=== PATIENT | male | born 1965 | race Hispanic/Latino ===

== ENCOUNTER 2021-01-30 13:21 | Emergency (ER) | payer SELFPAY ==
--- OUTSIDE RECORDS SUMMARY | 2021-01-30 13:23 | XMS REPORT | Continuity of Care Document ---
:1965 Author Organization [facility] t Address [address] [place] [address] Care Team Providers Name Role Phone Doctor Unassigned, Name Attending Clinician Unavailable Jayna Navarrete Attending Clinician Vicky ARIAS Attending Clinician Vicky ARIAS Admitting Clinician Problems This patient has no known problems. Allergies, Adverse Reactions, Alerts This patient has no known allergies or adverse reactions. Medications This patient has no known medications. Procedures This patient has no known procedures. Encounters Start End Encounter Admission Attending Care Care Encounter Source Date/Time Date/Time Type Type Clinicians Facility Department ID 2020-10-25 2020-10-25 Yolanda ROBLES [id number] 00:00:00 00:00:00 Only UnassMARY castillo [id number] [place] [facility] [id number] 2020-10-12 2020-10-14 [facility] Rose De La Paz [facility] [id number] 14:28:00 18:26:00 Encounter Keith Perry [id number] [place] [id number] [place] [id number] 2020-10-12 2020-10-12 Orders Doctor ROBLES [id number] 00:00:00 00:00:00 Only Unassigned, MARY [id number] [place] [id number] 2020-06-25 2020-06-25 Emergency Rose De La Paz [facility] [id number] 14:16:00 15:40:00 Jayna Cristina [id number] [place] [id number] [place] [id number] 2020-06-25 2020-06-25 Orders Doctor MARGARET [id number] 00:00:00 00:00:00 Only Unassigned, MARY [id number] [place] [id number] Results This patient has no known results.
[2021-01-30] MEDS ORDERED: TETRACAINE HCL 0.5% 4ML OPTH ONE (15:05)
--- NOTE | 2021-01-30 15:09 | ER ---
Nurse's Notes [facility] Name: Lino Ward Age: 55 yrs Sex: Male : 1965 Arrival Date: 01/30/2021 Time: 13:24 Bed 24 Private MD: Diagnosis: Pterygium of eye-left;Unspecified visual disturbance-blurry vision Presentation: 01/30 13:36 Chief complaint:. Chief complaint: Patient states: I have not been able to see with my ca1 L eye x 2 weeks. It started happening 2 weeks ago. Denies injury to the L eye. Went to see a regular clinic and was given eye drops but did not help at all. Has not visited an eye doctor. Coronavirus screen: Client denies travel out of the [place] in the last 14 days. At this time, the client does not indicate any symptoms associated with coronavirus-19. Ebola Screen: Patient negative for fever greater than or equal to 101.5 degrees Fahrenheit, and additional compatible Ebola Virus Disease symptoms Patient denies exposure to infectious person. Patient denies travel to an Ebola-affected area in the 21 days before illness onset. No symptoms or risks identified at this time. Initial Sepsis Screen: Does the patient meet any 2 criteria? No. Patient's initial sepsis screen is negative. Does the patient have a suspected source of infection? No. Patient's initial sepsis screen is negative. Risk Assessment: Do you want to hurt yourself or someone else? Patient reports no desire to harm self or others. Onset of symptoms was January 30, 2021. 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 ca1 Historical: - Allergies: 13:44 NKDA; ca1 - PMHx: 13:44 Diabetes - NIDDM; Hypertension; ca1 - PSHx: 13:44 right foot; Appendectomy; ca1 - Immunization history:: Flu vaccine is not up to date. - Social history:: Smoking status: . Screenin:35 Abuse screen: Denies threats or abuse. Denies injuries from another. Nutritional iw screening: No deficits noted. Tuberculosis screening: No symptoms or risk factors identified. Fall Risk None identified. Assessment: 15:13 General: Appears in no apparent distress. Behavior is calm, cooperative. Pain: Denies iw pain. Neuro: Level of Consciousness is awake, alert, obeys commands, Oriented to person, place, time, situation, Moves all extremities. Cardiovascular: Patient's skin is warm and dry. Respiratory: Respiratory effort is even, unlabored, Respiratory pattern is regular, symmetrical. Derm: Skin is intact, is healthy with good turgor. Musculoskeletal: Range of motion:. Vital Signs: 13:36 BP 132 / 78; Pulse 88; Resp 16 S; Temp 97.8(TE); Pulse Ox 98% on R/A; Weight 74.84 kg ca1 (R); Height 5 ft. 5 in. (165.10 cm) (R); Pain 0/10; 13:36 Body Mass Index 27.46 (74.84 kg, 165.10 cm) ca1 ED Course: 13:24 Patient arrived in ED. am2 13:42 Triage completed. ca1 13:44 Arm band placed on right wrist. ca1 14:34 Lion Alaniz NP is PHCP. pm1 14:34 Benny Newman MD is Attending Physician. pm1 14:54 Tavia Cool, NIKA is Primary Nurse. iw 15:20 EYE EXAM AND INTERRUPTING MALAWIAN SPEAKING ONLY. mh5 15:34 Patient has correct armband on for positive identification. iw 15:34 Patient did not have IV access during this emergency room visit. iw Administered Medications: No medications were administered Outcome: 15:08 Discharge ordered by MD. pm1 15:35 Discharged to home ambulatory. iw 15:35 Condition: good 15:35 Discharge instructions given to patient, Instructed on discharge instructions, follow up and referral plans. Demonstrated understanding of instructions, follow-up care. 15:36 Patient left the ED. iw Signatures: Tavia Cool RN RN iw Lion Alaniz NP MATERIAL SPREADER pm1 Luiza Ward 5 Alissa Keene am2 Pauline Mcallister RN RN ca1 Corrections: (The following items were deleted from the chart) 13:43 13:36 Chief complaint: Patient states: I have not been able to see with my L eye x 2 ca1 weeks. It started happening 2 weeks ago. ca1
--- NOTE | 2021-01-30 15:09 | EDPHYS ---
Physician Documentation [facility] Name: Lino Ward Age: 55 yrs Sex: Male : 1965 Arrival Date: 01/30/2021 Time: 13:24 Bed 24 Private MD: ED Physician Benny Newman HPI: 01/30 14:52 This 55 yrs old Male presents to ER via Ambulatory with complaints of Eye pm1 Problem. 14:52 The patient is experiencing blurred vision, to both eyes but worse on the left. Onset: pm1 The symptoms/episode began/occurred 2 week(s) ago. Duration: the symptoms are continuous. Aggravated by nothing. Alleviated by nothing. Associated signs and symptoms: Pertinent positives: mild pain to left eye. Patient wears glasses. Severity of symptoms: in the emergency department the symptoms are worse. The patient has not experienced similar symptoms in the past. Saw a clinic for the same complaint and was told that he has cataracts on both eyes. Given saline eye drops by the clniic. Historical: - Allergies: 13:44 NKDA; ca1 - PMHx: 13:44 Diabetes - NIDDM; Hypertension; ca1 - PSHx: 13:44 right foot; Appendectomy; ca1 - Immunization history:: Flu vaccine is not up to date. - Social history:: Smoking status: . ROS: 14:52 Constitutional: Negative for fever, chills, and weight loss. pm1 14:52 ENT: Negative for injury, pain, and discharge, Neck: Negative for injury, pain, and swelling, Cardiovascular: Negative for chest pain, palpitations, and edema, Respiratory: Negative for shortness of breath, cough, wheezing, and pleuritic chest pain, MS/Extremity: Negative for injury and deformity, Skin: Negative for injury, rash, and discoloration, Neuro: Negative for headache, weakness, numbness, tingling, and seizure. 14:52 Eyes: Positive for blurry vision, pain to left eye. Exam: 15:14 Eyes: Intraocular pressure: right eye = 15mmHg, left eye = 17mmHg. pm1 15:14 Constitutional: This is a well developed, well nourished patient who is awake, alert, pm1 and in no acute distress. Head/Face: Normocephalic, atraumatic. 15:14 Back: No spinal tenderness. No costovertebral tenderness. Full range of motion. Skin: Warm, dry with normal turgor. Normal color with no rashes, no lesions, and no evidence of cellulitis. MS/ Extremity: Pulses equal, no cyanosis. Neurovascular intact. Full, normal range of motion. 15:14 Eyes: Periorbital structures: appear normal, Pupils: no acute changes, normal size, normal accomodation, Extraocular movements: intact throughout, Conjunctiva: ptergium left eye at 9 o'clock. Corneas: foreign body, is not appreciated, a fluorescein strip employed to appreciate the findings, Lids and lashes: appear normal, bilaterally. 15:14 Cardiovascular: Exam negative for acute changes, Rate: normal, Rhythm: regular, Pulses: no pulse deficits are appreciated. 15:14 Respiratory: Exam negative for acute changes, respiratory distress, shortness of breath. 15:14 Neuro: Exam negative for acute changes, Orientation: is normal, Mentation: is normal, Motor: is normal, moves all fours, Sensation: is normal, no obvious gross deficits. Vital Signs: 13:36 BP 132 / 78; Pulse 88; Resp 16 S; Temp 97.8(TE); Pulse Ox 98% on R/A; Weight 74.84 kg ca1 (R); Height 5 ft. 5 in. (165.10 cm) (R); Pain 0/10; 13:36 Body Mass Index 27.46 (74.84 kg, 165.10 cm) ca1 MDM: 14:39 Patient medically screened. pm1 14:59 Data reviewed: vital signs. Data interpreted: Pulse oximetry: on room air is 98 %. pm1 Interpretation: normal. 14:59 ED course: Discussed case and examination with Dr. Jason. No emergent condition pm1 present. Patient needs to follow up with ophthalmology for definitive care.. 15:06 Counseling: I had a detailed discussion with the patient and/or guardian regarding: the pm1 historical points, exam findings, and any diagnostic results supporting the discharge/admit diagnosis, the need for outpatient follow up, for definitive care, an opthalmologist, to return to the emergency department if symptoms worsen or persist or if there are any questions or concerns that arise at home. 21:24 Differential diagnosis: Corneal abrasion of both eyes. Foreign body in both eyes. Acute pm1 glaucoma in both eyes. Cataracts, CVA. 01/30 14:52 Order name: Visual Acuity; Complete Time: 15:07 pm1 01/30 14:52 Order name: Eye Tray; Complete Time: 15:07 pm1 01/30 14:52 Order name: Fluoresene Opth strip; Complete Time: 14:55 pm1 Administered Medications: No medications were administered Disposition: 01/30/21 15:08 Discharged to Home. Impression: Unspecified visual disturbance - blurry vision, Pterygium of eye - left. - Condition is Stable. - Discharge Instructions: Visual Disturbances. - Medication Reconciliation Form, Thank You Letter, Antibiotic Education, Prescription Opioid Use form. - Follow up: Emergency Department; When: As needed; Reason: Worsening of condition. Follow up: Private Physician; When: 1 - 2 days; Reason: Recheck today's complaints, Continuance of care, Re-evaluation by your physician. - Problem is new. - Symptoms are unchanged. Addendum: 01/31/2021 18:36 Co-signature as Attending Physician, Benny Newman MD. m a2 Signatures: Tavia Cool RN RN iw Lion Alaniz NP DIRECTOR OF ACADEMIC SUPPORT pm1 Benny Newman MD MD ma2 Pauline Mcallister RN RN ca1 Corrections: (The following items were deleted from the chart) 01/30 15:09 15:08 01/30/2021 15:08 Discharged to Home. Impression: Pterygium of eye - left; pm1 Unspecified visual disturbance - blurry vision. Condition is Stable. Forms are Medication Reconciliation Form, Thank You Letter, Antibiotic Education, Prescription Opioid Use. Follow up: Emergency Department; When: As needed; Reason: Worsening of condition. Follow up: Private Physician; When: 1 - 2 days; Reason: Recheck today's complaints, Continuance of care, Re-evaluation by your physician. Problem is new. Symptoms are unchanged. pm1 15:36 15:09 01/30/2021 15:08 Discharged to Home. Impression: Unspecified visual disturbance - iw blurry visionPterygium of eye - left. Condition is Stable. Forms are Medication Reconciliation Form, Thank You Letter, Antibiotic Education, Prescription Opioid Use. Follow up: Emergency Department; When: As needed; Reason: Worsening of condition. Follow up: Private Physician; When: 1 - 2 days; Reason: Recheck today's complaints, Continuance of care, Re-evaluation by your physician. Problem is new. Symptoms are unchanged. pm1
[2021-01-30] MEDS ORDERED: FLUORESCEIN SODIUM 1 MG/WRAP ONE (15:10)
[2021-01-30 15:40] VITALS: BP 132/78; TEMP 97.8; O2SAT 98
== END 2021-01-30 15:36 | disposition home or self-care (01) ==
LOC: ER 13:21
DX: H11.002 Unspecified pterygium of left eye (principal); I10 Essential (primary) hypertension
CPT/HCPCS: 99281

== ENCOUNTER 2024-06-21 09:12 | Emergency (ER) | payer OTHER, SELFPAY ==
[2024-06-21 10:17] LABS: Absolute Basophils 0.1 K/uL (0-0.5); Absolute Eosinophils 0.4 K/uL (0-0.5); Absolute Lymphocytes (CBC) 2.8 K/uL (0.7-4.9); Absolute Monocytes 0.6 K/uL (0.1-1.3); Basophils % 1.7 % (0-1.3); Hematocrit 38.6 % (39.6-49.0); Hemoglobin 12.8 g/dL (13.6-17.9); Lymphocytes % 34.9 % (15.3-44.8); MCH 29.2 pg (27.0-35.0); MCHC 33.1 g/dL (32.0-36.0); MCV 88.1 fL (80-100); MPV 9.8 fL (7.6-11.3); Monocytes % 7.3 % (3.3-12.3); Neutrophils % 51.1 % (41.7-73.7); Platelets 300 thou/uL (152-406); RBC Red Blood Cell Count 4.38 M/uL (4.33-5.43); Red Cell Distribution Width 13.9 % (12.1-15.2)
[2024-06-21 10:27] LABS: Anion Gap 10.1 mEq/L (5.0-15.0); Potassium 4.1 mEq/L (3.5-5.1); Troponin High Sensitivity 4.1 pg/mL (<58.9)
--- NOTE | 2024-06-21 10:35 | RAD REPORT ---
EXAM DESCRIPTION: RAD - Wrist Left 3 View - 06/21/2024 10:28 am CLINICAL HISTORY: PAIN COMPARISON: Chest Single View dated 06/21/2024 FINDINGS/IMPRESSION: No acute fracture. No malalignment. No significant focal degenerative changes. Peripheral vascular calcifications.
--- NOTE | 2024-06-21 10:36 | RAD REPORT ---
EXAM DESCRIPTION: RAD - Chest Single View - 06/21/2024 10:28 am CLINICAL HISTORY: PAIN COMPARISON: No comparisons FINDINGS: Lines: None. Lungs: No evidence of edema or pneumonia. Minimal linear scarring or subsegmental atelectasis at the left lung base. Pleural: No significant pleural effusions or pneumothorax. Cardiac: The heart size is within normal limits. Mediastinum: Within normal limits. Bones: No acute fractures. Other: None IMPRESSION: No acute cardiopulmonary disease.
--- NOTE | 2024-06-21 11:09 | EDPHYS ---
Physician Documentation [facility] Name: Lino Ward Age: 58 yrs Sex: Male : 1965 Arrival Date: 06/21/2024 Time: 09:12 Bed 8 Private MD: ED Physician Dex Flores HPI: 06/21 09:40 This 58 yrs old Male presents to ER via Unassigned with complaints of Arm Pain jr8 - left, Lumps on head, Palpitations. 09:40 Treatment prior to arrival includes: no previous treatment. Modifying factors: The jr8 symptoms are alleviated by nothing. the symptoms are aggravated by nothing. Severity of symptoms: At their worst the symptoms were mild, in the emergency department the symptoms are unchanged. The patient has not experienced similar symptoms in the past. The patient has not recently seen a physician. Patient presented to the ED with complaints of bumps on head for two months along with left wrist pain and chest pain with palpitations. . Historical: - Allergies: 09:54 Morphine; mb9 - Home Meds: 09:54 Metformin Oral [Active]; mb9 - PMHx: 09:54 Diabetes - NIDDM; Hypertension; mb9 - PSHx: 09:54 Appendectomy; mb9 - Immunization history:: Adult Immunizations up to date. - Infectious Disease History:: Denies. - Social history:: Smoking status: Patient denies any tobacco usage or history of. ROS: 09:40 Constitutional: Negative for fever, chills, and weight loss, Eyes: Negative for injury, jr8 pain, redness, and discharge, ENT: Negative for injury, pain, and discharge, Neck: Negative for injury, pain, and swelling, Respiratory: Negative for shortness of breath, cough, wheezing, and pleuritic chest pain, Abdomen/GI: Negative for abdominal pain, nausea, vomiting, diarrhea, and constipation, Back: Negative for injury and pain, Neuro: Negative for headache, weakness, numbness, tingling, and seizure, 09:40 Cardiovascular: Positive for chest pain, palpitations, 09:40 MS/extremity: Positive for pain, of the left wrist, 09:40 Skin: Positive for lesions, of the scalp, Exam: 09:40 Constitutional: This is a well developed, well nourished patient who is awake, alert, jr8 and in no acute distress. Eyes: Pupils equal round and reactive to light, extra-ocular motions intact. Lids and lashes normal. Conjunctiva and sclera are non-icteric and not injected. Cornea within normal limits. Periorbital areas with no swelling, redness, or edema. ENT: Nares patent. No nasal discharge, no septal abnormalities noted. Tympanic membranes are normal and external auditory canals are clear. Oropharynx with no redness, swelling, or masses, exudates, or evidence of obstruction, uvula midline. Mucous membranes moist. Neck: Trachea midline, no thyromegaly or masses palpated, and no cervical lymphadenopathy. Supple, full range of motion without nuchal rigidity, or vertebral point tenderness. No Meningismus. 09:40 Cardiovascular: Regular rate and rhythm with a normal S1 and S2. No gallops, murmurs, or rubs. Normal PMI, no JVD. No pulse deficits. Respiratory: Lungs have equal breath sounds bilaterally, clear to auscultation and percussion. No rales, rhonchi or wheezes noted. No increased work of breathing, no retractions or nasal flaring. Abdomen/GI: Soft, non-tender, with normal bowel sounds. No distension or tympany. No guarding or rebound. No evidence of tenderness throughout. Back: No spinal tenderness. No costovertebral tenderness. Full range of motion. Skin: Warm, dry with normal turgor. Normal color. Neuro: Awake and alert, GCS 15, oriented to person, place, time, and situation. Motor strength 5/5 in all extremities. Sensory grossly intact. Normal gait. 09:40 Head/face: Noted is Patient has two scabbed lesions with mild erythema and serous drainage noted to left and right side of parietal regions of scalp. 09:40 Chest/axilla: Inspection: normal, Palpation: tenderness, that is mild, of the anterior aspect of left upper chest, that partially reproduces the patient's complaints, 09:40 Musculoskeletal/extremity: Extremities: grossly normal except: noted in the left wrist : pain, tenderness, Positive Tinel , ROM: intact in all extremities, full active range of motion, full passive range of motion, Circulation is intact in all extremities. Pulses: noted to be 2+ in the right radial artery and left radial artery, Sensation intact. 09:53 ECG was reviewed by the Attending Physician. jr8 Vital Signs: 09:52 BP 141 / 82; Pulse 79; Resp 18; Temp 98; Pulse Ox 100% ; Weight 74.39 kg; Height 5 ft. mb9 5 in. ; Pain 0/10; 11:10 BP 110 / 75; Pulse 74; Resp 18; Pulse Ox 100% on R/A; mb9 09:52 Body Mass Index 27.29 (74.39 kg, 165.1 cm) mb9 09:52 Pain Scale: Adult mb9 MDM: 09:27 Patient medically screened. [facility] 11:03 Data reviewed: vital signs, nurses notes, lab test result(s), EKG, radiologic studies, jr8 plain films. I considered the following discharge prescriptions or medication management in the emergency department I discussed and recommended Over The Counter medications. Counseling: I had a detailed discussion with the patient and/or guardian regarding the historical points, exam findings, and any diagnostic results supporting the discharge/admit diagnosis, lab results, radiology results, the need for outpatient follow up, a dye house vat worker, a family practitioner, to return to the emergency department if symptoms worsen or persist or if there are any questions or concerns that arise at home. Special discussion: Based on the patient's history, exam, and Dx evaluation, there is no indication for emergent intervention or inpatient Tx. It is understood by the patient/guardian that if the Sx's persist or worsen they need to return immediately for re-evaluation. I have referred the patient to see his PCP for further evaluation of high blood pressure. 11:04 Care significantly affected by the following chronic conditions: Diabetes, jr8 Hypertension, Chronic Kidney Disease. 06/21 09:37 Order name: Basic Metabolic Panel; Complete Time: 11:02 06/21 09:37 Order name: CBC with Diff; Complete Time: 11:02 06/21 09:37 Order name: Troponin HS; Complete Time: 11:02 06/21 09:37 Order name: XRAY Chest (1 view); Complete Time: 11:02 06/21 09:37 Order name: Wrist Left (3 View) XRAY; Complete Time: 11:02 06/21 09:37 Order name: EKG; Complete Time: 09:38 06/21 09:37 Order name: Cardiac monitoring; Complete Time: 09:53 06/21 09:37 Order name: EKG - Nurse/Tech; Complete Time: 53 8 06/21 09:37 Order name: IV Saline Lock; Complete Time: 06/21 09:37 Order name: Labs collected and sent; Complete Time: 06/21 09:37 Order name: O2 Per Protocol; Complete Time: 06/21 09:37 Order name: O2 Sat Monitoring; Complete Time: EC:53 Rate is 83 beats/min. Rhythm is regular, Normal Sinus Rhythm. QRS [place] is Normal. IN jr8 interval is normal at 192 msec. QRS interval is normal at 84 msec. QT interval is normal at 423 msec. No Q waves. T waves are Inverted in lead aVL. T waves are Flattened in lead V1. No ST changes noted. Clinical impression: NSR w/ Non-specific ST/T Changes. Interpreted by me. Reviewed by me. 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 jr8 - Chest pain, unspecified jr8 - Chronic kidney disease, unspecified jr8 - Local infection of the skin and subcutaneous tissue, unspecified jr8 Followup: jr8 - With: Ervin Gabriel MD - When: 1 week - Reason: Recheck today's complaints, Continuance of care, Re-evaluation by your physician Discharge Instructions: - Discharge Summary Sheet jr8 - Carpal Tunnel Syndrome jr8 - Nonspecific Chest Pain, Adult jr8 - Diabetic Neuropathy jr8 - Chronic Kidney Disease, Adult jr8 Forms: - Medication Reconciliation Form jr8 - Antibiotic Education jr8 - Prescription Opioid Use jr8 - Patient Portal Instructions jr8 - Leadership Thank You Letter jr8 Prescriptions: - mupirocin 2 % Topical ointment - apply 1 application TOPICAL route 2 times per day; 30 gram tube; Refills: 0, jr8 Product Selection Permitted - Augmentin 875-125 mg Oral Tablet - take 1 tablet ORAL route every 12 hours for 10 days; 20 tablet; Refills: 0, jr8 Product Selection Permitted Signatures: Dispatcher [employer] Dex Whiteside MD MD cha Roszak, Josh, PA PA jr8 Simona Dockery RN RN mb9 Corrections: (The following items were deleted from the chart) 11:06 11:03 I considered the following discharge prescriptions or medication management in jr8 the emergency department I discussed and recommended Over The Counter medications, 8
--- NOTE | 2024-06-21 11:09 | ER ---
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 Coronavirus screen: Vaccine status: Patient reports receiving the 2nd dose of the covid vaccine. Ebola Screen: No symptoms or risks identified at this time. Initial Sepsis Screen: Does the patient meet any 2 criteria? No. Patient's initial sepsis screen is negative. Does the patient have a suspected source of infection? No. Patient's initial sepsis screen is negative. Risk Assessment: Do you want to hurt yourself or someone else? Patient reports no desire to harm self or others. Onset of symptoms was June 17, 2024. 09:52 Acuity: MARITZA 3 mb9 09:52 Method Of Arrival: Ambulatory mb9 Triage Assessment: 09:55 General: Appears in no apparent distress. Behavior is calm, cooperative. Pain: Denies mb9 pain. EENT: No signs and/or symptoms were reported regarding the EENT system. Neuro: [place]gu[place] Agitation-Sedation Scale (RASS): 0 - Alert and Calm Level of Consciousness is awake, alert, obeys commands, Oriented to person, place, time, situation, Appropriate for age. Cardiovascular: Heart tones S1 S2 present Patient's skin is warm and dry. Cardiovascular: Reports palpitations. Respiratory: Airway is patent Respiratory effort is even, unlabored, Respiratory pattern is regular, symmetrical. GI: Abdomen is flat, non-distended, Bowel sounds present X 4 quads. Abd is soft and non tender X 4 quads. : No signs and/or symptoms were reported regarding the genitourinary system. Derm: Skin is pink, warm \\T\\ dry. Musculoskeletal: Range of motion: intact in all extremities. Historical: - Allergies: 09:54 Morphine; mb9 - Home Meds: 09:54 Metformin Oral [Active]; mb9 - PMHx: 09:54 Diabetes - NIDDM; Hypertension; mb9 - PSHx: 09:54 Appendectomy; mb9 - Immunization history:: Adult Immunizations up to date. - Infectious Disease History:: Denies. - Social history:: Smoking status: Patient denies any tobacco usage or history of. Screenin:56 [facility] ED Fall Risk Assessment (Adult) History of falling in the last 3 months, mb9 including since admission No falls in past 3 months (0 pts) Confusion or Disorientation No (0 pts) Intoxicated or Sedated No (0 pts) Impaired Gait No (0 pts) Mobility Assist Device Used No (0 pt) Altered Elimination No (0 pt) Score/Fall Risk Level 0 - 2 = Low Risk Oriented to surroundings, Maintained a safe environment, Educated pt \\T\\ family on fall prevention, incl call for assistance when getting out of bed. Abuse screen: Denies threats or abuse. Nutritional screening: No deficits noted. Tuberculosis screening: No symptoms or risk factors identified. Assessment: :55 Reassessment: see triage assessment. mb9 11:09 Reassessment: No changes from previously documented assessment. Patient and/or family mb9 updated on plan of care and expected duration. Pain level reassessed. Patient is alert, oriented x 3, equal unlabored respirations, skin warm/dry/pink. Vital Signs: 09:52 BP 141 / 82; Pulse 79; Resp 18; Temp 98; Pulse Ox 100% ; Weight 74.39 kg; Height 5 ft. mb9 5 in. ; Pain 0/10; 11:10 BP 110 / 75; Pulse 74; Resp 18; Pulse Ox 100% on R/A; mb9 09:52 Body Mass Index 27.29 (74.39 kg, 165.1 cm) mb9 09:52 Pain Scale: Adult mb9 ED Course: 09:19 Patient arrived in ED. im 09:24 Rey Chatman PA is PHCP. jr8 09:24 Dex Flores MD is Attending Physician. jr8 09:41 Simona Dockery RN is Primary Nurse. mb9 09:41 Arm band placed on. mb9 09:52 Initial lab(s) drawn, by me, sent to lab. EKG done, by ED staff, reviewed by Rey BANDA. Inserted saline lock: 22 gauge in right forearm, using aseptic technique. Blood collected. Flushed with 10 mL NS. 09:54 Triage completed. mb9 09:56 Placed in gown. Bed in low position. Call light in reach. Side rails up X 1. Provided mb9 Education on: press call light if needing anything. Client placed on continuous cardiac and pulse oximetry monitoring. NIBP monitoring applied. manager monitoring on. Door closed. Noise minimized. Warm blanket given. Pillow given. 09:56 No provider procedures requiring assistance completed. mb9 10:30 XRAY Chest (1 view) In Process Unspecified. EDMS 10:30 Wrist Left (3 View) XRAY In Process Unspecified. EDMS 11:07 Ervin Gabriel MD is Referral Physician. jr8 11:16 IV discontinued, intact, bleeding controlled, No redness/swelling at site. Pressure mb9 dressing applied. Administered Medications: No medications were administered Medication: :56 VIS not applicable for this client. mb9 Outcome: 11:08 Discharge ordered by . jr8 11:16 Discharged to home ambulatory, mb9 11:16 Condition: stable 11:16 Discharge instructions given to patient, Instructed on discharge instructions, follow up and referral plans. Demonstrated understanding of instructions, follow-up care, medications, Prescriptions given X 2, 11:16 Patient left the ED. mb9 Signatures: Dispatcher [employer] PATYMI Rey Chatman PA PA jr8 Wilkerson, Mary Beth, RN RN mb9 Cynthia Ferreira
[2024-06-21 11:38] VITALS: TEMP 98; O2SAT 100
[2024-06-21 11:41] VITALS: BP 110/75
--- OUTSIDE RECORDS SUMMARY | 2024-06-23 12:27 | XMS REPORT | Continuity of Care Document ---
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 capsule by mouth 2 (two) times daily. [facility] lisinopriL 10 mg tablet 01-09 00:00: 00 04-24 00:00 :00 No [id number] 10mg Take 1 tablet by mouth daily. [facility] linaGLIPtin (TRADJENTA) 5 mg tablet 01-09 00:00: 00 01-25 00:00 :00 No [id number] 5mg Take 1 tablet by mouth daily. [facility] povidone-io dine (BETADINE) 10 % solution 2023-0 2-16 15:00: 00 Yes Topical, DAILY, First dose on Sat12/20/22 at 0900, Until Discontinu ed, Routine [facility] lisinopriL 10 mg tablet 12-20 11:47: 48 Yes 10mg Take 10 mg by mouth daily. [facility] metFORMIN 1,000 mg tablet 12-20 11:47: 48 Yes 1000mg Take 1,000 mg by mouth 2 (two) times daily with meals. [facility] glipiZIDE 10 mg tablet 12-20 11:47: 48 Yes 10mg Take 10 mg by mouth daily. [facility] atorvastati n (LIPITOR) tablet 40 mg 12-20 03:00: 00 Yes 40mg 40 mg, Oral, QHS, First dose on Sat12/19/22 at 2100, Until Discontinu ed, Routine [facility] enoxaparin (LOVENOX) injection 30 mg 12-19 23:00: 00 Yes 30mg 30 mg, Subcutaneo us, DAILY, First dose on Sat12/19/22 at 1700, Until Discontinu ed, [facility]OTROL[facility] 10 mg 12-19 15:00: 00 Yes 10mg 10 mg, Oral, DAILY, First dose on Sat12/19/22 at 0900, Until Discontinu ed, [facility] sennos[facility]- docusate sodium (SENOKOT-S) 8.6-50 mg per tablet 1 tablet 12-19 15:00: 00 Yes 1{tbl} 1 tablet, Oral, DAILY, First dose on Sat12/19/22 at 0900, Until Discontinu ed, Routine [facility] clindamycin (CLEOCIN HCL) capsule 300 mg 12-19 14:00: 00 Yes 300mg 300 mg, Oral, TID, First dose on Sat12/19/22 at 0800, Until Discontinu ed, JENNIFER
Re ason for Anti-Infec tive: Documented Infection< br>Documen vern Infection Site: Skin / Soft Tissue
Duration of Therapy: 7 days
Re stricted use approved by: ED PROVIDER [facility] gabapentin (NEURONTIN) capsule 300 mg 12-19 14:00: 00 Yes 300mg 300 mg, Oral, BID, First dose on Sat12/19/22 at 0800, Until Discontinu ed, Routine [facility] aspirin chewable tablet 81 mg 12-19 14:00: 00 Yes 81mg 81 mg, Oral, QAM WITH BREAKFAST, First dose on Sat12/19/22 at 0800, Until Discontinu ed, Routine [facility] insulin NPH and regular human 70-30 (70-30 U-100 INSULIN) 100 unit/mL (70-30) injection 10 Units 12-19 13:30: 00 Yes 10U 10 Units, Subcutaneo us, BIDAC, First dose on Sat12/19/22 at 0730, Until Discontinu ed, Routine [facility] ciprofloxac in HCl (CIPRO) tablet 500 mg 12-19 12:00: 00 Yes 500mg 500 mg, Oral, Q24H ABX, First dose on Sat12/19/22 at 0600, Until Discontinu ed, JENNIFER
Re ason for Anti-Infec tive: Documented Infection< br>Documen vern Infection Site: Skin / Soft Tissue
Duration of Therapy: 7 days [facility] NaCl 0.9% (NS) IV infusion 1,000 mL 12-19 08:30: 00 12-20 08:29 :00 No 1000mL at 100 mL/hr, IV Infusion, CONTINUOUS , Starting on Sat12/19/22 at 0230, Until Sat12/20/22 at 0229, Routine [facility] ondansetron (ZOFRAN (PF)) injection 4 mg 12-19 07:15: 38 Yes 4mg 4 mg, Slow IV Push, Q6HPRN, Starting on Sat12/19/22 at 0115, Until Discontinu ed, Routine, Nausea and Vomiting (N/V) [facility] HYDROcodone -acetaminop hen (NORCO 5) 5-325 mg tablet 1 tablet 12-19 07:15: 34 12-21 07:14 :34 No 1{tbl} 1 tablet, Oral, Q6HPRN, Starting on Sat12/19/22 at 0115, Until Sat12/21/22 at 0114, Routine, Pain (scale 4-6) [facility] acetaminoph en (TYLENOL) tablet 650 mg 12-19 07:15: 32 Yes 650mg 650 mg, Oral, Q6HPRN, Starting on Sat12/19/22 at 0115, Until Discontinu ed, Routine, Pain (scale 1-3) [facility] HYDROcodone -acetaminop hen (NORCO) 10-325 mg tablet 1 tablet 12-19 04:04: 53 12-19 07:16 :02 No 1{tbl} 1 tablet, Oral, Q6HPRN, Starting on Sat12/18/22 at 2204, Until Sat12/19/22 at 0116, Routine, Pain (scale 4-6) [facility] piperacilli n-tazobacta m (ZOSYN) 3.375 g in NaCl 0.9% (NS) 50 mL MINI-BAG 12-18 22:45: 00 12-19 01:34 :00 No 3.375g 3.375 g, IV Piggyback, ONCE, 1 dose, On Sat12/18/22 at 1645, Administer over 30 Minutes, 50 mL
Reas on for Anti-Infec tive: Empiric Therapy for Suspected Infection< br>Empiric Therapy Site: Skin / Soft tissue
Duration of therapy: 72 hours [facility] lisinopriL 10 mg tablet 12-13 17:53: 09 Yes 10mg Take 10 mg by mouth daily. [facility] metFORMIN 1,000 mg tablet 12-13 17:53: 09 Yes 1000mg Take 1,000 mg by mouth 2 (two) times daily with meals. [facility] glipiZIDE 10 mg tablet 12-13 17:53: 09 Yes 10mg Take 10 mg by mouth daily. [facility] lisinopriL 10 mg tablet 12-13 11:38: 47 Yes 10mg Take 10 mg by mouth daily. [facility] metFORMIN 1,000 mg tablet 12-13 11:38: 47 Yes 1000mg Take 1,000 mg by mouth 2 (two) times daily with meals. [facility] glipiZIDE 10 mg tablet 12-13 11:38: 47 Yes 10mg Take 10 mg by mouth daily. [facility] piperacilli n-tazobacta m (ZOSYN) 3.375 g in NaCl 0.9% (NS) 50 mL MINI-BAG 12-13 06:00: 00 01-21 04:59 :00 No 3.375g 3.375 g, IV Piggyback, Q8H ABX, 117 doses, First dose on Asuncion 12/13/22 at 0000, Last dose on Sat01/20/23 at 1600, Administer over 4 Hours, 50 mL
Reas on for Anti-Infec tive: Documented Infection& lt;br>Docu mented Infection Site: Bone
Du ration of Therapy: Other (see Comments) [facility] lactated ringers IV infusion 1,000 mL 12-13 00:45: 00 Yes 1000mL at 75 mL/hr, 1,000 mL, IV Infusion, CONTINUOUS , Starting on Sat12/12/22 at 1845, Until Discontinu ed, Routine, PACU [facility] HYDROcodone -acetaminop hen (NORCO 5) 5-325 mg tablet 1 tablet 12-13 00:45: 00 12-13 00:57 :00 No 1{tbl} 1 tablet, Oral, ONCE, 1 dose, On Sat12/12/22 at 1845, Routine, PACU [facility] bupivacaine (preserv free) (SENSORCAIN E MPF) 0.25 % (2.5 mg/mL) injection 12-13 00:39: 00 12-13 01:00 :26 No PRN, Starting on Sat12/12/22 at 1839, Until Sat12/12/22 at 1900, Routine, Intra-op [facility] ciprofloxac in HCl 500 mg tablet 12-13 00:00: 00 12-28 05:59 :00 No [id number] 500mg Take 1 tablet by mouth every 12 (twelve) hours for 14 days. [facility] clindamycin 300 mg capsule 12-13 00:00: 12-28 05:59 :00 No [id number] 300mg Take 1 capsule by mouth 3 (three) times daily for 14 days. [facility] piperacilli n-tazobacta m (ZOSYN) 3.375 g in NaCl 0.9% (NS) 50 mL MINI-BAG 12-12 23:00: 00 12-12 22:50 :00 No 3.375g 3.375 g, IV Piggyback, ONCE, 1 dose, On Sat12/12/22 at 1700, Administer over 30 Minutes, 50 mL
Reas on for Anti-Infec tive: Documented Infection< br>Documen vern Infection Site: Bone
Du ration of Therapy: 14 days [facility] ampicillin- sulbactam (UNASYN) 3 g in NaCl 0.9% (NS) 100 mL MINI-BAG 12-12 16:45: 00 12-12 21:23 :53 No 3g 3 g, IV Piggyback, Q6H ABX, 56 doses, First dose on Sat12/12/22 at 1045, Last dose on Sat12/26/22 at 0445, Administer over 30 Minutes, 100 mL
Reas on for Anti-Infec tive: Documented Infection& lt;br>Docu mented Infection Site: Bone
Du ration of Therapy: 14 days [facility] enoxaparin 30 mg/0.3 mL injection 12-12 00:00: 00 01-10 05:59 :00 No [id number] 30mg inject 0.3 mL under the skin every 12 (twelve) hours for 28 days. [facility] KCL (KLOR-CON M20) tablet 40 mEq 12-11 21:45: 00 12-11 21:42 :00 No 40meq 40 mEq, Oral, ONCE, 1 dose, On Sat12/11/22 at 1545, Routine [facility] loperamide (IMODIUM A-D) capsule 2 mg 12-11 21:00: 13 Yes 2mg 2 mg, Oral, Q4HPRN, Starting on Sat12/11/22 at 1500, Until Discontinu ed, Routine, Diarrhea [facility] gadoteridol (PROHANCE-1 5 mL) injection 14.52 mL 12-11 03:00: 00 12-11 03:00 :00 No [id number] .2mL/kg 14.52 mL (0.2 mL/kg ?72.6 kg), Intravenou s, ONCE, 1 dose, On Sat12/10/22 at 2100, Routine [facility] piperacilli n-tazobacta m (ZOSYN) 3.375 g in NaCl 0.9% (NS) 50 mL MINI-BAG 12-11 00:00: 00 12-12 15:44 :29 No 3.375g 3.375 g, IV Piggyback, Q8H ABX, 84 doses, First dose on Sat12/10/22 at 1800, Last dose on Sat01/07/23 at 1000, Administer over 4 Hours, 50 mL
Reas on for Anti-Infec tive: Documented Infection< br>Documen vern Infection Site: Bone
Du ration of Therapy: Other (see Comments) [facility] doxycycline hyclate (Vibramycin ) capsule 100 mg 12-11 00:00: 00 12-12 15:44 :29 No 100mg 100 mg, Oral, Q12HA2, 56 doses, First dose on Sat12/10/22 at 1800, Last dose on Sat01/07/23 at 0600, JENNIFER
Re ason for Anti-Infec tive: Documented Infection< br>Documen vern Infection Site: Bone
Du ration of Therapy: Other (see Comments) [facility] piperacilli n-tazobacta m (ZOSYN) 3.375 g in NaCl 0.9% (NS) 50 mL MINI-BAG 12-10 16:15: 00 12-10 16:52 :00 No 3.375g 3.375 g, IV Piggyback, ONCE, 1 dose, On 12/10/22 at 1015, Administer over 30 Minutes, 50 mL
Reas on for Anti-Infec tive: Documented Infection< br>Documen vern Infection Site: Bone
Du ration of Therapy: Other (see Comments) [facility] atorvastati n (LIPITOR) tablet 40 mg 12-10 03:00: 00 Yes 40mg 40 mg, Oral, QHS, First dose on 12/09/22 at 2100, Until Discontinu ed, Routine [facility] ampicillin- sulbactam (UNASYN) 3 g in NaCl 0.9% (NS) 100 mL MINI-BAG 12-09 18:45: 00 12-10 15:16 :08 No 3g 3 g, IV Piggyback, Q6H ABX, 56 doses, First dose on 12/09/22 at 1245, Last dose on 12/23/22 at 0645, Administer over 30 Minutes, 100 mL
Reas on for Anti-Infec tive: Documented Infection& lt;br>Docu mented Infection Site: Bone
Du ration of Therapy: 14 days [facility] enoxaparin (LOVENOX) injection 40 mg 12-09 15:00: 00 Yes 40mg 40 mg, Subcutaneo us, DAILY, First dose on 12/09/22 at 0900, Until Discontinu ed, Routine [facility] Sliding Scale Insulin - Lispro (HumaLOG) + Fsbg Testing 12-09 14:00: 00 Yes Subcutaneo us, TID MEALS+HS, First dose on 12/09/22 at 0800, Until Discontinu ed, Routine [facility] gabapentin (NEURONTIN) capsule 300 mg 12-09 14:00: 00 Yes 300mg 300 mg, Oral, BID, First dose on 12/09/22 at 0800, Until Discontinu ed, Routine [facility] insulin NPH and regular human 70-30 (70-30 U-100 INSULIN) 100 unit/mL (70-30) injection 10 Units 12-09 13:30: 00 Yes 10U 10 Units, Subcutaneo us, BIDAC, First dose on 12/09/22 at 0730, Until Discontinu ed, Routine [facility] hydrALAZINE (APRESOLINE ) tablet 10 mg 12-09 11:37: 48 Yes 10mg 10 mg, Oral, Q8HPRN, Starting on 12/09/22 at 0537, Until Discontinu ed, Routine, SBP >160 [facility] lactated ringers IV infusion 1,000 mL 12-09 03:15: 00 12-12 22:23 :08 No 1000mL at 125 mL/hr, 1,000 mL, IV Infusion, CONTINUOUS , Starting on 12/08/22 at 2115, Until 12/12/22 at 1623, Routine [facility] ondansetron (ZOFRAN (PF)) injection 4 mg 12-09 03:09: 47 Yes 4mg 4 mg, Slow IV Push, Q6HPRN, Starting on 12/08/22 at 210, Until Discontinu ed, Routine, Nausea and Vomiting (N/V) [facility] HYDROcodone -acetaminop hen (NORCO 5) 5-325 mg tablet 1 tablet 12-09 03:09: 41 12-11 03:08 :41 No 1{tbl} 1 tablet, Oral, Q6HPRN, Starting on 12/08/22 at 210, Until 12/10/22 at 210, Routine, Pain (scale 4-6) [facility] acetaminoph en (TYLENOL) tablet 650 mg 12-09 03:09: 37 Yes 650mg 650 mg, Oral, Q6HPRN, Starting on 12/08/22 at 210, Until Discontinu ed, Routine, Pain (scale 1-3) [facility] dextrose 10% (D10W) bolus infusion 250 mL 12-09 03:08: 03 Yes 250mL 250 mL, IV Infusion, PRN - SEE INSTRUCTIO NS, Administer over 60 Minutes, Other, If blood glucose is < or = 70 mg/dL and patient is unable to swallow or has mental status changes, Starting on 12/08/22 at 2108
If blood glucose is < or = 70 mg/dL and patient is unable to swallow or has mental status changes (Give glucagon order if patient needs fluid restrictio n): IF IV access available: Dextrose 10%. 1. 125 mL (? bag) of D10W IV infusion - equivalent to 12.5 g dextrose 2. Blood glucose - draw blood glucose 15 minutes after D10W Administra tion. 3. If blood glucose is < 80 mg/dL, repeat.
[facility] glucagon (GLUCAGEN DIAGNOSTIC KIT) injection 1 mg 12-09 03:07: 59 Yes 1mg 1 mg, Intramuscu lar, PRN, Starting on 12/08/22 at 2107, Until Discontinu ed, JENNIFER, Blood Glucose < or = 70 mg/dL and patient is NPO, unable to swallow or has mental changes. [facility] morpHINE (4 mg/mL) injection 4 mg 12-09 01:00: 00 12-09 00:25 :00 No 4mg 4 mg, Slow IV Push, ONCE, 1 dose, On 12/08/22 at 1900, JENNIFER [facility] ondansetron (ZOFRAN (PF)) injection 4 mg 12-09 00:15: 00 12-09 00:25 :00 No 4mg 4 mg, Slow IV Push, ONCE, 1 dose, On 12/08/22 at 1815, JENNIFER [facility] NaCl 0.9% (NS) bolus infusion 1,000 mL 12-08 23:30: 00 12-09 01:15 :00 No 1000mL at 999 mL/hr, 1,000 mL, IV Infusion, ONCE, 1 dose, On 12/08/22 at 1730, JENNIFER [facility] vancomycin (VANCOCIN) 1,000 mg in NaCl 0.9% (NS) 250 mL VIAL-MATE IV piggyback 12-08 23:30: 00 12-09 00:11 :00 No 1000mg 1,000 mg, IV Piggyback, ONCE, 1 dose, On 12/08/22 at 1730, Administer over 60 Minutes, 250 mL
Reas on for Anti-Infec tive: Documented Infection< br>Documen vern Infection Site: Skin / Soft Tissue
Duration of Therapy: 7 days [facility] ketorolac (TORADOL) injection 30 mg 12-08 23:30: 00 12-08 23:02 :00 No 30mg 30 mg, Slow IV Push, ONCE, 1 dose, On 12/08/22 at 1730, JENNIFER [facility] insulin regular human (HUMULIN R) injection 6 Units 12-08 23:30: 00 12-08 23:11 :00 No 6U 6 Units, Subcutaneo us, ONCE, 1 dose, On 12/08/22 at 1730, JENNIFER
In dication for insulin: Hyperglyce [facility] lisinopriL 10 mg tablet 12-08 21:12: 01 Yes 10mg Take 10 mg by mouth daily. [facility] metFORMIN 1,000 mg tablet 12-08 21:12: 01 Yes 1000mg Take 1,000 mg by mouth 2 (two) times daily with meals. [facility] glipiZIDE 10 mg tablet 12-08 21:12: 01 Yes 10mg Take 10 mg by mouth daily. [facility] cefTRIAXone (ROCEPHIN) 1,000 mg in NaCl 0.9% (NS) 50 mL MINI-BAG 12-08 19:30: 00 12-08 20:57 :00 No 1000mg 1,000 mg, IV Piggyback, ONCE, 1 dose, On 12/08/22 at 1330, Administer over 30 Minutes, 50 mL
Reas on for Anti-Infec tive: Empiric Therapy for Suspected Infection< br>Empiric Therapy Site: Skin / Soft tissue
Duration of therapy: 72 hours [facility] iopamidol (ISOVUE 370-500 mL) injection 88 mL 12-01 23:45: 00 12-02 00:00 :00 No [id number] 88mL 88 mL, Intravenou s, ONCE, 1 dose, On 12/01/22 at 1800, Routine [facility] ondansetron (ZOFRAN (PF)) injection 4 mg 12-01 22:30: 00 12-01 21:46 :00 No 4mg 4 mg, Slow IV Push, ONCE, 1 dose, [facility]01[facility]22 [facility] 1630[facility] 975 mg 12-01 22:30: 00 12-01 21:46 :00 No 975mg 975 mg, Oral, ONCE, 1 dose, On 12/01/22 at 1630, [facility] 15 mg 12-01 22:15: 00 12-01 21:45 :00 No 15mg 15 mg, Slow IV Push, ONCE, 1 dose, On 12/01/22 at 1615, [facility] mg [facility] 12-01 00:00: 00 12-08 00:00 :00 No [id number] 500mg Take 1 tablet by mouth 2 (two) times daily with meals for 10 days. [facility] ondansetron 4 mg disintegrat ing tablet 12-01 00:00: 00 12-08 00:00 :00 No [id number] 4mg Take 1 tablet by mouth every 4 (four) hours as needed for Nausea and Vomiting (N/V). [facility] aspirin 81 mg chewable tablet 2021-11 00:00: 00 Yes [id number] 81mg Take 1 tablet by mouth daily with breakfast. [facility] gabapentin 300 mg capsule 2021-11 00:00: 00 Yes [id number] 300mg Take 1 capsule by mouth 2 (two) times daily. [facility] atorvastati n 40 mg tablet 2021-11 00:00: 00 Yes [id number] 40mg Take 1 tablet by mouth at bedtime. [facility] collagenase 250 unit/gram ointment 2021-11 00:00: 00 12-08 00:00 :00 No [id number] Apply to affected area(s) daily. [facility] acetaminoph en-codeine 300-30 mg tablet 2021-11 00:00: 00 12-08 00:00 :00 No [id number] 1{tbl} Take 1 tablet by mouth every 4 (four) hours as needed for Pain (scale 7-10). Indication s: acute pain [facility] collagenase 250 unit/gram ointment 2021-11 00:00: 00 Yes [id number] Apply to affected area(s) daily. [facility] atorvastati n 40 mg tablet 2021-11 00:00: 00 Yes [id number] 40mg Take 1 tablet by mouth at bedtime. [facility] gabapentin 300 mg capsule 2021-11 00:00: 00 Yes [id number] 300mg Take 1 capsule by mouth 2 (two) times daily. [facility] insulin NPH and regular human 70-30 100 unit/mL (70-30) injection 2021-11 00:00: 00 01-25 00:00 :00 No [id number] 10U inject 10 Units under the skin 2 (two) times daily before breakfast and dinner. [facility] acetaminoph en-codeine 300-30 mg tablet 2021-11 00:00: 00 10-25 05:59 :00 No [id number] 1{tbl} Take 1 tablet by mouth every 4 (four) hours as needed for Pain (scale 7-10) for up to 7 days. Indication s: acute pain [facility] collagenase 250 unit/gram ointment 2021-11 00:00: 00 Yes [id number] Apply to affected area(s) daily. [facility] acetaminoph en (TYLENOL) tablet 650 mg 2021-11 02:29: 25 Yes 650mg 650 mg, Oral, Q4HPRN, Starting on Sat09/05/22 at 2129, Until Discontinu ed, Routine, Pain (scale 1-3) [facility] amoxicillin -clavulanat e (AUGMENTIN) 875-125 mg per tablet 1 tablet 2021-11 01:00: 00 10-18 01:59 :00 No 1{tbl} 1 tablet, Oral, Q12H, 84 doses, First dose on Sat09/05/22 at 2000, Last dose on Sat10/17/22 at 0800, Routine
Reason for Anti-Infec tive: Documented Infection< br>Documen vern Infection Site: Skin / Soft Tissue
Duration of Therapy: Other (see Comments) [facility] aspirin 81 mg chewable tablet 2021-11 00:00: 00 Yes [id number] 81mg Take 1 tablet by mouth daily with breakfast. [facility] amoxicillin -clavulanat e 875-125 mg per tablet 2021-11 00:00: 00 10-22 05:59 :00 No [id number] 1{tbl} Take 1 tablet by mouth every 12 (twelve) hours for 45 days. [facility] metoclopram victorino HCl (REGLAN) injection 10 mg 2021-11 23:00: 00 Yes 10mg 10 mg, Slow IV Push, Q6H, First dose on Sat09/05/22 at 1800, Until Discontinu ed, Routine [facility] collagenase (SANTYL) ointment 2021-11 14:00: 00 Yes Topical (Apply To Affected Areas), DAILY, First dose on Sat09/05/22 at 0900, Until Discontinu ed, Routine [facility] metoclopram victorino HCl 10 mg tablet 2021-11 00:00: 00 12-08 00:00 :00 No [id number] 10mg Take 1 tablet by mouth every 6 (six) hours as needed for Nausea and Vomiting (N/V). [facility] atorvastati n 20 mg tablet 2021-11 00:00: 00 10-06 05:59 :00 No [id number] 20mg Take 1 tablet by mouth at bedtime for 30 days. [facility] lisinopriL 10 mg tablet 2021-11 00:00: 00 10-06 05:59 :00 No [id number] 10mg Take 1 tablet by mouth daily for 30 days. [facility] traMADoL 50 mg tablet 2021-11 00:00: 00 09-11 05:59 :00 No [id number] 50mg Take 1 tablet by mouth every 8 (eight) hours as needed for Pain (scale 7-10) for up to 5 days. Indication s: acute pain [facility] amoxicillin -clavulanat e 875-125 mg per tablet 2021-11 00:00: 00 09-06 00:00 :00 No [id number] 1{tbl} Take 1 tablet by mouth every 12 (twelve) hours for 30 days. [facility] gadobenate dimeglumine (MULTIHANCE -15 mL) injection 15.1 mL 2021-11 16:45: 00 09-04 16:45 :00 No [id number] .2mL/kg 15.1 mL (0.2 mL/kg ?75.5 kg), Intravenou s, ONCE, 1 dose, On Sat09/04/22 at 1145, Routine [facility] insulin NPH and regular human 70-30 (70-30 U-100 INSULIN) 100 unit/mL (70-30) injection 10 Units 2021-11 12:30: 00 Yes 10U 10 Units, Subcutaneo us, BIDAC, First dose (after last modificati on) on Sat09/04/22 at 0730, Until Discontinu ed, Routine [facility] pantoprazol e (PROTONIX) injection 40 mg 2021-11 22:30: 00 Yes 40mg 40 mg, Slow IV Push, DAILY, First dose on Sat09/03/22 at 1730, Until Discontinu ed [facility] proMETHazin e (PHENERGAN) 25 mg in NaCl 0.9% (NS) 50 mL IV piggyback 2021-11 22:29: 09 09-05 22:46 :45 No 25mg 25 mg, IV Piggyback, Q6HPRN, Starting on Sat09/03/22 at 1729, Until Sat09/05/22 at 1746, Routine, N/V unresponsi ve to Ondansetro n [facility] atorvastati n (LIPITOR) tablet 20 mg 2021-11 02:00: 00 Yes 20mg 20 mg, Oral, QHS, First dose on Sat09/02/22 at 2100, Until Discontinu ed, Routine [facility] Vancomycin 750 mg in NaCl 0.9% (NS) 250 mL VIAL-MATE 2021-11 23:00: 00 09-05 19:37 :41 No 750mg 750 mg, IV Piggyback, Q12H ABX, First dose (after last reorder) on Sat09/02/22 at 1800, Until Discontinu ed, Administer over 60 Minutes, 250 mL
Reas on for Anti-Infec tive: Documented Infection< br>Documen vern Infection Site: Skin / Soft Tissue
Duration of Therapy: Other (see Comments) [facility] enoxaparin (LOVENOX) injection 40 mg 2021-11 22:00: 00 Yes 40mg 40 mg, Subcutaneo us, DAILY, First dose on Sat09/02/22 at 1700, Until Discontinu ed, Routine [facility] piperacilli n-tazobacta m (ZOSYN) 3.375 g in NaCl 0.9% (NS) 50 mL MINI-BAG 2021-11 17:30: 00 09-05 19:37 :41 No 3.375g 3.375 g, IV Piggyback, Q8H ABX, 42 doses, First dose (after last reorder) on Sat09/02/22 at 1230, Last dose on Sat09/16/22 at 0430, Administer over 4 Hours, 50 mL
Reas on for Anti-Infec tive: Documented Infection< br>Documen vern Infection Site: Skin / Soft Tissue
Duration of Therapy: Other (see Comments) [facility] lactobacill us acidophilus tablet 0.5 mg 2021-11 14:00: 00 Yes .5mg 0.5 mg, Oral, DAILY, First dose on Sat09/02/22 at 0900, Until Discontinu ed, Routine [facility] magnesium sulfate in water 2 gram/50 mL (4 %) infusion 2 g 2021-11 13:45: 00 09-02 14:32 :00 No 2g 2 g, IV Piggyback, Administer over 60 Minutes, ONCE, 1 dose, On Sat09/02/22 at 0845, Routine [facility] NaCl 0.9% (NS) IV infusion 1,000 mL 2021-11 13:15: 00 09-04 15:54 :01 No 1000mL at 50 mL/hr, IV Infusion, CONTINUOUS , Starting on Sat09/02/22 at 0815, Until Sat09/04/22 at 1054, Routine [facility] iopamidol (ISOVUE 370-500 mL) injection 64 mL 2021-11 13:15: 00 09-02 12:10 :00 No [id number] 64mL 64 mL, Intravenou s, ONCE, 1 dose, On Sat09/02/22 at 0815, Routine [facility] magnesium oxide (MAG-OX 400) tablet 400 mg 2021-11 13:00: 00 Yes 400mg 400 mg, Oral, BID, First dose on Sat09/02/22 at 0800, Until Discontinu ed, Routine [facility] docusate (COLACE) capsule 100 mg 2021-11 13:00: 00 Yes 100mg 100 mg, Oral, BID, First dose on Sat09/02/22 at 0800, Until Discontinu ed, Routine [facility] [place] [facility] Sliding Scale Insulin - Lispro (HumaLOG) + Fsbg Testing 2021-11 13:00: 00 Yes Subcutaneo us, TID MEALS+HS, First dose on 09/02/22 at 0800, Until Discontinu ed, Routine [facility] insulin NPH and regular human 70-30 (70-30 U-100 INSULIN) 100 unit/mL (70-30) injection 15 Units 2021-11 12:30: 00 09-03 22:29 :21 No 15U 15 Units, Subcutaneo us, BIDAC, First dose on 09/02/22 at 0730, Until Discontinu ed, Routine [facility] aspirin chewable tablet 81 mg 2021-11 12:00: 00 Yes 81mg 81 mg, Oral, QAM WITH BREAKFAST, First dose on 09/02/22 at 0700, Until Discontinu ed, Routine [facility] morpHINE (2 mg/mL) injection 2 mg 2021-11 11:16: 28 Yes 2mg 2 mg, Slow IV Push, Q4HPRN, Starting on 09/02/22 at 0616, Until Discontinu ed, Routine, Pain (scale 7-10) [facility] traMADoL (ULTRAM) tablet 50 mg 2021-11 11:16: 20 Yes 50mg 50 mg, Oral, Q8HPRN, Starting on 09/02/22 at 0616, Until Discontinu ed, Routine, Pain (scale 4-6) [facility] ondansetron (ZOFRAN (PF)) injection 4 mg 2021-11 11:16: 14 Yes 4mg 4 mg, Slow IV Push, Q6HPRN, Starting on 09/02/22 at 0616, Until Discontinu ed, Routine, Nausea and Vomiting (N/V) [facility] glucagon (GLUCAGEN DIAGNOSTIC KIT) injection 1 mg 2021-11 11:13: 29 Yes 1mg 1 mg, Intramuscu lar, PRN, Starting on Sat09/02/22 at 0613, Until Discontinu ed, JENNIFER, Blood Glucose < or = 70 mg/dL and patient is unable to swallow or has mental changes. [facility] dextrose 50 % in water (D50W) injection 25 mL 2021-11 11:13: 29 Yes 25mL 25 mL, Slow IV Push, PRN, Starting on [place] 09/02/22 at 0613, Until Discontinu ed, JENNIFER, Blood Glucose < or = 70 mg/dL and patient is unable to swallow or has mental status changes. [facility] morpHINE (2 mg/mL) injection 2 mg 2021-11 10:46: 00 09-02 10:54 :00 No 2mg 2 mg, Slow IV Push, ONCE, 1 dose, On [place] 09/02/22 at 0600, Routine [facility] vancomycin (VANCOCIN) 1,000 mg in NaCl 0.9% (NS) 250 mL VIAL-MATE IV piggyback 2021-11 10:30: 00 09-02 10:52 :00 No 1000mg 1,000 mg, IV Piggyback, ONCE, 1 dose, On [place] 09/02/22 at 0530, Administer over 60 Minutes, 250 mL
Reas on for Anti-Infec tive: Documented Infection< br>Documen vern Infection Site: Skin / Soft Tissue
Duration of Therapy: Other (see Comments) [facility] piperacilli n-tazobacta m (ZOSYN) 3.375 g in NaCl 0.9% (NS) 50 mL MINI-BAG 2021-11 09:15: 00 09-02 09:52 :00 No 3.375g 3.375 g, IV Piggyback, ONCE, 1 dose, On [place] 09/02/22 at 0415, Administer over 30 Minutes, 50 mL
Reas on for Anti-Infec tive: Documented Infection< br>Documen vern Infection Site: Skin / Soft Tissue
Duration of Therapy: Other (see Comments) [facility] acetaminoph en (TYLENOL) tablet 1,000 mg 2021-11 05:00: 00 08-30 04:18 :00 No 1000mg 1,000 mg, Oral, ONCE, 1 dose, On [place] 10/27/22 at 0000, JENNIFER [facility] ketorolac (TORADOL) injection 30 mg 2021-11 05:00: 00 08-30 04:20 :00 No 30mg 30 mg, Intramuscu lar, ONCE, 1 dose, On [place] 08/30/22 at 0000, Routine [facility] ondansetron 4 mg disintegrat ing tablet 2021-11 00:00: 00 Yes [id number] 4mg Take 1 tablet by mouth every 8 (eight) hours as needed for Nausea and Vomiting (N/V). [facility] TAKE 1 TABLET BY MOUTH TWICE A DAY 07-30 00:00: 00 No Dose Unknown 07-30 00:00: 00 No TAKE 1 TABLET BY MOUTH TWICE A DAY 06-22 00:00: 00 No 1000 NaCl 0.9% (NS) bolus infusion 1,000 mL 06-21 03:15: 00 06-21 03:31 :00 No 1000mL at 999 mL/hr, 1,000 mL, IV Infusion, ONCE, 1 dose, On Sat06/20/22 at 2215, JENNIFER [facility] clindamycin (CLEOCIN) injection 600 mg 06-21 02:15: 00 06-21 02:43 :00 No 600mg 600 mg, IV Piggyback, ONCE, 1 dose, On Sat06/20/22 at 2115, JENNIFER
Re ason for Anti-Infec tive: Documented Infection< br>Documen vern Infection Site: Skin / Soft Tissue
Duration of Therapy: 7 days
Re stricted use approved by: ED PROVIDER [facility] mupirocin 2 % ointment 06-20 00:00: 00 09-05 00:00 :00 No [id number] Apply to area(s) 3 (three) times daily. [facility] clindamycin 300 mg capsule 06-20 00:00: 00 06-28 04:59 :00 No [id number] 300mg Take 1 capsule by mouth 4 (four) times daily for 7 days. [facility] Novolin N NPH U-100 Insulin isophane 100 unit/mL subcutaneou s susp 03-18 00:00: 00 No unit/mL glipizide 10 mg tablet 03-18 00:00: 00 No 1mg metformin 1,000 mg tablet 03-18 00:00: 00 No 1mg atorvastati n 20 mg tablet 03-18 00:00: 00 No 1mg Dose Unknown 03-18 00:00: 00 No Dose Unknown 03-18 00:00: 00 No Dose Unknown 03-18 00:00: 00 No Dose Unknown 03-15 00:00: 00 No Dose Unknown 03-15 00:00: 00 No Dose Unknown 03-15 00:00: 00 No neomycin-po lymyxin-hyd rocort 3.5 mg-10,000 unit/mL-1 % ear drops,susp 03-14 00:00: 00 No 3mg/mL- unit/mL -% prednisone 20 mg tablet 03-14 00:00: 00 No mg amoxicillin 875 mg tablet 03-14 00:00: 00 No 1mg Dose Unknown 03-14 00:00: 00 No Dose Unknown 03-14 00:00: 00 No Dose Unknown 03-13 00:00: 00 No Dose Unknown 03-13 00:00: 00 No magnesium oxide 420 mg tablet 03-12 00:00: 00 No 1mg metoclopram victorino 5 mg tablet 03-12 00:00: 00 No 1mg Lactobacill us acidophilus 0.5 mg (100 million cell) tablet 03-12 00:00: 00 No 1millio n cell) Dose Unknown 03-12 00:00: 00 No Dose Unknown 03-12 00:00: 00 No Dose Unknown 03-12 00:00: 00 No Dose Unknown 03-12 00:00: 00 No Dose Unknown 03-07 00:00: 00 No Dose Unknown 03-07 00:00: 00 No Dose Unknown 03-07 00:00: 00 No Dose Unknown 03-07 00:00: 00 No Dose Unknown 03-05 00:00: 00 No Dose Unknown 03-05 00:00: 00 No Dose Unknown 03-05 00:00: 00 No Dose Unknown 03-05 00:00: 00 No Dose Unknown 03-03 00:00: 00 No Dose Unknown 03-03 00:00: 00 No Dose Unknown 03-03 00:00: 00 No Dose Unknown 03-03 00:00: 00 No aspirin 81 mg EC tablet 02-23 00:00: 00 03-26 04:59 :00 No [id number] 81mg Take 1 tablet by mouth daily for 30 days. [facility] lactobacill us acidophilus 02-23 00:00: 00 03-26 04:59 :00 No [id number] .5mg Take 1 tablet by mouth daily for 30 days. [facility] KCL 20 mEq tablet 02-23 00:00: 00 03-01 04:59 :00 No [id number] 20meq Take 1 tablet by mouth daily for 5 days. [facility] atorvastati n (LIPITOR) tablet 20 mg 02-22 02:00: 00 Yes 20mg 20 mg, Oral, QHS, First dose on Sat02/21/22 at 2100, Until Discontinu ed, Routine [facility] insulin NPH and regular human 70-30 100 unit/mL (70-30) injection 02-22 00:00: 00 Yes [id number] 10U inject 10 Units under the skin 2 (two) times daily before breakfast and dinner. [facility] magnesium oxide 420 mg Tab 02-22 00:00: 00 12-08 00:00 :00 No [id number] 400mg Take 400 mg by mouth daily. [facility] mupirocin 2 % ointment 02-22 00:00: 00 09-05 00:00 :00 No [id number] Apply to area(s) 2 (two) times daily. [facility] atorvastati n 20 mg tablet 02-22 00:00: 00 03-25 04:59 :00 No [id number] 20mg Take 1 tablet by mouth at bedtime for 30 days. [facility] glipiZIDE 10 mg tablet 02-22 00:00: 00 03-25 04:59 :00 No [id number] 10mg Take 1 tablet by mouth 2 (two) times daily before breakfast and dinner for 30 days. [facility] KCL (KLOR-CON M20) tablet 20 mEq 02-21 14:00: 00 Yes 20meq 20 mEq, Oral, DAILY, First dose on Sat02/21/22 at 0900, Until Discontinu ed, Routine [facility] aspirin EC tablet 81 mg 02-21 14:00: 00 Yes 81mg 81 mg, Oral, DAILY, First dose on Sat02/21/22 at 0900, Until Discontinu ed, Routine [facility] magnesium oxide (MAG-OX 400) tablet 400 mg 02-21 13:00: 00 Yes 400mg 400 mg, Oral, BID, First dose on Sat02/21/22 at 0800, Until Discontinu ed, Routine [facility] insulin NPH and regular human 70-30 (HUMULIN 70-30 U-100 INSULIN) 100 unit/mL (70-30) injection 10 Units 02-21 12:30: 00 Yes 10U 10 Units, Subcutaneo us, BIDAC, First dose on Sat02/21/22 at 0730, Until Discontinu ed, Routine [facility] magnesium sulfate in water 2 gram/50 mL (4 %) infusion 2 g 02-21 12:15: 00 02-21 15:07 :00 No 2g 2 g, IV Piggyback, Administer over 60 Minutes, ONCE, 1 dose, On Sat02/21/22 at 0715, [facility] glip[facility] (GLUCOTROL) tablet 10 mg 02-21 03:45: 00 Yes 10mg 10 mg, Oral, BIDAC, First dose on Sat02/20/22 at 2245, Until Discontinu ed, Routine [facility] Sliding Scale Insulin - Lispro (HumaLOG) + Fsbg Testing 02-21 03:45: 00 Yes Subcutaneo us, TID MEALS+HS, First dose on Sat02/20/22 at 2245, Until Discontinu ed, Routine [facility] mupirocin (BACTROBAN OINT) 2 % skin ointment 02-20 22:00: 00 Yes [facility] enoxaparin (LOVENOX) injection 40 mg 02-20 22:00: 00 Yes 40mg 40 mg, Subcutaneo us, DAILY, First dose on Sat02/20/22 at 1700, Until Discontinu ed, Routine [facility] lactobacill us acidophilus tablet 0.5 mg 02-20 21:45: 00 Yes .5mg 0.5 mg, Oral, DAILY, First dose on Sat02/20/22 at 1645, Until Discontinu ed, Routine [facility] ondansetron (ZOFRAN (PF)) injection 4 mg 02-20 20:22: 47 Yes 4mg 4 mg, Slow IV Push, Q6HPRN, Starting on Sat02/20/22 at 1522, Until Discontinu ed, Routine, Nausea and Vomiting (N/V) [facility] HYDROcodone -acetaminop hen (NORCO 5) 5-325 mg tablet 1 tablet 02-20 20:22: 42 02-22 20:21 :42 No 1{tbl} 1 tablet, Oral, Q6HPRN, Starting on Sat02/20/22 at 1522, Until Sat02/22/22 at 1521, Routine, Pain (scale 4-6) [facility] acetaminoph en (TYLENOL) tablet 650 mg 02-20 20:22: 34 Yes 650mg 650 mg, Oral, Q6HPRN, Starting on Sat02/20/22 at 1522, Until Discontinu ed, Routine, Pain (scale 1-3), Temp > 38.5 C [facility] piperacilli n-tazobacta m (ZOSYN) 3.375 g in NaCl 0.9% (NS) 50 mL MINI-BAG 02-20 20:15: 00 02-20 20:26 :00 No 3.375g 3.375 g, IV Piggyback, ONCE, 1 dose, On Sat02/20/22 at 1515, Administer over 30 Minutes, 50 mL
Reas on for Anti-Infec tive: Empiric Therapy for Suspected Infection< br>Empiric Therapy Site: Skin / Soft tissue
Duration of therapy: 72 hours [facility] NaCl 0.9% (NS) bolus infusion 1,000 mL 02-20 18:30: 00 02-20 17:46 :00 No 1000mL at 999 mL/hr, 1,000 mL, IV Infusion, ONCE, 1 dose, On Sat02/20/22 at 1330, JENNIFER [facility] insulin regular human (HUMULIN R) injection 10 Units 02-20 18:30: 00 02-20 17:39 :00 No 10U 10 Units, Slow IV Push, ONCE, 1 dose, On Sat02/20/22 at 1330, STAT [facility] vancomycin (VANCOCIN) 1,000 mg in NaCl 0.9% (NS) 250 mL VIAL-MATE IV piggyback 02-20 17:45: 00 02-20 18:32 :00 No 15mg/kg 1,000 mg (rounded from 1,054.5 mg = 15 mg/kg ?70.3 kg), IV Piggyback, ONCE, 1 dose, On Sat02/20/22 at 1245, Administer over 60 Minutes, 250 mL
Reas on for Anti-Infec tive: Empiric Therapy for Suspected Infection< br>Empiric Therapy Site: Skin / Soft tissue
Duration of therapy: 72 hours [facility] NaCl 0.9% (NS) bolus infusion 1,250 mL 02-20 17:45: 00 02-20 18:57 :00 No 1250mL at 999 mL/hr, 1,250 mL, IV Infusion, ONCE, 1 dose, [facility]20[facility] 1245[facility] 0.[facility]% (NS) bolus [facility] 1,000 mL 02-20 17:15: 00 02-20 17:05 :00 No 1000mL at 999 mL/hr, 1,000 mL, IV Infusion, ONCE, 1 dose, On Sat02/20/22 at 1215, [facility] mupirocin 2 % topical ointment 06-27 00:00: 00 No 1% clindamycin HCl 300 mg capsule 8 00:00: 00 No 1mg Ciprodex 0.3 %-0.1 % ear drops,suspe nsion 816 00:00: 00 No 4% Bactrim DS 800 mg-160 mg tablet 816 00:00: 00 No 1mg Clindacin ETZ 1 % topical kit 816 00:00: 00 No 1% Dose Unknown 7-03 00:00: 00 No Dose Unknown 7- 00:00: 00 No Dose Unknown 7- 00:00: 00 No mupirocin 2 % topical ointment 6- 00:00: 00 No 1% Bactrim DS 800 mg-160 mg tablet 6- 00:00: 00 No 1mg mupirocin 2 % topical ointment 4- 00:00: 00 No 1% ibuprofen 800 mg tablet 4- 00:00: 00 No 1mg Novolin N NPH U-100 Insulin isophane 100 unit/mL subcutaneou s susp 3-10 00:00: 00 No 10unit/ mL amlodipine 5 mg tablet 3-10 00:00: 00 No 1mg glipizide 10 mg tablet 3-10 00:00: 00 No 1mg metformin 1,000 mg tablet 3 00:00: 00 No 1mg Dose Unknown 3-10 00:00: 00 No gabapentin 300 mg capsule 3-10 00:00: 00 No 1mg triamcinolo ne acetonide 0.1 % topical cream 2-08 00:00: 00 No 1% Caladryl 1 %-8 % lotion 2- 00:00: 00 No 1% hydroxyzine HCl 25 mg tablet 2 00:00: 00 No 1mg Novolin N NPH U-100 Insulin isophane 100 unit/mL subcutaneou s susp - 00:00: 00 No 10unit/ mL amlodipine 5 mg tablet - 00:00: 00 No 1mg glipizide 10 mg tablet - 00:00: 00 No 1mg metformin 1,000 mg tablet 11-14 00:00: 00 No 1mg atorvastati n 20 mg tablet 11-14 00:00: 00 No 1mg gabapentin 300 mg capsule 11-14 00:00: 00 No 1mg amlodipine 5 mg tablet 2019-11 00:00: 00 No 1mg gabapentin 100 mg capsule 2019-11 00:00: 00 No 1mg lisinopriL (PRINIVIL,Z ESTRIL) tablet 5 mg 2019-11 15:00: 00 Yes 5mg 5 mg, Oral, DAILY, First dose (after last modificati on) on 10/15/20 at 0900, Until Discontinu ed, Routine [facility] levofloxaci n 750 mg tablet 2019-11 00:00: 00 No 1mg tramadol 50 mg tablet 2019-11 00:00: 00 No 1mg glipizide 10 mg tablet 2019-11 00:00: 00 No 1mg atorvastati n 20 mg tablet 2019-11 00:00: 00 No 1mg doxycycline hyclate 100 mg capsule 2019-11 00:00: 00 No 1mg collagenase 250 unit/gram ointment 2019-11 00:00: 00 02-22 00:00 :00 No [id number] Apply to affected area(s) daily. [facility] lisinopriL 5 mg tablet 2019-11 00:00: 00 01-14 05:59 :00 No [id number] 5mg Take 1 tablet by mouth daily for 90 days. [facility] aspirin 81 mg chewable tablet 2019-11 00:00: 00 01-14 05:59 :00 No [id number] 81mg Take 1 tablet by mouth daily with breakfast for 90 days. [facility] KCL (KLOR-CON M20) tablet 40 mEq 2019-11 22:30: 00 10-14 22:47 :00 No 40meq 40 mEq, Oral, ONCE, 1 dose, 10/14/20 at 1630, JENNIFER [facility] metFORMIN 1,000 mg tablet 2019-11 21:35: 46 10-14 00:00 :00 No 1000mg Take 1,000 mg by mouth 2 (two) times daily with meals. [facility] glipiZIDE 10 mg tablet 2019-11 21:35: 46 10-14 00:00 :00 No 10mg Take 10 mg by mouth 2 (two) times daily before breakfast and dinner. [facility] atorvastati n (LIPITOR) tablet 20 mg 2019-11 03:00: 00 Yes 20mg 20 mg, Oral, QHS, First dose on [place] 10/13/20 at 2100, Until Discontinu ed, Routine [facility] traMADoL 50 mg tablet 2019-11 00:00: 00 09-05 00:00 :00 No [id number] 50mg Take 1 tablet by mouth 2 (two) times daily as needed for Pain (scale 4-6) or Pain (scale 7-10). Indication s: acute pain [facility] insulin NPH and regular human 70-30 100 unit/mL (70-30) injection 2019-11 00:00: 00 02-22 00:00 :00 No [id number] 15U inject 15 Units under the skin 2 (two) times daily before breakfast and dinner. [employer] brand, relion or whatever brand is cheapest [facility] metFORMIN 1,000 mg tablet 2019-11 00:00: 01-13 05:59 :00 No [id number] 1000mg Take 1 tablet by mouth 2 (two) times daily with meals for 90 days. [facility] glipiZIDE 10 mg tablet 2019-11 00:00: 00 01-13 05:59 :00 No [id number] 10mg Take 1 tablet by mouth 2 (two) times daily before breakfast and dinner for 90 days. [facility] atorvastati n 20 mg tablet 2019-11 00:00: 00 01-13 05:59 :00 No [id number] 20mg Take 1 tablet by mouth at bedtime for 90 days. [facility] lactobacill us acidophilus 25 million cell -100 mg captab 2019-11 00:00: 00 10-29 05:59 :00 No [id number] 1{tbl} Take 1 tablet by mouth 2 (two) times daily for 14 days. [facility] doxycycline hyclate 100 mg capsule 2019-11 00:00: 00 10-25 05:59 :00 No [id number] 100mg Take 1 capsule by mouth every 12 (twelve) hours for 10 days. [facility] levoFLOXaci n 750 mg tablet 2019-11 00:00: 00 10-22 05:59 :00 No [id number] 750mg Take 1 tablet by mouth every 24 (twenty-fo ur) hours for 7 days. [facility] vancomycin (VANCOCIN) 1,000 mg in NaCl 0.9% (NS) 250 mL VIAL-MATE IV piggyback 2019-11 18:00: 00 Yes 1000mg 1,000 mg, IV Piggyback, Q12H ABX, First dose (after last reorder) on Sat10/13/20 at 1200, Until Discontinu ed, 250 mL
Reas on for Anti-Infec tive: Documented Infection< br>Documen vern Infection Site: Skin / Soft Tissue
Duration of Therapy: Other (see Comments) [facility] aspirin chewable tablet 81 mg 2019-11 17:00: 00 Yes 81mg 81 mg, Oral, QAM WITH BREAKFAST, First dose on Sat10/13/20 at 1100, Until Discontinu ed, Routine [facility] lactobacill us acidophilus (ACIDOPHILL US) 25 million cell -100 mg captab 1 tablet 2019-11 17:00: 00 Yes 1{tbl} 1 tablet, Oral, BID, First dose on Sat10/13/20 at 1100, Until Discontinu ed, Routine [facility] enoxaparin (LOVENOX) injection 30 mg 2019-11 15:00: 00 Yes 30mg 30 mg, Subcutaneo us, DAILY, First dose on Sat10/13/20 at 0900, Until Discontinu ed, Routine [facility] zinc sulfate (ORAZINC) capsule 220 mg 2019-11 15:00: 00 Yes 220mg 220 mg, Oral, DAILY, First dose on Sat10/13/20 at 0900, Until Discontinu ed, Routine [facility] ergocalcife rol (vitamin d2) (CALCIFEROL ) capsule 50,000 Units 2019-11 15:00: 00 Yes [id number] 50,000 Units, Oral, QWEEKLY, First dose on Sat10/13/20 at 0900, Until Discontinu ed, Routine [facility] lisinopriL (PRINIVIL,Z ESTRIL) tablet 10 mg 2019-11 15:00: 00 10-14 21:31 :01 No 10mg 10 mg, Oral, DAILY, First dose on Sat10/13/20 at 0900, Until Discontinu ed, Routine [facility] ascorbic acid (vitamin C) (VITAMIN C) tablet 500 mg 2019-11 14:00: 00 Yes 500mg 500 mg, Oral, TID, First dose on Sat10/13/20 at 0800, Until Discontinu ed, Routine [facility] glipiZIDE (GLUCOTROL) tablet 10 mg 2019-11 13:30: 00 Yes 10mg 10 mg, Oral, BIDAC, First dose on Sat10/13/20 at 0730, Until Discontinu ed, Routine [facility] insulin NPH and regular human 70-30 (HUMULIN 70-30 U-100 INSULIN) 100 unit/mL (70-30) injection 15 Units 2019-11 13:30: 00 Yes 15U 15 Units, Subcutaneo us, BIDAC, First dose on Sat10/13/20 at 0730, Until Discontinu ed, [facility] piperacilli n-tazobacta m (ZOSYN) 3.375 g in NaCl 0.9% (NS) 100 mL MINI-BAG 2019-11 05:45: 00 Yes 3.375g 3.375 g, IV Piggyback, Q6H ABX, First dose on Sat10/12/20 at 2345, Until Discontinu ed, 100 mL
Reas on for Anti-Infec tive: Documented Infection< br>Documen vern Infection Site: Skin / Soft Tissue
Duration of Therapy: 14 days [facility] insulin glargine (LANTUS U-100) injection 5 Units 2019-11 04:45: 00 10-14 21:30 :42 No 5U 5 Units, Subcutaneo us, QHS, First dose on Sat10/12/20 at 2245, Until Discontinu ed, Routine [facility] metoprolol (LOPRESSOR) injection 2.5 mg 2019-11 04:37: 33 Yes 2.5mg 2.5 mg, IV Push, Q5MIN PRN, Starting Sat10/12/20 at 2237, Until Discontinu ed, Routine, Hypertensi on >160/100 [facility] Sliding Scale Insulin - Lispro (HumaLOG) + Fsbg Testing 2019-11 03:00: 00 Yes Subcutaneo us, TID MEALS+HS, First dose on Sat10/12/20 at 2100, Until Discontinu ed, Routine [facility] collagenase (SANTYL) ointment 2019-11 01:00: 00 Yes Topical (Apply To Affected Areas), DAILY, First dose on Sat10/12/20 at 1900, Until Discontinu ed, Routine [facility] glucagon (GLUCAGEN DIAGNOSTIC KIT) injection 1 mg 2019-11 00:30: 53 Yes 1mg 1 mg, Intramuscu lar, PRN, Starting Sat10/12/20 at 1830, Until Discontinu ed, JENNIFER, Blood Glucose < or = 70 mg/dL and patient is unable to swallow or has mental changes. [facility] dextrose 50 % in water (D50W) injection 25 mL 2019-11 00:30: 53 Yes 25mL 25 mL, Slow IV Push, PRN, Starting Sat10/12/20 at 1830, Until Discontinu ed, JENNIFER, Blood Glucose < or = 70 mg/dL and patient is unable to swallow or has mental status changes. [facility] iohexol (OMNIPAQUE 350 BULK-100 mL) injection 100 mL 2019-11 00:30: 00 10-13 00:30 :00 No 100mL 100 mL, Intravenou s, ONCE, 1 dose, Sat10/12/20 at 1830, Routine [facility] traMADoL (ULTRAM) tablet 50 mg 2019-11 23:44: 57 10-14 23:43 :57 No 50mg 50 mg, Oral, Q8HPRN, Starting Sat10/12/20 at 1744, Until Sat10/14/20 at 1743, Routine, Pain (scale 4-6) [facility] acetaminoph en (TYLENOL) tablet 650 mg 2019-11 23:44: 54 Yes 650mg 650 mg, Oral, Q6HPRN, Starting Sat10/12/20 at 1744, Until Discontinu ed, Routine, Pain (scale 1-3) [facility] vancomycin (VANCOCIN) 1,000 mg in NaCl 0.9% (NS) 250 mL VIAL-MATE IV piggyback 2019-11 22:45: 00 10-13 00:45 :00 No 1000mg 1,000 mg, IV Piggyback, ONCE, 1 dose, 10/12/20 at 1645, 250 mL
Reas on for Anti-Infec tive: Documented Infection< br>Documen vern Infection Site: Skin / Soft Tissue
Duration of Therapy: Other (see Comments) [facility] naproxen (NAPROSYN) tablet 500 mg 06-25 21:15: 00 06-25 20:27 :00 No 500mg 500 mg, Oral, ONCE, 1 dose, 06/25/20 at 1615, Routine [facility] cephALEXin (KEFLEX) capsule 500 mg 06-25 21:15: 06-25 20:27 :00 No 500mg 500 mg, Oral, ONCE, 1 dose, 06/25/20 at 1615, JENNIFER
Re ason for Anti-Infec tive: Documented Infection< br>Documen vern Infection Site: Skin / Soft Tissue
Duration of Therapy: 10 days [facility] mupirocin 2 % ointment 06-25 00:00: 00 02-22 00:00 :00 No [id number] Apply to area(s) 3 (three) times daily. [facility] naproxen (NAPROSYN) 500 mg tablet 06-25 00:00: 00 10-14 00:00 :00 No [id number] 500mg Take 1 tablet by mouth 2 (two) times daily with meals. [facility] cephALEXin (KEFLEX) 500 mg capsule 06-25 00:00: 00 07-06 04:59 :00 No [id number] 500mg Take 1 capsule by mouth 3 (three) times daily for 10 days. [facility] Novolin N NPH U-100 Insulin isophane 100 unit/mL subcutaneou s susp 03-16 00:00: 00 No 10unit/ mL lisinopril 5 mg tablet 03-16 00:00: 00 No 1mg glipizide 5 mg tablet 03-16 00:00: 00 No 1mg metformin 1,000 mg tablet 03-16 00:00: 00 No 1mg lovastatin 20 mg tablet 03-16 00:00: 00 No 1mg traMADOL 50 mg tablet 03-15 00:00: 00 10-14 00:00 :00 No [id number] 50mg Take 1 tablet by mouth every 6 (six) hours as needed for Pain (scale 4-6). [facility] ibuprofen 600 mg tablet 03-15 00:00: 00 10-14 00:00 :00 No [id number] 600mg Take 1 tablet by mouth every 8 (eight) hours as needed for Pain (scale 4-6). [facility] metFORMIN 1,000 mg tablet 11-28 22:58: 51 Yes 1000mg Take 1,000 mg by mouth 2 (two) times daily with meals. [facility] glipiZIDE 10 mg tablet 11-28 22:58: 51 Yes 10mg Take 10 mg by mouth 2 (two) times daily before breakfast and dinner. [facility] glipizide 10 mg tablet 02-13 00:00: 00 No 1mg Cipro 500 mg tablet 02-10 00:00: 00 No 1mg mupirocin 2 % topical ointment 02-06 00:00: 00 No 1% Cleocin HCl 300 mg capsule 02-06 00:00: 00 No 1mg Bactrim DS 800 mg-160 mg tablet 02-04 00:00: 00 No 1mg Novolin R Regular U-100 Insulin 100 unit/mL injection solution 12-16 00:00: 00 No unit/mL lisinopril 5 mg tablet 12-16 00:00: 00 No 1mg glipizide 5 mg tablet 12-16 00:00: 00 No 1mg metformin 1,000 mg tablet 12-16 00:00: 00 No 1mg lovastatin 20 mg tablet 12-16 00:00: 00 No 1mg lovastatin 20 mg tablet 2016-11 00:00: 00 No 1mg Novolin R 100 unit/mL injection solution 07-31 00:00: 00 No unit/mL glipizide 5 mg tablet 07-27 00:00: 00 No 1mg lisinopril 5 mg tablet 07-27 00:00: 00 No 1mg metformin 1,000 mg tablet 07-27 00:00: 00 No 1mg lovastatin 20 mg tablet 07-27 00:00: 00 No 1mg Novolin 70/30 100 unit/mL subcutaneou s suspension 07-23 00:00: 00 No 1unit/m L (70-30) lisinopril 10 mg tablet 07-23 00:00: 00 No 1mg tramadol 50 mg tablet 07-23 00:00: 00 No 1mg lisinopril 10 mg tablet 06-20 00:00: 00 10-14 00:00 :00 No 10mg Take 1 tablet by mouth daily. [facility] Novolin R 100 unit/mL injection solution 04-23 00:00: 00 No unit/mL Bactrim DS 800 mg-160 mg tablet 04-18 00:00: 00 No 1mg glimepiride 4 mg tablet 2014-11 00:00: 00 No 1mg metformin 1,000 mg tablet 2014-11 00:00: 00 No 1mg Bactrim DS 800 mg-160 mg tablet 2014-11 00:00: 00 No 1mg bupropion HCl 75 mg tablet 2014-11 00:00: 00 No 1mg gabapentin 300 mg capsule 2014-11 00:00: 00 No 1mg gabapentin 300 mg capsule 06-28 00:00: 00 No 1mg glimepiride 4 mg tablet 06-28 00:00: 00 No 1mg metformin 1,000 mg tablet 06-28 00:00: 00 No 1mg bupropion HCl 75 mg tablet 06-16 00:00: 00 No 1mg Wellbutrin 100 mg tablet 06-15 00:00: 00 No 1mg glimepiride 4 mg tablet 06-07 00:00: 00 No 1mg metformin 1,000 mg tablet 05-30 00:00: 00 No 1mg Bentyl 20 mg tablet 05-30 00:00: 00 No 1mg Immunizations Ordered Immunization Name Filled Immunization Name Date Status Comments Source Pneumococcal Polysaccharide, PPSV23 (PNEUMOVAX) 2017-06-20 00:00:00 Completed [facility] Pneumococcal Polysaccharide, PPSV23 (PNEUMOVAX) 2017-06-20 00:00:00 Completed [facility] Pneumococcal Polysaccharide, PPSV23 (PNEUMOVAX) 2017-06-20 00:00:00 Completed [facility] Pneumococcal Polysaccharide, PPSV23 (PNEUMOVAX) 2017-06-20 00:00:00 Completed [facility] Pneumococcal Polysaccharide, PPSV23 (PNEUMOVAX) 2017-06-20 00:00:00 Completed [facility] Pneumococcal Polysaccharide, PPSV23 (PNEUMOVAX) 2017-06-20 00:00:00 Completed [facility] Pneumococcal Polysaccharide, PPSV23 (PNEUMOVAX) 2017-06-20 00:00:00 Completed [facility] Pneumococcal Polysaccharide, PPSV23 (PNEUMOVAX) 2017-06-20 00:00:00 Completed [facility] Pneumococcal Polysaccharide, PPSV23 (PNEUMOVAX) 2017-06-20 00:00:00 Completed [facility] Pneumococcal Polysaccharide, PPSV23 (PNEUMOVAX) 2017-06-20 00:00:00 Completed [facility] Pneumococcal Polysaccharide, PPSV23 (PNEUMOVAX) 2017-06-20 00:00:00 Completed [facility] Pneumococcal Polysaccharide, PPSV23 (PNEUMOVAX) 2017-06-20 00:00:00 Completed [facility] Pneumococcal Polysaccharide, PPSV23 (PNEUMOVAX) 2017-06-20 00:00:00 Completed [facility] Pneumococcal Polysaccharide, PPSV23 (PNEUMOVAX) 2017-06-20 00:00:00 Completed [facility] Pneumococcal Polysaccharide, PPSV23 (PNEUMOVAX) 2017-06-20 00:00:00 Completed [facility] Pneumococcal Polysaccharide, PPSV23 (PNEUMOVAX) 2017-06-20 00:00:00 Completed [facility] Pneumococcal Polysaccharide, PPSV23 (PNEUMOVAX) 2017-06-20 00:00:00 Completed [facility] Pneumococcal Polysaccharide, PPSV23 (PNEUMOVAX) 2017-06-20 00:00:00 Completed [facility] Pneumococcal Polysaccharide, PPSV23 (PNEUMOVAX) 2017-06-20 00:00:00 Completed [facility] Pneumococcal Polysaccharide, PPSV23 (PNEUMOVAX) 2017-06-20 00:00:00 Completed [facility] Pneumococcal Polysaccharide, PPSV23 (PNEUMOVAX) 2017-06-20 00:00:00 Completed [facility] Pneumococcal Polysaccharide, PPSV23 (PNEUMOVAX) 2017-06-20 00:00:00 Completed [facility] Pneumococcal Polysaccharide, PPSV23 (PNEUMOVAX) 2017-06-20 00:00:00 Completed [facility] Pneumococcal Polysaccharide, PPSV23 (PNEUMOVAX) 2017-06-20 00:00:00 Completed [facility] Pneumococcal Polysaccharide, PPSV23 (PNEUMOVAX) 2017-06-20 00:00:00 Completed [facility] Pneumococcal Polysaccharide, PPSV23 (PNEUMOVAX) 2017-06-20 00:00:00 Completed [facility] Pneumococcal Polysaccharide, PPSV23 (PNEUMOVAX) 2017-06-20 00:00:00 Completed [facility] Pneumococcal Polysaccharide, PPSV23 (PNEUMOVAX) 2017-06-20 00:00:00 Completed [facility] Pneumococcal Polysaccharide, PPSV23 (PNEUMOVAX) 2017-06-20 00:00:00 Completed [facility] Pneumococcal Polysaccharide, PPSV23 (PNEUMOVAX) 2017-06-20 00:00:00 Completed [facility] Pneumococcal Polysaccharide, PPSV23 (PNEUMOVAX) 2017-06-20 00:00:00 Completed [facility] Pneumococcal Polysaccharide, PPSV23 (PNEUMOVAX) 2017-06-20 00:00:00 Completed [facility] Pneumococcal Polysaccharide, PPSV23 (PNEUMOVAX) 2017-06-20 00:00:00 Completed [facility] Pneumococcal Polysaccharide, PPSV23 (PNEUMOVAX) 2017-06-20 00:00:00 Completed [facility] Pneumococcal Polysaccharide, PPSV23 (PNEUMOVAX) 2017-06-20 00:00:00 Completed [facility] Pneumococcal Polysaccharide, PPSV23 (PNEUMOVAX) 2017-06-20 00:00:00 Completed [facility] Pneumococcal Polysaccharide, PPSV23 (PNEUMOVAX) 2017-06-20 00:00:00 Completed [facility] Pneumococcal Polysaccharide, PPSV23 (PNEUMOVAX) 2017-06-20 00:00:00 Completed [facility] Pneumococcal Polysaccharide, PPSV23 (PNEUMOVAX) 2017-06-20 00:00:00 Completed [facility] Pneumococcal Polysaccharide, PPSV23 (PNEUMOVAX) 2017-06-20 00:00:00 Completed [facility] Pneumococcal Polysaccharide, PPSV23 (PNEUMOVAX) 2017-06-20 00:00:00 Completed [facility] Pneumococcal Polysaccharide, PPSV23 (PNEUMOVAX) 2017-06-20 00:00:00 Completed [facility] Pneumococcal Polysaccharide, PPSV23 (PNEUMOVAX) 2017-06-20 00:00:00 Completed [facility] Pneumococcal Polysaccharide, PPSV23 (PNEUMOVAX) 2017-06-20 00:00:00 Completed [facility] Pneumococcal Polysaccharide, PPSV23 (PNEUMOVAX) 2017-06-20 00:00:00 Completed [facility] Pneumococcal Polysaccharide, PPSV23 (PNEUMOVAX) 2017-06-20 00:00:00 Completed [facility] Pneumococcal Polysaccharide, PPSV23 (PNEUMOVAX) 2017-06-20 00:00:00 Completed [facility] Pneumococcal Polysaccharide, PPSV23 (PNEUMOVAX) 2017-06-20 00:00:00 Completed [facility] Pneumococcal Polysaccharide, PPSV23 (PNEUMOVAX) 2017-06-20 00:00:00 Completed [facility] Pneumococcal Polysaccharide, PPSV23 (PNEUMOVAX) 2017-06-20 00:00:00 Completed [facility] Pneumococcal Polysaccharide, PPSV23 (PNEUMOVAX) 2017-06-20 00:00:00 Completed [facility] Pneumococcal Polysaccharide, PPSV23 (PNEUMOVAX) 2017-06-20 00:00:00 Completed [facility] Pneumococcal Polysaccharide, PPSV23 (PNEUMOVAX) 2017-06-20 00:00:00 Completed [facility] Pneumococcal Polysaccharide, PPSV23 (PNEUMOVAX) 2017-06-20 00:00:00 Completed [facility] Pneumococcal Polysaccharide, PPSV23 (PNEUMOVAX) 2017-06-20 00:00:00 Completed [facility] Pneumococcal Polysaccharide, PPSV23 (PNEUMOVAX) 2017-06-20 00:00:00 Completed [facility] Pneumococcal Polysaccharide, PPSV23 (PNEUMOVAX) 2017-06-20 00:00:00 Completed [facility] Pneumococcal Polysaccharide, PPSV23 (PNEUMOVAX) 2017-06-20 00:00:00 Completed [facility] Pneumococcal Polysaccharide, PPSV23 (PNEUMOVAX) 2017-06-20 00:00:00 Completed [facility] Pneumococcal Polysaccharide, PPSV23 (PNEUMOVAX) 2017-06-20 00:00:00 Completed [facility] Pneumococcal Polysaccharide, PPSV23 (PNEUMOVAX) 2017-06-20 00:00:00 Completed [facility] Pneumococcal Polysaccharide, PPSV23 (PNEUMOVAX) 2017-06-20 00:00:00 Completed [facility] Pneumococcal Polysaccharide, PPSV23 (PNEUMOVAX) 2017-06-20 00:00:00 Completed [facility] Pneumococcal Polysaccharide, PPSV23 (PNEUMOVAX) 2017-06-20 00:00:00 Completed [facility] Pneumococcal Polysaccharide, PPSV23 (PNEUMOVAX) 2017-06-20 00:00:00 Completed [facility] Pneumococcal Polysaccharide, PPSV23 (PNEUMOVAX) 2017-06-20 00:00:00 Completed [facility] Pneumococcal Polysaccharide, PPSV23 (PNEUMOVAX) 2017-06-20 00:00:00 Completed [facility] Pneumococcal Polysaccharide, PPSV23 (PNEUMOVAX) 2017-06-20 00:00:00 Completed [facility] Pneumococcal Polysaccharide, PPSV23 (PNEUMOVAX) 2017-06-20 00:00:00 Completed [facility] Pneumococcal Polysaccharide, PPSV23 (PNEUMOVAX) 2017-06-20 00:00:00 Completed [facility] Pneumococcal Polysaccharide, PPSV23 (PNEUMOVAX) 2017-06-20 00:00:00 Completed [facility] Pneumococcal Polysaccharide, PPSV23 (PNEUMOVAX) 2017-06-20 00:00:00 Completed [facility] Pneumococcal Polysaccharide, PPSV23 (PNEUMOVAX) 2017-06-20 00:00:00 Completed [facility] Pneumococcal Polysaccharide, PPSV23 (PNEUMOVAX) 2017-06-20 00:00:00 Completed [facility] Pneumococcal Polysaccharide, PPSV23 (PNEUMOVAX) 2017-06-20 00:00:00 Completed [facility] Pneumococcal Polysaccharide, PPSV23 (PNEUMOVAX) 2017-06-20 00:00:00 Completed [facility] Pneumococcal Polysaccharide, PPSV23 (PNEUMOVAX) 2017-06-20 00:00:00 Completed [facility] Pneumococcal Polysaccharide, PPSV23 (PNEUMOVAX) 2017-06-20 00:00:00 Completed [facility] Pneumococcal Polysaccharide, PPSV23 (PNEUMOVAX) 2017-06-20 00:00:00 Completed [facility] Pneumococcal Polysaccharide, PPSV23 (PNEUMOVAX) 2017-06-20 00:00:00 Completed [facility] Pneumococcal Polysaccharide, PPSV23 (PNEUMOVAX) 2017-06-20 00:00:00 Completed [facility] Pneumococcal Polysaccharide, PPSV23 (PNEUMOVAX) 2017-06-20 00:00:00 Completed [facility] Pneumococcal Polysaccharide, PPSV23 (PNEUMOVAX) 2017-06-20 00:00:00 Completed [facility] Pneumococcal Polysaccharide, PPSV23 (PNEUMOVAX) 2017-06-20 00:00:00 Completed [facility] Pneumococcal Polysaccharide, PPSV23 (PNEUMOVAX) 2017-06-20 00:00:00 Completed [facility] Pneumococcal Polysaccharide, PPSV23 (PNEUMOVAX) 2017-06-20 00:00:00 Completed [facility] Pneumococcal Polysaccharide, PPSV23 (PNEUMOVAX) 2017-06-20 00:00:00 Completed [facility] Pneumococcal Polysaccharide, PPSV23 (PNEUMOVAX) 2017-06-20 00:00:00 Completed [facility] Pneumococcal Polysaccharide, PPSV23 (PNEUMOVAX) 2017-06-20 00:00:00 Completed [facility] Pneumococcal Polysaccharide, PPSV23 (PNEUMOVAX) 2017-06-20 00:00:00 Completed [facility] Pneumococcal Polysaccharide, PPSV23 (PNEUMOVAX) 2017-06-20 00:00:00 Completed [facility] Pneumococcal Polysaccharide, PPSV23 (PNEUMOVAX) 2017-06-20 00:00:00 Completed [facility] Pneumococcal Polysaccharide, PPSV23 (PNEUMOVAX) 2017-06-20 00:00:00 Completed [facility] Pneumococcal Polysaccharide, PPSV23 (PNEUMOVAX) 2017-06-20 00:00:00 Completed [facility] Pneumococcal Polysaccharide, PPSV23 (PNEUMOVAX) 2017-06-20 00:00:00 Completed [facility] Pneumococcal Polysaccharide, PPSV23 (PNEUMOVAX) 2017-06-20 00:00:00 Completed [facility] Pneumococcal Polysaccharide, PPSV23 (PNEUMOVAX) 2017-06-20 00:00:00 Completed [facility] Pneumococcal Polysaccharide, PPSV23 (PNEUMOVAX) 2017-06-20 00:00:00 Completed [facility] Pneumococcal Polysaccharide, PPSV23 (PNEUMOVAX) 2017-06-20 00:00:00 Completed [facility] Pneumococcal Polysaccharide, PPSV23 (PNEUMOVAX) 2017-06-20 00:00:00 Completed [facility] Pneumococcal Polysaccharide, PPSV23 (PNEUMOVAX) 2017-06-20 00:00:00 Completed [facility] Pneumococcal Polysaccharide, PPSV23 (PNEUMOVAX) 2017-06-20 00:00:00 Completed [facility] Pneumococcal Polysaccharide, PPSV23 (PNEUMOVAX) 2017-06-20 00:00:00 Completed [facility] Pneumococcal Polysaccharide, PPSV23 (PNEUMOVAX) 2017-06-20 00:00:00 Completed [facility] Pneumococcal Polysaccharide, PPSV23 (PNEUMOVAX) 2017-06-20 00:00:00 Completed [facility] Pneumococcal Polysaccharide, PPSV23 (PNEUMOVAX) 2017-06-20 00:00:00 Completed [facility] Pneumococcal Polysaccharide, PPSV23 (PNEUMOVAX) 2017-06-20 00:00:00 Completed [facility] Pneumococcal Polysaccharide, PPSV23 (PNEUMOVAX) 2017-06-20 00:00:00 Completed [facility] Pneumococcal Polysaccharide, PPSV23 (PNEUMOVAX) 2017-06-20 00:00:00 Completed [facility] Pneumococcal Polysaccharide, PPSV23 (PNEUMOVAX) 2017-06-20 00:00:00 Completed [facility] Pneumococcal Polysaccharide, PPSV23 (PNEUMOVAX) 2017-06-20 00:00:00 Completed [facility] Pneumococcal Polysaccharide, PPSV23 (PNEUMOVAX) 2017-06-20 00:00:00 Completed [facility] Pneumococcal Polysaccharide, PPSV23 (PNEUMOVAX) 2017-06-20 00:00:00 Completed [facility] Pneumococcal Polysaccharide, PPSV23 (PNEUMOVAX) 2017-06-20 00:00:00 Completed [facility] Pneumococcal Polysaccharide, PPSV23 (PNEUMOVAX) 2017-06-20 00:00:00 Completed [facility] Pneumococcal Polysaccharide, PPSV23 (PNEUMOVAX) 2017-06-20 00:00:00 Completed [facility] Pneumococcal Polysaccharide, PPSV23 (PNEUMOVAX) 2017-06-20 00:00:00 Completed [facility] Pneumococcal Polysaccharide, PPSV23 (PNEUMOVAX) 2017-06-20 00:00:00 Completed [facility] Pneumococcal Polysaccharide, PPSV23 (PNEUMOVAX) 2017-06-20 00:00:00 Completed [facility] Pneumococcal Polysaccharide, PPSV23 (PNEUMOVAX) 2017-06-20 00:00:00 Completed [facility] Pneumococcal Polysaccharide, PPSV23 (PNEUMOVAX) 2017-06-20 00:00:00 Completed [facility] Pneumococcal Polysaccharide, PPSV23 (PNEUMOVAX) 2017-06-20 00:00:00 Completed [facility] Pneumococcal Polysaccharide, PPSV23 (PNEUMOVAX) 2017-06-20 00:00:00 Completed [facility] Pneumococcal Polysaccharide, PPSV23 (PNEUMOVAX) 2017-06-20 00:00:00 Completed [facility] Pneumococcal Polysaccharide, PPSV23 (PNEUMOVAX) 2017-06-20 00:00:00 Completed [facility] Pneumococcal Polysaccharide, PPSV23 (PNEUMOVAX) 2017-06-20 00:00:00 Completed [facility] Pneumococcal Polysaccharide, PPSV23 (PNEUMOVAX) 2017-06-20 00:00:00 Completed [facility] Pneumococcal Polysaccharide, PPSV23 (PNEUMOVAX) 2017-06-20 00:00:00 Completed [facility] Pneumococcal Polysaccharide, PPSV23 (PNEUMOVAX) 2017-06-20 00:00:00 Completed [facility] Pneumococcal Polysaccharide, PPSV23 (PNEUMOVAX) 2017-06-20 00:00:00 Completed [facility] Pneumococcal Polysaccharide, PPSV23 (PNEUMOVAX) 2017-06-20 00:00:00 Completed [facility] Pneumococcal Polysaccharide, PPSV23 (PNEUMOVAX) 2017-06-20 00:00:00 Completed [facility] Pneumococcal Polysaccharide, PPSV23 (PNEUMOVAX) 2017-06-20 00:00:00 Completed [facility] Pneumococcal Polysaccharide, PPSV23 (PNEUMOVAX) 2017-06-20 00:00:00 Completed [facility] Pneumococcal Polysaccharide, PPSV23 (PNEUMOVAX) 2017-06-20 00:00:00 Completed [facility] Pneumococcal Polysaccharide, PPSV23 (PNEUMOVAX) 2017-06-20 00:00:00 Completed [facility] Pneumococcal Polysaccharide, PPSV23 (PNEUMOVAX) 2017-06-20 00:00:00 Completed [facility] Pneumococcal Polysaccharide, PPSV23 (PNEUMOVAX) 2017-06-20 00:00:00 Completed [facility] TD, NOS 2017-06-09 00:00:00 Completed [facility] TD, NOS 2017-06-09 00:00:00 Completed [facility] Td 2017-06-09 00:00:00 Completed [facility] TD, NOS 2017-06-09 00:00:00 Completed [facility] TD, NOS 2017-06-09 00:00:00 Completed [facility] TD, NOS 2017-06-09 00:00:00 Completed [facility] TD, NOS 2017-06-09 00:00:00 Completed [facility] TD, NOS 2017-06-09 00:00:00 Completed [facility] TD, NOS 2017-06-09 00:00:00 Completed [facility] TD, NOS 2017-06-09 00:00:00 Completed [facility] TD, NOS 2017-06-09 00:00:00 Completed [facility] Td 2017-06-09 00:00:00 Completed [facility] TD, NOS 2017-06-09 00:00:00 Completed [facility] TD, NOS 2017-06-09 00:00:00 Completed [facility] TD, NOS 2017-06-09 00:00:00 Completed [facility] TD, NOS 2017-06-09 00:00:00 Completed [facility] TD, NOS 2017-06-09 00:00:00 Completed [facility] TD, NOS 2017-06-09 00:00:00 Completed [facility] TD, NOS 2017-06-09 00:00:00 Completed [facility] TD, NOS 2017-06-09 00:00:00 Completed [facility] TD, NOS 2017-06-09 00:00:00 Completed [facility] TD, NOS 2017-06-09 00:00:00 Completed [facility] TD, NOS 2017-06-09 00:00:00 Completed [facility] TD, NOS 2017-06-09 00:00:00 Completed [facility] Td 2017-06-09 00:00:00 Completed [facility] TD, NOS 2017-06-09 00:00:00 Completed [facility] TD, NOS 2017-06-09 00:00:00 Completed [facility] TD, NOS 2017-06-09 00:00:00 Completed [facility] TD, NOS 2017-06-09 00:00:00 Completed [facility] TD, NOS 2017-06-09 00:00:00 Completed [facility] TD, NOS 2017-06-09 00:00:00 Completed [facility] TD, NOS 2017-06-09 00:00:00 Completed [facility] TD, NOS 2017-06-09 00:00:00 Completed [facility] TD, NOS 2017-06-09 00:00:00 Completed [facility] TD, NOS 2017-06-09 00:00:00 Completed [facility] TD, NOS 2017-06-09 00:00:00 Completed [facility] TD, NOS 2017-06-09 00:00:00 Completed [facility] TD, NOS 2017-06-09 00:00:00 Completed [facility] Td 2017-06-09 00:00:00 Completed [facility] TD, NOS 2017-06-09 00:00:00 Completed [facility] TD, NOS 2017-06-09 00:00:00 Completed [facility] TD, NOS 2017-06-09 00:00:00 Completed [facility] TD, NOS 2017-06-09 00:00:00 Completed [facility] TD, NOS 2017-06-09 00:00:00 Completed [facility] TD, NOS 2017-06-09 00:00:00 Completed [facility] TD, NOS 2017-06-09 00:00:00 Completed [facility] TD, NOS 2017-06-09 00:00:00 Completed [facility] TD, NOS 2017-06-09 00:00:00 Completed [facility] TD, NOS 2017-06-09 00:00:00 Completed [facility] TD, NOS 2017-06-09 00:00:00 Completed [facility] TD, NOS 2017-06-09 00:00:00 Completed [facility] TD, NOS 2017-06-09 00:00:00 Completed [facility] TD, NOS 2017-06-09 00:00:00 Completed [facility] TD, NOS 2017-06-09 00:00:00 Completed [facility] TD, NOS 2017-06-09 00:00:00 Completed [facility] TD, NOS 2017-06-09 00:00:00 Completed [facility] TD, NOS 2017-06-09 00:00:00 Completed [facility] TD, NOS 2017-06-09 00:00:00 Completed [facility] TD, NOS 2017-06-09 00:00:00 Completed [facility] TD, NOS 2017-06-09 00:00:00 Completed [facility] TD, NOS 2017-06-09 00:00:00 Completed [facility] TD, NOS 2017-06-09 00:00:00 Completed [facility] TD, NOS 2017-06-09 00:00:00 Completed [facility] TD, NOS 2017-06-09 00:00:00 Completed [facility] TD, NOS 2017-06-09 00:00:00 Completed [facility] TD, NOS 2017-06-09 00:00:00 Completed [facility] TD, NOS 2017-06-09 00:00:00 Completed [facility] TD, NOS 2017-06-09 00:00:00 Completed [facility] TD, NOS 2017-06-09 00:00:00 Completed [facility] TD, NOS 2017-06-09 00:00:00 Completed [facility] TD, NOS 2017-06-09 00:00:00 Completed [facility] TD, NOS 2017-06-09 00:00:00 Completed [facility] TD, NOS 2017-06-09 00:00:00 Completed [facility] TD, NOS 2017-06-09 00:00:00 Completed [facility] TD, NOS 2017-06-09 00:00:00 Completed [facility] TD, NOS 2017-06-09 00:00:00 Completed [facility] Td 2017-06-09 00:00:00 Completed [facility] TD, NOS 2017-06-09 00:00:00 Completed [facility] TD, NOS 2017-06-09 00:00:00 Completed [facility] TD, NOS 2017-06-09 00:00:00 Completed [facility] TD, NOS 2017-06-09 00:00:00 Completed [facility] TD, NOS 2017-06-09 00:00:00 Completed [facility] TD, NOS 2017-06-09 00:00:00 Completed [facility] TD, NOS 2017-06-09 00:00:00 Completed [facility] TD, NOS 2017-06-09 00:00:00 Completed [facility] TD, NOS 2017-06-09 00:00:00 Completed [facility] TD, NOS 2017-06-09 00:00:00 Completed [facility] TD, NOS 2017-06-09 00:00:00 Completed [facility] TD, NOS 2017-06-09 00:00:00 Completed [facility] TD, NOS 2017-06-09 00:00:00 Completed [facility] TD, NOS 2017-06-09 00:00:00 Completed [facility] TD, NOS 2017-06-09 00:00:00 Completed [facility] TD, NOS 2017-06-09 00:00:00 Completed [facility] TD, NOS 2017-06-09 00:00:00 Completed [facility] TD, NOS 2017-06-09 00:00:00 Completed [facility] TD, NOS 2017-06-09 00:00:00 Completed [facility] TD, NOS 2017-06-09 00:00:00 Completed [facility] TD, NOS 2017-06-09 00:00:00 Completed [facility] TD, NOS 2017-06-09 00:00:00 Completed [facility] TD, NOS 2017-06-09 00:00:00 Completed [facility] TD, NOS 2017-06-09 00:00:00 Completed [facility] TD, NOS 2017-06-09 00:00:00 Completed [facility] TD, NOS 2017-06-09 00:00:00 Completed [facility] TD, NOS 2017-06-09 00:00:00 Completed [facility] Td 2017-06-09 00:00:00 Completed [facility] Td 2017-06-09 00:00:00 Completed [facility] Td 2017-06-09 00:00:00 Completed [facility] Td 2017-06-09 00:00:00 Completed [facility] Td 2017-06-09 00:00:00 Completed [facility] Td 2017-06-09 00:00:00 Completed [facility] Td 2017-06-09 00:00:00 Completed [facility] Td 2017-06-09 00:00:00 Completed [facility] Td 2017-06-09 00:00:00 Completed [facility] Td 2017-06-09 00:00:00 Completed [facility] Td 2017-06-09 00:00:00 Completed [facility] Td 2017-06-09 00:00:00 Completed [facility] Td 2017-06-09 00:00:00 Completed [facility] Td 2017-06-09 00:00:00 Completed [facility] Td 2017-06-09 00:00:00 Completed [facility] Td 2017-06-09 00:00:00 Completed [facility] Td 2017-06-09 00:00:00 Completed [facility] Td 2017-06-09 00:00:00 Completed [facility] Td 2017-06-09 00:00:00 Completed [facility] Td 2017-06-09 00:00:00 Completed [facility] Td 2017-06-09 00:00:00 Completed [facility] Td 2017-06-09 00:00:00 Completed [facility] Td 2017-06-09 00:00:00 Completed [facility] Td 2017-06-09 00:00:00 Completed [facility] TD, NOS 2017-06-09 00:00:00 Completed [facility] TD, NOS 2017-06-09 00:00:00 Completed [facility] TD, NOS 2017-06-09 00:00:00 Completed [facility] TD, NOS 2017-06-09 00:00:00 Completed [facility] TD, NOS 2017-06-09 00:00:00 Completed [facility] TD, NOS 2017-06-09 00:00:00 Completed [facility] TD, NOS 2017-06-09 00:00:00 Completed [facility] TD, NOS 2017-06-09 00:00:00 Completed [facility] TD, NOS 2017-06-09 00:00:00 Completed [facility] TD, NOS 2017-06-09 00:00:00 Completed [facility] TD, NOS Unknown Completed [facility] Pneumococcal Polysaccharide, PPSV23 (PNEUMOVAX) Unknown Completed [facility] TD, NOS Unknown Completed [facility] Pneumococcal Polysaccharide, PPSV23 (PNEUMOVAX) Unknown Completed [facility] TD, NOS Unknown Completed [facility] Pneumococcal Polysaccharide, PPSV23 (PNEUMOVAX) Unknown Completed [facility] TD, NOS Unknown Completed [facility] Pneumococcal Polysaccharide, PPSV23 (PNEUMOVAX) Unknown Completed [facility] TD, NOS Unknown Completed [facility] Pneumococcal Polysaccharide, PPSV23 (PNEUMOVAX) Unknown Completed [facility] TD, NOS Unknown Completed [facility] Pneumococcal Polysaccharide, PPSV23 (PNEUMOVAX) Unknown Completed [facility] TD, NOS Unknown Completed [facility] Pneumococcal Polysaccharide, PPSV23 (PNEUMOVAX) Unknown Completed [facility] TD, NOS Unknown Completed [facility] Pneumococcal Polysaccharide, PPSV23 (PNEUMOVAX) Unknown Completed [facility] TD, NOS Unknown Completed [facility] Pneumococcal Polysaccharide, PPSV23 (PNEUMOVAX) Unknown Completed [facility] TD, NOS Unknown Completed [facility] Pneumococcal Polysaccharide, PPSV23 (PNEUMOVAX) Unknown Completed [facility] TD, NOS Unknown Completed [facility] Pneumococcal Polysaccharide, PPSV23 (PNEUMOVAX) Unknown Completed [facility] TD, NOS Unknown Completed [facility] Pneumococcal Polysaccharide, PPSV23 (PNEUMOVAX) Unknown Completed [facility] TD, NOS Unknown Completed [facility] Pneumococcal Polysaccharide, PPSV23 (PNEUMOVAX) Unknown Completed [facility] TD, NOS Unknown Completed [facility] Pneumococcal Polysaccharide, PPSV23 (PNEUMOVAX) Unknown Completed [facility] TD, NOS Unknown Completed [facility] Pneumococcal Polysaccharide, PPSV23 (PNEUMOVAX) Unknown Completed [facility] TD, NOS Unknown Completed [facility] Pneumococcal Polysaccharide, PPSV23 (PNEUMOVAX) Unknown Completed [facility] TD, NOS Unknown Completed [facility] Pneumococcal Polysaccharide, PPSV23 (PNEUMOVAX) Unknown Completed [facility] TD, NOS Unknown Completed [facility] Pneumococcal Polysaccharide, PPSV23 (PNEUMOVAX) Unknown Completed [facility] TD, NOS Unknown Completed [facility] Pneumococcal Polysaccharide, PPSV23 (PNEUMOVAX) Unknown Completed [facility] TD, NOS Unknown Completed [facility] Pneumococcal Polysaccharide, PPSV23 (PNEUMOVAX) Unknown Completed [facility] TD, NOS Unknown Completed [facility] Pneumococcal Polysaccharide, PPSV23 (PNEUMOVAX) Unknown Completed [facility] TD, NOS Unknown Completed [facility] Pneumococcal Polysaccharide, PPSV23 (PNEUMOVAX) Unknown Completed [facility] TD, NOS Unknown Completed [facility] Pneumococcal Polysaccharide, PPSV23 (PNEUMOVAX) Unknown Completed [facility] TD, NOS Unknown Completed [facility] Pneumococcal Polysaccharide, PPSV23 (PNEUMOVAX) Unknown Completed [facility] TD, NOS Unknown Completed [facility] Pneumococcal Polysaccharide, PPSV23 (PNEUMOVAX) Unknown Completed [facility] TD, NOS Unknown Completed [facility] Pneumococcal Polysaccharide, PPSV23 (PNEUMOVAX) Unknown Completed [facility] TD, NOS Unknown Completed [facility] Pneumococcal Polysaccharide, PPSV23 (PNEUMOVAX) Unknown Completed [facility] TD, NOS Unknown Completed [facility] Pneumococcal Polysaccharide, PPSV23 (PNEUMOVAX) Unknown Completed [facility] TD, NOS Unknown Completed [facility] Pneumococcal Polysaccharide, PPSV23 (PNEUMOVAX) Unknown Completed [facility] TD, NOS Unknown Completed [facility] Pneumococcal Polysaccharide, PPSV23 (PNEUMOVAX) Unknown Completed [facility] TD, NOS Unknown Completed [facility] Pneumococcal Polysaccharide, PPSV23 (PNEUMOVAX) Unknown Completed [facility] TD, NOS Unknown Completed [facility] Pneumococcal Polysaccharide, PPSV23 (PNEUMOVAX) Unknown Completed [facility] TD, NOS Unknown Completed [facility] Pneumococcal Polysaccharide, PPSV23 (PNEUMOVAX) Unknown Completed [facility] TD, NOS Unknown Completed [facility] Pneumococcal Polysaccharide, PPSV23 (PNEUMOVAX) Unknown Completed [facility] TD, NOS Unknown Completed [facility] Pneumococcal Polysaccharide, PPSV23 (PNEUMOVAX) Unknown Completed [facility] TD, NOS Unknown Completed [facility] Pneumococcal Polysaccharide, PPSV23 (PNEUMOVAX) Unknown Completed [facility] TD, NOS Unknown Completed [facility] Pneumococcal Polysaccharide, PPSV23 (PNEUMOVAX) Unknown Completed [facility] TD, NOS Unknown Completed [facility] Pneumococcal Polysaccharide, PPSV23 (PNEUMOVAX) Unknown Completed [facility] TD, NOS Unknown Completed [facility] Pneumococcal Polysaccharide, PPSV23 (PNEUMOVAX) Unknown Completed [facility] TD, NOS Unknown Completed [facility] Pneumococcal Polysaccharide, PPSV23 (PNEUMOVAX) Unknown Completed [facility] TD, NOS Unknown Completed [facility] Pneumococcal Polysaccharide, PPSV23 (PNEUMOVAX) Unknown Completed [facility] TD, NOS Unknown Completed [facility] Pneumococcal Polysaccharide, PPSV23 (PNEUMOVAX) Unknown Completed [facility] TD, NOS Unknown Completed [facility] Pneumococcal Polysaccharide, PPSV23 (PNEUMOVAX) Unknown Completed [facility] TD, NOS Unknown Completed [facility] Pneumococcal Polysaccharide, PPSV23 (PNEUMOVAX) Unknown Completed [facility] TD, NOS Unknown Completed [facility] Pneumococcal Polysaccharide, PPSV23 (PNEUMOVAX) Unknown Completed [facility] TD, NOS Unknown Completed [facility] Pneumococcal Polysaccharide, PPSV23 (PNEUMOVAX) Unknown Completed [facility] TD, NOS Unknown Completed [facility] Pneumococcal Polysaccharide, PPSV23 (PNEUMOVAX) Unknown Completed [facility] TD, NOS Unknown Completed [facility] Pneumococcal Polysaccharide, PPSV23 (PNEUMOVAX) Unknown Completed [facility] TD, NOS Unknown Completed [facility] Pneumococcal Polysaccharide, PPSV23 (PNEUMOVAX) Unknown Completed [facility] Vital Signs Vital Name Observation Time Observation Value Comments S ource Systolic blood pressure 2023-09-17 17:57:24 153 mm[Hg] [facility] Diastolic blood pressure 2023-09-17 17:57:24 88 mm[Hg] [facility] Heart rate 2023-09-17 17:57:24 80 /min [facility] Body temperature 2023-09-17 17:57:24 36.5 Angle [facility] Respiratory rate 2023-09-17 17:57:24 18 /min [facility] Oxygen saturation in Arterial blood by Pulse oximetry 2023-09-17 17:57:24 100 /min [facility] Body height 2023-09-17 15:52:00 165.1 cm [facility] Body weight 2023-09-17 15:52:00 72.576 kg [facility] BMI 2023-09-17 15:52:00 26.63 kg/m2 [facility] Systolic blood pressure 2023-06-28 15:46:00 93 mm[Hg] [facility] Diastolic blood pressure 2023-06-28 15:46:00 65 mm[Hg] [facility] Heart rate 2023-06-28 15:46:00 85 /min [facility] Body temperature 2023-06-28 15:46:00 36.5 Angle [facility] Respiratory rate 2023-06-28 15:46:00 18 /min [facility] Body weight 2023-06-28 15:46:00 72.576 kg [facility] BMI 2023-06-28 15:46:00 23.63 kg/m2 [facility] Oxygen saturation in Arterial blood by Pulse oximetry 2023-06-28 15:46:00 99 /min [facility] Systolic blood pressure 2023-05-19 17:41:00 102 mm[Hg] [facility] Diastolic blood pressure 2023-05-19 17:41:00 69 mm[Hg] [facility] Heart rate 2023-05-19 17:41:00 96 /min [facility] Body temperature 2023-05-19 17:41:00 36.72 Angle [facility] Respiratory rate 2023-05-19 17:41:00 18 /min [facility] Body height 2023-05-19 17:41:00 175.3 cm [facility] Body weight 2023-05-19 17:41:00 71.668 kg [facility] BMI 2023-05-19 17:41:00 23.33 kg/m2 [facility] Oxygen saturation in Arterial blood by Pulse oximetry 2023-05-19 17:41:00 100 /min [facility] Body temperature 2023-02-14 14:55:00 36.28 Angle [facility] Body height 2023-02-14 14:55:00 165.1 cm [facility] Body weight 2023-02-14 14:55:00 71.668 [facility] 2023-02-14 14:55:00 26.29 kg/m2 [facility] Systolic blood pressure 2023-01-25 16:39:00 96 mm[Hg] [facility] Diastolic blood pressure 2023-01-25 16:39:00 56 mm[Hg] [facility] Heart rate 2023-01-25 16:39:00 63 /min [facility] Body temperature 2023-01-25 16:37:00 35.89 Angle [facility] Respiratory rate 2023-01-25 16:37:00 18 /min [facility] Oxygen saturation in Arterial blood by Pulse oximetry 2023-01-25 16:37:00 95 /min [facility] Body height 2023-01-25 02:08:00 165.1 cm [facility] Body weight 2023-01-25 02:08:00 71.668 kg [facility] BMI 2023-01-25 02:08:00 26.29 kg/m2 [facility] Systolic blood pressure 2023-01-21 12:50:00 196 mm[Hg] [facility] Diastolic blood pressure 2023-01-21 12:50:00 103 mm[Hg] [facility] Heart rate 2023-01-21 12:50:00 89 /min [facility] Body temperature 2023-01-21 12:50:00 36.28 Angle [facility] Respiratory rate 2023-01-21 12:50:00 18 /min [facility] Body height 2023-01-21 12:50:00 165.1 cm [facility] Body weight 2023-01-21 12:50:00 72.576 kg [facility] BMI 2023-01-21 12:50:00 26.63 kg/m2 [facility] Oxygen saturation in Arterial blood by Pulse oximetry 2023-01-21 12:50:00 99 /min [facility] Systolic blood pressure 2022-12-20 13:23:00 136 mm[Hg] [facility] Diastolic blood pressure 2022-12-20 13:23:00 70 mm[Hg] [facility] Heart rate 2022-12-20 13:23:00 68 /min [facility] Body temperature 2022-12-20 13:23:00 36.61 Angle [facility] Respiratory rate 2022-12-20 13:23:00 20 /min [facility] Oxygen saturation in Arterial blood by Pulse oximetry 2022-12-20 13:23:00 95 /min [facility] Body height 2022-12-18 21:13:00 165.1 cm [facility] Body weight 2022-12-18 21:13:00 72.576 kg [facility] BMI 2022-12-18 21:13:00 26.63 kg/m2 [facility] Systolic blood pressure 2022-12-13 17:42:00 148 mm[Hg] [facility] Diastolic blood pressure 2022-12-13 17:42:00 83 mm[Hg] [facility] Heart rate 2022-12-13 17:42:00 69 /min [facility] Body temperature 2022-12-13 17:42:00 36.67 Angle [facility] Respiratory rate 2022-12-13 17:42:00 18 /min [facility] Oxygen saturation in Arterial blood by Pulse oximetry 2022-12-13 17:42:00 98 /min [facility] Body height 2022-12-08 18:07:00 165.1 cm [facility] Body weight 2022-12-08 18:07:00 72.576 kg [facility] BMI 2022-12-08 18:07:00 26.63 kg/m2 [facility] Heart rate 2022-12-13 00:52:00 74 /min [facility] Respiratory rate 2022-12-13 00:52:00 15 /min [facility] Oxygen saturation in Arterial blood by Pulse oximetry 2022-12-13 00:52:00 96 /min [facility] Systolic blood pressure 2022-12-13 00:49:00 121 mm[Hg] [facility] Diastolic blood pressure 2022-12-13 00:49:00 70 mm[Hg] [facility] Body temperature 2022-12-12 21:17:00 36.61 Angle [facility] Body height 2022-12-08 18:07:00 165.1 cm [facility] Body weight 2022-12-08 18:07:00 72.576 kg [facility] BMI 2022-12-08 18:07:00 26.63 kg/m2 [facility] Systolic blood pressure 2022-12-02 00:00:00 145 mm[Hg] [facility] Diastolic blood pressure 2022-12-02 00:00:00 82 mm[Hg] [facility] Heart rate 2022-12-02 00:00:00 74 /min [facility] Respiratory rate 2022-12-02 00:00:00 16 /min [facility] Oxygen saturation in Arterial blood by Pulse oximetry 2022-12-02 00:00:00 97 /min [facility] Body temperature 2022-12-01 21:08:00 37.72 Angle [facility] Body height 2022-12-01 21:08:00 165.1 cm [facility] Body weight 2022-12-01 21:08:00 72.576 kg [facility] BMI 2022-12-01 21:08:00 26.63 kg/m2 [facility] Systolic blood pressure 2022-09-06 16:30:00 114 mm[Hg] [facility] Diastolic blood pressure 2022-09-06 16:30:00 69 mm[Hg] [facility] Heart rate 2022-09-06 16:30:00 75 /min [facility] Body temperature 2022-09-06 16:30:00 36.39 Angle [facility] Oxygen saturation in Arterial blood by Pulse oximetry 2022-09-06 16:30:00 95 /min [facility] Respiratory rate 2022-09-06 10:00:00 23 /min [facility] Body weight 2022-09-06 10:00:00 71.986 kg [facility] BMI 2022-09-06 10:00:00 26.41 kg/m2 [facility] Body height 2022-09-02 10:25:00 165.1 cm [facility] Systolic blood pressure 2022-08-30 03:47:00 101 mm[Hg] [facility] Diastolic blood pressure 2022-08-30 03:47:00 70 mm[Hg] [facility] Heart rate 2022-08-30 03:47:00 93 /min [facility] Body temperature 2022-08-30 03:47:00 37.39 Angle [facility] Respiratory rate 2022-08-30 03:47:00 18 /min [facility] Body height 2022-08-30 03:47:00 165.1 cm [facility] Body weight 2022-08-30 03:47:00 72.576 kg [facility] BMI 2022-08-30 03:47:00 26.63 kg/m2 [facility] Oxygen saturation in Arterial blood by Pulse oximetry 2022-08-30 03:47:00 99 /min [facility] Systolic blood pressure 2022-06-21 03:00:00 150 mm[Hg] [facility] Diastolic blood pressure 2022-06-21 03:00:00 77 mm[Hg] [facility] Heart rate 2022-06-21 03:00:00 72 /min [facility] Respiratory rate 2022-06-21 03:00:00 19 /min [facility] Oxygen saturation in Arterial blood by Pulse oximetry 2022-06-21 03:00:00 95 /min [facility] Body temperature 2022-06-20 23:51:00 36.67 Angle [facility] Body weight 2022-06-20 23:51:00 72.576 kg [facility] BMI 2022-06-20 23:51:00 26.63 kg/m2 [facility] Systolic blood pressure 2022-02-22 16:07:00 127 mm[Hg] [facility] Diastolic blood pressure 2022-02-22 16:07:00 82 mm[Hg] [facility] Heart rate 2022-02-22 16:07:00 79 /min [facility] Body temperature 2022-02-22 16:07:00 36.11 Angle [facility] Respiratory rate 2022-02-22 16:07:00 18 /min [facility] Oxygen saturation in Arterial blood by Pulse oximetry 2022-02-22 16:07:00 98 /min [facility] Body weight 2022-02-22 08:44:00 72.984 kg [facility] BMI 2022-02-22 08:44:00 26.78 kg/m2 [facility] Body height 2022-02-20 20:15:00 165.1 cm [facility] Systolic blood pressure 2020-10-14 22:00:00 125 mm[Hg] [facility] Diastolic blood pressure 2020-10-14 22:00:00 71 mm[Hg] [facility] Heart rate 2020-10-14 22:00:00 77 /min [facility] Body temperature 2020-10-14 22:00:00 36.28 Angle [facility] Respiratory rate 2020-10-14 22:00:00 20 /min [facility] Oxygen saturation in Arterial blood by Pulse oximetry 2020-10-14 22:00:00 99 /min [facility] Body weight 2020-10-13 09:11:00 70.489 kg [facility] BMI 2020-10-13 09:11:00 25.86 kg/m2 [facility] Body height 2020-10-12 20:25:00 165.1 cm [facility] Systolic blood pressure 2020-10-14 22:00:00 125 mm[Hg] [facility] Diastolic blood pressure 2020-10-14 22:00:00 71 mm[Hg] [facility] Heart rate 2020-10-14 22:00:00 77 /min [facility] Body temperature 2020-10-14 22:00:00 36.28 Angle [facility] Respiratory rate 2020-10-14 22:00:00 20 /min [facility] Oxygen saturation in Arterial blood by Pulse oximetry 2020-10-14 22:00:00 99 /min [facility] Body weight 2020-10-13 09:11:00 70.489 kg [facility] BMI 2020-10-13 09:11:00 25.86 kg/m2 [facility] Body height 2020-10-12 20:25:00 165.1 cm [facility] Systolic blood pressure 2020-06-25 19:12:00 104 mm[Hg] [facility] Diastolic blood pressure 2020-06-25 19:12:00 91 mm[Hg] [facility] Heart rate 2020-06-25 19:12:00 85 /min [facility] Body temperature 2020-06-25 19:12:00 36.06 Angle [facility] Respiratory rate 2020-06-25 19:12:00 20 /min [facility] Body weight 2020-06-25 19:12:00 74.844 kg [facility] BMI 2020-06-25 19:12:00 27.46 kg/m2 [facility] Oxygen saturation in Arterial blood by Pulse oximetry 2020-06-25 19:12:00 99 /min [facility] Systolic blood pressure 2020-06-25 19:12:00 104 mm[Hg] [facility] Diastolic blood pressure 2020-06-25 19:12:00 91 mm[Hg] [facility] Heart rate 2020-06-25 19:12:00 85 /min [facility] Body temperature 2020-06-25 19:12:00 36.06 Angle [facility] Respiratory rate 2020-06-25 19:12:00 20 /min [facility] Body weight 2020-06-25 19:12:00 74.844 kg [facility] BMI 2020-06-25 19:12:00 27.46 kg/m2 [facility] Oxygen saturation in Arterial blood by Pulse oximetry 2020-06-25 19:12:00 99 /min [facility] BP Systolic 2022-07-30 16:39:00 107 mm[Hg] BP Diastolic 2022-07-30 16:39:00 72 mm[Hg] Weight Measured 2022-07-30 16:39:00 163.00 pounds Height Measured 2022-07-30 16:39:00 66.50 inches Body Temperature 2022-07-30 16:39:00 97.80 degrees Heart Rate 2022-07-30 16:39:00 95.00 /min Respiratory Rate 2022-07-30 16:39:00 25.00 /min BP Systolic 2022-06-22 17:27:00 106 mm[Hg] BP Diastolic 2022-06-22 17:27:00 74 mm[Hg] Weight Measured 2022-06-22 17:27:00 165.00 pounds Height Measured 2022-06-22 17:27:00 66.50 inches Body Temperature 2022-06-22 17:27:00 98.10 degrees Heart Rate 2022-06-22 17:27:00 84.00 /min Respiratory Rate 2022-06-22 17:27:00 16.00 /min BP Systolic 2022-03-27 15:27:00 115 mm[Hg] BP Diastolic 2022-03-27 15:27:00 66 mm[Hg] Weight Measured 2022-03-27 15:27:00 170.00 pounds Height Measured 2022-03-27 15:27:00 66.50 inches Body Temperature 2022-03-27 15:27:00 98.10 degrees Heart Rate 2022-03-27 15:27:00 96.00 /min Respiratory Rate 2022-03-27 15:27:00 18.00 /min BP Systolic 2022-03-14 16:04:00 126 mm[Hg] BP Diastolic 2022-03-14 16:04:00 81 mm[Hg] Weight Measured 2022-03-14 16:04:00 172.80 pounds Height Measured 2022-03-14 16:04:00 66.50 inches Body Temperature 2022-03-14 16:04:00 98.20 degrees Heart Rate 2022-03-14 16:04:00 81.00 /min Respiratory Rate 2022-03-14 16:04:00 18.00 /min BP Systolic 2022-03-12 17:26:00 118 mm[Hg] BP Diastolic 2022-03-12 17:26:00 74 mm[Hg] Weight Measured 2022-03-12 17:26:00 169.80 pounds Height Measured 2022-03-12 17:26:00 66.50 inches Body Temperature 2022-03-12 17:26:00 98.20 degrees Heart Rate 2022-03-12 17:26:00 82.00 /min Respiratory Rate 2022-03-12 17:26:00 19.00 /min BP Systolic 2021-06-27 17:04:00 102 mm[Hg] BP Diastolic 2021-06-27 17:04:00 68 mm[Hg] Weight Measured 2021-06-27 17:04:00 162.00 pounds Height Measured 2021-06-27 17:04:00 66.50 inches Body Temperature 2021-06-27 17:04:00 98.40 degrees Heart Rate 2021-06-27 17:04:00 98.00 /min Respiratory Rate 2021-06-27 17:04:00 BP Systolic 2021-06-19 10:18:00 69 mm[Hg] BP Diastolic 2021-06-19 10:18:00 47 mm[Hg] Weight Measured 2021-06-19 10:18:00 163.20 pounds Height Measured 2021-06-19 10:18:00 66.50 inches Body Temperature 2021-06-19 10:18:00 98.20 degrees Heart Rate 2021-06-19 10:18:00 94.00 /min Respiratory Rate 2021-06-19 10:18:00 BP Systolic 2021-05-04 16:40:00 62 mm[Hg] BP Diastolic 2021-05-04 16:40:00 37 mm[Hg] Weight Measured 2021-05-04 16:40:00 167.40 pounds Height Measured 2021-05-04 16:40:00 66.50 inches Body Temperature 2021-05-04 16:40:00 98.00 degrees Heart Rate 2021-05-04 16:40:00 106.00 /min Respiratory Rate 2021-05-04 16:40:00 18.00 /min BP Systolic 2021-05-04 16:31:00 62 mm[Hg] BP Diastolic 2021-05-04 16:31:00 37 mm[Hg] Weight Measured 2021-05-04 16:31:00 167.40 pounds Height Measured 2021-05-04 16:31:00 66.50 inches Body Temperature 2021-05-04 16:31:00 98.00 degrees Heart Rate 2021-05-04 16:31:00 106.00 /min Respiratory Rate 2021-05-04 16:31:00 18.00 /min BP Systolic 2021-04-04 16:05:00 85 mm[Hg] BP Diastolic 2021-04-04 16:05:00 56 mm[Hg] Weight Measured 2021-04-04 16:05:00 168.60 pounds Height Measured 2021-04-04 16:05:00 66.50 inches Body Temperature 2021-04-04 16:05:00 98.10 degrees Heart Rate 2021-04-04 16:05:00 97.00 /min Respiratory Rate 2021-04-04 16:05:00 16.00 /min Procedures Procedure Date / Time Performed Performing Clinician Source POCT GLUCOSE (AUTOMATED) 2023-09-17 17:33:00 Zahraa Springer [facility] ASSIGNMENT OF BENEFITS 2023-09-17 16:40:07 Docto r Unassigned, [employer] [facility] CONSENT/REFUSAL FOR DIAGNOSIS AND TREATMENT 2023-09-17 15:24:49 Doctor Unassigned, [employer] [facility] ASSIGNMENT OF BENEFITS 2023-06-28 17:27:44 Docto r Unassigned, [employer] [facility] CONSENT/REFUSAL FOR DIAGNOSIS AND TREATMENT 2023-06-28 15:26:13 Doctor Unassigned, [employer] [facility] ASSIGNMENT OF BENEFITS 2023-05-19 18:58:31 Docto r Unassigned, [employer] [facility] CONSENT/REFUSAL FOR DIAGNOSIS AND TREATMENT 2023-05-19 17:32:17 Doctor Unassigned, [employer] [facility] ASSIGNMENT OF BENEFITS 2023-02-14 14:43:47 Docto r Unassigned, [employer] [facility] POCT GLUCOSE (AUTOMATED) 2023-01-25 16:40:00 Elieser Winslow [facility] POCT GLUCOSE (AUTOMATED) 2023-01-25 12:45:00 Elieser Winslow [facility] MAGNESIUM 2023-01-25 10:12:00 [facility] BASIC METABOLIC PANEL (NA, K, CL, CO2, GLUCOSE, BUN, CREATININE, CA) 2023-01-25 10:12:00 Kristian Castillo [facility] CBC WITH DIFF 2023-01-25 10:12:00 Kristian Castillo [facility] POCT GLUCOSE (AUTOMATED) 2023-01-25 02:09:00 Elieser Winslow [facility] POCT GLUCOSE (AUTOMATED) 2023-01-24 22:19:00 Irwin Dunlap [facility] SEDIMENTATION RATE 2023-01-24 17:49:00 Tamera Alcala [facility] POCT GLUCOSE (AUTOMATED) 2023-01-24 16:44:00 Irwin Dunlap [facility] POCT GLUCOSE (AUTOMATED) 2023-01-24 12:33:00 Irwin Dunlap [facility] POCT GLUCOSE (AUTOMATED) 2023-01-24 01:57:00 Irwin Dunlap [facility] POCT GLUCOSE (AUTOMATED) 2023-01-23 21:34:00 Irwin Dunlap [facility] POCT GLUCOSE (AUTOMATED) 2023-01-23 16:49:00 Irwin Dunlap [facility] MR BRAIN WO CONTRAST 2023-01-23 15:00:00 Olga Fuentes [facility] MR ORBIT W WO CONTRAST 2023-01-23 15:00:00 GadJordan martinez [facility] POCT GLUCOSE (AUTOMATED) 2023-01-23 12:03:00 Irwin Dunlap [facility] BASIC METABOLIC PANEL (NA, K, CL, CO2, GLUCOSE, BUN, CREATININE, CA) 2023-01-23 09:05:00 Cari [facility] LIPID PANEL (95012)(TOTAL CHOLESTEROL, TRIGLYCERIDES, HDL) 2023-01-23 09:05:00 Cari [facility] CBC WITH DIFF 2023-01-23 09:05:00 Tamera [facility] GLYCOSYLATED HEMOGLOBIN (A1C) 2023-01-23 09:05:00 Cari [facility] POCT GLUCOSE (AUTOMATED) 2023-01-23 01:59:00 Irwin Dunlap [facility] CT ANGIOGRAM HEAD 2023-01-22 22:45:49 [facility] ANGIOGRAM NECK 2023-01-22 22:45:49 Olena Fuentes [facility] POCT GLUCOSE (AUTOMATED) 2023-01-22 22:14:00 [facility] (TTE) LIMITED W/ CONTRAST 2023-01-22 20:18:00 Cari [facility] POCT GLUCOSE (AUTOMATED) 2023-01-22 16:12:00 [facility]) 2023-01-22 16:12:00 [facility] (AUTOMATED) 2023-01-22 12:13:00 Fabi [facility] POCT GLUCOSE (AUTOMATED) 2023-01-22 12:13:00 [facility] ([facility]OMATED) 2023-01-22 01:30:00 [facility] ([facility]OMATED) 2023-01-22 01:30:00 Irwin Dunlap [facility] POCT GLUCOSE (AUTOMATED) 2023-01-21 22:07:00 [facility] ([facility]OMATED) 2023-01-21 22:07:00 [facility] RAVI MULTI LEVEL - BY VASCULAR LAB 2023-01-21 19:26:00 Martha Sharp [facility] RAVI MULTI LEVEL - BY VASCULAR LAB 2023-01-21 19:26:00 Payton Martha [facility] POCT GLUCOSE (AUTOMATED) 2023-01-21 17:11:00 Irwin Dunlap [facility] POCT GLUCOSE (AUTOMATED) 2023-01-21 17:11:00 Irwin Dunlap [facility] XR FOOT <3 VW RIGHT 2023-01-21 14:38:14 Letitia Sharp [facility] XR FOOT <3 VW RIGHT 2023-01-21 14:38:14 Letitia Sharp [facility] TISSUE CULTURE(AEROBIC/ANAEROB IC) 2023-01-21 13:50:00 Payton [facility] TISSUE CULTURE(AEROBIC/ANAEROB IC) 2023-01-21 13:50:00 Payton [facility] SURGICAL PATHOLOGY EXAM 2023-01-21 13:50:00 Jeanette Sharp [facility] TISSUE CULTURE(AEROBIC/ANAEROB IC) 2023-01-21 13:49:00 Payton [facility] TISSUE CULTURE(AEROBIC/ANAEROB IC) 2023-01-21 13:49:00 Payton [facility] INCISION AND DRAINAGE OF ABSCESS 2023-01-21 13:02:00 Payton [facility] FOOT DEBRIDEMENT 2023-01-21 13:02:00 Payton [facility] INCISION AND DRAINAGE OF ABSCESS 2023-01-21 13:02:00 Payton [facility] FOOT DEBRIDEMENT 2023-01-21 13:02:00 Payton [facility] POCT GLUCOSE (AUTOMATED) 2023-01-21 12:14:00 Mary [facility] POCT GLUCOSE (AUTOMATED) 2023-01-21 12:14:00 [facility] PHOSPHORUS 2023-01-21 09:33:00 Fermin [facility] MAGNESIUM 2023-01-21 09:33:00 Mary [place] BASIC METABOLIC PANEL (NA, K, CL, CO2, GLUCOSE, BUN, CREATININE, CA) 2023-01-21 09:33:00 [facility] CBC WITH DIFF 2023-01-21 09:33:00 Mary [facility] PHOSPHORUS 2023-01-21 09:33:00 Mary [place] MAGNESIUM 2023-01-21 09:33:00 Mary [place] BASIC METABOLIC PANEL (NA, K, CL, CO2, GLUCOSE, BUN, CREATININE, CA) 2023-01-21 09:33:00 [facility] CBC WITH DIFF 2023-01-21 09:33:00 Mary [facility] POCT GLUCOSE (AUTOMATED) 2023-01-21 01:36:00 [facility] POCT GLUCOSE (AUTOMATED) 2023-01-21 01:36:00 [facility] POCT GLUCOSE (AUTOMATED) 2023-01-20 21:40:00 [facility] POCT GLUCOSE (AUTOMATED) 2023-01-20 21:40:00 [facility] CLOSTRIDIUM DIFFICILE TOXIN 2023-01-20 19:19:00 Anyi [facility] CLOSTRIDIUM DIFFICILE TOXIN 2023-01-20 19:19:00 Anyi [facility] POCT GLUCOSE (AUTOMATED) 2023-01-20 16:54:00 [facility] POCT GLUCOSE (AUTOMATED) 2023-01-20 16:54:00 [facility] POCT GLUCOSE (AUTOMATED) 2023-01-20 12:45:00 [facility] POCT GLUCOSE (AUTOMATED) 2023-01-20 12:45:00 [facility] PHOSPHORUS 2023-01-20 08:58:00 Mary [place] MAGNESIUM 2023-01-20 08:58:00 Mary [place] BASIC METABOLIC PANEL (NA, K, CL, CO2, GLUCOSE, BUN, CREATININE, CA) 2023-01-20 08:58:00 [facility] CBC WITH DIFF 2023-01-20 08:58:00 Mary [facility] PHOSPHORUS 2023-01-20 08:58:00 Mary [place] MAGNESIUM 2023-01-20 08:58:00 Mary [place] BASIC METABOLIC PANEL (NA, K, CL, CO2, GLUCOSE, BUN, CREATININE, CA) 2023-01-20 08:58:00 [facility] CBC WITH DIFF 2023-01-20 08:58:00 Mary [facility] POCT GLUCOSE (AUTOMATED) 2023-01-20 01:49:00 Minugnela [facility] POCT GLUCOSE (AUTOMATED) 2023-01-20 01:49:00 [facility] POCT GLUCOSE (AUTOMATED) 2023-01-19 22:55:00 Mougnela [facility] POCT GLUCOSE (AUTOMATED) 2023-01-19 22:55:00 [facility] MR FOOT RIGHT W WO CONTRAST 2023-01-19 22:43:37 Mougournorma [facility] MR FOOT RIGHT W WO CONTRAST 2023-01-19 22:43:37 Mougnela [facility] POCT GLUCOSE (AUTOMATED) 2023-01-19 16:44:00 Janelle Hill [facility] POCT GLUCOSE (AUTOMATED) 2023-01-19 16:44:00 Janelle Hill [facility] POCT GLUCOSE (AUTOMATED) 2023-01-19 12:39:00 Janelle Hill [facility] POCT GLUCOSE (AUTOMATED) 2023-01-19 12:39:00 Janelle Hill [facility] CBC WITH DIFF 2023-01-19 09:07:00 Fermin Hernandez [facility] CBC WITH DIFF 2023-01-19 09:07:00 Mary [facility] PHOSPHORUS 2023-01-19 09:06:00 MoFermin schroeder [facility] MAGNESIUM 2023-01-19 09:06:00 Moalexournorma [place] BASIC METABOLIC PANEL (NA, K, CL, CO2, GLUCOSE, BUN, CREATININE, CA) 2023-01-19 09:06:00 [facility] PHOSPHORUS 2023-01-19 09:06:00 Fermin [facility] MAGNESIUM 2023-01-19 09:06:00 Mary [place] BASIC METABOLIC PANEL (NA, K, CL, CO2, GLUCOSE, BUN, CREATININE, CA) 2023-01-19 09:06:00 [facility] POCT GLUCOSE (AUTOMATED) 2023-01-19 01:21:00 Janelle Hill [facility] POCT GLUCOSE (AUTOMATED) 2023-01-19 01:21:00 Janelle Hill [facility] POCT GLUCOSE (AUTOMATED) 2023-01-18 21:49:00 Janelle Hill [facility] POCT GLUCOSE (AUTOMATED) 2023-01-18 21:49:00 Janelle Hill [facility] POCT GLUCOSE (AUTOMATED) 2023-01-18 17:37:00 Janelle Hill [facility] POCT GLUCOSE (AUTOMATED) 2023-01-18 17:37:00 Janelle Hill [facility] POCT GLUCOSE (AUTOMATED) 2023-01-18 13:11:00 Janelle Hill [facility] POCT GLUCOSE (AUTOMATED) 2023-01-18 13:11:00 Janelle Hill [facility] C-REACTIVE PROTEIN 2023-01-18 10:22:00 Haseeb Hinton [facility] SEDIMENTATION RATE 2023-01-18 10:22:00 Haseeb Hinton [facility] C-REACTIVE PROTEIN 2023-01-18 10:22:00 Haseeb Hinton [facility] SEDIMENTATION RATE 2023-01-18 10:22:00 Haseeb Hinton [facility] POCT GLUCOSE (AUTOMATED) 2023-01-18 02:13:00 Janelle Hill [facility] POCT GLUCOSE (AUTOMATED) 2023-01-18 02:13:00 Janelle Hill [facility] POCT GLUCOSE (AUTOMATED) 2023-01-17 22:22:00 Janelle Hill [facility] POCT GLUCOSE (AUTOMATED) 2023-01-17 22:22:00 Janelle Hill [facility] MRSA / MSSA SCREEN BY PCRAGA 2023-01-17 20:10:00 Tobias Ward [facility] MRSA / MSSA SCREEN BY PCR, AGA 2023-01-17 20:10:00 Luiza Esquivel [facility] POCT GLUCOSE (AUTOMATED) 2023-01-17 16:45:00 Janelle Hill [facility] POCT GLUCOSE (AUTOMATED) 2023-01-17 16:45:00 Janelle Hill [facility] POCT GLUCOSE (AUTOMATED) 2023-01-17 13:30:00 Janelle Hill [facility] POCT GLUCOSE (AUTOMATED) 2023-01-17 13:30:00 Janelle Hill [facility] BASIC METABOLIC PANEL (NA, K, CL, CO2, GLUCOSE, BUN, CREATININE, CA) 2023-01-17 10:15:00 Mirlande Hinton [facility] CBC WITH DIFF 2023-01-17 10:15:00 Narcisa Hinton [facility] BASIC METABOLIC PANEL (NA, K, CL, CO2, GLUCOSE, BUN, CREATININE, CA) 2023-01-17 10:15:00 Mirlande Hinton [facility] CBC WITH DIFF 2023-01-17 10:15:00 Narcisa Hinton [facility] POCT GLUCOSE (AUTOMATED) 2023-01-17 05:08:00 Levi Brown [facility] POCT GLUCOSE (AUTOMATED) 2023-01-17 05:08:00 Levi Brown [facility] XR FOOT <3 VW RIGHT 2023-01-17 02:11:00 Levi Brown [facility] XR FOOT <3 VW RIGHT 2023-01-17 02:11:00 Levi Brown [facility] BLOOD CULTURE SCREEN 2023-01-17 01:51:00 Thomas Brown i [facility] BASIC METABOLIC PANEL (NA, K, CL, CO2, GLUCOSE, BUN, CREATININE, CA) 2023-01-17 01:51:00 Levi Brown [facility] CBC WITH DIFF 2023-01-17 01:51:00 [facility] BLOOD CULTURE SCREEN 2023-01-17 01:51:00 Thomas Brown i [facility] BASIC METABOLIC PANEL (NA, K, CL, CO2, GLUCOSE, BUN, CREATININE, CA) 2023-01-17 01:51:00 Levi Brown [facility] CBC WITH DIFF 2023-01-17 01:51:00 Levi [facility] NOTICE OF PRIVACY PRACTICES 2023-01-17 00:20:01 Doctor Unassigned, [facility] NOTICE OF PRIVACY PRACTICES 2023-01-17 00:20:01 Doctor Unassigned, [facility] CONSENT/REFUSAL FOR DIAGNOSIS AND TREATMENT 2023-01-17 00:19:22 Doctor Unassigned, [facility] HOSPITAL ADMISSION 2023-01-16 05:01:00 Doctor Un assigned, [facility] HOSPITAL ADMISSION 2023-01-16 05:01:00 Doctor Un assigned, [facility] POCT GLUCOSE (AUTOMATED) 2022-12-20 13:25:00 Christopher [facility] COMP. METABOLIC PANEL ([id number]) 2022-12-20 10:19:00 Christopher [facility] POCT GLUCOSE (AUTOMATED) 2022-12-20 02:58:00 Christopher [facility] POCT GLUCOSE (AUTOMATED) 2022-12-19 21:14:00 Christopher [facility] POCT GLUCOSE (AUTOMATED) 2022-12-19 17:21:00 Christopher [facility] POCT GLUCOSE (AUTOMATED) 2022-12-19 15:24:00 Christopher [facility] POCT GLUCOSE (AUTOMATED) 2022-12-19 13:48:00 Christopher [facility] POCT GLUCOSE (AUTOMATED) 2022-12-19 06:41:00 Christopher [facility] XR FOOT <3 VW RIGHT 2022-12-18 23:34:55 Jhonny Murray [facility] COMP. METABOLIC PANEL ([id number]) 2022-12-18 22:59:00 Barak Murray [facility] SEDIMENTATION RATE 2022-12-18 22:59:00 Singer Barak [facility] CBC WITH DIFF 2022-12-18 22:59:00 Barak Murray [facility] CONSENT/REFUSAL FOR DIAGNOSIS AND TREATMENT 2022-12-18 21:00:21 Doctor Unassigned, [facility] HOSPITAL ADMISSION 2022-12-18 06:01:00 Doctor Un assigned, [facility] POCT GLUCOSE (AUTOMATED) 2022-12-13 17:42:00 Trisha Foster [facility] POCT GLUCOSE (AUTOMATED) 2022-12-13 17:42:00 Cristian [facility] POCT GLUCOSE (AUTOMATED) 2022-12-13 13:46:00 Cristian [facility] POCT GLUCOSE (AUTOMATED) 2022-12-13 13:46:00 Cristian [facility] POCT GLUCOSE (AUTOMATED) 2022-12-13 03:19:00 Cristian [facility] POCT GLUCOSE (AUTOMATED) 2022-12-13 03:19:00 Cristian [facility] ASPIRATE OR ABSCESS CULTURE(AEROBIC/ANAEROB IC) 2022-12-13 00:26:00 Mendoza Lovett [facility] ASPIRATE OR ABSCESS CULTURE(AEROBIC/ANAEROB IC) 2022-12-13 00:26:00 Mendoza Lovett [facility] INCISION AND DRAINAGE LOWER EXTREMITY 2022-12-12 23:58:00 Mendoza Lovett [facility] INCISION AND DRAINAGE LOWER EXTREMITY 2022-12-12 23:58:00 Mendoza Lovett [facility] POCT GLUCOSE (AUTOMATED) 2022-12-12 18:12:00 Chapito [facility] POCT GLUCOSE (AUTOMATED) 2022-12-12 18:12:00 Chapito [facility] POCT GLUCOSE (AUTOMATED) 2022-12-12 13:41:00 Chapito [facility] POCT GLUCOSE (AUTOMATED) 2022-12-12 13:41:00 Chapito [facility] POCT GLUCOSE (AUTOMATED) 2022-12-12 02:36:00 Chapito [facility] POCT GLUCOSE (AUTOMATED) 2022-12-12 02:36:00 Chapito [facility] POCT GLUCOSE (AUTOMATED) 2022-12-11 22:46:00 Chapito [facility] POCT GLUCOSE (AUTOMATED) 2022-12-11 22:46:00 Chapito [facility] POCT GLUCOSE (AUTOMATED) 2022-12-11 17:56:00 Chapito [facility] POCT GLUCOSE (AUTOMATED) 2022-12-11 17:56:00 Kevin Uriarte [facility] POCT GLUCOSE (AUTOMATED) 2022-12-11 13:48:00 Chapito [facility] POCT GLUCOSE (AUTOMATED) 2022-12-11 13:48:00 Chapito [facility] BASIC METABOLIC PANEL (NA, K, CL, CO2, GLUCOSE, BUN, CREATININE, CA) 2022-12-11 09:27:00 Trisha Foster [facility] BASIC METABOLIC PANEL (NA, K, CL, CO2, GLUCOSE, BUN, CREATININE, CA) 2022-12-11 09:27:00 Trisha Foster [facility] POCT GLUCOSE (AUTOMATED) 2022-12-11 03:02:00 Chapito [facility] POCT GLUCOSE (AUTOMATED) 2022-12-11 03:02:00 Chapito [facility] MR FOOT RIGHT W WO CONTRAST 2022-12-11 02:57:00 Munir [facility] MR FOOT RIGHT W WO CONTRAST 2022-12-11 02:57:00 Munir [facility] POCT GLUCOSE (AUTOMATED) 2022-12-10 23:20:00 Chapito [facility] POCT GLUCOSE (AUTOMATED) 2022-12-10 23:20:00 Chapito [facility] POCT GLUCOSE (AUTOMATED) 2022-12-10 21:34:00 Chapito [facility] POCT GLUCOSE (AUTOMATED) 2022-12-10 21:34:00 Chapito [facility] TRANSTHORACIC ECHO (TTE) COMPLETE 2022-12-10 19:49:[address] [facility] TRANSTHORACIC ECHO (TTE) COMPLETE 2022-12-10 19:49:00 Hao Craft I [facility] POCT GLUCOSE (AUTOMATED) 2022-12-10 18:42:00 Chapito [facility] POCT GLUCOSE (AUTOMATED) 2022-12-10 18:42:00 Chapito [facility] MRSA / MSSA SCREEN BY GAA LYLES 2022-12-10 16:18:00 Munir [facility] WOUND CULTURE 2022-12-10 16:18:00 Munir [facility] MRSA / MSSA SCREEN BY PCRAGA 2022-12-10 16:18:00 Munir [facility] WOUND CULTURE 2022-12-10 16:18:00 Munir [facility] BLOOD CULTURE SCREEN 2022-12-10 10:41:00 Hao Craft I [facility] VANCOMYCIN TROUGH 2022-12-10 10:41:00 Jeramy Jacobs [facility] SEDIMENTATION RATE 2022-12-10 10:41:00 Hao Craft I [facility] GLYCOSYLATED HEMOGLOBIN (A1C) 2022-12-10 10:41:00 Rachell Jacobsshua [facility] BLOOD CULTURE SCREEN 2022-12-10 10:41:00 Hao Craft I [facility] VANCOMYCIN TROUGH 2022-12-10 10:41:00 Jeramy Jacobs [facility] SEDIMENTATION RATE 2022-12-10 10:41:00 Hao Craft I [facility] GLYCOSYLATED HEMOGLOBIN (A1C) 2022-12-10 10:41:00 Jeramy Jacobs [facility] POCT GLUCOSE (AUTOMATED) 2022-12-10 02:32:00 Chapito [facility] POCT GLUCOSE (AUTOMATED) 2022-12-10 02:32:00 Chapito [facility] POCT GLUCOSE (AUTOMATED) 2022-12-10 00:00:00 Chapito [facility] POCT GLUCOSE (AUTOMATED) 2022-12-10 00:00:00 Chapito [facility] POCT GLUCOSE (AUTOMATED) 2022-12-09 22:57:00 Chapito [facility] POCT GLUCOSE (AUTOMATED) 2022-12-09 22:57:00 Chapito [facility] POCT GLUCOSE (AUTOMATED) 2022-12-09 17:42:00 Chapito [facility] POCT GLUCOSE (AUTOMATED) 2022-12-09 17:42:00 Chapito [facility] POCT GLUCOSE (AUTOMATED) 2022-12-09 14:03:00 Chapito [facility] POCT GLUCOSE (AUTOMATED) 2022-12-09 14:03:00 Chapito [facility] C-REACTIVE PROTEIN 2022-12-09 10:40:00 VenancioJonathanam I U [facility] BASIC METABOLIC PANEL (NA, K, CL, CO2, GLUCOSE, BUN, CREATININE, CA) 2022-12-09 10:40:00 [facility] 2022-12-09 10:40:00 Rachell Jacobsshua [facility] C-REACTIVE PROTEIN 2022-12-09 10:40:00 Hao Craft I U [facility] BASIC METABOLIC PANEL (NA, K, CL, CO2, GLUCOSE, BUN, CREATININE, CA) 2022-12-09 10:40:00 [facility] 2022-12-09 10:40:00 Rachell Jacobsshua [facility] POCT GLUCOSE (AUTOMATED) 2022-12-09 02:31:00 Chapito [facility] POCT GLUCOSE (AUTOMATED) 2022-12-09 02:31:00 Chapito [facility] POCT GLUCOSE (AUTOMATED) 2022-12-08 23:09:00 Chapito [facility] POCT GLUCOSE (AUTOMATED) 2022-12-08 23:09:00 Chapito [facility] BASIC METABOLIC PANEL (NA, K, CL, CO2, GLUCOSE, BUN, CREATININE, CA) 2022-12-08 21:20:00 Chapito [facility] BASIC METABOLIC PANEL (NA, K, CL, CO2, GLUCOSE, BUN, CREATININE, CA) 2022-12-08 21:20:00 Chapito [facility] XR FOOT 3+ VW RIGHT 2022-12-08 19:56:10 Chapito [facility] XR FOOT 3+ VW RIGHT 2022-12-08 19:56:10 Kevin Uriarte [facility] BLOOD CULTURE SCREEN 2022-12-08 19:47:00 Kevin Uriarte [facility] CBC WITH DIFF 2022-12-08 19:47:00 [facility]22-12-08 19:47:00 Kevin Uriarte [facility] BLOOD CULTURE WORKUP 2022-12-08 19:47:00 Kevin Uriarte [facility] GRAM POSITIVE BLOOD PATHOGENS DNA PROBE-ANAEROBIC 2022-12-08 19:47:00 Kevin Uriarte [facility] BLOOD CULTURE SCREEN 2022-12-08 19:47:00 Kevin Uriarte [facility] CBC WITH DIFF 2022-12-08 19:47:00 [facility] 2022-12-08 19:47:00 Kevin Uriarte [facility] BLOOD CULTURE WORKUP 2022-12-08 19:47:00 Kevin Uriarte [facility] GRAM POSITIVE BLOOD PATHOGENS DNA PROBE-ANAEROBIC 2022-12-08 19:47:00 Kevin Uriarte [facility] POCT GLUCOSE (AUTOMATED) 2022-12-08 19:39:00 Kevin Uriarte [facility] POCT GLUCOSE (AUTOMATED) 2022-12-08 19:39:00 Kevin Uriarte [facility] HOSPITAL ADMISSION 2022-12-08 06:01:00 Doctor Un assigned, [facility] HOSPITAL ADMISSION 2022-12-08 06:01:00 Doctor Un assigned, [facility] CT ABDOMEN PELVIS W CONTRAST 2022-12-01 23:53:53 Gil Mason [facility] LACTIC ACID WHOLE BLOOD 2022-12-01 23:00:00 Do elton Mason [facility] XR CHEST 1 VW 2022-12-01 22:43:57 Gil Mason [facility] URINALYSIS 2022-12-01 21:41:00 Gil Mason [facility] COVID-19 (ID NOW RAPID TESTING) 2022-12-01 21:40:00 Gil Mason [facility] URINE DRUG (IMMUNOASSAY) - COMPREHENSIVE DRUG SCREEN W/O REFLEX 2022-12-01 21:40:00 Gil Mason [facility] COMP. METABOLIC PANEL ([id number]) 2022-12-01 21:40:00 Gil Mason [facility] ETHANOL 2022-12-01 21:40:00 iGl Mason [facility] CBC WITH DIFF 2022-12-01 21:40:00 Gil Mason [facility] RAPID INFLUENZA A/B 2022-12-01 21:40:00 Pk Mason [facility] CONSENT/REFUSAL FOR DIAGNOSIS AND TREATMENT 2022-12-01 21:00:14 Doctor Unassigned, [facility] FOR FREE TREATMENT FORM 2022-10-17 14:25:07 Doctor Unassigned, [facility] POCT GLUCOSE (AUTOMATED) 2022-09-06 16:27:00 Levi Brown [facility] POCT GLUCOSE (AUTOMATED) 2022-09-06 12:23:00 Levi Brown [facility] POCT GLUCOSE (AUTOMATED) 2022-09-05 21:23:00 Levi Brown [facility] POCT GLUCOSE (AUTOMATED) 2022-09-05 16:17:00 Levi Brown [facility] POCT GLUCOSE (AUTOMATED) 2022-09-05 12:37:00 Levi Brown [facility] CBC WITHOUT DIFF 2022-09-05 11:29:00 Kori Ruff [facility] BASIC METABOLIC PANEL (NA, K, CL, CO2, GLUCOSE, BUN, CREATININE, CA) 2022-09-05 09:05:00 Kori Ruff [facility] POCT GLUCOSE (AUTOMATED) 2022-09-05 01:07:00 Levi Brown [facility] POCT GLUCOSE (AUTOMATED) 2022-09-04 21:23:00 Levi Brown [facility] POCT GLUCOSE (AUTOMATED) 2022-09-04 17:03:00 Levi Brown [facility] MR FOOT RIGHT W WO CONTRAST 2022-09-04 16:51:00 Jai Lindsey [facility] POCT GLUCOSE (AUTOMATED) 2022-09-04 12:47:00 Levi Brown [facility] BASIC METABOLIC PANEL (NA, K, CL, CO2, GLUCOSE, BUN, CREATININE, CA) 2022-09-04 10:05:00 Darryl Peoples [facility] CBC WITH DIFF 2022-09-04 10:05:00 Darryl Peoples [facility] POCT GLUCOSE (AUTOMATED) 2022-09-04 07:21[facility] 2022-09-04 01:25:00 Levi Brown [facility] VANCOMYCIN TROUGH 2022-09-03 22:32:00 [facility] 2022-09-03 21:52:00 [facility] PROTHROMBIN TIME / INR 2022-09-03 18:05:00 Andres Rowe [facility] POCT GLUCOSE (AUTOMATED) 2022-09-03 16:42:00 [facility] ART[facility] LEG RIGHT - BY VASCULAR LAB 2022-09-03 14:17:00 Jai [facility] PO[facility] GLUCOSE (AUTOMATED) 2022-09-03 13:15:00 Levi Brown [facility] MAGNESIUM 2022-09-03 11:41:00 [facility] COMP. METABOLIC PANEL (84627) 2022-09-03 11:41:00 Akhil Rowe [facility] CBC WITH DIFF 2022-09-03 11:41:00 [facility] POCT GLUCOSE (AUTOMATED) 2022-09-03 07:37:00 Levi Brown [facility] POCT GLUCOSE (AUTOMATED) 2022-09-03 01:34:00 Levi Brown [facility] POCT GLUCOSE (AUTOMATED) 2022-09-02 21:15:00 Levi Borwn [facility] POCT GLUCOSE (AUTOMATED) 2022-09-02 17:39:00 Levi Brown [facility] POCT GLUCOSE (AUTOMATED) 2022-09-02 16:50:00 Levi Brown [facility] POCT GLUCOSE (AUTOMATED) 2022-09-02 16:48:00 Levi Brown [facility] POCT GLUCOSE (AUTOMATED) 2022-09-02 16:25:00 Levi Brown [facility] ASPIRATE OR ABSCESS CULTURE(AEROBIC/ANAEROB IC) 2022-09-02 15:21:00 Jai Lindsey [facility] WOUND/ASPIRATE OR ABSCESS CULTURE 2022-09-02 15:21:00 Jai Lindsey [facility] POCT GLUCOSE (AUTOMATED) 2022-09-02 12:42:00 Levi Brown [facility] CT FOOT RIGHT W CONTRAST 2022-09-02 12:16:50 Akhil Rowe [facility] XR FOOT 3+ VW RIGHT 2022-09-02 08:15:00 Levi Brown [facility] BLOOD CULTURE SCREEN 2022-09-02 07:59:00 Thomas Brown i [facility] BLOOD CULTURE SCREEN 2022-09-02 07:58:00 Thomas Brown i [facility] PHOSPHORUS 2022-09-02 07:58:00 Akhil Rowe [facility] URIC ACID 2022-09-02 07:58:00 Akhil Rowe [facility] MAGNESIUM 2022-09-02 07:58:00 Akhil Rowe [facility] FERRITIN SERUM 2022-09-02 07:58:00 Akhil Rowe [facility] C-REACTIVE PROTEIN 2022-09-02 07:58:00 Akhil Rowe [facility] COMP. METABOLIC PANEL (94917) 2022-09-02 07:58:00 Levi Brown [facility] LIPID PANEL (61331)(TOTAL CHOLESTEROL, TRIGLYCERIDES, HDL) 2022-09-02 07:58:00 Akhil Rowe [facility] IRON PANEL 2022-09-02 07:58:00 Akhil Rowe [facility] SEDIMENTATION RATE 2022-09-02 07:58:00 Akhil Rowe [facility] CBC WITH DIFF 2022-09-02 07:58:00 Levi [facility] GLYCOSYLATED HEMOGLOBIN (A1C) 2022-09-02 07:58:00 Jory blake [facility] N-TERMINAL PRO-BNP 2022-09-02 07:58:00 [facility] PROCALCITONIN 2022-09-02 07:58:00 Akhil Rowe [facility] CONSENT/REFUSAL FOR DIAGNOSIS AND TREATMENT 2022-09-02 06:56:02 Doctor Unassigned, [employer] [facility] POCT GLUCOSE (AUTOMATED) 2022-08-30 04:25:00 Ligia Lee [facility] NOTICE OF PRIVACY PRACTICES 2022-08-30 03:41:26 Doctor Unassigned, [employer] [facility] CONSENT/REFUSAL FOR DIAGNOSIS AND TREATMENT 2022-08-30 03:41:03 Doctor Unassigned, [employer] [facility] XR FOOT 3+ VW RIGHT 2022-06-21 01:25:37 Jose Polanco [facility] LIPASE 2022-06-21 00:36:00 Aravind Polanco U [facility] COMP. METABOLIC PANEL (93763) 2022-06-21 00:36:00 Aravind Polanco [facility] CBC WITH DIFF 2022-06-21 00:36:00 Aravind Polanco [facility] GLYCOSYLATED HEMOGLOBIN (A1C) 2022-06-21 00:36:00 Aravind Polanco [facility] COVID-19 (ID NOW RAPID TESTING) 2022-06-21 00:36:00 Aravind Polanco [facility] NOTICE OF PRIVACY PRACTICES 2022-06-20 23:42:28 Doctor Unassigned, [employer] [facility] CONSENT/REFUSAL FOR DIAGNOSIS AND TREATMENT 2022-06-20 23:41:57 Doctor Unassigned, [employer] [facility] POCT GLUCOSE (AUTOMATED) 2022-02-22 16:46:00 Akhil Rowe [facility] POCT GLUCOSE (AUTOMATED) 2022-02-22 12:41:00 Akhil Rowe [facility] BASIC METABOLIC PANEL (NA, K, CL, CO2, GLUCOSE, BUN, CREATININE, CA) 2022-02-22 09:17:00 Temo Kim [facility] CBC WITH DIFF 2022-02-22 09:17:00 [facility] 2022-02-22 02:28:00 Akhil Rowe [facility] POCT GLUCOSE (AUTOMATED) 2022-02-21 21:55:00 Akhil Rowe [facility] POCT GLUCOSE (AUTOMATED) 2022-02-21 16:50:00 Darryl Peoples [facility] POCT GLUCOSE (AUTOMATED) 2022-02-21 13:09:00 Darryl Peoples [facility] PROTHROMBIN TIME / INR 2022-02-21 08:26:00 Andres Rowe [facility] VITAMIN D, 25-OH 2022-02-21 08:26:00 [facility] 2022-02-21 08:26:00 [facility] 2022-02-21 08:25:00 Akhil Rowe [facility] URIC ACID 2022-02-21 08:25:00 [facility] MAGNESIUM 2022-02-21 08:25:00 Akhil Rowekenzie [facility] COMP. METABOLIC PANEL (85943) 2022-02-21 08:25:00 Jory blake [facility] LIPID PANEL (57320)(TOTAL CHOLESTEROL, TRIGLYCERIDES, HDL) 2022-02-21 08:25:00 Akhil Rowe [facility] CBC WITH DIFF 2022-02-21 08:25:00 Akhil Rowe [facility] N-TERMINAL PRO-BNP 2022-02-21 08:25:00 Akhil Rowe [facility] POCT GLUCOSE (AUTOMATED) 2022-02-21 07:56:00 [facility]) 2022-02-21 04:08:00 Richelle [facility] POCT GLUCOSE (AUTOMATED) 2022-02-20 22:05:00 [facility] 2022-02-20 19:10:00 Vazquez Roach [facility] POCT GLUCOSE (AUTOMATED) 2022-02-20 18:57:00 Vazquez Roach [facility] POCT GLUCOSE (AUTOMATED) 2022-02-20 17:32:00 Vazquez Roach [facility] POCT GLUCOSE (AUTOMATED) 2022-02-20 17:23:00 Vazquez Roach [facility] URINE CULTURE 2022-02-20 16:32:00 Vazquez [facility] LACTIC ACID WHOLE BLOOD 2022-02-20 16:23:00 Vazquez Roach [facility] BLOOD CULTURE SCREEN 2022-02-20 16:21:00 Romaine Roach [facility] VITAMIN B12, LEVEL 2022-02-20 16:21:00 Akhil Rowe [facility] C-REACTIVE PROTEIN 2022-02-20 16:21:00 Vazquez Roach [facility] COMP. METABOLIC PANEL (37618) 2022-02-20 16:21:00 Vazquez Roach [facility] SEDIMENTATION RATE 2022-02-20 16:21:00 Vazquez Roach [facility] CBC WITH DIFF 2022-02-20 16:21:00 Vazquez [facility] GLYCOSYLATED HEMOGLOBIN (A1C) 2022-02-20 16:21:00 Akhil Rowe [facility] URINALYSIS 2022-02-20 16:21:00 Vazquez Roach [facility] WOUND/ASPIRATE OR ABSCESS CULTURE 2022-02-20 16:21:00 Vazquez Roach [facility] WOUND CULTURE 2022-02-20 16:21:00 Vazquez [facility] XR FOOT 3+ VW RIGHT 2022-02-20 16:14:57 Vazquez Roach [facility] BLOOD CULTURE SCREEN 2022-02-20 16:07:00 Romaine Roach [facility] POCT GLUCOSE (AUTOMATED) 2022-02-20 15:58:00 Vazquez Roach [facility] NOTICE OF PRIVACY PRACTICES 2022-02-20 15:47:03 Doctor Unassigned, [employer] [facility] CONSENT/REFUSAL FOR DIAGNOSIS AND TREATMENT 2022-02-20 15:39:26 Doctor Unassigned, [employer] [facility] REFERRAL- REQUEST/RESPONSE 2020-10-25 06:01:00 Doctor Unassigned, [employer] [facility] POCT GLUCOSE (AUTOMATED) 2020-10-14 22:37:00 Dallas Perry [facility] POCT GLUCOSE (AUTOMATED) 2020-10-14 17:49:00 Dallas Perry [facility] VANCOMYCIN TROUGH 2020-10-14 17:22:00 Akhil Rowe [facility] POCT GLUCOSE (AUTOMATED) 2020-10-14 13:45:00 Dallas Perry [facility] MAGNESIUM 2020-10-14 12:18:00 Akhil Rowe [facility] COMP. METABOLIC PANEL (25624) 2020-10-14 12:18:00 Akhil Rowe [facility] CBC WITH DIFF 2020-10-14 12:18:00 Akhil Rowe [facility] N-TERMINAL PRO-BNP 2020-10-14 12:18:00 Akhil Rowe [facility] POCT GLUCOSE (AUTOMATED) 2020-10-14 02:39:00 Dallas Perry [facility] POCT GLUCOSE (AUTOMATED) 2020-10-13 23:05:00 Dallas Perry [facility] POCT GLUCOSE (AUTOMATED) 2020-10-13 22:39:00 Dallas Perry [facility] POCT GLUCOSE (AUTOMATED) 2020-10-13 17:46:00 aDllas Perry [facility] RAVI MULTI LEVEL BY VASCULAR LAB 2020-10-13 16:18:41 Vicky [facility] BILATERAL DUPLEX SCAN OF ARTERY BY VASCULAR LAB 2020-10-13 14:57:14 Dallas Perry [facility] POCT GLUCOSE (AUTOMATED) 2020-10-13 13:49:00 Dallas Perry [facility] THYROID STIMULATING HORMONE 2020-10-13 12:32:00 Jory blake [facility] BASIC METABOLIC PANEL (NA, K, CL, CO2, GLUCOSE, BUN, CREATININE, CA) 2020-10-13 12:32:00 Dallas Perry [facility] LIPID PANEL (98977)(TOTAL CHOLESTEROL, TRIGLYCERIDES, HDL) 2020-10-13 12:32:00 Jory blake [facility] CBC WITH DIFF 2020-10-13 12:32:00 Dallas Perry [facility] N-TERMINAL PRO-BNP 2020-10-13 12:32:00 Jory blake [facility] VITAMIN D, 25-OH 2020-10-13 12:32:00 Madeline Hernandez ra [facility] POCT GLUCOSE (AUTOMATED) 2020-10-13 01:30:00 Dallas Perry [facility] CT FOOT RIGHT W CONTRAST 2020-10-13 00:17:12 Dallas Perry [facility] BLOOD CULTURE SCREEN 2020-10-12 22:07:00 Rose De La Paz [facility] COMP. METABOLIC PANEL (74687) 2020-10-12 22:07:00 Rose De La Paz [facility] CBC WITH DIFF 2020-10-12 22:07:00 Rose De La Paz [facility] GLYCOSYLATED HEMOGLOBIN (A1C) 2020-10-12 22:07:00 Dallas Perry [facility] URINALYSIS 2020-10-12 22:07:00 Rose De La Paz [facility] COVID-19 (ID NOW RAPID TESTING) 2020-10-12 22:07:00 Rose De La Paz [facility] UNILATERAL VENOUS DUPLEX LOWER EXTREMITY BY VASCULAR LAB 2020-10-12 21:58:42 Rose De La Paz [facility] XR ANKLE 3+ VW RIGHT 2020-10-12 21:54:56 Rose De La Paz [facility] XR TOES 2 VW RIGHT 2020-10-12 21:54:56 Rose De La Paz [facility] BLOOD CULTURE SCREEN 2020-10-12 21:51:00 Rose De La Paz [facility] CONSENT/REFUSAL FOR DIAGNOSIS AND TREATMENT 2020-10-12 20:03:31 Doctor Unassigned, [employer] [facility] CONSENT/REFUSAL FOR DIAGNOSIS AND TREATMENT 2020-06-25 19:02:46 Doctor Unassigned, [employer] [facility] Plan of Care Planned Activity Planned Date Details Comments Source Goal Plan of Care Note [code = 62098-6] Goal Plan of Care Note [code = 39549-7] Goal Plan of Care Note [code = 17879-0] Goal Plan of Care Note [code = 08620-7] Goal Plan of Care Note [code = 34376-0] Goal Plan of Care Note [code = 30660-9] Goal Plan of Care Note [code = 28729-3] Goal Plan of Care Note [code = 75674-6] Goal Plan of Care Note [code = 31604-5] Goal Plan of Care Note [code = 10605-6] Goal Plan of Care Note [code = 02084-7] Goal Plan of Care Note [code = 93408-1] Goal Plan of Care Note [code = 12145-2] Goal Plan of Care Note [code = 59197-2] Goal Plan of Care Note [code = 36866-8] Goal Plan of Care Note [code = 87788-8] Goal Plan of Care Note [code = 37896-6] Goal Plan of Care Note [code = 51388-3] Goal Plan of Care Note [code = 96056-1] Goal Plan of Care Note [code = 58423-3] Goal Plan of Care Note [code = 54501-7] Goal Plan of Care Note [code = 40186-8] Goal Plan of Care Note [code = 10448-5] Goal Plan of Care Note [code = 48077-6] Goal Plan of Care Note [code = 58209-7] Goal Plan of Care Note [code = 81620-2] Goal Plan of Care Note [code = 35733-9] Goal Plan of Care Note [code = 31212-5] Goal Plan of Care Note [code = 56207-2] Goal Plan of Care Note [code = 67346-7] Goal Plan of Care Note [code = 58522-5] Goal Plan of Care Note [code = 12411-1] Goal Plan of Care Note [code = 66572-0] Goal Plan of Care Note [code = 62853-4] Goal Plan of Care Note [code = 27103-9] Goal Plan of Care Note [code = 48670-4] Goal Plan of Care Note [code = 40016-8] Goal Plan of Care Note [code = 67653-1] Goal Plan of Care Note [code = 93356-8] Goal Plan of Care Note [code = 84110-6] Goal Plan of Care Note [code = 74854-7] Goal Plan of Care Note [code = 84259-4] Goal Plan of Care Note [code = 05997-3] Goal Plan of Care Note [code = 49180-5] Goal Plan of Care Note [code = 83668-0] Goal Plan of Care Note [code = 87186-4] Goal Plan of Care Note [code = 91934-5] Goal Plan of Care Note [code = 40384-3] Goal Plan of Care Note [code = 50360-4] Goal Plan of Care Note [code = 60343-9] Goal Plan of Care Note [code = 95036-8] Goal Plan of Care Note [code = 96094-9] Goal Plan of Care Note [code = 28915-2] Goal Plan of Care Note [code = 53884-6] Goal Plan of Care Note [code = 72511-4] Goal Plan of Care Note [code = 71330-3] Goal Plan of Care Note [code = 84885-4] Goal Plan of Care Note [code = 06345-6] Goal Plan of Care Note [code = 76356-0] Goal Plan of Care Note [code = 38793-9] Goal Plan of Care Note [code = 60951-7] Goal Plan of Care Note [code = 22358-0] Goal Plan of Care Note [code = 07118-9] Goal Plan of Care Note [code = 17119-0] Goal Plan of Care Note [code = 60126-4] Goal Plan of Care Note [code = 48492-0] Goal Plan of Care Note [code = 07577-5] Goal Plan of Care Note [code = 05660-2] Goal Plan of Care Note [code = 26940-9] Goal Plan of Care Note [code = 35965-5] Goal Plan of Care Note [code = 43799-8] Goal Plan of Care Note [code = 69254-2] Goal Plan of Care Note [code = 11532-5] Goal Plan of Care Note [code = 19352-2] Encounters Start Date/Time End Date/Time Encounter Type Admission Type Attending [facility] Care Department Encounter ID Source 2024-05-22 00:00:00 2024-05-22 15:21:01 Patient Outreach Carlton JiaAleksander NAM ..840.114 350.1.13.10 4.2.7.2.686 [id number] 403 [id number] [facility] 2024-04-30 00:00:00 2024-04-30 14:21:25 Patient Outreach Simona Vincent 1..840.114 350.1.13.10 4.2.7.2.686 [id number] [facility] 2024-04-23 00:00:00 2024-04-23 16:43:22 Patient Outreach Simona Vincent .2.840.114 350.1.13.10 4.2.7.2.686 [id number] 403 [id number] [facility] 2024-04-09 00:00:00 2024-04-20 09:53:41 Patient Outreach Simona Vincent 1.2.840.114 350.1.13.10 4.2.7.2.686 [id number] [facility] 2024-04-09 00:00:00 2024-04-09 10:14:57 Patient Outreach Simona Vincent 1.2.840.114 350.1.13.10 4.2.7.2.686 [id number] 403 [id number] [facility] 2024-03-31 00:00:00 2024-03-31 17:33:35 Patient Outreach Simona Vincent 1.2.840.114 350.1.13.10 4.2.7.2.686 [id number] [facility] 2024-03-12 00:00:00 2024-03-12 09:37:26 [facility] 1.2.840.114 350.1.13.10 4.2.7.2.686 [id number] [facility] 2024-03-05 00:00:00 2024-03-05 00:00:00 Patient Outreach Simona Vincent 1.2.840.114 350.1.13.10 4.2.7.2.686 [id number] [facility] 2024-02-26 00:00:00 2024-02-26 00:00:00 Patient Outreach Simona Vincent 1.2.840.114 350.1.13.10 4.2.7.2.686 [id number] 403 [id number] [facility] 2024-02-20 00:00:00 2024-02-20 00:00:00 Patient Outreach Cathie Alcantara 1.2.840.114 350.1.13.10 4.2.7.2.686 [id number] 403 [id number] [facility] 2024-02-10 00:00:00 2024-02-10 00:00:00 Patient Outreach Simona Vincent 1.2.840.114 350.1.13.10 4.2.7.2.686 [id number] 403 [id number] [facility] 2024-02-07 00:00:00 2024-02-07 00:00:00 Patient Outreach Simona Vincent 1.2.840.114 350.1.13.10 4.2.7.2.686 [id number] [facility] 2024-01-29 11:00:00 2024-01-29 11:15:00 Patient Outreach Simona Vincent 1.2.840.114 350.1.13.10 4.2.7.2.686 [id number] 403 [id number] [facility] 2024-01-28 00:00:00 2024-01-28 00:00:00 Patient Outreach Simona Vincent 1.2.840.114 350.1.13.10 4.2.7.2.686 [id number] 403 [id number] [facility] 2023-12-24 00:00:00 2023-12-24 00:00:00 Patient Outreach Simona Vincent 1.2.840.114 350.1.13.10 4.2.7.2.686 [id number] [facility] 2023-12-16 00:00:00 2023-12-16 00:00:00 Outpatient [facility] [id number] [facility] 2023-12-16 00:00:00 2023-12-16 00:00:00 Patient Outreach Simona Vincent 1.2.840.114 350.1.13.10 4.2.7.2.686 [id number] [facility] 2023-12-16 00:00:00 2023-12-16 00:00:00 Patient Outreach Cathie Alcantara 1.2.840.114 350.1.13.10 4.2.7.2.686 [id number] 403 [id number] [facility] 2023-12-05 00:00:00 2023-12-05 00:00:00 Patient Outreach Simona Vincent 1.2.840.114 350.1.13.10 4.2.7.2.686 [id number] [facility] 2023-11-29 00:00:00 2023-11-29 00:00:00 Outpatient [facility] [id number] [facility] 2023-11-25 00:00:00 2023-11-25 00:00:00 Patient Outreach Simona Vincent 1.2.840.114 350.1.13.10 4.2.7.2.686 [id number] 403 [id number] [facility] 2023-11-19 00:00:00 2023-11-19 00:00:00 Patient Outreach Simona Vincent 1.2.840.114 350.1.13.10 4.2.7.2.686 [id number] 403 [id number] [facility] 2023-11-08 00:00:00 2023-11-08 00:00:00 Patient Outreach Simona Vincent 1.2.840.114 350.1.13.10 4.2.7.2.686 [id number] 403 [id number] [facility] 2023-11-05 00:00:00 2023-11-05 00:00:00 Patient Outreach Simona Vincent 1.2.840.114 350.1.13.10 4.2.7.2.686 [id number] 403 [id number] [facility] 2023-11-01 00:00:00 2023-11-01 00:00:00 Patient Outreach Lesly Hammond 1.2.840.114 350.1.13.10 4.2.7.2.686 [id number] 403 [id number] [facility] 2023-10-23 00:00:00 2023-10-23 00:00:00 Patient Outreach Elsa Torres Chaparrita NAM 1.2.840.114 350.1.13.10 4.2.7.2.686 [id number] 403 [id number] [facility] 2023-10-10 00:00:00 2023-10-10 00:00:00 Patient Outreach Cathie Alcantara 1.2.840.114 350.1.13.10 4.2.7.2.686 [id number] 403 [id number] [facility] 2023-10-08 00:00:00 2023-10-08 00:00:00 Patient Outreach Cathie Alcantara 1.2.840.114 350.1.13.10 4.2.7.2.686 [id number] 403 [id number] [facility] 2023-10-08 00:00:00 2023-10-08 00:00:00 Patient Outreach Cathie Alcantara 1.2.840.114 350.1.13.10 4.2.7.2.686 [id number] [facility] 2023-09-28 00:00:00 2023-09-28 00:00:00 Telephone Torito Kirkland [facility] 1.2.840.114 350.1.13.10 4.2.7.2.686 [id number] [facility] 2023-09-24 00:00:00 2023-09-24 00:00:00 Patient Outreach HaysJana GUILLAUMEEstefany NAM 1.2.840.114 350.1.13.10 4.2.7.2.686 [id number] 403 [id number] [facility] 2023-09-23 00:00:00 2023-09-23 00:00:00 Outpatient [facility] [id number] [facility] 2023-09-23 00:00:00 2023-09-23 00:00:00 Patient Outreach Cathie Alcantara 1.2.840.114 350.1.13.10 4.2.7.2.686 [id number] 403 [id number] [facility] 2023-09-20 00:00:00 2023-09-20 00:00:00 Patient Outreach Cathie Alcantara GUILLAUMEEstefany NAM 1.2.840.114 350.1.13.10 4.2.7.2.686 [id number] 403 [id number] [facility] 2023-09-19 00:00:00 2023-09-19 00:00:00 Patient Outreach Lesly Hammond 1.2.840.114 350.1.13.10 4.2.7.2.686 [id number] [facility] 2023-09-19 00:00:00 2023-09-19 00:00:00 Patient Outreach Cathie Alcantara 1.2.840.114 350.1.13.10 4.2.7.2.686 [id number] 403 [id number] [facility] 2023-09-19 00:00:00 2023-09-19 00:00:00 Patient Outreach Jana Hays 1.2.840.114 350.1.13.10 4.2.7.2.686 [id number] 403 [id number] [facility] 2023-09-17 09:53:00 2023-09-17 12:03:00 Emergency X JAMES Gaytan [facility] ERT [id number] [facility] 2023-09-17 09:53:00 2023-09-17 12:03:00 Emergency James gaytan [facility] 1.2.840.114 350.1.13.10 4.2.7.2.686 [id number] [facility] 2023-09-02 00:00:00 2023-09-02 00:00:00 Patient Outreach Simona Vincent CHAS NAM 1.2.840.114 350.1.13.10 4.2.7.2.686 [id number] 403 [id number] [facility] 2023-08-15 12:30:00 2023-08-15 13:00:00 Patient Outreach Simona Vincent CHAS NAM 1.2.840.114 350.1.13.10 4.2.7.2.686 [id number] [facility] 2023-08-12 00:00:00 2023-08-12 00:00:00 Patient Outreach Simona Vincent CHAS NAM 1.2.840.114 350.1.13.10 4.2.7.2.686 [id number] 403 [id number] [facility] 2023-08-09 00:00:00 2023-08-09 00:00:00 Patient Outreach Cathie Alcantara 1.2.840.114 350.1.13.10 4.2.7.2.686 [id number] 403 [id number] [facility] 2023-07-30 00:00:00 2023-07-30 00:00:[address] [facility] 1.2.840.114 350.1.13.10 4.2.7.2.686 [id number] 403 [id number] [facility] 2023-07-29 00:00:00 2023-07-29 00:00:00 Patient Outreach Simona VincentEstefany NAM 1.2.840.114 350.1.13.10 4.2.7.2.686 [id number] 403 [id number] [facility] 2023-07-26 00:00:00 2023-07-26 00:00:[address] [facility] 1.2.840.114 350.1.13.10 4.2.7.2.686 [id number] 403 [id number] [facility] 2023-07-25 00:00:00 2023-07-25 00:00:[address] [facility] 1.2.840.114 350.1.13.10 4.2.7.2.686 [id number] 403 [id number] [facility] 2023-07-23 00:00:00 2023-07-23 00:00:[address] [facility] 1.2.840.114 350.1.13.10 4.2.7.2.686 [id number] 403 [id number] [facility] 2023-07-22 00:00:00 2023-07-22 00:00:[address] [facility] 1.2.840.114 350.1.13.10 4.2.7.2.686 [id number] 403 [id number] [facility] 2023-07-22 00:00:00 2023-07-22 00:00:00 Patient Outreach Simona Vincent PATRICKCHANEL 1.2.840.114 350.1.13.10 4.2.7.2.686 [id number] 403 [id number] [facility] 2023-07-19 00:00:00 2023-07-19 00:00:00 Patient Outreach Simona Vincent 1.2.840.114 350.1.13.10 4.2.7.2.686 [id number] 403 [id number] [facility] 2023-07-19 00:00:00 2023-07-19 00:00:00 Patient Outreach Simona Vincent 1.2.840.114 350.1.13.10 4.2.7.2.686 [id number] 403 [id number] [facility] 2023-07-17 00:00:00 2023-07-17 00:00:00 Patient Outreach Simona Vincent PATRICKCHANEL 1.2.840.114 350.1.13.10 4.2.7.2.686 [id number] 403 [id number] [facility] 2023-07-16 00:00:00 2023-07-16 00:00:00 Patient Outreach Jana Hays [facility] 1.2.840.114 350.1.13.10 4.2.7.2.686 [id number] 403 [id number] [facility] 2023-07-15 00:00:00 2023-07-15 00:00:00 Patient Outreach Simona VincentEstefany NGUYENCHANEL 1.2.840.114 350.1.13.10 4.2.7.2.686 [id number] 403 [id number] [facility] 2023-07-10 00:00:00 2023-07-10 00:00:00 Patient Outreach Simona VincentWon GUILLAUME PLACHANEL 1.2.840.114 350.1.13.10 4.2.7.2.686 [id number] 403 [id number] [facility] 2023-07-04 00:00:00 2023-07-04 00:00:00 Patient Outreach Simona VincentWon GUILLAUMEEstefany NAM 1.2.840.114 350.1.13.10 4.2.7.2.686 [id number] 403 [id number] [facility] 2023-06-28 10:53:00 2023-06-28 13:05:00 Emergency X AYAH HARMON [facility] ERT [id number] [facility] 2023-06-28 10:53:00 2023-06-28 13:05:00 Emergency Ayah Harmon [facility] 1.2.840.114 350.1.13.10 4.2.7.2.686 [id number] 084 [id number] [facility] 2023-06-27 00:00:00 2023-06-27 00:00:00 Patient Outreach Jana Hays [facility] 1.2.840.114 350.1.13.10 4.2.7.2.686 [id number] 403 [id number] [facility] 2023-06-27 00:00:00 2023-06-27 00:00:00 Patient Outreach Jana Hays [facility] 1.2.840.114 350.1.13.10 4.2.7.2.686 [id number] 403 [id number] [facility] 2023-06-24 00:00:00 2023-06-24 00:00:00 Patient Outreach Simona Vincent 1.2.840.114 350.1.13.10 4.2.7.2.686 [id number] 403 [id number] [facility] 2023-06-21 00:00:00 2023-06-21 00:00:00 Patient Outreach Jana Hays [facility] 1.2.840.114 350.1.13.10 4.2.7.2.686 [id number] 403 [id number] [facility] 2023-06-14 00:00:00 2023-06-14 00:00:00 Patient Outreach Simona Vincent 1.2.840.114 350.1.13.10 4.2.7.2.686 [id number] 403 [id number] [facility] 2023-06-12 00:00:00 2023-06-12 00:00:00 [facility] 1.2.840.114 350.1.13.10 4.2.7.2.686 [id number] 403 [id number] [facility] 2023-06-12 00:00:00 2023-06-12 00:00:[address] [facility] 1.2.840.114 350.1.13.10 4.2.7.2.686 [id number] 403 [id number] [facility] 2023-06-10 00:00:00 2023-06-10 00:00:[address] [facility] 1.2.840.114 350.1.13.10 4.2.7.2.686 [id number] 403 [id number] [facility] 2023-06-07 00:00:00 2023-06-07 00:00:00 [facility] 1.2.840.114 350.1.13.10 4.2.7.2.686 [id number] 403 [id number] [facility] 2023-06-05 00:00:00 2023-06-05 00:00:00 Patient Outreach Simona Vincent 1.2.840.114 350.1.13.10 4.2.7.2.686 [id number] 403 [id number] [facility] 2023-06-04 00:00:00 2023-06-04 00:00:00 Patient Outreach Simona Vincent 1.2.840.114 350.1.13.10 4.2.7.2.686 [id number] 403 [id number] [facility] 2023-06-03 00:00:00 2023-06-03 00:00:00 Patient Outreach Jana Hays [facility] 1.2.840.114 350.1.13.10 4.2.7.2.686 [id number] 403 [id number] [facility] 2023-05-30 00:00:00 2023-05-30 00:00:00 Patient Outreach Simona VincentEstefany NAM 1.2.840.114 350.1.13.10 4.2.7.2.686 [id number] 403 [id number] [facility] 2023-05-30 00:00:00 2023-05-30 00:00:00 Patient Outreach Jana Hays [facility] 1.2.840.114 350.1.13.10 4.2.7.2.686 [id number] 403 [id number] [facility] 2023-05-19 12:45:00 2023-05-19 14:10:00 Emergency X GIL MASON [facility] ERT [id number] [facility] 2023-05-19 12:45:00 2023-05-19 14:10:00 Emergency Gil Mason [facility] 1.2.840.114 350.1.13.10 4.2.7.2.686 [id number] 084 [id number] [facility] 2023-05-17 00:00:00 2023-05-17 00:00:00 Patient Outreach Jana Hays [facility] 1.2.840.114 350.1.13.10 4.2.7.2.686 [id number] 403 [id number] [facility] 2023-05-16 00:00:00 2023-05-16 00:00:00 Patient Outreach Simona Vincent [facility] 1.2.840.114 350.1.13.10 4.2.7.2.686 [id number] 403 [id number] [facility] 2023-05-15 00:00:00 2023-05-15 00:00:00 Patient Outreach Jana Hays [facility] 1.2.840.114 350.1.13.10 4.2.7.2.686 [id number] 403 [id number] [facility] 2023-05-10 00:00:00 2023-05-10 00:00:00 Patient Outreach Simona Vincent [facility] 1.2.840.114 350.1.13.10 4.2.7.2.686 [id number] 403 [id number] [facility] 2023-05-10 00:00:00 2023-05-10 00:00:00 Patient Outreach Jana Hays [facility] 1.2.840.114 350.1.13.10 4.2.7.2.686 [id number] 403 [id number] [facility] 2023-05-08 00:00:00 2023-05-08 00:00:00 Patient Outreach Simona Vincent [facility] 1.2.840.114 350.1.13.10 4.2.7.2.686 [id number] 403 [id number] [facility] 2023-05-03 00:00:00 2023-05-03 00:00:00 Patient Outreach Jana Hays [facility] 1.2.840.114 350.1.13.10 4.2.7.2.686 [id number] 403 [id number] [facility] 2023-04-29 00:00:00 2023-04-29 00:00:00 Patient Outreach Simona Vincent [facility] 1.2.840.114 350.1.13.10 4.2.7.2.686 [id number] 403 [id number] [facility] 2023-04-24 00:00:00 2023-04-24 00:00:00 Outpatient [facility] [id number] [facility] 2023-04-23 00:00:00 2023-04-23 00:00:00 Patient Outreach Jana Hays [facility] 1.2.840.114 350.1.13.10 4.2.7.2.686 [id number] 403 [id number] [facility] 2023-04-18 00:00:00 2023-04-18 00:00:00 Patient Outreach Simona VincentEstefany NAM 1.2.840.114 350.1.13.10 4.2.7.2.686 [id number] 403 [id number] [facility] 2023-04-16 00:00:00 2023-04-16 00:00:00 Patient Outreach Salú Jana [facility] 1.2.840.114 350.1.13.10 4.2.7.2.686 [id number] 403 [id number] [facility] 2023-04-12 12:30:00 2023-04-12 13:15:00 Patient Outreach Simona VincentWon NAM 1.2.840.114 350.1.13.10 4.2.7.2.686 [id number] 403 [id number] [facility] 2023-04-11 00:00:00 2023-04-11 00:00:00 Patient Outreach Simona VincentWon NAM 1.2.840.114 350.1.13.10 4.2.7.2.686 [id number] 403 [id number] [facility] 2023-04-04 00:00:00 2023-04-04 00:00:00 Patient Outreach Simona VincentWon NAM 1.2.840.114 350.1.13.10 4.2.7.2.686 [id number] 403 [id number] [facility] 2023-03-29 00:00:00 2023-03-29 00:00:00 Patient Outreach CarltonSimona 1.2.840.114 350.1.13.10 4.2.7.2.686 [id number] 403 [id number] [facility] 2023-03-28 00:00:00 2023-03-28 00:00:00 Patient Outreach Cathie Alcantara 1.2.840.114 350.1.13.10 4.2.7.2.686 [id number] 403 [id number] [facility] 2023-03-28 00:00:00 2023-03-28 00:00:00 Patient Outreach Cathie Alcantara 1.2.840.114 350.1.13.10 4.2.7.2.686 [id number] 403 [id number] [facility] 2023-03-27 00:00:00 2023-03-27 00:00:00 Patient Outreach Simona Vincent 1.2.840.114 350.1.13.10 4.2.7.2.686 [id number] 403 [id number] [facility] 2023-03-27 00:00:00 2023-03-27 00:00:00 Patient Outreach Cathie Alcantara 1.2.840.114 350.1.13.10 4.2.7.2.686 [id number] 403 [id number] [facility] 2023-03-22 00:00:00 2023-03-22 00:00:00 Patient Outreach Cathie Alcantara 1.2.840.114 350.1.13.10 4.2.7.2.686 [id number] 403 [id number] [facility] 2023-03-19 00:00:00 2023-03-19 00:00:00 Patient Outreach Simona Vincent 1.2.840.114 350.1.13.10 4.2.7.2.686 [id number] 403 [id number] [facility] 2023-03-13 00:00:00 2023-03-13 00:00:00 Patient Outreach Cathie Alcantara 1.2.840.114 350.1.13.10 4.2.7.2.686 [id number] 403 [id number] [facility] 2023-03-08 00:00:00 2023-03-08 00:00:00 Patient Outreach Simona Vincent 1.2.840.114 350.1.13.10 4.2.7.2.686 [id number] 403 [id number] [facility] 2023-03-04 00:00:00 2023-03-04 00:00:00 Patient Outreach Simona Vincent 1.2.840.114 350.1.13.10 4.2.7.2.686 [id number] 403 [id number] [facility] 2023-03-04 00:00:00 2023-03-04 00:00:00 Patient Outreach Kevin Mcguire 1.2.840.114 350.1.13.10 4.2.7.2.686 [id number] 403 [id number] [facility] 2023-02-28 10:15:00 2023-02-28 10:15:00 Outpatient MARTHA QUINONES CHRISTINE [facility] [id number] [facility] 2023-02-27 00:00:00 2023-02-27 00:00:00 Patient Outreach Simona Vincent 1.2.840.114 350.1.13.10 4.2.7.2.686 [id number] 403 [id number] [facility] 2023-02-25 00:00:00 2023-02-25 00:00:00 Patient Outreach Simona Vincent 1.2.840.114 350.1.13.10 4.2.7.2.686 [id number] 403 [id number] [facility] 2023-02-21 00:00:00 2023-02-21 00:00:00 Patient Outreach Cathie Alcantara 1.2.840.114 350.1.13.10 4.2.7.2.686 [id number] 403 [id number] [facility] 2023-02-21 00:00:00 2023-02-21 00:00:00 Patient Outreach Simona Vincent 1.2.840.114 350.1.13.10 4.2.7.2.686 [id number] 403 [id number] [facility] 2023-02-20 09:00:00 2023-02-20 10:30:00 Patient Outreach Cathie Alcantara 1.2.840.114 350.1.13.10 4.2.7.2.686 [id number] 403 [id number] [facility] 2023-02-20 00:00:00 2023-02-20 00:00:00 Patient Outreach Shayla Kevin Antoine TOMASWon GUILLAUME PATRICKCHAN[facility] 1.2.840.114 350.1.13.10 4.2.7.2.686 [id number] 403 [id number] [facility] 2023-02-19 00:00:00 2023-02-19 00:00:00 Patient Outreach Cathie Alcantara 1.2.840.114 350.1.13.10 4.2.7.2.686 [id number] 403 [id number] [facility] 2023-02-15 00:00:00 2023-02-15 00:00:00 Patient Outreach Simona Vincent 1.2.840.114 350.1.13.10 4.2.7.2.686 [id number] 403 [id number] [facility] 2023-02-14 10:45:00 2023-02-14 10:45:00 Office Visit Martha Sharp [facility] 1.2.840.114 350.1.13.10 4.2.7.2.686 [id number] 198 [id number] [facility] 2023-02-14 10:45:00 2023-02-14 10:29:07 Outpatient R MARTHA SHARP CHRISTINE [facility] [id number] [facility] 2023-02-14 00:00:00 2023-02-14 00:00:00 Orders Only Doctor Unassigned, [facility] 1.2.840.114 350.1.13.10 4.2.7.2.686 [id number] 009 [id number] [facility] 2023-02-14 00:00:00 2023-02-14 00:00:00 Patient Outreach Cathie Alcantara 1.2.840.114 350.1.13.10 4.2.7.2.686 [id number] 403 [id number] [facility] 2023-02-14 00:00:00 2023-02-14 00:00:00 Patient Outreach Simona Vincent 1.2.840.114 350.1.13.10 4.2.7.2.686 [id number] 403 [id number] [facility] 2023-02-11 00:00:00 2023-02-11 00:00:00 Patient Outreach Simona Vincent 1.2.840.114 350.1.13.10 4.2.7.2.686 [id number] 403 [id number] [facility] 2023-02-04 00:00:00 2023-02-04 00:00:00 Patient Outreach Cathie Alcantara 1.2.840.114 350.1.13.10 4.2.7.2.686 [id number] 403 [id number] [facility] 2023-02-04 00:00:00 2023-02-04 00:00:00 Patient Outreach Kevin Mcguire 1.2.840.114 350.1.13.10 4.2.7.2.686 [id number] 403 [id number] [facility] 2023-02-04 00:00:00 2023-02-04 00:00:00 Patient Outreach Simona Vincent 1.2.840.114 350.1.13.10 4.2.7.2.686 [id number] 403 [id number] [facility] 2023-01-30 00:00:00 2023-01-30 00:00:00 Patient Outreach Simona Vincent 1.2.840.114 350.1.13.10 4.2.7.2.686 [id number] 403 [id number] [facility] 2023-01-29 00:00:00 2023-01-29 00:00:00 Patient Outreach Simona Vincent 1.2.840.114 350.1.13.10 4.2.7.2.686 [id number] 403 [id number] [facility] 2023-01-29 00:00:00 2023-01-29 00:00:00 Transition of Care Airam Thornton 1.2.840.114 350.1.13.10 4.2.7.2.686 [id number] 403 [id number] [facility] 2023-01-16 19:34:00 2023-01-25 18:15:00 Inpatient U ELIESER WINSLOW [facility] [id number] [facility] 2023-01-16 19:34:00 2023-01-25 18:15:00 Hospital Encounter Levi Brown, Mirlande Hernandez, Fermin Dunlap, Elieser Castorena, Torito Carrillo [facility] 1.2.840.114 350.1.13.10 4.2.7.2.686 [id number] 093 [id number] [facility] 2023-01-25 00:00:00 2023-01-25 00:00:00 Transition of Care Airam Thornton 1.2.840.114 350.1.13.10 4.2.7.2.686 [id number] 403 [id number] [facility] 2023-01-21 07:00:00 2023-01-21 08:14:00 Surgery Martha Sharp [facility] 1.2.840.114 350.1.13.10 4.2.7.2.686 [id number] 020 [id number] [facility] 2023-01-16 00:00:00 2023-01-16 00:00:00 Orders Only Doctor Unassigned, [facility] 1.2.840.114 350.1.13.10 4.2.7.2.686 [id number] [id number] [facility] 2023-01-14 00:00:00 2023-01-14 00:00:00 Patient Outreach Cathie Alcantara 1.2.840.114 350.1.13.10 4.2.7.2.686 [id number] 403 [id number] [facility] 2023-01-11 00:00:00 2023-01-11 00:00:00 Patient Outreach Cathie Alcantara [facility] 1.2.840.114 350.1.13.10 4.2.7.2.686 [id number] 403 [id number] [facility] 2023-01-09 00:00:00 2023-01-09 00:00:00 Patient Outreach Lesly Hammond TOMASWon GUILLAUME PLACHANEL 1.2.840.114 350.1.13.10 4.2.7.2.686 [id number] 403 [id number] [facility] 2023-01-02 00:00:00 2023-01-02 00:00:00 Patient Outreach Simona Vincent 1.2.840.114 350.1.13.10 4.2.7.2.686 [id number] 403 [id number] [facility] 2022-12-31 00:00:00 2022-12-31 00:00:00 Patient Outreach Cathie Alcantara 1.2.840.114 350.1.13.10 4.2.7.2.686 [id number] 403 [id number] [facility] 2022-12-28 00:00:00 2022-12-28 00:00:00 Patient Outreach Cathie Alcantara 1.2.840.114 350.1.13.10 4.2.7.2.686 [id number] 403 [id number] [facility] 2022-12-27 00:00:00 2022-12-27 00:00:00 Patient Outreach Simona Vincent 1.2.840.114 350.1.13.10 4.2.7.2.686 [id number] 403 [id number] [facility] 2022-12-18 15:14:00 2022-12-20 11:47:00 Outpatient X YVON [facility]AIN [facility] [id number] [facility] 2022-12-18 15:14:00 2022-12-20 11:47:00 Emergency Barak Murray [facility] 1.2.840.114 350.1.13.10 4.2.7.2.686 [id number] 113 [id number] [facility] 2022-12-17 14:51:50 2022-12-17 14:51:50 Outpatient [facility] [id number] Jose Salazar 2022-12-17 00:00:00 2022-12-17 00:00:00 Patient Outreach Simona Vincent [facility] 1.2.840.114 350.1.13.10 4.2.7.2.686 [id number] 403 [id number] [facility] 2022-12-17 00:00:00 2022-12-17 00:00:00 Patient Outreach Simona Vincent [facility] 1.2.840.114 350.1.13.10 4.2.7.2.686 [id number] 403 [id number] [facility] 2022-12-14 00:00:00 2022-12-14 00:00:00 Transition of Care ThorntonAiram becerra CHAS NAM 1.2.840.114 350.1.13.10 4.2.7.2.686 [id number] 403 [id number] [facility] 2022-12-08 12:11:00 2022-12-13 17:30:00 Inpatient TRISHA MOODY [facility] [id number] [facility] 2022-12-08 12:11:00 2022-12-13 17:30:00 Hospital Encounter Kevin Uriarte, Jeramy Foster [facility] ([facility] 1.2.840.114 350.1.13.10 4.2.7.2.686 [id number] 109 [id number] [facility] 2022-12-12 17:56:00 2022-12-12 18:52:00 Surgery Mendoza Lovett [facility] ([facility] 1.2.840.114 350.1.13.10 4.2.7.2.686 [id number] 020 [id number] [facility] 2022-12-12 00:00:00 2022-12-12 00:00:00 Patient Outreach Quniton Cathieopal MARINWon GUILLAUMEEstefany NAM 1.2.840.114 350.1.13.10 4.2.7.2.686 [id number] 403 [id number] [facility] 2022-12-12 00:00:00 2022-12-12 00:00:00 Patient Outreach Simona Vincent 1.2.840.114 350.1.13.10 4.2.7.2.686 [id number] 403 [id number] [facility] 2022-12-05 00:00:00 2022-12-05 00:00:00 Patient Outreach Cathie Alcantara 1.2.840.114 350.1.13.10 4.2.7.2.686 [id number] 403 [id number] [facility] 2022-12-04 00:00:00 2022-12-04 00:00:00 Patient Outreach Cathie Alcantara 1.2.840.114 350.1.13.10 4.2.7.2.686 [id number] 403 [id number] [facility] 2022-12-01 15:15:00 2022-12-01 19:15:00 Emergency X GIL MASON [facility] E[facility] [id number] [facility] 2022-12-01 15:15:00 2022-12-01 19:15:00 Emergency Gil Mason [facility] 1.2.840.114 350.1.13.10 4.2.7.2.686 [id number] 084 [id number] [facility] 2022-11-30 00:00:00 2022-11-30 00:00:00 Patient Outreach Cathie Alcantara 1.2.840.114 350.1.13.10 4.2.7.2.686 [id number] 403 [id number] [facility] 2022-11-30 00:00:00 2022-11-30 00:00:00 Patient Outreach Simona Vincent PATRICKCHANEL 1.2.840.114 350.1.13.10 4.2.7.2.686 [id number] 403 [id number] [facility] 2022-11-30 00:00:00 2022-11-30 00:00:00 Patient Outreach Cathie Alcantara 1.2.840.114 350.1.13.10 4.2.7.2.686 [id number] 403 [id number] [facility] 2022-11-30 00:00:00 2022-11-30 00:00:00 Patient Outreach Simona Vincent 1.2.840.114 350.1.13.10 4.2.7.2.686 [id number] 403 [id number] [facility] 2022-11-21 00:00:00 2022-11-21 00:00:00 Patient Outreach Cathie Alcantara 1.2.840.114 350.1.13.10 4.2.7.2.686 [id number] 403 [id number] [facility] 2022-11-20 11:00:00 2022-11-20 11:45:00 Patient Outreach Simona Vincent 1.2.840.114 350.1.13.10 4.2.7.2.686 [id number] 403 [id number] [facility] 2022-11-20 00:00:00 2022-11-20 00:00:00 Patient Outreach Cathie Alcantara 1.2.840.114 350.1.13.10 4.2.7.2.686 [id number] 403 [id number] [facility] 2022-11-16 00:00:00 2022-11-16 00:00:00 Patient Outreach Simona Vincent 1.2.840.114 350.1.13.10 4.2.7.2.686 [id number] 403 [id number] [facility] 2022-10-25 00:00:00 2022-10-25 00:00:00 Patient Outreach Simona Vincent 1.2.840.114 350.1.13.10 4.2.7.2.686 [id number] 403 [id number] [facility] 2022-10-24 00:00:00 2022-10-24 00:00:00 Patient Outreach Simona Vincent 1.2.840.114 350.1.13.10 4.2.7.2.686 [id number] 403 [id number] [facility] 2022-10-23 14:45:00 2022-10-23 15:30:00 Patient Outreach Simona Vincent 1.2.840.114 350.1.13.10 4.2.7.2.686 [id number] 403 [id number] [facility] 2022-10-22 00:00:00 2022-10-22 00:00:00 Patient Outreach Cathie Alcantara 1.2.840.114 350.1.13.10 4.2.7.2.686 [id number] 403 [id number] [facility] 2022-10-22 00:00:00 2022-10-22 00:00:00 Patient Outreach Simona Vincent 1.2.840.114 350.1.13.10 4.2.7.2.686 [id number] 403 [id number] [facility] 2022-10-17 00:00:00 2022-10-17 00:00:00 Patient Outreach Cathie Alcantara 1.2.840.114 350.1.13.10 4.2.7.2.686 [id number] 403 [id number] [facility] 2022-10-17 00:00:00 2022-10-17 00:00:00 Orders Only Doctor Unassigned, [facility] 1.2.840.114 350.1.13.10 4.2.7.2.686 [id number] [facility] 2022-10-17 00:00:00 2022-10-17 00:00:00 Patient Outreach Simona Vincent 1.2.840.114 350.1.13.10 4.2.7.2.686 [id number] 403 [id number] [facility] 2022-10-16 00:00:00 2022-10-16 00:00:00 Patient Outreach Quinton Cathieopal GUILLAUME PATRICKCHANEL 1.2.840.114 350.1.13.10 4.2.7.2.686 [id number] 403 [id number] [facility] 2022-09-26 00:00:00 2022-09-26 00:00:00 Patient Outreach Chet Tavia Dana TOMASWon GUILLAUME PLACHANEL 1.2.840.114 350.1.13.10 4.2.7.2.686 [id number] 403 [id number] [facility] 2022-09-24 00:00:00 2022-09-24 00:00:00 Patient Outreach Simona Vincent 1.2.840.114 350.1.13.10 4.2.7.2.686 [id number] 403 [id number] [facility] 2022-09-21 00:00:00 2022-09-21 00:00:00 Patient Outreach Cathie AlcantaraWon GUILLAUMEEstefany NAM 1.2.840.114 350.1.13.10 4.2.7.2.686 [id number] 403 [id number] [facility] 2022-09-20 10:30:00 2022-09-20 11:30:00 Patient Outreach Simona VincentWon GUILLAUME CYRIL 1.2.840.114 350.1.13.10 4.2.7.2.686 [id number] 403 [id number] [facility] 2022-09-20 10:30:00 2022-09-20 11:30:00 Patient Outreach Cathie Alcantara 1.2.840.114 350.1.13.10 4.2.7.2.686 [id number] 403 [id number] [facility] 2022-09-20 00:00:00 2022-09-20 00:00:00 Patient Outreach Cathie Alcantara 1.2.840.114 350.1.13.10 4.2.7.2.686 [id number] 403 [id number] [facility] 2022-09-19 00:00:00 2022-09-19 00:00:00 Patient Outreach Cathie Alcantara 1.2.840.114 350.1.13.10 4.2.7.2.686 [id number] 403 [id number] [facility] 2022-09-17 00:00:00 2022-09-17 00:00:00 Patient Outreach Cathie Alcantara 1.2.840.114 350.1.13.10 4.2.7.2.686 [id number] 403 [id number] [facility] 2022-09-07 00:00:00 2022-09-07 00:00:00 Transition of Care Airam Thornton 1.2.840.114 350.1.13.10 4.2.7.2.686 [id number] 403 [id number] [facility] 2022-09-07 00:00:00 2022-09-07 00:00:00 Transition of Care Airam Thornton 1.2.840.114 350.1.13.10 4.2.7.2.686 [id number] 403 [id number] [facility] 2022-09-02 02:06:00 2022-09-06 14:00:00 Inpatient X AKHIL ROWE [facility] [id number] [facility] 2022-09-02 02:06:00 2022-09-06 14:00:00 Hospital Encounter Levi Brown Adnan [facility] 1.2.840.114 350.1.13.10 4.2.7.2.686 [id number] [facility] 2022-08-29 22:49:00 2022-08-30 00:16:00 [facility] [id number] [facility] 2022-08-29 22:49:00 2022-08-30 00:16:00 [facility] 1.2.840.114 350.1.13.10 4.2.7.2.686 [id number] [facility] 2022-07-30 00:00:00 2022-07-30 00:00:00 Outpatient Visit [id number] 2022-06-22 00:00:00 2022-06-22 00:00:00 Outpatient Visit [id number]-[id number] 2022-06-20 18:48:00 2022-06-20 23:01:00 Emergency X ARAVIND POLANCO [facility] ERT [id number] [facility] 2022-06-20 18:48:00 2022-06-20 23:01:00 Emergency Aravind Polanco F [facility] 1.2.840.114 350.1.13.10 4.2.7.2.686 [id number] [facility] 2022-02-20 11:02:00 2022-02-22 13:05:00 Outpatient X DARRYL PEOPLES [facility] [id number] [facility] 2022-02-20 11:02:00 2022-02-22 13:05:00 Emergency Vazquez Roach JoeypashaDarryl Adnan [facility] 1.2.840.114 350.1.13.10 4.2.7.2.686 [id number] [facility] 2022-02-20 00:00:00 2022-02-20 00:00:00 Orders Only Doctor Unassigned, [facility] 1.2.840.114 350.1.13.10 4.2.7.2.686 [id number] [facility] 2020-10-25 00:00:00 2020-10-25 00:00:00 Orders Only Doctor Unassigned, [employer] [facility] 1.2.840.114 350.1.13.10 4.2.7.2.686 [id number] 2020-10-25 00:00:00 2020-10-25 00:00:00 Orders Only Doctor Unassigned, [employer] [facility] 1.2.840.114 350.1.13.10 4.2.7.2.686 [id number] [facility] 2020-10-12 14:28:00 2020-10-14 18:26:00 Hospital Encounter Rose De La Paz Yaman [facility] 1.2.840.114 350.1.13.10 4.2.7.2.686 [id number] 2020-10-12 14:28:00 2020-10-14 18:26:00 Inpatient X DALLAS PERRY [facility] [id number] [facility] 2020-10-12 14:28:00 2020-10-14 18:26:00 Hospital Encounter Rose De La Paz Yaman [facility] 1.2.840.114 350.1.13.10 4.2.7.2.686 [id number] [facility] 2020-10-12 00:00:00 2020-10-12 00:00:00 Orders Only Doctor Unassigned, [employer] [facility] 1.2.840.114 350.1.13.10 4.2.7.2.686 [id number] 2020-10-12 00:00:00 2020-10-12 00:00:00 Orders Only Doctor Unassigned, [employer] [facility] 1.2.840.114 350.1.13.10 4.2.7.2.686 [id number] [facility] 2020-06-25 14:16:00 2020-06-25 15:40:00 Emergency Rose De La Paz [facility] 1.2.840.114 350.1.13.10 4.2.7.2.686 [id number] 2020-06-25 14:16:00 2020-06-25 15:40:00 Emergency Rose De La Paz [facility] 1.2.840.114 350.1.13.10 4.2.7.2.686 [id number] [facility] 2020-06-25 14:16:00 2020-06-25 14:16:00 Emergency X Rose DE LA PAZ [facility] ERT [id number] [facility] 2020-06-25 00:00:00 2020-06-25 00:00:00 Orders Only Doctor Unassigned, [employer] [facility] 1.2.840.114 350.1.13.10 4.2.7.2.686 [id number] 2020-06-25 00:00:00 2020-06-25 00:00:00 Orders Only Doctor Unassigned, [employer] [facility] 1.2.840.114 350.1.13.10 4.2.7.2.686 [id number] [facility] Results Test Description Test Time Test Comments Results Result Co mments Source [facility] GLUCOSE(AGE >30DAYS)2023-09-17 17:33:00* Test Item Value Reference Range Interpretation Comme nts POCT Glu (age>30days) (test code = 3342) 286 mg/dL 70-110 A Lab Interpretation (test cod e = 50450-4) Abnormal [facility] GLUCOSE (AUTOMATED)2023-01-25 16:41:32* Test Item Value Reference Range Interpretation Comme nts POCT GLU (test code = 3125219596) 100 mg/dL 70-110 Lab Interpretation (test cod e = 53006-5) Normal [facility] GLUCOSE (AUTOMATED)2023-01-25 12:46:45* Test Item Value Reference Range Interpretation Comme nts POCT GLU (test code = 6600634758) 95 mg/dL 70-110 Lab Interpretation (test cod e = 96911-6) Normal [facility] GLUCOSE (AUTOMATED)2023-01-25 02:11:01* Test Item Value Reference Range Interpretation Comme nts POCT GLU (test code = 2386788355) 183 mg/dL 70-110 H Notified Provide r Lab Interpretation (test code = 84157-9) Abnormal [facility] GLUCOSE (AUTOMATED)2023-01-24 22:20:55* Test Item Value Reference Range Interpretation Comme nts POCT GLU (test code = 4279108705) 175 mg/dL 70-110 H Lab Interpretation (test cod e = 47480-2) [facility] [id number] 19:45:01* Test Item Value Reference Range Interpretation Comme nts ESR (test code = 83351-9) 63 See_Comment H [Automated messa ge] The system which generated this result transmitted reference range: 0 - 10 mm/HR. The reference range was not used to interpret this result as normal/abnormal. Lab Interpretation (test code = 22953-9) Abnormal [facility] GLUCOSE (AUTOMATED)2023-01-24 16:55:03* Test Item Value Reference Range Interpretation Comme nts POCT GLU (test code = 2778197318) 192 mg/dL 70-110 H Lab Interpretation (test cod e = 98003-4) [facility] [id number] 15:28:57* Test Item Value Reference Range Interpretation Comme nts Case Report (test code = 0841177048) Surgical Pathology ?Case: [id number] ? Authorizing Provider: ?Martha Sharp DPM ? ? Collected: ? 01/21/2023 0850 ?Ordering Location: ? ? [facility] ? ? Received: ?01/21/2023 1120 ? Center ? Pathologist: ? Richard Fritz MD PhD ?Specimens: ? A) - BONE, bone right phalanx ? B) - BONE, bone right metatarsal ? Final Diagnosis (test code = 0733239810) t5ylcNNrTPGml1xdFLPyxGX uZzEwMzNcZnRuYmpcdWMxIH tccnRmMVxlcGljMTAyMDZcY B1ylCazvWp8wVnzOHFzsdM1 cEOqXJiqf7szZLD5g9vzfyx tBHMiDUgoYs5fsLGnnEvyMx FwKNPqPNb2eA66QQUkiQ5lc PIpNGs5IMIozQQfpzUaFsJh HDVctRYwsCO8TWAlJN3guuu nHOtxEQjsLRXvgmA4ZTUeiP TkV6HkLRKiKB4gkpfjTGE6L ZjjALJpSEM4TgMuZRTwk4Oj qqe5VrKsbZKhEKqagAJogzd wzlCmMBKuywNARxGNN49JSP BSSUdIVCBGSUZUSCBQSEFMQ I8MNOCYDC8RD4i0GTScwyKk LSNnZL1jQTEKHAXJXYXvW9R OE2CQEfHoW8tJWNQSEdOXBE WABNUENs7ZRJwUOeMuAFJdS FxwYXIgICAgICAtIEZSQUdN CJ5YQmLVIkVYFLHRDORmHk0 BJCAVDwZpGfuVCk7QDeJGI0 7JNGRIOVCKIFAPD8MUBQepS KOaZPLnUNKrCV8YIONAJKXR IX1IWGBCIZnMQSpUCCCwXYK FTlRJRklFRFxwYXJccGFyIE KmFIYLHpPuSQDOH9vYCAXVX dREXQ4QWEUBLRWYAXmuDNYG H3JWAZzjaFXxHHYqRDFcUCH JOjRJHJGCBXJmC6WcCyaLSu xFIEJPTkVccGFyICAgICAgL MBDKjOMZ9DRILEGJ4FNV21C XAyPPHdSJQdMRY5BCURPYPA tnMVsNDNelnlkMDQiWZM5Yd J1KDDXt2GyaERzBZ3tDLA7I INdg31zUX9YUFJaRgLmTwHj IDEwOjIyIEFNXHBhclxwYXJ vKIMgfx38SVH0EuTal8L1XF EgHoAxJXRsPD5nhMzsXDCuI P3cEQBmL6oxoH7mpyv4ZpKa TWCyLdG0TCFdwqY6Smp4QFG zAYlix0nch9MxK1LfzXYyeU b2r3ziMWXwWnN7jXKyCKnsU 6mcvnVmgYXkNMXpFLs3zLkc HaDrBFIlv7puxeMeMdIbETK kXKSoFCScbQklfgz1tH85JB KkqK5zbMYeMTwahlAdNjT9X LxsIANeVyA6PTFdrKFtROUx W5kpIHKoFAenYNWyUIwygFA cNWJ4zCxxk5N4hZXbsUHzwX mcXpEsJyKmTMGHf9RiCIn4b ZzhM7RoSLEcXoU3eBPhXZWt LCeaFZFxIAKezzE8gA58JJa twfW0rTHyu5Vhc55sz074vQ 1fbJThUOP8PUPtJMFqkDYzW FWhWVA3GKFxoSQjA3eqEOOa LO5llamzOXhyTSdrDVFntMJ 6JKHfxLLaE0VwIGYdRSbvEA Ttsix7VrNsAc9rvTBooTsmD Cxga2dhv6rftUYeDyy1XAQm QjFqRbpoPBpdn2Gvv6kkUYD vey8rIBW7uTLnlGans4C9iE PbJJCpdUDwsmNrHWPaErF6X GxyXX1zak61HAFnUXB5ul3f kMJsbWarjlGxvBUwUIajQ9X xPRTay502ONExI5OtFJTfo2 E6byTbVtFeUCRawPB4rcI3D KApPGc9gJKnyxE7alQzzIGg C4frjH0gTUEfSX4ufluhi6t zUAsxUVsyWXHjnDG7ceT4IV UfuWDcN2UymG0oMQHwXIuqW POunjv4ZmOcQl1rxULmjLpc MFxzYmtwYWdlXHBnbmNvbnR ccGduZGVjXHBsYWluXHBsYW luXGYwXGZzMjRccWxccGxha T8yBtCrTjSaKTijHW9oVQWj S6rftLRlEZFdNFHhN8zjKrU oxE5agUjpEYdyEfJwBfZcCT xwYXIgSSBoYXZlIHBlcnNvb kAumGzaaiO7jKD9JKEeCBhg GEPkCBMhqDUjez3jcCuoDVY vUJ9gQDFppwAzENjghTfjPX phJUN5ZHYjzEQtcQEsoPKhD SBieSByZXNpZGVudHMsIGZl pWxnm9Zls9FjtTO8fC8hs9d jr1CgAZGjdXZ7ZW57ieZ8qM 9fSOMeAP7pEPHuPI0ewSKph KLcGPKtw55epVhumeTmMHWz cnQuXHBsYWluXGYyXGZzMjh cbGFuZzEwMzNcaGljaFxmMl beQdVgQLCjUZtyU8adJjXiL bGkPRxjAGO5kA== Clinical Information (test code = 5048473796) Subacute osteomyelitis of right foot [M86.271] Gross Description (test code = 2737934752) c8oksJEmRPMnoZPQMGPxQIK cLO2oxQjsnWp7tTykDLEqql G2tAVpFIjbj2tuCOS3m4lno uWIRqjwUHUnUK4fKTrhOEWc HF6eYpAbASSuLwNqITGbeGX wdvKkScCpBOSnrSMleCA9NS RqMT6lijhbXWszVXokQZIqw fY4JOHniYIzD1YpPAGpON3d epkqBKR2PBWTOwxtSs1cuNJ ibHtcZjFcZmNoYXJzZXQwXG AqnKzaAXRxLQv0fN6GYfiiN FX8YZKPJylxZdikuJuam0Vz dCBcXHNnIFxcaWQgNTEwMDA rRWjlNfEBWyWyRvN0IzF5Vh ZsToH9JFw8DDZXDHQgTcP3J zD9JyD4YOd7DIPcLF3gINij yRVwZFbtArwxLHeeS836HXr sBQNyP5MkB1JrFIrlJrDrAD qwNCNlJKQoHPfxPXJpX2MOF YJzVdM4SMOcMZByJVp2BYyt W4FAQTYwMJMkGRL5BGi2YrP 2NCo1IWSDRq9vWUl3XvP6JS FbJSF4LPs0TUOhACDzSzCnR OIaHETfOJjzqMRwKK2fdEcd VGMmYK3FLBDjXFxqPIXeKoC xW9MZE3iFWN7xODoxHHRvCQ pccGFyZCANClxwbGFpblxmc xJaIGb8taBhLSJeMkIpNEYz P76jt8VMl6WhAZ6WLGk0wxS aoowmnZ4wJEWprcSuz3VvRE xlcGljWHNhMzAgDQpTcGVja Y4yxiJNLXurFRFpK5MqoaYe YHdpMWRslf3vdDrzGMjvMnX wGEOvo7p3jIN1uCIbhLO3cQ KrdLwlLZ7plZOxIBSNHC53a WJlciAiIGJvbmUgcmlnaHQg hTtxhJWdiCJgIKZtCUWiz59 pvCC0mkDzWkKtwmVxP5vnPH ishTYum9QpgMWyVXKbiqetx QIuv5AthCUwzKLse08oxXV5 lGIigGKoQD7gCWJtnrGnRsS yG70iivYjYKQqEmT3YMUhNM U3EWNjQuUmbBTlshTkG9ogA WdhdGUpLiAgVGhlIHNwZWNp bWVuIGlzIGZpbHRlcmVkIHR tna21T6wpPCBzbH1cc8gbDd ZrIUPhMWWatMDxwSA4ARSwv C4jaH64drPbqcMPYUtdAd8l uC04sG9wIOKnW2FgT2glmNV hbYxryg8YBmrnoNysGeSsnU BuBcU7KTGgiEShMOZ9RX7yn VerFCQhZOu1SVrlJYJaS2Uz F0KfEBpnYhAhADslLIVxHQP mYZeaEUDaG1LOMYFiNeL3TA OmVRKjLEb3RLbnE7WPNFSiR UGiWFU7TKkyKdC2UWw5ZRCP Ev8eYOi9GqF5UFQhDFL1VMy 3OCBcXHQgMiBcXHNzIDMgXF xnwUPcRQ5agPsgBAMeXSBrP NA9XNEwgKLFx6DpUMUmCZmt FtNyHXNVYKELEU8WPnIYLTK kluEOCtbbZPKeLM9LSYEoOI pxPZn4itQmMCWnLjUuGuNjR lxlcGljTmVzdERvYzEgDQpc bHRycGFyXGxpbjBccmluMFx aWiFpSEKcaIHHb0KhHMMUBg NwZWNpbWVuIEIgaXMgcmVjZ Vr2GOXfjU0kAa9cmEDhlX9c tKRcEWjcJYE4nOGrDBZuGIX aCMGsHA31R9AonfNeAWtwUL dxllDlYyNzPSPbIj7gYPWea JrmgXYxOPJdsDLfy1CnCddi PU7vJIDnhhVgf2SkZT9rPZO tnF3rwrdravVvDBX8IW2uaC OatD50EUgakX3yaoagV5haW IDqfsKzNqTlX86hngSnOMkl ApaagSMnBiKgmPNqIaRgB92 nWS2bSKKhQHI0VMNvZcD9GR AuNiBjbSkuICBUaGUgZmlyc 4TdcRFpt6RiHQCaKsTbN52q syWigQSqDWPoH5wxLX1qwAM 3atZwi7TpqSJaMRVti4HugX nexyFhTMEooS2sJE1rKUBmM 0ima9tcVWYnleUlfIujLAJo S66uBKAvLRTgpQQoJYRrmrC nbWVudCBoYXMgYSBjbGVhbm c7RAMvTC3tKIM9PWTil0VxK iWiCCZevvBmpbDjv0btCKCj oBPrp2b6ZLMtBAEkaHouXV3 fVPXby66oAJS0wuEdF0MrSR DXeGThx2Ipz48kOO6xBTX4b gPvUMGmMXmkWJ23DApdJUXp yzwliQg8XHVhY2Qaj80nMSV 0byByZXZlYWwgdGFuLXllbG utmrPntACjYBB3pVGnsWVgX WRfza5yALTmZFMakUEksN9x uhAxmkPjhOPitCF4CDBhZN1 9tKPscBqfhY7dCiFlJyOwNN BnqZuch7kfWfLfQRAodRIqY fujBNEhw86yURJdxoTIKdzh AbSoZHSkN2ymEpWyXVoibDT dAZ8WI4FqrHbrxvRuj4VeHg utAGAcTXxVDHeiMlwvx6Oek GNxu7CuTIOtSvKuB29wlsBq NZgdPSEsaK9obNFoMK3ZUbD iWtQ3DCZdE07wZFImTKLlwR PsJMOgquWtcLLngFznu8Ymj LEnkRvch7WaiAoeqdMzOUua pFFkokb2GMCcSV4bWTV2XWI qv5ClQvNpNXRrcsrcCAFiqG VtKYxaBZJrWQjbbOPuHC3JW MAcAiBeCLWnF4nwLHDuLW6L JMDsgPIWLXori1FkZQzqAAN qPDZEN7DgPLgqWDKmT18vb2 IKb7Pmc2zvcTing9AnaXGzI B84IZPruHGgFYK2QB7fhRyr YXIgDQpccGFyZCANCn0= Disclaimer (test code = 8793803588) k1bhpFFfGNXsy3icAWHllDQ uZzEwMzNcZnRuYmpcdWMxIH cisyQsMKkxf9VuA7DzNeDiG FxhbnNpXGRlZmxhbmcxMDMz OYC7ryIzNURuXUbxPOUmUCq eCf2raXHceYhhEyCdOCCaz8 uwtxEVXEyhAqViE768BGSlN Fkyt7ate6YpCDUnuCQyo5B9 NYFFyqglrDh2wDxcM14vg2B 5YavgL8jlQOZkOCWpP0YlFS 1oMHRfUqw9IPY0UGM0JPNuE XGiM0AfGK8lBTNqlFRjHWr3 k2kmmExlYMAoUQO9w1kqSLl fjqScKN8zuv5qmAs1z7olwp PrAWZsFZMymDWOGRMvM0Hqj PorVx2uqIm0wXdjTxhyOJT7 Efq6IX9oid64ild4nXshIFZ zozsbWcU8KMkpUXZhucmtUY s1YBmiDAJdwBT9ZPAqpADiU 4SmGDLlXX6yfmk0WLW4XUad ZSPqKpB1JNEycDQdUKUayNy jFKuvx801ZVD2BxHjOH7nM3 Ygb5T5wN7jaKEsZQLcnNJyC jLfHOFsbq2siDXjRYysa4Mq GAD2luF5wGVpuPMxAYRxMD4 2Eczgs5QzSkijm0ZwU51gfW U6VCxsd9rmJT3lCbI1mzVuB Nlpe2eqfS5rHlA9JNxcSR2c IG9uHCYyrX5vigyaIZLwEwX iwmlpERKutCuytvKuBl3psO ncLBU7RDzzY8azbQ1hUtQ2Y JqfP4kecK3uHKv7AMarrJV0 DAWxmM4kBJ4frwekt0nhNBh xAKiuNPYrbgG9wxY5FPXvoC EyW5ZisS8lYJVuTF3kmlrbq 6ksOHF2HJioPRYyWLP6YdSi MMTfb1Acppb9TcQpr4MfyOS eQBbcV87ls071SUNjjxGvD2 xwbGFpblxwbGFpblxmMFxmc eW9PXQiceNkz8BxGSSoLWA4 MIotUHtciBNbAZZhsAnxd0m sH1DsrJIjNUWrXNknLZBuOX ZzMjBcbGFuZzEwMzNcaGlja InuJRldFhYlDWIlODxgW0rb KnLaJ5WkZFJaDxWqgOYnG2g aKVcjuaZcJHVducDanLG5RL tjF9s5AGMvjhRjeDx9rzJkJ jWhBLSeKOF7MTglxTMaEYDz c9NbqrnbsZPrTn3saCRjXUB mtC9vSYBxGHKnGUwkAF0tpW b0GBWFcLPckULsBkZBJQMkE K57hfPlXGTQpixww6T5MBry QTRfw6GheYKtQ2mwz4KhHQP ts98iYT5dh8F8i9oiTFJ1GT 3pz9FbPUQujNQvyMKzOASib 4Sowumxn7OaJMSvciYxe6Cy ZCBhbmQgaXRzIHBlcmZvcm1 wsmTzTKSrCFPrL9QhhynonN oagaIcIUXzwc2gugGtYPK1C POIVKBpXDIvy7VhlY8nkWRG VIU3pANkcp2pzgDZjHCbNGA irs93DZUlZM2cC1zcIFDgYT OycyRrtETdk7WxUBWhwYD7v LQtOU6LPaHNz67zRLWmSSMK lbAgUJIxrRmrfSL7zoU1aX4 uIChGREEpLlx+IFRoZSBGRE OtXU2navXnd3ZletFczVvmS CSfuWLsa6JjfPWou4McmWrp l6BsmZDchWHhJI3kBBVyfgl fEQXfOGKNIoULUPVskpP5m7 IvEEStEAYcQBG8dNihjcs9P LNgsM8fGMYxE0uapqlzOBag YKAop8GetK4wzSTJzZWrl9I mgUDnrRPHaPQeCR2kszJiIP eDJZtCHNL6qaWfGOCzu5AxQ WoyS5gdX38duJrwiAr8nZI5 ASA0vK0dVbi+IFxwYXJccGF yIEFwcHJvcHJpYXRlbHkgcm KwO6OwqmGunN8xgFMihdIvO M5wPI5hS5A3iPJoHHGcymEh g8gmEFjlsiTrHyFebiStSJD fYOncAGSyr0QiRCogXDO9VG lucyBpbmNsdWRpbmcgSCZFL SHUtHSfaEQyHUM6FKwngxXn nvJtBZ9tjQ5efGwkdI0mwAD inHK2ylfvBIOxJBWckCveZW CjBX4joXDeDFMuqyKZjBrsz ZRrnC9dN3FjARUkVLZajo1d LDDgcX3yNXxma4CiejbeAQW hWBAyWKYxbpAnry3gDOZanY LYKP0FPFoeiUGmh4TzzvSuR 6tSUBR8IIBoBkDkWqxxGSFb dWFjtTMzLQAjwx20WVXktB5 ziYxxPHEquC8xhT0jmCinnE 7uSsMeFjUgJGvfZZ5eKUPtQ 6athKLjUECyQWQwQ3frCsEy xD1siBprRVfdKkYoBrYwHXd xYWJ6pF== Embedded Images (test code = 9997573138) [facility] GLUCOSE (AUTOMATED)2023-01-24 12:44:49* Test Item Value Reference Range Interpretation Comme nts POCT GLU (test code = 7571797392) 118 mg/dL 70-110 H Lab Interpretation (test cod e = 83863-3) [facility] 01:58:32* Test Item Value Reference Range Interpretation Comme nts POCT GLU (test code = 7926463858) 189 mg/dL 70-110 H Lab Interpretation (test cod e = 04697-8) [facility] 21:37:40* Test Item Value Reference Range Interpretation Comme nts POCT GLU (test code = 5391125285) 202 mg/dL 70-110 H Lab Interpretation (test cod e = 28003-7) [facility] 16:53:23* Test Item Value Reference Range Interpretation Comme nts POCT GLU (test code = 7975686370) 131 mg/dL 70-110 H Lab Interpretation (test cod e = 30317-0) Abnormal [facility] GLUCOSE (AUTOMATED)2023-01-23 12:08:05* Test Item Value Reference Range Interpretation Comme nts POCT GLU (test code = 9929921308) 122 mg/dL 70-110 H Lab Interpretation (test cod e = 93713-9) [facility] 02:01:07* Test Item Value Reference Range Interpretation Comme nts POCT GLU (test code = 3337268483) 174 mg/dL 70-110 H Lab Interpretation (test cod e = 22267-5) [facility] 22:16:14* Test Item Value Reference Range Interpretation Comme nts POCT GLU (test code = 9142061261) 157 mg/dL 70-110 H Lab Interpretation (test cod e = 07671-7) [facility] 16:15:57* Test Item Value Reference Range Interpretation Comme nts POCT GLU (test code = 6484478388) 113 mg/dL 70-110 H Lab Interpretation (test cod e = 79363-6) Abnormal [facility] GLUCOSE (AUTOMATED)2023-01-22 16:15:57* Test Item Value Reference Range Interpretation Comme nts POCT GLU (test code = 3788888801) 113 mg/dL 70-110 H Lab Interpretation (test cod e = 23417-2) Abnormal [facility] GLUCOSE (AUTOMATED)2023-01-22 12:24:40* Test Item Value Reference Range Interpretation Comme nts POCT GLU (test code = 3449893729) 95 mg/dL 70-110 Lab Interpretation (test cod e = 84641-9) Normal [facility] GLUCOSE (AUTOMATED)2023-01-22 12:24:40* Test Item Value Reference Range Interpretation Comme nts POCT GLU (test code = 2539335074) 95 mg/dL 70-110 Lab Interpretation (test cod e = 02800-3) Normal [facility] CULTURE [id number] 02:01:45* Test Item Value Reference Range Interpretation Comme nts Blood Culture-Aerobic (test code = 82312-5) No organisms isolated No growth Previous preliminary verified result was Culture In Progress on 01/17/2023 at 0001 CDTPrevious preliminary verified result was No growth at 24 hours on 01/17/2023 at 2101 CDTPrevious preliminary verified result was No growth at 48 hours on 01/18/2023 at 2101 CDTPrevious preliminary verified result was No growth at 72 hours on 01/19/2023 at 2101 CDT Blood Culture-Anaerobic (test code = 83692-4) No organisms isolated No growth Previous preliminary verified result was Culture In Progress on 01/17/2023 at 0001 CDTPrevious preliminary verified result was No growth at 24 hours on 01/17/2023 at 2101 CDTPrevious preliminary verified result was No growth at 48 hours on 01/18/2023 at 2101 CDTPrevious preliminary verified result was No growth at 72 hours on 01/19/2023 at 2101 CDT Lab Interpretation (test code = 58924-8) Normal [facility] CULTURE [id number] 02:01:45* Test Item Value Reference Range Interpretation Comme nts Blood Culture-Aerobic (test code = 32821-4) No organisms isolated No growth Previous preliminary verified result was Culture In Progress on 01/17/2023 at 0001 CDTPrevious preliminary verified result was No growth at 24 hours on 01/17/2023 at 2101 CDTPrevious preliminary verified result was No growth at 48 hours on 01/18/2023 at 2101 CDTPrevious preliminary verified result was No growth at 72 hours on 01/19/2023 at 210 CDT Blood Culture-Anaerobic (test code = 38733-7) No organisms isolated No growth Previous preliminary verified result was Culture In Progress on 01/17/2023 at 0001 CDTPrevious preliminary verified result was No growth at 24 hours on 01/17/2023 at 2101 CDTPrevious preliminary verified result was No growth at 48 hours on 01/18/2023 at 2101 CDTPrevious preliminary verified result was No growth at 72 hours on 01/19/2023 at 210 CDT Lab Interpretation (test code = 38073-3) [facility] CULTURE [id number] 02:01:45* Test Item Value Reference Range Interpretation Comme nts Blood Culture-Aerobic (test code = 12331-6) No organisms isolated No growth Previous preliminary verified result was Culture In Progress on 01/17/2023 at 2236 CDTPrevious preliminary verified result was No growth at 24 hours on 01/17/2023 at 2101 CDTPrevious preliminary verified result was No growth at 48 hours on 01/18/2023 at 210 CDTPrevious preliminary verified result was No growth at 72 hours on 01/19/2023 at 2100 CDT Blood Culture-Anaerobic (test code = 13353-6) No organisms isolated No growth Previous preliminary verified result was Culture In Progress on 01/17/2023 at 2236 CDTPrevious preliminary verified result was No growth at 24 hours on 01/17/2023 at 210 CDTPrevious preliminary verified result was No growth at 48 hours on 01/18/2023 at 2101 CDTPrevious preliminary verified result was No growth at 72 hours on 01/19/2023 at 2101 CDT Lab Interpretation (test code = 04888-0) [facility] CULTURE [id number] 02:01:45* Test Item Value Reference Range Interpretation Comme nts Blood Culture-Aerobic (test code = 38690-5) No organisms isolated No growth Previous preliminary verified result was Culture In Progress on 01/17/2023 at 0001 CDTPrevious preliminary verified result was No growth at 24 hours on 01/17/2023 at 2101 CDTPrevious preliminary verified result was No growth at 48 hours on 01/18/2023 at 2101 CDTPrevious preliminary verified result was No growth at 72 hours on 01/19/2023 at 2101 CDT Blood Culture-Anaerobic (test code = 25583-4) No organisms isolated No growth Previous preliminary verified result was Culture In Progress on 01/17/2023 at 0001 CDTPrevious preliminary verified result was No growth at 24 hours on 01/17/2023 at 2101 CDTPrevious preliminary verified result was No growth at 48 hours on 01/18/2023 at 2101 CDTPrevious preliminary verified result was No growth at 72 hours on 01/19/2023 at 2101 CDT Lab Interpretation (test code = 25078-3) Normal [facility] GLUCOSE (AUTOMATED)2023-01-22 01:31:41* Test Item Value Reference Range Interpretation Comme nts POCT GLU (test code = 6301517818) 149 mg/dL 70-110 H Lab Interpretation (test cod e = 46758-9) Abnormal [facility] GLUCOSE (AUTOMATED)2023-01-22 01:31:41* Test Item Value Reference Range Interpretation Comme nts POCT GLU (test code = 9811061397) 149 mg/dL 70-110 H Lab Interpretation (test cod e = 18816-2) Abnormal [facility] GLUCOSE (AUTOMATED)2023-01-21 22:11:04* Test Item Value Reference Range Interpretation Comme nts POCT GLU (test code = 2771248785) 135 mg/dL 70-110 H Lab Interpretation (test cod e = 33242-8) Abnormal [facility] GLUCOSE (AUTOMATED)2023-01-21 22:11:04* Test Item Value Reference Range Interpretation Comme nts POCT GLU (test code = 1152723669) 135 mg/dL 70-110 H Lab Interpretation (test cod e = 48172-8) Abnormal [facility] GLUCOSE (AUTOMATED)2023-01-21 17:12:33* Test Item Value Reference Range Interpretation Comme nts POCT GLU (test code = 6605747152) 198 mg/dL 70-110 H Lab Interpretation (test cod e = 36023-8) Abnormal [facility] GLUCOSE (AUTOMATED)2023-01-21 17:12:33* Test Item Value Reference Range Interpretation Comme nts POCT GLU (test code = 3752974380) 198 mg/dL 70-110 H Lab Interpretation (test cod e = 21590-9) [facility] 12:20:31* Test Item Value Reference Range Interpretation Comme nts POCT GLU (test code = 7008577946) 115 mg/dL 70-110 H Lab Interpretation (test cod e = 85872-0) Abnormal [facility] GLUCOSE (AUTOMATED)2023-01-21 12:20:31* Test Item Value Reference Range Interpretation Comme nts POCT GLU (test code = 8872098769) 115 mg/dL 70-110 H Lab Interpretation (test cod e = 82937-3) Abnormal [facility] GLUCOSE (AUTOMATED)2023-01-21 01:37:46* Test Item Value Reference Range Interpretation Comme nts POCT GLU (test code = 2326321432) 166 mg/dL 70-110 H Lab Interpretation (test cod e = 44911-5) Abnormal [facility] GLUCOSE (AUTOMATED)2023-01-21 01:37:46* Test Item Value Reference Range Interpretation Comme nts POCT GLU (test code = 9399856553) 166 mg/dL 70-110 H Lab Interpretation (test cod e = 54849-6) Abnormal [facility] GLUCOSE (AUTOMATED)2023-01-20 21:42:22* Test Item Value Reference Range Interpretation Comme nts POCT GLU (test code = 1067793568) 219 mg/dL 70-110 H Lab Interpretation (test cod e = 32834-7) Abnormal [facility] GLUCOSE (AUTOMATED)2023-01-20 21:42:22* Test Item Value Reference Range Interpretation Comme nts POCT GLU (test code = 8708322431) 219 mg/dL 70-110 H Lab Interpretation (test cod e = 45290-7) Abnormal [facility] GLUCOSE (AUTOMATED)2023-01-20 16:56:11* Test Item Value Reference Range Interpretation Comme nts POCT GLU (test code = 9636383946) 176 mg/dL 70-110 H Lab Interpretation (test cod e = 75875-9) Abnormal [facility] GLUCOSE (AUTOMATED)2023-01-20 16:56:11* Test Item Value Reference Range Interpretation Comme nts POCT GLU (test code = 8918689414) 176 mg/dL 70-110 H Lab Interpretation (test cod e = 52484-9) Abnormal [facility] GLUCOSE (AUTOMATED)2023-01-20 12:46:22* Test Item Value Reference Range Interpretation Comme nts POCT GLU (test code = 6123697578) 153 mg/dL 70-110 H Lab Interpretation (test cod e = 73833-8) Abnormal [facility] GLUCOSE (AUTOMATED)2023-01-20 12:46:22* Test Item Value Reference Range Interpretation Comme nts POCT GLU (test code = 9890540650) 153 mg/dL 70-110 H Lab Interpretation (test cod e = 79276-3) Abnormal [facility] GLUCOSE (AUTOMATED)2023-01-20 01:50:29* Test Item Value Reference Range Interpretation Comme nts POCT GLU (test code = 1218018939) 198 mg/dL 70-110 H Lab Interpretation (test cod e = 36061-7) Abnormal [facility] GLUCOSE (AUTOMATED)2023-01-20 01:50:29* Test Item Value Reference Range Interpretation Comme nts POCT GLU (test code = 9995207815) 198 mg/dL 70-110 H Lab Interpretation (test cod e = 18096-2) Abnormal [facility] GLUCOSE (AUTOMATED)2023-01-19 22:56:29* Test Item Value Reference Range Interpretation Comme nts POCT GLU (test code = 3626076170) 180 mg/dL 70-110 H Lab Interpretation (test cod e = 03649-3) Abnormal [facility] GLUCOSE (AUTOMATED)2023-01-19 22:56:29* Test Item Value Reference Range Interpretation Comme nts POCT GLU (test code = 2252819697) 180 mg/dL 70-110 H Lab Interpretation (test cod e = 94350-8) Abnormal [facility] GLUCOSE (AUTOMATED)2023-01-19 16:54:55* Test Item Value Reference Range Interpretation Comme nts POCT GLU (test code = 2812520637) 123 mg/dL 70-110 H Lab Interpretation (test cod e = 05942-0) Abnormal [facility] GLUCOSE (AUTOMATED)2023-01-19 16:54:55* Test Item Value Reference Range Interpretation Comme nts POCT GLU (test code = 0633449909) 123 mg/dL 70-110 H Lab Interpretation (test cod e = 69686-4) Abnormal [facility] GLUCOSE (AUTOMATED)2023-01-19 12:50:07* Test Item Value Reference Range Interpretation Comme nts POCT GLU (test code = 6770124199) 128 mg/dL 70-110 H Lab Interpretation (test cod e = 09314-8) Abnormal [facility] GLUCOSE (AUTOMATED)2023-01-19 12:50:07* Test Item Value Reference Range Interpretation Comme nts POCT GLU (test code = 6180400906) 128 mg/dL 70-110 H Lab Interpretation (test cod e = 90231-5) [facility] Test Item Value Reference Range Interpretation Comme nts PHOSPHORUS (test code = 3828877791) 4.9 mg/dL 2.5-5.0 Lab Interpretation (test cod e = 66700-5) [facility] 09:[facility]:42* Test Item Value Reference Range Interpretation Comme nts PHOSPHORUS (test code = 1196871694) 4.9 mg/dL 2.5-5.0 Lab Interpretation (test cod e = 34518-9) [facility]* Test Item Value Reference Range Interpretation Comme nts MAGNESIUM (test code = 0927173271) 1.9 mg/dL 1.7-2.4 Lab Interpretation (test cod e = 59407-5) Normal [facility] METABOLIC PANEL (NA, K, CL, CO2, GLUCOSE, BUN, CREATININE, CA)2023-01-19 09:48:41* Test Item Value Reference Range Interpretation Comme nts NA (test code = 5977637162) 137 mmol/L 135-145 K (test code = 7062150071) 3.9 mmol/L 3.5-5.0 CL (test code = 5077697005) 107 mmol/L 98-108 CO2 TOTAL (test code = 0746311407) 25 mmol/L 23-31 AGAP (test code = 6659292910) 5 2-16 BUN (test code = 7741842030) 30 mg/dL 7-23 H GLUCOSE (test code = 5880844404) 133 mg/dL 70-110 H CREATININE (test code = 1171950569) 1.52 mg/dL 0.60-1.25 H CALCIUM (test code = 4482491659) 8.9 mg/dL 8.6-10.6 eGFR (test code = 5061851140) 47.3 mL/min/1.73m2 SHIKHA (test code = SHIKHA) Association of Glomerular Filtration Rate (GFR) and Staging of Kidney Disease* + --+ --+ ------+| GFR (mL/min/1.73 m2) ?| With Kidney Damage ?| ?Without Kidney Damage+ --------+ --------+ +| ?>90 ?| ?Stage one ?| ? Normal ?+ ---+ ---+ -------+| ?60-89 ?| ?Stage two ?| ? Decreased GFR ? + --+ --+ ------+| ?30-59 ?| ?Stage three ?| ? Stage three ? + --+ --+ ------+| ?15-29 ?| ?Stage four ? | ? Stage four ?+ ---+ ---+ -------+| ?<15 (or dialysis) ? ?| ?Stage five ? | ? Stage five ?+ ---+ ---+ -------+ *Each stage assumes the associated GFR level has been in effect for at least three months. ?Stages 1 to 5, with or without kidney disease, indicate chronic kidney disease. Notes: Determination of stages one and two (with eGFR >59mL/min/1.73 m2) requires estimation of kidney damage for at least three months as defined by structural or functional abnormalities of the kidney, manifested by either:Pathological abnormalities or Markers of kidney damage (including abnormalities in the composition of the blood or urine or abnormalities in imaging tests). Lab Interpretation (test code = 16784-0) [facility] Test Item Value Reference Range Interpretation Comme nts MAGNESIUM (test code = 0474057613) 1.9 mg/dL 1.7-2.4 Lab Interpretation (test cod e = 90846-2) Normal [facility] METABOLIC PANEL (NA, K, CL, CO2, GLUCOSE, BUN, CREATININE, [place])2023-01-19 09:48:41* Test Item Value Reference Range Interpretation Comme nts NA (test code = 5360853120) 137 mmol/L 135-145 K (test code = 1424249984) 3.9 mmol/L 3.5-5.0 CL (test code = 5248436150) 107 mmol/L 98-108 CO2 TOTAL (test code = 7161685163) 25 mmol/L 23-31 AGAP (test code = 7317415126) 5 2-16 BUN (test code = 2141771481) 30 mg/dL 7-23 H GLUCOSE (test code = 7210529869) 133 mg/dL 70-110 H CREATININE (test code = 8793914512) 1.52 mg/dL 0.60-1.25 H CALCIUM (test code = 8972432724) 8.9 mg/dL 8.6-10.6 eGFR (test code = 5957659689) 47.3 mL/min/1.73m2 SHIKHA (test code = SHIKHA) Association of Glomerular Filtration Rate (GFR) and Staging of Kidney Disease* + --+ --+ ------+| GFR (mL/min/1.73 m2) ?| With Kidney Damage ?| ?Without Kidney Damage+ --------+ --------+ +| ?>90 ?| ?Stage one ?| ? Normal ?+ ---+ ---+ -------+| ?60-89 ?| ?Stage two ?| ? Decreased GFR ? + --+ --+ ------+| ?30-59 ?| ?Stage three ?| ? Stage three ? + --+ --+ ------+| ?15-29 ?| ?Stage four ? | ? Stage four ?+ ---+ ---+ -------+| ?<15 (or dialysis) ? ?| ?Stage five ? | ? Stage five ?+ ---+ ---+ -------+ *Each stage assumes the associated GFR level has been in effect for at least three months. ?Stages 1 to 5, with or without kidney disease, indicate chronic kidney disease. Notes: Determination of stages one and two (with eGFR >59mL/min/1.73 m2) requires estimation of kidney damage for at least three months as defined by structural or functional abnormalities of the kidney, manifested by either:Pathological abnormalities or Markers of kidney damage (including abnormalities in the composition of the blood or urine or abnormalities in imaging tests). Lab Interpretation (test code = 82422-7) Abnormal [facility] WITH [id number] 09:20:04* Test Item Value Reference Range Interpretation Comme nts WBC (test code = 6690-2) 6.34 See_Comment [Automated [employer]] The system which generated this result transmitted reference range: 4.20 - 10.70 10*3/?L. The reference range was not used to interpret this result as normal/abnormal. RBC (test code = 789-8) 3.52 See_Comment L [Automated [employer]] The system which generated this result transmitted reference range: 4.26 - 5.52 10*6/?L. The reference range was not used to interpret this result as normal/abnormal. HGB (test code = 718-7) 10.0 g/dL 12.2-16.4 L HCT (test code = 4544-3) 31.1 % 38.4-49.3 L MCV (test code = 787-2) 88.4 fL 81.7-95.6 MCH (test code = 785-6) 28.4 pg 26.1-32.7 MCHC (test code = 786-4) 32.2 g/dL 31.2-35.0 RDW-SD (test code = 74091-0) 44.5 fL 38.5-51.6 RDW-CV (test code = 788-0) 13.8 % 12.1-15.4 PLT (test code = 777-3) 265 See_Comment [Automated [employer]] The system which generated this result transmitted reference range: 150 - 328 10*3/?L. The reference range was not used to interpret this result as normal/abnormal. MPV (test code = 13034-9) 10.7 fL 9.8-13.0 NRBC/100 WBC (test code = 3975354545) 0.0 See_Comment [Automated me ssage] The system which generated this result transmitted reference range: 0.0 - 10.0 /100 WBCs. The reference range was not used to interpret this result as normal/abnormal. NRBC x10^3 (test code = 2539984436) See_Comment [Automated messa ge] The system which generated this result transmitted reference range: 10*3/?L. The reference range was not used to interpret this result as normal/abnormal. GRAN MAT (NEUT) % (test code = 770-8) 44.9 % IMM GRAN % (test code = 7885991593) 0.20 % LYMPH % (test code = 736-9) 37.4 % MONO % (test code = 5905-5) 9.3 % EOS % (test code = 713-8) 6.6 % BASO % (test code = 706-2) 1.6 % GRAN MAT x10^3(ANC) (test code = 9488369431) 2.85 10*3/uL 1.99-6.95 IMM GRAN x10^3 (test code = 3046153512) 0.00-0.06 LYMPH x10^3 (test code = 731-0) 2.37 10*3/uL 1.09-3.23 MONO x10^3 (test code = 742-7) 0.59 10*3/uL 0.36-1.02 EOS x10^3 (test code = 711-2) 0.42 10*3/uL 0.06-0.53 BASO x10^3 (test code = 704-7) 0.10 10*3/uL 0.01-0.09 H Lab Interpretation (test code = 21541-7) Abnormal [facility] WITH [id number] 09:20:04* Test Item Value Reference Range Interpretation Comme nts WBC (test code = 6690-2) 6.34 See_Comment [Automated messa ge] The system which generated this result transmitted reference range: 4.20 - 10.70 10*3/?L. The reference range was not used to interpret this result as normal/abnormal. RBC (test code = 789-8) 3.52 See_Comment L [Automated messa ge] The system which generated this result transmitted reference range: 4.26 - 5.52 10*6/?L. The reference range was not used to interpret this result as normal/abnormal. HGB (test code = 718-7) 10.0 g/dL 12.2-16.4 L HCT (test code = 4544-3) 31.1 % 38.4-49.3 L MCV (test code = 787-2) 88.4 fL 81.7-95.6 MCH (test code = 785-6) 28.4 pg 26.1-32.7 MCHC (test code = 786-4) 32.2 g/dL 31.2-35.0 RDW-SD (test code = 21501-7) 44.5 fL 38.5-51.6 RDW-CV (test code = 788-0) 13.8 % 12.1-15.4 PLT (test code = 777-3) 265 See_Comment [Automated [employer]] The system which generated this result transmitted reference range: 150 - 328 10*3/?L. The reference range was not used to interpret this result as normal/abnormal. MPV (test code = 59683-2) 10.7 fL 9.8-13.0 NRBC/100 WBC (test code = 1425579555) 0.0 See_Comment [Automated Fronto ssage] The system which generated this result transmitted reference range: 0.0 - 10.0 /100 WBCs. The reference range was not used to interpret this result as normal/abnormal. NRBC x10^3 (test code = 8376240988) See_Comment [Automated [employer]] The system which generated this result transmitted reference range: 10*3/?L. The reference range was not used to interpret this result as normal/abnormal. GRAN MAT (NEUT) % (test code = 770-8) 44.9 % IMM GRAN % (test code = 1762818884) 0.20 % LYMPH % (test code = 736-9) 37.4 % MONO % (test code = 5905-5) 9.3 % EOS % (test code = 713-8) 6.6 % BASO % (test code = 706-2) 1.6 % GRAN MAT x10^3(ANC) (test code = 0233046030) 2.85 10*3/uL 1.99-6.95 IMM GRAN x10^3 (test code = 5636150139) 0.00-0.06 LYMPH x10^3 (test code = 731-0) 2.37 10*3/uL 1.09-3.23 MONO x10^3 (test code = 742-7) 0.59 10*3/uL 0.36-1.02 EOS x10^3 (test code = 711-2) 0.42 10*3/uL 0.06-0.53 BASO x10^3 (test code = 704-7) 0.10 10*3/uL 0.01-0.09 H Lab Interpretation (test code = 44067-7) Abnormal [facility] GLUCOSE (AUTOMATED)2023-01-19 01:22:17* Test Item Value Reference Range Interpretation Comme nts POCT GLU (test code = 6244266992) 164 mg/dL 70-110 H Lab Interpretation (test cod e = 54062-2) Abnormal [facility] GLUCOSE (AUTOMATED)2023-01-19 01:22:17* Test Item Value Reference Range Interpretation Comme nts POCT GLU (test code = 6597419786) 164 mg/dL 70-110 H Lab Interpretation (test cod e = 01673-8) Abnormal [facility] GLUCOSE (AUTOMATED)2023-01-18 21:51:49* Test Item Value Reference Range Interpretation Comme nts POCT GLU (test code = 5959628788) 188 mg/dL 70-110 H Lab Interpretation (test cod e = 39141-5) Abnormal [facility] GLUCOSE (AUTOMATED)2023-01-18 21:51:49* Test Item Value Reference Range Interpretation Comme nts POCT GLU (test code = 5764640313) 188 mg/dL 70-110 H Lab Interpretation (test cod e = 81144-8) Abnormal [facility] GLUCOSE (AUTOMATED)2023-01-18 17:39:13* Test Item Value Reference Range Interpretation Comme nts POCT GLU (test code = 5566589903) 137 mg/dL 70-110 H Lab Interpretation (test cod e = 16092-6) Abnormal [facility] GLUCOSE (AUTOMATED)2023-01-18 17:39:13* Test Item Value Reference Range Interpretation Comme nts POCT GLU (test code = 3867254952) 137 mg/dL 70-110 H Lab Interpretation (test cod e = 75702-2) Abnormal [facility] GLUCOSE (AUTOMATED)2023-01-18 13:22:16* Test Item Value Reference Range Interpretation Comme nts POCT GLU (test code = 8491553870) 123 mg/dL 70-110 H Lab Interpretation (test cod e = 57108-1) Abnormal [facility] GLUCOSE (AUTOMATED)2023-01-18 13:22:16* Test Item Value Reference Range Interpretation Comme nts POCT GLU (test code = 2572227347) 123 mg/dL 70-110 H Lab Interpretation (test cod e = 57694-4) Abnormal [facility] GLUCOSE (AUTOMATED)2023-01-18 02:14:12* Test Item Value Reference Range Interpretation Comme nts POCT GLU (test code = 1517776657) 190 mg/dL 70-110 H Lab Interpretation (test cod e = 07728-1) Abnormal [facility] GLUCOSE (AUTOMATED)2023-01-18 02:14:12* Test Item Value Reference Range Interpretation Comme nts POCT GLU (test code = 4666475680) 190 mg/dL 70-110 H Lab Interpretation (test cod e = 67886-7) Abnormal [facility] GLUCOSE (AUTOMATED)2023-01-17 22:23:15* Test Item Value Reference Range Interpretation Comme nts POCT GLU (test code = 5051967107) 178 mg/dL 70-110 H Lab Interpretation (test cod e = 13561-9) Abnormal [facility] GLUCOSE (AUTOMATED)2023-01-17 22:23:15* Test Item Value Reference Range Interpretation Comme nts POCT GLU (test code = 4312911082) 178 mg/dL 70-110 H Lab Interpretation (test cod e = 43952-4) Abnormal [facility] GLUCOSE (AUTOMATED)2023-01-17 17:05:22* Test Item Value Reference Range Interpretation Comme nts POCT GLU (test code = 4485080610) 179 mg/dL 70-110 H Lab Interpretation (test cod e = 77400-3) Abnormal [facility] GLUCOSE (AUTOMATED)2023-01-17 17:05:22* Test Item Value Reference Range Interpretation Comme nts POCT GLU (test code = 0187706734) 179 mg/dL 70-110 H Lab Interpretation (test cod e = 85788-6) Abnormal [facility] GLUCOSE (AUTOMATED)2023-01-17 13:31:16* Test Item Value Reference Range Interpretation Comme nts POCT GLU (test code = 6404307779) 195 mg/dL 70-110 H Lab Interpretation (test cod e = 95636-7) Abnormal [facility] GLUCOSE (AUTOMATED)2023-01-17 13:31:16* Test Item Value Reference Range Interpretation Comme nts POCT GLU (test code = 0678518397) 195 mg/dL 70-110 H Lab Interpretation (test cod e = 64525-5) Abnormal [facility] METABOLIC PANEL (NA, K, CL, CO2, GLUCOSE, BUN, CREATININE, [place])2023-01-17 10:58:32* Test Item Value Reference Range Interpretation Comme [facility] NA (test code = 4154853699) 136 mmol/L 135-145 K (test code = 0550926295) 4.0 mmol/L 3.5-5.0 CL (test code = 5076343644) 106 mmol/L 98-108 CO2 TOTAL (test code = 5958616968) 24 mmol/L 23-31 AGAP (test code = 8363776905) 6 2-16 BUN (test code = 1724420293) 22 mg/dL 7-23 GLUCOSE (test code = 7466358214) 175 mg/dL 70-110 H CREATININE (test code = 9875254841) 1.06 mg/dL 0.60-1.25 CALCIUM (test code = 9187660604) 8.7 mg/dL 8.6-10.6 eGFR (test code = 2039269745) 71.8 mL/min/1.73m2 SHIKHA (test code = SHIKHA) Association of Glomerular Filtration Rate (GFR) and Staging of Kidney Disease* + --+ --+ ------+| GFR (mL/min/1.73 m2) ?| With Kidney Damage ?| ?Without Kidney Damage+ --------+ --------+ +| ?>90 ?| ?Stage one ?| ? Normal ?+ ---+ ---+ -------+| ?60-89 ?| ?Stage two ?| ? Decreased GFR ? + --+ --+ ------+| ?30-59 ?| ?Stage three ?| ? Stage three ? + --+ --+ ------+| ?15-29 ?| ?Stage four ? | ? Stage four ?+ ---+ ---+ -------+| ?<15 (or dialysis) ? ?| ?Stage five ? | ? Stage five ?+ ---+ ---+ -------+ *Each stage assumes the associated GFR level has been in effect for at least three months. ?Stages 1 to 5, with or without kidney disease, indicate chronic kidney disease. Notes: Determination of stages one and two (with eGFR >59mL/min/1.73 m2) requires estimation of kidney damage for at least three months as defined by structural or functional abnormalities of the kidney, manifested by either:Pathological abnormalities or Markers of kidney damage (including abnormalities in the composition of the blood or urine or abnormalities in imaging tests). Lab Interpretation (test code = 26379-6) Abnormal [facility] METABOLIC PANEL (NA, K, CL, CO2, GLUCOSE, BUN, CREATININE, [place])2023-01-17 10:58:32* Test Item Value Reference Range Interpretation Comme nts NA (test code = 6677319843) 136 mmol/L 135-145 K (test code = 4012260182) 4.0 mmol/L 3.5-5.0 CL (test code = 8337485740) 106 mmol/L 98-108 CO2 TOTAL (test code = 8907764644) 24 mmol/L 23-31 AGAP (test code = 8978235956) 6 2-16 BUN (test code = 4613066134) 22 mg/dL 7-23 GLUCOSE (test code = 2899945321) 175 mg/dL 70-110 H CREATININE (test code = 8765090852) 1.06 mg/dL 0.60-1.25 CALCIUM (test code = 2580231606) 8.7 mg/dL 8.6-10.6 eGFR (test code = 6607022596) 71.8 mL/min/1.73m2 SHIKHA (test code = SHIKHA) Association of Glomerular Filtration Rate (GFR) and Staging of Kidney Disease* + --+ --+ ------+| GFR (mL/min/1.73 m2) ?| With Kidney Damage ?| ?Without Kidney Damage+ --------+ --------+ +| ?>90 ?| ?Stage one ?| ? Normal ?+ ---+ ---+ -------+| ?60-89 ?| ?Stage two ?| ? Decreased GFR ? + --+ --+ ------+| ?30-59 ?| ?Stage three ?| ? Stage three ? + --+ --+ ------+| ?15-29 ?| ?Stage four ? | ? Stage four ?+ ---+ ---+ -------+| ?<15 (or dialysis) ? ?| ?Stage five ? | ? Stage five ?+ ---+ ---+ -------+ *Each stage assumes the associated GFR level has been in effect for at least three months. ?Stages 1 to 5, with or without kidney disease, indicate chronic kidney disease. Notes: Determination of stages one and two (with eGFR >59mL/min/1.73 m2) requires estimation of kidney damage for at least three months as defined by structural or functional abnormalities of the kidney, manifested by either:Pathological abnormalities or Markers of kidney damage (including abnormalities in the composition of the blood or urine or abnormalities in imaging tests). Lab Interpretation (test code = 46243-0) Abnormal [facility] WITH [id number] 10:41:07* Test Item Value Reference Range Interpretation Comme nts WBC (test code = 6690-2) 8.21 See_Comment [Automated [employer]] The system which generated this result transmitted reference range: 4.20 - 10.70 10*3/?L. The reference range was not used to interpret this result as normal/abnormal. RBC (test code = 789-8) 3.41 See_Comment L [Automated [employer]] The system which generated this result transmitted reference range: 4.26 - 5.52 10*6/?L. The reference range was not used to interpret this result as normal/abnormal. HGB (test code = 718-7) 9.9 g/dL 12.2-16.4 L HCT (test code = 4544-3) 29.7 % 38.4-49.3 L MCV (test code = 787-2) 87.1 fL 81.7-95.6 MCH (test code = 785-6) 29.0 pg 26.1-32.7 MCHC (test code = 786-4) 33.3 g/dL 31.2-35.0 RDW-SD (test code = 64213-2) 45.0 fL 38.5-51.6 RDW-CV (test code = 788-0) 14.0 % 12.1-15.4 PLT (test code = 777-3) 279 See_Comment [Automated messa ge] The system which generated this result transmitted reference range: 150 - 328 10*3/?L. The reference range was not used to interpret this result as normal/abnormal. MPV (test code = 60933-8) 11.2 fL 9.8-13.0 NRBC/100 WBC (test code = 9456099545) 0.0 See_Comment [Automated Fronto ssage] The system which generated this result transmitted reference range: 0.0 - 10.0 /100 WBCs. The reference range was not used to interpret this result as normal/abnormal. NRBC x10^3 (test code = 8640070316) See_Comment [Automated [employer]] The system which generated this result transmitted reference range: 10*3/?L. The reference range was not used to interpret this result as normal/abnormal. GRAN MAT (NEUT) % (test code = 770-8) 60.5 % IMM GRAN % (test code = 9930450985) 0.20 % LYMPH % (test code = 736-9) 25.7 % MONO % (test code = 5905-5) 8.5 % EOS % (test code = 713-8) 4.0 % BASO % (test code = 706-2) 1.1 % GRAN MAT x10^3(ANC) (test code = 6120899167) 4.96 10*3/uL 1.99-6.95 IMM GRAN x10^3 (test code = 5279338000) 0.00-0.06 LYMPH x10^3 (test code = 731-0) 2.11 10*3/uL 1.09-3.23 MONO x10^3 (test code = 742-7) 0.70 10*3/uL 0.36-1.02 EOS x10^3 (test code = 711-2) 0.33 10*3/uL 0.06-0.53 BASO x10^3 (test code = 704-7) 0.09 10*3/uL 0.01-0.09 Lab Interpretation (test code = 28809-1) Abnormal [facility] WITH [id number] 10:41:07* Test Item Value Reference Range Interpretation Comme nts WBC (test code = 6690-2) 8.21 See_Comment [Automated [employer]] The system which generated this result transmitted reference range: 4.20 - 10.70 10*3/?L. The reference range was not used to interpret this result as normal/abnormal. RBC (test code = 789-8) 3.41 See_Comment L [Automated [employer]] The system which generated this result transmitted reference range: 4.26 - 5.52 10*6/?L. The reference range was not used to interpret this result as normal/abnormal. HGB (test code = 718-7) 9.9 g/dL 12.2-16.4 L HCT (test code = 4544-3) 29.7 % 38.4-49.3 L MCV (test code = 787-2) 87.1 fL 81.7-95.6 MCH (test code = 785-6) 29.0 pg 26.1-32.7 MCHC (test code = 786-4) 33.3 g/dL 31.2-35.0 RDW-SD (test code = 69439-4) 45.0 fL 38.5-51.6 RDW-CV (test code = 788-0) 14.0 % 12.1-15.4 PLT (test code = 777-3) 279 See_Comment [Automated [employer]] The system which generated this result transmitted reference range: 150 - 328 10*3/?L. The reference range was not used to interpret this result as normal/abnormal. MPV (test code = 62769-2) 11.2 fL 9.8-13.0 NRBC/100 WBC (test code = 6542769204) 0.0 See_Comment [Automated me ssage] The system which generated this result transmitted reference range: 0.0 - 10.0 /100 WBCs. The reference range was not used to interpret this result as normal/abnormal. NRBC x10^3 (test code = 5498518524) See_Comment [Automated messa ge] The system which generated this result transmitted reference range: 10*3/?L. The reference range was not used to interpret this result as normal/abnormal. GRAN MAT (NEUT) % (test code = 770-8) 60.5 % IMM GRAN % (test code = 2444034571) 0.20 % LYMPH % (test code = 736-9) 25.7 % MONO % (test code = 5905-5) 8.5 % EOS % (test code = 713-8) 4.0 % BASO % (test code = 706-2) 1.1 % GRAN MAT x10^3(ANC) (test code = 8077569044) 4.96 10*3/uL 1.99-6.95 IMM GRAN x10^3 (test code = 2251676565) 0.00-0.06 LYMPH x10^3 (test code = 731-0) 2.11 10*3/uL 1.09-3.23 MONO x10^3 (test code = 742-7) 0.70 10*3/uL 0.36-1.02 EOS x10^3 (test code = 711-2) 0.33 10*3/uL 0.06-0.53 BASO x10^3 (test code = 704-7) 0.09 10*3/uL 0.01-0.09 Lab Interpretation (test code = 16904-7) Abnormal [facility] GLUCOSE (AUTOMATED)2023-01-17 05:09:45* Test Item Value Reference Range Interpretation Comme nts POCT GLU (test code = 7466654097) 179 mg/dL 70-110 H Lab Interpretation (test cod e = 79349-9) Abnormal [facility] GLUCOSE (AUTOMATED)2023-01-17 05:09:45* Test Item Value Reference Range Interpretation Comme nts POCT GLU (test code = 1671454943) 179 mg/dL 70-110 H Lab Interpretation (test cod e = 71051-9) [facility] (NA, K, CL, CO2, GLUCOSE, BUN, CREATININE, [place])2023-01-17 02:12:56* Test Item Value Reference Range Interpretation Comme nts NA (test code = 0561360250) 133 mmol/L 135-145 L K (test code = 4432902114) 5.6 mmol/L 3.5-5.0 H CL (test code = 9064972620) 97 mmol/L 98-108 L CO2 TOTAL (test code = 9300308484) 25 mmol/L 23-31 AGAP (test code = 1241001189) 11 2-16 BUN (test code = 0122786068) 22 mg/dL 7-23 GLUCOSE (test code = 0000700342) 322 mg/dL 70-110 H CREATININE (test code = 0288094958) 1.45 mg/dL 0.60-1.25 H CALCIUM (test code = 9590865469) 9.4 mg/dL 8.6-10.6 eGFR (test code = 6319162260) 50.0 mL/min/1.73m2 SHIKHA (test code = SHIKHA) Association of Glomerular Filtration Rate (GFR) and Staging of Kidney Disease* + --+ --+ ------+| GFR (mL/min/1.73 m2) ?| With Kidney Damage ?| ?Without Kidney Damage+ --------+ --------+ +| ?>90 ?| ?Stage one ?| ? Normal ?+ ---+ ---+ -------+| ?60-89 ?| ?Stage two ?| ? Decreased GFR ? + --+ --+ ------+| ?30-59 ?| ?Stage three ?| ? Stage three ? + --+ --+ ------+| ?15-29 ?| ?Stage four ? | ? Stage four ?+ ---+ ---+ -------+| ?<15 (or dialysis) ? ?| ?Stage five ? | ? Stage five ?+ ---+ ---+ -------+ *Each stage assumes the associated GFR level has been in effect for at least three months. ?Stages 1 to 5, with or without kidney disease, indicate chronic kidney disease. Notes: Determination of stages one and two (with eGFR >59mL/min/1.73 m2) requires estimation of kidney damage for at least three months as defined by structural or functional abnormalities of the kidney, manifested by either:Pathological abnormalities or Markers of kidney damage (including abnormalities in the composition of the blood or urine or abnormalities in imaging tests). Lab Interpretation (test code = 48822-6) Abnormal [facility] METABOLIC PANEL (NA, K, CL, CO2, GLUCOSE, BUN, CREATININE, CA)2023-01-17 02:12:56* Test Item Value Reference Range Interpretation Comme nts NA (test code = 3105001234) 133 mmol/L 135-145 L K (test code = 7816883761) 5.6 mmol/L 3.5-5.0 H CL (test code = 2357436614) 97 mmol/L 98-108 L CO2 TOTAL (test code = 1983108968) 25 mmol/L 23-31 AGAP (test code = 0110887337) 11 2-16 BUN (test code = 2156455681) 22 mg/dL 7-23 GLUCOSE (test code = 0614201803) 322 mg/dL 70-110 H CREATININE (test code = 0466325328) 1.45 mg/dL 0.60-1.25 H CALCIUM (test code = 1472262264) 9.4 mg/dL 8.6-10.6 eGFR (test code = 2285709298) 50.0 mL/min/1.73m2 SHIKHA (test code = SHIKHA) Association of Glomerular Filtration Rate (GFR) and Staging of Kidney Disease* + --+ --+ ------+| GFR (mL/min/1.73 m2) ?| With Kidney Damage ?| ?Without Kidney Damage+ --------+ --------+ +| ?>90 ?| ?Stage one ?| ? Normal ?+ ---+ ---+ -------+| ?60-89 ?| ?Stage two ?| ? Decreased GFR ? + --+ --+ ------+| ?30-59 ?| ?Stage three ?| ? Stage three ? + --+ --+ ------+| ?15-29 ?| ?Stage four ? | ? Stage four ?+ ---+ ---+ -------+| ?<15 (or dialysis) ? ?| ?Stage five ? | ? Stage five ?+ ---+ ---+ -------+ *Each stage assumes the associated GFR level has been in effect for at least three months. ?Stages 1 to 5, with or without kidney disease, indicate chronic kidney disease. Notes: Determination of stages one and two (with eGFR >59mL/min/1.73 m2) requires estimation of kidney damage for at least three months as defined by structural or functional abnormalities of the kidney, manifested by either:Pathological abnormalities or Markers of kidney damage (including abnormalities in the composition of the blood or urine or abnormalities in imaging tests). Lab Interpretation (test code = 35466-6) Abnormal [facility] WITH [id number] 02:01:11* Test Item Value Reference Range Interpretation Comme nts WBC (test code = 6690-2) 6.32 See_Comment [Automated ROAM Data] The system which generated this result transmitted reference range: 4.20 - 10.70 10*3/?L. The reference range was not used to interpret this result as normal/abnormal. RBC (test code = 789-8) 3.69 See_Comment L [Automated ROAM Data] The system which generated this result transmitted reference range: 4.26 - 5.52 10*6/?L. The reference range was not used to interpret this result as normal/abnormal. HGB (test code = 718-7) 10.9 g/dL 12.2-16.4 L HCT (test code = 4544-3) 31.5 % 38.4-49.3 L MCV (test code = 787-2) 85.4 fL 81.7-95.6 MCH (test code = 785-6) 29.5 pg 26.1-32.7 MCHC (test code = 786-4) 34.6 g/dL 31.2-35.0 RDW-SD (test code = 18339-1) 42.6 fL 38.5-51.6 RDW-CV (test code = 788-0) 13.6 % 12.1-15.4 PLT (test code = 777-3) 291 See_Comment [[employer]] The system which generated this result transmitted reference range: 150 - 328 10*3/?L. The reference range was not used to interpret this result as normal/abnormal. MPV (test code = 88299-2) 10.9 fL 9.8-13.0 NRBC/100 WBC (test code = 8171662050) 0.0 See_Comment [Automated Fronto ssage] The system which generated this result transmitted reference range: 0.0 - 10.0 /100 WBCs. The reference range was not used to interpret this result as normal/abnormal. NRBC x10^3 (test code = 7752965375) See_Comment [Automated messa ge] The system which generated this result transmitted reference range: 10*3/?L. The reference range was not used to interpret this result as normal/abnormal. GRAN MAT (NEUT) % (test code = 770-8) 48.1 % IMM GRAN % (test code = 4335717612) 0.20 % LYMPH % (test code = 736-9) 36.9 % MONO % (test code = 5905-5) 9.7 % EOS % (test code = 713-8) 3.8 % BASO % (test code = 706-2) 1.3 % GRAN MAT x10^3(ANC) (test code = 2017059366) 3.05 10*3/uL 1.99-6.95 IMM GRAN x10^3 (test code = 7477298382) 0.00-0.06 LYMPH x10^3 (test code = 731-0) 2.33 10*3/uL 1.09-3.23 MONO x10^3 (test code = 742-7) 0.61 10*3/uL 0.36-1.02 EOS x10^3 (test code = 711-2) 0.24 10*3/uL 0.06-0.53 BASO x10^3 (test code = 704-7) 0.08 10*3/uL 0.01-0.09 Lab Interpretation (test code = 65553-3) Abnormal [facility] WITH [id number] 02:01:11* Test Item Value Reference Range Interpretation Comme nts WBC (test code = 6690-2) 6.32 See_Comment [Automated messa ge] The system which generated this result transmitted reference range: 4.20 - 10.70 10*3/?L. The reference range was not used to interpret this result as normal/abnormal. RBC (test code = 789-8) 3.69 See_Comment L [Automated messa ge] The system which generated this result transmitted reference range: 4.26 - 5.52 10*6/?L. The reference range was not used to interpret this result as normal/abnormal. HGB (test code = 718-7) 10.9 g/dL 12.2-16.4 L HCT (test code = 4544-3) 31.5 % 38.4-49.3 L MCV (test code = 787-2) 85.4 fL 81.7-95.6 MCH (test code = 785-6) 29.5 pg 26.1-32.7 MCHC (test code = 786-4) 34.6 g/dL 31.2-35.0 RDW-SD (test code = 68853-0) 42.6 fL 38.5-51.6 RDW-CV (test code = 788-0) 13.6 % 12.1-15.4 PLT (test code = 777-3) 291 See_Comment [Automated messa ge] The system which generated this result transmitted reference range: 150 - 328 10*3/?L. The reference range was not used to interpret this result as normal/abnormal. MPV (test code = 04582-8) 10.9 fL 9.8-13.0 NRBC/100 WBC (test code = 5258724136) 0.0 See_Comment [Automated Fronto ssage] The system which generated this result transmitted reference range: 0.0 - 10.0 /100 WBCs. The reference range was not used to interpret this result as normal/abnormal. NRBC x10^3 (test code = 3200636407) See_Comment [Automated messa ge] The system which generated this result transmitted reference range: 10*3/?L. The reference range was not used to interpret this result as normal/abnormal. GRAN MAT (NEUT) % (test code = 770-8) 48.1 % IMM GRAN % (test code = 0335279199) 0.20 % LYMPH % (test code = 736-9) 36.9 % MONO % (test code = 5905-5) 9.7 % EOS % (test code = 713-8) 3.8 % BASO % (test code = 706-2) 1.3 % GRAN MAT x10^3(ANC) (test code = 5855280209) 3.05 10*3/uL 1.99-6.95 IMM GRAN x10^3 (test code = 9029799471) 0.00-0.06 LYMPH x10^3 (test code = 731-0) 2.33 10*3/uL 1.09-3.23 MONO x10^3 (test code = 742-7) 0.61 10*3/uL 0.36-1.02 EOS x10^3 (test code = 711-2) 0.24 10*3/uL 0.06-0.53 BASO x10^3 (test code = 704-7) 0.08 10*3/uL 0.01-0.09 Lab Interpretation (test code = 43480-4) [facility] 13:26:29* Test Item Value Reference Range Interpretation Comme nts POCT GLU (test code = 1155340177) 131 mg/dL 70-110 H Lab Interpretation (test cod e = 35221-6) Abnormal [facility]. METABOLIC PANEL (72464)2022-12-20 10:43:37* Test Item Value Reference Range Interpretation Comme nts NA (test code = 1095982489) 135 mmol/L 135-145 K (test code = 1486168795) 4.0 mmol/L 3.5-5.0 CL (test code = 9887888096) 105 mmol/L 98-108 CO2 TOTAL (test code = 6236019251) 26 mmol/L 23-31 AGAP (test code = 7747926406) 4 2-16 BUN (test code = 6610116753) 29 mg/dL 7-23 H GLUCOSE (test code = 3547888319) 106 mg/dL 70-110 CREATININE (test code = 1799139847) 2.37 mg/dL 0.60-1.25 H TOTAL BILI (test code = 6433859004) 0.6 mg/dL 0.1-1.1 CALCIUM (test code = 3093974812) 8.6 mg/dL 8.6-10.6 T PROTEIN (test code = 4991842546) 7.1 g/dL 6.3-8.2 ALBUMIN (test code = 3035295397) 3.2 g/dL 3.5-5.0 L ALK PHOS (test code = 9131250743) 70 U/L 34-122 ALTv (test code = 1742-6) 16 U/L 5-50 AST(SGOT) (test code = 0939534486) 25 U/L 13-40 eGFR (test code = 9398552456) 28.4 mL/min/1.73m2 SHIKHA (test code = SHIKHA) Association of Glomerular Filtration Rate (GFR) and Staging of Kidney Disease* + --+ --+ ------+| GFR (mL/min/1.73 m2) ?| With Kidney Damage ?| ?Without Kidney Damage+ --------+ --------+ +| ?>90 ?| ?Stage one ?| ? Normal ?+ ---+ ---+ -------+| ?60-89 ?| ?Stage two ?| ? Decreased GFR ? + --+ --+ ------+| ?30-59 ?| ?Stage three ?| ? Stage three ? + --+ --+ ------+| ?15-29 ?| ?Stage four ? | ? Stage four ?+ ---+ ---+ -------+| ?<15 (or dialysis) ? ?| ?Stage five ? | ? Stage five ?+ ---+ ---+ -------+ *Each stage assumes the associated GFR level has been in effect for at least three months. ?Stages 1 to 5, with or without kidney disease, indicate chronic kidney disease. Notes: Determination of stages one and two (with eGFR >59mL/min/1.73 m2) requires estimation of kidney damage for at least three months as defined by structural or functional abnormalities of the kidney, manifested by either:Pathological abnormalities or Markers of kidney damage (including abnormalities in the composition of the blood or urine or abnormalities in imaging tests). Lab Interpretation (test code = 82624-8) Abnormal [facility] GLUCOSE (AUTOMATED)2022-12-20 03:00:19* Test Item Value Reference Range Interpretation Comme nts POCT GLU (test code = 0011326933) 124 mg/dL 70-110 H Lab Interpretation (test cod e = 76444-8) Abnormal [facility] GLUCOSE (AUTOMATED)2022-12-19 21:15:28* Test Item Value Reference Range Interpretation Comme nts POCT GLU (test code = 6025459486) 216 mg/dL 70-110 H Lab Interpretation (test cod e = 98981-2) Abnormal [facility] GLUCOSE (AUTOMATED)2022-12-19 17:23:09* Test Item Value Reference Range Interpretation Comme nts POCT GLU (test code = 5579259963) 247 mg/dL 70-110 H Lab Interpretation (test cod e = 98942-3) Abnormal [facility] GLUCOSE (AUTOMATED)2022-12-19 15:24:47* Test Item Value Reference Range Interpretation Comme nts POCT GLU (test code = 0360569787) 288 mg/dL 70-110 H Lab Interpretation (test cod e = 64544-8) Abnormal [facility] GLUCOSE (AUTOMATED)2022-12-19 13:48:48* Test Item Value Reference Range Interpretation Comme nts POCT GLU (test code = 2850329242) 290 mg/dL 70-110 H Lab Interpretation (test cod e = 78231-7) Abnormal [facility] GLUCOSE (AUTOMATED)2022-12-19 06:42:01* Test Item Value Reference Range Interpretation Comme nts POCT GLU (test code = 2887874421) 317 mg/dL 70-110 H Lab Interpretation (test cod e = 22477-8) [facility]normal [facility] [id number] 04:52:28* Test Item Value Reference Range Interpretation Comme nts CHOLESTEROL (test code = 2210) 147 MG/DL <200 TRIGLYCERIDES (test code = 2232) 155 MG/DL <150 H HDL CHOLESTEROL (test code = 2220) 46 MG/DL >39 CALC LDL CHOL (test code = 2237) 76 MG/DL <100 NOTE: CALCULATED LDL IS BASED ON NEIL-HYLTON METHOD WHICHINCLUDES ADJUSTABLE TRIGLYCERIDE:VLDL CHOLESTEROL RATIO.THIS FACTOR VARIES BY MEASURED TRIGLYCERIDE AND NON-HDLCHOLESTEROL CONCENTRATIONS WITH INCREASED CALCULATED LDL SEENIN HIGHER TRIGLYCERIDE OR LOWER NON-HDL SPECIMENS. FOR MOREINFORMATION, SEE CLIENT ANNOUNCEMENT AT [email or web address] RISK RATIO LDL/HDL (test code = 2238) 1.65 RATIO <3.55 COMPREHENSIVE METABOLIC [id number] 04:52:28* Test Item Value Reference Range Interpretation Comme nts GLUCOSE (test code = 2217) 393 MG/DL 70-99 H BUN (test code = 220) 15 MG/DL 6-20 CREATININE (test code = 2214) 1.26 MG/DL 0.80-1.40 eGFR (2020 CKD-EPI) (test code = 83129) 66 ML/MIN/1.73 >60 CALC BUN/CREAT (test code = 2235) 12 RATIO 6-28 SODIUM (test code = 223) 136 MEQ/L 133-146 POTASSIUM (test code = 2228) 5.0 MEQ/L 3.5-5.4 CHLORIDE (test code = 2215) 99 MEQ/L 95-107 CARBON DIOXIDE (test code = 2206) 25 MEQ/L 19-31 CALCIUM (test code = 2209) 9.7 MG/DL 8.5-10.5 PROTEIN, TOTAL (test code = 222) 7.9 G/DL 6.1-8.3 ALBUMIN (test code = 2201) 3.7 G/DL 3.5-5.2 CALC GLOBULIN (test code = 2240) 4.2 G/DL 1.9-3.7 H CALC A/G RATIO (test code = 2234) 0.9 RATIO 1.0-2.6 L BILIRUBIN, TOTAL (test code = 2207) 0.4 MG/DL See_Comment [Automated me ssage] The system which generated this result transmitted reference range: <=1.2. The reference range was not used to interpret this result as normal/abnormal. ALKALINE PHOSPHATASE (test code = 2204) 98 U/L 40-123 AST (test code = 2218) 17 U/L 9-50 ALT (test code = 2219) 13 U/L 5-50 [facility] has important pathology staff changes effective 01/02/2023. New pathology staff will provide uninterrupted, excellent patient care and clinical consultation. See URL: [email or web address]. UNLESS OTHERWISE INDICATED, ALL TESTING PERFORMED AT [facility] [address] [place] [address] CLIA: [id number], CAP: [id number] HEMOGLOBIN [id number] 03:05:28* Test Item Value Reference Range Interpretation Comme [facility] HEMOGLOBIN A1c (test code = 72113) 12.2 % 4.2-5.6 H [employer] GUIDELINES FOR HGB A1C: PREDIABETES/INCREASED RISK . . . . . . . 5.7-6.4% DIAGNOSIS OF DIABETES . . . . . . . . . >=6.5% WITH CONFIRMATION OR APPROPRIATE SYMPTOMS NOTE: ASSAY MAY BE AFFECTED BY HEMOGLOBINOPATHIES (SICKLE CELL ANEMIA, S-C DISEASE, OTHERS) OR ARTIFICIALLY LOWERED BY DECREASED RED CELL SURVIVAL (HEMOLYTIC ANEMIAS, BLOOD LOSS, ETC.). CONSIDER ALTERNATE TESTING OR LABORATORY CONSULTATION. POCT GLUCOSE (AUTOMATED)2022-12-13 18:00:10* Test Item Value Reference Range Interpretation Comme [facility] POCT GLU (test code = 2791823335) 120 mg/dL 70-110 H Lab Interpretation (test cod e = 18125-6) Abnormal [facility] GLUCOSE (AUTOMATED)2022-12-13 18:00:10* Test Item Value Reference Range Interpretation Comme [facility] POCT GLU (test code = 2417411925) 120 mg/dL 70-110 H Lab Interpretation (test cod e = 86168-3) Abnormal [facility] GLUCOSE (AUTOMATED)2022-12-13 14:04:41* Test Item Value Reference Range Interpretation Comme [facility] POCT GLU (test code = 7996740803) 261 mg/dL 70-110 H Lab Interpretation (test cod e = 26918-5) Abnormal [facility] GLUCOSE (AUTOMATED)2022-12-13 14:04:41* Test Item Value Reference Range Interpretation Comme nts POCT GLU (test code = 2118786488) 261 mg/dL 70-110 H Lab Interpretation (test cod e = 62228-0) Abnormal [facility] GLUCOSE (AUTOMATED)2022-12-13 03:21:11* Test Item Value Reference Range Interpretation Comme nts POCT GLU (test code = 8003210525) 240 mg/dL 70-110 H Lab Interpretation (test cod e = 36524-1) Abnormal [facility] GLUCOSE (AUTOMATED)2022-12-13 03:21:11* Test Item Value Reference Range Interpretation Comme nts POCT GLU (test code = 4776404634) 240 mg/dL 70-110 H Lab Interpretation (test cod e = 34062-1) Abnormal [facility] GLUCOSE (AUTOMATED)2022-12-12 18:16:27* Test Item Value Reference Range Interpretation Comme nts POCT GLU (test code = 8365715439) 131 mg/dL 70-110 H Lab Interpretation (test cod e = 18431-2) Abnormal [facility] GLUCOSE (AUTOMATED)2022-12-12 18:16:27* Test Item Value Reference Range Interpretation Comme nts POCT GLU (test code = 0564380689) 131 mg/dL 70-110 H Lab Interpretation (test cod e = 12361-2) Abnormal [facility] Culture - Peripheral # 13:50:47* Test Item Value Reference Range Interpretation Comme nts Blood Culture-Aerobic (test code = 79463-7) Culture positive. See Blood Culture Workup for additional information. No growth AA Previous preliminary verified result was Culture In Progress on 12/09/2022 at 0217 SOFTWARE PRODUCT MANAGER Blood Culture-Anaerobic (test code = 89712-4) Culture positive. See Blood Culture Workup for additional information. No growth AA Previous preliminary verified result was Culture In Progress on 12/08/2022 at 1701 SOFTWARE PRODUCT MANAGER Lab Interpretation (test code = 00104-4) Abnormal [facility] Culture - Peripheral # 13:50:47* Test Item Value Reference Range Interpretation Comme nts Blood Culture-Aerobic (test code = 71538-3) Culture positive. See Blood Culture Workup for additional information. No growth AA Previous preliminary verified result was Culture In Progress on 12/09/2022 at 0217 SOFTWARE PRODUCT MANAGER Blood Culture-Anaerobic (test code = 17389-0) Culture positive. See Blood Culture Workup for additional information. No growth AA Previous preliminary verified result was Culture In Progress on 12/08/2022 at 1701 SOFTWARE PRODUCT MANAGER Lab Interpretation (test code = 69607-7) Abnormal [facility] CULTURE [id number] 13:50:42* Test Item Value Reference Range Interpretation Comme nts Blood Culture Workup (test code = 600-7) Streptococcus agalactiae (Group B) Gram stain (test code = 664-3) Isolated from aerobic bottle Gram positive cocci This is an appended report. These results have been appended to a previously preliminary verified report. SHIHKA (test code = SHIKHA) Penicillin and ampicillin are drugs of choice for treatment of beta-hemolytic streptococcal infections. In accordance with CLSI M100 guidelines, susceptibility testing of penicillin and other beta-lactams need not be performed due to the extremely rare nature of non-susceptible isolates. [facility] [id number] 13:50:42* Test Item Value Reference Range Interpretation Comme nts Blood Culture Workup (test code = 600-7) Streptococcus agalactiae (Group B) Gram stain (test code = 664-3) Isolated from aerobic bottle Gram positive cocci This is an appended report. These results have been appended to a previously preliminary verified report. SHIKHA (test code = SHIKHA) Penicillin and ampicillin are drugs of choice for treatment of beta-hemolytic streptococcal infections. In accordance with CLSI M100 guidelines, susceptibility testing of penicillin and other beta-lactams need not be performed due to the extremely rare nature of non-susceptible isolates. [facility] GLUCOSE (AUTOMATED)2022-12-12 13:43:09* Test Item Value Reference Range Interpretation Comme nts POCT GLU (test code = 7085061935) 140 mg/dL 70-110 H Lab Interpretation (test cod e = 57377-6) Abnormal [facility] GLUCOSE (AUTOMATED)2022-12-12 13:43:09* Test Item Value Reference Range Interpretation Comme nts POCT GLU (test code = 9267129143) 140 mg/dL 70-110 H Lab Interpretation (test cod e = 66275-9) Abnormal [facility] GLUCOSE (AUTOMATED)2022-12-12 02:45:08* Test Item Value Reference Range Interpretation Comme nts POCT GLU (test code = 0748999918) 111 mg/dL 70-110 H Lab Interpretation (test cod e = 54644-9) Abnormal [facility] GLUCOSE (AUTOMATED)2022-12-12 02:45:08* Test Item Value Reference Range Interpretation Comme nts POCT GLU (test code = 9665481495) 111 mg/dL 70-110 H Lab Interpretation (test cod e = 26629-0) Abnormal [facility] GLUCOSE (AUTOMATED)2022-12-11 22:48:34* Test Item Value Reference Range Interpretation Comme nts POCT GLU (test code = 2993726559) 96 mg/dL 70-110 Lab Interpretation (test cod e = 28897-0) Normal [facility] GLUCOSE (AUTOMATED)2022-12-11 22:48:34* Test Item Value Reference Range Interpretation Comme nts POCT GLU (test code = 0607587080) 96 mg/dL 70-110 Lab Interpretation (test cod e = 02241-2) Normal [facility] GLUCOSE (AUTOMATED)2022-12-11 17:59:33* Test Item Value Reference Range Interpretation Comme nts POCT GLU (test code = 1719642707) 112 mg/dL 70-110 H Lab Interpretation (test cod e = 99540-9) Abnormal [facility] GLUCOSE (AUTOMATED)2022-12-11 17:59:33* Test Item Value Reference Range Interpretation Comme nts POCT GLU (test code = 3764834641) 112 mg/dL 70-110 H Lab Interpretation (test cod e = 69336-3) Abnormal [facility] Culture - Peripheral # [id number] 14:08:35* Test Item Value Reference Range Interpretation Comme nts Blood Culture-Aerobic (test code = 98843-3) No organisms isolated No growth Previous preliminary verified result was Culture In Progress on 12/09/2022 at 0215 SOFTWARE PRODUCT MANAGER Blood Culture-Anaerobic (test code = 69393-1) Culture positive. See Blood Culture Workup for additional information. No growth AA Previous preliminary verified result was Culture In Progress on 12/08/2022 at 1701 SOFTWARE PRODUCT MANAGER Lab Interpretation (test code = 80199-3) Abnormal [facility] Culture - Peripheral # [id number] 14:08:35* Test Item Value Reference Range Interpretation Comme nts Blood Culture-Aerobic (test code = 34513-5) No organisms isolated No growth Previous preliminary verified result was Culture In Progress on 12/09/2022 at 0215 SOFTWARE PRODUCT MANAGER Blood Culture-Anaerobic (test code = 31579-6) Culture positive. See Blood Culture Workup for additional information. No growth AA Previous preliminary verified result was Culture In Progress on 12/08/2022 at 1701 SOFTWARE PRODUCT MANAGER Lab Interpretation (test code = 52190-4) Abnormal [facility] CULTURE [id number] 14:08:25* Test Item Value Reference Range Interpretation Comme nts Blood Culture Workup (test code = 600-7) Streptococcus agalactiae (Group B) Gram stain (test code = 664-3) Isolated from anaerobic bottle Gram positive cocci SHIKHA (test code = SHIKHA) Penicillin and ampicillin are drugs of choice for treatment of beta-hemolytic streptococcal infections. In accordance with CLSI M100 guidelines, susceptibility testing of penicillin and other beta-lactams need not be performed due to the extremely rare nature of non-susceptible isolates. [facility] CULTURE [id number] 14:08:25* Test Item Value Reference Range Interpretation Comme nts Blood Culture Workup (test code = 600-7) Streptococcus agalactiae (Group B) Gram stain (test code = 664-3) Isolated from anaerobic bottle Gram positive cocci SHIKHA (test code = SHIKHA) Penicillin and ampicillin are drugs of choice for treatment of beta-hemolytic streptococcal infections. In accordance with CLSI M100 guidelines, susceptibility testing of penicillin and other beta-lactams need not be performed due to the extremely rare nature of non-susceptible isolates. [facility] GLUCOSE (AUTOMATED)2022-12-11 13:49:53* Test Item Value Reference Range Interpretation Comme nts POCT GLU (test code = 8577674205) 149 mg/dL 70-110 H Lab Interpretation (test cod e = 65389-3) Abnormal [facility] GLUCOSE (AUTOMATED)2022-12-11 13:49:53* Test Item Value Reference Range Interpretation Comme nts POCT GLU (test code = 6324967255) 149 mg/dL 70-110 H Lab Interpretation (test cod e = 72911-5) Abnormal [facility] GLUCOSE (AUTOMATED)2022-12-11 03:04:50* Test Item Value Reference Range Interpretation Comme nts POCT GLU (test code = 3074781641) 120 mg/dL 70-110 H Lab Interpretation (test cod e = 11048-7) Abnormal [facility] GLUCOSE (AUTOMATED)2022-12-11 03:04:50* Test Item Value Reference Range Interpretation Comme nts POCT GLU (test code = 2074863091) 120 mg/dL 70-110 H Lab Interpretation (test cod e = 50080-9) Abnormal [facility] GLUCOSE (AUTOMATED)2022-12-10 23:26:44* Test Item Value Reference Range Interpretation Comme nts POCT GLU (test code = 6841638683) 202 mg/dL 70-110 H Lab Interpretation (test cod e = 55626-5) Abnormal [facility] GLUCOSE (AUTOMATED)2022-12-10 23:26:44* Test Item Value Reference Range Interpretation Comme nts POCT GLU (test code = 3782687836) 202 mg/dL 70-110 H Lab Interpretation (test cod e = 07449-1) Abnormal [facility] GLUCOSE (AUTOMATED)2022-12-10 21:54:23* Test Item Value Reference Range Interpretation Comme nts POCT GLU (test code = 3242509506) 194 mg/dL 70-110 H Lab Interpretation (test cod e = 94659-1) Abnormal [facility] GLUCOSE (AUTOMATED)2022-12-10 21:54:23* Test Item Value Reference Range Interpretation Comme nts POCT GLU (test code = 1367160776) 194 mg/dL 70-110 H Lab Interpretation (test cod e = 89237-2) Abnormal [facility] GLUCOSE (AUTOMATED)2022-12-10 19:05:27* Test Item Value Reference Range Interpretation Comme nts POCT GLU (test code = 3427967188) 187 mg/dL 70-110 H Lab Interpretation (test cod e = 67202-0) Abnormal [facility] GLUCOSE (AUTOMATED)2022-12-10 19:05:27* Test Item Value Reference Range Interpretation Comme nts POCT GLU (test code = 0160997643) 187 mg/dL 70-110 H Lab Interpretation (test cod e = 22082-3) [facility] - Draw within 30 minutes prior to dose on 12/10 @ [id number] 12:08:12* Test Item Value Reference Range Interpretation Comme nts VANCO TROUGH (test code = 1823922993) 18.5 ug/mL 10.0-20.0 SHIKHA (test code = SHIKHA) Toxic Range: ?>20 ug/mL 15-20 ug/mL is recommended for severe infection or when Vancomycin TERRANCE is greater than or equal to 2. Lab Interpretation (test code = 07457-2) Normal [facility] Level - Draw within 30 minutes prior to dose on 12/10 @ [id number] 12:08:12* Test Item Value Reference Range Interpretation Commale[place]ander nts VANCO TROUGH (test code = 9740809456) 18.5 ug/mL 10.0-20.0 HSIKHA (test code = SHIKHA) Toxic Range: ?>20 ug/mL 15-20 ug/mL is recommended for severe infection or when Vancomycin TERRANCE is greater than or equal to 2. Lab Interpretation (test code = 41576-1) Normal [facility] [id number] 11:12:07* Test Item Value Reference Range Interpretation Comme nts ESR (test code = 12491-0) See_Comment H [Automated GlassesGroupGlobala ge] The system which generated this result transmitted reference range: 0 - 15 mm/HR. The reference range was not used to interpret this result as normal/abnormal. Lab Interpretation (test code = 58993-7) Abnormal [facility] [id number] 11:12:07* Test Item Value Reference Range Interpretation Comme nts ESR (test code = 32663-0) See_Comment H [Automated GlassesGroupGlobala ge] The system which generated this result transmitted reference range: 0 - 15 mm/HR. The reference range was not used to interpret this result as normal/abnormal. Lab Interpretation (test code = 49038-1) [facility]normal [facility]2022-12-10 11:01:45* Test Item Value Reference Range Interpretation Comme nts HGB A1C (test code = 4548-4) 12.1 % 4.0-5.7 H SHIKHA (test code = SHIKHA) Reference RangesNormal: <5.7%Prediabetes: 5.7 - 6.4%Diabetes: > 6.5% Lab Interpretation (test code = 61305-5) [facility]normal [facility]2022-12-10 11:01:45* Test Item Value Reference Range Interpretation Comme nts HGB A1C (test code = 4548-4) 12.1 % 4.0-5.7 H SHIKHA (test code = SHIKHA) Reference RangesNormal: <5.7%Prediabetes: 5.7 - 6.4%Diabetes: > 6.5% Lab Interpretation (test code = 97146-0) Abnormal [facility] GLUCOSE (AUTOMATED)2022-12-10 02:34:56* Test Item Value Reference Range Interpretation Comme nts POCT GLU (test code = 1068782858) 120 mg/dL 70-110 H Lab Interpretation (test cod e = 14693-3) Abnormal [facility] GLUCOSE (AUTOMATED)2022-12-10 02:34:56* Test Item Value Reference Range Interpretation Comme nts POCT GLU (test code = 2880898847) 120 mg/dL 70-110 H Lab Interpretation (test cod e = 91378-7) Abnormal [facility] GLUCOSE (AUTOMATED)2022-12-10 00:03:38* Test Item Value Reference Range Interpretation Comme nts POCT GLU (test code = 8489444767) 110 mg/dL 70-110 Lab Interpretation (test cod e = 71539-4) Normal [facility] GLUCOSE (AUTOMATED)2022-12-10 00:03:38* Test Item Value Reference Range Interpretation Comme nts POCT GLU (test code = 8893124091) 110 mg/dL 70-110 Lab Interpretation (test cod e = 26454-6) Normal [facility] GLUCOSE (AUTOMATED)2022-12-09 22:59:26* Test Item Value Reference Range Interpretation Comme nts POCT GLU (test code = 6717295595) 67 mg/dL 70-110 L Lab Interpretation (test cod e = 26353-5) Abnormal [facility] GLUCOSE (AUTOMATED)2022-12-09 22:59:26* Test Item Value Reference Range Interpretation Comme nts POCT GLU (test code = 3300687515) 67 mg/dL 70-110 L Lab Interpretation (test cod e = 55818-5) [facility] [id number] 22:24:58* Test Item Value Reference Range Interpretation Comme nts Streptococcus agalactiae (test code = 13208-5) Positive Negative, See Comment/Narrative A SHIKHA (test code = SHIKHA) Streptococcus agalactiae detected by DNA probe. Preferred therapy for Streptococcus agalactiae bacteremia is penicillin G or ampicillin. In accordance with CLSI M100 guidelines, susceptibility testing ofpenicillin and other beta-lactams need not be performed due tothe extremely rare nature of non-susceptible isolates. Please contact the Antimicrobial Stewardship Program with questions.ASP Pager: ?[phone] See blood culture results for additional information. Testing included eleven identification and three resistance marker targets. Lab Interpretation (test code = 78923-0) [facility]normal [facility] DNA [id number] 22:24:58* Test Item Value Reference Range Interpretation Comme nts Streptococcus agalactiae (test code = 65359-3) Positive Negative, See Comment/Narrative A SHIKHA (test code = SHIKHA) Streptococcus agalactiae detected by DNA probe. Preferred therapy for Streptococcus agalactiae bacteremia is penicillin G or ampicillin. In accordance with CLSI M100 guidelines, susceptibility testing ofpenicillin and other beta-lactams need not be performed due tothe extremely rare nature of non-susceptible isolates. Please contact the Antimicrobial Stewardship Program with questions.ASP Pager: ?[phone] See blood culture results for additional information. Testing included eleven identification and three resistance marker targets. Lab Interpretation (test code = 12618-9) [facility]normal [facility] [id number] 18:24:15* Test Item Value Reference Range Interpretation Comme nts CRP (test code = 9600918126) 13.1 mg/dL <=1.0 H Lab Interpretation (test cod e = 57186-0) [facility]normal [facility] [id number] 18:24:15* Test Item Value Reference Range Interpretation Comme nts CRP (test code = 1321312744) 13.1 mg/dL <=1.0 H Lab Interpretation (test cod e = 69402-0) Abnormal [facility] GLUCOSE (AUTOMATED)2022-12-09 17:53:21* Test Item Value Reference Range Interpretation Comme nts POCT GLU (test code = 2078282564) 191 mg/dL 70-110 H Lab Interpretation (test cod e = 56696-5) Abnormal [facility] GLUCOSE (AUTOMATED)2022-12-09 17:53:21* Test Item Value Reference Range Interpretation Comme nts POCT GLU (test code = 6815780345) 191 mg/dL 70-110 H Lab Interpretation (test cod e = 73494-9) Abnormal [facility] GLUCOSE (AUTOMATED)2022-12-09 14:15:06* Test Item Value Reference Range Interpretation Comme nts POCT GLU (test code = 3875090674) 251 mg/dL 70-110 H Lab Interpretation (test cod e = 36889-7) Abnormal [facility] GLUCOSE (AUTOMATED)2022-12-09 14:15:06* Test Item Value Reference Range Interpretation Comme nts POCT GLU (test code = 3471439327) 251 mg/dL 70-110 H Lab Interpretation (test cod e = 16625-1) Abnormal [facility] Metabolic Panel (NA, K, CL, CO2, GLUCOSE, BUN, CREATININE, CA)2022-12-09 11:03:07* Test Item Value Reference Range Interpretation Comme nts NA (test code = 5600182884) 137 mmol/L 135-145 K (test code = 5844223731) 4.0 mmol/L 3.5-5.0 CL (test code = 0904996995) 104 mmol/L 98-108 CO2 TOTAL (test code = 3651663754) 27 mmol/L 23-31 AGAP (test code = 7876739684) 6 2-16 BUN (test code = 7855201947) 22 mg/dL 7-23 GLUCOSE (test code = 4986040265) 277 mg/dL 70-110 H CREATININE (test code = 7349462392) 1.48 mg/dL 0.60-1.25 H CALCIUM (test code = 8670271513) 8.3 mg/dL 8.6-10.6 L eGFR (test code = 9554543955) 48.8 mL/min/1.73m2 SHIKHA (test code = SHIKHA) Association of Glomerular Filtration Rate (GFR) and Staging of Kidney Disease* + --+ --+ ------+| GFR (mL/min/1.73 m2) ?| With Kidney Damage ?| ?Without Kidney Damage+ --------+ --------+ +| ?>90 ?| ?Stage one ?| ? Normal ?+ ---+ ---+ -------+| ?60-89 ?| ?Stage two ?| ? Decreased GFR ? + --+ --+ ------+| ?30-59 ?| ?Stage three ?| ? Stage three ? + --+ --+ ------+| ?15-29 ?| ?Stage four ? | ? Stage four ?+ ---+ ---+ -------+| ?<15 (or dialysis) ? ?| ?Stage five ? | ? Stage five ?+ ---+ ---+ -------+ *Each stage assumes the associated GFR level has been in effect for at least three months. ?Stages 1 to 5, with or without kidney disease, indicate chronic kidney disease. Notes: Determination of stages one and two (with eGFR >59mL/min/1.73 m2) requires estimation of kidney damage for at least three months as defined by structural or functional abnormalities of the kidney, manifested by either:Pathological abnormalities or Markers of kidney damage (including abnormalities in the composition of the blood or urine or abnormalities in imaging tests). Lab Interpretation (test code = 46177-4) Abnormal [facility] Metabolic Panel (NA, K, CL, CO2, GLUCOSE, BUN, CREATININE, CA)2022-12-09 11:03:07* Test Item Value Reference Range Interpretation Comme nts NA (test code = 8509677623) 137 mmol/L 135-145 K (test code = 5481041630) 4.0 mmol/L 3.5-5.0 CL (test code = 6279375358) 104 mmol/L 98-108 CO2 TOTAL (test code = 4573494655) 27 mmol/L 23-31 AGAP (test code = 8749965277) 6 2-16 BUN (test code = 4686019089) 22 mg/dL 7-23 GLUCOSE (test code = 2454887246) 277 mg/dL 70-110 H CREATININE (test code = 6532484459) 1.48 mg/dL 0.60-1.25 H CALCIUM (test code = 0163967199) 8.3 mg/dL 8.6-10.6 L eGFR (test code = 7752078913) 48.8 mL/min/1.73m2 SHIKHA (test code = SHIKHA) Association of Glomerular Filtration Rate (GFR) and Staging of Kidney Disease* + --+ --+ ------+| GFR (mL/min/1.73 m2) ?| With Kidney Damage ?| ?Without Kidney Damage+ --------+ --------+ +| ?>90 ?| ?Stage one ?| ? Normal ?+ ---+ ---+ -------+| ?60-89 ?| ?Stage two ?| ? Decreased GFR ? + --+ --+ ------+| ?30-59 ?| ?Stage three ?| ? Stage three ? + --+ --+ ------+| ?15-29 ?| ?Stage four ? | ? Stage four ?+ ---+ ---+ -------+| ?<15 (or dialysis) ? ?| ?Stage five ? | ? Stage five ?+ ---+ ---+ -------+ *Each stage assumes the associated GFR level has been in effect for at least three months. ?Stages 1 to 5, with or without kidney disease, indicate chronic kidney disease. Notes: Determination of stages one and two (with eGFR >59mL/min/1.73 m2) requires estimation of kidney damage for at least three months as defined by structural or functional abnormalities of the kidney, manifested by either:Pathological abnormalities or Markers of kidney damage (including abnormalities in the composition of the blood or urine or abnormalities in imaging tests). Lab Interpretation (test code = 56407-5) Abnormal [facility] with [id number] 10:47:49* Test Item Value Reference Range Interpretation Comme nts WBC (test code = 6690-2) 10.15 See_Comment [Automated messa ge] The system which generated this result transmitted reference range: 4.20 - 10.70 10*3/?L. The reference range was not used to interpret this result as normal/abnormal. RBC (test code = 789-8) 3.63 See_Comment L [Automated messa ge] The system which generated this result transmitted reference range: 4.26 - 5.52 10*6/?L. The reference range was not used to interpret this result as normal/abnormal. HGB (test code = 718-7) 10.3 g/dL 12.2-16.4 L HCT (test code = 4544-3) 30.8 % 38.4-49.3 L MCV (test code = 787-2) 84.8 fL 81.7-95.6 MCH (test code = 785-6) 28.4 pg 26.1-32.7 MCHC (test code = 786-4) 33.4 g/dL 31.2-35.0 RDW-SD (test code = 18763-8) 40.1 fL 38.5-51.6 RDW-CV (test code = 788-0) 12.8 % 12.1-15.4 PLT (test code = 777-3) 350 See_Comment H [Automated messa ge] The system which generated this result transmitted reference range: 150 - 328 10*3/?L. The reference range was not used to interpret this result as normal/abnormal. MPV (test code = 25336-8) 10.7 fL 9.8-13.0 NRBC/100 WBC (test code = 0329943670) 0.0 See_Comment [Automated Fronto ssage] The system which generated this result transmitted reference range: 0.0 - 10.0 /100 WBCs. The reference range was not used to interpret this result as normal/abnormal. NRBC x10^3 (test code = 3639582077) See_Comment [Automated messa ge] The system which generated this result transmitted reference range: 10*3/?L. The reference range was not used to interpret this result as normal/abnormal. GRAN MAT (NEUT) % (test code = 770-8) 67.0 % IMM GRAN % (test code = 7472230307) 0.60 % LYMPH % (test code = 736-9) 17.5 % MONO % (test code = 5905-5) 9.4 % EOS % (test code = 713-8) 4.7 % BASO % (test code = 706-2) 0.8 % GRAN MAT x10^3(ANC) (test code = 7212761924) 6.80 10*3/uL 1.99-6.95 IMM GRAN x10^3 (test code = 5743346870) 0.06 10*3/uL 0.00-0.06 LYMPH x10^3 (test code = 731-0) 1.78 10*3/uL 1.09-3.23 MONO x10^3 (test code = 742-7) 0.95 10*3/uL 0.36-1.02 EOS x10^3 (test code = 711-2) 0.48 10*3/uL 0.06-0.53 BASO x10^3 (test code = 704-7) 0.08 10*3/uL 0.01-0.09 Lab Interpretation (test code = 60233-7) Abnormal [facility] with [id number] 10:47:49* Test Item Value Reference Range Interpretation Comme nts WBC (test code = 6690-2) 10.15 See_Comment [Automated messa ge] The system which generated this result transmitted reference range: 4.20 - 10.70 10*3/?L. The reference range was not used to interpret this result as normal/abnormal. RBC (test code = 789-8) 3.63 See_Comment L [Automated messa ge] The system which generated this result transmitted reference range: 4.26 - 5.52 10*6/?L. The reference range was not used to interpret this result as normal/abnormal. HGB (test code = 718-7) 10.3 g/dL 12.2-16.4 L HCT (test code = 4544-3) 30.8 % 38.4-49.3 L MCV (test code = 787-2) 84.8 fL 81.7-95.6 MCH (test code = 785-6) 28.4 pg 26.1-32.7 MCHC (test code = 786-4) 33.4 g/dL 31.2-35.0 RDW-SD (test code = 94730-8) 40.1 fL 38.5-51.6 RDW-CV (test code = 788-0) 12.8 % 12.1-15.4 PLT (test code = 777-3) 350 See_Comment H [Automated messa ge] The system which generated this result transmitted reference range: 150 - 328 10*3/?L. The reference range was not used to interpret this result as normal/abnormal. MPV (test code = 44451-1) 10.7 fL 9.8-13.0 NRBC/100 WBC (test code = 1165794658) 0.0 See_Comment [Automated Fronto ssage] The system which generated this result transmitted reference range: 0.0 - 10.0 /100 WBCs. The reference range was not used to interpret this result as normal/abnormal. NRBC x10^3 (test code = 8708766984) See_Comment [Automated messa ge] The system which generated this result transmitted reference range: 10*3/?L. The reference range was not used to interpret this result as normal/abnormal. GRAN MAT (NEUT) % (test code = 770-8) 67.0 % IMM GRAN % (test code = 0749816918) 0.60 % LYMPH % (test code = 736-9) 17.5 % MONO % (test code = 5905-5) 9.4 % EOS % (test code = 713-8) 4.7 % BASO % (test code = 706-2) 0.8 % GRAN MAT x10^3(ANC) (test code = 9021782873) 6.80 10*3/uL 1.99-6.95 IMM GRAN x10^3 (test code = 5515775872) 0.06 10*3/uL 0.00-0.06 LYMPH x10^3 (test code = 731-0) 1.78 10*3/uL 1.09-3.23 MONO x10^3 (test code = 742-7) 0.95 10*3/uL 0.36-1.02 EOS x10^3 (test code = 711-2) 0.48 10*3/uL 0.06-0.53 BASO x10^3 (test code = 704-7) 0.08 10*3/uL 0.01-0.09 Lab Interpretation (test code = 83805-3) Abnormal [facility] GLUCOSE (AUTOMATED)2022-12-09 02:33:01* Test Item Value Reference Range Interpretation Comme nts POCT GLU (test code = 5071575560) 138 mg/dL 70-110 H Lab Interpretation (test cod e = 40825-8) Abnormal [facility] GLUCOSE (AUTOMATED)2022-12-09 02:33:01* Test Item Value Reference Range Interpretation Comme nts POCT GLU (test code = 3882323968) 138 mg/dL 70-110 H Lab Interpretation (test cod e = 95927-9) Abnormal [facility] GLUCOSE (AUTOMATED)2022-12-08 23:15:41* Test Item Value Reference Range Interpretation Comme nts POCT GLU (test code = 5709436616) 372 mg/dL 70-110 H Lab Interpretation (test cod e = 24093-7) Abnormal [facility] GLUCOSE (AUTOMATED)2022-12-08 23:15:41* Test Item Value Reference Range Interpretation Comme nts POCT GLU (test code = 4615872601) 372 mg/dL 70-110 H Lab Interpretation (test cod e = 75700-0) Abnormal [facility] METABOLIC PANEL (NA, K, CL, CO2, GLUCOSE, BUN, CREATININE, CA)2022-12-08 21:46:12* Test Item Value Reference Range Interpretation Comme nts NA (test code = 6959568980) 132 mmol/L 135-145 L K (test code = 0102956617) 4.8 mmol/L 3.5-5.0 CL (test code = 6374785543) 94 mmol/L 98-108 L CO2 TOTAL (test code = 3452255521) 28 mmol/L 23-31 AGAP (test code = 3016444601) 10 2-16 BUN (test code = 5952575606) 20 mg/dL 7-23 GLUCOSE (test code = 3499357583) 331 mg/dL 70-110 H CREATININE (test code = 3208258130) 1.21 mg/dL 0.60-1.25 CALCIUM (test code = 8443391915) 9.0 mg/dL 8.6-10.6 eGFR (test code = 1939672648) 61.6 mL/min/1.73m2 SHIKHA (test code = SHIKHA) Association of Glomerular Filtration Rate (GFR) and Staging of Kidney Disease* + --+ --+ ------+| GFR (mL/min/1.73 m2) ?| With Kidney Damage ?| ?Without Kidney Damage+ --------+ --------+ +| ?>90 ?| ?Stage one ?| ? Normal ?+ ---+ ---+ -------+| ?60-89 ?| ?Stage two ?| ? Decreased GFR ? + --+ --+ ------+| ?30-59 ?| ?Stage three ?| ? Stage three ? + --+ --+ ------+| ?15-29 ?| ?Stage four ? | ? Stage four ?+ ---+ ---+ -------+| ?<15 (or dialysis) ? ?| ?Stage five ? | ? Stage five ?+ ---+ ---+ -------+ *Each stage assumes the associated GFR level has been in effect for at least three months. ?Stages 1 to 5, with or without kidney disease, indicate chronic kidney disease. Notes: Determination of stages one and two (with eGFR >59mL/min/1.73 m2) requires estimation of kidney damage for at least three months as defined by structural or functional abnormalities of the kidney, manifested by either:Pathological abnormalities or Markers of kidney damage (including abnormalities in the composition of the blood or urine or abnormalities in imaging tests). Lab Interpretation (test code = 31836-4) [facility] (NA, K, CL, CO2, GLUCOSE, BUN, CREATININE, CA)2022-12-08 21:46:12* Test Item Value Reference Range Interpretation Comme nts NA (test code = 0074865707) 132 mmol/L 135-145 L K (test code = 2637332138) 4.8 mmol/L 3.5-5.0 CL (test code = 6410643062) 94 mmol/L 98-108 L CO2 TOTAL (test code = 3651015836) 28 mmol/L 23-31 AGAP (test code = 8876062552) 10 2-16 BUN (test code = 2700476596) 20 mg/dL 7-23 GLUCOSE (test code = 6507686743) 331 mg/dL 70-110 H CREATININE (test code = 7000066862) 1.21 mg/dL 0.60-1.25 CALCIUM (test code = 6417470908) 9.0 mg/dL 8.6-10.6 eGFR (test code = 1200947607) 61.6 mL/min/1.73m2 SHIKHA (test code = SHIKHA) Association of Glomerular Filtration Rate (GFR) and Staging of Kidney Disease* + --+ --+ ------+| GFR (mL/min/1.73 m2) ?| With Kidney Damage ?| ?Without Kidney Damage+ --------+ --------+ +| ?>90 ?| ?Stage one ?| ? Normal ?+ ---+ ---+ -------+| ?60-89 ?| ?Stage two ?| ? Decreased GFR ? + --+ --+ ------+| ?30-59 ?| ?Stage three ?| ? Stage three ? + --+ --+ ------+| ?15-29 ?| ?Stage four ? | ? Stage four ?+ ---+ ---+ -------+| ?<15 (or dialysis) ? ?| ?Stage five ? | ? Stage five ?+ ---+ ---+ -------+ *Each stage assumes the associated GFR level has been in effect for at least three months. ?Stages 1 to 5, with or without kidney disease, indicate chronic kidney disease. Notes: Determination of stages one and two (with eGFR >59mL/min/1.73 m2) requires estimation of kidney damage for at least three months as defined by structural or functional abnormalities of the kidney, manifested by either:Pathological abnormalities or Markers of kidney damage (including abnormalities in the composition of the blood or urine or abnormalities in imaging tests). Lab Interpretation (test code = 67365-1) Abnormal [facility] WITH [id number] 20:02:08* Test Item Value Reference Range Interpretation Comme nts WBC (test code = 6690-2) 12.86 See_Comment H [Automated ROAM Data] The system which generated this result transmitted reference range: 4.20 - 10.70 10*3/?L. The reference range was not used to interpret this result as normal/abnormal. RBC (test code = 789-8) 4.08 See_Comment L [Automated messa ge] The system which generated this result transmitted reference range: 4.26 - 5.52 10*6/?L. The reference range was not used to interpret this result as normal/abnormal. HGB (test code = 718-7) 11.8 g/dL 12.2-16.4 L HCT (test code = 4544-3) 34.7 % 38.4-49.3 L MCV (test code = 787-2) 85.0 fL 81.7-95.6 MCH (test code = 785-6) 28.9 pg 26.1-32.7 MCHC (test code = 786-4) 34.0 g/dL 31.2-35.0 RDW-SD (test code = 43548-3) 38.9 fL 38.5-51.6 RDW-CV (test code = 788-0) 12.8 % 12.1-15.4 PLT (test code = 777-3) 414 See_Comment H [Automated messa ge] The system which generated this result transmitted reference range: 150 - 328 10*3/?L. The reference range was not used to interpret this result as normal/abnormal. MPV (test code = 87712-2) 11.1 fL 9.8-13.0 NRBC/100 WBC (test code = 4610922390) 0.0 See_Comment [Automated Fronto ssage] The system which generated this result transmitted reference range: 0.0 - 10.0 /100 WBCs. The reference range was not used to interpret this result as normal/abnormal. NRBC x10^3 (test code = 0853623244) See_Comment [Automated messa ge] The system which generated this result transmitted reference range: 10*3/?L. The reference range was not used to interpret this result as normal/abnormal. GRAN MAT (NEUT) % (test code = 770-8) 75.7 % IMM GRAN % (test code = 4356885320) 1.10 % LYMPH % (test code = 736-9) 13.7 % MONO % (test code = 5905-5) 6.9 % EOS % (test code = 713-8) 2.1 % BASO % (test code = 706-2) 0.5 % GRAN MAT x10^3(ANC) (test code = 2040240051) 9.73 10*3/uL 1.99-6.95 H IMM GRAN x10^3 (test code = 2756801899) 0.14 10*3/uL 0.00-0.06 H LYMPH x10^3 (test code = 731-0) 1.76 10*3/uL 1.09-3.23 MONO x10^3 (test code = 742-7) 0.89 10*3/uL 0.36-1.02 EOS x10^3 (test code = 711-2) 0.27 10*3/uL 0.06-0.53 BASO x10^3 (test code = 704-7) 0.07 10*3/uL 0.01-0.09 Lab Interpretation (test code = 05364-4) Abnormal [facility] WITH [id number] 20:02:08* Test Item Value Reference Range Interpretation Comme nts WBC (test code = 6690-2) 12.86 See_Comment H [Automated messa ge] The system which generated this result transmitted reference range: 4.20 - 10.70 10*3/?L. The reference range was not used to interpret this result as normal/abnormal. RBC (test code = 789-8) 4.08 See_Comment L [Automated messa ge] The system which generated this result transmitted reference range: 4.26 - 5.52 10*6/?L. The reference range was not used to interpret this result as normal/abnormal. HGB (test code = 718-7) 11.8 g/dL 12.2-16.4 L HCT (test code = 4544-3) 34.7 % 38.4-49.3 L MCV (test code = 787-2) 85.0 fL 81.7-95.6 MCH (test code = 785-6) 28.9 pg 26.1-32.7 MCHC (test code = 786-4) 34.0 g/dL 31.2-35.0 RDW-SD (test code = 54581-6) 38.9 fL 38.5-51.6 RDW-CV (test code = 788-0) 12.8 % 12.1-15.4 PLT (test code = 777-3) 414 See_Comment H [Automated messa ge] The system which generated this result transmitted reference range: 150 - 328 10*3/?L. The reference range was not used to interpret this result as normal/abnormal. MPV (test code = 93613-8) 11.1 fL 9.8-13.0 NRBC/100 WBC (test code = 5085121672) 0.0 See_Comment [Automated me ssage] The system which generated this result transmitted reference range: 0.0 - 10.0 /100 WBCs. The reference range was not used to interpret this result as normal/abnormal. NRBC x10^3 (test code = 1966696703) See_Comment [Automated messa ge] The system which generated this result transmitted reference range: 10*3/?L. The reference range was not used to interpret this result as normal/abnormal. GRAN MAT (NEUT) % (test code = 770-8) 75.7 % IMM GRAN % (test code = 3698161541) 1.10 % LYMPH % (test code = 736-9) 13.7 % MONO % (test code = 5905-5) 6.9 % EOS % (test code = 713-8) 2.1 % BASO % (test code = 706-2) 0.5 % GRAN MAT x10^3(ANC) (test code = 2797651233) 9.73 10*3/uL 1.99-6.95 H IMM GRAN x10^3 (test code = 4085840305) 0.14 10*3/uL 0.00-0.06 H LYMPH x10^3 (test code = 731-0) 1.76 10*3/uL 1.09-3.23 MONO x10^3 (test code = 742-7) 0.89 10*3/uL 0.36-1.02 EOS x10^3 (test code = 711-2) 0.27 10*3/uL 0.06-0.53 BASO x10^3 (test code = 704-7) 0.07 10*3/uL 0.01-0.09 Lab Interpretation (test code = 15485-5) Abnormal [facility] GLUCOSE (AUTOMATED)2022-12-08 19:53:43* Test Item Value Reference Range Interpretation Comme [facility] POCT GLU (test code = 7859406580) 353 mg/dL 70-110 H Lab Interpretation (test cod e = 00732-9) Abnormal [facility] GLUCOSE (AUTOMATED)2022-12-08 19:53:43* Test Item Value Reference Range Interpretation Comme [facility] POCT GLU (test code = 1849149887) 353 mg/dL 70-110 H Lab Interpretation (test cod e = 26669-7) [facility] ALCOHOL<10mg/dL12/01/2022 4:31 PM [facility]10 Cnahewsr09-507 Toxic>100 Depression of TRADE RECRUITER>400 [facility] ([id number])2022-12-01 22:27:29* Test Item Value Reference Range Interpretation Comme nts NA (test code = 6747957248) 129 mmol/L 135-145 L K (test code = 5483212342) 4.4 mmol/L 3.5-5.0 CL (test code = 6904185725) 94 mmol/L 98-108 L CO2 TOTAL (test code = 4741537788) 22 mmol/L 23-31 L AGAP (test code = 0775408818) 2-16 BUN (test code = 5801633259) 22 mg/dL 7-23 GLUCOSE (test code = 1678611128) 445 mg/dL 70-110 H CREATININE (test code = 3827247418) 1.08 mg/dL 0.60-1.25 TOTAL BILI (test code = 6294491402) 2.5 mg/dL 0.1-1.1 H CALCIUM (test code = 8049235162) 8.6 mg/dL 8.6-10.6 T PROTEIN (test code = 3432419755) 7.7 g/dL 6.3-8.2 ALBUMIN (test code = 4422364165) 4.1 g/dL 3.5-5.0 ALK PHOS (test code = 8254526387) 89 U/L 34-122 ALTv (test code = 1742-6) 19 U/L 5-50 AST(SGOT) (test code = 1034925957) 25 U/L 13-40 eGFR (test code = 6687999708) mL/min/1.73m2 SHIKHA (test code = SHIKHA) Association of Glomerular Filtration Rate (GFR) and Staging of Kidney Disease* + --+ --+ ------+| GFR (mL/min/1.73 m2) ?| With Kidney Damage ?| ?Without Kidney Damage+ --------+ --------+ +| ?>90 ?| ?Stage one ?| ? Normal ?+ ---+ ---+ -------+| ?60-89 ?| ?Stage two ?| ? Decreased GFR ? + --+ --+ ------+| ?30-59 ?| ?Stage three ?| ? Stage three ? + --+ --+ ------+| ?15-29 ?| ?Stage four ? | ? Stage four ?+ ---+ ---+ -------+| ?<15 (or dialysis) ? ?| ?Stage five ? | ? Stage five ?+ ---+ ---+ -------+ *Each stage assumes the associated GFR level has been in effect for at least three months. ?Stages 1 to 5, with or without kidney disease, indicate chronic kidney disease. Notes: Determination of stages one and two (with eGFR >59mL/min/1.73 m2) requires estimation of kidney damage for at least three months as defined by structural or functional abnormalities of the kidney, manifested by either:Pathological abnormalities or Markers of kidney damage (including abnormalities in the composition of the blood or urine or abnormalities in imaging tests). Lab Interpretation (test code = 73207-1) Abnormal [facility] WITH [id number] 22:13:08* Test Item Value Reference Range Interpretation Comme nts WBC (test code = 6690-2) See_Comment H [Automated message] The system which generated this result transmitted reference range: 4.20 - 10.70 10*3/?L. The reference range was not used to interpret this result as normal/abnormal. RBC (test code = 789-8) See_Comment L [Automated message] The system which generated this result transmitted reference range: 4.26 - 5.52 10*6/?L. The reference range was not used to interpret this result as normal/abnormal. HGB (test code = 718-7) 11.4 g/dL 12.2-16.4 L HCT (test code = 4544-3) 33.1 % 38.4-49.3 L MCV (test code = 787-2) 86.9 fL 81.7-95.6 MCH (test code = 785-6) 29.9 pg 26.1-32.7 MCHC (test code = 786-4) 34.4 g/dL 31.2-35.0 RDW-SD (test code = 57998-1) 40.9 fL 38.5-51.6 RDW-CV (test code = 788-0) 12.8 % 12.1-15.4 PLT (test code = 777-3) See_Comment [Automated message] The system which generated this result transmitted reference range: 150 - 328 10*3/?L. The reference range was not used to interpret this result as normal/abnormal. MPV (test code = 66778-6) 11.4 fL 9.8-13.0 NRBC/100 WBC (test code = 7672970655) See_Comment [Automated message] The system which generated this result transmitted reference range: 0.0 - 10.0 /100 WBCs. The reference range was not used to interpret this result as normal/abnormal. NRBC x10^3 (test code = 3725164834) See_Comment [Automated message] The system which generated this result transmitted reference range: 10*3/?L. The reference range was not used to interpret this result as normal/abnormal. GRAN MAT (NEUT) % (test code = 770-8) 85.2 % IMM GRAN % (test code = 1149699546) 0.50 % LYMPH % (test code = 736-9) 6.6 % MONO % (test code = 5905-5) 7.2 % EOS % (test code = 713-8) 0.2 % BASO % (test code = 706-2) 0.3 % GRAN MAT x10^3(ANC) (test code = 9470816438) 14.65 10*3/uL 1.99-6.95 H IMM GRAN x10^3 (test code = 8024005221) 0.09 10*3/uL 0.00-0.06 H LYMPH x10^3 (test code = 731-0) 1.13 10*3/uL 1.09-3.23 MONO x10^3 (test code = 742-7) 1.24 10*3/uL 0.36-1.02 H EOS x10^3 (test code = 711-2) 0.03 10*3/uL 0.06-0.53 L BASO x10^3 (test code = 704-7) 0.05 10*3/uL 0.01-0.09 Lab Interpretation (test code = 39706-3) Abnormal [facility] GLUCOSE (AUTOMATED)2022-09-06 16:35:22* Test Item Value Reference Range Interpretation Comme nts POCT GLU (test code = 5991855157) 114 mg/dL 70-110 H Lab Interpretation (test cod e = 86434-8) Abnormal [facility] GLUCOSE (AUTOMATED)2022-09-06 12:42:35* Test Item Value Reference Range Interpretation Comme nts POCT GLU (test code = 5945850068) 113 mg/dL 70-110 H Lab Interpretation (test cod e = 29380-7) Abnormal [facility] GLUCOSE (AUTOMATED)2022-09-05 22:00:25* Test Item Value Reference Range Interpretation Comme nts POCT GLU (test code = 6984077443) 88 mg/dL 70-110 Lab Interpretation (test cod e = 11090-2) Normal [facility] GLUCOSE (AUTOMATED)2022-09-05 16:31:40* Test Item Value Reference Range Interpretation Comme nts POCT GLU (test code = 5300057619) 107 mg/dL 70-110 Lab Interpretation (test cod e = 12908-1) Normal [facility] GLUCOSE (AUTOMATED)2022-09-05 12:59:17* Test Item Value Reference Range Interpretation Comme nts POCT GLU (test code = 0969385257) 129 mg/dL 70-110 H Lab Interpretation (test cod e = 84658-1) Abnormal [facility] GLUCOSE (AUTOMATED)2022-09-05 01:23:51* Test Item Value Reference Range Interpretation Comme nts POCT GLU (test code = 6880246441) 114 mg/dL 70-110 H Lab Interpretation (test cod e = 50986-9) Abnormal [facility] GLUCOSE (AUTOMATED)2022-09-04 21:29:42* Test Item Value Reference Range Interpretation Comme nts POCT GLU (test code = 9048531367) 114 mg/dL 70-110 H Lab Interpretation (test cod e = 09942-2) Abnormal [facility] GLUCOSE (AUTOMATED)2022-09-04 17:05:19* Test Item Value Reference Range Interpretation Comme nts POCT GLU (test code = 5321209847) 120 mg/dL 70-110 H Lab Interpretation (test cod e = 55551-4) Abnormal [facility] GLUCOSE (AUTOMATED)2022-09-04 12:50:59* Test Item Value Reference Range Interpretation Comme nts POCT GLU (test code = 7711494875) 123 mg/dL 70-110 H Lab Interpretation (test cod e = 89345-7) Abnormal [facility] GLUCOSE (AUTOMATED)2022-09-04 07:26:56* Test Item Value Reference Range Interpretation Comme nts POCT GLU (test code = 2592304883) 117 mg/dL 70-110 H Lab Interpretation (test cod e = 31995-5) Abnormal [facility] GLUCOSE (AUTOMATED)2022-09-04 01:30:15* Test Item Value Reference Range Interpretation Comme nts POCT GLU (test code = 3908288621) 113 mg/dL 70-110 H Lab Interpretation (test cod e = 08005-9) Abnormal [facility] GLUCOSE (AUTOMATED)2022-09-03 22:02:15* Test Item Value Reference Range Interpretation Comme nts POCT GLU (test code = 7983099105) 166 mg/dL 70-110 H Lab Interpretation (test cod e = 88199-1) Abnormal [facility] GLUCOSE (AUTOMATED)2022-09-03 17:25:06* Test Item Value Reference Range Interpretation Comme nts POCT GLU (test code = 2001361840) 220 mg/dL 70-110 H Lab Interpretation (test cod e = 28824-4) Abnormal [facility] GLUCOSE (AUTOMATED)2022-09-03 13:31:21* Test Item Value Reference Range Interpretation Comme nts POCT GLU (test code = 7056597116) 149 mg/dL 70-110 H Notified Provide r Lab Interpretation (test code = 70853-4) Abnormal [facility] GLUCOSE (AUTOMATED)2022-09-03 13:31:16* Test Item Value Reference Range Interpretation Comme nts POCT GLU (test code = 6003890800) 147 mg/dL 70-110 H Lab Interpretation (test cod e = 04606-2) Abnormal [facility] GLUCOSE (AUTOMATED)2022-09-03 13:26:23* Test Item Value Reference Range Interpretation Comme nts POCT GLU (test code = 8425222991) 253 mg/dL 70-110 H Lab Interpretation (test cod e = 21265-0) [id number] 08:52:29* Test Item Value Reference Range Interpretation Comme nts NT-proBNP (test code = 2786706447) 450 pg/mL See_Comment H [Automated message] The system which generated this result transmitted reference range: <=125. The reference range was not used to interpret this result as normal/abnormal. SHIKHA (test code = SHIKHA) Biotin has been reported to cause a negative bias, interpret results relative to patient's use of biotin. Lab Interpretation (test code = 29003-9) [facility] 08:40:49* Test Item Value Reference Range Interpretation Comme nts PHOSPHORUS (test code = 3055209302) 3.8 mg/dL 2.5-5.0 Lab Interpretation (test cod e = 91399-3) Normal [facility] GLUCOSE (AUTOMATED)2022-09-03 01:41:52* Test Item Value Reference Range Interpretation Comme nts POCT GLU (test code = 4811532120) 204 mg/dL 70-110 H Lab Interpretation (test cod e = 29848-3) Abnormal [facility] GLUCOSE (AUTOMATED)2022-09-02 23:09:24* Test Item Value Reference Range Interpretation Comme nts POCT GLU (test code = 1879427019) 207 mg/dL 70-110 H Lab Interpretation (test cod e = 41067-3) [facility]normal [facility]2022-[facility] 20:46:20* Test Item Value Reference Range Interpretation Comments Procalcitonin (test code = 7675354094) 0.12 ng/mL See_Comment H [Automated message] The system which generated this result transmitted reference range: <=0.07. The reference range was not used to interpret this result as normal/abnormal . SHIKHA (test code = SHIKHA) INTERPRETATION OF PROCALCITONIN RESULTS IN ADULTS >= 18 YEARS OF AGE Initiation and discontinuation of antibiotics on patients with suspected or confirmed Lower Respiratory Tract Infection in Adults >= 18 years of age. + +------ + ----+ +|Procalcit onin |Interpretation ?|Antibiotic ? ? |Considerations ? |ng/mL ? | ?|recommendation | ? + +------ + ----+ +| <0.1 ? | Bacterial ? ? ?| Strongly ? ? ?| ? | ?| infection very | discouraged ? | Overruling: ? | ?| unlikely ? ? ? | ? | ? Clinically unstable ? ? ? + +------ + ----+ ? High risk for adverse ? ? | <0.25 ?| Bacterial ? ? ?| Discouraged ? | ? outcome ? | ?| infection ? ? ?| ? | ? SEE IMPORTANT NOTE ?| ?| unlikely ? ? ? | ? | ? + +------ + ----+ +| >=0.25 ? ? ? | Bacterial ? ? ?| Encouraged ? ?| ? | ?| infection ? ? ?| ? | ? | ?| likely ? | ? | Consider treatment failure ?+ +----- + -----+ if levels does not decrease | >0.5 ? | Bacterial ? ? ?| Strongly ? ? ?| appropriately ? | ?| infection very | encouraged ? ?| ? | ?| likely ? | ? | ? + +------ + ----+ + Discontinuation of antibiotics in high-acuity patients with suspected or confirmed sepsis in Adults >= 18 years of age. + +------ + ----+ +|Procalcit onin |Interpretation ?|Antibiotic ? ? |Considerations ? |ng/mL ? | ?|recommendation | ? + +------ + ----+ +| <0.25 ?| Bacterial ? ? ?| Strongly ? ? ?| ? | ?| infection very | discouraged ? | Overruling: ? | ?| unlikely ? ? ? | ? | ? Clinically unstable ? ? ? + +------ + ----+ ? High risk for adverse ? ? | <0.5 or drop | Bacterial ? ? ?| Discouraged ? | ? outcome ? | >80% from ? ?| infection ? ? ?| ? | ? SEE IMPORTANT NOTE ?| highest PCT ?| unlikely ? ? ? | ? | ? | level ?| ?| ? | ? + +------ + ----+ +| >=0.5 ?| Bacterial ? ? ?| Encouraged ? ?| ? | ?| infection ? ? ?| ? | ? | ?| likely ? | ? | Consider treatment failure ?+ +----- + -----+ if levels does not decrease | >1.0 ? | Bacterial ? ? ?| Strongly ? ? ?| appropriately ? | ?| infection very | encouraged ? ?| ? | ?| likely ? | ? | ? + +------ + ----+ + Percentage of drop of Procalcitonin calculation for Discontinuation of antibiotics in high-acuity patients with suspected or confirmed sepsis in Adults >= 18 years of age. ? Procalcitonin highest{}-Procalcitoni n current{}Delta Procalcitonin = ___ x100% ? Procalcitonin current {} IMPORTANT NOTE: Procalcitonin may be elevated without bacterial infection by physiologic stress related to trauma, medley, chronic dialysis, metastatic cancer, surgery in the past seven days, malaria, some fungal infections, and some forms of vasculitis. The interpretation algorithm may not apply to patients with immunosuppression (equivalent of >10 mg of prednisone daily), HIV with CD4 cell count < 350 cells/mm3, active malignancy on systemic chemotherapy, solid organ transplant or hematopoietic stem cell transplantation, or hospital acquired pneumonia. Additionally, some clinical trials of procalcitonin have excluded patients with shock requiring vasopressor use, acute respiratory failure requiring mechanical ventilation, or those with known lung abscess/empyema. For further information please refer to:[email or web address] Lab Interpretation (test code = 35033-0) Abnormal [facility]-REACTIVE [id number] 20:34:16* Test Item Value Reference Range Interpretation Comme nts CRP (test code = 4628541794) 12.7 mg/dL See_Comment H [Automated [employer] ge] The system which generated this result transmitted reference range: <=0.8. The reference range was not used to interpret this result as normal/abnormal. Lab Interpretation (test code = 80075-1) Abnormal [facility] GLUCOSE (AUTOMATED)2022-09-02 17:41:56* Test Item Value Reference Range Interpretation Comme nts POCT GLU (test code = 4677982129) 148 mg/dL 70-110 H Lab Interpretation (test cod e = 53146-6) Abnormal [facility] GLUCOSE (AUTOMATED)2022-09-02 16:53:05* Test Item Value Reference Range Interpretation Comme nts POCT GLU (test code = 7915662386) 49 mg/dL 70-110 LL Lab Interpretation (test cod e = 86947-7) Abnormal [facility] GLUCOSE (AUTOMATED)2022-09-02 16:53:05* Test Item Value Reference Range Interpretation Comme nts POCT GLU (test code = 2684050918) 54 mg/dL 70-110 L Lab Interpretation (test cod e = 91590-2) [facility]2022-[facility]-02 16:46:52* Test Item Value Reference Range Interpretation Comme nts POCT GLU (test code = 1157363013) 56 mg/dL 70-110 L Lab Interpretation (test cod e = 25998-4) Abnormal [facility] WestSEDIMENTATION [id number] 13:27:19* Test Item Value Reference Range Interpretation Comme nts ESR (test code = 82960-7) See_Comment H [Automated messa ge] The system which generated this result transmitted reference range: 0 - 10 mm/HR. The reference range was not used to interpret this result as normal/abnormal. Lab Interpretation (test code = 12631-3) Abnormal [facility] WestGLYCOSYLATED HEMOGLOBIN (A1C)2022-09-02 12:46:05* Test Item Value Reference Range Interpretation Comme nts HGB A1C (test code = 4548-4) 10.6 % 4.0-5.7 H SHIKHA (test code = SHIKHA) Reference RangesNormal: <5.7%Prediabetes: 5.7 - 6.4%Diabetes: > 6.5% Lab Interpretation (test code = 80919-9) Abnormal [facility] WestFERRITIN [id number] 12:45:00* Test Item Value Reference Range Interpretation Comme nts FERRITIN (test code = 6930030262) 143.0 ng/mL 18.0-464.0 SHIKHA (test code = SHIKHA) Biotin has been reported to cause a negative bias, interpret results relative to patient's use of biotin. Lab Interpretation (test code = 95437-9) Normal [facility] WestIRON [id number] 12:18:58* Test Item Value Reference Range Interpretation Comme nts IRON (test code = 1015140742) 23 ug/dL 50-160 L TIBC (test code = 0647789563) 250 ug/dL 250-410 % FE SAT (test code = 2155300056) 9 % 20-50 L Lab Interpretation (test cod e = 38973-7) Abnormal [facility] WestMAGNESIUM2022-10-30 12:09:57* Test Item Value Reference Range Interpretation Comme nts MAGNESIUM (test code = 8011345912) 1.6 mg/dL 1.7-2.4 L Lab Interpretation (test cod e = 99101-8) Abnormal [facility] WestLipid Panel (Total Cholesterol, Triglycerides, HDL) - [id number] 12:09:57* Test Item Value Reference Range Interpretation Comme nts CHOL (test code = 8520786916) 205 mg/dL 120-200 H HDL (test code = 6750060826) 42 mg/dL See_Comment [Automated [employer] Data] The system which generated this result transmitted reference range: >=40. The reference range was not used to interpret this result as normal/abnormal. HDLC RATIO (test code = 9976150773) See_Comment [Automated ROAM Data] The system which generated this result transmitted reference range: <=5.0. The reference range was not used to interpret this result as normal/abnormal. TRIG (test code = 2166626285) 127 mg/dL 30-170 LDL CHOL (test code = 51614-4) 138 mg/dL See_Comment [Automated ROAM Data] The system which generated this result transmitted reference range: <=160. The reference range was not used to interpret this result as normal/abnormal. VLDL (test code = 2328143376) 25 mg/dL 5-60 Lab Interpretation (test code = 30085-8) Abnormal [facility] WestURIC [id number] 12:09:42* Test Item Value Reference Range Interpretation Comme nts URIC ACID (test code = 1050051007) 8.4 mg/dL 3.6-8.0 H Lab Interpretation (test cod e = 21671-9) Abnormal [facility] WestCOMP. METABOLIC PANEL (25886)2022-09-02 08:21:42* Test Item Value Reference Range Interpretation Comme nts NA (test code = 1148057144) 133 mmol/L 135-145 L K (test code = 6062340420) 4.3 mmol/L 3.5-5.0 CL (test code = 2725029800) 98 mmol/L 98-108 CO2 TOTAL (test code = 4519786745) 25 mmol/L 23-31 AGAP (test code = 8880967643) 2-16 BUN (test code = 9574186672) 15 mg/dL 7-23 GLUCOSE (test code = 9904611525) 318 mg/dL 70-110 H CREATININE (test code = 8137703443) 1.20 mg/dL 0.60-1.25 TOTAL BILI (test code = 2565032135) 0.9 mg/dL 0.1-1.1 CALCIUM (test code = 9071413044) 9.2 mg/dL 8.6-10.6 T PROTEIN (test code = 6667169585) 7.4 g/dL 6.3-8.2 ALBUMIN (test code = 0532232645) 4.1 g/dL 3.5-5.0 ALK PHOS (test code = 0292035168) 96 U/L 34-122 ALTv (test code = 1742-6) 13 U/L 5-50 AST(SGOT) (test code = 6167455044) 17 U/L 13-40 eGFR (test code = 8441142714) mL/min/1.73m2 SHIKHA (test code = SHIKHA) Association of Glomerular Filtration Rate (GFR) and Staging of Kidney Disease* + --+ --+ ------+| GFR (mL/min/1.73 m2) ?| With Kidney Damage ?| ?Without Kidney Damage+ --------+ --------+ +| ?>90 ?| ?Stage one ?| ? Normal ?+ ---+ ---+ -------+| ?60-89 ?| ?Stage two ?| ? Decreased GFR ? + --+ --+ ------+| ?30-59 ?| ?Stage three ?| ? Stage three ? + --+ --+ ------+| ?15-29 ?| ?Stage four ? | ? Stage four ?+ ---+ ---+ -------+| ?<15 (or dialysis) ? ?| ?Stage five ? | ? Stage five ?+ ---+ ---+ -------+ *Each stage assumes the associated GFR level has been in effect for at least three months. ?Stages 1 to 5, with or without kidney disease, indicate chronic kidney disease. Notes: Determination of stages one and two (with eGFR >59mL/min/1.73 m2) requires estimation of kidney damage for at least three months as defined by structural or functional abnormalities of the kidney, manifested by either:Pathological abnormalities or Markers of kidney damage (including abnormalities in the composition of the blood or urine or abnormalities in imaging tests). Lab Interpretation (test code = 37675-9) Abnormal [facility] WITH [id number] 08:09:40* Test Item Value Reference Range Interpretation Comme nts WBC (test code = 6690-2) See_Comment H [Automated [employer] ge] The system which generated this result transmitted reference range: 4.20 - 10.70 10*3/?L. The reference range was not used to interpret this result as normal/abnormal. RBC (test code = 789-8) See_Comment L [Automated [employer] ge] The system which generated this result transmitted reference range: 4.26 - 5.52 10*6/?L. The reference range was not used to interpret this result as normal/abnormal. HGB (test code = 718-7) 11.6 g/dL 12.2-16.4 L HCT (test code = 4544-3) 32.8 % 38.4-49.3 L MCV (test code = 787-2) 84.5 fL 81.7-95.6 MCH (test code = 785-6) 29.9 pg 26.1-32.7 MCHC (test code = 786-4) 35.4 g/dL 31.2-35.0 H RDW-SD (test code = 62870-4) 37.6 fL 38.5-51.6 L RDW-CV (test code = 788-0) 12.4 % 12.1-15.4 PLT (test code = 777-3) See_Comment H [Automated [employer] ge] The system which generated this result transmitted reference range: 150 - 328 10*3/?L. The reference range was not used to interpret this result as normal/abnormal. MPV (test code = 70850-1) 10.8 fL 9.8-13.0 NRBC/100 WBC (test code = 6135819409) See_Comment [Automated [employer]] The system which generated this result transmitted reference range: 0.0 - 10.0 /100 WBCs. The reference range was not used to interpret this result as normal/abnormal. NRBC x10^3 (test code = 8247214619) See_Comment [Automated messa ge] The system which generated this result transmitted reference range: 10*3/?L. The reference range was not used to interpret this result as normal/abnormal. GRAN MAT (NEUT) % (test code = 770-8) 65.6 % IMM GRAN % (test code = 9507647769) 0.50 % LYMPH % (test code = 736-9) 21.4 % MONO % (test code = 5905-5) 9.5 % EOS % (test code = 713-8) 2.4 % BASO % (test code = 706-2) 0.6 % GRAN MAT x10^3(ANC) (test code = 2759806249) 7.56 10*3/uL 1.99-6.95 H IMM GRAN x10^3 (test code = 0089637500) 0.06 10*3/uL 0.00-0.06 LYMPH x10^3 (test code = 731-0) 2.46 10*3/uL 1.09-3.23 MONO x10^3 (test code = 742-7) 1.09 10*3/uL 0.36-1.02 H EOS x10^3 (test code = 711-2) 0.28 10*3/uL 0.06-0.53 BASO x10^3 (test code = 704-7) 0.07 10*3/uL 0.01-0.09 Lab Interpretation (test code = 34796-2) [facility]-30 04:29:06* Test Item Value Reference Range Interpretation Comme [facility] POCT GLU (test code = 9182004420) 73 mg/dL 70-110 Lab Interpretation (test cod e = 29423-7) Normal [facility] WestGLYCOSYLATED HEMOGLOBIN (A1C)2022-06-21 01:38:48* Test Item Value Reference Range Interpretation Comme [facility] HGB A1C (test code = 4548-4) 11.9 % 4-5.7 H SHIKHA (test code = SHIKHA) Reference RangesNormal: <5.7%Prediabetes: 5.7 - 6.4%Diabetes: > 6.5% Lab Interpretation (test code = 46761-2) [facility]19[facility] 01:08:38* Test Item Value Reference Range Interpretation Comme nts NA (test code = 4363247527) 124 mmol/L 135-145 L K (test code = 1031289662) 4.0 mmol/L 3.5-5 CL (test code = 6398421823) 90 mmol/L 98-108 L CO2 TOTAL (test code = 0815071954) 25 mmol/L 23-31 AGAP (test code = 3846990679) 2-16 BUN (test code = 8744536782) 22 mg/dL 7-23 GLUCOSE (test code = 0936850921) 327 mg/dL 70-110 H CREATININE (test code = 5001435355) 1.52 mg/dL 0.6-1.25 H TOTAL BILI (test code = 5234561561) 0.9 mg/dL 0.1-1.1 CALCIUM (test code = 3076176188) 8.2 mg/dL 8.6-10.6 L T PROTEIN (test code = 5425396719) 6.9 g/dL 6.3-8.2 ALBUMIN (test code = 2741423759) 3.9 g/dL 3.5-5 ALK PHOS (test code = 8628772602) 84 U/L 34-122 ALTv (test code = 1742-6) 17 U/L 5-50 AST(SGOT) (test code = 9088542120) 22 U/L 13-40 eGFR (test code = 9205618789) mL/min/1.73m2 SHIKHA (test code = SHIKHA) Association of Glomerular Filtration Rate (GFR) and Staging of Kidney Disease* + --+ --+ ------+| GFR (mL/min/1.73 m2) ?| With Kidney Damage ?| ?Without Kidney Damage+ --------+ --------+ +| ?>90 ?| ?Stage one ?| ? Normal ?+ ---+ ---+ -------+| ?60-89 ?| ?Stage two ?| ? Decreased GFR ? + --+ --+ ------+| ?30-59 ?| ?Stage three ?| ? Stage three ? + --+ --+ ------+| ?15-29 ?| ?Stage four ? | ? Stage four ?+ ---+ ---+ -------+| ?<15 (or dialysis) ? ?| ?Stage five ? | ? Stage five ?+ ---+ ---+ -------+ *Each stage assumes the associated GFR level has been in effect for at least three months. ?Stages 1 to 5, with or without kidney disease, indicate chronic kidney disease. Notes: Determination of stages one and two (with eGFR >59mL/min/1.73 m2) requires estimation of kidney damage for at least three months as defined by structural or functional abnormalities of the kidney, manifested by either:Pathological abnormalities or Markers of kidney damage (including abnormalities in the composition of the blood or urine or abnormalities in imaging tests). Lab Interpretation (test code = 02253-0) [facility]normal [facility] 01:08:18* Test Item Value Reference Range Interpretation Comme nts LIPASE (test code = 1714753606) 40 U/L 0-220 Lab Interpretation (test cod e = 26650-1) Normal [facility] WITH [id number] 00:59:54* Test Item Value Reference Range Interpretation Comme nts WBC (test code = 6690-2) See_Comment [Automated [employer] Data] The system which generated this result transmitted reference range: 4.20 - 10.70 10*3/?L. The reference range was not used to interpret this result as normal/abnormal. RBC (test code = 789-8) See_Comment L [Automated [employer] Data] The system which generated this result transmitted reference range: 4.26 - 5.52 10*6/?L. The reference range was not used to interpret this result as normal/abnormal. HGB (test code = 718-7) 11.4 g/dL 12.2-16.4 L HCT (test code = 4544-3) 32.4 % 38.4-49.3 L MCV (test code = 787-2) 82.0 fL 81.7-95.6 MCH (test code = 785-6) 28.9 pg 26.1-32.7 MCHC (test code = 786-4) 35.2 g/dL 31.2-35 H RDW-SD (test code = 34806-7) 36.7 fL 38.5-51.6 L RDW-CV (test code = 788-0) 12.1 % 12.1-15.4 PLT (test code = 777-3) See_Comment [Automated messa ge] The system which generated this result transmitted reference range: 150 - 328 10*3/?L. The reference range was not used to interpret this result as normal/abnormal. MPV (test code = 95006-5) 10.8 fL 9.8-13 NRBC/100 WBC (test code = 7402632600) See_Comment [Automated [employer]] The system which generated this result transmitted reference range: 0.0 - 10.0 /100 WBCs. The reference range was not used to interpret this result as normal/abnormal. NRBC x10^3 (test code = 3498570232) See_Comment [Automated messa ge] The system which generated this result transmitted reference range: 10*3/?L. The reference range was not used to interpret this result as normal/abnormal. GRAN MAT (NEUT) % (test code = 770-8) 66.0 % IMM GRAN % (test code = 4412673368) 0.30 % LYMPH % (test code = 736-9) 23.6 % MONO % (test code = 5905-5) 8.5 % EOS % (test code = 713-8) 0.9 % BASO % (test code = 706-2) 0.7 % GRAN MAT x10^3(ANC) (test code = 7080806588) 6.42 10*3/uL 1.99-6.95 IMM GRAN x10^3 (test code = 8738836825) 0.03 10*3/uL 0-0.06 LYMPH x10^3 (test code = 731-0) 2.30 10*3/uL 1.09-3.23 MONO x10^3 (test code = 742-7) 0.83 10*3/uL 0.36-1.02 EOS x10^3 (test code = 711-2) 0.09 10*3/uL 0.06-0.53 BASO x10^3 (test code = 704-7) 0.07 10*3/uL 0.01-0.09 Lab Interpretation (test code = 53196-9) [facility]normal [facility] WestCOMPREHENSIVE METABOLIC [id number] 05:04:53* Test Item Value Reference Range Interpretation Comme nts GLUCOSE (test code = 7) 343 MG/DL 70-99 H BUN (test code = 2207) 28 MG/DL 6-20 H CREATININE (test code = 2213) 1.22 MG/DL 0.80-1.40 eGFR (2020 CKD-EPI) (test code = 96236) 69 ML/MIN/1.73 >60 CALC BUN/CREAT (test code = 5) 23 RATIO 6-28 SODIUM (test code = 223) 132 MEQ/L 133-146 L POTASSIUM (test code = 2228) 4.6 MEQ/L 3.5-5.4 CHLORIDE (test code = 5) 97 MEQ/L 95-107 CARBON DIOXIDE (test code = 6) 21 MEQ/L 19-31 CALCIUM (test code = 2208) 9.5 MG/DL 8.5-10.5 PROTEIN, TOTAL (test code = 2228) 7.6 G/DL 6.1-8.3 ALBUMIN (test code = 2200) 4.1 G/DL 3.5-5.2 CALC GLOBULIN (test code = 2240) 3.5 G/DL 1.9-3.7 CALC A/G RATIO (test code = 2234) 1.2 RATIO 1.0-2.6 BILIRUBIN, TOTAL (test code = 2206) 0.8 MG/DL See_Comment [Automated me ssage] The system which generated this result transmitted reference range: <=1.2. The reference range was not used to interpret this result as normal/abnormal. ALKALINE PHOSPHATASE (test code = 4) 101 U/L 40-123 AST (test code = 2218) 14 U/L 9-50 ALT (test code = 2219) 12 U/L 5-50 LIPID [id number] 05:04:53* Test Item Value Reference Range Interpretation Comme nts CHOLESTEROL (test code = 0) 205 MG/DL <200 H TRIGLYCERIDES (test code = 2232) 260 MG/DL <150 H HDL CHOLESTEROL (test code = 2219) 50 MG/DL >39 CALC LDL CHOL (test code = 2236) 118 MG/DL <100 H NOTE: CALCULATED LDL IS BASED ON NEIL-HYLTON METHOD WHICHINCLUDES ADJUSTABLE TRIGLYCERIDE:VLDL CHOLESTEROL RATIO.THIS FACTOR VARIES BY MEASURED TRIGLYCERIDE AND NON-HDLCHOLESTEROL CONCENTRATIONS WITH INCREASED CALCULATED LDL SEENIN HIGHER TRIGLYCERIDE OR LOWER NON-HDL SPECIMENS. FOR MOREINFORMATION, SEE CLIENT ANNOUNCEMENT AT [email or web address] [email or web address] RATIO LDL/HDL (test code = 2238) 2.36 RATIO <3.55 PSA, [id number] 03:59:12* Test Item Value Reference Range Interpretation Comme nts PSA, TOTAL (test code = 2606) 0.61 NG/ML See_Comment NOTE: Methodolog y is Jes Sunny Electrochemiluminescence Immunoassay traceable to WHO reference standard 96/760. UNLESS OTHERWISE INDICATED, ALL TESTING PERFORMED [facility] [employer] [address] [place] [address] MANAGER ICU: LUIS TEMPLETON M.D. CLIA NUMBER [id number] [facility] [place]. [id number] [Automated message] The system which generated this result transmitted reference range: <=4.00. The reference range was not used to interpret this result as normal/abnormal. HEMOGLOBIN [id number] 03:27:40* Test Item Value Reference Range Interpretation Comme nts HEMOGLOBIN A1c (test code = 41004) 11.6 % 4.2-5.6 H [employer] GUIDELINES FOR HGB A1C: PREDIABETES/INCREASED RISK . . . . . . . 5.7-6.4% DIAGNOSIS OF DIABETES . . . . . . . . . >=6.5% WITH CONFIRMATION OR APPROPRIATE SYMPTOMS NOTE: ASSAY MAY BE AFFECTED BY HEMOGLOBINOPATHIES (SICKLE CELL ANEMIA, S-C DISEASE, OTHERS) OR ARTIFICIALLY LOWERED BY DECREASED RED CELL SURVIVAL (HEMOLYTIC ANEMIAS, BLOOD LOSS, ETC.). CONSIDER ALTERNATE TESTING OR LABORATORY CONSULTATION. CBC W/AUTO DIFF WITH [id number] 03:22:30* Test Item Value Reference Range Interpretation Comme nts WBC (test code = 1001) 7.3 K/UL 3.5-11.0 RBC (test code = 1002) 3.95 M/UL 4.50-6.10 L HEMOGLOBIN (test code = 1003) 11.7 G/DL 13.5-17.0 L HEMATOCRIT (test code = 1004) 34.1 % 40.0-51.0 L MCV (test code = 1005) 86.3 fL 80.0-99.0 MCH (test code = 1006) 29.6 PG 25.0-33.0 MCHC (test code = 1007) 34.3 G/DL 31.0-36.0 RDW (test code = 1038) 13.0 % 11.5-15.0 NEUTROPHILS (test code = 1008) 52.3 % LYMPHOCYTES (test code = 1010) 35.1 % MONOCYTES (test code = 1011) 7.4 % EOSINOPHILS (test code = 1012) 4.0 % BASOPHILS (test code = 1013) 1.1 % IMMATURE GRANULOCYTES (test code = 1036) 0.1 % NUCLEATED RBCS (test code = 1065) 0.0 /100 WBC'S See_Comment [Automated [employer]a ge] The system which generated this result transmitted reference range: 0.0. The reference range was not used to interpret this result as normal/abnormal. PLATELET COUNT (test code = 1015) 303 K/UL 130-400 ABSOLUTE NEUTROPHILS (test code = 1066) 3.81 K/UL 1.50-7.50 ABSOLUTE LYMPHOCYTES (test code = 1067) 2.56 K/UL 1.00-4.00 ABSOLUTE MONOCYTES (test code = 1068) 0.54 K/UL 0.20-1.00 ABSOLUTE EOSINOPHILS (test code = 1040) 0.29 K/UL 0.00-0.50 ABSOLUTE BASOPHILS (test code = 1069) 0.08 K/UL 0.00-0.20 ABS IMMATURE GRANULOCYTES (test code = 1020) 0.01 K/UL 0.00-0.10 ABS NUCLEATED RBCS (test code = 36643) 0.00 K/UL 0.00-0.11 HEMOGLOBIN [id number] 00:00:00* Test Item Value Reference Range Interpretation Comme nts HEMOGLOBIN A1c (test code = 50384) 11.6 % HEMOGLOBIN [id number] 00:00:00* Test Item Value Reference Range Interpretation Comme nts HEMOGLOBIN A1c (test code = 93669) 11.6 % HEMOGLOBIN [id number] 00:00:00* Test Item Value Reference Range Interpretation Comme nts HEMOGLOBIN A1c (test code = 34523) 11.6 % CBC W/AUTO [id number] 00:00:00* Test Item Value Reference Range Interpretation Comme nts WBC (test code = 1001) 7.3 K/UL RBC (test code = 1002) 3.95 M/UL HEMOGLOBIN (test code = 1003) 11.7 G/DL HEMATOCRIT (test code = 1004) 34.1 % MCV (test code = 1005) 86.3 fL MCH (test code = 1006) 29.6 PG MCHC (test code = 1007) 34.3 G/DL RDW (test code = 1038) 13.0 % NEUTROPHILS (test code = 1008) 52.3 % LYMPHOCYTES (test code = 1010) 35.1 % MONOCYTES (test code = 1011) 7.4 % EOSINOPHILS (test code = 1012) 4.0 % BASOPHILS (test code = 1013) 1.1 % IMMATURE GRANULOCYTES (test code = 1036) 0.1 % NUCLEATED RBCS (test code = 1065) 0.0 /100WBC'S PLATELET COUNT (test code = 1015) 303 K/UL ABSOLUTE NEUTROPHILS (test c ode = 1066) 3.81 K/UL ABSOLUTE LYMPHOCYTES (test c ode = 1067) 2.56 K/UL ABSOLUTE MONOCYTES (test cod e = 1068) 0.54 K/UL ABSOLUTE EOSINOPHILS (test c ode = 1040) 0.29 K/UL ABSOLUTE BASOPHILS (test cod e = 1069) 0.08 K/UL ABS IMMATURE GRANULOCYTES (t est code = 1020) 0.01 K/UL ABS NUCLEATED RBCS (test cod e = 34947) 0.00 K/UL CBC W/AUTO [id number] 00:00:00* Test Item Value Reference Range Interpretation Comme nts WBC (test code = 1001) 7.3 K/UL RBC (test code = 1002) 3.95 M/UL HEMOGLOBIN (test code = 1003) 11.7 G/DL HEMATOCRIT (test code = 1004) 34.1 % MCV (test code = 1005) 86.3 fL MCH (test code = 1006) 29.6 PG MCHC (test code = 1007) 34.3 G/DL RDW (test code = 1038) 13.0 % NEUTROPHILS (test code = 1008) 52.3 % LYMPHOCYTES (test code = 1010) 35.1 % MONOCYTES (test code = 1011) 7.4 % EOSINOPHILS (test code = 1012) 4.0 % BASOPHILS (test code = 1013) 1.1 % IMMATURE GRANULOCYTES (test code = 1036) 0.1 % NUCLEATED RBCS (test code = 1065) 0.0 /100WBC'S PLATELET COUNT (test code = 1015) 303 K/UL ABSOLUTE NEUTROPHILS (test c ode = 1066) 3.81 K/UL ABSOLUTE LYMPHOCYTES (test c ode = 1067) 2.56 K/UL ABSOLUTE MONOCYTES (test cod e = 1068) 0.54 K/UL ABSOLUTE EOSINOPHILS (test c ode = 1040) 0.29 K/UL ABSOLUTE BASOPHILS (test cod e = 1069) 0.08 K/UL ABS IMMATURE GRANULOCYTES (t est code = 1020) 0.01 K/UL ABS NUCLEATED RBCS (test cod e = 74030) 0.00 K/UL CBC W/AUTO [id number] 00:00:00* Test Item Value Reference Range Interpretation Comme nts WBC (test code = 1001) 7.3 K/UL RBC (test code = 1002) 3.95 M/UL HEMOGLOBIN (test code = 1003) 11.7 G/DL HEMATOCRIT (test code = 1004) 34.1 % MCV (test code = 1005) 86.3 fL MCH (test code = 1006) 29.6 PG MCHC (test code = 1007) 34.3 G/DL RDW (test code = 1038) 13.0 % NEUTROPHILS (test code = 1008) 52.3 % LYMPHOCYTES (test code = 1010) 35.1 % MONOCYTES (test code = 1011) 7.4 % EOSINOPHILS (test code = 1012) 4.0 % BASOPHILS (test code = 1013) 1.1 % IMMATURE GRANULOCYTES (test code = 1036) 0.1 % NUCLEATED RBCS (test code = 1065) 0.0 /100WBC'S PLATELET COUNT (test code = 1015) 303 K/UL ABSOLUTE NEUTROPHILS (test c ode = 1066) 3.81 K/UL ABSOLUTE LYMPHOCYTES (test c ode = 1067) 2.56 K/UL ABSOLUTE MONOCYTES (test cod e = 1068) 0.54 K/UL ABSOLUTE EOSINOPHILS (test c ode = 1040) 0.29 K/UL ABSOLUTE BASOPHILS (test cod e = 1069) 0.08 K/UL ABS IMMATURE GRANULOCYTES (t est code = 1020) 0.01 K/UL ABS NUCLEATED RBCS (test cod e = 05564) 0.00 K/UL COMPREHENSIVE METABOLIC [id number] 00:00:00* Test Item Value Reference Range Interpretation Comme nts GLUCOSE (test code = 2217) 343 MG/DL BUN (test code = 2208) 28 MG/DL CREATININE (test code = 2214) 1.22 MG/DL eGFR (2020 CKD-EPI) (test co de = 30522) 69 ML/MIN/1.73 CALC BUN/CREAT (test code = 2235) 23 RATIO SODIUM (test code = 2231) 132 MEQ/L POTASSIUM (test code = 2228) 4.6 MEQ/L CHLORIDE (test code = 2215) 97 MEQ/L CARBON DIOXIDE (test code = 2206) 21 MEQ/L CALCIUM (test code = 2209) 9.5 MG/DL PROTEIN, TOTAL (test code = 2229) 7.6 G/DL ALBUMIN (test code = 2201) 4.1 G/DL CALC GLOBULIN (test code = 2240) 3.5 G/DL CALC A/G RATIO (test code = 2234) 1.2 RATIO BILIRUBIN, TOTAL (test code = 2207) 0.8 MG/DL ALKALINE PHOSPHATASE (test code = 2204) 101 U/L AST (test code = 2218) 14 U/L ALT (test code = 2219) 12 U/L COMPREHENSIVE METABOLIC [id number] 00:00:00* Test Item Value Reference Range Interpretation Comme nts GLUCOSE (test code = 2217) 343 MG/DL BUN (test code = 2208) 28 MG/DL CREATININE (test code = 2214) 1.22 MG/DL eGFR (2020 CKD-EPI) (test co de = 04118) 69 ML/MIN/1.73 CALC BUN/CREAT (test code = 2235) 23 RATIO SODIUM (test code = 2231) 132 MEQ/L POTASSIUM (test code = 2228) 4.6 MEQ/L CHLORIDE (test code = 2215) 97 MEQ/L CARBON DIOXIDE (test code = 2206) 21 MEQ/L CALCIUM (test code = 2209) 9.5 MG/DL PROTEIN, TOTAL (test code = 2229) 7.6 G/DL ALBUMIN (test code = 2201) 4.1 G/DL CALC GLOBULIN (test code = 2240) 3.5 G/DL CALC A/G RATIO (test code = 2234) 1.2 RATIO BILIRUBIN, TOTAL (test code = 2207) 0.8 MG/DL ALKALINE PHOSPHATASE (test code = 2204) 101 U/L AST (test code = 2218) 14 U/L ALT (test code = 2219) 12 U/L LIPID [id number] 00:00:00* Test Item Value Reference Range Interpretation Comme nts CHOLESTEROL (test code = 2210) 205 MG/DL TRIGLYCERIDES (test code = 2232) 260 MG/DL HDL CHOLESTEROL (test code = 2220) 50 MG/DL CALC LDL CHOL (test code = 2237) 118 MG/DL RISK RATIO LDL/HDL (test cod e = 2238) 2.36 RATIO LIPID [id number] 00:00:00* Test Item Value Reference Range Interpretation Comme nts CHOLESTEROL (test code = 2210) 205 MG/DL TRIGLYCERIDES (test code = 2232) 260 MG/DL HDL CHOLESTEROL (test code = 2220) 50 MG/DL CALC LDL CHOL (test code = 2237) 118 MG/DL RISK RATIO LDL/HDL (test cod e = 2238) 2.36 RATIO PSA, [id number] 00:00:00* Test Item Value Reference Range Interpretation Comme nts PSA, TOTAL (test code = 2606) 0.61 NG/ML PSA, [id number] 00:00:00* Test Item Value Reference Range Interpretation Comme nts PSA, TOTAL (test code = 2606) 0.61 NG/ML PSA, [id number] 00:00:00* Test Item Value Reference Range Interpretation Comme nts PSA, TOTAL (test code = 2606) 0.61 NG/ML HEMOGLOBIN [id number] 00:00:00* Test Item Value Reference Range Interpretation Comme nts HEMOGLOBIN A1c (test code = 71219) 11.6 % HEMOGLOBIN [id number] 00:00:00* Test Item Value Reference Range Interpretation Comme nts HEMOGLOBIN A1c (test code = 64804) 11.6 % HEMOGLOBIN [id number] 00:00:00* Test Item Value Reference Range Interpretation Comme nts HEMOGLOBIN A1c (test code = 68414) 11.6 % CBC W/AUTO [id number] 00:00:00* Test Item Value Reference Range Interpretation Comme nts WBC (test code = 1001) 7.3 K/UL RBC (test code = 1002) 3.95 M/UL HEMOGLOBIN (test code = 1003) 11.7 G/DL HEMATOCRIT (test code = 1004) 34.1 % MCV (test code = 1005) 86.3 fL MCH (test code = 1006) 29.6 PG MCHC (test code = 1007) 34.3 G/DL RDW (test code = 1038) 13.0 % NEUTROPHILS (test code = 1008) 52.3 % LYMPHOCYTES (test code = 1010) 35.1 % MONOCYTES (test code = 1011) 7.4 % EOSINOPHILS (test code = 1012) 4.0 % BASOPHILS (test code = 1013) 1.1 % IMMATURE GRANULOCYTES (test code = 1036) 0.1 % NUCLEATED RBCS (test code = 1065) 0.0 /100WBC'S PLATELET COUNT (test code = 1015) 303 K/UL ABSOLUTE NEUTROPHILS (test c ode = 1066) 3.81 K/UL ABSOLUTE LYMPHOCYTES (test c ode = 1067) 2.56 K/UL ABSOLUTE MONOCYTES (test cod e = 1068) 0.54 K/UL ABSOLUTE EOSINOPHILS (test c ode = 1040) 0.29 K/UL ABSOLUTE BASOPHILS (test cod e = 1069) 0.08 K/UL ABS IMMATURE GRANULOCYTES (t est code = 1020) 0.01 K/UL ABS NUCLEATED RBCS (test cod e = 18538) 0.00 K/UL CBC W/AUTO [id number] 00:00:00* Test Item Value Reference Range Interpretation Comme nts WBC (test code = 1001) 7.3 K/UL RBC (test code = 1002) 3.95 M/UL HEMOGLOBIN (test code = 1003) 11.7 G/DL HEMATOCRIT (test code = 1004) 34.1 % MCV (test code = 1005) 86.3 fL MCH (test code = 1006) 29.6 PG MCHC (test code = 1007) 34.3 G/DL RDW (test code = 1038) 13.0 % NEUTROPHILS (test code = 1008) 52.3 % LYMPHOCYTES (test code = 1010) 35.1 % MONOCYTES (test code = 1011) 7.4 % EOSINOPHILS (test code = 1012) 4.0 % BASOPHILS (test code = 1013) 1.1 % IMMATURE GRANULOCYTES (test code = 1036) 0.1 % NUCLEATED RBCS (test code = 1065) 0.0 /100WBC'S PLATELET COUNT (test code = 1015) 303 K/UL ABSOLUTE NEUTROPHILS (test c ode = 1066) 3.81 K/UL ABSOLUTE LYMPHOCYTES (test c ode = 1067) 2.56 K/UL ABSOLUTE MONOCYTES (test cod e = 1068) 0.54 K/UL ABSOLUTE EOSINOPHILS (test c ode = 1040) 0.29 K/UL ABSOLUTE BASOPHILS (test cod e = 1069) 0.08 K/UL ABS IMMATURE GRANULOCYTES (t est code = 1020) 0.01 K/UL ABS NUCLEATED RBCS (test cod e = 65649) 0.00 K/UL CBC W/AUTO [id number] 00:00:00* Test Item Value Reference Range Interpretation Comme nts WBC (test code = 1001) 7.3 K/UL RBC (test code = 1002) 3.95 M/UL HEMOGLOBIN (test code = 1003) 11.7 G/DL HEMATOCRIT (test code = 1004) 34.1 % MCV (test code = 1005) 86.3 fL MCH (test code = 1006) 29.6 PG MCHC (test code = 1007) 34.3 G/DL RDW (test code = 1038) 13.0 % NEUTROPHILS (test code = 1008) 52.3 % LYMPHOCYTES (test code = 1010) 35.1 % MONOCYTES (test code = 1011) 7.4 % EOSINOPHILS (test code = 1012) 4.0 % BASOPHILS (test code = 1013) 1.1 % IMMATURE GRANULOCYTES (test code = 1036) 0.1 % NUCLEATED RBCS (test code = 1065) 0.0 /100WBC'S PLATELET COUNT (test code = 1015) 303 K/UL ABSOLUTE NEUTROPHILS (test c ode = 1066) 3.81 K/UL ABSOLUTE LYMPHOCYTES (test c ode = 1067) 2.56 K/UL ABSOLUTE MONOCYTES (test cod e = 1068) 0.54 K/UL ABSOLUTE EOSINOPHILS (test c ode = 1040) 0.29 K/UL ABSOLUTE BASOPHILS (test cod e = 1069) 0.08 K/UL ABS IMMATURE GRANULOCYTES (t est code = 1020) 0.01 K/UL ABS NUCLEATED RBCS (test cod e = 99970) 0.00 K/UL COMPREHENSIVE METABOLIC [id number] 00:00:00* Test Item Value Reference Range Interpretation Comme nts GLUCOSE (test code = 2217) 343 MG/DL BUN (test code = 2208) 28 MG/DL CREATININE (test code = 2214) 1.22 MG/DL eGFR (2020 CKD-EPI) (test co de = 83706) 69 ML/MIN/1.73 CALC BUN/CREAT (test code = 2235) 23 RATIO SODIUM (test code = 2231) 132 MEQ/L POTASSIUM (test code = 2228) 4.6 MEQ/L CHLORIDE (test code = 2215) 97 MEQ/L CARBON DIOXIDE (test code = 2206) 21 MEQ/L CALCIUM (test code = 2209) 9.5 MG/DL PROTEIN, TOTAL (test code = 2229) 7.6 G/DL ALBUMIN (test code = 2201) 4.1 G/DL CALC GLOBULIN (test code = 2240) 3.5 G/DL CALC A/G RATIO (test code = 2234) 1.2 RATIO BILIRUBIN, TOTAL (test code = 2207) 0.8 MG/DL ALKALINE PHOSPHATASE (test code = 2204) 101 U/L AST (test code = 2218) 14 U/L ALT (test code = 2219) 12 U/L COMPREHENSIVE METABOLIC [id number] 00:00:00* Test Item Value Reference Range Interpretation Comme nts GLUCOSE (test code = 2217) 343 MG/DL BUN (test code = 2208) 28 MG/DL CREATININE (test code = 2214) 1.22 MG/DL eGFR (2020 CKD-EPI) (test co de = 32691) 69 ML/MIN/1.73 CALC BUN/CREAT (test code = 2235) 23 RATIO SODIUM (test code = 2231) 132 MEQ/L POTASSIUM (test code = 2228) 4.6 MEQ/L CHLORIDE (test code = 2215) 97 MEQ/L CARBON DIOXIDE (test code = 2206) 21 MEQ/L CALCIUM (test code = 2209) 9.5 MG/DL PROTEIN, TOTAL (test code = 2229) 7.6 G/DL ALBUMIN (test code = 2201) 4.1 G/DL CALC GLOBULIN (test code = 2240) 3.5 G/DL CALC A/G RATIO (test code = 2234) 1.2 RATIO BILIRUBIN, TOTAL (test code = 2207) 0.8 MG/DL ALKALINE PHOSPHATASE (test code = 2204) 101 U/L AST (test code = 2218) 14 U/L ALT (test code = 2219) 12 U/L LIPID [id number] 00:00:00* Test Item Value Reference Range Interpretation Comme nts CHOLESTEROL (test code = 2210) 205 MG/DL TRIGLYCERIDES (test code = 2232) 260 MG/DL HDL CHOLESTEROL (test code = 2220) 50 MG/DL CALC LDL CHOL (test code = 2237) 118 MG/DL RISK RATIO LDL/HDL (test cod e = 2238) 2.36 RATIO LIPID [id number] 00:00:00* Test Item Value Reference Range Interpretation Comme nts CHOLESTEROL (test code = 2210) 205 MG/DL TRIGLYCERIDES (test code = 2232) 260 MG/DL HDL CHOLESTEROL (test code = 2220) 50 MG/DL CALC LDL CHOL (test code = 2237) 118 MG/DL RISK RATIO LDL/HDL (test cod e = 2238) 2.36 RATIO PSA, [id number] 00:00:00* Test Item Value Reference Range Interpretation Comme nts PSA, TOTAL (test code = 2606) 0.61 NG/ML PSA, [id number] 00:00:00* Test Item Value Reference Range Interpretation Comme nts PSA, TOTAL (test code = 2606) 0.61 NG/ML PSA, [id number] 00:00:00* Test Item Value Reference Range Interpretation Comme nts PSA, TOTAL (test code = 2606) 0.61 NG/ML POCT GLUCOSE (AUTOMATED)2022-02-22 17:01:00* Test Item Value Reference Range Interpretation Comme nts POCT GLU (test code = 9107879576) 115 mg/dL 70-110 H Lab Interpretation (test cod e = 53059-4) Abnormal [facility] GLUCOSE (AUTOMATED)2022-02-22 12:49:14* Test Item Value Reference Range Interpretation Comme nts POCT GLU (test code = 8345220639) 82 mg/dL 70-110 Lab Interpretation (test cod e = 07931-8) Normal [facility] WITH [id number] 11:36:10* Test Item Value Reference Range Interpretation Comme nts WBC (test code = 6690-2) See_Comment [Automated messa ge] The system which generated this result transmitted reference range: 4.20 - 10.70 10*3/?L. The reference range was not used to interpret this result as normal/abnormal. RBC (test code = 789-8) See_Comment L [Automated messa ge] The system which generated this result transmitted reference range: 4.26 - 5.52 10*6/?L. The reference range was not used to interpret this result as normal/abnormal. HGB (test code = 718-7) 11.7 g/dL 12.2-16.4 L HCT (test code = 4544-3) 34.5 % 38.4-49.3 L MCV (test code = 787-2) 85.8 fL 81.7-95.6 MCH (test code = 785-6) 29.1 pg 26.1-32.7 MCHC (test code = 786-4) 33.9 g/dL 31.2-35.0 RDW-SD (test code = 57774-5) 38.8 fL 38.5-51.6 RDW-CV (test code = 788-0) 12.3 % 12.1-15.4 PLT (test code = 777-3) See_Comment [Automated messa ge] The system which generated this result transmitted reference range: 150 - 328 10*3/?L. The reference range was not used to interpret this result as normal/abnormal. MPV (test code = 05903-5) 11.7 fL 9.8-13.0 NRBC/100 WBC (test code = 1490750847) See_Comment [Automated me ssage] The system which generated this result transmitted reference range: 0.0 - 10.0 /100 WBCs. The reference range was not used to interpret this result as normal/abnormal. NRBC x10^3 (test code = 6964212853) <0.01 See_Comment [Automated messa ge] The system which generated this result transmitted reference range: 10*3/?L. The reference range was not used to interpret this result as normal/abnormal. GRAN MAT (NEUT) % (test code = 770-8) 46.3 % IMM GRAN % (test code = 4821258225) 0.20 % LYMPH % (test code = 736-9) 37.7 % MONO % (test code = 5905-5) 9.4 % EOS % (test code = 713-8) 4.9 % BASO % (test code = 706-2) 1.5 % GRAN MAT x10^3(ANC) (test code = 9458740352) 2.71 10*3/uL 1.99-6.95 IMM GRAN x10^3 (test code = 7815147544) <0.03 0.00-0.06 LYMPH x10^3 (test code = 731-0) 2.21 10*3/uL 1.09-3.23 MONO x10^3 (test code = 742-7) 0.55 10*3/uL 0.36-1.02 EOS x10^3 (test code = 711-2) 0.29 10*3/uL 0.06-0.53 BASO x10^3 (test code = 704-7) 0.09 10*3/uL 0.01-0.09 Lab Interpretation (test code = 64319-1) Abnormal [facility] METABOLIC PANEL (NA, K, CL, CO2, GLUCOSE, BUN, CREATININE, CA)2022-02-22 11:11:25* Test Item Value Reference Range Interpretation Comme nts NA (test code = 4220989061) 138 mmol/L 135-145 K (test code = 3158602077) 3.3 mmol/L 3.5-5.0 L CL (test code = 5131870048) 103 mmol/L 98-108 CO2 TOTAL (test code = 7612326556) 28 mmol/L 23-31 AGAP (test code = 7241546967) 2-16 BUN (test code = 0688336078) 12 mg/dL 7-23 GLUCOSE (test code = 8771715579) 93 mg/dL 70-110 CREATININE (test code = 0148376490) 0.79 mg/dL 0.60-1.25 CALCIUM (test code = 7786515316) 7.9 mg/dL 8.6-10.6 L eGFR (test code = 9371482999) mL/min/1.73m2 SHIKHA (test code = SHIKHA) Association of Glomerular Filtration Rate (GFR) and Staging of Kidney Disease* + --+ --+ ------+| GFR (mL/min/1.73 m2) ?| With Kidney Damage ?| ?Without Kidney Damage+ --------+ --------+ +| ?>90 ?| ?Stage one ?| ? Normal ?+ ---+ ---+ -------+| ?60-89 ?| ?Stage two ?| ? Decreased GFR ? + --+ --+ ------+| ?30-59 ?| ?Stage three ?| ? Stage three ? + --+ --+ ------+| ?15-29 ?| ?Stage four ? | ? Stage four ?+ ---+ ---+ -------+| ?<15 (or dialysis) ? ?| ?Stage five ? | ? Stage five ?+ ---+ ---+ -------+ *Each stage assumes the associated GFR level has been in effect for at least three months. ?Stages 1 to 5, with or without kidney disease, indicate chronic kidney disease. Notes: Determination of stages one and two (with eGFR >59mL/min/1.73 m2) requires estimation of kidney damage for at least three months as defined by structural or functional abnormalities of the kidney, manifested by either:Pathological abnormalities or Markers of kidney damage (including abnormalities in the composition of the blood or urine or abnormalities in imaging tests). Lab Interpretation (test code = 21863-2) Abnormal [facility] GLUCOSE (AUTOMATED)2022-02-22 02:35:32* Test Item Value Reference Range Interpretation Comme [facility] POCT GLU (test code = 6993922480) 146 mg/dL 70-110 H Lab Interpretation (test cod e = 70480-2) Abnormal [facility] GLUCOSE (AUTOMATED)2022-02-22 01:37:51* Test Item Value Reference Range Interpretation Comme [facility] POCT GLU (test code = 1480325467) 167 mg/dL 70-110 H Lab Interpretation (test cod e = 87091-3) [facility] Test Item Value Reference Range Interpretation Comme nts Procalcitonin (test code = 9850746813) 0.04 ng/mL <0.07 SHIKHA (test code = SHIKHA) INTERPRETATION OF PROCALCITONIN RESULTS IN ADULTS >= 18 YEARS OF AGE Initiation and discontinuation of antibiotics on patients with suspected or confirmed Lower Respiratory Tract Infection in Adults >= 18 years of age. + +-------- --------+ + -----+|Procalcitonin |Interpretation ?|Antibiotic ? ? |Considerations ? |ng/mL ? | ?|recommendation | ? + +-------- --------+ + -----+| <0.1 ? | Bacterial ? ? ?| Strongly ? ? ?| ? | ?| infection very | discouraged ? | Overruling: ? | ?| unlikely ? ? ? | ? | ? Clinically unstable ? ? ? + +-------- --------+ + ? High risk for adverse ? ? | <0.25 ?| Bacterial ? ? ?| Discouraged ? | ? outcome ? | ?| infection ? ? ?| ? | ? SEE IMPORTANT NOTE ?| ?| unlikely ? ? ? | ? | ? + +-------- --------+ + -----+| >=0.25 ? ? ? | Bacterial ? ? ?| Encouraged ? ?| ? | ?| infection ? ? ?| ? | ? | ?| likely ? | ? | Consider treatment failure ?+ +------- ---------+ -+ if levels does not decrease | >0.5 ? | Bacterial ? ? ?| Strongly ? ? ?| appropriately ? | ?| infection very | encouraged ? ?| ? | ?| likely ? | ? | ? + +-------- --------+ + -----+ Discontinuation of antibiotics in high-acuity patients with suspected or confirmed sepsis in Adults >= 18 years of age. + +-------- --------+ + -----+|Procalcitonin |Interpretation ?|Antibiotic ? ? |Considerations ? |ng/mL ? | ?|recommendation | ? + +-------- --------+ + -----+| <0.25 ?| Bacterial ? ? ?| Strongly ? ? ?| ? | ?| infection very | discouraged ? | Overruling: ? | ?| unlikely ? ? ? | ? | ? Clinically unstable ? ? ? + +-------- --------+ + ? High risk for adverse ? ? | <0.5 or drop | Bacterial ? ? ?| Discouraged ? | ? outcome ? | >80% from ? ?| infection ? ? ?| ? | ? SEE IMPORTANT NOTE ?| highest PCT ?| unlikely ? ? ? | ? | ? | level ?| ?| ? | ? + +-------- --------+ + -----+| >=0.5 ?| Bacterial ? ? ?| Encouraged ? ?| ? | ?| infection ? ? ?| ? | ? | ?| likely ? | ? | Consider treatment failure ?+ +------- ---------+ -+ if levels does not decrease | >1.0 ? | Bacterial ? ? ?| Strongly ? ? ?| appropriately ? | ?| infection very | encouraged ? ?| ? | ?| likely ? | ? | ? + +-------- --------+ + -----+ Percentage of drop of Procalcitonin calculation for Discontinuation of antibiotics in high-acuity patients with suspected or confirmed sepsis in Adults >= 18 years of age. ? Procalcitonin highest{}-Procalcitonin current{}Delta Procalcitonin = x100% ? Procalcitonin current {} IMPORTANT NOTE: Procalcitonin may be elevated without bacterial infection by physiologic stress related to trauma, medley, chronic dialysis, metastatic cancer, surgery in the past seven days, malaria, some fungal infections, and some forms of vasculitis. The interpretation algorithm may not apply to patients with immunosuppression (equivalent of >10 mg of prednisone daily), HIV with CD4 cell count < 350 cells/mm3, active malignancy on systemic chemotherapy, solid organ transplant or hematopoietic stem cell transplantation, or hospital acquired pneumonia. Additionally, some clinical trials of procalcitonin have excluded patients with shock requiring vasopressor use, acute respiratory failure requiring mechanical ventilation, or those with known lung abscess/empyema. For further information please refer to:[email or web address] Lab Interpretation (test code = 77418-9) [facility] 17:08:12* Test Item Value Reference Range Interpretation Comme [facility] POCT GLU (test code = 6981783848) 135 mg/dL 70-110 H Lab Interpretation (test cod e = 70963-0) [facility]normal [facility] [id number] 16:59:06* Test Item Value Reference Range Interpretation Comme nts URIC ACID (test code = 4200720650) 5.1 mg/dL 3.6-8.0 Lab Interpretation (test cod e = 50822-0) Normal [facility]2022-[facility] 16:59:06* Test Item Value Reference Range Interpretation Comme nts PHOSPHORUS (test code = 9516841626) 3.0 mg/dL 2.5-5.0 Lab Interpretation (test cod e = 18942-7) Normal [facility] WestLIPID PANEL (26947)(TOTAL CHOLESTEROL, TRIGLYCERIDES, HDL)2022-02-21 16:33:11* Test Item Value Reference Range Interpretation Comme nts CHOL (test code = 1129662562) 188 mg/dL 120-200 HDL (test code = 7552009613) 41 mg/dL >40 HDLC RATIO (test code = 7172196123) See_Comment [Automated [employer]] The system which generated this result transmitted reference range: <=5.0. The reference range was not used to interpret this result as normal/abnormal. TRIG (test code = 0254496037) 135 mg/dL 30-170 LDL CHOL (test code = 10027-2) 120 mg/dL See_Comment [Automated messa ge] The system which generated this result transmitted reference range: <=160. The reference range was not used to interpret this result as normal/abnormal. VLDL (test code = 4061859547) 27 mg/dL 5-60 Lab Interpretation (test code = 21892-1) Normal [facility] D, [id number] 15:40:21* Test Item Value Reference Range Interpretation Comme [facility] VIT D 25OH (test code = 06398-7) 13 ng/mL 25-80 L SHIKHA (test code = SHIKHA) Deficiency: <20 ng/mLInsufficiency: 20-24 ng/mLOptimal: 25-80 ng/mL Lab Interpretation (test code = 31424-0) Abnormal [facility]C-REACTIVE [id number] 14:05:28* Test Item Value Reference Range Interpretation Comme [facility] CRP (test code = 7424644037) 1.7 mg/dL <0.8 H Lab Interpretation (test cod e = 55009-2) [facility]normal [facility]2022-[facility]-21 13:24:57* Test Item Value Reference Range Interpretation Comme [facility] POCT GLU (test code = 7832439074) 61 mg/dL 70-110 L Lab Interpretation (test cod e = 96293-7) Abnormal [facility] WestN-TERMINAL [id number] 10:27:39* Test Item Value Reference Range Interpretation Comme [facility] NT-proBNP (test code = 3256973849) 215 pg/mL See_Comment H [Automated message] The system which generated this result transmitted reference range: <=125. The reference range was not used to interpret this result as normal/abnormal. SHIKHA (test code = SHIKHA) Biotin has been reported to cause a negative bias, interpret results relative to patient's use of biotin. Lab Interpretation (test code = 74776-8) Abnormal [facility]MAGNESIUM2022-04-20 10:20:41* Test Item Value Reference Range Interpretation Comme nts MAGNESIUM (test code = 0095596756) 1.6 mg/dL 1.7-2.4 L Lab Interpretation (test cod e = 14643-6) Abnormal [facility]. METABOLIC PANEL (45442)2022-02-21 10:20:41* Test Item Value Reference Range Interpretation Comme nts NA (test code = 2006642728) 138 mmol/L 135-145 K (test code = 2143719694) 3.5 mmol/L 3.5-5.0 CL (test code = 3032208672) 103 mmol/L 98-108 CO2 TOTAL (test code = 7393290107) 28 mmol/L 23-31 AGAP (test code = 4859712239) 2-16 BUN (test code = 7860045123) 13 mg/dL 7-23 GLUCOSE (test code = 9139706912) 190 mg/dL 70-110 H CREATININE (test code = 9377340065) 0.84 mg/dL 0.60-1.25 TOTAL BILI (test code = 1784566622) 0.9 mg/dL 0.1-1.1 CALCIUM (test code = 5741030619) 8.2 mg/dL 8.6-10.6 L T PROTEIN (test code = 5651552420) 6.3 g/dL 6.3-8.2 ALBUMIN (test code = 4417394197) 3.2 g/dL 3.5-5.0 L ALK PHOS (test code = 7929230996) 78 U/L 34-122 ALTv (test code = 1742-6) 11 U/L 5-50 AST(SGOT) (test code = 0880761125) 19 U/L 13-40 eGFR (test code = 6573926465) mL/min/1.73m2 SHIKHA (test code = SHIKHA) Association of Glomerular Filtration Rate (GFR) and Staging of Kidney Disease* + --+ --+ ------+| GFR (mL/min/1.73 m2) ?| With Kidney Damage ?| ?Without Kidney Damage+ --------+ --------+ +| ?>90 ?| ?Stage one ?| ? Normal ?+ ---+ ---+ -------+| ?60-89 ?| ?Stage two ?| ? Decreased GFR ? + --+ --+ ------+| ?30-59 ?| ?Stage three ?| ? Stage three ? + --+ --+ ------+| ?15-29 ?| ?Stage four ? | ? Stage four ?+ ---+ ---+ -------+| ?<15 (or dialysis) ? ?| ?Stage five ? | ? Stage five ?+ ---+ ---+ -------+ *Each stage assumes the associated GFR level has been in effect for at least three months. ?Stages 1 to 5, with or without kidney disease, indicate chronic kidney disease. Notes: Determination of stages one and two (with eGFR >59mL/min/1.73 m2) requires estimation of kidney damage for at least three months as defined by structural or functional abnormalities of the kidney, manifested by either:Pathological abnormalities or Markers of kidney damage (including abnormalities in the composition of the blood or urine or abnormalities in imaging tests). Lab Interpretation (test code = 17111-0) Abnormal [facility] WestPROTHROMBIN TIME / [id number] 10:09:15* Test Item Value Reference Range Interpretation Comme nts PROTIME PATIENT (test code = 5964-2) See_Comment [Automated ROAM Data] The system which generated this result transmitted reference range: 12.0 - 14.7 Seconds. The reference range was not used to interpret this result as normal/abnormal. INR (test code = 6301-6) Normal INR <1.1; Warfarin Therapeutic range 2.0 to 3.0 or 2.5 to 3.5, depending upon the indications. Lab Interpretation (test code = 81477-9) Normal [facility] WestCBC WITH [id number] 09:56:36* Test Item Value Reference Range Interpretation Comme nts WBC (test code = 6690-2) See_Comment [Automated ROAM Data] The system which generated this result transmitted reference range: 4.20 - 10.70 10*3/?L. The reference range was not used to interpret this result as normal/abnormal. RBC (test code = 789-8) See_Comment L [Automated [employer]] The system which generated this result transmitted reference range: 4.26 - 5.52 10*6/?L. The reference range was not used to interpret this result as normal/abnormal. HGB (test code = 718-7) 11.0 g/dL 12.2-16.4 L HCT (test code = 4544-3) 32.1 % 38.4-49.3 L MCV (test code = 787-2) 85.4 fL 81.7-95.6 MCH (test code = 785-6) 29.3 pg 26.1-32.7 MCHC (test code = 786-4) 34.3 g/dL 31.2-35.0 RDW-SD (test code = 63231-6) 38.2 fL 38.5-51.6 L RDW-CV (test code = 788-0) 12.5 % 12.1-15.4 PLT (test code = 777-3) See_Comment [Automated messa ge] The system which generated this result transmitted reference range: 150 - 328 10*3/?L. The reference range was not used to interpret this result as normal/abnormal. MPV (test code = 58532-8) 12.0 fL 9.8-13.0 NRBC/100 WBC (test code = 4176144048) See_Comment [Automated Fronto ssage] The system which generated this result transmitted reference range: 0.0 - 10.0 /100 WBCs. The reference range was not used to interpret this result as normal/abnormal. NRBC x10^3 (test code = 6757751573) <0.01 See_Comment [Automated messa ge] The system which generated this result transmitted reference range: 10*3/?L. The reference range was not used to interpret this result as normal/abnormal. GRAN MAT (NEUT) % (test code = 770-8) 45.2 % IMM GRAN % (test code = 0980985942) 0.30 % LYMPH % (test code = 736-9) 37.5 % MONO % (test code = 5905-5) 10.2 % EOS % (test code = 713-8) 5.1 % BASO % (test code = 706-2) 1.7 % GRAN MAT x10^3(ANC) (test code = 7385521588) 2.64 10*3/uL 1.99-6.95 IMM GRAN x10^3 (test code = 3921028200) <0.03 0.00-0.06 LYMPH x10^3 (test code = 731-0) 2.20 10*3/uL 1.09-3.23 MONO x10^3 (test code = 742-7) 0.60 10*3/uL 0.36-1.02 EOS x10^3 (test code = 711-2) 0.30 10*3/uL 0.06-0.53 BASO x10^3 (test code = 704-7) 0.10 10*3/uL 0.01-0.09 H Lab Interpretation (test code = 53210-4) Abnormal [facility] GLUCOSE (AUTOMATED)2022-02-21 08:00:25* Test Item Value Reference Range Interpretation Comme nts POCT GLU (test code = 1060505827) 199 mg/dL 70-110 H Lab Interpretation (test cod e = 52544-1) [facility]normal [facility]IT[facility] B12, [id number] 07:16:33* Test Item Value Reference Range Interpretation Comme nts VIT B12 (test code = 2052771630) 363 pg/mL 240-930 SHIKHA (test code = SHIKHA) Biotin has been reported to cause a positive bias, interpret results relative to patient's use of biotin. Lab Interpretation (test code = 74286-5) Normal [facility] WestGLYCOSYLATED HEMOGLOBIN (A1C)2022-02-21 04:13:30* Test Item Value Reference Range Interpretation Comme nts HGB A1C (test code = 4548-4) 13.4 % 4.0-5.7 H SHIKHA (test code = SHIKHA) Reference RangesNormal: <5.7%Prediabetes: 5.7 - 6.4%Diabetes: > 6.5% Lab Interpretation (test code = 93329-9) Abnormal [facility] GLUCOSE (AUTOMATED)2022-02-21 04:10:59* Test Item Value Reference Range Interpretation Comme nts POCT GLU (test code = 2537465430) 329 mg/dL 70-110 H Lab Interpretation (test cod e = 44793-1) Abnormal [facility] GLUCOSE (AUTOMATED)2022-02-20 22:07:15* Test Item Value Reference Range Interpretation Comme nts POCT GLU (test code = 8840484316) 159 mg/dL 70-110 H Lab Interpretation (test cod e = 19362-9) Abnormal [facility] GLUCOSE (AUTOMATED)2022-02-20 18:59:37* Test Item Value Reference Range Interpretation Comme nts POCT GLU (test code = 7014303423) 173 mg/dL 70-110 H Lab Interpretation (test cod e = 03969-9) Abnormal [facility] GLUCOSE (AUTOMATED)2022-02-20 17:35:10* Test Item Value Reference Range Interpretation Comme nts POCT GLU (test code = 0260665420) 436 mg/dL 70-110 H Lab Interpretation (test cod e = 32503-7) Abnormal [facility] GLUCOSE (AUTOMATED)2022-02-20 17:35:10* Test Item Value Reference Range Interpretation Comme nts POCT GLU (test code = 9986865952) 526 mg/dL 70-110 HH Lab Interpretation (test cod e = 44233-2) Abnormal [facility] WestSEDIMENTATION [id number] 17:32:23* Test Item Value Reference Range Interpretation Comme nts ESR (test code = 8961338430) See_Comment H [Automated messa ge] The system which generated this result transmitted reference range: 0 - 10 mm/HR. The reference range was not used to interpret this result as normal/abnormal. Lab Interpretation (test code = 46777-6) Abnormal [facility]. Metabolic Panel (46349)2022-02-20 17:11:04* Test Item Value Reference Range Interpretation Comme nts NA (test code = 3786562762) 132 mmol/L 135-145 L K (test code = 9449376019) 4.4 mmol/L 3.5-5.0 CL (test code = 4444591222) 95 mmol/L 98-108 L CO2 TOTAL (test code = 2982219209) 21 mmol/L 23-31 L AGAP (test code = 4059095541) 2-16 BUN (test code = 2403937235) 15 mg/dL 7-23 GLUCOSE (test code = 0263583466) 601 mg/dL 70-110 HH CREATININE (test code = 4093946599) 0.86 mg/dL 0.60-1.25 TOTAL BILI (test code = 6320778070) 1.0 mg/dL 0.1-1.1 CALCIUM (test code = 8406518031) 8.8 mg/dL 8.6-10.6 T PROTEIN (test code = 1243013850) 7.4 g/dL 6.3-8.2 ALBUMIN (test code = 4081767396) 4.1 g/dL 3.5-5.0 ALK PHOS (test code = 1298739850) 129 U/L 34-122 H ALTv (test code = 1742-6) 13 U/L 5-50 AST(SGOT) (test code = 0565069647) 22 U/L 13-40 eGFR (test code = 7353152185) mL/min/1.73m2 SHIKHA (test code = SHIKHA) Association of Glomerular Filtration Rate (GFR) and Staging of Kidney Disease* + --+ --+ ------+| GFR (mL/min/1.73 m2) ?| With Kidney Damage ?| ?Without Kidney Damage+ --------+ --------+ +| ?>90 ?| ?Stage one ?| ? Normal ?+ ---+ ---+ -------+| ?60-89 ?| ?Stage two ?| ? Decreased GFR ? + --+ --+ ------+| ?30-59 ?| ?Stage three ?| ? Stage three ? + --+ --+ ------+| ?15-29 ?| ?Stage four ? | ? Stage four ?+ ---+ ---+ -------+| ?<15 (or dialysis) ? ?| ?Stage five ? | ? Stage five ?+ ---+ ---+ -------+ *Each stage assumes the associated GFR level has been in effect for at least three months. ?Stages 1 to 5, with or without kidney disease, indicate chronic kidney disease. Notes: Determination of stages one and two (with eGFR >59mL/min/1.73 m2) requires estimation of kidney damage for at least three months as defined by structural or functional abnormalities of the kidney, manifested by either:Pathological abnormalities or Markers of kidney damage (including abnormalities in the composition of the blood or urine or abnormalities in imaging tests). Lab Interpretation (test code = 09303-5) Abnormal [facility] with [id number] 16:55:35* Test Item Value Reference Range Interpretation Comme nts WBC (test code = 6690-2) See_Comment [Automated messa ge] The system which generated this result transmitted reference range: 4.20 - 10.70 10*3/?L. The reference range was not used to interpret this result as normal/abnormal. RBC (test code = 789-8) See_Comment [Automated messa ge] The system which generated this result transmitted reference range: 4.26 - 5.52 10*6/?L. The reference range was not used to interpret this result as normal/abnormal. HGB (test code = 718-7) 12.7 g/dL 12.2-16.4 HCT (test code = 4544-3) 37.6 % 38.4-49.3 L MCV (test code = 787-2) 86.0 fL 81.7-95.6 MCH (test code = 785-6) 29.1 pg 26.1-32.7 MCHC (test code = 786-4) 33.8 g/dL 31.2-35.0 RDW-SD (test code = 83641-7) 38.5 fL 38.5-51.6 RDW-CV (test code = 788-0) 12.2 % 12.1-15.4 PLT (test code = 777-3) See_Comment [Automated messa ge] The system which generated this result transmitted reference range: 150 - 328 10*3/?L. The reference range was not used to interpret this result as normal/abnormal. MPV (test code = 80287-6) 11.6 fL 9.8-13.0 NRBC/100 WBC (test code = 0336544853) See_Comment [Automated Fronto ssage] The system which generated this result transmitted reference range: 0.0 - 10.0 /100 WBCs. The reference range was not used to interpret this result as normal/abnormal. NRBC x10^3 (test code = 8442994739) <0.01 See_Comment [Automated messa ge] The system which generated this result transmitted reference range: 10*3/?L. The reference range was not used to interpret this result as normal/abnormal. GRAN MAT (NEUT) % (test code = 770-8) 57.9 % IMM GRAN % (test code = 9565561063) 0.10 % LYMPH % (test code = 736-9) 30.5 % MONO % (test code = 5905-5) 7.5 % EOS % (test code = 713-8) 3.0 % BASO % (test code = 706-2) 1.0 % GRAN MAT x10^3(ANC) (test code = 4478954822) 4.08 10*3/uL 1.99-6.95 IMM GRAN x10^3 (test code = 4306171133) <0.03 0.00-0.06 LYMPH x10^3 (test code = 731-0) 2.15 10*3/uL 1.09-3.23 MONO x10^3 (test code = 742-7) 0.53 10*3/uL 0.36-1.02 EOS x10^3 (test code = 711-2) 0.21 10*3/uL 0.06-0.53 BASO x10^3 (test code = 704-7) 0.07 10*3/uL 0.01-0.09 Lab Interpretation (test code = 37424-2) [facility] 16:01:05* Test Item Value Reference Range Interpretation Comme [facility] POCT GLU (test code = 1986526314) 492 mg/dL 70-110 HH Lab Interpretation (test cod e = 80838-6) [facility]normal [facility]MO[facility] [id number] 00:00:00* Test Item Value Reference Range Interpretation Comme [facility] HEMOGLOBIN A1c (test code = 70537) 12.1 % HEMOGLOBIN [id number] 00:00:00* Test Item Value Reference Range Interpretation Comme nts HEMOGLOBIN A1c (test code = 85494) 12.1 % HEMOGLOBIN [id number] 00:00:00* Test Item Value Reference Range Interpretation Comme nts HEMOGLOBIN A1c (test code = 18339) 12.1 % COMPREHENSIVE METABOLIC [id number] 00:00:00* Test Item Value Reference Range Interpretation Comme nts GLUCOSE (test code = 2217) 499 MG/DL BUN (test code = 2208) 16 MG/DL CREATININE (test code = 2214) 1.11 MG/DL eGFR AMER. (test cod e = 44073) 86 ML/MIN/1.73 eGFR NON- AMER. (test code = 92092) 74 ML/MIN/1.73 CALC BUN/CREAT (test code = 2235) 14 RATIO SODIUM (test code = 2231) 134 MEQ/L POTASSIUM (test code = 2228) 4.9 MEQ/L CHLORIDE (test code = 2215) 96 MEQ/L CARBON DIOXIDE (test code = 2206) 25 MEQ/L CALCIUM (test code = 2209) 9.6 MG/DL PROTEIN, TOTAL (test code = 2229) 7.6 G/DL ALBUMIN (test code = 2201) 4.4 G/DL CALC GLOBULIN (test code = 2240) 3.2 G/DL CALC A/G RATIO (test code = 2234) 1.4 RATIO BILIRUBIN, TOTAL (test code = 2207) 0.8 MG/DL ALKALINE PHOSPHATASE (test code = 2204) 101 U/L AST (test code = 2218) 13 U/L ALT (test code = 2219) 12 U/L COMPREHENSIVE METABOLIC [id number] 00:00:00* Test Item Value Reference Range Interpretation Comme nts GLUCOSE (test code = 2217) 499 MG/DL BUN (test code = 2208) 16 MG/DL CREATININE (test code = 2214) 1.11 MG/DL eGFR AMER. (test cod e = 48046) 86 ML/MIN/1.73 eGFR NON- AMER. (test code = 41005) 74 ML/MIN/1.73 CALC BUN/CREAT (test code = 2235) 14 RATIO SODIUM (test code = 2231) 134 MEQ/L POTASSIUM (test code = 2228) 4.9 MEQ/L CHLORIDE (test code = 2215) 96 MEQ/L CARBON DIOXIDE (test code = 2206) 25 MEQ/L CALCIUM (test code = 2209) 9.6 MG/DL PROTEIN, TOTAL (test code = 2229) 7.6 G/DL ALBUMIN (test code = 2201) 4.4 G/DL CALC GLOBULIN (test code = 2240) 3.2 G/DL CALC A/G RATIO (test code = 2234) 1.4 RATIO BILIRUBIN, TOTAL (test code = 2207) 0.8 MG/DL ALKALINE PHOSPHATASE (test code = 2204) 101 U/L AST (test code = 2218) 13 U/L ALT (test code = 2219) 12 U/L HEMOGLOBIN [id number] 00:00:00* Test Item Value Reference Range Interpretation Comme nts HEMOGLOBIN A1c (test code = 56529) 12.1 % HEMOGLOBIN [id number] 00:00:00* Test Item Value Reference Range Interpretation Comme nts HEMOGLOBIN A1c (test code = 71234) 12.1 % HEMOGLOBIN [id number] 00:00:00* Test Item Value Reference Range Interpretation Comme nts HEMOGLOBIN A1c (test code = 52239) 12.1 % COMPREHENSIVE METABOLIC [id number] 00:00:00* Test Item Value Reference Range Interpretation Comme nts GLUCOSE (test code = 2217) 499 MG/DL BUN (test code = 2208) 16 MG/DL CREATININE (test code = 2214) 1.11 MG/DL eGFR AMER. (test cod e = 67882) 86 ML/MIN/1.73 eGFR NON- AMER. (test code = 86508) 74 ML/MIN/1.73 CALC BUN/CREAT (test code = 2235) 14 RATIO SODIUM (test code = 2231) 134 MEQ/L POTASSIUM (test code = 2228) 4.9 MEQ/L CHLORIDE (test code = 2215) 96 MEQ/L CARBON DIOXIDE (test code = 2206) 25 MEQ/L CALCIUM (test code = 2209) 9.6 MG/DL PROTEIN, TOTAL (test code = 2229) 7.6 G/DL ALBUMIN (test code = 2201) 4.4 G/DL CALC GLOBULIN (test code = 2240) 3.2 G/DL CALC A/G RATIO (test code = 2234) 1.4 RATIO BILIRUBIN, TOTAL (test code = 2207) 0.8 MG/DL ALKALINE PHOSPHATASE (test code = 2204) 101 U/L AST (test code = 2218) 13 U/L ALT (test code = 2219) 12 U/L COMPREHENSIVE METABOLIC [id number] 00:00:00* Test Item Value Reference Range Interpretation Comme nts GLUCOSE (test code = 2217) 499 MG/DL BUN (test code = 2208) 16 MG/DL CREATININE (test code = 2214) 1.11 MG/DL eGFR AMER. (test cod e = 62260) 86 ML/MIN/1.73 eGFR NON- AMER. (test code = 68367) 74 ML/MIN/1.73 CALC BUN/CREAT (test code = 2235) 14 RATIO SODIUM (test code = 2231) 134 MEQ/L POTASSIUM (test code = 2228) 4.9 MEQ/L CHLORIDE (test code = 2215) 96 MEQ/L CARBON DIOXIDE (test code = 2206) 25 MEQ/L CALCIUM (test code = 2209) 9.6 MG/DL PROTEIN, TOTAL (test code = 2229) 7.6 G/DL ALBUMIN (test code = 2201) 4.4 G/DL CALC GLOBULIN (test code = 2240) 3.2 G/DL CALC A/G RATIO (test code = 2234) 1.4 RATIO BILIRUBIN, TOTAL (test code = 2207) 0.8 MG/DL ALKALINE PHOSPHATASE (test code = 2204) 101 U/L AST (test code = 2218) 13 U/L ALT (test code = 2219) 12 U/L HEMOGLOBIN [id number] 00:00:00* Test Item Value Reference Range Interpretation Comme nts HEMOGLOBIN A1c (test code = 12029) 11.0 % HEMOGLOBIN [id number] 00:00:00* Test Item Value Reference Range Interpretation Comme nts HEMOGLOBIN A1c (test code = 36312) 11.0 % HEMOGLOBIN [id number] 00:00:00* Test Item Value Reference Range Interpretation Comme nts HEMOGLOBIN A1c (test code = 99157) 11.0 % COMPREHENSIVE METABOLIC [id number] 00:00:00* Test Item Value Reference Range Interpretation Comme nts GLUCOSE (test code = 2217) 214 MG/DL BUN (test code = 2208) 21 MG/DL CREATININE (test code = 2214) 0.90 MG/DL eGFR AMER. (test cod e = 30218) 110 ML/MIN/1.73 eGFR NON- AMER. (test code = 82741) 95 ML/MIN/1.73 CALC BUN/CREAT (test code = 2235) 23 RATIO SODIUM (test code = 2231) 139 MEQ/L POTASSIUM (test code = 2228) 4.9 MEQ/L CHLORIDE (test code = 2215) 103 MEQ/L CARBON DIOXIDE (test code = 2206) 27 MEQ/L CALCIUM (test code = 2209) 9.6 MG/DL PROTEIN, TOTAL (test code = 2229) 7.7 G/DL ALBUMIN (test code = 2201) 4.2 G/DL CALC GLOBULIN (test code = 2240) 3.5 G/DL CALC A/G RATIO (test code = 2234) 1.2 RATIO BILIRUBIN, TOTAL (test code = 2207) 0.8 MG/DL ALKALINE PHOSPHATASE (test code = 2204) 81 U/L AST (test code = 2218) 18 U/L ALT (test code = 2219) 20 U/L COMPREHENSIVE METABOLIC [id number] 00:00:00* Test Item Value Reference Range Interpretation Comme nts GLUCOSE (test code = 2217) 214 MG/DL BUN (test code = 2208) 21 MG/DL CREATININE (test code = 2214) 0.90 MG/DL eGFR AMER. (test cod e = 17161) 110 ML/MIN/1.73 eGFR NON- AMER. (test code = 65979) 95 ML/MIN/1.73 CALC BUN/CREAT (test code = 2235) 23 RATIO SODIUM (test code = 2231) 139 MEQ/L POTASSIUM (test code = 2228) 4.9 MEQ/L CHLORIDE (test code = 2215) 103 MEQ/L CARBON DIOXIDE (test code = 2206) 27 MEQ/L CALCIUM (test code = 2209) 9.6 MG/DL PROTEIN, TOTAL (test code = 2229) 7.7 G/DL ALBUMIN (test code = 2201) 4.2 G/DL CALC GLOBULIN (test code = 2240) 3.5 G/DL CALC A/G RATIO (test code = 2234) 1.2 RATIO BILIRUBIN, TOTAL (test code = 2207) 0.8 MG/DL ALKALINE PHOSPHATASE (test code = 2204) 81 U/L AST (test code = 2218) 18 U/L ALT (test code = 2219) 20 U/L LIPID [id number] 00:00:00* Test Item Value Reference Range Interpretation Comme nts CHOLESTEROL (test code = 2210) 173 MG/DL TRIGLYCERIDES (test code = 2232) 128 MG/DL HDL CHOLESTEROL (test code = 2220) 69 MG/DL CALC LDL CHOL (test code = 2237) 82 MG/DL RISK RATIO LDL/HDL (test cod e = 2238) 1.19 RATIO LIPID [id number] 00:00:00* Test Item Value Reference Range Interpretation Comme nts CHOLESTEROL (test code = 2210) 173 MG/DL TRIGLYCERIDES (test code = 2232) 128 MG/DL HDL CHOLESTEROL (test code = 2220) 69 MG/DL CALC LDL CHOL (test code = 2237) 82 MG/DL RISK RATIO LDL/HDL (test cod e = 2238) 1.19 RATIO HEMOGLOBIN [id number] 00:00:00* Test Item Value Reference Range Interpretation Comme nts HEMOGLOBIN A1c (test code = 29521) 11.0 % HEMOGLOBIN [id number] 00:00:00* Test Item Value Reference Range Interpretation Comme nts HEMOGLOBIN A1c (test code = 84545) 11.0 % HEMOGLOBIN [id number] 00:00:00* Test Item Value Reference Range Interpretation Comme nts HEMOGLOBIN A1c (test code = 43695) 11.0 % COMPREHENSIVE METABOLIC [id number] 00:00:00* Test Item Value Reference Range Interpretation Comme nts GLUCOSE (test code = 2217) 214 MG/DL BUN (test code = 2208) 21 MG/DL CREATININE (test code = 2214) 0.90 MG/DL eGFR AMER. (test cod e = 53691) 110 ML/MIN/1.73 eGFR NON- AMER. (test code = 53435) 95 ML/MIN/1.73 CALC BUN/CREAT (test code = 2235) 23 RATIO SODIUM (test code = 2231) 139 MEQ/L POTASSIUM (test code = 2228) 4.9 MEQ/L CHLORIDE (test code = 2215) 103 MEQ/L CARBON DIOXIDE (test code = 2206) 27 MEQ/L CALCIUM (test code = 2209) 9.6 MG/DL PROTEIN, TOTAL (test code = 2229) 7.7 G/DL ALBUMIN (test code = 2201) 4.2 G/DL CALC GLOBULIN (test code = 2240) 3.5 G/DL CALC A/G RATIO (test code = 2234) 1.2 RATIO BILIRUBIN, TOTAL (test code = 2207) 0.8 MG/DL ALKALINE PHOSPHATASE (test code = 2204) 81 U/L AST (test code = 2218) 18 U/L ALT (test code = 2219) 20 U/L COMPREHENSIVE METABOLIC [id number] 00:00:00* Test Item Value Reference Range Interpretation Comme nts GLUCOSE (test code = 2217) 214 MG/DL BUN (test code = 2208) 21 MG/DL CREATININE (test code = 2214) 0.90 MG/DL eGFR AMER. (test cod e = 36262) 110 ML/MIN/1.73 eGFR NON- AMER. (test code = 45050) 95 ML/MIN/1.73 CALC BUN/CREAT (test code = 2235) 23 RATIO SODIUM (test code = 2231) 139 MEQ/L POTASSIUM (test code = 2228) 4.9 MEQ/L CHLORIDE (test code = 2215) 103 MEQ/L CARBON DIOXIDE (test code = 2206) 27 MEQ/L CALCIUM (test code = 2209) 9.6 MG/DL PROTEIN, TOTAL (test code = 2229) 7.7 G/DL ALBUMIN (test code = 2201) 4.2 G/DL CALC GLOBULIN (test code = 2240) 3.5 G/DL CALC A/G RATIO (test code = 2234) 1.2 RATIO BILIRUBIN, TOTAL (test code = 2207) 0.8 MG/DL ALKALINE PHOSPHATASE (test code = 2204) 81 U/L AST (test code = 2218) 18 U/L ALT (test code = 2219) 20 U/L LIPID [id number] 00:00:00* Test Item Value Reference Range Interpretation Comme nts CHOLESTEROL (test code = 2210) 173 MG/DL TRIGLYCERIDES (test code = 2232) 128 MG/DL HDL CHOLESTEROL (test code = 2220) 69 MG/DL CALC LDL CHOL (test code = 2237) 82 MG/DL RISK RATIO LDL/HDL (test cod e = 2238) 1.19 RATIO LIPID [id number] 00:00:00* Test Item Value Reference Range Interpretation Comme nts CHOLESTEROL (test code = 2210) 173 MG/DL TRIGLYCERIDES (test code = 2232) 128 MG/DL HDL CHOLESTEROL (test code = 2220) 69 MG/DL CALC LDL CHOL (test code = 2237) 82 MG/DL RISK RATIO LDL/HDL (test cod e = 2238) 1.19 RATIO POCT GLUCOSE (AUTOMATED)2020-10-14 22:47:00* Test Item Value Reference Range Interpretation Comme nts POCT GLU (test code = 9968743415) 67 mg/dL 70-110 L Lab Interpretation (test cod e = 79982-1) [facility] - Draw no more than 60 minutes before the 1200 dose.2020-10-14 21:36:00* Test Item Value Reference Range Interpretation Comme nts VANCO TROUGH (test code = 2567926058) 13.4 ug/mL 10-20 SHIKHA (test code = SHIKHA) Toxic Range: ?>20 ug/mL 15-20 ug/mL is recommended for severe infection or when Vancomycin TERRANCE is greater than or equal to 2. Lab Interpretation (test code = 42552-5) Normal [facility] GLUCOSE (AUTOMATED)2020-10-14 17:59:00* Test Item Value Reference Range Interpretation Comme nts POCT GLU (test code = 7368571419) 97 mg/dL 70-110 Lab Interpretation (test cod e = 99146-0) Normal [facility] GLUCOSE (AUTOMATED)2020-10-14 14:14:00* Test Item Value Reference Range Interpretation Comme nts POCT GLU (test code = 3407020269) 160 mg/dL 70-110 H Lab Interpretation (test cod e = 35430-6) Abnormal [facility] [id number] 13:30:00* Test Item Value Reference Range Interpretation Comme nts NT-proBNP (test code = 0713484416) 147 pg/mL See_Comment H [Automated message] The system which generated this result transmitted reference range: <=125. The reference range was not used to interpret this result as normal/abnormal. SHIKHA (test code = SHIKHA) Biotin has been reported to cause a negative bias, interpret results relative to patient's use of biotin. Lab Interpretation (test code = 39271-0) Abnormal [facility]. METABOLIC PANEL (18228)2020-10-14 13:28:00* Test Item Value Reference Range Interpretation Comme nts NA (test code = 8553097113) 138 mmol/L 135-145 K (test code = 0863569520) 3.2 mmol/L 3.5-5 L CL (test code = 0611352995) 102 mmol/L 98-108 CO2 TOTAL (test code = 2199461154) 30 mmol/L 23-31 AGAP (test code = 6284265029) 2-16 BUN (test code = 6116490084) 17 mg/dL 7-23 GLUCOSE (test code = 2738197025) 171 mg/dL 70-110 H CREATININE (test code = 2674047708) 0.92 mg/dL 0.6-1.25 TOTAL BILI (test code = 0235487666) 0.7 mg/dL 0.1-1.1 CALCIUM (test code = 0777708508) 9.3 mg/dL 8.6-10.6 T PROTEIN (test code = 5132489342) 6.9 g/dL 6.3-8.2 ALBUMIN (test code = 6529732095) 3.3 g/dL 3.5-5 L ALK PHOS (test code = 7757441166) 78 U/L 34-122 ALTv (test code = 1742-6) 8 U/L 5-50 AST(SGOT) (test code = 9586357727) 21 U/L 13-40 eGFR Calculation (Non-) (test code = 4387359843) mL/min/1.73m2 eGFR Calculation () (test code = 0065399050) mL/min/1.73m2 SHIKHA (test code = SHIKHA) Association of Glomerular Filtration Rate (GFR) and Staging of Kidney Disease* + --+ --+ ------+| GFR (mL/min/1.73 m2) ?| With Kidney Damage ?| ?Without Kidney Damage+ --------+ --------+ +| ?>90 ?| ?Stage one ?| ? Normal ?+ ---+ ---+ -------+| ?60-89 ?| ?Stage two ?| ? Decreased GFR ? + --+ --+ ------+| ?30-59 ?| ?Stage three ?| ? Stage three ? + --+ --+ ------+| ?15-29 ?| ?Stage four ? | ? Stage four ?+ ---+ ---+ -------+| ?<15 (or dialysis) ? ?| ?Stage five ? | ? Stage five ?+ ---+ ---+ -------+ *Each stage assumes the associated GFR level has been in effect for at least three months. ?Stages 1 to 5, with or without kidney disease, indicate chronic kidney disease. Notes: Determination of stages one and two (with eGFR >59mL/min/1.73 m2) requires estimation of kidney damage for at least three months as defined by structural or functional abnormalities of the kidney, manifested by either:Pathological abnormalities or Markers of kidney damage (including abnormalities in the composition of the blood or urine or abnormalities in imaging tests). Lab Interpretation (test code = 32807-2) [facility]normal [facility] 13:28:00* Test Item Value Reference Range Interpretation Comme nts MAGNESIUM (test code = 7135127668) 2.0 mg/dL 1.7-2.4 Lab Interpretation (test cod e = 43994-4) Normal [facility] WITH [id number] 13:03:00* Test Item Value Reference Range Interpretation Comme nts WBC (test code = 6690-2) See_Comment [Automated [employer]] The system which generated this result transmitted reference range: 4.20 - 10.70 10*3/?L. The reference range was not used to interpret this result as normal/abnormal. RBC (test code = 789-8) See_Comment L [Automated [employer]] The system which generated this result transmitted reference range: 4.26 - 5.52 10*6/?L. The reference range was not used to interpret this result as normal/abnormal. HGB (test code = 718-7) 11.1 g/dL 12.2-16.4 L HCT (test code = 4544-3) 32.5 % 38.4-49.3 L MCV (test code = 787-2) 86.7 fL 81.7-95.6 MCH (test code = 785-6) 29.6 pg 26.1-32.7 MCHC (test code = 786-4) 34.2 g/dL 31.2-35 RDW-SD (test code = 14237-9) 38.8 fL 38.5-51.6 RDW-CV (test code = 788-0) 12.2 % 12.1-15.4 PLT (test code = 777-3) See_Comment [Automated [employer] ge] The system which generated this result transmitted reference range: 150 - 328 10*3/?L. The reference range was not used to interpret this result as normal/abnormal. MPV (test code = 87619-0) 11.2 fL 9.8-13 NRBC/100 WBC (test code = 9433627877) See_Comment [Automated Fronto ssage] The system which generated this result transmitted reference range: 0.0 - 10.0 /100 WBCs. The reference range was not used to interpret this result as normal/abnormal. NRBC x10^3 (test code = 4782068189) <0.01 See_Comment [Automated [employer] ge] The system which generated this result transmitted reference range: 10*3/?L. The reference range was not used to interpret this result as normal/abnormal. GRAN MAT (NEUT) % (test code = 770-8) 62.4 % IMM GRAN % (test code = 0570261499) 0.30 % LYMPH % (test code = 736-9) 22.6 % MONO % (test code = 5905-5) 9.5 % EOS % (test code = 713-8) 4.0 % BASO % (test code = 706-2) 1.2 % GRAN MAT x10^3(ANC) (test code = 6689665991) 5.62 10*3/uL 1.99-6.95 IMM GRAN x10^3 (test code = 9520759554) 0.03 10*3/uL 0-0.06 LYMPH x10^3 (test code = 731-0) 2.04 10*3/uL 1.09-3.23 MONO x10^3 (test code = 742-7) 0.86 10*3/uL 0.36-1.02 EOS x10^3 (test code = 711-2) 0.36 10*3/uL 0.06-0.53 BASO x10^3 (test code = 704-7) 0.11 10*3/uL 0.01-0.09 H Lab Interpretation (test code = 28784-2) Abnormal [facility] GLUCOSE (AUTOMATED)2020-10-14 05:05:00* Test Item Value Reference Range Interpretation Comme nts POCT GLU (test code = 8503220817) 161 mg/dL 70-110 H Lab Interpretation (test cod e = 94826-7) Abnormal [facility] GLUCOSE (AUTOMATED)2020-10-13 23:12:00* Test Item Value Reference Range Interpretation Comme nts POCT GLU (test code = 1770958219) 76 mg/dL 70-110 Lab Interpretation (test cod e = 93415-0) Normal [facility] GLUCOSE (AUTOMATED)2020-10-13 22:47:00* Test Item Value Reference Range Interpretation Comme nts POCT GLU (test code = 3775431835) 53 mg/dL 70-110 L Notified Provide r Lab Interpretation (test code = 12570-8) Abnormal [facility] GLUCOSE (AUTOMATED)2020-10-13 18:07:00* Test Item Value Reference Range Interpretation Comme nts POCT GLU (test code = 8207532420) 76 mg/dL 70-110 Notified Provide r Lab Interpretation (test code = 44404-9) Normal [facility] [id number] 17:44:00 * Test Item Value Reference Range Interpretation Comme nts TSH (test code = 4600042270) See_Comment [Automated messa ge] The system which generated this result transmitted reference range: 0.45 - 4.70 mIU/L. The reference range was not used to interpret this result as normal/abnormal. Lab Interpretation (test code = 35721-7) Normal [facility] West[facility]IT[facility]IN D, [id number] 17:24:00* Test Item Value Reference Range Interpretation Comme nts VIT D 25OH (test code = 38850-4) <13 25-80 L SHIKHA (test code = SHIKHA) Deficiency: <20 ng/mLInsufficiency: 20-24 ng/mLOptimal: 25-80 ng/mL Lab Interpretation (test code = 43894-8) Abnormal [facility]-TERMINAL [id number] 17:23:00* Test Item Value Reference Range Interpretation Comme nts NT-proBNP (test code = 8075882970) 172 pg/mL See_Comment H [Automated message] The system which generated this result transmitted reference range: <=125. The reference range was not used to interpret this result as normal/abnormal. SHIKHA (test code = SHIKHA) Biotin has been reported to cause a negative bias, interpret results relative to patient's use of biotin. Lab Interpretation (test code = 80889-1) Abnormal [facility] WestLIPID PANEL (90199)(TOTAL CHOLESTEROL, TRIGLYCERIDES, HDL)2020-10-13 17:13:00* Test Item Value Reference Range Interpretation Comme nts CHOL (test code = 5004117249) 187 mg/dL 120-200 HDL (test code = 7908085681) 36 mg/dL >40 L HDLC RATIO (test code = 5623772249) See_Comment H [Automated [employer]] The system which generated this result transmitted reference range: <=5.0. The reference range was not used to interpret this result as normal/abnormal. TRIG (test code = 4618598003) 127 mg/dL 30-170 LDL CHOL (test code = 59974-2) 126 mg/dL See_Comment [Automated [employer]] The system which generated this result transmitted reference range: <=160. The reference range was not used to interpret this result as normal/abnormal. VLDL (test code = 7565706782) 25 mg/dL 5-60 Lab Interpretation (test code = 62185-6) Abnormal [facility]2020-10-13 14:13:00* Test Item Value Reference Range Interpretation Comme nts POCT GLU (test code = 5203591146) 207 mg/dL 70-110 H Lab Interpretation (test cod e = 28171-8) Abnormal [facility] West[facility] Metabolic Panel (NA, K, CL, CO2, GLUCOSE, BUN, CREATININE, CA)2020-10-13 13:34:00* Test Item Value Reference Range Interpretation Comme nts NA (test code = 2786593597) 136 mmol/L 135-145 K (test code = 6687602966) 3.6 mmol/L 3.5-5 CL (test code = 3805274170) 99 mmol/L 98-108 CO2 TOTAL (test code = 3166394491) 26 mmol/L 23-31 AGAP (test code = 9466527471) 2-16 BUN (test code = 5730584736) 12 mg/dL 7-23 GLUCOSE (test code = 6986393913) 213 mg/dL 70-110 H CREATININE (test code = 2341867876) 0.86 mg/dL 0.6-1.25 CALCIUM (test code = 5194603475) 9.4 mg/dL 8.6-10.6 eGFR Calculation (Non-) (test code = 8214178020) mL/min/1.73m2 eGFR Calculation () (test code = 5505724237) mL/min/1.73m2 SHIKHA (test code = SHIKHA) Association of Glomerular Filtration Rate (GFR) and Staging of Kidney Disease* + --+ --+ ------+| GFR (mL/min/1.73 m2) ?| With Kidney Damage ?| ?Without Kidney Damage+ --------+ --------+ +| ?>90 ?| ?Stage one ?| ? Normal ?+ ---+ ---+ -------+| ?60-89 ?| ?Stage two ?| ? Decreased GFR ? + --+ --+ ------+| ?30-59 ?| ?Stage three ?| ? Stage three ? + --+ --+ ------+| ?15-29 ?| ?Stage four ? | ? Stage four ?+ ---+ ---+ -------+| ?<15 (or dialysis) ? ?| ?Stage five ? | ? Stage five ?+ ---+ ---+ -------+ *Each stage assumes the associated GFR level has been in effect for at least three months. ?Stages 1 to 5, with or without kidney disease, indicate chronic kidney disease. Notes: Determination of stages one and two (with eGFR >59mL/min/1.73 m2) requires estimation of kidney damage for at least three months as defined by structural or functional abnormalities of the kidney, manifested by either:Pathological abnormalities or Markers of kidney damage (including abnormalities in the composition of the blood or urine or abnormalities in imaging tests). Lab Interpretation (test code = 90221-5) Abnormal [facility] with [id number] 13:00:00* Test Item Value Reference Range Interpretation Comme nts WBC (test code = 6690-2) See_Comment [Automated messa ge] The system which generated this result transmitted reference range: 4.20 - 10.70 10*3/?L. The reference range was not used to interpret this result as normal/abnormal. RBC (test code = 789-8) See_Comment L [Automated messa ge] The system which generated this result transmitted reference range: 4.26 - 5.52 10*6/?L. The reference range was not used to interpret this result as normal/abnormal. HGB (test code = 718-7) 11.3 g/dL 12.2-16.4 L HCT (test code = 4544-3) 32.5 % 38.4-49.3 L MCV (test code = 787-2) 85.5 fL 81.7-95.6 MCH (test code = 785-6) 29.7 pg 26.1-32.7 MCHC (test code = 786-4) 34.8 g/dL 31.2-35 RDW-SD (test code = 37909-8) 37.1 fL 38.5-51.6 L RDW-CV (test code = 788-0) 12.0 % 12.1-15.4 L PLT (test code = 777-3) See_Comment [Automated messa ge] The system which generated this result transmitted reference range: 150 - 328 10*3/?L. The reference range was not used to interpret this result as normal/abnormal. MPV (test code = 08107-8) 11.1 fL 9.8-13 NRBC/100 WBC (test code = 9672863824) See_Comment [Automated Fronto ssage] The system which generated this result transmitted reference range: 0.0 - 10.0 /100 WBCs. The reference range was not used to interpret this result as normal/abnormal. NRBC x10^3 (test code = 6266674399) <0.01 See_Comment [Automated messa ge] The system which generated this result transmitted reference range: 10*3/?L. The reference range was not used to interpret this result as normal/abnormal. GRAN MAT (NEUT) % (test code = 770-8) 61.1 % IMM GRAN % (test code = 4154182892) 0.20 % LYMPH % (test code = 736-9) 24.6 % MONO % (test code = 5905-5) 9.5 % EOS % (test code = 713-8) 3.6 % BASO % (test code = 706-2) 1.0 % GRAN MAT x10^3(ANC) (test code = 6648298421) 5.27 10*3/uL 1.99-6.95 IMM GRAN x10^3 (test code = 9697048980) <0.03 0-0.06 LYMPH x10^3 (test code = 731-0) 2.12 10*3/uL 1.09-3.23 MONO x10^3 (test code = 742-7) 0.82 10*3/uL 0.36-1.02 EOS x10^3 (test code = 711-2) 0.31 10*3/uL 0.06-0.53 BASO x10^3 (test code = 704-7) 0.09 10*3/uL 0.01-0.09 Lab Interpretation (test code = 96286-7) Abnormal [facility] WestCT [facility] RIGHT W [id number] 10:58:29 Diffuse soft tissue swelling, most prominent about the third toe. No CT evidence of osteomyelitis. No abscess formation. Midfoot osteoarthrosis. Uncomplicated lateral and medial malleolar hardware fixation. Preliminary Report Dictated by Resident: Pretty Mckeon Comment: CT scan is not sensitive for the early detection of osteomyelitisand MRI is the recommended study of choice. 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 Sagittal and coronal reconstructions are generated andreviewed. BONE: Screw fixation of the medial malleolus is seen without hardware fracture orparalleling lucency. Plate and screw fixation of the distal fibula is notedwithout complication. Posttraumatic remodeling is noted in the distal tibiaand fourth through fifth metatarsal bases. Moderate joint space is notedacross the midfoot and forefoot articulations with marginal osteophytosis,subchondral sclerosis, and degenerative cyst formation. The alignment isanatomic. No aggressive osteolysis or periosteal reactions is identified.No acute fracture or dislocation is detected. Chronic bony remodelingextends through the proximal second through fourth metatarsals. Markedhypertrophy of the peroneal tubercle is present. Fragmented osteophyteswith subcortical cystic change and joint space loss are seen at the secondMTP joint. SOFT TISSUES: Diffuse subcutaneous soft tissue swelling of the foot is seen most notablyabout the third toe. No discrete abscess is identified. ?Diabetic typevascular calcifications are present. 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 [place] coronal reconstructions are generated andreviewed.BONE:Screw fixation of the medial malleolus is seen without hardware fracture orparalleling lucency. Plate and screw fixation of the distal fibula is notedwithout complication. Posttraumatic remodeling is noted in the distal tibiaand fourth through fifth metatarsal bases. Moderate joint space is notedacross the midfoot and forefoot articulation s with marginal osteophytosis,subchondral sclerosis, and degenerative cyst formation. The alignmentisanatomic. No aggressive osteolysis or periosteal reactions is identified.No acute fracture or dislocation is detected. Chronic bony remodelingextends through the proximal second through fourth metatarsals. Markedhypertrophy of the peroneal tubercle is present. Fragmented osteophyteswith subcortical cystic change and joint space loss are seen at the secondMTP joint.SOFT TISSUES:Diffuse subcutaneous soft tissue swelling of the foot is seen most notablyabout the third toe. No discrete abscess isidentified. Diabetic typevascular calcifications are present.IMPRESSIONDiffuse soft tissue swelling, most prominent about the third toe.No CT evidence of osteomyelitis.No abscess formation.Midfoot osteoarthrosis.Uncomplicated lateral and medial malleolar hardware fixation.Preliminary Report Dictated by Resident: Pretty MckeonComment: CT scan is not sensitive for the early detection of osteomyelit isand MRI is the recommended study of choice. I, Laureano Crump MD., have reviewed this study and agree with the abovereport.[facility] GLUCOSE (AUTOMATED)2020-10-13 02:35:00* Test Item Value Reference Range Interpretation Comme nts POCT GLU (test code = 7048783546) 341 mg/dL 70-110 H Lab Interpretation (test cod e = 08644-3) Abnormal [facility] West[facility]cosylated Hemoglobin (A1C)2020-10-13 01:00:00* Test Item Value Reference Range Interpretation Comme nts HGB A1C (test code = 4548-4) 13.0 % 4-6 H SHIKHA (test code = SHIKHA) %A1C (NGSP) Interpretation (ADA)4.8-5.6 ? ? Normal or (Non-Diabetic Range)5.7-6.4 ? ? Increased Risk (Pre-Diabetic)>6.5 ?Diabetes Indicated Lab Interpretation (test code = 74183-2) Abnormal [facility]INALYSIS2020-12-09 22:53:00* Test Item Value Reference Range Interpretation Comme nts APPEARANCE (test code = 3396819873) Clear Clear COLOR (test code = 8603245690) Yellow Yellow PH (test code = 5860573756) 4.8-8.0 SP GRAVITY (test code = 7673658916) 1.003-1.030 H GLU U QUAL (test code = 5322231790) 500 mg/dL Normal A BLOOD (test code = 5759465131) 1+ Negative A KETONES (test code = 9894290828) Negative Negative PROTEIN (test code = 2887-8) Negative Negative UROBILIN (test code = 2835127521) Normal Normal BILIRUBIN (test code = 9248900648) Negative Negative NITRITE (test code = 1438417540) Negative Negative LEUK KEEGAN (test code = 9124223880) Negative Negative RBC/HPF (test code = 1380376137) See_Comment [Automated [employer] ge] The system which generated this result transmitted reference range: 0 - 3 HPF. The reference range was not used to interpret this result as normal/abnormal. WBC/HPF (test code = 2421874168) See_Comment [Automated [employer] ge] The system which generated this result transmitted reference range: 0 - 5 HPF. The reference range was not used to interpret this result as normal/abnormal. BACTERIA (test code = 1982855076) Few Negative A MUCOUS (test code = 2340668007) Slight Negative LPF A SQ EPITH (test code = 5001968295) <1 HPF Lab Interpretation (test code = 84030-6) Abnormal [facility] WestCOVID-[facility] (ID NOW RAPID TESTING)2020-10-12 22:48:00* Test Item Value Reference Range Interpretation Comme nts SARS-CoV-2 Rapid ID NOW (test code = 21764-0) Not Detected Not Detected SHIKHA (test code = SHIKHA) ID NOW COVID-19 As say is an isothermal nucleic acid amplification test intended for the qualitative detection of nucleic acid from SARS-CoV-2 viral RNA in nasopharyngeal (PLASTIC CARD GRADER CARDROOM) specimens. It is used under Emergency Use Authorization (EUA) by FDA. The limit of detection (LOD) of the assay is 125 Genome Equivalents/mL. A positive result is indicative of the presence of SARS-CoV-2 RNA. ?Clinical correlation with patient history and other diagnostic information is necessary to determine patient infection status. A negative (Not Detected) result does not preclude SARS-CoV-2 infection. In patients with clinical symptoms and other tests that are consistent with SARS-CoV-2 infection, negative results should be treated as presumptive negative and a new specimen should be tested with alternative PCR molecular test. Invalid: Please collect a new specimen for repeat patient testing if clinically indicated. Lab Interpretation (test code = 05349-4) Normal [facility] WestCOM. METABOLIC PANEL (87884)2020-10-12 22:38:00* Test Item Value Reference Range Interpretation Comme nts NA (test code = 1985647287) 134 mmol/L 135-145 L K (test code = 6102294574) 4.1 mmol/L 3.5-5 CL (test code = 3951640676) 95 mmol/L 98-108 L CO2 TOTAL (test code = 8842623924) 28 mmol/L 23-31 AGAP (test code = 2220436752) 2-16 BUN (test code = 2443137287) 11 mg/dL 7-23 GLUCOSE (test code = 9519508012) 416 mg/dL 70-110 H CREATININE (test code = 0265131162) 0.85 mg/dL 0.6-1.25 TOTAL BILI (test code = 0751869820) 1.3 mg/dL 0.1-1.1 H CALCIUM (test code = 5774162828) 9.9 mg/dL 8.6-10.6 T PROTEIN (test code = 0473708076) 8.2 g/dL 6.3-8.2 ALBUMIN (test code = 6630113671) 4.2 g/dL 3.5-5 ALK PHOS (test code = 0026389938) 105 U/L 34-122 ALTv (test code = 1742-6) 12 U/L 5-50 AST(SGOT) (test code = 1473580632) 16 U/L 13-40 eGFR Calculation (Non-) (test code = 2789473850) mL/min/1.73m2 eGFR Calculation () (test code = 7034049134) mL/min/1.73m2 SHIKHA (test code = SHIKHA) Association of Glomerular Filtration Rate (GFR) and Staging of Kidney Disease* + --+ --+ ------+| GFR (mL/min/1.73 m2) ?| With Kidney Damage ?| ?Without Kidney Damage+ --------+ --------+ +| ?>90 ?| ?Stage one ?| ? Normal ?+ ---+ ---+ -------+| ?60-89 ?| ?Stage two ?| ? Decreased GFR ? + --+ --+ ------+| ?30-59 ?| ?Stage three ?| ? Stage three ? + --+ --+ ------+| ?15-29 ?| ?Stage four ? | ? Stage four ?+ ---+ ---+ -------+| ?<15 (or dialysis) ? ?| ?Stage five ? | ? Stage five ?+ ---+ ---+ -------+ *Each stage assumes the associated GFR level has been in effect for at least three months. ?Stages 1 to 5, with or without kidney disease, indicate chronic kidney disease. Notes: Determination of stages one and two (with eGFR >59mL/min/1.73 m2) requires estimation of kidney damage for at least three months as defined by structural or functional abnormalities of the kidney, manifested by either:Pathological abnormalities or Markers of kidney damage (including abnormalities in the composition of the blood or urine or abnormalities in imaging tests). Lab Interpretation (test code = 61595-7) Abnormal [facility] WITH [id number] 22:26:00* Test Item Value Reference Range Interpretation Comme nts WBC (test code = 6690-2) See_Comment [Automated messa ge] The system which generated this result transmitted reference range: 4.20 - 10.70 10*3/?L. The reference range was not used to interpret this result as normal/abnormal. RBC (test code = 789-8) See_Comment L [Automated messa ge] The system which generated this result transmitted reference range: 4.26 - 5.52 10*6/?L. The reference range was not used to interpret this result as normal/abnormal. HGB (test code = 718-7) 12.2 g/dL 12.2-16.4 HCT (test code = 4544-3) 35.6 % 38.4-49.3 L MCV (test code = 787-2) 85.2 fL 81.7-95.6 MCH (test code = 785-6) 29.2 pg 26.1-32.7 MCHC (test code = 786-4) 34.3 g/dL 31.2-35 RDW-SD (test code = 82024-5) 37.1 fL 38.5-51.6 L RDW-CV (test code = 788-0) 12.0 % 12.1-15.4 L PLT (test code = 777-3) See_Comment H [Automated messa ge] The system which generated this result transmitted reference range: 150 - 328 10*3/?L. The reference range was not used to interpret this result as normal/abnormal. MPV (test code = 23740-0) 11.4 fL 9.8-13 NRBC/100 WBC (test code = 1900330011) See_Comment [Automated Fronto ssage] The system which generated this result transmitted reference range: 0.0 - 10.0 /100 WBCs. The reference range was not used to interpret this result as normal/abnormal. NRBC x10^3 (test code = 0303884677) <0.01 See_Comment [Automated messa ge] The system which generated this result transmitted reference range: 10*3/?L. The reference range was not used to interpret this result as normal/abnormal. GRAN MAT (NEUT) % (test code = 770-8) 65.8 % IMM GRAN % (test code = 4469026402) 0.30 % LYMPH % (test code = 736-9) 23.2 % MONO % (test code = 5905-5) 8.1 % EOS % (test code = 713-8) 1.8 % BASO % (test code = 706-2) 0.8 % GRAN MAT x10^3(ANC) (test code = 5887833819) 5.98 10*3/uL 1.99-6.95 IMM GRAN x10^3 (test code = 8332556262) 0.03 10*3/uL 0-0.06 LYMPH x10^3 (test code = 731-0) 2.11 10*3/uL 1.09-3.23 MONO x10^3 (test code = 742-7) 0.74 10*3/uL 0.36-1.02 EOS x10^3 (test code = 711-2) 0.16 10*3/uL 0.06-0.53 BASO x10^3 (test code = 704-7) 0.07 10*3/uL 0.01-0.09 Lab Interpretation (test code = 66772-5) [facility] [id number] 22:09:30HISTORY: Cellulitis. FINDINGS: AP and lateral views of the right great toe showed no acutefracture or dislocation. Soft tissue swelling of the toes noted. See any definite sign of osteomyelitis in this study. Degenerative changesare seen in the second MTP joint. Diffuse sclerosis of proximal phalanx ofsecond toe could be secondary to remote trauma. CONCLUSIONS: No acute fracture or dislocation in right great toe. [facility], Radiant Results Inft User - 10/12/2020 4:10 PM CSTHISTORY: Cellulitis.FINDINGS: AP and lateral views of the right great toe showed no acutefracture or dislocation. Soft tissue swelling of the toes noted.See any definite sign of osteomyelitis in this study. Degenerative changes are seen in the second MTP joint. Diffuse sclerosis of proximal phalanx ofsecond toe could be secondary to remote trauma.CONCLUSIONS: No acute fracture or dislocation in right great toe[facility]W [id number] 22:08:12HISTORY: Cellulitis. FINDINGS: AP, lateral, oblique views of right ankle showed no acutefracture ordislocation. Metallic plate and screws fastened to the fibulaand 2 metallic lagging screws insertedinto the medial malleolus are ingood position with no hardware-related complications appreciated. Soft tissue swelling is seen predominantly along the lateral aspect of theankle. Posttraumatic degenerative osteoarthritis of ankle joint noted. Nosignificant ankle joint effusion. Incidental note madeof a prominent 9 mm heel spur and diabetic typevascular calcifications. CONCLUSIONS: No acute fracture or dislocation in right ankle. [facility], Radiant Results Inft User - 10/12/2020 4:09 PM CSTHISTORY: Cellulitis.FINDINGS: AP, lateral, oblique views of right ankle showed no acutefracture or dislocation. Metallic plate and screws fastened to the fibulaand 2 metallic lagging screws inserted into the medial malleolus are ingood position with no hardware-related complications appreciated. Soft tissue swelling is seen predominantly along the lateral aspect of theankle. Posttraumatic degenerative osteoarthritis of ankle joint noted. Nosignificant ankle joint effusion.Incidental note made of a prominent 9 mm heel spur and diabetic typevascular calcifications.CONCLUSIONS: No acute fracture or disloca tion in right ankle.[facility], [id number] 00:00:00* Test Item Value Reference Range Interpretation [facility] CULTURE, ROUTINE (test code = 01186) SPECIMEN NUMBER: [id number] COMPREHENSIVE METABOLIC [id number] 00:00:00* Test Item Value Reference Range Interpretation Comme [facility] GLUCOSE (test code = 2217) 316 MG/DL BUN (test code = 2208) 23 MG/DL CREATININE (test code = 2214) 1.06 MG/DL eGFR AMER. (test cod e = 70280) 92 ML/MIN/1.73 eGFR NON- AMER. (test code = 43423) 80 ML/MIN/1.73 CALC BUN/CREAT (test code = 2235) 22 RATIO SODIUM (test code = 2231) 136 MEQ/L POTASSIUM (test code = 2228) 4.7 MEQ/L CHLORIDE (test code = 2215) 95 MEQ/L CARBON DIOXIDE (test code = 2206) 29 MEQ/L CALCIUM (test code = 2209) 9.4 MG/DL PROTEIN, TOTAL (test code = 2229) 7.3 G/DL ALBUMIN (test code = 2201) 4.0 G/DL CALC GLOBULIN (test code = 2240) 3.3 G/DL CALC A/G RATIO (test code = 2234) 1.2 RATIO BILIRUBIN, TOTAL (test code = 2207) 0.7 MG/DL ALKALINE PHOSPHATASE (test code = 2204) 103 U/L AST (test code = 2218) 12 U/L ALT (test code = 2219) 8 U/L COMPREHENSIVE METABOLIC [id number] 00:00:00* Test Item Value Reference Range Interpretation Comme nts GLUCOSE (test code = 2217) 316 MG/DL BUN (test code = 2208) 23 MG/DL CREATININE (test code = 2214) 1.06 MG/DL eGFR AMER. (test cod e = 03691) 92 ML/MIN/1.73 eGFR NON- AMER. (test code = 34379) 80 ML/MIN/1.73 CALC BUN/CREAT (test code = 2235) 22 RATIO SODIUM (test code = 2231) 136 MEQ/L POTASSIUM (test code = 2228) 4.7 MEQ/L CHLORIDE (test code = 2215) 95 MEQ/L CARBON DIOXIDE (test code = 2206) 29 MEQ/L CALCIUM (test code = 2209) 9.4 MG/DL PROTEIN, TOTAL (test code = 2229) 7.3 G/DL ALBUMIN (test code = 2201) 4.0 G/DL CALC GLOBULIN (test code = 2240) 3.3 G/DL CALC A/G RATIO (test code = 2234) 1.2 RATIO BILIRUBIN, TOTAL (test code = 2207) 0.7 MG/DL ALKALINE PHOSPHATASE (test code = 2204) 103 U/L AST (test code = 2218) 12 U/L ALT (test code = 2219) 8 U/L CULTURE, [id number] 00:00:00* Test Item Value Reference Range Interpretation Comme nts CULTURE, ROUTINE (test code = 64352) SPECIMEN NUMBER: [id number] CULTURE, [id number] 00:00:00* Test Item Value Reference Range Interpretation Comme nts CULTURE, ROUTINE (test code = 51229) SPECIMEN NUMBER: [id number] CBC W/AUTO [id number] 00:00:00* Test Item Value Reference Range Interpretation Comme nts WBC (test code = 1001) 7.5 K/UL RBC (test code = 1002) 4.47 M/UL HEMOGLOBIN (test code = 1003) 13.2 G/DL HEMATOCRIT (test code = 1004) 37.5 % MCV (test code = 1005) 83.9 fL MCH (test code = 1006) 29.5 PG MCHC (test code = 1007) 35.2 G/DL RDW (test code = 1038) 12.4 % NEUTROPHILS (test code = 1008) 54.6 % LYMPHOCYTES (test code = 1010) 33.7 % MONOCYTES (test code = 1011) 7.2 % EOSINOPHILS (test code = 1012) 3.3 % BASOPHILS (test code = 1013) 1.2 % PLATELET COUNT (test code = 1015) 319 K/UL CBC W/AUTO [id number] 00:00:00* Test Item Value Reference Range Interpretation Comme nts WBC (test code = 1001) 7.5 K/UL RBC (test code = 1002) 4.47 M/UL HEMOGLOBIN (test code = 1003) 13.2 G/DL HEMATOCRIT (test code = 1004) 37.5 % MCV (test code = 1005) 83.9 fL MCH (test code = 1006) 29.5 PG MCHC (test code = 1007) 35.2 G/DL RDW (test code = 1038) 12.4 % NEUTROPHILS (test code = 1008) 54.6 % LYMPHOCYTES (test code = 1010) 33.7 % MONOCYTES (test code = 1011) 7.2 % EOSINOPHILS (test code = 1012) 3.3 % BASOPHILS (test code = 1013) 1.2 % PLATELET COUNT (test code = 1015) 319 K/UL CBC W/AUTO [id number] 00:00:00* Test Item Value Reference Range Interpretation Comme nts WBC (test code = 1001) 7.5 K/UL RBC (test code = 1002) 4.47 M/UL HEMOGLOBIN (test code = 1003) 13.2 G/DL HEMATOCRIT (test code = 1004) 37.5 % MCV (test code = 1005) 83.9 fL MCH (test code = 1006) 29.5 PG MCHC (test code = 1007) 35.2 G/DL RDW (test code = 1038) 12.4 % NEUTROPHILS (test code = 1008) 54.6 % LYMPHOCYTES (test code = 1010) 33.7 % MONOCYTES (test code = 1011) 7.2 % EOSINOPHILS (test code = 1012) 3.3 % BASOPHILS (test code = 1013) 1.2 % PLATELET COUNT (test code = 1015) 319 K/UL HEMOGLOBIN [id number] 00:00:00* Test Item Value Reference Range Interpretation Comme nts HEMOGLOBIN A1c (test code = 98916) 11.1 % HEMOGLOBIN [id number] 00:00:00* Test Item Value Reference Range Interpretation Comme nts HEMOGLOBIN A1c (test code = 84116) 11.1 % HEMOGLOBIN [id number] 00:00:00* Test Item Value Reference Range Interpretation Comme nts HEMOGLOBIN A1c (test code = 42913) 11.1 % COMPREHENSIVE METABOLIC [id number] 00:00:00* Test Item Value Reference Range Interpretation Comme nts GLUCOSE (test code = 2217) 316 MG/DL BUN (test code = 2208) 23 MG/DL CREATININE (test code = 2214) 1.06 MG/DL eGFR AMER. (test cod e = 44776) 92 ML/MIN/1.73 eGFR NON- AMER. (test code = 35860) 80 ML/MIN/1.73 CALC BUN/CREAT (test code = 2235) 22 RATIO SODIUM (test code = 2231) 136 MEQ/L POTASSIUM (test code = 2228) 4.7 MEQ/L CHLORIDE (test code = 2215) 95 MEQ/L CARBON DIOXIDE (test code = 2206) 29 MEQ/L CALCIUM (test code = 2209) 9.4 MG/DL PROTEIN, TOTAL (test code = 2229) 7.3 G/DL ALBUMIN (test code = 2201) 4.0 G/DL CALC GLOBULIN (test code = 2240) 3.3 G/DL CALC A/G RATIO (test code = 2234) 1.2 RATIO BILIRUBIN, TOTAL (test code = 2207) 0.7 MG/DL ALKALINE PHOSPHATASE (test code = 2204) 103 U/L AST (test code = 2218) 12 U/L ALT (test code = 2219) 8 U/L CULTURE, [id number] 00:00:00* Test Item Value Reference Range Interpretation Comme nts CULTURE, ROUTINE (test code = 47570) SPECIMEN NUMBER: [id number] CULTURE, [id number] 00:00:00* Test Item Value Reference Range Interpretation Comme nts CULTURE, ROUTINE (test code = 97947) SPECIMEN NUMBER: [id number] CULTURE, [id number] 00:00:00* Test Item Value Reference Range Interpretation Comme nts CULTURE, ROUTINE (test code = 08960) SPECIMEN NUMBER: [id number] COMPREHENSIVE METABOLIC [id number] 00:00:00* Test Item Value Reference Range Interpretation Comme nts GLUCOSE (test code = 2217) 316 MG/DL BUN (test code = 2208) 23 MG/DL CREATININE (test code = 2214) 1.06 MG/DL eGFR AMER. (test cod e = 38315) 92 ML/MIN/1.73 eGFR NON- AMER. (test code = 98202) 80 ML/MIN/1.73 CALC BUN/CREAT (test code = 2235) 22 RATIO SODIUM (test code = 2231) 136 MEQ/L POTASSIUM (test code = 2228) 4.7 MEQ/L CHLORIDE (test code = 2215) 95 MEQ/L CARBON DIOXIDE (test code = 2206) 29 MEQ/L CALCIUM (test code = 2209) 9.4 MG/DL PROTEIN, TOTAL (test code = 2229) 7.3 G/DL ALBUMIN (test code = 2201) 4.0 G/DL CALC GLOBULIN (test code = 2240) 3.3 G/DL CALC A/G RATIO (test code = 2234) 1.2 RATIO BILIRUBIN, TOTAL (test code = 2207) 0.7 MG/DL ALKALINE PHOSPHATASE (test code = 2204) 103 U/L AST (test code = 2218) 12 U/L ALT (test code = 2219) 8 U/L CBC W/AUTO [id number] 00:00:00* Test Item Value Reference Range Interpretation Comme nts WBC (test code = 1001) 7.5 K/UL RBC (test code = 1002) 4.47 M/UL HEMOGLOBIN (test code = 1003) 13.2 G/DL HEMATOCRIT (test code = 1004) 37.5 % MCV (test code = 1005) 83.9 fL MCH (test code = 1006) 29.5 PG MCHC (test code = 1007) 35.2 G/DL RDW (test code = 1038) 12.4 % NEUTROPHILS (test code = 1008) 54.6 % LYMPHOCYTES (test code = 1010) 33.7 % MONOCYTES (test code = 1011) 7.2 % EOSINOPHILS (test code = 1012) 3.3 % BASOPHILS (test code = 1013) 1.2 % PLATELET COUNT (test code = 1015) 319 K/UL CBC W/AUTO [id number] 00:00:00* Test Item Value Reference Range Interpretation Comme nts WBC (test code = 1001) 7.5 K/UL RBC (test code = 1002) 4.47 M/UL HEMOGLOBIN (test code = 1003) 13.2 G/DL HEMATOCRIT (test code = 1004) 37.5 % MCV (test code = 1005) 83.9 fL MCH (test code = 1006) 29.5 PG MCHC (test code = 1007) 35.2 G/DL RDW (test code = 1038) 12.4 % NEUTROPHILS (test code = 1008) 54.6 % LYMPHOCYTES (test code = 1010) 33.7 % MONOCYTES (test code = 1011) 7.2 % EOSINOPHILS (test code = 1012) 3.3 % BASOPHILS (test code = 1013) 1.2 % PLATELET COUNT (test code = 1015) 319 K/UL CBC W/AUTO [id number] 00:00:00* Test Item Value Reference Range Interpretation Comme nts WBC (test code = 1001) 7.5 K/UL RBC (test code = 1002) 4.47 M/UL HEMOGLOBIN (test code = 1003) 13.2 G/DL HEMATOCRIT (test code = 1004) 37.5 % MCV (test code = 1005) 83.9 fL MCH (test code = 1006) 29.5 PG MCHC (test code = 1007) 35.2 G/DL RDW (test code = 1038) 12.4 % NEUTROPHILS (test code = 1008) 54.6 % LYMPHOCYTES (test code = 1010) 33.7 % MONOCYTES (test code = 1011) 7.2 % EOSINOPHILS (test code = 1012) 3.3 % BASOPHILS (test code = 1013) 1.2 % PLATELET COUNT (test code = 1015) 319 K/UL HEMOGLOBIN [id number] 00:00:00* Test Item Value Reference Range Interpretation Comme nts HEMOGLOBIN A1c (test code = 71359) 11.1 % HEMOGLOBIN [id number] 00:00:00* Test Item Value Reference Range Interpretation Comme nts HEMOGLOBIN A1c (test code = 19393) 11.1 % HEMOGLOBIN [id number] 00:00:00* Test Item Value Reference Range Interpretation Comme nts HEMOGLOBIN A1c (test code = 81979) 11.1 % COMPREHENSIVE METABOLIC [id number] 00:00:00* Test Item Value Reference Range Interpretation Comme nts GLUCOSE (test code = 2217) 258 MG/DL BUN (test code = 2208) 24 MG/DL CREATININE (test code = 2214) 1.01 MG/DL eGFR AMER. (test cod e = 80567) 98 ML/MIN/1.73 eGFR NON- AMER. (test code = 17698) 85 ML/MIN/1.73 CALC BUN/CREAT (test code = 2235) 24 RATIO SODIUM (test code = 2231) 139 MEQ/L POTASSIUM (test code = 2228) 4.4 MEQ/L CHLORIDE (test code = 2215) 99 MEQ/L CARBON DIOXIDE (test code = 2206) 24 MEQ/L CALCIUM (test code = 2209) 10.5 MG/DL PROTEIN, TOTAL (test code = 2229) 8.1 G/DL ALBUMIN (test code = 2201) 4.4 G/DL CALC GLOBULIN (test code = 2240) 3.7 G/DL CALC A/G RATIO (test code = 2234) 1.2 RATIO BILIRUBIN, TOTAL (test code = 2207) 1.3 MG/DL ALKALINE PHOSPHATASE (test code = 2204) 105 U/L AST (test code = 2218) 13 U/L ALT (test code = 2219) 15 U/L COMPREHENSIVE METABOLIC [id number] 00:00:00* Test Item Value Reference Range Interpretation Comme nts GLUCOSE (test code = 2217) 258 MG/DL BUN (test code = 2208) 24 MG/DL CREATININE (test code = 2214) 1.01 MG/DL eGFR AMER. (test cod e = 96672) 98 ML/MIN/1.73 eGFR NON- AMER. (test code = 04957) 85 ML/MIN/1.73 CALC BUN/CREAT (test code = 2235) 24 RATIO SODIUM (test code = 2231) 139 MEQ/L POTASSIUM (test code = 2228) 4.4 MEQ/L CHLORIDE (test code = 2215) 99 MEQ/L CARBON DIOXIDE (test code = 2206) 24 MEQ/L CALCIUM (test code = 2209) 10.5 MG/DL PROTEIN, TOTAL (test code = 2229) 8.1 G/DL ALBUMIN (test code = 2201) 4.4 G/DL CALC GLOBULIN (test code = 2240) 3.7 G/DL CALC A/G RATIO (test code = 2234) 1.2 RATIO BILIRUBIN, TOTAL (test code = 2207) 1.3 MG/DL ALKALINE PHOSPHATASE (test code = 2204) 105 U/L AST (test code = 2218) 13 U/L ALT (test code = 2219) 15 U/L LIPID [id number] 00:00:00* Test Item Value Reference Range Interpretation Comme nts CHOLESTEROL (test code = 2210) 201 MG/DL TRIGLYCERIDES (test code = 2232) 103 MG/DL HDL CHOLESTEROL (test code = 2220) 58 MG/DL CALC LDL CHOL (test code = 2237) 122 MG/DL RISK RATIO LDL/HDL (test cod e = 2238) 2.11 RATIO LIPID [id number] 00:00:00* Test Item Value Reference Range Interpretation Comme nts CHOLESTEROL (test code = 2210) 201 MG/DL TRIGLYCERIDES (test code = 2232) 103 MG/DL HDL CHOLESTEROL (test code = 2220) 58 MG/DL CALC LDL CHOL (test code = 2237) 122 MG/DL RISK RATIO LDL/HDL (test cod e = 2238) 2.11 RATIO HEMOGLOBIN [id number] 00:00:00* Test Item Value Reference Range Interpretation Comme nts HEMOGLOBIN A1c (test code = 70706) 10.6 % HEMOGLOBIN [id number] 00:00:00* Test Item Value Reference Range Interpretation Comme nts HEMOGLOBIN A1c (test code = 18067) 10.6 % HEMOGLOBIN [id number] 00:00:00* Test Item Value Reference Range Interpretation Comme nts HEMOGLOBIN A1c (test code = 99638) 10.6 % MICROALBUMIN/CREATININE, RANDOM AND [id number] 00:00:00* Test Item Value Reference Range Interpretation Comme nts CREATININE, URINE, CONC. (te st code = 2071) 378.5 MG/DL MICROALBUMIN, RANDOM (test c ode = 61494) 6.8 MG/DL CALC MICROALB/CREAT RND (gifty t code = 63337) 18 MG/G MICROALBUMIN/CREATININE, RANDOM AND [id number] 00:00:00* Test Item Value Reference Range Interpretation Comme nts CREATININE, URINE, CONC. (te st code = 2071) 378.5 MG/DL MICROALBUMIN, RANDOM (test c ode = 42934) 6.8 MG/DL CALC MICROALB/CREAT RND (gifty t code = 56205) 18 MG/G COMPREHENSIVE METABOLIC [id number] 00:00:00* Test Item Value Reference Range Interpretation Comme nts GLUCOSE (test code = 2217) 258 MG/DL BUN (test code = 2208) 24 MG/DL CREATININE (test code = 2214) 1.01 MG/DL eGFR AMER. (test cod e = 35671) 98 ML/MIN/1.73 eGFR NON- AMER. (test code = 86468) 85 ML/MIN/1.73 CALC BUN/CREAT (test code = 2235) 24 RATIO SODIUM (test code = 2231) 139 MEQ/L POTASSIUM (test code = 2228) 4.4 MEQ/L CHLORIDE (test code = 2215) 99 MEQ/L CARBON DIOXIDE (test code = 2206) 24 MEQ/L CALCIUM (test code = 2209) 10.5 MG/DL PROTEIN, TOTAL (test code = 2229) 8.1 G/DL ALBUMIN (test code = 2201) 4.4 G/DL CALC GLOBULIN (test code = 2240) 3.7 G/DL CALC A/G RATIO (test code = 2234) 1.2 RATIO BILIRUBIN, TOTAL (test code = 2207) 1.3 MG/DL ALKALINE PHOSPHATASE (test code = 2204) 105 U/L AST (test code = 2218) 13 U/L ALT (test code = 2219) 15 U/L COMPREHENSIVE METABOLIC [id number] 00:00:00* Test Item Value Reference Range Interpretation Comme nts GLUCOSE (test code = 2217) 258 MG/DL BUN (test code = 2208) 24 MG/DL CREATININE (test code = 2214) 1.01 MG/DL eGFR AMER. (test cod e = 88970) 98 ML/MIN/1.73 eGFR NON- AMER. (test code = 89828) 85 ML/MIN/1.73 CALC BUN/CREAT (test code = 2235) 24 RATIO SODIUM (test code = 2231) 139 MEQ/L POTASSIUM (test code = 2228) 4.4 MEQ/L CHLORIDE (test code = 2215) 99 MEQ/L CARBON DIOXIDE (test code = 2206) 24 MEQ/L CALCIUM (test code = 2209) 10.5 MG/DL PROTEIN, TOTAL (test code = 2229) 8.1 G/DL ALBUMIN (test code = 2201) 4.4 G/DL CALC GLOBULIN (test code = 2240) 3.7 G/DL CALC A/G RATIO (test code = 2234) 1.2 RATIO BILIRUBIN, TOTAL (test code = 2207) 1.3 MG/DL ALKALINE PHOSPHATASE (test code = 2204) 105 U/L AST (test code = 2218) 13 U/L ALT (test code = 2219) 15 U/L LIPID [id number] 00:00:00* Test Item Value Reference Range Interpretation Comme nts CHOLESTEROL (test code = 2210) 201 MG/DL TRIGLYCERIDES (test code = 2232) 103 MG/DL HDL CHOLESTEROL (test code = 2220) 58 MG/DL CALC LDL CHOL (test code = 2237) 122 MG/DL RISK RATIO LDL/HDL (test cod e = 2238) 2.11 RATIO LIPID [id number] 00:00:00* Test Item Value Reference Range Interpretation Comme nts CHOLESTEROL (test code = 2210) 201 MG/DL TRIGLYCERIDES (test code = 2232) 103 MG/DL HDL CHOLESTEROL (test code = 2220) 58 MG/DL CALC LDL CHOL (test code = 2237) 122 MG/DL RISK RATIO LDL/HDL (test cod e = 2238) 2.11 RATIO HEMOGLOBIN [id number] 00:00:00* Test Item Value Reference Range Interpretation Comme nts HEMOGLOBIN A1c (test code = 79446) 10.6 % HEMOGLOBIN [id number] 00:00:00* Test Item Value Reference Range Interpretation Comme nts HEMOGLOBIN A1c (test code = 58523) 10.6 % HEMOGLOBIN [id number] 00:00:00* Test Item Value Reference Range Interpretation Comme nts HEMOGLOBIN A1c (test code = 97617) 10.6 % MICROALBUMIN/CREATININE, RANDOM AND [id number] 00:00:00* Test Item Value Reference Range Interpretation Comme nts CREATININE, URINE, CONC. (te st code = 207) 378.5 MG/DL MICROALBUMIN, RANDOM (test c ode = 53626) 6.8 MG/DL CALC MICROALB/CREAT RND (gifty t code = 75376) 18 MG/G MICROALBUMIN/CREATININE, RANDOM AND [id number] 00:00:00* Test Item Value Reference Range Interpretation Comme nts CREATININE, URINE, CONC. (te st code = 207) 378.5 MG/DL MICROALBUMIN, RANDOM (test c ode = 67914) 6.8 MG/DL CALC MICROALB/CREAT RND (gifty t code = 87185) 18 MG/G CULTURE, [id number] 00:00:00* Test Item Value Reference Range Interpretation Comme nts CULTURE, ROUTINE (test code = 63534) SPECIMEN NUMBER: [id number] CULTURE, [id number] 00:00:00* Test Item Value Reference Range Interpretation Comme nts CULTURE, ROUTINE (test code = 01938) SPECIMEN NUMBER: [id number] CULTURE, [id number] 00:00:00* Test Item Value Reference Range Interpretation Comme nts CULTURE, ROUTINE (test code = 43942) SPECIMEN NUMBER: [id number] CULTURE, [id number] 00:00:00* Test Item Value Reference Range Interpretation Comme nts CULTURE, ROUTINE (test code = 68846) SPECIMEN NUMBER: [id number] CULTURE, [id number] 00:00:00* Test Item Value Reference Range Interpretation Comme nts CULTURE, ROUTINE (test code = 73541) SPECIMEN NUMBER: [id number] CULTURE, [id number] 00:00:00* Test Item Value Reference Range Interpretation Comme nts CULTURE, ROUTINE (test code = 39411) SPECIMEN NUMBER: [id number] HEMOGLOBIN [id number] 00:00:00* Test Item Value Reference Range Interpretation Comme nts HEMOGLOBIN A1c (test code = 20041) 9.2 % HEMOGLOBIN [id number] 00:00:00* Test Item Value Reference Range Interpretation Comme nts HEMOGLOBIN A1c (test code = 94072) 9.2 % HEMOGLOBIN [id number] 00:00:00* Test Item Value Reference Range Interpretation Comme nts HEMOGLOBIN A1c (test code = 62708) 9.2 % COMPREHENSIVE METABOLIC [id number] 00:00:00* Test Item Value Reference Range Interpretation Comme nts GLUCOSE (test code = 2217) 299 MG/DL BUN (test code = 2208) 21 MG/DL CREATININE (test code = 2214) 1.21 MG/DL eGFR AMER. (test cod e = 48952) 79 ML/MIN/1.73 eGFR NON- AMER. (test code = 21792) 68 ML/MIN/1.73 CALC BUN/CREAT (test code = 2235) 17 RATIO SODIUM (test code = 2231) 135 MEQ/L POTASSIUM (test code = 2228) 5.1 MEQ/L CHLORIDE (test code = 2215) 93 MEQ/L CARBON DIOXIDE (test code = 2206) 25 MEQ/L CALCIUM (test code = 2209) 10.5 MG/DL PROTEIN, TOTAL (test code = 2229) 8.0 G/DL ALBUMIN (test code = 2201) 4.5 G/DL CALC GLOBULIN (test code = 2240) 3.5 G/DL CALC A/G RATIO (test code = 2234) 1.3 RATIO BILIRUBIN, TOTAL (test code = 2207) 0.9 MG/DL ALKALINE PHOSPHATASE (test code = 2204) 85 U/L AST (test code = 2218) 14 U/L ALT (test code = 2219) 21 U/L COMPREHENSIVE METABOLIC [id number] 00:00:00* Test Item Value Reference Range Interpretation Comme nts GLUCOSE (test code = 2217) 299 MG/DL BUN (test code = 2208) 21 MG/DL CREATININE (test code = 2214) 1.21 MG/DL eGFR AMER. (test cod e = 52711) 79 ML/MIN/1.73 eGFR NON- AMER. (test code = 90295) 68 ML/MIN/1.73 CALC BUN/CREAT (test code = 2235) 17 RATIO SODIUM (test code = 2231) 135 MEQ/L POTASSIUM (test code = 2228) 5.1 MEQ/L CHLORIDE (test code = 2215) 93 MEQ/L CARBON DIOXIDE (test code = 2206) 25 MEQ/L CALCIUM (test code = 2209) 10.5 MG/DL PROTEIN, TOTAL (test code = 2229) 8.0 G/DL ALBUMIN (test code = 2201) 4.5 G/DL CALC GLOBULIN (test code = 2240) 3.5 G/DL CALC A/G RATIO (test code = 2234) 1.3 RATIO BILIRUBIN, TOTAL (test code = 2207) 0.9 MG/DL ALKALINE PHOSPHATASE (test code = 2204) 85 U/L AST (test code = 2218) 14 U/L ALT (test code = 2219) 21 U/L LIPID [id number] 00:00:00* Test Item Value Reference Range Interpretation Comme nts CHOLESTEROL (test code = 2210) 227 MG/DL TRIGLYCERIDES (test code = 2232) 205 MG/DL HDL CHOLESTEROL (test code = 2220) 53 MG/DL CALC LDL CHOL (test code = 2237) 133 MG/DL RISK RATIO LDL/HDL (test cod e = 2238) 2.51 RATIO LIPID [id number] 00:00:00* Test Item Value Reference Range Interpretation Comme nts CHOLESTEROL (test code = 2210) 227 MG/DL TRIGLYCERIDES (test code = 2232) 205 MG/DL HDL CHOLESTEROL (test code = 2220) 53 MG/DL CALC LDL CHOL (test code = 2237) 133 MG/DL RISK RATIO LDL/HDL (test cod e = 2238) 2.51 RATIO MICROALBUMIN/CREATININE, RANDOM AND [id number] 00:00:00* Test Item Value Reference Range Interpretation Comme nts CREATININE, URINE, CONC. (te st code = 2072) 230.9 MG/DL MICROALBUMIN, RANDOM (test c ode = 78034) 10.2 MG/DL CALC MICROALB/CREAT RND (gifty t code = 07592) 44 MG/G MICROALBUMIN/CREATININE, RANDOM AND [id number] 00:00:00* Test Item Value Reference Range Interpretation Comme nts CREATININE, URINE, CONC. (te st code = 2072) 230.9 MG/DL MICROALBUMIN, RANDOM (test c ode = 75879) 10.2 MG/DL CALC MICROALB/CREAT RND (gifty t code = 53374) 44 MG/G HEMOGLOBIN [id number] 00:00:00* Test Item Value Reference Range Interpretation Comme nts HEMOGLOBIN A1c (test code = 17118) 9.2 % HEMOGLOBIN [id number] 00:00:00* Test Item Value Reference Range Interpretation Comme nts HEMOGLOBIN A1c (test code = 40336) 9.2 % HEMOGLOBIN [id number] 00:00:00* Test Item Value Reference Range Interpretation Comme nts HEMOGLOBIN A1c (test code = 62009) 9.2 % COMPREHENSIVE METABOLIC [id number] 00:00:00* Test Item Value Reference Range Interpretation Comme nts GLUCOSE (test code = 2217) 299 MG/DL BUN (test code = 2208) 21 MG/DL CREATININE (test code = 2214) 1.21 MG/DL eGFR AMER. (test cod e = 87547) 79 ML/MIN/1.73 eGFR NON- AMER. (test code = 52583) 68 ML/MIN/1.73 CALC BUN/CREAT (test code = 2235) 17 RATIO SODIUM (test code = 2231) 135 MEQ/L POTASSIUM (test code = 2228) 5.1 MEQ/L CHLORIDE (test code = 2215) 93 MEQ/L CARBON DIOXIDE (test code = 2206) 25 MEQ/L CALCIUM (test code = 2209) 10.5 MG/DL PROTEIN, TOTAL (test code = 2229) 8.0 G/DL ALBUMIN (test code = 2201) 4.5 G/DL CALC GLOBULIN (test code = 2240) 3.5 G/DL CALC A/G RATIO (test code = 2234) 1.3 RATIO BILIRUBIN, TOTAL (test code = 2207) 0.9 MG/DL ALKALINE PHOSPHATASE (test code = 2204) 85 U/L AST (test code = 2218) 14 U/L ALT (test code = 2219) 21 U/L COMPREHENSIVE METABOLIC [id number] 00:00:00* Test Item Value Reference Range Interpretation Comme nts GLUCOSE (test code = 2217) 299 MG/DL BUN (test code = 2208) 21 MG/DL CREATININE (test code = 2214) 1.21 MG/DL eGFR AMER. (test cod e = 15732) 79 ML/MIN/1.73 eGFR NON- AMER. (test code = 85581) 68 ML/MIN/1.73 CALC BUN/CREAT (test code = 2235) 17 RATIO SODIUM (test code = 2231) 135 MEQ/L POTASSIUM (test code = 2228) 5.1 MEQ/L CHLORIDE (test code = 2215) 93 MEQ/L CARBON DIOXIDE (test code = 2206) 25 MEQ/L CALCIUM (test code = 2209) 10.5 MG/DL PROTEIN, TOTAL (test code = 2229) 8.0 G/DL ALBUMIN (test code = 2201) 4.5 G/DL CALC GLOBULIN (test code = 2240) 3.5 G/DL CALC A/G RATIO (test code = 2234) 1.3 RATIO BILIRUBIN, TOTAL (test code = 2207) 0.9 MG/DL ALKALINE PHOSPHATASE (test code = 2204) 85 U/L AST (test code = 2218) 14 U/L ALT (test code = 2219) 21 U/L LIPID [id number] 00:00:00* Test Item Value Reference Range Interpretation Comme nts CHOLESTEROL (test code = 2210) 227 MG/DL TRIGLYCERIDES (test code = 2232) 205 MG/DL HDL CHOLESTEROL (test code = 2220) 53 MG/DL CALC LDL CHOL (test code = 2237) 133 MG/DL RISK RATIO LDL/HDL (test cod e = 2238) 2.51 RATIO LIPID [id number] 00:00:00* Test Item Value Reference Range Interpretation Comme nts CHOLESTEROL (test code = 2210) 227 MG/DL TRIGLYCERIDES (test code = 2232) 205 MG/DL HDL CHOLESTEROL (test code = 2220) 53 MG/DL CALC LDL CHOL (test code = 2237) 133 MG/DL RISK RATIO LDL/HDL (test cod e = 2238) 2.51 RATIO MICROALBUMIN/CREATININE, RANDOM AND [id number] 00:00:00* Test Item Value Reference Range Interpretation Comme nts CREATININE, URINE, CONC. (te st code = 2071) 230.9 MG/DL MICROALBUMIN, RANDOM (test c ode = 77294) 10.2 MG/DL CALC MICROALB/CREAT RND (gifty t code = 70772) 44 MG/G MICROALBUMIN/CREATININE, RANDOM AND [id number] 00:00:00* Test Item Value Reference Range Interpretation Comme nts CREATININE, URINE, CONC. (te st code = 2071) 230.9 MG/DL MICROALBUMIN, RANDOM (test c ode = 10951) 10.2 MG/DL CALC MICROALB/CREAT RND (gifty t code = 61778) 44 MG/G COMPREHENSIVE METABOLIC [id number] 00:00:00* Test Item Value Reference Range Interpretation Comme nts GLUCOSE (test code = 2217) 314 MG/DL BUN (test code = 2208) 14 MG/DL CREATININE (test code = 2214) 0.86 MG/DL eGFR AMER. (test cod e = 93840) 116 ML/MIN/1.73 eGFR NON- AMER. (test code = 42858) 100 ML/MIN/1.73 CALC BUN/CREAT (test code = 2235) 16 RATIO SODIUM (test code = 2231) 139 MEQ/L POTASSIUM (test code = 2228) 4.6 MEQ/L CHLORIDE (test code = 2215) 96 MEQ/L CARBON DIOXIDE (test code = 2206) 19 MEQ/L CALCIUM (test code = 2209) 10.2 MG/DL PROTEIN, TOTAL (test code = 2229) 7.8 G/DL ALBUMIN (test code = 2201) 4.7 G/DL CALC GLOBULIN (test code = 2240) 3.1 G/DL CALC A/G RATIO (test code = 2234) 1.5 RATIO BILIRUBIN, TOTAL (test code = 2207) 0.9 MG/DL ALKALINE PHOSPHATASE (test code = 2204) 87 U/L AST (test code = 2218) 16 U/L ALT (test code = 2219) 20 U/L COMPREHENSIVE METABOLIC [id number] 00:00:00* Test Item Value Reference Range Interpretation Comme nts GLUCOSE (test code = 2217) 314 MG/DL BUN (test code = 2208) 14 MG/DL CREATININE (test code = 2214) 0.86 MG/DL eGFR AMER. (test cod e = 15291) 116 ML/MIN/1.73 eGFR NON- AMER. (test code = 15880) 100 ML/MIN/1.73 CALC BUN/CREAT (test code = 2235) 16 RATIO SODIUM (test code = 2231) 139 MEQ/L POTASSIUM (test code = 2228) 4.6 MEQ/L CHLORIDE (test code = 2215) 96 MEQ/L CARBON DIOXIDE (test code = 2206) 19 MEQ/L CALCIUM (test code = 2209) 10.2 MG/DL PROTEIN, TOTAL (test code = 2229) 7.8 G/DL ALBUMIN (test code = 2201) 4.7 G/DL CALC GLOBULIN (test code = 2240) 3.1 G/DL CALC A/G RATIO (test code = 2234) 1.5 RATIO BILIRUBIN, TOTAL (test code = 2207) 0.9 MG/DL ALKALINE PHOSPHATASE (test code = 2204) 87 U/L AST (test code = 2218) 16 U/L ALT (test code = 2219) 20 U/L LIPID [id number] 00:00:00* Test Item Value Reference Range Interpretation Comme nts CHOLESTEROL (test code = 2210) 238 MG/DL TRIGLYCERIDES (test code = 2232) 141 MG/DL HDL CHOLESTEROL (test code = 2220) 55 MG/DL CALC LDL CHOL (test code = 2237) 155 MG/DL RISK RATIO LDL/HDL (test cod e = 2238) 2.81 RATIO LIPID [id number] 00:00:00* Test Item Value Reference Range Interpretation Comme nts CHOLESTEROL (test code = 2210) 238 MG/DL TRIGLYCERIDES (test code = 2232) 141 MG/DL HDL CHOLESTEROL (test code = 2220) 55 MG/DL CALC LDL CHOL (test code = 2237) 155 MG/DL RISK RATIO LDL/HDL (test cod e = 2238) 2.81 RATIO THYROID II PROFILE (T3U, T4, T7, TSH)[id number] 00:00:00* Test Item Value Reference Range Interpretation Comme nts T3 UPTAKE (test code = 2817) 30.0 % T4 (THYROXINE) (test code = 2819) 9.1 UG/DL CALCULATED T7 (FTI) (test co de = 2820) 2.73 TSH (test code = 2821) 1.1 UIU/ML THYROID II PROFILE (T3U, T4, T7, TSH)2016-04-19 00:00:00* Test Item Value Reference Range Interpretation Comme nts T3 UPTAKE (test code = 2817) 30.0 % T4 (THYROXINE) (test code = 2819) 9.1 UG/DL CALCULATED T7 (FTI) (test co de = 2820) 2.73 TSH (test code = 2821) 1.1 UIU/ML CBC W/AUTO [id number] 00:00:00* Test Item Value Reference Range Interpretation Comme nts WBC (test code = 1001) 7.5 K/UL RBC (test code = 1002) 4.96 M/UL HEMOGLOBIN (test code = 1003) 14.8 G/DL HEMATOCRIT (test code = 1004) 42.9 % MCV (test code = 1005) 86.5 fL MCH (test code = 1006) 29.8 PG MCHC (test code = 1007) 34.5 G/DL RDW (test code = 1038) 13.3 % NEUTROPHILS (test code = 1008) 57 % LYMPHOCYTES (test code = 1010) 32 % MONOCYTES (test code = 1011) 6 % EOSINOPHILS (test code = 1012) 4 % BASOPHILS (test code = 1013) 1 % PLATELET COUNT (test code = 1015) 288 K/UL CBC W/AUTO [id number] 00:00:00* Test Item Value Reference Range Interpretation Comme nts WBC (test code = 1001) 7.5 K/UL RBC (test code = 1002) 4.96 M/UL HEMOGLOBIN (test code = 1003) 14.8 G/DL HEMATOCRIT (test code = 1004) 42.9 % MCV (test code = 1005) 86.5 fL MCH (test code = 1006) 29.8 PG MCHC (test code = 1007) 34.5 G/DL RDW (test code = 1038) 13.3 % NEUTROPHILS (test code = 1008) 57 % LYMPHOCYTES (test code = 1010) 32 % MONOCYTES (test code = 1011) 6 % EOSINOPHILS (test code = 1012) 4 % BASOPHILS (test code = 1013) 1 % PLATELET COUNT (test code = 1015) 288 K/UL CBC W/AUTO [id number] 00:00:00* Test Item Value Reference Range Interpretation Comme nts WBC (test code = 1001) 7.5 K/UL RBC (test code = 1002) 4.96 M/UL HEMOGLOBIN (test code = 1003) 14.8 G/DL HEMATOCRIT (test code = 1004) 42.9 % MCV (test code = 1005) 86.5 fL MCH (test code = 1006) 29.8 PG MCHC (test code = 1007) 34.5 G/DL RDW (test code = 1038) 13.3 % NEUTROPHILS (test code = 1008) 57 % LYMPHOCYTES (test code = 1010) 32 % MONOCYTES (test code = 1011) 6 % EOSINOPHILS (test code = 1012) 4 % BASOPHILS (test code = 1013) 1 % PLATELET COUNT (test code = 1015) 288 K/UL HEMOGLOBIN [id number] 00:00:00* Test Item Value Reference Range Interpretation Comme nts HEMOGLOBIN A1c (test code = 82100) 12.1 % HEMOGLOBIN [id number] 00:00:00* Test Item Value Reference Range Interpretation Comme nts HEMOGLOBIN A1c (test code = 99387) 12.1 % HEMOGLOBIN [id number] 00:00:00* Test Item Value Reference Range Interpretation Comme nts HEMOGLOBIN A1c (test code = 61331) 12.1 % PSA, [id number] 00:00:00* Test Item Value Reference Range Interpretation Comme nts PSA, TOTAL (test code = 2606) 0.6 NG/ML PSA, [id number] 00:00:00* Test Item Value Reference Range Interpretation Comme nts PSA, TOTAL (test code = 2606) 0.6 NG/ML PSA, [id number] 00:00:00* Test Item Value Reference Range Interpretation Comme nts PSA, TOTAL (test code = 2606) 0.6 NG/ML COMPREHENSIVE METABOLIC [id number] 00:00:00* Test Item Value Reference Range Interpretation Comme nts GLUCOSE (test code = 2217) 314 MG/DL BUN (test code = 2208) 14 MG/DL CREATININE (test code = 2214) 0.86 MG/DL eGFR AMER. (test cod e = 30789) 116 ML/MIN/1.73 eGFR NON- AMER. (test code = 04964) 100 ML/MIN/1.73 CALC BUN/CREAT (test code = 2235) 16 RATIO SODIUM (test code = 2231) 139 MEQ/L POTASSIUM (test code = 2228) 4.6 MEQ/L CHLORIDE (test code = 2215) 96 MEQ/L CARBON DIOXIDE (test code = 2206) 19 MEQ/L CALCIUM (test code = 2209) 10.2 MG/DL PROTEIN, TOTAL (test code = 2229) 7.8 G/DL ALBUMIN (test code = 2201) 4.7 G/DL CALC GLOBULIN (test code = 2240) 3.1 G/DL CALC A/G RATIO (test code = 2234) 1.5 RATIO BILIRUBIN, TOTAL (test code = 2207) 0.9 MG/DL ALKALINE PHOSPHATASE (test code = 2204) 87 U/L AST (test code = 2218) 16 U/L ALT (test code = 2219) 20 U/L COMPREHENSIVE METABOLIC [id number] 00:00:00* Test Item Value Reference Range Interpretation Comme nts GLUCOSE (test code = 2217) 314 MG/DL BUN (test code = 2208) 14 MG/DL CREATININE (test code = 2214) 0.86 MG/DL eGFR AMER. (test cod e = 01219) 116 ML/MIN/1.73 eGFR NON- AMER. (test code = 55361) 100 ML/MIN/1.73 CALC BUN/CREAT (test code = 2235) 16 RATIO SODIUM (test code = 2231) 139 MEQ/L POTASSIUM (test code = 2228) 4.6 MEQ/L CHLORIDE (test code = 2215) 96 MEQ/L CARBON DIOXIDE (test code = 2206) 19 MEQ/L CALCIUM (test code = 2209) 10.2 MG/DL PROTEIN, TOTAL (test code = 2229) 7.8 G/DL ALBUMIN (test code = 2201) 4.7 G/DL CALC GLOBULIN (test code = 2240) 3.1 G/DL CALC A/G RATIO (test code = 2234) 1.5 RATIO BILIRUBIN, TOTAL (test code = 2207) 0.9 MG/DL ALKALINE PHOSPHATASE (test code = 2204) 87 U/L AST (test code = 2218) 16 U/L ALT (test code = 2219) 20 U/L LIPID [id number] 00:00:00* Test Item Value Reference Range Interpretation Comme nts CHOLESTEROL (test code = 2210) 238 MG/DL TRIGLYCERIDES (test code = 2232) 141 MG/DL HDL CHOLESTEROL (test code = 2220) 55 MG/DL CALC LDL CHOL (test code = 2237) 155 MG/DL RISK RATIO LDL/HDL (test cod e = 2238) 2.81 RATIO LIPID [id number] 00:00:00* Test Item Value Reference Range Interpretation Comme nts CHOLESTEROL (test code = 2210) 238 MG/DL TRIGLYCERIDES (test code = 2232) 141 MG/DL HDL CHOLESTEROL (test code = 2220) 55 MG/DL CALC LDL CHOL (test code = 2237) 155 MG/DL RISK RATIO LDL/HDL (test cod e = 2238) 2.81 RATIO THYROID II PROFILE (T3U, T4, T7, TSH)2016-04-19 00:00:00* Test Item Value Reference Range Interpretation Comme nts T3 UPTAKE (test code = 2817) 30.0 % T4 (THYROXINE) (test code = 2819) 9.1 UG/DL CALCULATED T7 (FTI) (test co de = 2820) 2.73 TSH (test code = 2821) 1.1 UIU/ML THYROID II PROFILE (T3U, T4, T7, TSH)2016-04-19 00:00:00* Test Item Value Reference Range Interpretation Comme nts T3 UPTAKE (test code = 2817) 30.0 % T4 (THYROXINE) (test code = 2819) 9.1 UG/DL CALCULATED T7 (FTI) (test co de = 2820) 2.73 TSH (test code = 2821) 1.1 UIU/ML CBC W/AUTO [id number] 00:00:00* Test Item Value Reference Range Interpretation Comme nts WBC (test code = 1001) 7.5 K/UL RBC (test code = 1002) 4.96 M/UL HEMOGLOBIN (test code = 1003) 14.8 G/DL HEMATOCRIT (test code = 1004) 42.9 % MCV (test code = 1005) 86.5 fL MCH (test code = 1006) 29.8 PG MCHC (test code = 1007) 34.5 G/DL RDW (test code = 1038) 13.3 % NEUTROPHILS (test code = 1008) 57 % LYMPHOCYTES (test code = 1010) 32 % MONOCYTES (test code = 1011) 6 % EOSINOPHILS (test code = 1012) 4 % BASOPHILS (test code = 1013) 1 % PLATELET COUNT (test code = 1015) 288 K/UL CBC W/AUTO [id number] 00:00:00* Test Item Value Reference Range Interpretation Comme nts WBC (test code = 1001) 7.5 K/UL RBC (test code = 1002) 4.96 M/UL HEMOGLOBIN (test code = 1003) 14.8 G/DL HEMATOCRIT (test code = 1004) 42.9 % MCV (test code = 1005) 86.5 fL MCH (test code = 1006) 29.8 PG MCHC (test code = 1007) 34.5 G/DL RDW (test code = 1038) 13.3 % NEUTROPHILS (test code = 1008) 57 % LYMPHOCYTES (test code = 1010) 32 % MONOCYTES (test code = 1011) 6 % EOSINOPHILS (test code = 1012) 4 % BASOPHILS (test code = 1013) 1 % PLATELET COUNT (test code = 1015) 288 K/UL CBC W/AUTO [id number] 00:00:00* Test Item Value Reference Range Interpretation Comme nts WBC (test code = 1001) 7.5 K/UL RBC (test code = 1002) 4.96 M/UL HEMOGLOBIN (test code = 1003) 14.8 G/DL HEMATOCRIT (test code = 1004) 42.9 % MCV (test code = 1005) 86.5 fL MCH (test code = 1006) 29.8 PG MCHC (test code = 1007) 34.5 G/DL RDW (test code = 1038) 13.3 % NEUTROPHILS (test code = 1008) 57 % LYMPHOCYTES (test code = 1010) 32 % MONOCYTES (test code = 1011) 6 % EOSINOPHILS (test code = 1012) 4 % BASOPHILS (test code = 1013) 1 % PLATELET COUNT (test code = 1015) 288 K/UL HEMOGLOBIN [id number] 00:00:00* Test Item Value Reference Range Interpretation Comme nts HEMOGLOBIN A1c (test code = 49450) 12.1 % HEMOGLOBIN [id number] 00:00:00* Test Item Value Reference Range Interpretation Comme nts HEMOGLOBIN A1c (test code = 99502) 12.1 % HEMOGLOBIN [id number] 00:00:00* Test Item Value Reference Range Interpretation Comme nts HEMOGLOBIN A1c (test code = 37042) 12.1 % PSA, [id number] 00:00:00* Test Item Value Reference Range Interpretation Comme nts PSA, TOTAL (test code = 2606) 0.6 NG/ML PSA, [id number] 00:00:00* Test Item Value Reference Range Interpretation Comme nts PSA, TOTAL (test code = 2606) 0.6 NG/ML PSA, [id number] 00:00:00* Test Item Value Reference Range Interpretation Comme nts PSA, TOTAL (test code = 2606) 0.6 NG/ML Notes Date/Time Note Provider Source 2024-03-12 09:27:17 I discussed the lab findings the patient. Advised that we need to continue to work on his DM. Notes he is unable to use the insulin because he is not able to see, but notes he was seen by ophthalmology and will have a surgery (per their last note possible PRP) . Pt continues to use metformin and glipizide. When asked if he has family or friends that can help he said no, then asked if he had any neighbors that can help him he said no and became a bit upset that I kept asking. Noted "Te dije que no" with a raised voice. I thanked the patient for his time and ended the call. -Troito Kirkland [facility] 2023-06-28 13:04:39 Formatting of this n ote might be different from the original. Pt given printed and verbal discharge instructions regarding staph, encouraged hydration, Prescriptions provided Discussed antibiotic therapy and to take until all completed unless adverse reaction occurs - if occurs, discontinue medication and follow up with pcp/seek medical attention Pt verbalized understanding of instructions, pt awake alert oriented, resp reg unlabored, skin w/d, color appropriate for race, moves all ext well,pt encouraged to follow up with pcp Advised to seek medical attention for new/prolonged/worsening of symptoms, Symptoms remains the same. Awake, alert oriented, resp reg unlabored, skin w/d, pt leaving amb with steady gait, in no apparent distress, [facility] 2023-06-28 10:46:05 Formatting of this n ote might be different from the original. Patient to ED for sores all over body for 1 month. He was seen here last month and didn't get a prescription per patient. Richie Link RN [facility]
--- NOTE | 2024-06-23 17:52 | EKG ---
Test Date: 2024-06-21 Test Time: 09:46:03 Student Life Advisor: CHIQUI MEASUREMENT RESULTS: Intervals: Rate: 83 DE: 192 QRSD: 84 QT: 360 QTc: 423 [place]: P: 48 DE: 192 QRS: 42 T: 76 INTERPRETIVE STATEMENTS: Normal sinus rhythm Normal ECG No previous ECG available for comparison Electronically Signed On 06-23-24 17:47:52 CDT by Misha Sims
== END 2024-06-21 11:16 | disposition home or self-care (01) ==
LOC: ER 09:12
DX: G56.02 Carpal tunnel syndrome, left upper limb (principal); E08.40 Diabetes mellitus due to underlying condition with diabetic neuropathy, unspecified; E08.6 Diabetes mellitus due to underlying condition with other specified complications; R07.9 Chest pain, unspecified; I12.9 Hypertensive chronic kidney disease with stage 1 through stage 4 chronic kidney disease, or unspecified chronic kidney disease; N18.9 Chronic kidney disease, unspecified; L08.9 Local infection of the skin and subcutaneous tissue, unspecified
CPT/HCPCS: 36415; 71045; 80048; 84484; 85025; 93005; 99284

== ENCOUNTER 2024-08-13 08:07 | Emergency (ER) | payer SELFPAY ==
--- OUTSIDE RECORDS SUMMARY | 2024-08-13 08:27 | XMS REPORT | Continuity of Care Document ---
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 daily. [facility] lisinopriL 10 mg tablet 01-09 00:00: 00 04-24 00:00 :00 No [id number] 10mg Take 1 tablet by mouth daily. [facility] linaGLIPtin (TRADJENTA) 5 mg tablet 01-09 00:00: 00 01-25 00:00 :00 No [id number] 5mg Take 1 tablet by mouth daily. [facility] povidone-io dine (BETADINE) 10 % solution 12-20 15:00: 00 Yes Topical, DAILY, First dose on [place] 12/20/22 at 0900, Until Discontinu ed, Routine [facility] lisinopriL 10 mg tablet 12-20 11:47: 48 Yes 10mg Take 10 mg by mouth daily. [facility] metFORMIN 1,000 mg tablet 12-20 11:47: 48 Yes 1000mg Take 1,000 mg by mouth 2 (two) times daily with meals. [facility] glipiZIDE 10 mg tablet 12-20 11:47: 48 Yes 10mg Take 10 mg by mouth daily. [facility] atorvastati n (LIPITOR) tablet 40 mg 12-20 03:00: 00 Yes 40mg 40 mg, Oral, QHS, First dose on Sat12/19/22 at 2100, Until Discontinu ed, Routine [facility] enoxaparin (LOVENOX) injection 30 mg 12-19 23:00: 00 Yes 30mg 30 mg, Subcutaneo us, DAILY, First dose on Sat12/19/22 at 1700, Until Discontinu ed, Routine [facility] glipiZIDE (GLUCOTROL) tablet 10 mg 12-19 15:00: 00 Yes 10mg 10 mg, Oral, DAILY, First dose on Sat12/19/22 at 0900, Until Discontinu ed, Routine [facility] sennosides- docusate sodium (SENOKOT-S) 8.6-50 mg per tablet 1 tablet 12-19 15:00: 00 Yes 1{tbl} 1 tablet, Oral, DAILY, First dose on Sat12/19/22 at 0900, Until Discontinu ed, Routine [facility] clindamycin (CLEOCIN HCL) capsule 300 mg 12-19 14:00: 00 Yes 300mg 300 mg, Oral, TID, First dose on Sat12/19/22 at 0800, Until Discontinu ed, JENNIFER
Re ason for Anti-Infec tive: Documented Infection< br>Documen vern Infection Site: Skin / Soft Tissue
Duration of Therapy: 7 days
Re stricted use approved by: ED PROVIDER [facility] gabapentin (NEURONTIN) capsule 300 mg 12-19 14:00: 00 Yes 300mg 300 mg, Oral, BID, First dose on Sat12/19/22 at 0800, Until Discontinu ed, Routine [facility] aspirin chewable tablet 81 mg 12-19 14:00: 00 Yes 81mg 81 mg, Oral, QAM WITH BREAKFAST, First dose on Sat12/19/22 at 0800, Until Discontinu ed, Routine [facility] insulin NPH and regular human 70-30 (70-30 U-100 INSULIN) 100 unit/mL (70-30) injection 10 Units 12-19 13:30: 00 Yes 10U 10 Units, Subcutaneo us, BIDAC, First dose on Sat12/19/22 at 0730, Until Discontinu ed, Routine [facility] ciprofloxac in HCl (CIPRO) tablet 500 mg 12-19 12:00: 00 Yes 500mg 500 mg, Oral, Q24H ABX, First dose on Sat12/19/22 at 0600, Until Discontinu ed, JENNIFER
Re ason for Anti-Infec tive: Documented Infection< br>Documen vern Infection Site: Skin / Soft Tissue
Duration of Therapy: 7 days [facility] NaCl 0.9% (NS) IV infusion 1,000 mL 12-19 08:30: 00 12-20 08:29 :00 No 1000mL at 100 mL/hr, IV Infusion, CONTINUOUS , Starting on Sat12/19/22 at 0230, Until Sat12/20/22 at 0229, Routine [facility] ondansetron (ZOFRAN (PF)) injection 4 mg 12-19 07:15: 38 Yes 4mg 4 mg, Slow IV Push, Q6HPRN, Starting on Sat12/19/22 at 0115, Until Discontinu ed, Routine, Nausea and Vomiting (N/V) [facility] HYDROcodone -acetaminop hen (NORCO 5) 5-325 mg tablet 1 tablet 12-19 07:15: 34 12-21 07:14 :34 No 1{tbl} 1 tablet, Oral, Q6HPRN, Starting on Sat12/19/22 at 0115, Until Sat12/21/22 at 0114, Routine, Pain (scale 4-6) [facility] acetaminoph en (TYLENOL) tablet 650 mg 12-19 07:15: 32 Yes 650mg 650 mg, Oral, Q6HPRN, Starting on Sat12/19/22 at 0115, Until Discontinu ed, Routine, Pain (scale 1-3) [facility] HYDROcodone -acetaminop hen (NORCO) 10-325 mg tablet 1 tablet 12-19 04:04: 53 12-19 07:16 :02 No 1{tbl} 1 tablet, Oral, Q6HPRN, Starting on Sat12/18/22 at 2204, Until Sat12/19/22 at 0116, Routine, Pain (scale 4-6) [facility] piperacilli n-tazobacta m (ZOSYN) 3.375 g in NaCl 0.9% (NS) 50 mL MINI-BAG 12-18 22:45: 00 12-19 01:34 :00 No 3.375g 3.375 g, IV Piggyback, ONCE, 1 dose, On Sat12/18/22 at 1645, Administer over 30 Minutes, 50 mL
Reas on for Anti-Infec tive: Empiric Therapy for Suspected Infection< br>Empiric Therapy Site: Skin / Soft tissue
Duration of therapy: 72 hours [facility] lisinopriL 10 mg tablet 12-13 17:53: 09 Yes 10mg Take 10 mg by mouth daily. [facility] metFORMIN 1,000 mg tablet 12-13 17:53: 09 Yes 1000mg Take 1,000 mg by mouth 2 (two) times daily with meals. [facility] glipiZIDE 10 mg tablet 12-13 17:53: 09 Yes 10mg Take 10 mg by mouth daily. [facility] lisinopriL 10 mg tablet 12-13 11:38: 47 Yes 10mg Take 10 mg by mouth daily. [facility] metFORMIN 1,000 mg tablet 12-13 11:38: 47 Yes 1000mg Take 1,000 mg by mouth 2 (two) times daily with meals. [facility] glipiZIDE 10 mg tablet 12-13 11:38: 47 Yes 10mg Take 10 mg by mouth daily. [facility] piperacilli n-tazobacta m (ZOSYN) 3.375 g in NaCl 0.9% (NS) 50 mL MINI-BAG 12-13 06:00: 00 01-21 04:59 :00 No 3.375g 3.375 g, IV Piggyback, Q8H ABX, 117 doses, First dose on [place] 12/13/22 at 0000, Last dose on 01/20/23 at 1600, Administer over 4 Hours, 50 mL
Reas on for Anti-Infec tive: Documented Infection& lt;br>Docu mented Infection Site: Bone
Du ration of Therapy: Other (see Comments) [facility] lactated ringers IV infusion 1,000 mL 12-13 00:45: 00 Yes 1000mL at 75 mL/hr, 1,000 mL, IV Infusion, CONTINUOUS , Starting on Sat12/12/22 at 1845, Until Discontinu ed, Routine, PACU [facility] HYDROcodone -acetaminop hen (NORCO 5) 5-325 mg tablet 1 tablet 12-13 00:45: 00 12-13 00:57 :00 No 1{tbl} 1 tablet, Oral, ONCE, 1 dose, On Sat12/12/22 at 1845, Routine, PACU [facility] bupivacaine (preserv free) (SENSORCAIN E MPF) 0.25 % (2.5 mg/mL) injection 12-13 00:39: 00 12-13 01:00 :26 No PRN, Starting on Sat12/12/22 at 1839, Until Sat12/12/22 at 1900, Routine, Intra-op [facility] ciprofloxac in HCl 500 mg tablet 12-13 00:00: 00 12-28 05:59 :00 No [id number] 500mg Take 1 tablet by mouth every 12 (twelve) hours for 14 days. [facility] clindamycin 300 mg capsule 12-13 00:00: 00 12-28 05:59 :00 No [id number] 300mg Take 1 capsule by mouth 3 (three) times daily for 14 days. [facility] piperacilli n-tazobacta m (ZOSYN) 3.375 g in NaCl 0.9% (NS) 50 mL MINI-BAG 12-12 23:00: 00 12-12 22:50 :00 No 3.375g 3.375 g, IV Piggyback, ONCE, 1 dose, On Sat12/12/22 at 1700, Administer over 30 Minutes, 50 mL
Reas on for Anti-Infec tive: Documented Infection< br>Documen vern Infection Site: Bone
Du ration of Therapy: 14 days [facility] ampicillin- sulbactam (UNASYN) 3 g in NaCl [...] Bone
Du ration of Therapy: 14 days [facility] enoxaparin 30 mg/0.3 mL injection 12-12 00:00: 00 01-10 05:59 :00 No [id number] 30mg inject 0.3 mL under the skin every 12 (twelve) hours for 28 days. [facility] KCL (KLOR-CON M20) tablet 40 mEq 12-11 21:45: 00 12-11 21:42 :00 No 40meq 40 mEq, Oral, ONCE, 1 dose, On Sat12/11/22 at 1545, Routine [facility] loperamide (IMODIUM A-D) capsule 2 mg 12-11 21:00: 13 Yes 2mg 2 mg, Oral, Q4HPRN, Starting on Sat12/11/22 at 1500, Until Discontinu ed, Routine, Diarrhea [facility] gadoteridol (PROHANCE-1 5 mL) injection 14.52 mL 12-11 03:00: 00 12-11 03:00 :00 No [id number] .2mL/kg 14.52 mL (0.2 mL/kg ?72.6 kg), Intravenou s, ONCE, 1 dose, On Sat12/10/22 at 2100, Routine [facility] piperacilli n-tazobacta m (ZOSYN) 3.375 g in [...]
Du ration of Therapy: Other (see Comments) [facility] doxycycline hyclate (Vibramycin ) capsule 100 mg 12-11 00:00: 00 12-12 15:44 :29 No 100mg 100 mg, Oral, Q12HA2, 56 doses, First dose on Sat12/10/22 at 1800, Last dose on Sat01/07/23 at 0600, JENNIFER
Re ason for Anti-Infec tive: Documented Infection< br>Documen vern Infection Site: Bone
Du ration of Therapy: Other (see Comments) [facility] piperacilli n-tazobacta m (ZOSYN) 3.375 g in NaCl 0.9% (NS) 50 mL MINI-BAG 12-10 16:15: 00 12-10 16:52 :00 No 3.375g 3.375 g, IV Piggyback, ONCE, 1 dose, On Sat12/10/22 at 1015, Administer over 30 Minutes, 50 mL
Reas on for Anti-Infec tive: Documented Infection< br>Documen vern Infection Site: Bone
Du ration of Therapy: Other (see Comments) [facility] atorvastati n (LIPITOR) tablet 40 mg 12-10 03:00: 00 Yes 40mg 40 mg, Oral, QHS, First dose on 12/09/22 at 2100, Until Discontinu ed, Routine [facility] ampicillin- sulbactam (UNASYN) 3 g in NaCl [...] Bone
Du ration of Therapy: 14 days [facility] enoxaparin (LOVENOX) injection 40 mg 12-09 15:00: 00 Yes 40mg 40 mg, Subcutaneo us, DAILY, First dose on 12/09/22 at 0900, Until Discontinu ed, [facility] (HumaLOG) + Fsbg Testing 12-09 14:00: 00 Yes Subcutaneo us, TID MEALS+HS, First dose on 12/09/22 at 0800, Until Discontinu ed, Routine [facility] gabapentin (NEURONTIN) capsule 300 mg 12-09 14:00: 00 Yes 300mg 300 mg, Oral, BID, First dose on 12/09/22 at 0800, Until Discontinu ed, [facility] and regular human 70-30 (70-30 U-100 INSULIN) 100 unit/mL (70-30) injection 10 Units 12-09 13:30: 00 Yes 10U 10 Units, Subcutaneo us, BIDAC, First dose on 12/09/22 at 0730, Until Discontinu ed, Routine [facility] hydrALAZINE (APRESOLINE ) tablet 10 mg 12-09 11:37: 48 Yes 10mg 10 mg, Oral, Q8HPRN, Starting on 12/09/22 at 0537, Until Discontinu ed, Routine, SBP >160 [facility] lactated ringers IV infusion 1,000 mL 12-09 03:15: 00 12-12 22:23 :08 No 1000mL at 125 mL/hr, 1,000 mL, IV Infusion, CONTINUOUS , Starting on 12/08/22 at 2115, Until 12/12/22 at 1623, Routine [facility] ondansetron (ZOFRAN (PF)) injection 4 mg 12-09 03:09: 47 Yes 4mg 4 mg, Slow IV Push, Q6HPRN, Starting on 12/08/22 at 210, Until Discontinu ed, Routine, Nausea and Vomiting (N/V) [facility] HYDROcodone -acetaminop hen (NORCO 5) 5-325 mg tablet 1 tablet 12-09 03:09: 41 12-11 03:08 :41 No 1{tbl} 1 tablet, Oral, Q6HPRN, Starting on 12/08/22 at 210, Until 12/10/22 at 210, Routine, Pain (scale 4-6) [facility] acetaminoph en (TYLENOL) tablet 650 mg 12-09 03:09: 37 Yes 650mg 650 mg, Oral, Q6HPRN, Starting on 12/08/22 at 2108, Until Discontinu ed, Routine, Pain (scale 1-3) [facility] dextrose 10% (D10W) bolus infusion 250 mL 12-09 03:08: 03 Yes 250mL 250 mL, IV Infusion, PRN - SEE INSTRUCTIO NS, Administer over 60 Minutes, Other, If blood glucose is < or = 70 mg/dL and patient is unable to swallow or has mental status changes, Starting on 12/08/22 at 2107
If blood glucose is < or = [...] blood glucose is < 80 mg/dL, repeat.
[facility] glucagon (GLUCAGEN DIAGNOSTIC KIT) injection 1 mg 12-09 03:07: 59 Yes 1mg 1 mg, Intramuscu lar, PRN, Starting on 12/08/22 at 2107, Until Discontinu ed, JENNIFER, Blood Glucose < or = 70 mg/dL and patient is NPO, unable to swallow or has mental changes. [facility] morpHINE (4 mg/mL) injection 4 mg 12-09 01:00: 00 12-09 00:25 :00 No 4mg 4 mg, Slow IV Push, ONCE, 1 dose, On 12/08/22 at 1900, [facility] ondansetron (ZOFRAN (PF)) injection 4 mg 12-09 00:15: 00 12-09 00:25 :00 No 4mg 4 mg, Slow IV Push, ONCE, 1 dose, On 12/08/22 at 1815, [facility] NaCl 0.9% (NS) bolus infusion 1,000 mL 12-08 23:30: 00 12-09 01:15 :00 No 1000mL at 999 mL/hr, 1,000 mL, IV Infusion, ONCE, 1 dose, On 12/08/22 at 1730, [facility] vancomycin (VANCOCIN) 1,000 mg in NaCl 0.9% (NS) 250 mL VIAL-MATE IV piggyback 12-08 23:30: 00 12-09 00:11 :00 No 1000mg 1,000 mg, IV Piggyback, ONCE, 1 dose, On 12/08/22 at 1730, Administer over 60 Minutes, 250 mL
Reas on for Anti-Infec tive: Documented Infection< br>Documen vern Infection Site: Skin / Soft Tissue
Duration of Therapy: 7 days [facility] ketorolac (TORADOL) injection 30 mg 12-08 23:30: 00 12-08 23:02 :00 No 30mg 30 mg, Slow IV Push, ONCE, 1 dose, On 12/08/22 at 1730, JENNIFER [facility] insulin regular human (HUMULIN R) injection 6 Units 12-08 23:30: 00 12-08 23:11 :00 No 6U 6 Units, Subcutaneo us, ONCE, 1 dose, On 12/08/22 at 1730, JENNIFER
In dication for insulin: Hyperglyce caroline [facility] lisinopriL 10 mg tablet 12-08 21:12: 01 Yes 10mg Take 10 mg by mouth daily. [facility] metFORMIN 1,000 mg tablet 12-08 21:12: 01 Yes 1000mg Take 1,000 mg by mouth 2 (two) times daily with meals. [facility] glipiZIDE 10 mg tablet 12-08 21:12: 01 Yes 10mg Take 10 mg by mouth daily. [facility] cefTRIAXone (ROCEPHIN) 1,000 mg in NaCl 0.9% (NS) 50 mL MINI-BAG 12-08 19:30: 00 12-08 20:57 :00 No 1000mg 1,000 mg, IV Piggyback, ONCE, 1 dose, On 12/08/22 at 1330, Administer over 30 Minutes, 50 mL
Reas on for Anti-Infec tive: Empiric Therapy for Suspected Infection< br>Empiric Therapy Site: Skin / Soft tissue
Duration of therapy: 72 hours [facility] iopamidol (ISOVUE 370-500 mL) injection 88 mL 12-01 23:45: 00 12-02 00:00 :00 No [id number] 88mL 88 mL, Intravenou s, ONCE, 1 dose, On 12/01/22 at 1800, Routine [facility] ondansetron (ZOFRAN (PF)) injection 4 mg 12-01 22:30: 00 12-01 21:46 :00 No 4mg 4 mg, Slow IV Push, ONCE, 1 dose, On 12/01/22 at 1630, [facility] acetaminoph en (TYLENOL) tablet 975 mg 12-01 22:30: 00 12-01 21:46 :00 No 975mg 975 mg, Oral, ONCE, 1 dose, On 12/01/22 at 1630, [facility] ketorolac (TORADOL) injection 15 mg 12-01 22:15: 00 12-01 21:45 :00 No 15mg 15 mg, Slow IV Push, ONCE, 1 dose, On 12/01/22 at 1615, [facility] naproxen 500 mg tablet 12-01 00:00: 00 12-08 00:00 :00 No [id number] 500mg Take 1 tablet by mouth 2 (two) times daily with meals for 10 days. [facility] ondansetron 4 mg disintegrat ing tablet 12-01 00:00: 00 12-08 00:00 :00 No [id number] 4mg Take 1 tablet by mouth every 4 (four) hours as needed for Nausea and Vomiting (N/V). [facility] aspirin 81 mg chewable tablet 2021-11 00:00: 00 Yes [id number] 81mg Take 1 tablet by mouth daily with breakfast. [facility] gabapentin 300 mg capsule 2021-11 00:00: 00 Yes [id number] 300mg Take 1 capsule by mouth 2 (two) times daily. [facility] atorvastati n 40 mg tablet 2021-11 00:00: 00 Yes [id number] 40mg Take 1 tablet by mouth at bedtime. [facility] collagenase 250 unit/gram ointment 2021-11 00:00: 00 12-08 00:00 :00 No [id number] Apply to affected area(s) daily. [facility] acetaminoph en-codeine 300-30 mg tablet 2021-11 00:00: 00 12-08 00:00 :00 No [id number] 1{tbl} Take 1 tablet by mouth every 4 (four) hours as needed for Pain (scale 7-10). Indication s: acute pain [facility] collagenase 250 unit/gram ointment 2021-11 00:00: 00 Yes [id number] Apply to affected area(s) daily. [facility] atorvastati n 40 mg tablet 2021-11 00:00: 00 Yes [id number] 40mg Take 1 tablet by mouth at bedtime. [facility] gabapentin 300 mg capsule 2021-11 00:00: 00 Yes [id number] 300mg Take 1 capsule by mouth 2 (two) times daily. [facility] insulin NPH and regular human 70-30 100 unit/mL (70-30) injection 2021-11 00:00: 00 01-25 00:00 :00 No [id number] 10U inject 10 Units under the skin 2 (two) times daily before breakfast and dinner. [facility] acetaminoph en-codeine 300-30 mg tablet 2021-11 00:00: 00 10-25 05:59 :00 No [id number] 1{tbl} Take 1 tablet by mouth every 4 (four) hours as needed for Pain (scale 7-10) for up to 7 days. Indication s: acute pain [facility] collagenase 250 unit/gram ointment 2021-11 00:00: 00 Yes [id number] Apply to affected area(s) daily. [facility] acetaminoph en (TYLENOL) tablet 650 mg 2021-11 02:29: 25 Yes 650mg 650 mg, Oral, Q4HPRN, Starting on Sat09/05/22 at 2129, Until Discontinu ed, Routine, Pain (scale 1-3) [facility] amoxicillin -clavulanat e (AUGMENTIN) 875-125 mg per tablet 1 tablet 2021-11 01:00: 00 10-18 01:59 :00 No 1{tbl} 1 tablet, Oral, Q12H, 84 doses, First dose on Sat09/05/22 at 2000, Last dose on Sat10/17/22 at 0800, Routine
Reason for Anti-Infec tive: Documented Infection< br>Documen vern Infection Site: Skin / Soft Tissue
Duration of Therapy: Other (see Comments) [facility] aspirin 81 mg chewable tablet 2021-11 00:00: 00 Yes [id number] 81mg Take 1 tablet by mouth daily with breakfast. [facility] amoxicillin -clavulanat e 875-125 mg per tablet 2021-11 00:00: 00 10-22 05:59 :00 No [id number] 1{tbl} Take 1 tablet by mouth every 12 (twelve) hours for 45 days. [facility] metoclopram victorino HCl (REGLAN) injection 10 mg 2021-11 23:00: 00 Yes 10mg 10 mg, Slow IV Push, Q6H, First dose on Sat09/05/22 at 1800, Until Discontinu ed, Routine [facility] collagenase (SANTYL) ointment 2021-11 14:00: 00 Yes Topical (Apply To Affected Areas), DAILY, First dose on Sat09/05/22 at 0900, Until Discontinu ed, Routine [facility] metoclopram victorino HCl 10 mg tablet 2021-11 00:00: 00 12-08 00:00 :00 No [id number] 10mg Take 1 tablet by mouth every 6 (six) hours as needed for Nausea and Vomiting (N/V). [facility] atorvastati n 20 mg tablet 2021-11 00:00: 00 10-06 05:59 :00 No [id number] 20mg Take 1 tablet by mouth at bedtime for 30 days. [facility] lisinopriL 10 mg tablet 2021-11 00:00: 00 10-06 05:59 :00 No [id number] 10mg Take 1 tablet by mouth daily for 30 days. [facility] traMADoL 50 mg tablet 2021-11 00:00: 00 09-11 05:59 :00 No [id number] 50mg Take 1 tablet by mouth every 8 (eight) hours as needed for Pain (scale 7-10) for up to 5 days. Indication s: acute pain [facility] amoxicillin -clavulanat e 875-125 mg per tablet 2021-11 00:00: 00 09-06 00:00 :00 No [id number] 1{tbl} Take 1 tablet by mouth every 12 (twelve) hours for 30 days. [facility] gadobenate dimeglumine (MULTIHANCE -15 mL) injection 15.1 mL 2021-11 16:45: 00 09-04 16:45 :00 No [id number] .2mL/kg 15.1 mL (0.2 mL/kg ?75.5 kg), Intravenou s, ONCE, 1 dose, On Sat09/04/22 at 1145, Routine [facility] insulin NPH and regular human 70-30 (70-30 U-100 INSULIN) 100 unit/mL (70-30) injection 10 Units 2021-11 12:30: 00 Yes 10U 10 Units, Subcutaneo us, BIDAC, First dose (after last modificati on) on Sat09/04/22 at 0730, Until Discontinu ed, Routine [facility] pantoprazol e (PROTONIX) injection 40 mg 2021-11 22:30: 00 Yes 40mg 40 mg, Slow IV Push, DAILY, First dose on Sat09/03/22 at 1730, Until Discontinu ed [facility] proMETHazin e (PHENERGAN) 25 mg in NaCl 0.9% (NS) 50 mL IV piggyback 2021-11 22:29: 09 09-05 22:46 :45 No 25mg 25 mg, IV Piggyback, Q6HPRN, Starting on Sat09/03/22 at 1729, Until Sat09/05/22 at 1746, Routine, N/V unresponsi ve to Ondansetro n [facility] atorvastati n (LIPITOR) tablet 20 mg 2021-11 02:00: 00 Yes 20mg 20 mg, Oral, QHS, First dose on 09/02/22 at 2100, Until Discontinu ed, Routine [facility] Vancomycin 750 mg in NaCl 0.9% (NS) 250 mL VIAL-MATE 2021-11 23:00: 00 09-05 19:37 :41 No 750mg 750 mg, IV Piggyback, Q12H ABX, First dose (after last reorder) on 09/02/22 at 1800, Until Discontinu ed, Administer over 60 Minutes, 250 mL
Reas on for Anti-Infec tive: Documented Infection< br>Documen vern Infection Site: Skin / Soft Tissue
Duration of Therapy: Other (see Comments) [facility] enoxaparin (LOVENOX) injection 40 mg 2021-11 22:00: 00 Yes 40mg 40 mg, Subcutaneo us, DAILY, First dose on 09/02/22 at 1700, Until Discontinu ed, Routine [facility] piperacilli n-tazobacta m (ZOSYN) 3.375 g in NaCl 0.9% (NS) 50 mL MINI-BAG 2021-11 17:30: 00 09-05 19:37 :41 No 3.375g 3.375 g, IV Piggyback, Q8H ABX, 42 doses, First dose (after last reorder) on 09/02/22 at 1230, Last dose on 09/16/22 at 0430, Administer over 4 Hours, 50 mL
Reas on for Anti-Infec tive: Documented Infection< br>Documen vern Infection Site: Skin / Soft Tissue
Duration of Therapy: Other (see Comments) [facility] lactobacill us acidophilus tablet 0.5 mg 2021-11 14:00: 00 Yes .5mg 0.5 mg, Oral, DAILY, First dose on 09/02/22 at 0900, Until Discontinu ed, Routine [facility] [facility] magnesium sulfate in water 2 gram/50 mL (4 %) infusion 2 g 2021-11 13:45: 00 09-02 14:32 :00 No 2g 2 g, IV Piggyback, Administer over 60 Minutes, ONCE, 1 dose, On Sat09/02/22 at 0845, Routine [facility] NaCl 0.9% (NS) IV infusion 1,000 mL 2021-11 13:15: 00 09-04 15:54 :01 No 1000mL at 50 mL/hr, IV Infusion, CONTINUOUS , Starting on Sat09/02/22 at 0815, Until Sat09/04/22 at 1054, Routine [facility] iopamidol (ISOVUE 370-500 mL) injection 64 mL 2021-11 13:15: 00 09-02 12:10 :00 No [id number] 64mL 64 mL, Intravenou s, ONCE, 1 dose, On Sat09/02/22 at 0815, Routine [facility] magnesium oxide (MAG-OX 400) tablet 400 mg 2021-11 13:00: 00 Yes 400mg 400 mg, Oral, BID, First dose on Sat09/02/22 at 0800, Until Discontinu ed, Routine [facility] docusate (COLACE) capsule 100 mg 2021-11 13:00: 00 Yes 100mg 100 mg, Oral, BID, First dose on Sat09/02/22 at 0800, Until Discontinu ed, Routine [facility] Sliding Scale Insulin - Lispro (HumaLOG) + Fsbg Testing 2021-11 13:00: 00 Yes Subcutaneo us, TID MEALS+HS, First dose on Sat09/02/22 at 0800, Until Discontinu ed, Routine [facility] insulin NPH and regular human 70-30 (70-30 U-100 INSULIN) 100 unit/mL (70-30) injection 15 Units 2021-11 12:30: 00 09-03 22:29 :21 No 15U 15 Units, Subcutaneo us, BIDAC, First dose on Sat09/02/22 at 0730, Until Discontinu ed, Routine [facility] aspirin chewable tablet 81 mg 2021-11 12:00: 00 Yes 81mg 81 mg, Oral, QAM WITH BREAKFAST, First dose on Sat09/02/22 at 0700, Until Discontinu ed, Routine [facility] morpHINE (2 mg/mL) injection 2 mg 2021-11 11:16: 28 Yes 2mg 2 mg, Slow IV Push, Q4HPRN, Starting on 09/02/22 at 0616, Until Discontinu ed, Routine, Pain (scale 7-10) [facility] traMADoL (ULTRAM) tablet 50 mg 2021-11 11:16: 20 Yes 50mg 50 mg, Oral, Q8HPRN, Starting on 09/02/22 at 0616, Until Discontinu ed, Routine, Pain (scale 4-6) [facility] ondansetron (ZOFRAN (PF)) injection 4 mg 2021-11 11:16: 14 Yes 4mg 4 mg, Slow IV Push, Q6HPRN, Starting on Sat09/02/22 at 0616, Until Discontinu ed, Routine, Nausea and Vomiting (N/V) [facility] glucagon (GLUCAGEN DIAGNOSTIC KIT) injection 1 mg 2021-11 11:13: 29 Yes 1mg 1 mg, Intramuscu lar, PRN, Starting on Sat09/02/22 at 0613, Until Discontinu ed, JENNIFER, Blood Glucose < or = 70 mg/dL and patient is unable to swallow or has mental changes. [facility] dextrose 50 % in water (D50W) injection 25 mL 2021-11 11:13: 29 Yes 25mL 25 mL, Slow IV Push, PRN, Starting on Sat09/02/22 at 0613, Until Discontinu ed, JENNIFER, Blood Glucose < or = 70 mg/dL and patient is unable to swallow or has mental status changes. [facility] morpHINE (2 mg/mL) injection 2 mg 2021-11 10:46: 00 09-02 10:54 :00 No 2mg 2 mg, Slow IV Push, ONCE, 1 dose, On [place] 09/02/22 at 0600, Routine [facility] vancomycin (VANCOCIN) 1,000 mg in NaCl 0.9% (NS) 250 mL VIAL-MATE IV piggyback 2021-11 10:30: 00 09-02 10:52 :00 No 1000mg 1,000 mg, IV Piggyback, ONCE, 1 dose, On [place] 09/02/22 at 0530, Administer over 60 Minutes, 250 mL
Reas on for Anti-Infec tive: Documented Infection< br>Documen vern Infection Site: Skin / Soft Tissue
Duration of Therapy: Other (see Comments) [facility] piperacilli n-tazobacta m (ZOSYN) 3.375 g in NaCl 0.9% (NS) 50 mL MINI-BAG 2021-11 09:15: 00 09-02 09:52 :00 No 3.375g 3.375 g, IV Piggyback, ONCE, 1 dose, On [place] 09/02/22 at 0415, Administer over 30 Minutes, 50 mL
Reas on for Anti-Infec tive: Documented Infection< br>Documen vern Infection Site: Skin / Soft Tissue
Duration of Therapy: Other (see Comments) [facility] acetaminoph en (TYLENOL) tablet 1,000 mg 2021-11 05:00: 00 08-30 04:18 :00 No 1000mg 1,000 mg, Oral, ONCE, 1 dose, On [facility] 08/30/22 at 0000, JENNIFER [facility] ketorolac (TORADOL) injection 30 mg 2021-11 05:00: 00 08-30 04:20 :00 No 30mg 30 mg, Intramuscu lar, ONCE, 1 dose, On [facility] 08/30/22 at 0000, Routine [facility] ondansetron 4 mg disintegrat ing tablet 2021-11 00:00: 00 Yes [id number] 4mg Take 1 tablet by mouth every 8 (eight) hours as needed for Nausea and Vomiting (N/V). [facility] TAKE 1 TABLET BY MOUTH TWICE A DAY 07-30 00:00: 00 No Dose Unknown 07-30 00:00: 00 No TAKE 1 TABLET BY MOUTH TWICE A DAY 06-22 00:00: 00 No 1000 NaCl 0.9% (NS) bolus infusion 1,000 mL 06-21 03:15: 00 06-21 03:31 :00 No 1000mL at 999 mL/hr, 1,000 mL, IV Infusion, ONCE, 1 dose, On Sat06/20/22 at 2215, JENNIFER [facility] clindamycin (CLEOCIN) injection 600 mg 06-21 02:15: 06-21 02:43 :00 No 600mg 600 mg, IV Piggyback, ONCE, 1 dose, On Sat06/20/22 at 2115, JENNIFER
Re ason for Anti-Infec tive: Documented Infection< br>Documen vern Infection Site: Skin / Soft Tissue
Duration of Therapy: 7 days
Re stricted use approved by: ED PROVIDER [facility] mupirocin 2 % ointment 06-20 00:00: 00 09-05 00:00 :00 No [id number] Apply to area(s) 3 (three) times daily. [facility] clindamycin 300 mg capsule 06-20 00:00: 00 06-28 04:59 :00 No [id number] 300mg Take 1 capsule by mouth 4 (four) times daily for 7 days. [facility] Novolin N NPH U-100 Insulin isophane 100 unit/mL subcutaneou s susp 03-18 00:00: 00 No unit/mL glipizide 10 mg tablet 03-18 00:00: 00 No 1mg metformin 1,000 mg tablet 03-18 00:00: 00 No 1mg atorvastati n 20 mg tablet 03-18 00:00: 00 No 1mg Dose Unknown 2022-0 5-15 00:00: 00 No Dose Unknown 0 15 00:00: 00 No Dose Unknown 0 15 00:00: 00 No Dose Unknown 0 03-15 00:00: 00 No Dose Unknown 0 03-15 00:00: 00 No Dose Unknown 0 03-15 00:00: 00 No neomycin-po lymyxin-hyd rocort 3.5 mg-10,000 unit/mL-1 % ear drops,susp 0 03-14 00:00: 00 No 3mg/mL- unit/mL -% prednisone 20 mg tablet 0 03-14 00:00: 00 No mg amoxicillin 875 mg tablet 0 03-14 00:00: 00 No 1mg Dose Unknown 0 03-14 00:00: 00 No Dose Unknown 0 03-14 00:00: 00 No Dose Unknown 0 03-13 00:00: 00 No Dose Unknown 0 03-13 00:00: 00 No magnesium oxide 420 mg tablet 0 03-12 00:00: 00 No 1mg metoclopram victorino 5 mg tablet 0 03-12 00:00: 00 No 1mg Lactobacill us acidophilus 0.5 mg (100 million cell) tablet 0 03-12 00:00: 00 No 1millio n cell) Dose Unknown 0 03-12 00:00: 00 No Dose Unknown 0 03-12 00:00: 00 No Dose Unknown 0 03-12 00:00: 00 No Dose Unknown 2021-0 03-12 00:00: 00 No Dose Unknown 2021-0 03-07 00:00: 00 No Dose Unknown 2021-0 03-07 00:00: 00 No Dose Unknown 2021-0 03-07 00:00: 00 No Dose Unknown 2021-0 03-07 00:00: 00 No Dose Unknown 2-0 03-05 00:00: 00 No Dose Unknown 2021-0 5 00:00: 00 No Dose Unknown 2021-0 5 00:00: 00 No Dose Unknown 2021-0 5 00:00: 00 No Dose Unknown 2-0 30 00:00: 00 No Dose Unknown 03-03 00:00: 00 No Dose Unknown 03-03 00:00: 00 No Dose Unknown 03-03 00:00: 00 No aspirin 81 mg EC tablet 02-23 00:00: 00 03-26 04:59 :00 No [id number] 81mg Take 1 tablet by mouth daily for 30 days. [facility] lactobacill us acidophilus 02-23 00:00: 00 03-26 04:59 :00 No [id number] .5mg Take 1 tablet by mouth daily for 30 days. [facility] KCL 20 mEq tablet 02-23 00:00: 00 03-01 04:59 :00 No [id number] 20meq Take 1 tablet by mouth daily for 5 days. [facility] atorvastati n (LIPITOR) tablet 20 mg 02-22 02:00: 00 Yes 20mg 20 mg, Oral, QHS, First dose on Sat02/21/22 at 2100, Until Discontinu ed, Routine [facility] insulin NPH and regular human 70-30 100 unit/mL (70-30) injection 02-22 00:00: 00 Yes [id number] 10U inject 10 Units under the skin 2 (two) times daily before breakfast and dinner. [facility] magnesium oxide 420 mg Tab 02-22 00:00: 00 12-08 00:00 :00 No [id number] 400mg Take 400 mg by mouth daily. [facility] mupirocin 2 % ointment 02-22 00:00: 00 09-05 00:00 :00 No [id number] Apply to area(s) 2 (two) times daily. [facility] atorvastati n 20 mg tablet 02-22 00:00: 00 03-25 04:59 :00 No [id number] 20mg Take 1 tablet by mouth at bedtime for 30 days. [facility] glipiZIDE 10 mg tablet 02-22 00:00: 00 03-25 04:59 :00 No [id number] 10mg Take 1 tablet by mouth 2 (two) times daily before breakfast and dinner for 30 days. [facility] KCL (KLOR-CON M20) tablet 20 mEq 02-21 14:00: 00 Yes 20meq 20 mEq, Oral, DAILY, First dose on Sat02/21/22 at 0900, Until Discontinu ed, Routine [facility] aspirin EC tablet 81 mg 02-21 14:00: 00 Yes 81mg 81 mg, Oral, DAILY, First dose on Sat02/21/22 at 0900, Until Discontinu ed, Routine [facility] magnesium oxide (MAG-OX 400) tablet 400 mg 02-21 13:00: 00 Yes 400mg 400 mg, Oral, BID, First dose on Sat02/21/22 at 0800, Until Discontinu ed, Routine [facility] insulin NPH and regular human 70-30 (HUMULIN 70-30 U-100 INSULIN) 100 unit/mL (70-30) injection 10 Units 02-21 12:30: 00 Yes 10U 10 Units, Subcutaneo us, BIDAC, First dose on Sat02/21/22 at 0730, Until Discontinu ed, Routine [facility] magnesium sulfate in water 2 gram/50 mL (4 %) infusion 2 g 02-21 12:15: 00 02-21 15:07 :00 No 2g 2 g, IV Piggyback, Administer over 60 Minutes, ONCE, 1 dose, On Sat02/21/22 at 0715, Routine [facility] glipiZIDE (GLUCOTROL) tablet 10 mg 02-21 03:45: 00 Yes 10mg 10 mg, Oral, BIDAC, First dose on Sat02/20/22 at 2245, Until Discontinu ed, Routine [facility] Sliding Scale Insulin - Lispro (HumaLOG) + Fsbg Testing 02-21 03:45: 00 Yes Subcutaneo us, TID MEALS+HS, First dose on Sat02/20/22 at 2245, Until Discontinu ed, Routine [facility] mupirocin (BACTROBAN OINT) 2 % skin ointment 02-20 22:00: 00 Yes [facility] enoxaparin (LOVENOX) injection 40 mg 02-20 22:00: 00 Yes 40mg 40 mg, Subcutaneo us, DAILY, First dose on Sat02/20/22 at 1700, Until Discontinu ed, Routine [facility] lactobacill us acidophilus tablet 0.5 mg 02-20 21:45: 00 Yes .5mg 0.5 mg, Oral, DAILY, First dose on Sat02/20/22 at 1645, Until Discontinu ed, Routine [facility] ondansetron (ZOFRAN (PF)) injection 4 mg 02-20 20:22: 47 Yes 4mg 4 mg, Slow IV Push, Q6HPRN, Starting on Sat02/20/22 at 1522, Until Discontinu ed, Routine, Nausea and Vomiting (N/V) [facility] HYDROcodone -acetaminop hen (NORCO 5) 5-325 mg tablet 1 tablet 02-20 20:22: 42 02-22 20:21 :42 No 1{tbl} 1 tablet, Oral, Q6HPRN, Starting on Sat02/20/22 at 1522, Until Sat02/22/22 at 1521, Routine, Pain (scale 4-6) [facility] acetaminoph en (TYLENOL) tablet 650 mg 02-20 20:22: 34 Yes 650mg 650 mg, Oral, Q6HPRN, Starting on Sat02/20/22 at 1522, Until Discontinu ed, Routine, Pain (scale 1-3), Temp > 38.5 C [facility] piperacilli n-tazobacta m (ZOSYN) 3.375 g in NaCl 0.9% (NS) 50 mL MINI-BAG 02-20 20:15: 00 02-20 20:26 :00 No 3.375g 3.375 g, IV Piggyback, ONCE, 1 dose, On Sat02/20/22 at 1515, Administer over 30 Minutes, 50 mL
Reas on for Anti-Infec tive: Empiric Therapy for Suspected Infection< br>Empiric Therapy Site: Skin / Soft tissue
Duration of therapy: 72 hours [facility] NaCl 0.9% (NS) bolus infusion 1,000 mL 02-20 18:30: 00 02-20 17:46 :00 No 1000mL at 999 mL/hr, 1,000 mL, IV Infusion, ONCE, 1 dose, On Sat02/20/22 at 1330, [facility] insulin regular human (HUMULIN R) injection 10 Units 02-20 18:30: 00 02-20 17:39 :00 No 10U 10 Units, Slow IV Push, ONCE, 1 dose, On Sat02/20/22 at 1330, [facility] vancomycin (VANCOCIN) 1,000 mg in NaCl 0.9% [...] Soft tissue
Duration of therapy: 72 hours [facility] NaCl 0.9% (NS) bolus infusion 1,250 mL 02-20 17:45: 00 02-20 18:57 :00 No 1250mL at 999 mL/hr, 1,250 mL, IV Infusion, ONCE, 1 dose, On Sat02/20/22 at 1245, [facility] NaCl 0.9% (NS) bolus infusion 1,000 mL 02-20 17:15: 00 02-20 17:05 :00 No 1000mL at 999 mL/hr, 1,000 mL, IV Infusion, ONCE, 1 dose, On Sat02/20/22 at 1215, JENNIFER [facility] mupirocin 2 % topical ointment 8 00:00: 00 No 1% clindamycin HCl 300 mg capsule 824 00:00: 00 No 1mg Ciprodex 0.3 %-0.1 % ear drops,suspe nsion 8- 00:00: 00 No 4% Bactrim DS 800 mg-160 mg tablet 8 00:00: 00 No 1mg Clindacin ETZ 1 % topical kit 06-19 00:00: 00 No 1% Dose Unknown 7- 00:00: 00 No Dose Unknown 7 00:00: 00 No Dose Unknown 7- 00:00: [...] 00 No 1mg metformin 1,000 mg tablet 3-10 00:00: 00 No 1mg Dose Unknown 3-10 00:00: 00 No gabapentin 300 mg capsule 3-10 00:00: 00 No 1mg triamcinolo ne acetonide 0.1 % topical cream 2-08 00:00: 00 No 1% Caladryl 1 %-8 % lotion 2- 00:00: 00 No 1% hydroxyzine HCl 25 mg tablet 12-05 00:00: 00 No 1mg Novolin N NPH U-100 Insulin isophane 100 unit/mL subcutaneou s susp 11-14 00:00: 00 No 10unit/ mL amlodipine 5 mg tablet 11-14 00:00: 00 No 1mg glipizide 10 mg tablet 11-14 00:00: 00 No 1mg metformin 1,000 mg [...] 10/15/20 at 0900, Until Discontinu ed, Routine [facility] levofloxaci n 750 mg tablet 2019-11 00:00: 00 No 1mg tramadol 50 mg tablet 2019-11 00:00: 00 No 1mg glipizide 10 mg tablet 2019-11 00:00: 00 No 1mg atorvastati n 20 mg tablet 2019-11 00:00: 00 No 1mg doxycycline hyclate 100 mg capsule 2019-11 00:00: 00 No 1mg collagenase 250 unit/gram ointment 2019-11 00:00: 00 02-22 00:00 :00 No [id number] Apply to affected area(s) daily. [facility] lisinopriL 5 mg tablet 2019-11 00:00: 00 01-14 05:59 :00 No [id number] 5mg Take 1 tablet by mouth daily for 90 days. [facility] aspirin 81 mg chewable tablet 2019-11 00:00: 01-14 05:59 :00 No [id number] 81mg Take 1 tablet by mouth daily with breakfast for 90 days. [facility] KCL (KLOR-CON M20) tablet 40 mEq 2019-11 22:30: 00 10-14 22:47 :00 No 40meq 40 mEq, Oral, ONCE, 1 dose, 10/14/20 at 1630, JENNIFER [facility] metFORMIN 1,000 mg tablet 2019-11 21:35: 46 10-14 00:00 :00 No 1000mg Take 1,000 mg by mouth 2 (two) times daily with meals. [facility] glipiZIDE 10 mg tablet 2019-11:35: 46 10-14 00:00 :00 No 10mg Take 10 mg by mouth 2 (two) times daily before breakfast and dinner. [facility] atorvastati n (LIPITOR) tablet 20 mg 2019-11 03:00: 00 Yes 20mg 20 mg, Oral, QHS, First dose on [place] 10/13/20 at 2100, Until Discontinu ed, Routine [facility] traMADoL 50 mg tablet 2019-11 00:00: 00 09-05 00:00 :00 No [id number] 50mg Take 1 tablet by mouth 2 (two) times daily as needed for Pain (scale 4-6) or Pain (scale 7-10). Indication s: acute pain [facility] insulin NPH and regular human 70-30 100 unit/mL (70-30) injection 2019-11 00:00: 00 02-22 00:00 :00 No [id number] 15U inject 15 Units under the skin 2 (two) times daily before breakfast and dinner. [employer] brand, [employer]ion or whatever brand is cheapest [facility] metFORMIN 1,000 mg tablet 2019-11 00:00: 00 01-13 05:59 :00 No [id number] 1000mg Take 1 tablet by mouth 2 (two) times daily with meals for 90 days. [facility] glipiZIDE 10 mg tablet 2019-11 00:00: 00 01-13 05:59 :00 No [id number] 10mg Take 1 tablet by mouth 2 (two) times daily before breakfast and dinner for 90 days. [facility] atorvastati n 20 mg tablet 2019-11 00:00: 00 01-13 05:59 :00 No [id number] 20mg Take 1 tablet by mouth at bedtime for 90 days. [facility] lactobacill us acidophilus 25 million cell -100 mg captab 2019-11 00:00: 00 10-29 05:59 :00 No [id number] 1{tbl} Take 1 tablet by mouth 2 (two) times daily for 14 days. [facility] doxycycline hyclate 100 mg capsule 2019-11 00:00: 00 10-25 05:59 :00 No [id number] 100mg Take 1 capsule by mouth every 12 (twelve) hours for 10 days. [facility] levoFLOXaci n 750 mg tablet 2019-11 00:00: 00 10-22 05:59 :00 No [id number] 750mg Take 1 tablet by mouth every 24 (twenty-fo ur) hours for 7 days. [facility] vancomycin (VANCOCIN) 1,000 mg in NaCl 0.9% (NS) 250 mL VIAL-MATE IV piggyback 2019-11 18:00: 00 Yes 1000mg 1,000 mg, IV Piggyback, Q12H ABX, First dose (after last reorder) on Sat10/13/20 at 1200, Until Discontinu ed, 250 mL
Reas on for Anti-Infec tive: Documented Infection< br>Documen vern Infection Site: Skin / Soft Tissue
Duration of Therapy: Other (see Comments) [facility] aspirin chewable tablet 81 mg 2019-11 17:00: 00 Yes 81mg 81 mg, Oral, QAM WITH BREAKFAST, First dose on Sat10/13/20 at 1100, Until Discontinu ed, Routine [facility] lactobacill us acidophilus (ACIDOPHILL US) 25 million cell -100 mg captab 1 tablet 2019-11 17:00: 00 Yes 1{tbl} 1 tablet, Oral, BID, First dose on Sat10/13/20 at 1100, Until Discontinu ed, Routine [facility] enoxaparin (LOVENOX) injection 30 mg 2019-11 15:00: 00 Yes 30mg 30 mg, Subcutaneo us, DAILY, First dose on Sat10/13/20 at 0900, Until Discontinu ed, Routine [facility] zinc sulfate (ORAZINC) capsule 220 mg 2019-11 15:00: 00 Yes 220mg 220 mg, Oral, DAILY, First dose on Sat10/13/20 at 0900, Until Discontinu ed, Routine [facility] ergocalcife rol (vitamin d2) (CALCIFEROL ) capsule 50,000 Units 2019-11 15:00: 00 Yes [id number] 50,000 Units, Oral, QWEEKLY, First dose on Sat10/13/20 at 0900, Until Discontinu ed, Routine [facility] lisinopriL (PRINIVIL,Z ESTRIL) tablet 10 mg 2019-11 15:00: 00 10-14 21:31 :01 No 10mg 10 mg, Oral, DAILY, First dose on Sat10/13/20 at 0900, Until Discontinu ed, Routine [facility] ascorbic acid (vitamin C) (VITAMIN C) tablet 500 mg 2019-11 14:00: 00 Yes 500mg 500 mg, Oral, TID, First dose on Sat10/13/20 at 0800, Until Discontinu ed, Routine [facility] glipiZIDE (GLUCOTROL) tablet 10 mg 2019-11 13:30: 00 Yes 10mg 10 mg, Oral, BIDAC, First dose on Sat10/13/20 at 0730, Until Discontinu ed, Routine [facility] insulin NPH and regular human 70-30 (HUMULIN 70-30 U-100 INSULIN) 100 unit/mL (70-30) injection 15 Units 2019-11 13:30: 00 Yes 15U 15 Units, Subcutaneo us, BIDAC, First dose on [place] 10/13/20 at 0730, Until Discontinu ed, Routine [facility] piperacilli n-tazobacta m (ZOSYN) 3.375 g in NaCl 0.9% (NS) 100 mL MINI-BAG 2019-11 05:45: 00 Yes 3.375g 3.375 g, IV Piggyback, Q6H ABX, First dose on Sat10/12/20 at 2345, Until Discontinu ed, 100 mL
Reas on for Anti-Infec tive: Documented Infection< br>Documen vern Infection Site: Skin / Soft Tissue
Duration of Therapy: 14 days [facility] insulin glargine (LANTUS U-100) injection 5 Units 2019-11 04:45: 00 10-14 21:30 :42 No 5U 5 Units, Subcutaneo us, QHS, First dose on Sat10/12/20 at 2245, Until Discontinu ed, [facility] 2.5 mg 2019-11 04:37: 33 Yes 2.5mg 2.5 mg, IV Push, Q5MIN PRN, Starting Sat10/12/20 at 2237, Until Discontinu ed, Routine, Hypertensi on >160/100 [facility] Sl[facility] Ins[facility] - Lispro (HumaLOG) + Fsbg Testing 2019-11 03:00: 00 Yes Subcutaneo us, TID MEALS+HS, First dose on Sat10/12/20 at 2100, Until Discontinu ed, [facility] collagenase (SANTYL) ointment 2019-11 01:00: 00 Yes Topical (Apply To Affected Areas), DAILY, First dose on Sat10/12/20 at 1900, Until Discontinu ed, Routine [facility] glucagon (GLUCAGEN DIAGNOSTIC KIT) injection 1 mg 2019-11 00:30: 53 Yes 1mg 1 mg, Intramuscu lar, PRN, Starting Sat10/12/20 at 1830, Until Discontinu ed, JENNIFER, Blood Glucose < or = 70 mg/dL and patient is unable to swallow or has mental changes. [facility] dextrose 50 % in water (D50W) injection 25 mL 2019-11 00:30: 53 Yes 25mL 25 mL, Slow IV Push, PRN, Starting Sat10/12/20 at 1830, Until Discontinu ed, JENNIFER, Blood Glucose < or = 70 mg/dL and patient is unable to swallow or has mental status changes. [facility] iohexol (OMNIPAQUE 350 BULK-100 mL) injection 100 mL 2019-11 00:30: 00 10-13 00:30 :00 No 100mL 100 mL, Intravenou s, ONCE, 1 dose, Sat10/12/20 at 1830, Routine [facility] traMADoL (ULTRAM) tablet 50 mg 2019-11 23:44: 57 10-14 23:43 :57 No 50mg 50 mg, Oral, Q8HPRN, Starting Sat10/12/20 at 1744, Until Sat10/14/20 at 1743, Routine, Pain (scale 4-6) [facility] acetaminoph en (TYLENOL) tablet 650 mg 2019-11 23:44: 54 Yes 650mg 650 mg, Oral, Q6HPRN, Starting Sat10/12/20 at 1744, Until Discontinu ed, Routine, Pain (scale 1-3) [facility] vancomycin (VANCOCIN) 1,000 mg in NaCl 0.9% (NS) 250 mL VIAL-MATE IV piggyback 2019-11 22:45: 00 10-13 00:45 :00 No 1000mg 1,000 mg, IV Piggyback, ONCE, 1 dose, Sat10/12/20 at 1645, 250 mL
Reas on for Anti-Infec tive: Documented Infection< br>Documen vern Infection Site: Skin / Soft Tissue
Duration of Therapy: Other (see Comments) [facility] naproxen (NAPROSYN) tablet 500 mg 06-25 21:15: 00 06-25 20:27 :00 No 500mg 500 mg, Oral, ONCE, 1 dose, 8/22/20 at 1615, Routine [facility] cephALEXin (KEFLEX) capsule 500 mg 06-25 21:15: 00 06-25 20:27 :00 No 500mg 500 mg, Oral, ONCE, 1 dose, 06/25/20 at 1615, JENNIFER
Re ason for Anti-Infec tive: Documented Infection< br>Documen vern Infection Site: Skin / Soft Tissue
Duration of Therapy: 10 days [facility] mupirocin 2 % ointment 06-25 00:00: 00 02-22 00:00 :00 No [id number] Apply to area(s) 3 (three) times daily. [facility] naproxen (NAPROSYN) 500 mg tablet 06-25 00:00: 00 10-14 00:00 :00 No [id number] 500mg Take 1 tablet by mouth 2 (two) times daily with meals. [facility] cephALEXin (KEFLEX) 500 mg capsule 06-25 00:00: 00 07-06 04:59 :00 No [id number] 500mg Take 1 capsule by mouth 3 (three) times daily for 10 days. [facility] Novolin N NPH U-100 Insulin isophane 100 [...] 03-15 00:00: 00 10-14 00:00 :00 No [id number] 50mg Take 1 tablet by mouth every 6 (six) hours as needed for Pain (scale 4-6). [facility] ibuprofen 600 mg tablet 03-15 00:00: 00 10-14 00:00 :00 No [id number] 600mg Take 1 tablet by mouth every 8 (eight) hours as needed for Pain (scale 4-6). [facility] metFORMIN 1,000 mg tablet 11-28 22:58: 51 Yes 1000mg Take 1,000 mg by mouth 2 (two) times daily with meals. [facility] glipiZIDE 10 mg tablet 11-28 22:58: 51 Yes 10mg Take 10 mg by mouth 2 (two) times daily before breakfast and dinner. [facility] glipizide 10 mg tablet 02-13 00:00: 00 [...] 10mg Take 1 tablet by mouth daily. [facility] Novolin R 100 unit/mL injection solution 04-23 [...] Pneumococcal Polysaccharide, PPSV23 (PNEUMOVAX) 2017-06-20 00:00:00 Completed [facility] Pneumococcal Polysaccharide, PPSV23 (PNEUMOVAX) 2017-06-20 00:00:00 Completed [facility] Pneumococcal Polysaccharide, PPSV23 (PNEUMOVAX) 2017-06-20 00:00:00 Completed [facility] Pneumococcal Polysaccharide, PPSV23 (PNEUMOVAX) 2017-06-20 00:00:00 Completed [facility] Pneumococcal Polysaccharide, PPSV23 (PNEUMOVAX) 2017-06-20 00:00:00 Completed [facility] Pneumococcal Polysaccharide, PPSV23 (PNEUMOVAX) 2017-06-20 00:00:00 Completed [facility] Pneumococcal Polysaccharide, PPSV23 (PNEUMOVAX) 2017-06-20 00:00:00 Completed [facility] Pneumococcal Polysaccharide, PPSV23 (PNEUMOVAX) 2017-06-20 00:00:00 Completed [facility] Pneumococcal Polysaccharide, PPSV23 (PNEUMOVAX) 2017-06-20 00:00:00 Completed [facility] Pneumococcal Polysaccharide, PPSV23 (PNEUMOVAX) 2017-06-20 00:00:00 Completed [facility] Pneumococcal Polysaccharide, PPSV23 (PNEUMOVAX) 2017-06-20 00:00:00 Completed [facility] Pneumococcal Polysaccharide, PPSV23 (PNEUMOVAX) 2017-06-20 00:00:00 Completed [facility] Pneumococcal Polysaccharide, PPSV23 (PNEUMOVAX) 2017-06-20 00:00:00 Completed [facility] Pneumococcal Polysaccharide, PPSV23 (PNEUMOVAX) 2017-06-20 00:00:00 Completed [facility] Pneumococcal Polysaccharide, PPSV23 (PNEUMOVAX) 2017-06-20 00:00:00 Completed [facility] Pneumococcal Polysaccharide, PPSV23 (PNEUMOVAX) 2017-06-20 00:00:00 Completed [facility] Pneumococcal Polysaccharide, PPSV23 (PNEUMOVAX) 2017-06-20 00:00:00 Completed [facility] Pneumococcal Polysaccharide, PPSV23 (PNEUMOVAX) 2017-06-20 00:00:00 Completed [facility] Pneumococcal Polysaccharide, PPSV23 (PNEUMOVAX) 2017-06-20 00:00:00 Completed [facility] Pneumococcal Polysaccharide, PPSV23 (PNEUMOVAX) 2017-06-20 00:00:00 Completed [facility] Pneumococcal Polysaccharide, PPSV23 (PNEUMOVAX) 2017-06-20 00:00:00 Completed [facility] Pneumococcal Polysaccharide, PPSV23 (PNEUMOVAX) 2017-06-20 00:00:00 Completed [facility] Pneumococcal Polysaccharide, PPSV23 (PNEUMOVAX) 2017-06-20 00:00:00 Completed [facility] Pneumococcal Polysaccharide, PPSV23 (PNEUMOVAX) 2017-06-20 00:00:00 Completed [facility] Pneumococcal Polysaccharide, PPSV23 (PNEUMOVAX) 2017-06-20 00:00:00 Completed [facility] Pneumococcal Polysaccharide, PPSV23 (PNEUMOVAX) 2017-06-20 00:00:00 Completed [facility] Pneumococcal Polysaccharide, PPSV23 (PNEUMOVAX) 2017-06-20 00:00:00 Completed [facility] Pneumococcal Polysaccharide, PPSV23 (PNEUMOVAX) 2017-06-20 00:00:00 Completed [facility] Pneumococcal Polysaccharide, PPSV23 (PNEUMOVAX) 2017-06-20 00:00:00 Completed [facility] Pneumococcal Polysaccharide, PPSV23 (PNEUMOVAX) 2017-06-20 00:00:00 Completed [facility] Pneumococcal Polysaccharide, PPSV23 (PNEUMOVAX) 2017-06-20 00:00:00 Completed [facility] Pneumococcal Polysaccharide, PPSV23 (PNEUMOVAX) 2017-06-20 00:00:00 Completed [facility] Pneumococcal Polysaccharide, PPSV23 (PNEUMOVAX) 2017-06-20 00:00:00 Completed [facility] Pneumococcal Polysaccharide, PPSV23 (PNEUMOVAX) 2017-06-20 00:00:00 Completed [facility] Pneumococcal Polysaccharide, PPSV23 (PNEUMOVAX) 2017-06-20 00:00:00 Completed [facility] Pneumococcal Polysaccharide, PPSV23 (PNEUMOVAX) 2017-06-20 00:00:00 Completed [facility] Pneumococcal Polysaccharide, PPSV23 (PNEUMOVAX) 2017-06-20 00:00:00 Completed [facility] Pneumococcal Polysaccharide, PPSV23 (PNEUMOVAX) 2017-06-20 00:00:00 Completed [facility] Pneumococcal Polysaccharide, PPSV23 (PNEUMOVAX) 2017-06-20 00:00:00 Completed [facility] Pneumococcal Polysaccharide, PPSV23 (PNEUMOVAX) 2017-06-20 00:00:00 Completed [facility] Pneumococcal Polysaccharide, PPSV23 (PNEUMOVAX) 2017-06-20 00:00:00 Completed [facility] Pneumococcal Polysaccharide, PPSV23 (PNEUMOVAX) 2017-06-20 00:00:00 Completed [facility] Pneumococcal Polysaccharide, PPSV23 (PNEUMOVAX) 2017-06-20 00:00:00 Completed [facility] Pneumococcal Polysaccharide, PPSV23 (PNEUMOVAX) 2017-06-20 00:00:00 Completed [facility] Pneumococcal Polysaccharide, PPSV23 (PNEUMOVAX) 2017-06-20 00:00:00 Completed [facility] Pneumococcal Polysaccharide, PPSV23 (PNEUMOVAX) 2017-06-20 00:00:00 Completed [facility] Pneumococcal Polysaccharide, PPSV23 (PNEUMOVAX) 2017-06-20 00:00:00 Completed [facility] Pneumococcal Polysaccharide, PPSV23 (PNEUMOVAX) 2017-06-20 00:00:00 Completed [facility] Pneumococcal Polysaccharide, PPSV23 (PNEUMOVAX) 2017-06-20 00:00:00 Completed [facility] Pneumococcal Polysaccharide, PPSV23 (PNEUMOVAX) 2017-06-20 00:00:00 Completed [facility] Pneumococcal Polysaccharide, PPSV23 (PNEUMOVAX) 2017-06-20 00:00:00 Completed [facility] Pneumococcal Polysaccharide, PPSV23 (PNEUMOVAX) 2017-06-20 00:00:00 Completed [facility] Pneumococcal Polysaccharide, PPSV23 (PNEUMOVAX) 2017-06-20 00:00:00 Completed [facility] Pneumococcal Polysaccharide, PPSV23 (PNEUMOVAX) 2017-06-20 00:00:00 Completed [facility] Pneumococcal Polysaccharide, PPSV23 (PNEUMOVAX) 2017-06-20 00:00:00 Completed [facility] Pneumococcal Polysaccharide, PPSV23 (PNEUMOVAX) 2017-06-20 00:00:00 Completed [facility] Pneumococcal Polysaccharide, PPSV23 (PNEUMOVAX) 2017-06-20 00:00:00 Completed [facility] Pneumococcal Polysaccharide, PPSV23 (PNEUMOVAX) 2017-06-20 00:00:00 Completed [facility] Pneumococcal Polysaccharide, PPSV23 (PNEUMOVAX) 2017-06-20 00:00:00 Completed [facility] Pneumococcal Polysaccharide, PPSV23 (PNEUMOVAX) 2017-06-20 00:00:00 Completed [facility] Pneumococcal Polysaccharide, PPSV23 (PNEUMOVAX) 2017-06-20 00:00:00 Completed [facility] Pneumococcal Polysaccharide, PPSV23 (PNEUMOVAX) 2017-06-20 00:00:00 Completed [facility] Pneumococcal Polysaccharide, PPSV23 (PNEUMOVAX) 2017-06-20 00:00:00 Completed [facility] Pneumococcal Polysaccharide, PPSV23 (PNEUMOVAX) 2017-06-20 00:00:00 Completed [facility] Pneumococcal Polysaccharide, PPSV23 (PNEUMOVAX) 2017-06-20 00:00:00 Completed [facility] Pneumococcal Polysaccharide, PPSV23 (PNEUMOVAX) 2017-06-20 00:00:00 Completed [facility] Pneumococcal Polysaccharide, PPSV23 (PNEUMOVAX) 2017-06-20 00:00:00 Completed [facility] Pneumococcal Polysaccharide, PPSV23 (PNEUMOVAX) 2017-06-20 00:00:00 Completed [facility] Pneumococcal Polysaccharide, PPSV23 (PNEUMOVAX) 2017-06-20 00:00:00 Completed [facility] Pneumococcal Polysaccharide, PPSV23 (PNEUMOVAX) 2017-06-20 00:00:00 Completed [facility] Pneumococcal Polysaccharide, PPSV23 (PNEUMOVAX) 2017-06-20 00:00:00 Completed [facility] Pneumococcal Polysaccharide, PPSV23 (PNEUMOVAX) 2017-06-20 00:00:00 Completed [facility] Pneumococcal Polysaccharide, PPSV23 (PNEUMOVAX) 2017-06-20 00:00:00 Completed [facility] Pneumococcal Polysaccharide, PPSV23 (PNEUMOVAX) 2017-06-20 00:00:00 Completed [facility] Pneumococcal Polysaccharide, PPSV23 (PNEUMOVAX) 2017-06-20 00:00:00 Completed [facility] Pneumococcal Polysaccharide, PPSV23 (PNEUMOVAX) 2017-06-20 00:00:00 Completed [facility] Pneumococcal Polysaccharide, PPSV23 (PNEUMOVAX) 2017-06-20 00:00:00 Completed [facility] Pneumococcal Polysaccharide, PPSV23 (PNEUMOVAX) 2017-06-20 00:00:00 Completed [facility] Pneumococcal Polysaccharide, PPSV23 (PNEUMOVAX) 2017-06-20 00:00:00 Completed [facility] Pneumococcal Polysaccharide, PPSV23 (PNEUMOVAX) 2017-06-20 00:00:00 Completed [facility] Pneumococcal Polysaccharide, PPSV23 (PNEUMOVAX) 2017-06-20 00:00:00 Completed [facility] Pneumococcal Polysaccharide, PPSV23 (PNEUMOVAX) 2017-06-20 00:00:00 Completed [facility] Pneumococcal Polysaccharide, PPSV23 (PNEUMOVAX) 2017-06-20 00:00:00 Completed [facility] Pneumococcal Polysaccharide, PPSV23 (PNEUMOVAX) 2017-06-20 00:00:00 Completed [facility] Pneumococcal Polysaccharide, PPSV23 (PNEUMOVAX) 2017-06-20 00:00:00 Completed [facility] Pneumococcal Polysaccharide, PPSV23 (PNEUMOVAX) 2017-06-20 00:00:00 Completed [facility] Pneumococcal Polysaccharide, PPSV23 (PNEUMOVAX) 2017-06-20 00:00:00 Completed [facility] Pneumococcal Polysaccharide, PPSV23 (PNEUMOVAX) 2017-06-20 00:00:00 Completed [facility] Pneumococcal Polysaccharide, PPSV23 (PNEUMOVAX) 2017-06-20 00:00:00 Completed [facility] Pneumococcal Polysaccharide, PPSV23 (PNEUMOVAX) 2017-06-20 00:00:00 Completed [facility] Pneumococcal Polysaccharide, PPSV23 (PNEUMOVAX) 2017-06-20 00:00:00 Completed [facility] Pneumococcal Polysaccharide, PPSV23 (PNEUMOVAX) 2017-06-20 00:00:00 Completed [facility] Pneumococcal Polysaccharide, PPSV23 (PNEUMOVAX) 2017-06-20 00:00:00 Completed [facility] Pneumococcal Polysaccharide, PPSV23 (PNEUMOVAX) 2017-06-20 00:00:00 Completed [facility] Pneumococcal Polysaccharide, PPSV23 (PNEUMOVAX) 2017-06-20 00:00:00 Completed [facility] Pneumococcal Polysaccharide, PPSV23 (PNEUMOVAX) 2017-06-20 00:00:00 Completed [facility] Pneumococcal Polysaccharide, PPSV23 (PNEUMOVAX) 2017-06-20 00:00:00 Completed [facility] Pneumococcal Polysaccharide, PPSV23 (PNEUMOVAX) 2017-06-20 00:00:00 Completed [facility] Pneumococcal Polysaccharide, PPSV23 (PNEUMOVAX) 2017-06-20 00:00:00 Completed [facility] Pneumococcal Polysaccharide, PPSV23 (PNEUMOVAX) 2017-06-20 00:00:00 Completed [facility] Pneumococcal Polysaccharide, PPSV23 (PNEUMOVAX) 2017-06-20 00:00:00 Completed [facility] Pneumococcal Polysaccharide, PPSV23 (PNEUMOVAX) 2017-06-20 00:00:00 Completed [facility] Pneumococcal Polysaccharide, PPSV23 (PNEUMOVAX) 2017-06-20 00:00:00 Completed [facility] Pneumococcal Polysaccharide, PPSV23 (PNEUMOVAX) 2017-06-20 00:00:00 Completed [facility] Pneumococcal Polysaccharide, PPSV23 (PNEUMOVAX) 2017-06-20 00:00:00 Completed [facility] Pneumococcal Polysaccharide, PPSV23 (PNEUMOVAX) 2017-06-20 00:00:00 Completed [facility] Pneumococcal Polysaccharide, PPSV23 (PNEUMOVAX) 2017-06-20 00:00:00 Completed [facility] Pneumococcal Polysaccharide, PPSV23 (PNEUMOVAX) 2017-06-20 00:00:00 Completed [facility] Pneumococcal Polysaccharide, PPSV23 (PNEUMOVAX) 2017-06-20 00:00:00 Completed [facility] Pneumococcal Polysaccharide, PPSV23 (PNEUMOVAX) 2017-06-20 00:00:00 Completed [facility] Pneumococcal Polysaccharide, PPSV23 (PNEUMOVAX) 2017-06-20 00:00:00 Completed [facility] Pneumococcal Polysaccharide, PPSV23 (PNEUMOVAX) 2017-06-20 00:00:00 Completed [facility] Pneumococcal Polysaccharide, PPSV23 (PNEUMOVAX) 2017-06-20 00:00:00 Completed [facility] Pneumococcal Polysaccharide, PPSV23 (PNEUMOVAX) 2017-06-20 00:00:00 Completed [facility] Pneumococcal Polysaccharide, PPSV23 (PNEUMOVAX) 2017-06-20 00:00:00 Completed [facility] Pneumococcal Polysaccharide, PPSV23 (PNEUMOVAX) 2017-06-20 00:00:00 Completed [facility] Pneumococcal Polysaccharide, PPSV23 (PNEUMOVAX) 2017-06-20 00:00:00 Completed [facility] Pneumococcal Polysaccharide, PPSV23 (PNEUMOVAX) 2017-06-20 00:00:00 Completed [facility] Pneumococcal Polysaccharide, PPSV23 (PNEUMOVAX) 2017-06-20 00:00:00 Completed [facility] Pneumococcal Polysaccharide, PPSV23 (PNEUMOVAX) 2017-06-20 00:00:00 Completed [facility] Pneumococcal Polysaccharide, PPSV23 (PNEUMOVAX) 2017-06-20 00:00:00 Completed [facility] Pneumococcal Polysaccharide, PPSV23 (PNEUMOVAX) 2017-06-20 00:00:00 Completed [facility] Pneumococcal Polysaccharide, PPSV23 (PNEUMOVAX) 2017-06-20 00:00:00 Completed [facility] Pneumococcal Polysaccharide, PPSV23 (PNEUMOVAX) 2017-06-20 00:00:00 Completed [facility] Pneumococcal Polysaccharide, PPSV23 (PNEUMOVAX) 2017-06-20 00:00:00 Completed [facility] Pneumococcal Polysaccharide, PPSV23 (PNEUMOVAX) 2017-06-20 00:00:00 Completed [facility] Pneumococcal Polysaccharide, PPSV23 (PNEUMOVAX) 2017-06-20 00:00:00 Completed [facility] Pneumococcal Polysaccharide, PPSV23 (PNEUMOVAX) 2017-06-20 00:00:00 Completed [facility] Pneumococcal Polysaccharide, PPSV23 (PNEUMOVAX) 2017-06-20 00:00:00 Completed [facility] TD, NOS 2017-06-09 00:00:00 Completed [facility] TD, NOS 2017-06-09 00:00:00 Completed [facility] Td 2017-06-09 00:00:00 Completed [facility] TD, NOS 2017-06-09 00:00:00 Completed [facility] TD, NOS 2017-06-09 00:00:00 Completed [facility] TD, NOS 2017-06-09 00:00:00 Completed [facility] TD, NOS 2017-06-09 00:00:00 Completed [facility] TD, NOS 2017-06-09 00:00:00 Completed [facility] TD, NOS 2017-06-09 00:00:00 Completed [facility] TD, NOS 2017-06-09 00:00:00 Completed [facility] Td 2017-06-09 00:00:00 Completed [facility] TD, NOS 2017-06-09 00:00:00 Completed [facility] TD, NOS 2017-06-09 00:00:00 Completed [facility] TD, NOS 2017-06-09 00:00:00 Completed [facility] TD, NOS 2017-06-09 00:00:00 Completed [facility] TD, NOS 2017-06-09 00:00:00 Completed [facility] TD, NOS 2017-06-09 00:00:00 Completed [facility] TD, NOS 2017-06-09 00:00:00 Completed [facility] TD, NOS 2017-06-09 00:00:00 Completed [facility] TD, NOS 2017-06-09 00:00:00 Completed [facility] TD, NOS 2017-06-09 00:00:00 Completed [facility] TD, NOS 2017-06-09 00:00:00 Completed [facility] TD, NOS 2017-06-09 00:00:00 Completed [facility] Td 2017-06-09 00:00:00 Completed [facility] TD, NOS 2017-06-09 00:00:00 Completed [facility] TD, NOS 2017-06-09 00:00:00 Completed [facility] TD, NOS 2017-06-09 00:00:00 Completed [facility] TD, NOS 2017-06-09 00:00:00 Completed [facility] TD, NOS 2017-06-09 00:00:00 Completed [facility] TD, NOS 2017-06-09 00:00:00 Completed [facility] TD, NOS 2017-06-09 00:00:00 Completed [facility] TD, NOS 2017-06-09 00:00:00 Completed [facility] TD, NOS 2017-06-09 00:00:00 Completed [facility] TD, NOS 2017-06-09 00:00:00 Completed [facility] TD, NOS 2017-06-09 00:00:00 Completed [facility] Td 2017-06-09 00:00:00 Completed [facility] TD, NOS 2017-06-09 00:00:00 Completed [facility] TD, NOS 2017-06-09 00:00:00 Completed [facility] TD, NOS 2017-06-09 00:00:00 Completed [facility] TD, NOS 2017-06-09 00:00:00 Completed [facility] TD, NOS 2017-06-09 00:00:00 Completed [facility] TD, NOS 2017-06-09 00:00:00 Completed [facility] TD, NOS 2017-06-09 00:00:00 Completed [facility] TD, NOS 2017-06-09 00:00:00 Completed [facility] TD, NOS 2017-06-09 00:00:00 Completed [facility] TD, NOS 2017-06-09 00:00:00 Completed [facility] TD, NOS 2017-06-09 00:00:00 Completed [facility] TD, NOS 2017-06-09 00:00:00 Completed [facility] TD, NOS 2017-06-09 00:00:00 Completed [facility] TD, NOS 2017-06-09 00:00:00 Completed [facility] TD, NOS 2017-06-09 00:00:00 Completed [facility] TD, NOS 2017-06-09 00:00:00 Completed [facility] TD, NOS 2017-06-09 00:00:00 Completed [facility] TD, NOS 2017-06-09 00:00:00 Completed [facility] TD, NOS 2017-06-09 00:00:00 Completed [facility] TD, NOS 2017-06-09 00:00:00 Completed [facility] TD, NOS 2017-06-09 00:00:00 Completed [facility] TD, NOS 2017-06-09 00:00:00 Completed [facility] TD, NOS 2017-06-09 00:00:00 Completed [facility] TD, NOS 2017-06-09 00:00:00 Completed [facility] TD, NOS 2017-06-09 00:00:00 Completed [facility] TD, NOS 2017-06-09 00:00:00 Completed [facility] TD, NOS 2017-06-09 00:00:00 Completed [facility] TD, NOS 2017-06-09 00:00:00 Completed [facility] TD, NOS 2017-06-09 00:00:00 Completed [facility] TD, NOS 2017-06-09 00:00:00 Completed [facility] TD, NOS 2017-06-09 00:00:00 Completed [facility] TD, NOS 2017-06-09 00:00:00 Completed [facility] TD, NOS 2017-06-09 00:00:00 Completed [facility] Td 2017-06-09 00:00:00 Completed [facility] TD, NOS 2017-06-09 00:00:00 Completed [facility] TD, NOS 2017-06-09 00:00:00 Completed [facility] TD, NOS 2017-06-09 00:00:00 Completed [facility] TD, NOS 2017-06-09 00:00:00 Completed [facility] TD, NOS 2017-06-09 00:00:00 Completed [facility] TD, NOS 2017-06-09 00:00:00 Completed [facility] TD, NOS 2017-06-09 00:00:00 Completed [facility] TD, NOS 2017-06-09 00:00:00 Completed [facility] TD, NOS 2017-06-09 00:00:00 Completed [facility] TD, NOS 2017-06-09 00:00:00 Completed [facility] TD, NOS 2017-06-09 00:00:00 Completed [facility] TD, NOS 2017-06-09 00:00:00 Completed [facility] TD, NOS 2017-06-09 00:00:00 Completed [facility] TD, NOS 2017-06-09 00:00:00 Completed [facility] TD, NOS 2017-06-09 00:00:00 Completed [facility] TD, NOS 2017-06-09 00:00:00 Completed [facility] TD, NOS 2017-06-09 00:00:00 Completed [facility] TD, NOS 2017-06-09 00:00:00 Completed [facility] TD, NOS 2017-06-09 00:00:00 Completed [facility] TD, NOS 2017-06-09 00:00:00 Completed [facility] TD, NOS 2017-06-09 00:00:00 Completed [facility] TD, NOS 2017-06-09 00:00:00 Completed [facility] TD, NOS 2017-06-09 00:00:00 Completed [facility] TD, NOS 2017-06-09 00:00:00 Completed [facility] TD, NOS 2017-06-09 00:00:00 Completed [facility] Td 2017-06-09 00:00:00 Completed [facility] TD, NOS 2017-06-09 00:00:00 Completed [facility] Td 2017-06-09 00:00:00 Completed [facility] Td 2017-06-09 00:00:00 Completed [facility] Td 2017-06-09 00:00:00 Completed [facility] Td 2017-06-09 00:00:00 Completed [facility] Td 2017-06-09 00:00:00 Completed [facility] Td 2017-06-09 00:00:00 Completed [facility] Td 2017-06-09 00:00:00 Completed [facility] Td 2017-06-09 00:00:00 Completed [facility] Td 2017-06-09 00:00:00 Completed [facility] Td 2017-06-09 00:00:00 Completed [facility] Td 2017-06-09 00:00:00 Completed [facility] Td 2017-06-09 00:00:00 Completed [facility] Td 2017-06-09 00:00:00 Completed [facility] Td 2017-06-09 00:00:00 Completed [facility] Td 2017-06-09 00:00:00 Completed [facility] Td 2017-06-09 00:00:00 Completed [facility] Td 2017-06-09 00:00:00 Completed [facility] Td 2017-06-09 00:00:00 Completed [facility] Td 2017-06-09 00:00:00 Completed [facility] Td 2017-06-09 00:00:00 Completed [facility] Td 2017-06-09 00:00:00 Completed [facility] Td 2017-06-09 00:00:00 Completed [facility] TD, NOS 2017-06-09 00:00:00 Completed [facility] TD, NOS 2017-06-09 00:00:00 Completed [facility] TD, NOS 2017-06-09 00:00:00 Completed [facility] TD, NOS 2017-06-09 00:00:00 Completed [facility] TD, NOS 2017-06-09 00:00:00 Completed [facility] TD, NOS 2017-06-09 00:00:00 Completed [facility] TD, NOS 2017-06-09 00:00:00 Completed [facility] TD, NOS 2017-06-09 00:00:00 Completed [facility] TD, NOS 2017-06-09 00:00:00 Completed [facility] TD, NOS 2017-06-09 00:00:00 Completed [facility] TD, NOS Unknown Completed [facility] Pneumococcal Polysaccharide, PPSV23 (PNEUMOVAX) Unknown Completed [facility], NOS Unknown Completed [facility] Pneumococcal Polysaccharide, PPSV23 (PNEUMOVAX) Unknown Completed [facility] TD, NOS Unknown Completed [facility] Pneumococcal Polysaccharide, PPSV23 (PNEUMOVAX) Unknown Completed [facility] TD, NOS Unknown Completed [facility] Pneumococcal Polysaccharide, PPSV23 (PNEUMOVAX) Unknown Completed [facility] TD, NOS Unknown Completed [facility] Pneumococcal Polysaccharide, PPSV23 (PNEUMOVAX) Unknown Completed [facility] TD, NOS Unknown Completed [facility] Pneumococcal Polysaccharide, PPSV23 (PNEUMOVAX) Unknown [facility] TD, NOS Unknown Completed [facility] Pneumococcal Polysaccharide, PPSV23 (PNEUMOVAX) Unknown Completed [facility] TD, NOS Unknown Completed [facility] Pneumococcal Polysaccharide, PPSV23 (PNEUMOVAX) Unknown Completed [facility] TD, NOS Unknown Completed [facility] Pneumococcal Polysaccharide, PPSV23 (PNEUMOVAX) Unknown Completed [facility] TD, NOS Unknown Completed [facility] Pneumococcal Polysaccharide, PPSV23 (PNEUMOVAX) Unknown Completed [facility] TD, NOS Unknown Completed [facility] Pneumococcal Polysaccharide, PPSV23 (PNEUMOVAX) Unknown Completed [facility] TD, NOS Unknown Completed [facility] Pneumococcal Polysaccharide, PPSV23 (PNEUMOVAX) Unknown Completed [facility] TD, NOS Unknown Completed [facility] Pneumococcal Polysaccharide, PPSV23 (PNEUMOVAX) Unknown Completed [facility] TD, NOS Unknown Completed [facility] Pneumococcal Polysaccharide, PPSV23 (PNEUMOVAX) Unknown Completed [facility] TD, NOS Unknown Completed [facility] Pneumococcal Polysaccharide, PPSV23 (PNEUMOVAX) Unknown Completed [facility] TD, NOS Unknown Completed [facility] Pneumococcal Polysaccharide, PPSV23 (PNEUMOVAX) Unknown Completed [facility] TD, NOS Unknown Completed [facility] Pneumococcal Polysaccharide, PPSV23 (PNEUMOVAX) Unknown Completed [facility] TD, NOS Unknown Completed [facility] Pneumococcal Polysaccharide, PPSV23 (PNEUMOVAX) Unknown Completed [facility] TD, NOS Unknown Completed [facility] Pneumococcal Polysaccharide, PPSV23 (PNEUMOVAX) Unknown Completed [facility] TD, NOS Unknown Completed [facility] Pneumococcal Polysaccharide, PPSV23 (PNEUMOVAX) Unknown Completed [facility] TD, NOS Unknown Completed [facility] Pneumococcal Polysaccharide, PPSV23 (PNEUMOVAX) Unknown Completed [facility] TD, NOS Unknown Completed [facility] Pneumococcal Polysaccharide, PPSV23 (PNEUMOVAX) Unknown Completed [facility] TD, NOS Unknown Completed [facility] Pneumococcal Polysaccharide, PPSV23 (PNEUMOVAX) Unknown Completed [facility] TD, NOS Unknown Completed [facility] Pneumococcal Polysaccharide, PPSV23 (PNEUMOVAX) Unknown Completed [facility] TD, NOS Unknown Completed [facility] Pneumococcal Polysaccharide, PPSV23 (PNEUMOVAX) Unknown Completed [facility] TD, NOS Unknown Completed [facility] Pneumococcal Polysaccharide, PPSV23 (PNEUMOVAX) Unknown Completed [facility] TD, NOS Unknown Completed [facility] Pneumococcal Polysaccharide, PPSV23 (PNEUMOVAX) Unknown Completed [facility] TD, NOS Unknown Completed [facility] Pneumococcal Polysaccharide, PPSV23 (PNEUMOVAX) Unknown Completed [facility] TD, NOS Unknown Completed [facility] Pneumococcal Polysaccharide, PPSV23 (PNEUMOVAX) Unknown Completed [facility] TD, NOS Unknown Completed [facility] Pneumococcal Polysaccharide, PPSV23 (PNEUMOVAX) Unknown Completed [facility] TD, NOS Unknown Completed [facility] Pneumococcal Polysaccharide, PPSV23 (PNEUMOVAX) Unknown Completed [facility] TD, NOS Unknown Completed [facility] Pneumococcal Polysaccharide, PPSV23 (PNEUMOVAX) Unknown Completed [facility] TD, NOS Unknown Completed [facility] Pneumococcal Polysaccharide, PPSV23 (PNEUMOVAX) Unknown Completed [facility] TD, NOS Unknown Completed [facility] Pneumococcal Polysaccharide, PPSV23 (PNEUMOVAX) Unknown Completed [facility] TD, NOS Unknown Completed [facility] Pneumococcal Polysaccharide, PPSV23 (PNEUMOVAX) Unknown Completed [facility] TD, NOS Unknown Completed [facility] Pneumococcal Polysaccharide, PPSV23 (PNEUMOVAX) Unknown Completed [facility] TD, NOS Unknown Completed [facility] Pneumococcal Polysaccharide, PPSV23 (PNEUMOVAX) Unknown Completed [facility] TD, NOS Unknown Completed [facility] Pneumococcal Polysaccharide, PPSV23 (PNEUMOVAX) Unknown Completed [facility] TD, NOS Unknown Completed [facility] Pneumococcal Polysaccharide, PPSV23 (PNEUMOVAX) Unknown Completed [facility] TD, NOS Unknown Completed [facility] Pneumococcal Polysaccharide, PPSV23 (PNEUMOVAX) Unknown Completed [facility] TD, NOS Unknown Completed [facility] Pneumococcal Polysaccharide, PPSV23 (PNEUMOVAX) Unknown Completed [facility] TD, NOS Unknown Completed [facility] Pneumococcal Polysaccharide, PPSV23 (PNEUMOVAX) Unknown Completed [facility] TD, NOS Unknown Completed [facility] Pneumococcal Polysaccharide, PPSV23 (PNEUMOVAX) Unknown Completed [facility] TD, NOS Unknown Completed [facility] Pneumococcal Polysaccharide, PPSV23 (PNEUMOVAX) Unknown Completed [facility] TD, NOS Unknown Completed [facility] Pneumococcal Polysaccharide, PPSV23 (PNEUMOVAX) Unknown Completed [facility] Vital Signs Vital Name Observation Time Observation Value Comments S ource Systolic blood pressure 2024-08-03 00:23:00 144 mm[Hg] [facility] Diastolic blood pressure 2024-08-03 00:23:00 94 mm[Hg] [facility] Heart rate 2024-08-03 00:23:00 87 /min [facility] Body temperature 2024-08-03 00:23:00 36.67 Angle [facility] Respiratory rate 2024-08-03 00:23:00 16 /min [facility] Oxygen saturation in Arterial blood by Pulse oximetry 2024-08-03 00:23:00 100 /min [facility] Body height 2024-08-02 21:50:00 165.1 cm [facility] Body weight 2024-08-02 21:50:00 72.576 kg [facility] BMI 2024-08-02 21:50:00 26.63 kg/m2 [facility] Systolic blood pressure 2023-09-17 17:57:24 153 mm[Hg] [facility] Diastolic blood pressure 2023-09-17 17:57:24 88 mm[Hg] [facility] Heart rate 2023-09-17 17:57:24 80 /min [facility] Body temperature 2023-09-17 17:57:24 36.5 Angle [facility] Respiratory rate 2023-09-17 17:57:24 18 /min [facility] Oxygen saturation in Arterial blood by Pulse oximetry 2023-09-17 17:57:24 100 /min [facility] Body height 2023-09-17 15:52:00 165.1 cm [facility] Body weight 2023-09-17 15:52:00 72.576 kg [facility] BMI 2023-09-17 15:52:00 26.63 kg/m2 [facility] Systolic blood pressure 2023-06-28 15:46:00 93 mm[Hg] [facility] Diastolic blood pressure 2023-06-28 15:46:00 65 mm[Hg] [facility] Heart rate 2023-06-28 15:46:00 85 /min [facility] Body temperature 2023-06-28 15:46:00 36.5 Angle [facility] Respiratory rate 2023-06-28 15:46:00 18 /min [facility] Body weight 2023-06-28 15:46:00 72.576 kg [facility] BMI 2023-06-28 15:46:00 23.63 kg/m2 [facility] Oxygen saturation in Arterial blood by Pulse oximetry 2023-06-28 15:46:00 99 /min [facility] Systolic blood pressure 2023-05-19 17:41:00 102 mm[Hg] [facility] Diastolic blood pressure 2023-05-19 17:41:00 69 mm[Hg] [facility] Heart rate 2023-05-19 17:41:00 96 /min [facility] Body temperature 2023-05-19 17:41:00 36.72 Angle [facility] Respiratory rate 2023-05-19 17:41:00 18 /min [facility] Body height 2023-05-19 17:41:00 175.3 cm [facility] Body weight 2023-05-19 17:41:00 71.668 kg [facility] BMI 2023-05-19 17:41:00 23.33 kg/m2 [facility] Oxygen saturation in Arterial blood by Pulse oximetry 2023-05-19 17:41:00 100 /min [facility] Body temperature 2023-02-14 14:55:00 36.28 Angle [facility] Body height 2023-02-14 14:55:00 [facility] 2023-02-14 14:55:00 71.668 kg [facility] 2023-02-14 14:55:00 26.29 kg/m2 [facility] Systolic blood pressure 2023-01-25 16:39:00 96 mm[Hg] [facility] Diastolic blood pressure 2023-01-25 16:39:00 56 mm[Hg] [facility] Heart rate 2023-01-25 16:39:00 63 /min [facility] Body temperature 2023-01-25 16:37:00 35.89 Angle [facility] Respiratory rate 2023-01-25 16:37:00 18 /min [facility] Oxygen saturation in Arterial blood by Pulse oximetry 2023-01-25 16:37:00 95 /min [facility] Body height 2023-01-25 02:08:00 165.1 cm [facility] Body weight 2023-01-25 02:08:00 71.668 kg [facility] BMI 2023-01-25 02:08:00 26.29 kg/m2 [facility] Systolic blood pressure 2023-01-21 12:50:00 196 mm[Hg] [facility] Diastolic blood pressure 2023-01-21 12:50:00 103 mm[Hg] [facility] Heart rate 2023-01-21 12:50:00 89 /min [facility] Body temperature 2023-01-21 12:50:00 36.28 Angle [facility] Respiratory rate 2023-01-21 12:50:00 18 /min [facility] Body height 2023-01-21 12:50:00 165.1 cm [facility] Body weight 2023-01-21 12:50:00 72.576 kg [facility] BMI 2023-01-21 12:50:00 26.63 kg/m2 [facility] Oxygen saturation in Arterial blood by Pulse oximetry 2023-01-21 12:50:00 99 /min [facility] Systolic blood pressure 2022-12-20 13:23:00 136 mm[Hg] [facility] Diastolic blood pressure 2022-12-20 13:23:00 70 mm[Hg] [facility] Heart rate 2022-12-20 13:23:00 68 /min [facility] Body temperature 2022-12-20 13:23:00 36.61 Angle [facility] Respiratory rate 2022-12-20 13:23:00 20 /min [facility] Oxygen saturation in Arterial blood by Pulse oximetry 2022-12-20 13:23:00 95 /min [facility] Body height 2022-12-18 21:13:00 165.1 cm [facility] Body weight 2022-12-18 21:13:00 72.576 kg [facility] BMI 2022-12-18 21:13:00 26.63 kg/m2 [facility] Systolic blood pressure 2022-12-13 17:42:00 148 mm[Hg] [facility] Diastolic blood pressure 2022-12-13 17:42:00 83 mm[Hg] [facility] Heart rate 2022-12-13 17:42:00 69 /min [facility] Body temperature 2022-12-13 17:42:00 36.67 Angle [facility] Respiratory rate 2022-12-13 17:42:00 18 /min [facility] Oxygen saturation in Arterial blood by Pulse oximetry 2022-12-13 17:42:00 98 /min [facility] Body height 2022-12-08 18:07:00 165.1 cm [facility] Body weight 2022-12-08 18:07:00 72.576 kg [facility] BMI 2022-12-08 18:07:00 26.63 kg/m2 [facility] Heart rate 2022-12-13 00:52:00 74 /min [facility] Respiratory rate 2022-12-13 00:52:00 15 /min [facility] Oxygen saturation in Arterial blood by Pulse oximetry 2022-12-13 00:52:00 96 /min [facility] Systolic blood pressure 2022-12-13 00:49:00 121 mm[Hg] [facility] Diastolic blood pressure 2022-12-13 00:49:00 70 mm[Hg] [facility] Body temperature 2022-12-12 21:17:00 36.61 Angle [facility] Body height 2022-12-08 18:07:00 165.1 cm [facility] Body weight 2022-12-08 18:07:00 72.576 kg [facility] BMI 2022-12-08 18:07:00 26.63 kg/m2 [facility] Systolic blood pressure 2022-12-02 00:00:00 145 mm[Hg] [facility] Diastolic blood pressure 2022-12-02 00:00:00 82 mm[Hg] [facility] Heart rate 2022-12-02 00:00:00 74 /min [facility] Respiratory rate 2022-12-02 00:00:00 16 /min [facility] Oxygen saturation in Arterial blood by Pulse oximetry 2022-12-02 00:00:00 97 /min [facility] Body temperature 2022-12-01 21:08:00 37.72 Angle [facility] Body height 2022-12-01 21:08:00 165.1 cm [facility] Body weight 2022-12-01 21:08:00 72.576 kg [facility] BMI 2022-12-01 21:08:00 26.63 kg/m2 [facility] Systolic blood pressure 2022-09-06 16:30:00 114 mm[Hg] [facility] Diastolic blood pressure 2022-09-06 16:30:00 69 mm[Hg] [facility] Heart rate 2022-09-06 16:30:00 75 /min [facility] Body temperature 2022-09-06 16:30:00 36.39 Angle [facility] Oxygen saturation in Arterial blood by Pulse oximetry 2022-09-06 16:30:00 95 /min [facility] Respiratory rate 2022-09-06 10:00:00 23 /min [facility] Body weight 2022-09-06 10:00:00 71.986 kg [facility] BMI 2022-09-06 10:00:00 26.41 kg/m2 [facility] Body height 2022-09-02 10:25:00 165.1 cm [facility] Systolic blood pressure 2022-08-30 03:47:00 101 mm[Hg] [facility] Diastolic blood pressure 2022-08-30 03:47:00 70 mm[Hg] [facility] Heart rate 2022-08-30 03:47:00 93 /min [facility] Body temperature 2022-08-30 03:47:00 37.39 Angle [facility] Respiratory rate 2022-08-30 03:47:00 18 /min [facility] Body height 2022-08-30 03:47:00 165.1 cm [facility] Body weight 2022-08-30 03:47:00 72.576 kg [facility] BMI 2022-08-30 03:47:00 26.63 kg/m2 [facility] Oxygen saturation in Arterial blood by Pulse oximetry 2022-08-30 03:47:00 99 /min [facility] Systolic blood pressure 2022-06-21 03:00:00 150 mm[Hg] [facility] Diastolic blood pressure 2022-06-21 03:00:00 77 mm[Hg] [facility] Heart rate 2022-06-21 03:00:00 72 /min [facility] Respiratory rate 2022-06-21 03:00:00 19 /min [facility] Oxygen saturation in Arterial blood by Pulse oximetry 2022-06-21 03:00:00 95 /min [facility] Body temperature 2022-06-20 23:51:00 36.67 Angle [facility] Body weight 2022-06-20 23:51:00 72.576 kg [facility] BMI 2022-06-20 23:51:00 26.63 kg/m2 [facility] Systolic blood pressure 2022-02-22 16:07:00 127 mm[Hg] [facility] Diastolic blood pressure 2022-02-22 16:07:00 82 mm[Hg] [facility] Heart rate 2022-02-22 16:07:00 79 /min [facility] Body temperature 2022-02-22 16:07:00 36.11 [place] [facility] Respiratory rate 2022-02-22 16:07:00 18 /min [facility] Oxygen saturation in Arterial blood by Pulse oximetry 2022-02-22 16:07:00 98 /min [facility] Body weight 2022-02-22 08:44:00 72.984 kg [facility] BMI 2022-02-22 08:44:00 26.78 kg/m2 [facility] Body height 2022-02-20 20:15:00 165.1 cm [facility] Systolic blood pressure 2020-10-14 22:00:00 125 mm[Hg] [facility] Diastolic blood pressure 2020-10-14 22:00:00 71 mm[Hg] [facility] Heart rate 2020-10-14 22:00:00 77 /min [facility] Body temperature 2020-10-14 22:00:00 36.28 Angle [facility] Respiratory rate 2020-10-14 22:00:00 20 /min [facility] Oxygen saturation in Arterial blood by Pulse oximetry 2020-10-14 22:00:00 99 /min [facility] Body weight 2020-10-13 09:11:00 70.489 kg [facility] BMI 2020-10-13 09:11:00 25.86 kg/m2 [facility] Body height 2020-10-12 20:25:00 165.1 cm [facility] Systolic blood pressure 2020-10-14 22:00:00 125 mm[Hg] [facility] Diastolic blood pressure 2020-10-14 22:00:00 71 mm[Hg] [facility] Heart rate 2020-10-14 22:00:00 77 /min [facility] Body temperature 2020-10-14 22:00:00 36.28 Angle [facility] Respiratory rate 2020-10-14 22:00:00 20 /min [facility] Oxygen saturation in Arterial blood by Pulse oximetry 2020-10-14 22:00:00 99 /min [facility] Body weight 2020-10-13 09:11:00 70.489 kg [facility] BMI 2020-10-13 09:11:00 25.86 kg/m2 [facility] Body height 2020-10-12 20:25:00 165.1 cm [facility] Systolic blood pressure 2020-06-25 19:12:00 104 mm[Hg] [facility] Diastolic blood pressure 2020-06-25 19:12:00 91 mm[Hg] [facility] Heart rate 2020-06-25 19:12:00 85 /min [facility] Body temperature 2020-06-25 19:12:00 36.06 Angle [facility] Respiratory rate 2020-06-25 19:12:00 20 /min [facility] Body weight 2020-06-25 19:12:00 74.844 kg [facility] BMI 2020-06-25 19:12:00 27.46 kg/m2 [facility] Oxygen saturation in Arterial blood by Pulse oximetry 2020-06-25 19:12:00 99 /min [facility] Systolic blood pressure 2020-06-25 19:12:00 104 mm[Hg] [facility] Diastolic blood pressure 2020-06-25 19:12:00 91 mm[Hg] [facility] Heart rate 2020-06-25 19:12:00 85 /min [facility] Body temperature 2020-06-25 19:12:00 36.06 Angle [facility] Respiratory rate 2020-06-25 19:12:00 20 /min [facility] Body weight 2020-06-25 19:12:00 74.844 kg [facility] BMI 2020-06-25 19:12:00 27.46 kg/m2 [facility] Oxygen saturation in Arterial blood by Pulse oximetry 2020-06-25 19:12:00 99 /min [facility] BP Systolic 2022-07-30 16:39:00 107 mm[Hg] BP [...] POCT GLUCOSE (AUTOMATED) 2023-09-17 17:33:00 Zahraa Springer [facility] ASSIGNMENT OF BENEFITS 2023-09-17 16:40:07 Docto r Unassigned, [place] [facility] CONSENT/REFUSAL FOR DIAGNOSIS AND TREATMENT 2023-09-17 15:24:49 Doctor Unassigned, [place] [facility] ASSIGNMENT OF BENEFITS 2023-06-28 17:27:44 Docto r Unassigned, [place] [facility] CONSENT/REFUSAL FOR DIAGNOSIS AND TREATMENT 2023-06-28 15:26:13 Doctor Unassigned, [place] [facility] ASSIGNMENT OF BENEFITS 2023-05-19 18:58:31 Docto r Unassigned, [place] [facility] CONSENT/REFUSAL FOR DIAGNOSIS AND TREATMENT 2023-05-19 17:32:17 Doctor Unassigned, [place] [facility] ASSIGNMENT OF BENEFITS 2023-02-14 14:43:47 Docto r Unassigned, [place] [facility] POCT GLUCOSE (AUTOMATED) 2023-01-25 16:40:00 Elieser Winslow [facility] POCT GLUCOSE (AUTOMATED) 2023-01-25 12:45:00 Elieser Winslow [facility] MAGNESIUM 2023-01-25 10:12:00 Kristian Castillo [facility] BASIC METABOLIC PANEL (NA, K, CL, CO2, GLUCOSE, BUN, CREATININE, CA) 2023-01-25 10:12:00 Kristian Castillo [facility] CBC WITH DIFF 2023-01-25 10:12:00 Kristian Castillo [facility] POCT GLUCOSE (AUTOMATED) 2023-01-25 02:09:00 Elieser Winslow [facility] POCT GLUCOSE (AUTOMATED) 2023-01-24 22:19:00 Irwin Dunlap [facility] SEDIMENTATION RATE 2023-01-24 17:49:00 Tamera Alcala [facility] POCT GLUCOSE (AUTOMATED) 2023-01-24 16:44:00 Irwin Dunlap [facility] [facility] POCT GLUCOSE (AUTOMATED) 2023-01-24 12:33:00 Irwin Dunlap [facility] POCT GLUCOSE (AUTOMATED) 2023-01-24 01:57:00 Irwin Dunlap [facility] POCT GLUCOSE (AUTOMATED) 2023-01-23 21:34:00 Irwin Dunlap [facility] POCT GLUCOSE (AUTOMATED) 2023-01-23 16:49:00 Irwin Dunlap [facility] MR BRAIN WO CONTRAST 2023-01-23 15:00:00 Olga Fuentes [facility] MR ORBIT W WO CONTRAST 2023-01-23 15:00:00 GadelmoJordan harris [facility] POCT GLUCOSE (AUTOMATED) 2023-01-23 12:03:00 Irwin Dunlap [facility] BASIC METABOLIC PANEL (NA, K, CL, CO2, GLUCOSE, BUN, CREATININE, CA) 2023-01-23 09:05:00 [facility] LIPID PANEL (67754)(TOTAL CHOLESTEROL, TRIGLYCERIDES, HDL) 2023-01-23 09:05:00 [facility] CBC WITH DIFF 2023-01-23 09:05:00 Tamera Alcala [facility] GLYCOSYLATED HEMOGLOBIN (A1C) 2023-01-23 09:05:00 [facility] POCT GLUCOSE (AUTOMATED) 2023-01-23 01:59:00 Fabi [facility] CT ANGIOGRAM HEAD 2023-01-22 22:45:49 Olena Fuentes [facility] CT ANGIOGRAM NECK 2023-01-22 22:45:49 Olena Fuentes [facility] POCT GLUCOSE (AUTOMATED) 2023-01-22 22:14:00 Fabi [facility] TRANSTHORACIC ECHO (TTE) LIMITED W/ CONTRAST 2023-01-22 20:18:00 [facility] 2023-01-22 16:12[facility]23-01-22 16:12[facility] 2023-01-22 12:13:00 [facility] 2023-01-22 12:13:00 [facility] 2023-01-22 01:30:00 [facility] 2023-01-22 01:30:00 [facility] 2023-01-21 22:07:00 [facility] 2023-01-21 22:07:00 Irwin Dunlap [facility] RAVI MULTI LEVEL - BY VASCULAR LAB 2023-01-21 19:26:00 Martha Sharp [facility] RAVI MULTI LEVEL - BY VASCULAR LAB 2023-01-21 19:26:00 Payton [facility] POCT GLUCOSE (AUTOMATED) 2023-01-21 17:11:00 Irwin Dunlap [facility] POCT GLUCOSE (AUTOMATED) 2023-01-21 17:11:00 Irwin Dunlap [facility] XR FOOT <3 VW RIGHT 2023-01-21 14:38:14 Payton [facility] vijaya [facility] XR FOOT <3 VW RIGHT 2023-01-21 14:38:14 Payton [facility] TISSUE CULTURE(AEROBIC/ANAEROB IC) 2023-01-21 13:50:00 Payton [facility] TISSUE CULTURE(AEROBIC/ANAEROB IC) 2023-01-21 13:50:00 Payton [facility] SURGICAL PATHOLOGY EXAM 2023-01-21 13:50:00 [facility] TISSUE CULTURE(AEROBIC/ANAEROB IC) 2023-01-21 13:49:00 Payton [facility] TISSUE CULTURE(AEROBIC/ANAEROB IC) 2023-01-21 13:49:00 Payton [facility] INCISION AND DRAINAGE OF ABSCESS 2023-01-21 13:02:00 Payton [facility] FOOT DEBRIDEMENT 2023-01-21 13:02:00 Payton [facility] INCISION AND DRAINAGE OF ABSCESS 2023-01-21 13:02:00 Payton [facility] FOOT DEBRIDEMENT 2023-01-21 13:02:00 Payton [facility] POCT GLUCOSE (AUTOMATED) 2023-01-21 12:14:00 [facility] POCT GLUCOSE (AUTOMATED) 2023-01-21 12:14:00 [facility] PHOSPHORUS 2023-01-21 09:33:00 Fermin Hernandez [facility] MAGNESIUM 2023-01-21 09:33:00 Mary [facility] BASIC METABOLIC PANEL (NA, K, CL, CO2, GLUCOSE, BUN, CREATININE, CA) 2023-01-21 09:33:00 [facility] CBC WITH DIFF 2023-01-21 09:33:00 [facility] PHOSPHORUS 2023-01-21 09:33:00 Mougnela [facility] MAGNESIUM 2023-01-21 09:33:00 Moalexandre [facility] BASIC METABOLIC PANEL (NA, K, CL, CO2, GLUCOSE, BUN, CREATININE, CA) 2023-01-21 09:33:00 [facility] CBC WITH DIFF 2023-01-21 09:33:00 [facility] POCT GLUCOSE (AUTOMATED) 2023-01-21 01:36:00 [facility] POCT GLUCOSE (AUTOMATED) 2023-01-21 01:36:00 [facility] POCT GLUCOSE (AUTOMATED) 2023-01-20 21:40:00 [facility] POCT GLUCOSE (AUTOMATED) 2023-01-20 21:40:00 [facility] CLOSTRIDIUM DIFFICILE TOXIN 2023-01-20 19:19:00 Anyi [facility] CLOSTRIDIUM DIFFICILE TOXIN 2023-01-20 19:19:00 Anyi [facility] POCT GLUCOSE (AUTOMATED) 2023-01-20 16:54:00 [facility] POCT GLUCOSE (AUTOMATED) 2023-01-20 16:54:00 [facility] POCT GLUCOSE (AUTOMATED) 2023-01-20 12:45:00 [facility] POCT GLUCOSE (AUTOMATED) 2023-01-20 12:45:00 [facility] PHOSPHORUS 2023-01-20 08:58:00 [facility] MAGNESIUM 2023-01-20 08:58:00 Moalexandre [facility] BASIC METABOLIC PANEL (NA, K, CL, CO2, GLUCOSE, BUN, CREATININE, CA) 2023-01-20 08:58:00 [facility] CBC WITH DIFF 2023-01-20 08:58:00 [facility] PHOSPHORUS 2023-01-20 08:58:00 [facility] MAGNESIUM 2023-01-20 08:58:00 Moalexandre [facility] BASIC METABOLIC PANEL (NA, K, CL, CO2, GLUCOSE, BUN, CREATININE, CA) 2023-01-20 08:58:00 [facility] CBC WITH DIFF 2023-01-20 08:58:00 [facility] POCT GLUCOSE (AUTOMATED) 2023-01-20 01:49:00 [facility] POCT GLUCOSE (AUTOMATED) 2023-01-20 01:49:00 [facility] POCT GLUCOSE (AUTOMATED) 2023-01-19 22:55:00 Minugnela [facility] POCT GLUCOSE (AUTOMATED) 2023-01-19 22:55:00 [facility] MR FOOT RIGHT W WO CONTRAST 2023-01-19 22:43:37 Mougouris, [facility] MR FOOT RIGHT W WO CONTRAST 2023-01-19 22:43:37 Mougnela [facility] POCT GLUCOSE (AUTOMATED) 2023-01-19 16:44:00 [facility] ([facility]OMATED) 2023-01-19 16:44:00 Hammo Barazi, [facility] POCT GLUCOSE (AUTOMATED) 2023-01-19 12:39:00 Janelle Hill [facility] POCT GLUCOSE (AUTOMATED) 2023-01-19 12:39:00 Janelle Hill [facility] CBC WITH DIFF 2023-01-19 09:07:00 Fermin Hernandez [facility] CBC WITH DIFF 2023-01-19 09:07:00 Moalexandre [facility] PHOSPHORUS 2023-01-19 09:06:00 [facility] MAGNESIUM 2023-01-19 09:06:00 [facility] BASIC METABOLIC PANEL (NA, K, CL, CO2, GLUCOSE, BUN, CREATININE, CA) 2023-01-19 09:06:00 [facility] PHOSPHORUS 2023-01-19 09:06:00 [facility] MAG[facility]IUM 2023-01-19 09:06:00 Moalexandre [facility] BASIC METABOLIC PANEL (NA, K, CL, CO2, GLUCOSE, BUN, CREATININE, CA) 2023-01-19 09:06:00 [facility] POCT GLUCOSE (AUTOMATED) 2023-01-19 01:21:00 Janelle Hill [facility] POCT GLUCOSE (AUTOMATED) 2023-01-19 01:21:00 Janelle Hill [facility] POCT GLUCOSE (AUTOMATED) 2023-01-18 21:49:00 Janelle Hill [facility] POCT GLUCOSE (AUTOMATED) 2023-01-18 21:49:00 Janelle Hill [facility] POCT GLUCOSE (AUTOMATED) 2023-01-18 17:37:00 Janelle Hill [facility] POCT GLUCOSE (AUTOMATED) 2023-01-18 17:37:00 Janelle Hill [facility] POCT GLUCOSE (AUTOMATED) 2023-01-18 13:11:00 Janelle Hill [facility] POCT GLUCOSE (AUTOMATED) 2023-01-18 13:11:00 Janelle Hill [facility] C-REACTIVE PROTEIN 2023-01-18 10:22:00 Haseeb Hinton [facility] SEDIMENTATION RATE 2023-01-18 10:22:00 Haseeb Hinton [facility] C-REACTIVE PROTEIN 2023-01-18 10:22:00 Haseeb Hinton [facility] SEDIMENTATION RATE 2023-01-18 10:22:00 Haseeb Hinton [facility] POCT GLUCOSE (AUTOMATED) 2023-01-18 02:13:00 Janelle Hill [facility] POCT GLUCOSE (AUTOMATED) 2023-01-18 02:13:00 Janelle Hill [facility] POCT GLUCOSE (AUTOMATED) 2023-01-17 22:22:00 Janelle Hill [facility] POCT GLUCOSE (AUTOMATED) 2023-01-17 22:22:00 Janelle Hill [facility] MRSA / MSSA SCREEN BY PCRAGA 2023-01-17 20:10:00 Luiza Esquivel [facility] MRSA / MSSA SCREEN BY PCR, AGA 2023-01-17 20:10:00 Luiza Esquivel [facility] POCT GLUCOSE (AUTOMATED) 2023-01-17 16:45:00 Janelle Hill [facility] POCT GLUCOSE (AUTOMATED) 2023-01-17 16:45:00 Janelle Hill [facility] POCT GLUCOSE (AUTOMATED) 2023-01-17 13:30:00 Janelle Hill [facility] POCT GLUCOSE (AUTOMATED) 2023-01-17 13:30:00 Janelle Hill [facility] BASIC METABOLIC PANEL (NA, K, CL, CO2, GLUCOSE, BUN, CREATININE, CA) 2023-01-17 10:15:00 Janelle Hill [facility] CBC WITH DIFF 2023-01-17 10:15:00 Narcisa Hinton [facility] BASIC METABOLIC PANEL (NA, K, CL, CO2, GLUCOSE, BUN, CREATININE, CA) 2023-01-17 10:15:00 Janelle Hill [facility] CBC WITH DIFF 2023-01-17 10:15:00 Narcisa Hinton [facility] POCT GLUCOSE (AUTOMATED) 2023-01-17 05:08:00 Levi Brown [facility] POCT GLUCOSE (AUTOMATED) 2023-01-17 05:08:00 Levi Brown [facility] XR FOOT <3 VW RIGHT 2023-01-17 02:11:00 Levi Brown [facility] XR FOOT <3 VW RIGHT 2023-01-17 02:11:00 Levi Brown [facility] BLOOD CULTURE SCREEN 2023-01-17 01:51:00 Thomas Brown i [facility] BASIC METABOLIC PANEL (NA, K, CL, CO2, GLUCOSE, BUN, CREATININE, CA) 2023-01-17 01:51:00 Levi Brown [facility] CBC WITH DIFF 2023-01-17 01:51:00 Levi Brown [facility] BLOOD CULTURE SCREEN 2023-01-17 01:51:00 Thomas Brown i [facility] BASIC METABOLIC PANEL (NA, K, CL, CO2, GLUCOSE, BUN, CREATININE, CA) 2023-01-17 01:51:00 Levi Brown [facility] CBC WITH DIFF 2023-01-17 01:51:00 Levi Brown [facility] NOTICE OF PRIVACY PRACTICES 2023-01-17 00:20:01 Doctor Unassigned, [place] [facility] NOTICE OF PRIVACY PRACTICES 2023-01-17 00:20:01 Doctor Unassigned, [place] [facility] CONSENT/REFUSAL FOR DIAGNOSIS AND TREATMENT 2023-01-17 00:19:22 Doctor Unassigned, [place] [facility] HOSPITAL ADMISSION 2023-01-16 05:01:00 Doctor Un assigned, [place] [facility] HOSPITAL ADMISSION 2023-01-16 05:01:00 Doctor Un assigned, [place] [facility] POCT GLUCOSE (AUTOMATED) 2022-12-20 13:25:00 [facility] COMP. METABOLIC PANEL ([id number]) 2022-12-20 10:19:00 [facility] POCT GLUCOSE (AUTOMATED) 2022-12-20 02:58:00 [facility] POCT GLUCOSE (AUTOMATED) 2022-12-19 21:14:00 Christopher [facility] POCT GLUCOSE (AUTOMATED) 2022-12-19 17:21:00 Christopher [facility] POCT GLUCOSE (AUTOMATED) 2022-12-19 15:24:00 Christopher [facility] POCT GLUCOSE (AUTOMATED) 2022-12-19 13:48:00 Christopher [facility] POCT GLUCOSE (AUTOMATED) 2022-12-19 06:41:00 [facility] XR FOOT <3 VW RIGHT 2022-12-18 23:34:55 Jhonny Murray [facility] COMP. METABOLIC PANEL ([id number]) 2022-12-18 22:59:00 Barak Murray [facility] SEDIMENTATION RATE 2022-12-18 22:59:00 Singer Barak [facility] CBC WITH DIFF 2022-12-18 22:59:00 Barak Murray [facility] CONSENT/REFUSAL FOR DIAGNOSIS AND TREATMENT 2022-12-18 21:00:21 Doctor Unassigned, [place] [facility] HOSPITAL ADMISSION 2022-12-18 06:01:00 Doctor Un assigned, [place] [facility] POCT GLUCOSE (AUTOMATED) 2022-12-13 17:42:00 Trisha Foster [facility] POCT GLUCOSE (AUTOMATED) 2022-12-13 17:42:00 Cristian [facility] POCT GLUCOSE (AUTOMATED) 2022-12-13 13:46:00 Cristian [facility] POCT GLUCOSE (AUTOMATED) 2022-12-13 13:46:00 Cristian [facility] POCT GLUCOSE (AUTOMATED) 2022-12-13 03:19:00 Cristian [facility] POCT GLUCOSE (AUTOMATED) 2022-12-13 03:19:00 Cristian [facility] ASPIRATE OR ABSCESS CULTURE(AEROBIC/ANAEROB IC) 2022-12-13 00:26:00 Mendoza Lovett [facility] ASPIRATE OR ABSCESS CULTURE(AEROBIC/ANAEROB IC) 2022-12-13 00:26:00 Mendoza Lov[place] [facility] INCISION AND DRAINAGE LOWER EXTREMITY 2022-12-12 23:58:00 Mendoza Lovett [facility] INCISION AND DRAINAGE LOWER EXTREMITY 2022-12-12 23:58:00 Mendoza Lovett [facility] POCT GLUCOSE (AUTOMATED) 2022-12-12 18:12:00 Kevin Uriarte [facility] POCT GLUCOSE (AUTOMATED) 2022-12-12 18:12:00 Kevin Uriarte [facility] POCT GLUCOSE (AUTOMATED) 2022-12-12 13:41:00 Kevin Uriarte [facility] POCT GLUCOSE (AUTOMATED) 2022-12-12 13:41:00 Kevin Uriarte [facility] POCT GLUCOSE (AUTOMATED) 2022-12-12 02:36:00 Kevin Uriarte [facility] POCT GLUCOSE (AUTOMATED) 2022-12-12 02:36:00 Kevin Uriarte [facility] POCT GLUCOSE (AUTOMATED) 2022-12-11 22:46:00 Kevin Uriarte [facility] POCT GLUCOSE (AUTOMATED) 2022-12-11 22:46:00 Kevin Uriarte [facility] POCT GLUCOSE (AUTOMATED) 2022-12-11 17:56:00 Chap[facility] POCT GLUCOSE (AUTOMATED) 2022-12-11 17:56:00 [facility] POCT GLUCOSE (AUTOMATED) 2022-12-11 13:48:00 [facility] POCT GLUCOSE (AUTOMATED) 2022-12-11 13:48:00 [facility] BASIC METABOLIC PANEL (NA, K, CL, CO2, GLUCOSE, BUN, CREATININE, CA) 2022-12-11 09:27:00 Trisha Foster [facility] BASIC METABOLIC PANEL (NA, K, CL, CO2, GLUCOSE, BUN, CREATININE, CA) 2022-12-11 09:27:00 Cristian [facility] POCT GLUCOSE (AUTOMATED) 2022-12-11 03:02:00 [facility] POCT GLUCOSE (AUTOMATED) 2022-12-11 03:02:00 [facility] MR FOOT RIGHT W WO CONTRAST 2022-12-11 02:57:00 Munir [facility] MR FOOT RIGHT W WO CONTRAST 2022-12-11 02:57:00 Munir [facility] POCT GLUCOSE (AUTOMATED) 2022-12-10 23:20:00 [facility] POCT GLUCOSE (AUTOMATED) 2022-12-10 23:20:00 [facility] POCT GLUCOSE (AUTOMATED) 2022-12-10 21:34:00 [facility] POCT GLUCOSE (AUTOMATED) 2022-12-10 21:34:00 [facility] TRANSTHORACIC ECHO (TTE) COMPLETE 2022-12-10 19:49:00 Venancio [facility] TRANSTHORACIC ECHO (TTE) COMPLETE 2022-12-10 19:49:00 Venancio [facility] POCT GLUCOSE (AUTOMATED) 2022-12-10 18:42:00 [facility] POCT GLUCOSE (AUTOMATED) 2022-12-10 18:42:00 Kevin Uriarte [facility] MRSA / MSSA SCREEN BY PCR, [facility] 2022-12-10 16:18:00 Munir [facility] WOUND CULTURE 2022-12-10 [facility] 2022-12-10 16:18:00 Munir [facility] WOUND CULTURE 2022-12-10 16:18:00 Munir [facility] BLOOD CULTURE SCREEN 2022-12-10 10:41:00 Hao Craft I [facility] VANCOMYCIN TROUGH 2022-12-10 10:41:00 Jeramy Jacobs [facility] SEDIMENTATION RATE 2022-12-10 10:41:00 Hao Craft I [facility] GLYCOSYLATED HEMOGLOBIN (A1C) 2022-12-10 10:41:00 Jeramy Jacobs [facility] BLOOD CULTURE SCREEN 2022-12-10 10:41:00 Hao Craft I [facility] VANCOMYCIN TROUGH 2022-12-10 10:41:00 Jeramy Jacobs [facility] SEDIMENTATION RATE 2022-12-10 10:41:00 Hao Craft I [facility] GLYCOSYLATED HEMOGLOBIN (A1C) 2022-12-10 10:41:00 Jeramy Jacobs [facility] POCT GLUCOSE (AUTOMATED) 2022-12-10 02:32:00 [facility] POCT GLUCOSE (AUTOMATED) 2022-12-10 02:32:00 Chap[facility] POCT GLUCOSE (AUTOMATED) 2022-12-10 00:00:00 Chap[facility] POCT GLUCOSE (AUTOMATED) 2022-12-10 00:00:00 Chap[facility] POCT GLUCOSE (AUTOMATED) 2022-12-09 22:57:00 Kevin Uriarte [facility] POCT GLUCOSE (AUTOMATED) 2022-12-09 22:57:00 Chap[facility] POCT GLUCOSE (AUTOMATED) 2022-12-09 17:42:00 Chap[facility] POCT GLUCOSE (AUTOMATED) 2022-12-09 17:42:00 [facility] POCT GLUCOSE (AUTOMATED) 2022-12-09 14:03:00 [facility] POCT GLUCOSE (AUTOMATED) 2022-12-09 14:03:00 [facility] C-REACTIVE PROTEIN 2022-12-09 10:40:00 Hao Craft I [facility] BASIC METABOLIC PANEL (NA, K, CL, CO2, GLUCOSE, BUN, CREATININE, CA) 2022-12-09 10:40:00 Arlene [facility] CBC WITH DIFF 2022-12-09 10:40:00 Arlene Jeramy [facility] C-REACTIVE PROTEIN 2022-12-09 10:40:00 Hao Craft I [facility] BASIC METABOLIC PANEL (NA, K, CL, CO2, GLUCOSE, BUN, CREATININE, CA) 2022-12-09 10:40:00 Arlene [facility] CBC WITH DIFF 2022-12-09 10:40:00 Arlene Jeramy [facility] POCT GLUCOSE (AUTOMATED) 2022-12-09 02:31:00 [facility] POCT GLUCOSE (AUTOMATED) 2022-12-09 02:31:00 [facility] POCT GLUCOSE (AUTOMATED) 2022-12-08 23:09:00 Chap[facility] POCT GLUCOSE (AUTOMATED) 2022-12-08 23:09:00 Chap[facility] BASIC METABOLIC PANEL (NA, K, CL, CO2, GLUCOSE, BUN, CREATININE, CA) 2022-12-08 21:20:00 Chap[facility] BASIC METABOLIC PANEL (NA, K, CL, CO2, GLUCOSE, BUN, CREATININE, CA) 2022-12-08 21:20:00 Chapito [place] [facility] XR FOOT 3+ VW RIGHT 2022-12-08 19:56:10 [place] [facility] XR FOOT 3+ VW RIGHT 2022-12-08 19:56:10 Kevin Uriarte [facility] BLOOD CULTURE SCREEN 2022-12-08 19:47:00 Kevin Uriarte [facility] CBC WITH DIFF 2022-12-08 19:47:00 [facility] 2022-12-08 19:47:00 Chapito [place] [facility] BLOOD CULTURE WORKUP 2022-12-08 19:47:00 Kevin Uriarte [facility] GRAM POSITIVE BLOOD PATHOGENS DNA PROBE-ANAEROBIC 2022-12-08 19:47:00 Kevin Uriarte [facility] BLOOD CULTURE SCREEN 2022-12-08 19:47:00 Kevin Uriarte [facility] CBC WITH DIFF 2022-12-08 19:47:00 Kevin Uriarte [facility] BLOOD CULTURE WORKUP 2022-12-08 19:47:00 Kevin Uriarte [facility] BLOOD CULTURE WORKUP 2022-12-08 19:47:00 Kevin Uriarte [facility] GRAM POSITIVE BLOOD PATHOGENS DNA PROBE-ANAEROBIC 2022-12-08 19:47:00 Kevin Uriarte [facility] POCT GLUCOSE (AUTOMATED) 2022-12-08 19:39:00 Kevin Uriarte [facility] POCT GLUCOSE (AUTOMATED) 2022-12-08 19:39:00 Kevin Uriarte [facility] HOSPITAL ADMISSION 2022-12-08 06:01:00 Doctor Un assigned, [place] [facility] HOSPITAL ADMISSION 2022-12-08 06:01:00 Doctor Un assigned, [place] [facility] CT ABDOMEN PELVIS W CONTRAST 2022-12-01 23:53:53 Gil Mason [facility] LACTIC ACID WHOLE BLOOD 2022-12-01 23:00:00 Do elton Mason [facility] XR CHEST 1 VW 2022-12-01 22:43:57 Gil Mason [facility] URINALYSIS 2022-12-01 21:41:00 Gil Mason [facility] COVID-19 (ID NOW RAPID TESTING) 2022-12-01 21:40:00 Gil Mason [facility] URINE DRUG (IMMUNOASSAY) - COMPREHENSIVE DRUG SCREEN W/O REFLEX 2022-12-01 21:40:00 Gil Mason [facility] COMP. METABOLIC PANEL ([id number]) 2022-12-01 21:40:00 Gil Mason [facility] ETHANOL 2022-12-01 21:40:00 Gil Mason [facility] CBC WITH DIFF 2022-12-01 21:40:00 Gil Mason [facility] RAPID INFLUENZA A/B 2022-12-01 21:40:00 Pk Mason [facility] CONSENT/REFUSAL FOR DIAGNOSIS AND TREATMENT 2022-12-01 21:00:14 Doctor Unassigned, [place] [facility] CONSENT FOR FREE TREATMENT FORM 2022-10-17 14:25:07 Doctor Unassigned, [place] [facility] POCT GLUCOSE (AUTOMATED) 2022-09-06 16:27:00 Levi Brown [facility] POCT GLUCOSE (AUTOMATED) 2022-09-06 12:23:00 Levi Brown [facility] POCT GLUCOSE (AUTOMATED) 2022-09-05 21:23:00 Levi Brown [facility] POCT GLUCOSE (AUTOMATED) 2022-09-05 16:17:00 Levi Brown [facility] POCT GLUCOSE (AUTOMATED) 2022-09-05 12:37:00 Levi Brown [facility] CBC WITHOUT DIFF 2022-09-05 11:29:00 [facility]IC PANEL (NA, K, CL, CO2, GLUCOSE, BUN, CREATININE, CA) 2022-09-05 09:05:00 Kori Ruff [facility] POCT GLUCOSE (AUTOMATED) 2022-09-05 01:07:00 Levi Brown [facility] POCT GLUCOSE (AUTOMATED) 2022-09-04 21:23[facility]00 [facility] 2022-09-04 17:03:00 [facility] FOOT RIGHT W WO CONTRAST 2022-09-04 16:51:00 Jai Lindsey [facility] POCT GLUCOSE (AUTOMATED) 2022-09-04 12:47:00 [facility] BASIC METABOLIC PANEL (NA, K, CL, CO2, GLUCOSE, BUN, CREATININE, CA) 2022-09-04 10:05:00 Darryl Peoples [facility] CBC WITH DIFF 2022-09-04 10:05:00 Darryl Peoples [facility] POCT GLUCOSE (AUTOMATED) 2022-09-04 07:21:00 Levi Brown [facility] POCT GLUCOSE (AUTOMATED) 2022-09-04 01:25:00 Levi Brown [facility] VANCOMYCIN TROUGH 2022-09-03 22:32:00 Akhil Rowe [facility] POCT GLUCOSE (AUTOMATED) 2022-09-03 21:52:00 Kevin [facility] PROTHROMBIN TIME / INR 2022-09-03 18:05:00 Andres Rowe [facility] POCT GLUCOSE (AUTOMATED) 2022-09-03 16:42:00 [facility] DUPLEX ARTERIAL LEG RIGHT - BY VASCULAR LAB 2022-09-03 14:17:00 Jai [facility] POCT GLUCOSE (AUTOMATED) 2022-09-03 13:15:00 Levi Brown [facility] MAGNESIUM 2022-09-03 11:41:00 Akhil Rowe [facility] COMP. METABOLIC PANEL (25385) 2022-09-03 11:41:00 Akhil Rowe [facility] CBC WITH DIFF 2022-09-03 11:41:00 Akhil Rowe [facility] POCT GLUCOSE (AUTOMATED) 2022-09-03 07:37:00 Levi Brown [facility] POCT GLUCOSE (AUTOMATED) 2022-09-03 01:34:00 Levi Brown [facility] POCT GLUCOSE (AUTOMATED) 2022-09-02 21:15:00 Levi Brown [facility] POCT GLUCOSE (AUTOMATED) 2022-09-02 17:39:00 Levi Brown [facility] POCT GLUCOSE (AUTOMATED) 2022-09-02 16:50:00 Levi Brown [facility] POCT GLUCOSE (AUTOMATED) 2022-09-02 16:48:00 Levi Brown [facility] POCT GLUCOSE (AUTOMATED) 2022-09-02 16:25:00 Levi Brown [facility] ASPIRATE OR ABSCESS CULTURE(AEROBIC/ANAEROB IC) 2022-09-02 15:21:00 Jai Lindsey [facility] WOUND/ASPIRATE OR ABSCESS CULTURE 2022-09-02 15:21:00 Jai Lindsey [facility] POCT GLUCOSE (AUTOMATED) 2022-09-02 12:42:00 Levi Brown [facility] CT FOOT RIGHT W CONTRAST 2022-09-02 12:16:50 Akhil Rowe [facility] XR FOOT 3+ VW RIGHT 2022-09-02 08:15:00 Levi Brown [facility] BLOOD CULTURE SCREEN 2022-09-02 07:59:00 Thomas Brown i [facility] BLOOD CULTURE SCREEN 2022-09-02 07:58:00 Thomas Brown i [facility] PHOSPHORUS 2022-09-02 07:58:00 Akhil Rowe [facility] URIC ACID 2022-09-02 07:58:00 Akhil Rowe [facility] MAGNESIUM 2022-09-02 07:58:00 Akhil Rowe [facility] FERRITIN SERUM 2022-09-02 07:58:00 Jory blake [facility] C-REACTIVE PROTEIN 2022-09-02 07:58:00 [facility] COMP. METABOLIC PANEL (30952) 2022-09-02 07:58:00 Levi Brown [facility] LIPID PANEL (60364)(TOTAL CHOLESTEROL, TRIGLYCERIDES, HDL) 2022-09-02 07:58:00 Jory blake [facility] IRON PANEL 2022-09-02 07:58:00 Akhil Rowe [facility] SEDIMENTATION RATE 2022-09-02 07:58:00 [facility] CBC WITH DIFF 2022-09-02 07:58:00 Levi Brown [facility] GLYCOSYLATED HEMOGLOBIN (A1C) 2022-09-02 07:58:00 [facility] N-TERMINAL PRO-BNP 2022-09-02 07:58:00 [facility] PROCALCITONIN 2022-09-02 07:58:00 Akhil Rowe [facility] CONSENT/REFUSAL FOR DIAGNOSIS AND TREATMENT 2022-09-02 06:56:02 Doctor Unassigned, [place] [facility] POCT GLUCOSE (AUTOMATED) 2022-08-30 04:25:00 Ligia Lee [facility] NOTICE OF PRIVACY PRACTICES 2022-08-30 03:41:26 Doctor Unassigned, [place] [facility] CONSENT/REFUSAL FOR DIAGNOSIS AND TREATMENT 2022-08-30 03:41:03 Doctor Unassigned, [place] [facility] XR FOOT 3+ VW RIGHT 2022-06-21 01:25:37 Jose Polanco [facility] LIPASE 2022-06-21 00:36:00 Aravind Polanco [facility] COMP. METABOLIC PANEL (02801) 2022-06-21 00:36:00 Aravind Polanco [facility] CBC WITH DIFF 2022-06-21 00:36:00 Aravind Polanco [facility] GLYCOSYLATED HEMOGLOBIN (A1C) 2022-06-21 00:36:00 Aravind Polanco [facility] COVID-19 (ID NOW RAPID TESTING) 2022-06-21 00:36:00 Aravind Polanco [facility] NOTICE OF PRIVACY PRACTICES 2022-06-20 23:42:28 Doctor Unassigned, [place] [facility] CONSENT/REFUSAL FOR DIAGNOSIS AND TREATMENT 2022-06-20 23:41:57 Doctor Unassigned, [place] [facility] POCT GLUCOSE (AUTOMATED) 2022-02-22 16:46:00 Akhil Rowe [facility] POCT GLUCOSE (AUTOMATED) 2022-02-22 12:41:00 Akhil Rowe [facility] BASIC METABOLIC PANEL (NA, K, CL, CO2, GLUCOSE, BUN, CREATININE, CA) 2022-02-22 09:17:00 Temo Kim [facility] CBC WITH DIFF 2022-02-22 09:17:00 Temo Kim [facility] POCT GLUCOSE (AUTOMATED) 2022-02-22 02:28:00 Akhil Rowe [facility] POCT GLUCOSE (AUTOMATED) 2022-02-21 21:55:00 Akhil Rowe [facility] POCT GLUCOSE (AUTOMATED) 2022-02-21 16:50:00 Darryl Peoples [facility] POCT GLUCOSE (AUTOMATED) 2022-02-21 13:09:00 Darryl Peoples [facility] PROTHROMBIN TIME / INR 2022-02-21 08:26:00 Andres Rowe [facility] VITAMIN D, 25-[place] 2022-02-21 08:26:00 [facility] 2022-02-21 08:26:00 Akhil Rowee [facility] PHOSPHORUS 2022-02-21 08:25:00 Jory, Adnan [facility] URIC ACID 2022-02-21 08:25:00 Jory blake [facility] MAGNESIUM 2022-02-21 08:25:00 Jory blake [facility] COMP. METABOLIC PANEL (18030) 2022-02-21 08:25:00 [facility] LIPID PANEL (27328)(TOTAL CHOLESTEROL, TRIGLYCERIDES, HDL) 2022-02-21 08:25:00 Jory blake [facility] CBC WITH DIFF 2022-02-21 08:25:00 Jory blake [facility] N-TERMINAL PRO-BNP 2022-02-21 08:25:00 [facility] POCT GLUCOSE (AUTOMATED) 2022-02-21 07:56:00 Richelle [facility] POCT GLUCOSE (AUTOMATED) 2022-02-21 04:08:00 Richelle [facility] POCT GLUCOSE (AUTOMATED) 2022-02-20 22:05:00 Richelle [facility] LACTIC ACID WHOLE BLOOD 2022-02-20 19:10:00 Vazquez Roach [facility] POCT GLUCOSE (AUTOMATED) 2022-02-20 18:57:00 Vazquez Roach [facility] POCT GLUCOSE (AUTOMATED) 2022-02-20 17:32:00 Vazquez Roach [facility] POCT GLUCOSE (AUTOMATED) 2022-02-20 17:23:00 Vazquez Roach [facility] URINE CULTURE 2022-02-20 16:32:00 Vazquez Roach [facility] LACTIC ACID WHOLE BLOOD 2022-02-20 16:23:00 Vazquez Roach [facility] BLOOD CULTURE SCREEN 2022-02-20 16:21:00 Romaine Roach [facility] VITAMIN B12, LEVEL 2022-02-20 16:21:00 Jory blake [facility] C-REACTIVE PROTEIN 2022-02-20 16:21:00 Vazquez Roach [facility] COMP. METABOLIC PANEL (97143) 2022-02-20 16:21:00 Vazquez Roach [facility] SEDIMENTATION RATE 2022-02-20 16:21:00 Vazquez Roach [facility] CBC WITH DIFF 2022-02-20 16:21:00 Vazquez Roach [facility] GLYCOSYLATED HEMOGLOBIN (A1C) 2022-02-20 16:21:00 Akhil Rowe [facility] URINALYSIS 2022-02-20 16:21:00 Vazquez Roach [facility] WOUND/ASPIRATE OR ABSCESS CULTURE 2022-02-20 16:21:00 Vazquez Roach [facility] WOUND CULTURE 2022-02-20 16:21:00 Vazquez Roach [facility] XR FOOT 3+ VW RIGHT 2022-02-20 16:14:57 Vazquez Roach [facility] BLOOD CULTURE SCREEN 2022-02-20 16:07:00 Romaine Roach [facility] POCT GLUCOSE (AUTOMATED) 2022-02-20 15:58:00 Vazquez Roach [facility] NOTICE OF PRIVACY PRACTICES 2022-02-20 15:47:03 Doctor Unassigned, [place] [facility] CONSENT/REFUSAL FOR DIAGNOSIS AND TREATMENT 2022-02-20 15:39:26 Doctor Unassigned, [place] [facility] REFERRAL- REQUEST/RESPONSE 2020-10-25 06:01:00 Doctor Unassigned, [place] [facility] POCT GLUCOSE (AUTOMATED) 2020-10-14 22:37:00 Dallas Perry [facility] POCT GLUCOSE (AUTOMATED) 2020-10-14 17:49:00 Dallas Perry [facility] VANCOMYCIN TROUGH 2020-10-14 17:22:00 Akhil Rowe [facility] POCT GLUCOSE (AUTOMATED) 2020-10-14 13:45:00 Dallas Perry [facility] MAGNESIUM 2020-10-14 12:18:00 Akhil Rowe [facility] COMP. METABOLIC PANEL (10681) 2020-10-14 12:18:00 Akhil Rowe [facility] CBC WITH DIFF 2020-10-14 12:18:00 Akhil Rowe [facility] N-TERMINAL PRO-BNP 2020-10-14 12:18:00 Jory blake [facility] POCT GLUCOSE (AUTOMATED) 2020-10-14 02:39:00 Dallas Perry [facility] POCT GLUCOSE (AUTOMATED) 2020-10-13 23:05:00 Dallas Perry [facility] POCT GLUCOSE (AUTOMATED) 2020-10-13 22:39:00 Dallas Perry [facility] POCT GLUCOSE (AUTOMATED) 2020-10-13 17:46[facility] LAB 2020-10-13 16:18:41 Vicky [facility] BILATERAL DUPLEX SCAN OF ARTERY BY VASCULAR LAB 2020-10-13 14:57:14 Vicky [facility] POCT GLUCOSE (AUTOMATED) 2020-10-13 13:49:00 Dallas Perry [facility] THYROID STIMULATING HORMONE 2020-10-13 12:32:00 [facility] BASIC METABOLIC PANEL (NA, K, CL, CO2, GLUCOSE, BUN, CREATININE, CA) 2020-10-13 12:32:00 Dallas Perry [facility] LIPID PANEL (17269)(TOTAL CHOLESTEROL, TRIGLYCERIDES, HDL) 2020-10-13 12:32:00 [facility] CBC WITH DIFF 2020-10-13 12:32:00 Dallas Perry [facility] N-TERMINAL PRO-BNP 2020-10-13 12:32:00 [facility] VITAMIN D, 25-OH 2020-10-13 12:32:00 Madeline Hernandez ra [facility] POCT GLUCOSE (AUTOMATED) 2020-10-13 01:30:00 Dallas Perry [facility] CT FOOT RIGHT W CONTRAST 2020-10-13 00:17:12 Dallas Perry [facility] BLOOD CULTURE SCREEN 2020-10-12 22:07:00 Rose De La Paz [facility] COMP. METABOLIC PANEL (89833) 2020-10-12 22:07:00 Rose De La Paz [facility] CBC WITH DIFF 2020-10-12 22:07:00 Rose De La Paz [facility] GLYCOSYLATED HEMOGLOBIN (A1C) 2020-10-12 22:07:00 Dallas Perry [facility] URINALYSIS 2020-10-12 22:07:00 Rose De La Paz [facility] COVID-19 (ID NOW RAPID TESTING) 2020-10-12 22:07:00 Rose De La Paz [facility] UNILATERAL VENOUS DUPLEX LOWER EXTREMITY BY VASCULAR LAB 2020-10-12 21:58:42 Rose De La Paz [facility] XR ANKLE 3+ VW RIGHT 2020-10-12 21:54:56 Rose De La Paz [facility] XR TOES 2 VW RIGHT 2020-10-12 21:54:56 Rose De La Paz [facility] BLOOD CULTURE SCREEN 2020-10-12 21:51:00 Rose De La Paz [facility] CONSENT/REFUSAL FOR DIAGNOSIS AND TREATMENT 2020-10-12 20:03:31 Doctor Unassigned, [place] [facility] CONSENT/REFUSAL FOR DIAGNOSIS AND TREATMENT 2020-06-25 19:02:46 Doctor Unassigned, [place] [facility] Plan of Care Planned Activity Planned Date Details Comments Source Goal Plan of Care Note [code = 09739-1] Goal Plan of Care Note [code = 90653-8] Goal Plan of Care Note [code = 04336-6] Goal Plan of Care Note [code = 55828-1] Goal Plan of Care Note [code = 52826-9] Goal Plan of Care Note [code = 27204-3] Goal Plan of Care Note [code = 24972-5] Goal Plan of Care Note [code = 42306-6] Goal Plan of Care Note [code = 88051-4] Goal Plan of Care Note [code = 05876-7] Goal Plan of Care Note [code = 18172-2] Goal Plan of Care Note [code = 46338-9] Goal Plan of Care Note [code = 84052-9] Goal Plan of Care Note [code = 10445-4] Goal Plan of Care Note [code = 94609-6] Goal Plan of Care Note [code = 82099-4] Goal Plan of Care Note [code = 63168-1] Goal Plan of Care Note [code = 55458-6] Goal Plan of Care Note [code = 93982-7] Goal Plan of Care Note [code = 73570-0] Goal Plan of Care Note [code = 67561-8] Goal Plan of Care Note [code = 02797-3] Goal Plan of Care Note [code = 67894-0] Goal Plan of Care Note [code = 00751-3] Goal Plan of Care Note [code = 62102-0] Goal Plan of Care Note [code = 35547-8] Goal Plan of Care Note [code = 75662-9] Goal Plan of Care Note [code = 02380-8] Goal Plan of Care Note [code = 28514-2] Goal Plan of Care Note [code = 18411-1] Goal Plan of Care Note [code = 59905-9] Goal Plan of Care Note [code = 37104-5] Goal Plan of Care Note [code = 66842-9] Goal Plan of Care Note [code = 75692-2] Goal Plan of Care Note [code = 07488-9] Goal Plan of Care Note [code = 54524-2] Goal Plan of Care Note [code = 69240-4] Goal Plan of Care Note [code = 24767-9] Goal Plan of Care Note [code = 98669-6] Goal Plan of Care Note [code = 90031-6] Goal Plan of Care Note [code = 02094-9] Goal Plan of Care Note [code = 94912-9] Goal Plan of Care Note [code = 87130-1] Goal Plan of Care Note [code = 07771-2] Goal Plan of Care Note [code = 40730-2] Goal Plan of Care Note [code = 21498-9] Goal Plan of Care Note [code = 19599-5] Goal Plan of Care Note [code = 93987-1] Goal Plan of Care Note [code = 68649-6] Goal Plan of Care Note [code = 35829-4] Goal Plan of Care Note [code = 78475-3] Goal Plan of Care Note [code = 14837-7] Goal Plan of Care Note [code = 18231-5] Goal Plan of Care Note [code = 33951-8] Goal Plan of Care Note [code = 98915-4] Goal Plan of Care Note [code = 61476-9] Goal Plan of Care Note [code = 78350-1] Goal Plan of Care Note [code = 46343-8] Goal Plan of Care Note [code = 17789-5] Goal Plan of Care Note [code = 90774-4] Goal Plan of Care Note [code = 66700-4] Goal Plan of Care Note [code = 09158-1] Goal Plan of Care Note [code = 09751-1] Goal Plan of Care Note [code = 50921-9] Goal Plan of Care Note [code = 89495-9] Goal Plan of Care Note [code = 65359-0] Goal Plan of Care Note [code = 83499-7] Goal Plan of Care Note [code = 48864-3] Goal Plan of Care Note [code = 05616-9] Goal Plan of Care Note [code = 96641-3] Goal Plan of Care Note [code = 02780-3] Goal Plan of Care Note [code = 53569-0] Goal Plan of Care Note [code = 61290-2] Goal Plan of Care Note [code = 69343-9] Encounters Start Date/Time End Date/Time Encounter Type Admission Type Attending [facility] Care Department Encounter ID Source 2024-08-02 16:52:00 2024-08-02 20:41:00 Emergency X CHAR NINO TASHA [facility] E[facility] [id number] [facility] 2024-08-02 16:52:00 2024-08-02 20:41:00 Emergency Char Nino AT [facility] 1.2.840.114 350.1.13.10 4.2.7.2.686 [id number] [facility] 2024-07-14 00:00:00 2024-07-14 15:03:00 Patient Outreach Simona Vincent [facility] [address] 1.2.840.114 350.1.13.10 4.2.7.2.686 [id number] 403 [id number] [facility] 2024-05-22 00:00:00 2024-05-22 15:21:01 Patient Outreach Simona Vincent 1.2.840.114 350.1.13.10 4.2.7.2.686 [id number] 403 [id number] [facility] 2024-04-30 00:00:00 2024-04-30 14:21:25 Patient Outreach Simona Vincent 1.2.840.114 350.1.13.10 4.2.7.2.686 [id number] 403 [id number] [facility] 2024-04-23 00:00:00 2024-04-23 16:43:22 Patient Outreach Simona Vincent 1.2.840.114 350.1.13.10 4.2.7.2.686 [id number] 403 [id number] [facility] 2024-04-09 00:00:00 2024-04-20 09:53:41 Patient Outreach Simona Vincent 1.2.840.114 350.1.13.10 4.2.7.2.686 [id number] 403 [id number] [facility] 2024-04-09 00:00:00 2024-04-09 10:14:57 Patient Outreach Simona Vincent 1.2.840.114 350.1.13.10 4.2.7.2.686 [id number] 403 [id number] [facility] 2024-03-31 00:00:00 2024-03-31 17:33:35 Patient Outreach Simona Vincent 1.2.840.114 350.1.13.10 4.2.7.2.686 [id number] 403 [id number] [facility] 2024-03-12 00:00:00 2024-03-12 09:37:26 Telephone Isael Torito [facility] 1.2.840.114 350.1.13.10 4.2.7.2.686 [id number] [facility] 2024-03-05 00:00:00 2024-03-05 00:00:00 Patient Outreach Simona VincentEstefany NAM 1.2.840.114 350.1.13.10 4.2.7.2.686 [id number] 403 [id number] [facility] 2024-02-26 00:00:00 2024-02-26 00:00:00 Patient Outreach Simona VincentEstefany NAM 1.2.840.114 350.1.13.10 4.2.7.2.686 [id number] 403 [id number] [facility] 2024-02-20 00:00:00 2024-02-20 00:00:00 Patient Outreach Cathie AlcantaraWon NAM 1.2.840.114 350.1.13.10 4.2.7.2.686 [id number] 403 [id number] [facility] 2024-02-10 00:00:00 2024-02-10 00:00:00 Patient Outreach Simona VincentWon NAM 1.2.840.114 350.1.13.10 4.2.7.2.686 [id number] 403 [id number] [facility] 2024-02-07 00:00:00 2024-02-07 00:00:00 Patient Outreach Simona VincentWon NAM 1.2.840.114 350.1.13.10 4.2.7.2.686 [id number] 403 [id number] [facility] 2024-01-29 11:00:00 2024-01-29 11:15:00 Patient Outreach Simona Vincent 1.2.840.114 350.1.13.10 4.2.7.2.686 [id number] 403 [id number] [facility] 2024-01-28 00:00:00 2024-01-28 00:00:00 Patient Outreach Simona Vincent 1.2.840.114 350.1.13.10 4.2.7.2.686 [id number] 403 [id number] [facility] 2023-12-24 00:00:00 2023-12-24 00:00:00 Patient Outreach Simona Vincent 1.2.840.114 350.1.13.10 4.2.7.2.686 [id number] 403 [id number] [facility] 2023-12-16 00:00:00 2023-12-16 00:00:00 Outpatient [facility] [id number] [facility] 2023-12-16 00:00:00 2023-12-16 00:00:00 Patient Outreach Simona Vincent 1.2.840.114 350.1.13.10 4.2.7.2.686 [id number] 403 [id number] [facility] 2023-12-16 00:00:00 2023-12-16 00:00:00 Patient Outreach Cathie Alcantara 1.2.840.114 350.1.13.10 4.2.7.2.686 [id number] 403 [id number] [facility] 2023-12-05 00:00:00 2023-12-05 00:00:00 Patient Outreach Simona Vincent 1.2.840.114 350.1.13.10 4.2.7.2.686 [id number] 403 [id number] [facility] 2023-11-29 00:00:00 2023-11-29 00:00:00 Outpatient [facility] [id number] [facility] 2023-11-25 00:00:00 2023-11-25 00:00:00 Patient Outreach Simona Vincent PATRICKCHANEL 1.2.840.114 350.1.13.10 4.2.7.2.686 [id number] 403 [id number] [facility] 2023-11-19 00:00:00 2023-11-19 00:00:00 Patient Outreach Simona Vincent PATRICKCHANEL 1.2.840.114 350.1.13.10 4.2.7.2.686 [id number] 403 [id number] [facility] 2023-11-08 00:00:00 2023-11-08 00:00:00 Patient Outreach Simona VincentEstefany NGUYENCHANEL 1.2.840.114 350.1.13.10 4.2.7.2.686 [id number] 403 [id number] [facility] 2023-11-05 00:00:00 2023-11-05 00:00:00 Patient Outreach Simona VincentEstefany NGUYENCHANEL 1.2.840.114 350.1.13.10 4.2.7.2.686 [id number] 403 [id number] [facility] 2023-11-01 00:00:00 2023-11-01 00:00:00 Patient Outreach Lesly Hammond 1.2.840.114 350.1.13.10 4.2.7.2.686 [id number] 403 [id number] [facility] 2023-10-23 00:00:00 2023-10-23 00:00:00 Patient Outreach Elsa Torres 1.2.840.114 350.1.13.10 4.2.7.2.686 [id number] 403 [id number] [facility] 2023-10-10 00:00:00 2023-10-10 00:00:00 Patient Outreach Cathie Alcantara 1.2.840.114 350.1.13.10 4.2.7.2.686 [id number] 403 [id number] [facility] 2023-10-08 00:00:00 2023-10-08 00:00:00 Patient Outreach Cathie Alcantara 1.2.840.114 350.1.13.10 4.2.7.2.686 [id number] 403 [id number] [facility] 2023-10-08 00:00:00 2023-10-08 00:00:00 Patient Outreach Cathie Alcantara 1.2.840.114 350.1.13.10 4.2.7.2.686 [id number] 403 [id number] [facility] 2023-09-28 00:00:00 2023-09-28 00:00:00 Telephone Torito Kirkland [facility] 1.2.840.114 350.1.13.10 4.2.7.2.686 [id number] [facility] 2023-09-24 00:00:00 2023-09-24 00:00:00 Patient Outreach Jana Hays 1.2.840.114 350.1.13.10 4.2.7.2.686 [id number] 403 [id number] [facility] 2023-09-23 00:00:00 2023-09-23 00:00:00 Outpatient [facility] [id number] [facility] 2023-09-23 00:00:00 2023-09-23 00:00:00 Patient Outreach Cathie Alcantara 1.2.840.114 350.1.13.10 4.2.7.2.686 [id number] 403 [id number] [facility] 2023-09-20 00:00:2023-09-20 00:00:00 Patient Outreach Cathie Alcantara 1.2.840.114 350.1.13.10 4.2.7.2.686 [id number] 403 [id number] [facility] 2023-09-19 00:00:00 2023-09-19 00:00:00 Patient Outreach Lesly HammondWon AUNDREA PLACHANEL 1.2.840.114 350.1.13.10 4.2.7.2.686 [id number] 403 [id number] [facility] 2023-09-19 00:00:00 2023-09-19 00:00:00 Patient Outreach Cathie Alcantara 1.2.840.114 350.1.13.10 4.2.7.2.686 [id number] 403 [id number] [facility] 2023-09-19 00:00:00 2023-09-19 00:00:00 Patient Outreach Jana Hays CHAS GUILLAUME PATRICKCHANEL 1.2.840.114 350.1.13.10 4.2.7.2.686 [id number] 403 [id number] [facility] 2023-09-17 09:53:00 2023-09-17 12:03:00 Emergency X JAMES Gaytan [facility] ERT [id number] [facility] 2023-09-17 09:53:00 2023-09-17 12:03:00 Emergency James gaytan [facility] 1.2.840.114 350.1.13.10 4.2.7.2.686 [id number] [facility] 2023-09-02 00:00:00 2023-09-02 00:00:00 Patient Outreach Simona VincentWon GUILLAUME PATRICKCHANEL 1.2.840.114 350.1.13.10 4.2.7.2.686 [id number] 403 [id number] [facility] 2023-08-15 12:30:00 2023-08-15 13:00:00 Patient Outreach Simona Vincent 1.2.840.114 350.1.13.10 4.2.7.2.686 [id number] 403 [id number] [facility] 2023-08-12 00:00:00 2023-08-12 00:00:00 Patient Outreach Simona Vincent 1.2.840.114 350.1.13.10 4.2.7.2.686 [id number] 403 [id number] [facility] 2023-08-09 00:00:00 2023-08-09 00:00:00 Patient Outreach Cathie Alcantara 1.2.840.114 350.1.13.10 4.2.7.2.686 [id number] 403 [id number] [facility] 2023-07-30 00:00:00 2023-07-30 00:00:00 Patient Outreach Jana Hays [facility] 1.2.840.114 350.1.13.10 4.2.7.2.686 [id number] 403 [id number] [facility] 2023-07-29 00:00:00 2023-07-29 00:00:00 Patient Outreach Simona Vincent 1.2.840.114 350.1.13.10 4.2.7.2.686 [id number] 403 [id number] [facility] 2023-07-26 00:00:00 2023-07-26 00:00:00 Patient Outreach Jana Hays [facility] 1.2.840.114 350.1.13.10 4.2.7.2.686 [id number] [facility] 2023-07-25 00:00:00 2023-07-25 00:00:00 Patient Outreach Jana Hays [facility] 1.2.840.114 350.1.13.10 4.2.7.2.686 [id number] 403 [id number] [facility] 2023-07-23 00:00:00 2023-07-23 00:00:00 Patient Outreach Jana Hays [facility] 1.2.840.114 350.1.13.10 4.2.7.2.686 [id number] 403 [id number] [facility] 2023-07-22 00:00:00 2023-07-22 00:00:00 Patient Outreach [place] [facility] 1.2.840.114 350.1.13.10 4.2.7.2.686 [id number] 403 [id number] [facility] 2023-07-22 00:00:00 2023-07-22 00:00:00 Patient Outreach Simona Vincent 1.2.840.114 350.1.13.10 4.2.7.2.686 [id number] 403 [id number] [facility] 2023-07-19 00:00:00 2023-07-19 00:00:00 Patient Outreach Simona Vincent 1.2.840.114 350.1.13.10 4.2.7.2.686 [id number] 403 [id number] [facility] 2023-07-19 00:00:00 2023-07-19 00:00:00 Patient Outreach Simona Vincent 1.2.840.114 350.1.13.10 4.2.7.2.686 [id number] 403 [id number] [facility] 2023-07-17 00:00:00 2023-07-17 00:00:00 Patient Outreach Simona Vincent 1.2.840.114 350.1.13.10 4.2.7.2.686 [id number] 403 [id number] [facility] 2023-07-16 00:00:00 2023-07-16 00:00:00 Patient Outreach HaysJana [facility] 1.2.840.114 350.1.13.10 4.2.7.2.686 [id number] 403 [id number] [facility] 2023-07-15 00:00:00 2023-07-15 00:00:00 Patient Outreach Simona Vincent 1.2.840.114 350.1.13.10 4.2.7.2.686 [id number] 403 [id number] [facility] 2023-07-10 00:00:00 2023-07-10 00:00:00 Patient Outreach Simona Vincent 1.2.840.114 350.1.13.10 4.2.7.2.686 [id number] 403 [id number] [facility] 2023-07-04 00:00:00 2023-07-04 00:00:00 Patient Outreach Simona Vincent 1.2.840.114 350.1.13.10 4.2.7.2.686 [id number] 403 [id number] [facility] 2023-06-28 10:53:00 2023-06-28 13:05:00 Emergency X KMAleksander [facility] ERT [id number] [facility] 2023-06-28 10:53:00 2023-06-28 13:05:00 Emergency Ademartimariealeksander [facility] 1.2.840.114 350.1.13.10 4.2.7.2.686 [id number] 084 [id number] [facility] 2023-06-27 00:00:00 2023-06-27 00:00:00 Patient Outreach Rachell Hayscelyn [facility] 1.2.840.114 350.1.13.10 4.2.7.2.686 [id number] 403 [id number] [facility] 2023-06-27 00:00:00 2023-06-27 00:00:00 Patient Outreach Saúl Jana [facility] 1.2.840.114 350.1.13.10 4.2.7.2.686 [id number] 403 [id number] [facility] 2023-06-24 00:00:00 2023-06-24 00:00:00 Patient Outreach Simona Vincent 1.2.840.114 350.1.13.10 4.2.7.2.686 [id number] 403 [id number] [facility] 2023-06-21 00:00:00 2023-06-21 00:00:00 Patient Outreach Hays, Jana [facility] 1.2.840.114 350.1.13.10 4.2.7.2.686 [id number] 403 [id number] [facility] 2023-06-14 00:00:00 2023-06-14 00:00:00 Patient Outreach Simona Vincent 1.2.840.114 350.1.13.10 4.2.7.2.686 [id number] 403 [id number] [facility] 2023-06-12 00:00:00 2023-06-12 00:00:00 Patient Outreach Jana Hays [facility] 1.2.840.114 350.1.13.10 4.2.7.2.686 [id number] 403 [id number] [facility] 2023-06-12 00:00:00 2023-06-12 00:00:00 Patient Outreach Jana Hays [facility] 1.2.840.114 350.1.13.10 4.2.7.2.686 [id number] 403 [id number] [facility] 2023-06-10 00:00:00 2023-06-10 00:00:00 [facility] 1.[facility].114 350.1.13.10 4.2.7.2.686 [id number] 403 [id number] [facility] 2023-06-07 00:00:00 2023-06-07 00:00:00 Patient Outreach Jana Hays [facility] 1.2.840.114 350.1.13.10 4.2.7.2.686 [id number] 403 [id number] [facility] 2023-06-05 00:00:00 2023-06-05 00:00:00 Patient Outreach Simona Vincent 1.2.840.114 350.1.13.10 4.2.7.2.686 [id number] 403 [id number] [facility] 2023-06-04 00:00:00 2023-06-04 00:00:00 Patient Outreach Simona Vincent 1.2.840.114 350.1.13.10 4.2.7.2.686 [id number] 403 [id number] [facility] 2023-06-03 00:00:00 2023-06-03 00:00:00 Patient Outreach Jana Hays [facility] 1.2.840.114 350.1.13.10 4.2.7.2.686 [id number] 403 [id number] [facility] 2023-05-30 00:00:00 2023-05-30 00:00:00 Patient Outreach Simona Vincent 1.2.840.114 350.1.13.10 4.2.7.2.686 [id number] 403 [id number] [facility] 2023-05-30 00:00:00 2023-05-30 00:00:00 Patient Outreach Jana Hays [facility] 1.2.840.114 350.1.13.10 4.2.7.2.686 [id number] 403 [id number] [facility] 2023-05-19 12:45:00 2023-05-19 14:10:00 Emergency X GIL MASON [facility] ERT [id number] [facility] 2023-05-19 12:45:00 2023-05-19 14:10:00 Emergency Gil Mason [facility] 1.2.840.114 350.1.13.10 4.2.7.2.686 [id number] 084 [id number] [facility] 2023-05-17 00:00:00 2023-05-17 00:00:00 Patient Outreach HaysJana [facility] 1.2.840.114 350.1.13.10 4.2.7.2.686 [id number] 403 [id number] [facility] 2023-05-16 00:00:00 2023-05-16 00:00:00 Patient Outreach Simona Vincent [facility] 1.2.840.114 350.1.13.10 4.2.7.2.686 [id number] 403 [id number] [facility] 2023-05-15 00:00:00 2023-05-15 00:00:00 Patient Outreach Jana Hays [facility] 1.2.840.114 350.1.13.10 4.2.7.2.686 [id number] 403 [id number] [facility] 2023-05-10 00:00:00 2023-05-10 00:00:00 Patient Outreach Simona Vincent [facility] 1.2.840.114 350.1.13.10 4.2.7.2.686 [id number] 403 [id number] [facility] 2023-05-10 00:00:00 2023-05-10 00:00:00 Patient Outreach Jana Hays [facility] 1.2.840.114 350.1.13.10 4.2.7.2.686 [id number] 403 [id number] [facility] 2023-05-08 00:00:00 2023-05-08 00:00:00 Patient Outreach Simona Vincent 1.2840.114 350.1.13.10 4.2.7.2.686 [id number] 403 [id number] [facility] 2023-05-03 00:00:00 2023-05-03 00:00:00 Patient Outreach HaysJana [facility] 1.20.114 350.1.13.10 4.2.7.2.686 [id number] 403 [id number] [facility] 2023-04-29 00:00:00 2023-04-29 00:00:00 Patient Outreach Simona Vincent 1.840.114 350.1.13.10 4.2.7.2.686 [id number] 403 [id number] [facility] 2023-04-24 00:00:00 2023-04-24 00:00:00 Outpatient [facility] [id number] [facility] 2023-04-23 00:00:00 2023-04-23 00:00:00 Patient Outreach HaysJana [facility] 1..114 350.1.13.10 4.2.7.2.686 [id number] 403 [id number] [facility] 2023-04-18 00:00:00 2023-04-18 00:00:00 Patient Outreach Simona Vincent 1.2840.114 350.1.13.10 4.2.7.2.686 [id number] 403 [id number] [facility] 2023-04-16 00:00:00 2023-04-16 00:00:00 Patient Outreach HaysJana [facility] 1.2840.114 350.1.13.10 4.2.7.2.686 [id number] 403 [id number] [facility] 2023-04-12 12:30:00 2023-04-12 13:15:00 Patient Outreach Simona Vincent 1.2.840.114 350.1.13.10 4.2.7.2.686 [id number] 403 [id number] [facility] 2023-04-11 00:00:00 2023-04-11 00:00:00 Patient Outreach Simona Vincent 1.2.840.114 350.1.13.10 4.2.7.2.686 [id number] 403 [id number] [facility] 2023-04-04 00:00:00 2023-04-04 00:00:00 Patient Outreach Simona Vincent 1.2.840.114 350.1.13.10 4.2.7.2.686 [id number] 403 [id number] [facility] 2023-03-29 00:00:00 2023-03-29 00:00:00 Patient Outreach Simona Vincent 1.2.840.114 350.1.13.10 4.2.7.2.686 [id number] 403 [id number] [facility] 2023-03-28 00:00:00 2023-03-28 00:00:00 Patient Outreach Cathie Alcantara 1.2.840.114 350.1.13.10 4.2.7.2.686 [id number] 403 [id number] [facility] 2023-03-28 00:00:00 2023-03-28 00:00:00 Patient Outreach Cathie Alcantara 1.2.840.114 350.1.13.10 4.2.7.2.686 [id number] 403 [id number] [facility] 2023-03-27 00:00:00 2023-03-27 00:00:00 Patient Outreach Simona Vincent 1.2.840.114 350.1.13.10 4.2.7.2.686 [id number] 403 [id number] [facility] 2023-03-27 00:00:00 2023-03-27 00:00:00 Patient Outreach Cathie Alcantara 1.2.840.114 350.1.13.10 4.2.7.2.686 [id number] 403 [id number] [facility] 2023-03-22 00:00:00 2023-03-22 00:00:00 Patient Outreach Cathie Alcantara 1.2.840.114 350.1.13.10 4.2.7.2.686 [id number] 403 [id number] [facility] 2023-03-19 00:00:00 2023-03-19 00:00:00 Patient Outreach Simona Vincent 1.2.840.114 350.1.13.10 4.2.7.2.686 [id number] 403 [id number] [facility] 2023-03-13 00:00:00 2023-03-13 00:00:00 Patient Outreach Cathie Alcantara 1.2.840.114 350.1.13.10 4.2.7.2.686 [id number] 403 [id number] [facility] 2023-03-08 00:00:00 2023-03-08 00:00:00 Patient Outreach Simona Vincent 1.2.840.114 350.1.13.10 4.2.7.2.686 [id number] 403 [id number] [facility] 2023-03-04 00:00:00 2023-03-04 00:00:00 Patient Outreach Simona Vincent 1.2.840.114 350.1.13.10 4.2.7.2.686 [id number] 403 [id number] [facility] 2023-03-04 00:00:00 2023-03-04 00:00:00 Patient Outreach ShaylaKevin mary 1.2.840.114 350.1.13.10 4.2.7.2.686 [id number] 403 [id number] [facility] 2023-02-28 10:15:00 2023-02-28 10:15:00 Outpatient MARTHA QUINONES [facility] [id number] [facility] 2023-02-27 00:00:00 2023-02-27 00:00:00 Patient Outreach Simona Vincent 1.2.840.114 350.1.13.10 4.2.7.2.686 [id number] 403 [id number] [facility] 2023-02-25 00:00:00 2023-02-25 00:00:00 Patient Outreach Simona Vincent 1.2.840.114 350.1.13.10 4.2.7.2.686 [id number] 403 [id number] [facility] 2023-02-21 00:00:00 2023-02-21 00:00:00 Patient Outreach Cathie Alcantara 1.2.840.114 350.1.13.10 4.2.7.2.686 [id number] 403 [id number] [facility] 2023-02-21 00:00:00 2023-02-21 00:00:00 Patient Outreach Simona Vincent 1.2.840.114 350.1.13.10 4.2.7.2.686 [id number] 403 [id number] [facility] 2023-02-20 09:00:00 2023-02-20 10:30:00 Patient Outreach Cathie Alcantara 1.2.840.114 350.1.13.10 4.2.7.2.686 [id number] 403 [id number] [facility] 2023-02-20 00:00:00 2023-02-20 00:00:00 Patient Outreach ShaylaKevin mary CH[facility] 1.2.840.114 350.1.13.10 4.2.7.2.686 [id number] 403 [id number] [facility] 2023-02-19 00:00:00 2023-02-19 00:00:00 Patient Outreach Cathie Alcantara GUILLAUMEEstefany NAM 1.2.840.114 350.1.13.10 4.2.7.2.686 [id number] 403 [id number] [facility] 2023-02-15 00:00:00 2023-02-15 00:00:00 Patient Outreach Simona Vincent [facility] N[facility] 1.2.840.114 350.1.13.10 4.2.7.2.686 [id number] 403 [id number] [facility] 2023-02-14 10:45:00 2023-02-14 10:45:00 Office Visit Martha Sharp [facility] 1.2.840.114 350.1.13.10 4.2.7.2.686 [id number] 198 [id number] [facility] 2023-02-14 10:45:00 2023-02-14 10:29:07 Outpatient R MARTHA SHARP [facility] [id number] [facility] 2023-02-14 00:00:00 2023-02-14 00:00:00 Orders Only Doctor Unassigned, [place] [facility] 1.2.840.114 350.1.13.10 4.2.7.2.686 [id number] 009 [id number] [facility] 2023-02-14 00:00:00 2023-02-14 00:00:00 Patient Outreach Cathie Alcantara 1.2.840.114 350.1.13.10 4.2.7.2.686 [id number] 403 [id number] [facility] 2023-02-14 00:00:00 2023-02-14 00:00:00 Patient Outreach Simona Vincent 1.2.840.114 350.1.13.10 4.2.7.2.686 [id number] 403 [id number] [facility] 2023-02-11 00:00:00 2023-02-11 00:00:00 Patient Outreach Simona Vincent 1.2.840.114 350.1.13.10 4.2.7.2.686 [id number] 403 [id number] [facility] 2023-02-04 00:00:00 2023-02-04 00:00:00 Patient Outreach Quinton Cathieopal [facility]ICK[facility] 1.2.840.114 350.1.13.10 4.2.7.2.686 [id number] 403 [id number] [facility] 2023-02-04 00:00:00 2023-02-04 00:00:00 Patient Outreach Shayla Kevin [facility] PATRICKCHANEL 1.2.840.114 350.1.13.10 4.2.7.2.686 [id number] 403 [id number] [facility] 2023-02-04 00:00:00 2023-02-04 00:00:00 Patient Outreach Simona Vincent 1.2.840.114 350.1.13.10 4.2.7.2.686 [id number] 403 [id number] [facility] 2023-01-30 00:00:00 2023-01-30 00:00:00 Patient Outreach Simona Vincent 1.2.840.114 350.1.13.10 4.2.7.2.686 [id number] 403 [id number] [facility] 2023-01-29 00:00:00 2023-01-29 00:00:00 Patient Outreach Simona Vincent ..114 350.1.13.10 4.2.7.2.686 [id number] 403 [id number] [facility] 2023-01-29 00:00:00 2023-01-29 00:00:00 Transition of Care Airam Thornton ..114 350.1.13.10 4.2.7.2.686 [id number] 403 [id number] [facility] 2023-01-16 19:34:00 2023-01-25 18:15:00 Inpatient U [facility] [id number] [facility] 2023-01-16 19:34:00 2023-01-25 18:15:00 Hospital Encounter Levi Brown, Mirlande Hernandez, Fermin Dunlap, Elieser Castorena, Torito Carrillo [facility] ..114 350.1.13.10 4.2.7.2.686 [id number] 093 [id number] [facility] 2023-01-25 00:00:00 2023-01-25 00:00:00 Transition of Care Airam Thornton ..114 350.1.13.10 4.2.7.2.686 [id number] 403 [id number] [facility] 2023-01-21 07:00:00 2023-01-21 08:14:00 Surgery Martha Sharp [facility] ..114 350.1.13.10 4.2.7.2.686 [id number] 020 [id number] [facility] 2023-01-16 00:00:00 2023-01-16 00:00:00 Orders Only Doctor Unassigned, [place] [facility] 1.2.840.114 350.1.13.10 4.2.7.2.686 [id number] 009 [id number] [facility] 2023-01-14 00:00:00 2023-01-14 00:00:00 Patient Outreach Cathie Alcantara [facility] 1.2.840.114 350.1.13.10 4.2.7.2.686 [id number] 403 [id number] [facility] 2023-01-11 00:00:00 2023-01-11 00:00:00 Patient Outreach Cathie Alcantara [facility] 1.2.840.114 350.1.13.10 4.2.7.2.686 [id number] 403 [id number] [facility] 2023-01-09 00:00:00 2023-01-09 00:00:00 Patient Outreach Lesly Hammond [facility] 1.2.840.114 350.1.13.10 4.2.7.2.686 [id number] 403 [id number] [facility] 2023-01-02 00:00:00 2023-01-02 00:00:00 Patient Outreach Simona Vincent [facility] 1.2.840.114 350.1.13.10 4.2.7.2.686 [id number] 403 [id number] [facility] 2022-12-31 00:00:00 2022-12-31 00:00:00 Patient Outreach Cathie Alcantara [facility] 1.2.840.114 350.1.13.10 4.2.7.2.686 [id number] 403 [id number] [facility] 2022-12-28 00:00:00 2022-12-28 00:00:00 Patient Outreach Cathie Alcantara [facility] 1.2.840.114 350.1.13.10 4.2.7.2.686 [id number] 403 [id number] [facility] 2022-12-27 00:00:00 2022-12-27 00:00:00 Patient Outreach Simona VincentEstefany NAM 1.2840.114 350.1.13.10 4.2.7.2.686 [id number] 403 [id number] [facility] 2022-12-18 15:14:00 2022-12-20 11:47:00 Outpatient X YVON BAIN, [facility] [id number] [facility] 2022-12-18 15:14:00 2022-12-20 11:47:00 Emergency Barak Murray [facility] ([facility]) 1.284.114 350.1.13.10 4.2.7.2.686 [id number] [facility] 2022-12-17 14:51:50 2022-12-17 14:51:50 Outpatient [facility] [id number] Jose Salazar 2022-12-17 00:00:00 2022-12-17 00:00:00 Patient Outreach Simona Vincent [facility] 1.284.114 350.1.13.10 4.2.7.2.686 [id number] 403 [id number] [facility] 2022-12-17 00:00:00 2022-12-17 00:00:00 Patient Outreach Simona Vincent [facility] N[facility] 1.284.114 350.1.13.10 4.2.7.2.686 [id number] 403 [id number] [facility] 2022-12-14 00:00:00 2022-12-14 00:00:00 Transition of Care Airam Thornton 1.2840.114 350.1.13.10 4.2.7.2.686 [id number] 403 [id number] [facility] 2022-12-08 12:11:00 2022-12-13 17:30:00 Inpatient X [facility] [id number] [facility] 2022-12-08 12:11:00 2022-12-13 17:30:00 Hospital Encounter Kevin Uriarte, Trisha Saldivar [facility] ([facility]) 1.2.840.114 350.1.13.10 4.2.7.2.686 [id number] [facility] 2022-12-12 17:56:00 2022-12-12 18:52:00 Surgery Mendoza Lovett [facility] ([facility]) 1.2.840.114 350.1.13.10 4.2.7.2.686 [id number] 020 [id number] [facility] 2022-12-12 00:00:00 2022-12-12 00:00:00 Patient Outreach Cathie Alcantara 1.2.840.114 350.1.13.10 4.2.7.2.686 [id number] 403 [id number] [facility] 2022-12-12 00:00:00 2022-12-12 00:00:00 Patient Outreach Simona Vincent 1.2.840.114 350.1.13.10 4.2.7.2.686 [id number] 403 [id number] [facility] 2022-12-05 00:00:00 2022-12-05 00:00:00 Patient Outreach Cathie Alcantara 1.2.840.114 350.1.13.10 4.2.7.2.686 [id number] 403 [id number] [facility] 2022-12-04 00:00:00 2022-12-04 00:00:00 Patient Outreach Cathie Alcantara 1.2.840.114 350.1.13.10 4.2.7.2.686 [id number] 403 [id number] [facility] 2022-12-01 15:15:00 2022-12-01 19:15:00 Emergency X GIL MASON [facility] ERT [id number] [facility] 2022-12-01 15:15:00 2022-12-01 19:15:00 Emergency Gil Mason [facility] 1.2.840.114 350.1.13.10 4.2.7.2.686 [id number] [id number] [facility] 2022-11-30 00:00:00 2022-11-30 00:00:00 Patient Outreach QuintonCathie barkleyWon GUILLAUMEEstefany NAM 1.2.840.114 350.1.13.10 4.2.7.2.686 [id number] 403 [id number] [facility] 2022-11-30 00:00:00 2022-11-30 00:00:00 Patient Outreach Simona VincentWon GUILLAUMEEstefany NAM 1.2.840.114 350.1.13.10 4.2.7.2.686 [id number] 403 [id number] [facility] 2022-11-30 00:00:00 2022-11-30 00:00:00 Patient Outreach Cathie AlcantaraWon GUILLAU[facility] PATRICKCHANEL 1.2.840.114 350.1.13.10 4.2.7.2.686 [id number] 403 [id number] [facility] 2022-11-30 00:00:00 2022-11-30 00:00:00 Patient Outreach Simona VincentWon [facility]LLAU[facility] PLACHANEL 1.2.840.114 350.1.13.10 4.2.7.2.686 [id number] 403 [id number] [facility] 2022-11-21 00:00:00 2022-11-21 00:00:00 Patient Outreach [place] [facility]AS [facility] 1.2.840.114 350.1.13.10 4.2.7.2.686 [id number] 403 [id number] [facility] 2022-11-20 11:00:00 2022-11-20 11:45:00 Patient Outreach Simona Vincent 1.2.840.114 350.1.13.10 4.2.7.2.686 [id number] 403 [id number] [facility] 2022-11-20 00:00:00 2022-11-20 00:00:00 Patient Outreach Cathie Alcantara 1.2.840.114 350.1.13.10 4.2.7.2.686 [id number] 403 [id number] [facility] 2022-11-16 00:00:00 2022-11-16 00:00:00 Patient Outreach Simona Vincent 1.2.840.114 350.1.13.10 4.2.7.2.686 [id number] 403 [id number] [facility] 2022-10-25 00:00:00 2022-10-25 00:00:00 Patient Outreach Simona Vincent 1.2.840.114 350.1.13.10 4.2.7.2.686 [id number] 403 [id number] [facility] 2022-10-24 00:00:00 2022-10-24 00:00:00 Patient Outreach Simona Vincent 1.2.840.114 350.1.13.10 4.2.7.2.686 [id number] 403 [id number] [facility] 2022-10-23 14:45:00 2022-10-23 15:30:00 Patient Outreach Simona Vincent 1.2.840.114 350.1.13.10 4.2.7.2.686 [id number] 403 [id number] [facility] 2022-10-22 00:00:00 2022-10-22 00:00:00 Patient Outreach [place] 1.2.840.114 350.1.13.10 4.2.7.2.686 [id number] 403 [id number] [facility] 2022-10-22 00:00:00 2022-10-22 00:00:00 Patient Outreach Simona Vincent 1.2.840.114 350.1.13.10 4.2.7.2.686 [id number] 403 [id number] [facility] 2022-10-17 00:00:00 2022-10-17 00:00:00 Patient Outreach Cathie Alcantara 1.2.840.114 350.1.13.10 4.2.7.2.686 [id number] 403 [id number] [facility] 2022-10-17 00:00:00 2022-10-17 00:00:00 Orders Only Doctor Unassigned, [place] [facility] 1.2.840.114 350.1.13.10 4.2.7.2.686 [id number] [facility] 2022-10-17 00:00:00 2022-10-17 00:00:00 Patient Outreach Simona Vincent 1.2.840.114 350.1.13.10 4.2.7.2.686 [id number] 403 [id number] [facility] 2022-10-16 00:00:00 2022-10-16 00:00:00 Patient Outreach Cathie Alcantara 1.2.840.114 350.1.13.10 4.2.7.2.686 [id number] 403 [id number] [facility] 2022-09-26 00:00:00 2022-09-26 00:00:00 Patient Outreach Tavia Rosenberg CH[facility] 1.2.840.114 350.1.13.10 4.2.7.2.686 [id number] 403 [id number] [facility] 2022-09-24 00:00:00 2022-09-24 00:00:00 Patient Outreach Simona Vincent 1.2.840.114 350.1.13.10 4.2.7.2.686 [id number] 403 [id number] [facility] 2022-09-21 00:00:00 2022-09-21 00:00:00 Patient Outreach Cathie Alcantara 1.2.840.114 350.1.13.10 4.2.7.2.686 [id number] 403 [id number] [facility] 2022-09-20 10:30:00 2022-09-20 11:30:00 Patient Outreach Simona Vincent 1.2.840.114 350.1.13.10 4.2.7.2.686 [id number] 403 [id number] [facility] 2022-09-20 10:30:00 2022-09-20 11:30:00 Patient Outreach Cathie Alcantara 1.2.840.114 350.1.13.10 4.2.7.2.686 [id number] 403 [id number] [facility] 2022-09-20 00:00:00 2022-09-20 00:00:00 Patient Outreach Cathie Alcantara 1.2.840.114 350.1.13.10 4.2.7.2.686 [id number] 403 [id number] [facility] 2022-09-19 00:00:00 2022-09-19 00:00:00 Patient Outreach Cathie AlcantaraWon AUNDREA NAM 1.2.840.114 350.1.13.10 4.2.7.2.686 [id number] 403 [id number] [facility] 2022-09-17 00:00:00 2022-09-17 00:00:00 Patient Outreach Cathie Alcantara Aleksander NAM 1.2.840.114 350.1.13.10 4.2.7.2.686 [id number] 403 [id number] [facility] 2022-09-07 00:00:00 2022-09-07 00:00:00 Transition of Care Airam Thornton 1.2.840.114 350.1.13.10 4.2.7.2.686 [id number] 403 [id number] [facility] 2022-09-07 00:00:00 2022-09-07 00:00:00 Transition of Care Airam Thornton 1.2.840.114 350.1.13.10 4.2.7.2.686 [id number] 403 [id number] [facility] 2022-09-02 02:06:00 2022-09-06 14:00:00 Inpatient [facility] [id number] [facility] 2022-09-02 02:06:00 2022-09-06 14:00:00 Hospital Encounter Ese Brownmarge Evette Akhil Rowe [facility] 1.2.840.114 350.1.13.10 4.2.7.2.686 [id number] [facility] 2022-08-29 22:49:00 2022-08-30 00:16:00 Emergency X [facility] [id number] [facility] 2022-08-29 22:49:00 2022-08-30 00:16:00 Emergency [place] 1.2.840.114 350.1.13.10 4.2.7.2.686 [id number] [facility] 2022-07-30 00:00:00 2022-07-30 00:00:00 Outpatient Visit [id number] 2022-06-22 00:00:00 2022-06-22 00:00:00 Outpatient Visit [id number] 2022-06-20 18:48:00 2022-06-20 23:01:00 Emergency X ARAVIND POLANCO [facility] ERT [id number] [facility] 2022-06-20 18:48:00 2022-06-20 23:01:00 Emergency Aravind Polanco [facility] 1.840.114 350.1.13.10 4.2.7.2.686 [id number] [facility] 2022-02-20 11:02:00 2022-02-22 13:05:00 Outpatient X DARRYL PEOPLES [facility] RAY [id number] [facility] 2022-02-20 11:02:00 2022-02-22 13:05:00 Emergency Vazquez Roach Jelani Lakhani, Adnan [facility] 1..114 350.1.13.10 4.2.7.2.686 [id number] [facility] 2022-02-20 00:00:00 2022-02-20 00:00:00 Orders Only Doctor Unassigned, [place] [facility] 1..114 350.1.13.10 4.2.7.2.686 [id number] [facility] 2020-10-25 00:00:00 2020-10-25 00:00:00 Orders Only Doctor Unassigned, [place] [facility] 1.0.114 350.1.13.10 4.2.7.2.686 [id number] 2020-10-25 00:00:00 2020-10-25 00:00:00 Orders Only Doctor Unassigned, [place] [facility] 1.2.840.114 350.1.13.10 4.2.7.2.686 [id number] [facility] 2020-10-12 14:28:00 2020-10-14 18:26:00 Hospital Encounter [facility] 1.2.840.114 350.1.13.10 4.2.7.2.686 [id number] 2020-10-12 14:28:00 2020-10-14 18:26:00 Inpatient X V[facility]ALL[facility] [id number] [facility] 2020-10-12 14:28:00 2020-10-14 18:26:00 Hospital Encounter [facility] 1.2.840.114 350.1.13.10 4.2.7.2.686 [id number] [facility] 2020-10-12 00:00:00 2020-10-12 00:00:00 Orders Only Doctor Unassigned, [place] [facility] 1.2.840.114 350.1.13.10 4.2.7.2.686 [id number] 2020-10-12 00:00:00 2020-10-12 00:00:00 Orders Only Doctor Unassigned, [place] [facility] 1.2.840.114 350.1.13.10 4.2.7.2.686 [id number] [facility] 2020-06-25 14:16:00 2020-06-25 15:40:00 Emergency [facility] [facility] 1.2.840.114 350.1.13.10 4.2.7.2.686 [id number] [id number] 2020-06-25 14:16:00 2020-06-25 15:40:00 Emergency Rose De La Paz [facility] 1.2.840.114 350.1.13.10 4.2.7.2.686 [id number] [facility] 2020-06-25 14:16:00 2020-06-25 14:16:00 Emergency X Rose DE LA PAZ [facility] ERT [id number] [facility] 2020-06-25 00:00:00 2020-06-25 00:00:00 Orders Only Doctor Unassigned, [place] [facility] 1.2.840.114 350.1.13.10 4.2.7.2.686 [id number] 2020-06-25 00:00:00 2020-06-25 00:00:00 Orders Only Doctor Unassigned, [place] [facility] 1.2.840.114 350.1.13.10 4.2.7.2.686 [id number] [id number] [facility] Results Test Description Test Time Test Comments Results Result Co mments Source [facility] GLUCOSE(AGE >30DAYS)2023-09-17 17:33:00* Test Item Value Reference Range Interpretation Comme nts POCT Glu (age>30days) (test code = 3342) 286 mg/dL 70-110 A Lab Interpretation (test cod e = 29002-5) Abnormal [facility] GLUCOSE (AUTOMATED)2023-01-25 16:41:32* Test Item Value Reference Range Interpretation Comme nts POCT GLU (test code = 9077253288) 100 mg/dL 70-110 Lab Interpretation (test cod e = 45644-3) Normal [facility] GLUCOSE (AUTOMATED)2023-01-25 12:46:45* Test Item Value Reference Range Interpretation Comme nts POCT GLU (test code = 3799009833) 95 mg/dL 70-110 Lab Interpretation (test cod e = 93934-5) Normal [facility] GLUCOSE (AUTOMATED)2023-01-25 02:11:01* Test Item Value Reference Range Interpretation Comme nts POCT GLU (test code = 7297869762) 183 mg/dL 70-110 H Notified Provide r Lab Interpretation (test code = 36683-4) Abnormal [facility] GLUCOSE (AUTOMATED)2023-01-24 22:20:55* Test Item Value Reference Range Interpretation Comme nts POCT GLU (test code = 4346959115) 175 mg/dL 70-110 H Lab Interpretation (test cod e = 68639-3) [facility] [id number] 19:45:01* Test Item Value Reference Range Interpretation Comme nts ESR (test code = 40927-6) 63 See_Comment H [Automated [employer] ge] The system which generated this result transmitted reference range: 0 - 10 mm/HR. The reference range was not used to interpret this result as normal/abnormal. Lab Interpretation (test code = 71711-3) Abnormal [facility] GLUCOSE (AUTOMATED)2023-01-24 16:55:03* Test Item Value Reference Range Interpretation Comme nts POCT GLU (test code = 1223327576) 192 mg/dL 70-110 H Lab Interpretation (test cod e = 45520-3) [facility] [id number] 15:28:57* Test Item Value Reference Range Interpretation Comme nts Case Report (test code = 7393940909) Surgical Pathology ?Case: [id number] ? Authorizing Provider: ?Martha Sharp DPM ? ? Collected: ? 01/21/2023 0850 ?Ordering Location: ? ? [facility] ? ? Received: ?01/21/2023 1120 ? Center ? Pathologist: ? Richard Fritz MD PhD ?Specimens: ? A) - BONE, bone right phalanx ? B) - BONE, bone right metatarsal ? Final Diagnosis (test code = 4270557490) v6iokYXqVXRat3siQNKrdJQ uZzEwMzNcZnRuYmpcdWMxIH tccnRmMVxlcGljMTAyMDZcY X0eqRxrjMy1xUjvCBDgcbR0 pULkKPsri3bfWIZ2w0hvhfp rAFFfIDblSp6jlXGmqChwJm JhALSqWFt9tV81YTEuqV3nr QMyCWk7FCEynWBtvsEiUoBu DILdvSQscHF2YBLeWG2bogd hCYvcGAuvPTFlhdJ9LXUctB StW8OrWRUmEU0hraeqVWK0Q IavCXZjWVJ0SgAjDNLwi9Pa xlo1CyNqkIXeKRwotZQofcc ddsMtNRNykyZSXsVGR11ZIU BSSUdIVCBGSUZUSCBQSEFMQ O1MBKEULB0TO0p1HFNsvlOf AWYzMA8dVRWEWTCEWUEzI7T VX1TLGxOpK1cMRTIYFgLJAX PCTEHYUv4LIJyRTtPzWTAtF FxwYXIgICAgICAtIEZSQUdN DY6GIfYBZtBSYGUWQVWrBp6 BYMMCOnWsSwaREv4YAsJGM8 1PASGEIKCZJCDRI9QUKHbjZ FJpPRImZZJgJF6RFPDWZUBL RT0YYWJFULyCBIcEXLSaYUN FTlRJRklFRFxwYXJccGFyIE DxXPXBPuDcBJWPJ3yUBHGCG aKYQO0BPHCDIYOHAQnfOPQE C8WTNFfgwZNjNTOqOMXwIGI JPdMYXMJOEVKqV3TfHcjEWk xFIEJPTkVccGFyICAgICAgL FNMXpKUK9QKRZQGM4JAC32W NMkYRAuEJZrKET7IZOZUFEQ ojOAgNMUbyrgcOQXoFPP7Hf T9ADTNo2DrvKBiME8xZGC0Z RXvb25rIZ0SPBAtVtThZzPn IDEwOjIyIEFNXHBhclxwYXJ rVARhyr09EOT1RaWmj1Z2DL SvXcEuIMFoCC5kbFaeSRDuQ Z3nYZGsJ8ccvN3isjt0JpDa AIGqYvZ4REIsktG4Hlu6GSX bIXytx0hnn1XwR9HvvGFncD n7h8lyFKYpNrF0iSFxMVddW 9nhjgJpgCDkLUFkQTy3xHdc HpHtPITwr8nesrNdMdPrZGS vJTOyOYWsoUpowzo3bD36BV UbaW0kpTTdDDozevYjZmG0N DhfSFVhEdR0QMEbvRQvLALx Y1bvEOVmHMstHUQoAXtvmES xZXC7fUllu8M0cLWyfEPhiM cvWaMsNjUwFLKHq2MtEKa8i QakT0WnRVQuYaH1oBEtQRIz EOpzTCPnIXJbffA9oX12JVo xtrU7nCXgw5Lbd15uc818iN 3slEBoWGP2JWHpRKIkuGFaS AQqBJK8LRKvyPBtS5zkGUUs ET1rqrvrRItoSSdzCJUbaOL 4IIDiyWUsN1UkOMBtGLqlDS Ydbtb6JkDrBu7luNAosMbuF Chgj0tgr3auzFOhBxp3MYZj VkLkZyeqNAuii2Gbe3edZFS jkb3cMLA6oMQdwSsgr5R8iY OnXUHjkWDkgaKkDASmQaQ3D BrxGS2bbu72GQEcGZQ1ik9l iMThnSbwfkQgrIUvGTgvB3U gBCGal827KTLlX1OnQNHrg0 D7daHuZgVsCQMccRA0ghY9N PSiCQi3zWCdniA1caEfcAUz A0mphO2mMYTcQA6oytqis8k nJVqpMAisKGWxlIA0vfB1AX ZutFMlY0PlgA3cJDTmHEibM DFzqys6GoZzHd5feFEbqSvm MFxzYmtwYWdlXHBnbmNvbnR ccGduZGVjXHBsYWluXHBsYW luXGYwXGZzMjRccWxccGxha Y9bOsMkLlOcIFzzAE5fPCRo V7mupQNqIAMcHAAqS9bcJuV nrT7fvSygWMtjYqGjGvOzBR xwYXIgSSBoYXZlIHBlcnNvb uKmbBptffF0qLY2CRXkUPgr QDQoWWNjmQVkfa2rwJfuKDW aRN1zXAJhkgTcJAbsvDqgQG kqMVR1UHQxzQOrnPHxyXLyL SBieSByZXNpZGVudHMsIGZl cGget4Wou5YtvQV1cL8oy1c jg2WmHEBnnGE1EA09yuO9aL 2wQGXyDP2fZBVuFB7maTDrr JQjPURdx18izSwpuwYtBZHx cnQuXHBsYWluXGYyXGZzMjh cbGFuZzEwMzNcaGljaFxmMl ahXnOpFVWzZLagC2zsPpJhH dVeQXccZKY5aV== Clinical Information (test code = 1696717319) Subacute osteomyelitis of right foot [M86.271] Gross Description (test code = 3289416396) d6xjtQOiUACkuGDCTFNuVIM gYZ7bzAneiZh4uVkqIQUgbb O4pEBnKEacw0ohGPR8h8kiw mFCHtsuSQAiPO5cXLukJGGb WM0gCxWfRVRvLoHjKEUdkWM dbnGiWrNeZKMnhTHeyAE3EU UwNB7mcwgyWXtxPXwgWBMbe sS8JQTquHZhY8EjBZCbHC5u npfaGWZ3ZCJPHuleZw3dsOC ibHtcZjFcZmNoYXJzZXQwXG YmgGgjOZEgXRm8bT7RMnrqJ PR9NATAJcciJyqelSeqr9Ay dCBcXHNnIFxcaWQgNTEwMDA kXDknDfRPHuWcAkS7OgI5Gz QjPnF1OUo9ZSFFQNWpJsC4X rH9JrJ3NAz7PJPyJM6bOZqz pTNiLAheIqdlOVwuV733GWf uUDMpX6ZnD6FeKXouRaEiBL yiVAIcYUWyIGpgAEVkF8OAQ KYyQnB8DQLjVLQvSQy2LDhm E7XBUIZtRIEjTRN4HDd7TcA 8VCj5ACDDFz0kXVv6DoP1WP GoSIZ7DDl2KZWcBZBdBqIsA RPhNZQwUUvhsAJzFO9efEkg WASfCL9QKDDqTVtpOYZcKmR cP2NNL9sXJF9fOSihFSFpRZ pccGFyZCANClxwbGFpblxmc iGuWRt2llMeEEFpAkBlWGBw Z35yz3QFl9RhFE7NKGw6zqN purjkrI9wLZLbneXar6OvGT xlcGljWHNhMzAgDQpTcGVja E7flkXOEEljXZEpD2OpijJu EZeyTBOqqg5lkOktRTtnUwQ aXGVei2a1tAF7eJXlgWC0jB NcbJzyMN5zkZZvGTIYLN39a WJlciAiIGJvbmUgcmlnaHQg cEtpqRQelACkXTRcTODyj56 psYF8ijRnTqQjcoMuS9rrRM pduQPzu5HgiRMfNDDylehlv GErt4FoqUDaoFQlr53yxYV3 iAOneEFyKV1lZPGtgsLaUcT fV62cpuPoSUDxCzL1LRUeGA R6YLVkFqNagWFavsItV0ljP WdhdGUpLiAgVGhlIHNwZWNp bWVuIGlzIGZpbHRlcmVkIHR kwo12X5srYHWzaE2ec1idZq FpYOYaHXWwwOZyhWV9IYTae S8ucG00beCjrgHFOQssEa2u kE75uT6tVYZvL1NyL2fyyCV abXykds5KYdwcxPnkRgGfnA LgZwL1WIBdiFRzASS9SV6it ZqrGYEiTXy9CTfoKZFpJ3Bs B2UlYMxbGxPvVFzhLCLsFHU gAAysGEOhI8JVMTBoRpK9US FqWTDxPTk8FVeqE6DKFNRrK VYbLST5OCjgXoD1UQt0NUNF Jh2oGSh8AeE3JNNnTVY6OSb 3OCBcXHQgMiBcXHNzIDMgXF hkaIAlTB8nzNhaXJRfKFGmD DP3UGYxrXWTb5AlJDDqOEhb OrFaNTCZNXZPPP7YUqPSRKG trqPHOizeMJRjRZ9DMVBsDG snCAk2zdMrDDYvHcDxEbAkU lxlcGljTmVzdERvYzEgDQpc bHRycGFyXGxpbjBccmluMFx mMbJgLGGheDNEo9BcKPWDIe NwZWNpbWVuIEIgaXMgcmVjZ Qq3VNBlbL5sOi0dvCJpsP6x vVPvBUenWXQ1hUBvEGOuNSI wNISzJA19K8GjbdDbHLltTE smoaVeIhWuKISqIe5cAWDnt EsprXAfAXPlvRIbe8WnUptj VH2pFHKtjdLrf3BbBJ9yQGN mxO3rplqnudUgQVS8AM1poI ZklX00GQlcwI2azkzuB8ybA QEslhOiCvUfS58vppIxLYqu QffgzPYnKuBmvHZuBvWiQ26 nOX3rNQBkJXG8AXZjNxV8BW AuNiBjbSkuICBUaGUgZmlyc 5KenHLjo6RmKMVuWnOtF29v toMvfVNcTLJvH6ybRB2blSY 1kiWwt6JgaNYeDVPjv5MdgE mzazCaBNRhvT7gLU2wMMTrD 5oev0bkIHUoigFdlWznCOWp B69zJGWpWWIohDQqSWZjjlX nbWVudCBoYXMgYSBjbGVhbm r3LNSpPV4rPJA3ZVMge7VhO pQrUGNvylPrptWwi5aqEBQf pSYgi1t5KTXaWKJyjFosNQ2 vNRJys77vAND7zkJlE4TiXI ENhXBqq7Ido99iAB5mTJM8h sVwFMZxWOvgUI28SNxfMNMs hkfpyAh2INXcB5Nju71tBVQ 0byByZXZlYWwgdGFuLXllbG eiifLdxUNnJDT6wANtkNJtB TMooq9wRMTeJVQapXFmbZ4x ijYqbgDnrHVhtSB9RQNaSM5 5cNXpyObpcD0mHeAfMeLhBU WzuJxlb4ruGpUkCJXuwKTwL uxxLWRfh96xIRUizuYDZxgm AxCvXLBjD9ecLlNdVFuxtCY zKX2SX0RplAyoosPoa1YhAn xjKPMrRYsKIRsqGdomp0Jnp EXnc4FjKRBaWvTqM88yrnWo OMojIIVdiI6bxUZeDO0UXqE dPoJ7DXOpL08sCAZwCYOxaD EaKUQmaiBkzPSdaTlcp7Vjh DEorBgnd4MydIchorZqYZtw xJOtdpq8KCZqLF8aKMW7ZMB vp4KrCcPpQCFvfmwqZXUaeB KfSVmuHGGsCJmazBNtHL6TQ CGqStUzXTKiU5pyXMVqAR1P BTZjiNPYPAmbt1BpIHfiGZW iCYGMF6BvLSatUPBoV76ht1 KKb6Mrs8ycyBpyc8JqfDVmL W06RVWyxCPsXYJ7TX0fhWnw YXIgDQpccGFyZCANCn0= Disclaimer (test code = 7256393099) p2funXVoVAPyt8ebKSJtyGX uZzEwMzNcZnRuYmpcdWMxIH mmgeVoKLjkq4UiZ5TjVeAtE FxhbnNpXGRlZmxhbmcxMDMz KTO2xkGpJSRoJCzzZURuIRg yCo3khVCjyFmnBtNpXQPcj2 zughIYXAhcLpXyX239SFBqD Tbli7byt8AiXSZptCUyl2E5 XGWKrglflFb2rAlrS93co3O 6EiewI0wmZHEgRTExA7KsYJ 6lRUImQtc3QEG2HBN7SWKgI EZpA3XfGH8xETGgtIAwLZq5 p0shlYrfKPRcRON2u2tjHJa mazXnVG3qah6seDq6v7fzfd SxKUHzZXRnaAMINSCcK3Xag ZdlYi3vpJz0cPxdNwnhWFF2 Ymu1WZ6stw45jbz8nNemXHI ndlsmKgE4LTwoFBIdmeuiRP h7BNkrNGZtxHD4DQSrwAFwI 3PfRWZnRX7xcbd4DCY5MMav LZLyFhG2VOBarYDyJOQqpIp rNOpwm903PQN2HaKbQN3dJ2 Hdz0X8cC3uzMQiJXFulMGdH yCyUPTwza4kqJGiZKlqy4Yq SOX5loA8dJPlnEJzAFJyKF3 2Jenyp2IiNaljd7NwP92qbD B4MLhvl5vrTH7cVuM0cnDpE Zcky0ryaG6jNtF6LFjwXW0d PP6vJDWzxS0fdduvNDSpLmS jwxozCLXjxGmxfiCfSv7lhL taYLF8DZrpP0qmfQ0bJqA7N IzuC6jqiK6tPKe2GZorkQA0 NFTvpX6oTH8fjmipj6uuLYl pLJrxINCwakN5qmG2OYObuQ BmV5JnlN8wKXAiOT3ullfsv 4zfMET4ZBhxYVFjWGY3WmIy IMIiw9Eccus4HkYmu7PevYD uTHwmW68gz012MLFruyIvI5 xwbGFpblxwbGFpblxmMFxmc oS6PRGuzbCly3ZaHMLxQHT4 GYzxTUzczDZqYUXmgXjll3w pU9NdvWXkDQVcEExrPEFvTE ZzMjBcbGFuZzEwMzNcaGlja LedFIjzBpMxDBRvDLylB6gl GkJpZ5YrSGDeQjYoiECvE7l jAXclivSuULLnfsXbyND2NH abX2z8XTRfjrMysHk8jrDjB vJoKOIiFYH0MSavyHGeXKDt p3EennjwmJAqDl1ocHQmJXS tkT9dKRZqZAQyKGwxSJ0hrC l0KVLHqIDycMMuUzZTGDYnW V28ueVcDISCsnzkh6Q8VXhm TIFsy7GfeXEuS6avk9XbNDW ke72ySH3mw0R4r5ciUWR5VP 2mq4GcUKBpqSEhjZGuACDdx 5Jjvlueu7TwHFEthyFbp2Mv ZCBhbmQgaXRzIHBlcmZvcm1 vhdRmHYVxCUZgF8HnsgqqvT uhobUrHBAphw1qkbUcPZJ1O FSMPEVaHQKpm5ChwP4puELB YUC5qEIhcc1yipIToVTwKXS mxu60MBXiAR8zI0kaSIWwFB PablZfhNWuf3AbSROfuFB3a VWoWR7LTqOVk59gJEAiACQG srDoSVJpnUvhiEW7tuZ2lC6 uIChGREEpLlx+IFRoZSBGRE IpMZ4mwpOft6ObqmKklYmbN YGlpTMsv4AdeIGse0QolFwe z3NdzXQmmMXnFZ7wSASqchc qQRRdOYCGZpVXEOVlgeU9e6 LmIAReZBQkIGB9qGmchwc4H JPdqZ8uAJGiO0kbniexIMxu CQAbh9FpdR3haCMAnLSob2W fgUHkoIQPlTTkPL8ijpEvWC uYKMsNHRP8ljFaCQIlt6RcH NlqY9rwZ77vyUjrlKr9sCX2 HPO6kO9lLqb+IFxwYXJccGF yIEFwcHJvcHJpYXRlbHkgcm OeY5ZfroJhzL5mcZXmafUeY Q3eLT0cU2T1kUCqDOBzqaWu i8zxQPcuhaYjOoOejsGjKOB xTLanGRVka7YcWCwpZMR9IF lucyBpbmNsdWRpbmcgSCZFL KBRyRYbgGHgCUX7QDfqwfSa diBcEF7yfX3lrSryxH3ogJJ dlQR7cxamJIKoAALskKqiJN UtON5ltFGsIRUyhpAVkWjlp AVwxD5oW9NvSLFuBYMxtz9x KKTehI5sEIjbf1YhqnoaULZ qCVFmAACqvtQqkz7uQUWyeN LADS4QAJtnpSBul9IpbcTuL 5kQJFC5IWZfNeTrQrvwZEHl vZTkmZEeRWEwfa22VSHdpP8 dzCygXKEgwG1dcA1flGovdD 7vZrYyZhTwLIeePG1rYQNsG 5lpxYBgYDSdXLKmM3ygWlHc wJ9fqVcnQSeeOgBgQdIeHYz fJJB0eW== Embedded Images (test code = 8174506406) [facility] GLUCOSE (AUTOMATED)2023-01-24 12:44:49* Test Item Value Reference Range Interpretation Comme nts POCT GLU (test code = 3129845204) 118 mg/dL 70-110 H Lab Interpretation (test cod e = 18371-0) Abnormal [facility] GLUCOSE (AUTOMATED)2023-01-24 01:58:32* Test Item Value Reference Range Interpretation Comme nts POCT GLU (test code = 4387237172) 189 mg/dL 70-110 H Lab Interpretation (test cod e = 38534-0) Abnormal [facility] GLUCOSE (AUTOMATED)2023-01-23 21:37:40* Test Item Value Reference Range Interpretation Comme nts POCT GLU (test code = 3097908722) 202 mg/dL 70-110 H Lab Interpretation (test cod e = 27676-0) Abnormal [facility] GLUCOSE (AUTOMATED)2023-01-23 16:53:23* Test Item Value Reference Range Interpretation Comme nts POCT GLU (test code = 2218101622) 131 mg/dL 70-110 H Lab Interpretation (test cod e = 93601-8) Abnormal [facility] GLUCOSE (AUTOMATED)2023-01-23 12:08:05* Test Item Value Reference Range Interpretation Comme nts POCT GLU (test code = 2523322131) 122 mg/dL 70-110 H Lab Interpretation (test cod e = 24965-8) Abnormal [facility] GLUCOSE (AUTOMATED)2023-01-23 02:01:07* Test Item Value Reference Range Interpretation Comme nts POCT GLU (test code = 9418730674) 174 mg/dL 70-110 H Lab Interpretation (test cod e = 80309-8) Abnormal [facility] GLUCOSE (AUTOMATED)2023-01-22 22:16:14* Test Item Value Reference Range Interpretation Comme nts POCT GLU (test code = 3651132105) 157 mg/dL 70-110 H Lab Interpretation (test cod e = 46095-3) Abnormal [facility] GLUCOSE (AUTOMATED)2023-01-22 16:15:57* Test Item Value Reference Range Interpretation Comme nts POCT GLU (test code = 0520703023) 113 mg/dL 70-110 H Lab Interpretation (test cod e = 48857-2) Abnormal [facility] GLUCOSE (AUTOMATED)2023-01-22 16:15:57* Test Item Value Reference Range Interpretation Comme nts POCT GLU (test code = 8503465851) 113 mg/dL 70-110 H Lab Interpretation (test cod e = 22078-4) Abnormal [facility] GLUCOSE (AUTOMATED)2023-01-22 12:24:40* Test Item Value Reference Range Interpretation Comme nts POCT GLU (test code = 4894855628) 95 mg/dL 70-110 Lab Interpretation (test cod e = 78336-7) Normal [facility] GLUCOSE (AUTOMATED)2023-01-22 12:24:40* Test Item Value Reference Range Interpretation Comme nts POCT GLU (test code = 0273252079) 95 mg/dL 70-110 Lab Interpretation (test cod e = 23059-3) [facility] [id number] 02:01:45* Test Item Value Reference Range Interpretation Comme nts Blood Culture-Aerobic (test code = 68540-0) No organisms isolated No growth Previous preliminary [...] 210 CDT Blood Culture-Anaerobic (test code = 80241-7) No organisms isolated No growth Previous preliminary [...] 2101 CDT Lab Interpretation (test code = 69491-4) [facility] CULTURE [id number] 02:01:45* Test Item Value Reference Range Interpretation Comme nts Blood Culture-Aerobic (test code = 25288-2) No organisms isolated No growth Previous preliminary [...] 210 CDT Blood Culture-Anaerobic (test code = 05223-0) No organisms isolated No growth Previous preliminary [...] 2101 CDT Lab Interpretation (test code = 55048-6) [facility] CULTURE [id number] 02:01:45* Test Item Value Reference Range Interpretation Comme nts Blood Culture-Aerobic (test code = 63863-1) No organisms isolated No growth Previous preliminary [...] 210 CDT Blood Culture-Anaerobic (test code = 26673-7) No organisms isolated No growth Previous preliminary verified result was Culture In Progress on 01/17/2023 at 2236 CDTPrevious preliminary verified result was No growth at 24 hours on 01/17/2023 at 210 CDTPrevious preliminary verified result was No growth at 48 hours on 01/18/2023 at 210 CDTPrevious preliminary verified result was No growth at 72 hours on 01/19/2023 at 2100 CDT Lab Interpretation (test code = 74108-7) Normal [facility] CULTURE [id number] 02:01:45* Test Item Value Reference Range Interpretation Comme [facility] Blood Culture-Aerobic (test code = 35425-8) No organisms isolated No growth Previous preliminary [...] 2100 CDT Blood Culture-Anaerobic (test code = 58045-1) No organisms isolated No growth Previous preliminary [...] 210 CDT Lab Interpretation (test code = 46793-5) Normal [facility] GLUCOSE (AUTOMATED)2023-01-22 01:31:41* Test Item Value Reference Range Interpretation Comme [facility] POCT GLU (test code = 4714166945) 149 mg/dL 70-110 H Lab Interpretation (test cod e = 58722-3) Abnormal [facility] GLUCOSE (AUTOMATED)2023-01-22 01:31:41* Test Item Value Reference Range Interpretation Comme nts POCT GLU (test code = 2543752511) 149 mg/dL 70-110 H Lab Interpretation (test cod e = 91037-7) [facility]21 22:11:04* Test Item Value Reference Range Interpretation Comme nts POCT GLU (test code = 5967758582) 135 mg/dL 70-110 H Lab Interpretation (test cod e = 22144-8) Abnormal [facility] GLUCOSE (AUTOMATED)2023-01-21 22:11:04* Test Item Value Reference Range Interpretation Comme nts POCT GLU (test code = 5334607033) 135 mg/dL 70-110 H Lab Interpretation (test cod e = 72365-6) Abnormal [facility] GLUCOSE (AUTOMATED)2023-01-21 17:12:33* Test Item Value Reference Range Interpretation Comme nts POCT GLU (test code = 3984899315) 198 mg/dL 70-110 H Lab Interpretation (test cod e = 57405-5) Abnormal [facility] GLUCOSE (AUTOMATED)2023-01-21 17:12:33* Test Item Value Reference Range Interpretation Comme nts POCT GLU (test code = 8018727313) 198 mg/dL 70-110 H Lab Interpretation (test cod e = 74694-2) Abnormal [facility] GLUCOSE (AUTOMATED)2023-01-21 12:20:31* Test Item Value Reference Range Interpretation Comme nts POCT GLU (test code = 1187621726) 115 mg/dL 70-110 H Lab Interpretation (test cod e = 60663-4) Abnormal [facility] GLUCOSE (AUTOMATED)2023-01-21 12:20:31* Test Item Value Reference Range Interpretation Comme nts POCT GLU (test code = 5962094166) 115 mg/dL 70-110 H Lab Interpretation (test cod e = 88393-7) Abnormal [facility] GLUCOSE (AUTOMATED)2023-01-21 01:37:46* Test Item Value Reference Range Interpretation Comme nts POCT GLU (test code = 2004348704) 166 mg/dL 70-110 H Lab Interpretation (test cod e = 73485-6) Abnormal [facility] GLUCOSE (AUTOMATED)2023-01-21 01:37:46* Test Item Value Reference Range Interpretation Comme nts POCT GLU (test code = 8999539092) 166 mg/dL 70-110 H Lab Interpretation (test cod e = 79253-9) Abnormal [facility] GLUCOSE (AUTOMATED)2023-01-20 21:42:22* Test Item Value Reference Range Interpretation Comme nts POCT GLU (test code = 6631025744) 219 mg/dL 70-110 H Lab Interpretation (test cod e = 57652-2) Abnormal [facility] GLUCOSE (AUTOMATED)2023-01-20 21:42:22* Test Item Value Reference Range Interpretation Comme nts POCT GLU (test code = 4584142398) 219 mg/dL 70-110 H Lab Interpretation (test cod e = 70922-4) Abnormal [facility] GLUCOSE (AUTOMATED)2023-01-20 16:56:11* Test Item Value Reference Range Interpretation Comme nts POCT GLU (test code = 3059644795) 176 mg/dL 70-110 H Lab Interpretation (test cod e = 88665-8) Abnormal [facility] GLUCOSE (AUTOMATED)2023-01-20 16:56:11* Test Item Value Reference Range Interpretation Comme nts POCT GLU (test code = 6291375015) 176 mg/dL 70-110 H Lab Interpretation (test cod e = 18452-6) Abnormal [facility] GLUCOSE (AUTOMATED)2023-01-20 12:46:22* Test Item Value Reference Range Interpretation Comme nts POCT GLU (test code = 0990879239) 153 mg/dL 70-110 H Lab Interpretation (test cod e = 18996-0) [facility] 12:46:22* Test Item Value Reference Range Interpretation Comme nts POCT GLU (test code = 5924919590) 153 mg/dL 70-110 H Lab Interpretation (test cod e = 00770-1) Abnormal [facility] GLUCOSE (AUTOMATED)2023-01-20 01:50:29* Test Item Value Reference Range Interpretation Comme nts POCT GLU (test code = 2410913637) 198 mg/dL 70-110 H Lab Interpretation (test cod e = 13453-1) Abnormal [facility] GLUCOSE (AUTOMATED)2023-01-20 01:50:29* Test Item Value Reference Range Interpretation Comme nts POCT GLU (test code = 0070805381) 198 mg/dL 70-110 H Lab Interpretation (test cod e = 75716-9) Abnormal [facility] GLUCOSE (AUTOMATED)2023-01-19 22:56:29* Test Item Value Reference Range Interpretation Comme nts POCT GLU (test code = 5800858582) 180 mg/dL 70-110 H Lab Interpretation (test cod e = 94569-7) Abnormal [facility] GLUCOSE (AUTOMATED)2023-01-19 22:56:29* Test Item Value Reference Range Interpretation Comme nts POCT GLU (test code = 6738282313) 180 mg/dL 70-110 H Lab Interpretation (test cod e = 16939-3) Abnormal [facility] GLUCOSE (AUTOMATED)2023-01-19 16:54:55* Test Item Value Reference Range Interpretation Comme nts POCT GLU (test code = 6173927906) 123 mg/dL 70-110 H Lab Interpretation (test cod e = 92291-4) Abnormal [facility] GLUCOSE (AUTOMATED)2023-01-19 16:54:55* Test Item Value Reference Range Interpretation Comme nts POCT GLU (test code = 8079266652) 123 mg/dL 70-110 H Lab Interpretation (test cod e = 57367-1) Abnormal [facility] GLUCOSE (AUTOMATED)2023-01-19 12:50:07* Test Item Value Reference Range Interpretation Comme nts POCT GLU (test code = 7725140357) 128 mg/dL 70-110 H Lab Interpretation (test cod e = 25608-8) Abnormal [facility] GLUCOSE (AUTOMATED)2023-01-19 12:50:07* Test Item Value Reference Range Interpretation Comme nts POCT GLU (test code = 7648912079) 128 mg/dL 70-110 H Lab Interpretation (test cod e = 44315-7) [facility]:42* Test Item Value Reference Range Interpretation Comme nts PHOSPHORUS (test code = 7915307965) 4.9 mg/dL 2.5-5.0 Lab Interpretation (test cod e = 44055-8) [facility] 09:48:42* Test Item Value Reference Range Interpretation Comme nts PHOSPHORUS (test code = 0790604053) 4.9 mg/dL 2.5-5.0 Lab Interpretation (test cod e = 89765-5) [facility] 09:48:41* Test Item Value Reference Range Interpretation Comme nts MAGNESIUM (test code = 9138001556) 1.9 mg/dL 1.7-2.4 Lab Interpretation (test cod e = 90295-8) [facility] (NA, K, CL, CO2, GLUCOSE, BUN, CREATININE, CA)2023-01-19 09:48:41* Test Item Value Reference Range Interpretation Comme nts NA (test code = 2376352445) 137 mmol/L 135-145 K (test code = 5806018317) 3.9 mmol/L 3.5-5.0 CL (test code = 4121311082) 107 mmol/L 98-108 CO2 TOTAL (test code = 1662398397) 25 mmol/L 23-31 AGAP (test code = 1288974211) 5 2-16 BUN (test code = 5692331752) 30 mg/dL 7-23 H GLUCOSE (test code = 1453000736) 133 mg/dL 70-110 H CREATININE (test code = 4438138787) 1.52 mg/dL 0.60-1.25 H CALCIUM (test code = 0034319074) 8.9 mg/dL 8.6-10.6 eGFR (test code = 8339959742) 47.3 mL/min/1.73m2 SHIKHA (test code = SHIKHA) [...] imaging tests). Lab Interpretation (test code = 73395-5) [facility]18 09:48:41* Test Item Value Reference Range Interpretation Comme nts MAGNESIUM (test code = 6060831406) 1.9 mg/dL 1.7-2.4 Lab Interpretation (test cod e = 63053-2) [facility] (NA, K, CL, CO2, GLUCOSE, BUN, CREATININE, CA)2023-01-19 09:48:41* Test Item Value Reference Range Interpretation Comme nts NA (test code = 1905679512) 137 mmol/L 135-145 K (test code = 8177597136) 3.9 mmol/L 3.5-5.0 CL (test code = 2895044701) 107 mmol/L 98-108 CO2 TOTAL (test code = 1537429940) 25 mmol/L 23-31 AGAP (test code = 9537619894) 5 2-16 BUN (test code = 3501028312) 30 mg/dL 7-23 H GLUCOSE (test code = 2053647424) 133 mg/dL 70-110 H CREATININE (test code = 1471429046) 1.52 mg/dL 0.60-1.25 H CALCIUM (test code = 5388037523) 8.9 mg/dL 8.6-10.6 eGFR (test code = 1801293893) 47.3 mL/min/1.73m2 SHIKHA (test code = SHIKHA) [...] imaging tests). Lab Interpretation (test code = 03571-8) Abnormal [facility] WITH [id number] 09:20:04* Test Item Value Reference Range Interpretation Comme nts WBC (test code = 6690-2) 6.34 See_Comment [Automated nfon] The system which generated this result transmitted reference range: 4.20 - 10.70 10*3/?L. The reference range was not used to interpret this result as normal/abnormal. RBC (test code = 789-8) 3.52 See_Comment L [Automated nfon] The system which generated this result transmitted [...] 32.2 g/dL 31.2-35.0 RDW-SD (test code = 95394-6) 44.5 fL 38.5-51.6 RDW-CV (test code = 788-0) 13.8 % 12.1-15.4 PLT (test code = 777-3) 265 See_Comment [Automated messa ge] The system which generated this result transmitted reference range: 150 - 328 10*3/?L. The reference range was not used to interpret this result as normal/abnormal. MPV (test code = 13123-6) 10.7 fL 9.8-13.0 NRBC/100 WBC (test code = 5049568653) 0.0 See_Comment [Automated me ssage] The system which generated this result transmitted reference range: 0.0 - 10.0 /100 WBCs. The reference range was not used to interpret this result as normal/abnormal. NRBC x10^3 (test code = 8729026105) See_Comment [Automated messa ge] The system which generated this result transmitted reference range: 10*3/?L. The reference range was not used to interpret this result as normal/abnormal. GRAN MAT (NEUT) % (test code = 770-8) 44.9 % IMM GRAN % (test code = 6552883069) 0.20 % LYMPH % (test code = 736-9) 37.4 % MONO % (test code = 5905-5) 9.3 % EOS % (test code = 713-8) 6.6 % BASO % (test code = 706-2) 1.6 % GRAN MAT x10^3(ANC) (test code = 4882228204) 2.85 10*3/uL 1.99-6.95 IMM GRAN x10^3 (test code = 9550209051) 0.00-0.06 LYMPH x10^3 (test code = 731-0) 2.37 10*3/uL 1.09-3.23 MONO x10^3 (test code = 742-7) 0.59 10*3/uL 0.36-1.02 EOS x10^3 (test code = 711-2) 0.42 10*3/uL 0.06-0.53 BASO x10^3 (test code = 704-7) 0.10 10*3/uL 0.01-0.09 H Lab Interpretation (test code = 18316-3) Abnormal [facility] WITH [id number] 09:20:04* Test Item Value Reference Range Interpretation [...] 32.2 g/dL 31.2-35.0 RDW-SD (test code = 86220-1) 44.5 fL 38.5-51.6 RDW-CV (test code = 788-0) 13.8 % 12.1-15.4 PLT (test code = 777-3) 265 See_Comment [Automated messa ge] The system which generated this result transmitted reference range: 150 - 328 10*3/?L. The reference range was not used to interpret this result as normal/abnormal. MPV (test code = 93762-4) 10.7 fL 9.8-13.0 NRBC/100 WBC (test code = 8677863863) 0.0 See_Comment [Automated me ssage] The system which generated this result transmitted reference range: 0.0 - 10.0 /100 WBCs. The reference range was not used to interpret this result as normal/abnormal. NRBC x10^3 (test code = 9466124876) See_Comment [Automated messa ge] The system which generated this result transmitted reference range: 10*3/?L. The reference range was not used to interpret this result as normal/abnormal. GRAN MAT (NEUT) % (test code = 770-8) 44.9 % IMM GRAN % (test code = 7457441623) 0.20 % LYMPH % (test code = 736-9) 37.4 % MONO % (test code = 5905-5) 9.3 % EOS % (test code = 713-8) 6.6 % BASO % (test code = 706-2) 1.6 % GRAN MAT x10^3(ANC) (test code = 8833225280) 2.85 10*3/uL 1.99-6.95 IMM GRAN x10^3 (test code = 5631549019) 0.00-0.06 LYMPH x10^3 (test code = 731-0) 2.37 10*3/uL 1.09-3.23 MONO x10^3 (test code = 742-7) 0.59 10*3/uL 0.36-1.02 EOS x10^3 (test code = 711-2) 0.42 10*3/uL 0.06-0.53 BASO x10^3 (test code = 704-7) 0.10 10*3/uL 0.01-0.09 H Lab Interpretation (test code = 78616-0) Abnormal [facility] GLUCOSE (AUTOMATED)2023-01-19 01:22:17* Test Item Value Reference Range Interpretation Comme nts POCT GLU (test code = 8617952291) 164 mg/dL 70-110 H Lab Interpretation (test cod e = 50656-6) Abnormal [facility] GLUCOSE (AUTOMATED)2023-01-19 01:22:17* Test Item Value Reference Range Interpretation Comme nts POCT GLU (test code = 2884119799) 164 mg/dL 70-110 H Lab Interpretation (test cod e = 65862-1) Abnormal [facility] GLUCOSE (AUTOMATED)2023-01-18 21:51:49* Test Item Value Reference Range Interpretation Comme nts POCT GLU (test code = 0110748044) 188 mg/dL 70-110 H Lab Interpretation (test cod e = 16780-5) Abnormal [facility] GLUCOSE (AUTOMATED)2023-01-18 21:51:49* Test Item Value Reference Range Interpretation Comme nts POCT GLU (test code = 6672824334) 188 mg/dL 70-110 H Lab Interpretation (test cod e = 78787-7) Abnormal [facility] GLUCOSE (AUTOMATED)2023-01-18 17:39:13* Test Item Value Reference Range Interpretation Comme nts POCT GLU (test code = 2823127755) 137 mg/dL 70-110 H Lab Interpretation (test cod e = 40546-4) Abnormal [facility] GLUCOSE (AUTOMATED)2023-01-18 17:39:13* Test Item Value Reference Range Interpretation Comme nts POCT GLU (test code = 8561655466) 137 mg/dL 70-110 H Lab Interpretation (test cod e = 22385-8) Abnormal [facility] GLUCOSE (AUTOMATED)2023-01-18 13:22:16* Test Item Value Reference Range Interpretation Comme nts POCT GLU (test code = 9757669173) 123 mg/dL 70-110 H Lab Interpretation (test cod e = 13191-0) Abnormal [facility] GLUCOSE (AUTOMATED)2023-01-18 13:22:16* Test Item Value Reference Range Interpretation Comme nts POCT GLU (test code = 3250983209) 123 mg/dL 70-110 H Lab Interpretation (test cod e = 20597-1) Abnormal [facility] GLUCOSE (AUTOMATED)2023-01-18 02:14:12* Test Item Value Reference Range Interpretation Comme nts POCT GLU (test code = 4507314663) 190 mg/dL 70-110 H Lab Interpretation (test cod e = 11100-8) Abnormal [facility] GLUCOSE (AUTOMATED)2023-01-18 02:14:12* Test Item Value Reference Range Interpretation Comme nts POCT GLU (test code = 7598525104) 190 mg/dL 70-110 H Lab Interpretation (test cod e = 95143-9) Abnormal [facility] GLUCOSE (AUTOMATED)2023-01-17 22:23:15* Test Item Value Reference Range Interpretation Comme nts POCT GLU (test code = 9008267684) 178 mg/dL 70-110 H Lab Interpretation (test cod e = 20838-7) Abnormal [facility] GLUCOSE (AUTOMATED)2023-01-17 22:23:15* Test Item Value Reference Range Interpretation Comme nts POCT GLU (test code = 5423975527) 178 mg/dL 70-110 H Lab Interpretation (test cod e = 51791-4) Abnormal [facility] GLUCOSE (AUTOMATED)2023-01-17 17:05:22* Test Item Value Reference Range Interpretation Comme nts POCT GLU (test code = 7922007078) 179 mg/dL 70-110 H Lab Interpretation (test cod e = 93858-4) Abnormal [facility] GLUCOSE (AUTOMATED)2023-01-17 17:05:22* Test Item Value Reference Range Interpretation Comme nts POCT GLU (test code = 6668745843) 179 mg/dL 70-110 H Lab Interpretation (test cod e = 17101-5) Abnormal [facility] GLUCOSE (AUTOMATED)2023-01-17 13:31:16* Test Item Value Reference Range Interpretation Comme nts POCT GLU (test code = 9755734224) 195 mg/dL 70-110 H Lab Interpretation (test cod e = 20008-7) Abnormal [facility] GLUCOSE (AUTOMATED)2023-01-17 13:31:16* Test Item Value Reference Range Interpretation Comme nts POCT GLU (test code = 8544588405) 195 mg/dL 70-110 H Lab Interpretation (test cod e = 41470-5) Abnormal [facility] METABOLIC PANEL (NA, K, CL, CO2, GLUCOSE, BUN, CREATININE, CA)2023-01-17 10:58:32* Test Item Value Reference Range Interpretation Comme nts NA (test code = 6796387229) 136 mmol/L 135-145 K (test code = 5686876628) 4.0 mmol/L 3.5-5.0 CL (test code = 7143045011) 106 mmol/L 98-108 CO2 TOTAL (test code = 1806549462) 24 mmol/L 23-31 AGAP (test code = 8258410321) 6 2-16 BUN (test code = 0136009289) 22 mg/dL 7-23 GLUCOSE (test code = 3974178233) 175 mg/dL 70-110 H CREATININE (test code = 9148434138) 1.06 mg/dL 0.60-1.25 CALCIUM (test code = 0087698589) 8.7 mg/dL 8.6-10.6 eGFR (test code = 9801609634) 71.8 mL/min/1.73m2 SHIKHA (test code = SHIKHA) [...] imaging tests). Lab Interpretation (test code = 62072-4) Abnormal [facility] METABOLIC PANEL (NA, K, CL, CO2, GLUCOSE, BUN, CREATININE, CA)2023-01-17 10:58:32* Test Item Value Reference Range Interpretation Comme nts NA (test code = 8437986777) 136 mmol/L 135-145 K (test code = 6139690540) 4.0 mmol/L 3.5-5.0 CL (test code = 4306346099) 106 mmol/L 98-108 CO2 TOTAL (test code = 8471637931) 24 mmol/L 23-31 AGAP (test code = 8521867374) 6 2-16 BUN (test code = 5853277679) 22 mg/dL 7-23 GLUCOSE (test code = 2243880083) 175 mg/dL 70-110 H CREATININE (test code = 0892638823) 1.06 mg/dL 0.60-1.25 CALCIUM (test code = 8823356633) 8.7 mg/dL 8.6-10.6 eGFR (test code = 5269541703) 71.8 mL/min/1.73m2 SHIKHA (test code = SHIKHA) [...] imaging tests). Lab Interpretation (test code = 25635-9) Abnormal [facility] WITH [id number] 10:41:07* Test Item Value Reference Range Interpretation Comme nts WBC (test code = 6690-2) 8.21 See_Comment [Automated Passworksa ge] The system which generated this result transmitted reference range: 4.20 - 10.70 10*3/?L. The reference range was not used to interpret this result as normal/abnormal. RBC (test code = 789-8) 3.41 See_Comment L [Automated messa ge] The system [...] 33.3 g/dL 31.2-35.0 RDW-SD (test code = 79311-3) 45.0 fL 38.5-51.6 RDW-CV (test code = 788-0) 14.0 % 12.1-15.4 PLT (test code = 777-3) 279 See_Comment [Automated messa ge] The system which generated this result transmitted reference range: 150 - 328 10*3/?L. The reference range was not used to interpret this result as normal/abnormal. MPV (test code = 39146-0) 11.2 fL 9.8-13.0 NRBC/100 WBC (test code = 9158305881) 0.0 See_Comment [Automated Little1 ssage] The system which generated this result transmitted reference range: 0.0 - 10.0 /100 WBCs. The reference range was not used to interpret this result as normal/abnormal. NRBC x10^3 (test code = 3088852701) See_Comment [Automated messa ge] The system which generated this result transmitted reference range: 10*3/?L. The reference range was not used to interpret this result as normal/abnormal. GRAN MAT (NEUT) % (test code = 770-8) 60.5 % IMM GRAN % (test code = 9955646909) 0.20 % LYMPH % (test code = 736-9) 25.7 % MONO % (test code = 5905-5) 8.5 % EOS % (test code = 713-8) 4.0 % BASO % (test code = 706-2) 1.1 % GRAN MAT x10^3(ANC) (test code = 9902322017) 4.96 10*3/uL 1.99-6.95 IMM GRAN x10^3 (test code = 5074084122) 0.00-0.06 LYMPH x10^3 (test code = 731-0) 2.11 10*3/uL 1.09-3.23 MONO x10^3 (test code = 742-7) 0.70 10*3/uL 0.36-1.02 EOS x10^3 (test code = 711-2) 0.33 10*3/uL 0.06-0.53 BASO x10^3 (test code = 704-7) 0.09 10*3/uL 0.01-0.09 Lab Interpretation (test code = 12369-1) Abnormal [facility] WITH [id number] 10:41:07* Test Item Value Reference Range Interpretation Comme nts WBC (test code = 6690-2) 8.21 See_Comment [Automated messa ge] The system which generated this result transmitted reference range: 4.20 - 10.70 10*3/?L. The reference range was not used to interpret this result as normal/abnormal. RBC (test code = 789-8) 3.41 See_Comment L [Automated messa ge] The system [...] 33.3 g/dL 31.2-35.0 RDW-SD (test code = 10472-5) 45.0 fL 38.5-51.6 RDW-CV (test code = 788-0) 14.0 % 12.1-15.4 PLT (test code = 777-3) 279 See_Comment [Automated messa ge] The system which generated this result transmitted reference range: 150 - 328 10*3/?L. The reference range was not used to interpret this result as normal/abnormal. MPV (test code = 24948-8) 11.2 fL 9.8-13.0 NRBC/100 WBC (test code = 2877430641) 0.0 See_Comment [Automated Little1 ssage] The system which generated this result transmitted reference range: 0.0 - 10.0 /100 WBCs. The reference range was not used to interpret this result as normal/abnormal. NRBC x10^3 (test code = 8712430576) See_Comment [Automated messa ge] The system which generated this result transmitted reference range: 10*3/?L. The reference range was not used to interpret this result as normal/abnormal. GRAN MAT (NEUT) % (test code = 770-8) 60.5 % IMM GRAN % (test code = 4908098338) 0.20 % LYMPH % (test code = 736-9) 25.7 % MONO % (test code = 5905-5) 8.5 % EOS % (test code = 713-8) 4.0 % BASO % (test code = 706-2) 1.1 % GRAN MAT x10^3(ANC) (test code = 4204909205) 4.96 10*3/uL 1.99-6.95 IMM GRAN x10^3 (test code = 0478190934) 0.00-0.06 LYMPH x10^3 (test code = 731-0) 2.11 10*3/uL 1.09-3.23 MONO x10^3 (test code = 742-7) 0.70 10*3/uL 0.36-1.02 EOS x10^3 (test code = 711-2) 0.33 10*3/uL 0.06-0.53 BASO x10^3 (test code = 704-7) 0.09 10*3/uL 0.01-0.09 Lab Interpretation (test code = 41641-1) Abnormal [facility] GLUCOSE (AUTOMATED)2023-01-17 05:09:45* Test Item Value Reference Range Interpretation Comme [facility] POCT GLU (test code = 0148456260) 179 mg/dL 70-110 H Lab Interpretation (test cod e = 79356-3) Abnormal [facility] GLUCOSE (AUTOMATED)2023-01-17 05:09:45* Test Item Value Reference Range Interpretation Comme [facility] POCT GLU (test code = 8552987918) 179 mg/dL 70-110 H Lab Interpretation (test cod e = 78295-7) Abnormal [facility] METABOLIC PANEL (NA, K, CL, CO2, GLUCOSE, BUN, CREATININE, CA)2023-01-17 02:12:56* Test Item Value Reference Range Interpretation Comme [facility] NA (test code = 4369265581) 133 mmol/L 135-145 L K (test code = 9373832052) 5.6 mmol/L 3.5-5.0 H CL (test code = 1489017170) 97 mmol/L 98-108 L CO2 TOTAL (test code = 1236167304) 25 mmol/L 23-31 AGAP (test code = 9696699818) 11 2-16 BUN (test code = 1555399474) 22 mg/dL 7-23 GLUCOSE (test code = 6199640909) 322 mg/dL 70-110 H CREATININE (test code = 8540141860) 1.45 mg/dL 0.60-1.25 H CALCIUM (test code = 1401933325) 9.4 mg/dL 8.6-10.6 eGFR (test code = 3999857875) 50.0 mL/min/1.73m2 SHIKHA (test code = SHIKHA) [...] imaging tests). Lab Interpretation (test code = 27501-9) Abnormal [facility] METABOLIC PANEL (NA, K, CL, CO2, GLUCOSE, BUN, CREATININE, CA)2023-01-17 02:12:56* Test Item Value Reference Range Interpretation Comme nts NA (test code = 7168934559) 133 mmol/L 135-145 L K (test code = 6882465136) 5.6 mmol/L 3.5-5.0 H CL (test code = 2927637484) 97 mmol/L 98-108 L CO2 TOTAL (test code = 5642673911) 25 mmol/L 23-31 AGAP (test code = 5773501823) 11 2-16 BUN (test code = 2260208070) 22 mg/dL 7-23 GLUCOSE (test code = 5675516926) 322 mg/dL 70-110 H CREATININE (test code = 1811121827) 1.45 mg/dL 0.60-1.25 H CALCIUM (test code = 8179709688) 9.4 mg/dL 8.6-10.6 eGFR (test code = 5371420117) 50.0 mL/min/1.73m2 SHIKHA (test code = SHIKHA) [...] imaging tests). Lab Interpretation (test code = 17406-1) Abnormal [facility] WITH [id number] 02:01:11* Test Item Value Reference Range Interpretation Comme nts WBC (test code = 6690-2) 6.32 See_Comment [Automated Passworksa Keko] The system which generated this result transmitted [...] 34.6 g/dL 31.2-35.0 RDW-SD (test code = 59638-7) 42.6 fL 38.5-51.6 RDW-CV (test code = 788-0) 13.6 % 12.1-15.4 PLT (test code = 777-3) 291 See_Comment [Automated messa ge] The system which generated this result transmitted reference range: 150 - 328 10*3/?L. The reference range was not used to interpret this result as normal/abnormal. MPV (test code = 90408-7) 10.9 fL 9.8-13.0 NRBC/100 WBC (test code = 6570727671) 0.0 See_Comment [Automated Little1 ssage] The system which generated this result transmitted reference range: 0.0 - 10.0 /100 WBCs. The reference range was not used to interpret this result as normal/abnormal. NRBC x10^3 (test code = 2228000672) See_Comment [Automated messa ge] The system which generated this result transmitted reference range: 10*3/?L. The reference range was not used to interpret this result as normal/abnormal. GRAN MAT (NEUT) % (test code = 770-8) 48.1 % IMM GRAN % (test code = 0913194589) 0.20 % LYMPH % (test code = 736-9) 36.9 % MONO % (test code = 5905-5) 9.7 % EOS % (test code = 713-8) 3.8 % BASO % (test code = 706-2) 1.3 % GRAN MAT x10^3(ANC) (test code = 2315122994) 3.05 10*3/uL 1.99-6.95 IMM GRAN x10^3 (test code = 9169812493) 0.00-0.06 LYMPH x10^3 (test code = 731-0) 2.33 10*3/uL 1.09-3.23 MONO x10^3 (test code = 742-7) 0.61 10*3/uL 0.36-1.02 EOS x10^3 (test code = 711-2) 0.24 10*3/uL 0.06-0.53 BASO x10^3 (test code = 704-7) 0.08 10*3/uL 0.01-0.09 Lab Interpretation (test code = 94744-4) Abnormal [facility] WITH [id number] 02:01:11* Test Item Value Reference Range Interpretation [...] 34.6 g/dL 31.2-35.0 RDW-SD (test code = 53984-7) 42.6 fL 38.5-51.6 RDW-CV (test code = 788-0) 13.6 % 12.1-15.4 PLT (test code = 777-3) 291 See_Comment [Automated messa ge] The system which generated this result transmitted reference range: 150 - 328 10*3/?L. The reference range was not used to interpret this result as normal/abnormal. MPV (test code = 51838-6) 10.9 fL 9.8-13.0 NRBC/100 WBC (test code = 0074651665) 0.0 See_Comment [Automated me ssage] The system which generated this result transmitted reference range: 0.0 - 10.0 /100 WBCs. The reference range was not used to interpret this result as normal/abnormal. NRBC x10^3 (test code = 2062226556) See_Comment [Automated messa ge] The system which generated this result transmitted reference range: 10*3/?L. The reference range was not used to interpret this result as normal/abnormal. GRAN MAT (NEUT) % (test code = 770-8) 48.1 % IMM GRAN % (test code = 0503938218) 0.20 % LYMPH % (test code = 736-9) 36.9 % MONO % (test code = 5905-5) 9.7 % EOS % (test code = 713-8) 3.8 % BASO % (test code = 706-2) 1.3 % GRAN MAT x10^3(ANC) (test code = 8403042545) 3.05 10*3/uL 1.99-6.95 IMM GRAN x10^3 (test code = 9039589291) 0.00-0.06 LYMPH x10^3 (test code = 731-0) 2.33 10*3/uL 1.09-3.23 MONO x10^3 (test code = 742-7) 0.61 10*3/uL 0.36-1.02 EOS x10^3 (test code = 711-2) 0.24 10*3/uL 0.06-0.53 BASO x10^3 (test code = 704-7) 0.08 10*3/uL 0.01-0.09 Lab Interpretation (test code = 28470-4) Abnormal [facility] GLUCOSE (AUTOMATED)2022-12-20 13:26:29* Test Item Value Reference Range Interpretation Comme nts POCT GLU (test code = 7152132164) 131 mg/dL 70-110 H Lab Interpretation (test cod e = 75048-5) Abnormal [facility]. METABOLIC PANEL (55859)2022-12-20 10:43:37* Test Item Value Reference Range Interpretation Comme nts NA (test code = 0555490410) 135 mmol/L 135-145 K (test code = 0559107609) 4.0 mmol/L 3.5-5.0 CL (test code = 0292289288) 105 mmol/L 98-108 CO2 TOTAL (test code = 8778932338) 26 mmol/L 23-31 AGAP (test code = 5046433004) 4 2-16 BUN (test code = 7839774771) 29 mg/dL 7-23 H GLUCOSE (test code = 7274989946) 106 mg/dL 70-110 CREATININE (test code = 8009163644) 2.37 mg/dL 0.60-1.25 H TOTAL BILI (test code = 7183552247) 0.6 mg/dL 0.1-1.1 CALCIUM (test code = 8157932190) 8.6 mg/dL 8.6-10.6 T PROTEIN (test code = 7569219625) 7.1 g/dL 6.3-8.2 ALBUMIN (test code = 4508230965) 3.2 g/dL 3.5-5.0 L ALK PHOS (test code = 7362694002) 70 U/L 34-122 ALTv (test code = 1742-6) 16 U/L 5-50 AST(SGOT) (test code = 9928539915) 25 U/L 13-40 eGFR (test code = 7807950445) 28.4 mL/min/1.73m2 SHIKHA (test code = SHIKHA) [...] imaging tests). Lab Interpretation (test code = 81861-8) Abnormal [facility] GLUCOSE (AUTOMATED)2022-12-20 03:00:19* Test Item Value Reference Range Interpretation Comme nts POCT GLU (test code = 4924864235) 124 mg/dL 70-110 H Lab Interpretation (test cod e = 09110-2) Abnormal [facility] GLUCOSE (AUTOMATED)2022-12-19 21:15:28* Test Item Value Reference Range Interpretation Comme nts POCT GLU (test code = 4143138777) 216 mg/dL 70-110 H Lab Interpretation (test cod e = 56597-7) Abnormal [facility] GLUCOSE (AUTOMATED)2022-12-19 17:23:09* Test Item Value Reference Range Interpretation Comme nts POCT GLU (test code = 6887740084) 247 mg/dL 70-110 H Lab Interpretation (test cod e = 94199-3) Abnormal [facility] GLUCOSE (AUTOMATED)2022-12-19 15:24:47* Test Item Value Reference Range Interpretation Comme nts POCT GLU (test code = 9527396477) 288 mg/dL 70-110 H Lab Interpretation (test cod e = 85878-3) Abnormal [facility] GLUCOSE (AUTOMATED)2022-12-19 13:48:48* Test Item Value Reference Range Interpretation Comme nts POCT GLU (test code = 0247447469) 290 mg/dL 70-110 H Lab Interpretation (test cod e = 87558-8) [facility] 06:42:01* Test Item Value Reference Range Interpretation Comme nts POCT GLU (test code = 3860131985) 317 mg/dL 70-110 H Lab Interpretation (test cod e = 55515-7) [facility] [id number] 04:52:28* Test Item Value Reference Range Interpretation [...] SPECIMENS. FOR MOREINFORMATION, SEE CLIENT ANNOUNCEMENT AT [email or web address] RATIO LDL/HDL (test code = 2238) 1.65 RATIO <3.55 COMPREHENSIVE METABOLIC [id number] 04:52:28* Test Item Value Reference Range Interpretation Comme nts GLUCOSE (test code = 2217) 393 MG/DL 70-99 H BUN (test code = 2207) 15 MG/DL 6-20 CREATININE (test code = 2214) 1.26 MG/DL 0.80-1.40 eGFR (2020 CKD-EPI) (test code = 73579) 66 ML/MIN/1.73 >60 CALC BUN/CREAT (test code = 2235) 12 RATIO 6-28 SODIUM (test code = 223) 136 MEQ/L 133-146 POTASSIUM (test code = 8) 5.0 MEQ/L 3.5-5.4 CHLORIDE (test code = 2215) 99 MEQ/L 95-107 CARBON DIOXIDE (test code = 6) 25 MEQ/L 19-31 CALCIUM (test code = 2209) 9.7 MG/DL 8.5-10.5 PROTEIN, TOTAL (test code = 2229) 7.9 G/DL 6.1-8.3 ALBUMIN (test code = [...] (test code = 2219) 13 U/L 5-50 [facility] has important pathology staff changes effective 01/02/2023. New pathology staff will provide uninterrupted, excellent patient care and clinical consultation. See URL: [email or web address]. UNLESS OTHERWISE INDICATED, ALL TESTING PERFORMED AT [facility] [address] [place] [address] CLIA: [id number], CAP: [id number] HEMOGLOBIN [id number] 03:05:28* Test Item Value Reference Range Interpretation Comme [facility] HEMOGLOBIN A1c (test code = 46819) 12.2 % 4.2-5.6 H [employer] GUIDELINES FOR HGB A1C: [...] Comme nts POCT GLU (test code = 2729458422) 120 mg/dL 70-110 H Lab Interpretation (test cod e = 74696-6) Abnormal [facility] GLUCOSE (AUTOMATED)2022-12-13 18:00:10* Test Item Value Reference Range Interpretation Comme nts POCT GLU (test code = 6665867164) 120 mg/dL 70-110 H Lab Interpretation (test cod e = 52932-6) [facility]2022-12-13 14:04:41* Test Item Value Reference Range Interpretation Comme nts POCT GLU (test code = [id number]) 261 mg/dL 70-110 H Lab Interpretation (test cod e = 85348-1) Abnormal [facility] GLUCOSE (AUTOMATED)2022-12-13 14:04:41* Test Item Value Reference Range Interpretation Comme nts POCT GLU (test code = [id number]) 261 mg/dL 70-110 H Lab Interpretation (test cod e = 75760-5) Abnormal [facility] GLUCOSE (AUTOMATED)2022-12-13 03:21:11* Test Item Value Reference Range Interpretation Comme nts POCT GLU (test code = [id number]) 240 mg/dL 70-110 H Lab Interpretation (test cod e = 51059-2) Abnormal [facility] GLUCOSE (AUTOMATED)2022-12-13 03:21:11* Test Item Value Reference Range Interpretation Comme nts POCT GLU (test code = [id number]) 240 mg/dL 70-110 H Lab Interpretation (test cod e = 77163-6) Abnormal [facility] GLUCOSE (AUTOMATED)2022-12-12 18:16:27* Test Item Value Reference Range Interpretation Comme nts POCT GLU (test code = [id number]) 131 mg/dL 70-110 H Lab Interpretation (test cod e = 34329-1) Abnormal [facility] GLUCOSE (AUTOMATED)2022-12-12 18:16:27* Test Item Value Reference Range Interpretation Comme nts POCT GLU (test code = [id number]) 131 mg/dL 70-110 H Lab Interpretation (test cod e = 05789-8) [facility] - [facility] # 78433-12-05 13:50:47* Test Item Value Reference Range Interpretation Comme nts Blood Culture-Aerobic (test code = 57611-8) Culture positive. See Blood Culture Workup for additional information. No growth AA Previous preliminary verified result was Culture In Progress on 12/09/2022 at 0217 [employer] REPA[employer]PARER Blood Culture-Anaerobic (test code = 66687-7) Culture positive. See Blood Culture Workup for additional information. No growth AA Previous preliminary verified result was Culture In Progress on 12/08/2022 at 1701 [employer] AND REPAIRS PREPARER Lab Interpretation (test code = 57670-7) Abnormal [facility] Culture - Peripheral # 13:50:47* Test Item Value Reference Range Interpretation Comme nts Blood Culture-Aerobic (test code = 48313-3) Culture positive. See Blood Culture Workup for additional information. No growth AA Previous preliminary verified result was Culture In Progress on 12/09/2022 at 0217 [employer] AND REPAIRS PREPARER Blood Culture-Anaerobic (test code = 44045-3) Culture positive. See Blood Culture Workup for additional information. No growth AA Previous preliminary verified result was Culture In Progress on 12/08/2022 at 1701 SAMPLES AND REPAIRS PREPARER Lab Interpretation (test code = 05811-5) Abnormal [facility] CULTURE [id number] 13:50:42* Test Item Value Reference Range Interpretation Comme [facility] Blood Culture Workup (test code = 600-7) [...] the extremely rare nature of non-susceptible isolates. [facility] CULTURE [id number] 13:50:42* Test Item Value Reference Range Interpretation Comme [facility] Blood Culture Workup (test code = 600-7) [...] the extremely rare nature of non-susceptible isolates. [facility] GLUCOSE (AUTOMATED)2022-12-12 13:43:09* Test Item Value Reference Range Interpretation Comme nts POCT GLU (test code = 6097883029) 140 mg/dL 70-110 H Lab Interpretation (test cod e = 00792-6) Abnormal [facility] GLUCOSE (AUTOMATED)2022-12-12 13:43:09* Test Item Value Reference Range Interpretation Comme nts POCT GLU (test code = 2677906745) 140 mg/dL 70-110 H Lab Interpretation (test cod e = 12974-5) Abnormal [facility] GLUCOSE (AUTOMATED)2022-12-12 02:45:08* Test Item Value Reference Range Interpretation Comme nts POCT GLU (test code = 5403091701) 111 mg/dL 70-110 H Lab Interpretation (test cod e = 17174-7) Abnormal [facility] GLUCOSE (AUTOMATED)2022-12-12 02:45:08* Test Item Value Reference Range Interpretation Comme nts POCT GLU (test code = 0172995045) 111 mg/dL 70-110 H Lab Interpretation (test cod e = 62834-4) Abnormal [facility] GLUCOSE (AUTOMATED)2022-12-11 22:48:34* Test Item Value Reference Range Interpretation Comme nts POCT GLU (test code = 3033478365) 96 mg/dL 70-110 Lab Interpretation (test cod e = 68611-0) Normal [facility] GLUCOSE (AUTOMATED)2022-12-11 22:48:34* Test Item Value Reference Range Interpretation Comme nts POCT GLU (test code = 1485887430) 96 mg/dL 70-110 Lab Interpretation (test cod e = 71031-8) Normal [facility] GLUCOSE (AUTOMATED)2022-12-11 17:59:33* Test Item Value Reference Range Interpretation Comme nts POCT GLU (test code = 3516595702) 112 mg/dL 70-110 H Lab Interpretation (test cod e = 11123-1) Abnormal [facility] GLUCOSE (AUTOMATED)2022-12-11 17:59:33* Test Item Value Reference Range Interpretation Comme nts POCT GLU (test code = 0366701162) 112 mg/dL 70-110 H Lab Interpretation (test cod e = 01485-3) Abnormal [facility] Culture - Peripheral # [id number] 14:08:35* Test Item Value Reference Range Interpretation Comme [facility] Blood Culture-Aerobic (test code = 13324-9) No organisms isolated No growth Previous preliminary verified result was Culture In Progress on 12/09/2022 at 0215 [employer]PAIRS [employer]PARER Blood Culture-Anaerobic (test code = 56001-4) Culture positive. See Blood Culture Workup for additional information. No growth AA Previous preliminary verified result was Culture In Progress on 12/08/2022 at 1701 SAM[employer] AND REPAIRS PREPARER Lab Interpretation (test code = 92331-6) Abnormal [facility] Culture - Peripheral # [id number] 14:08:35* Test Item Value Reference Range Interpretation Comme [facility] Blood Culture-Aerobic (test code = 42291-0) No organisms isolated No growth Previous preliminary verified result was Culture In Progress on 12/09/2022 at 0215 [employer]PAIRS [employer]PARER Blood Culture-Anaerobic (test code = 13541-5) Culture positive. See Blood Culture Workup for additional information. No growth AA Previous preliminary verified result was Culture In Progress on 12/08/2022 at 1701 SAM[employer] AND REPAIRS PREPARER Lab Interpretation (test code = 63485-7) Abnormal [facility] CULTURE [id number] 14:08:25* Test Item Value Reference Range Interpretation Comme [facility] Blood Culture Workup (test code = 600-7) [...] the extremely rare nature of non-susceptible isolates. [facility] CULTURE [id number] 14:08:25* Test Item Value Reference Range Interpretation Comme [facility] Blood Culture Workup (test code = 600-7) [...] the extremely rare nature of non-susceptible isolates. [facility] GLUCOSE (AUTOMATED)2022-12-11 13:49:53* Test Item Value Reference Range Interpretation Comme nts POCT GLU (test code = 9084504471) 149 mg/dL 70-110 H Lab Interpretation (test cod e = 84307-3) Abnormal [facility] GLUCOSE (AUTOMATED)2022-12-11 13:49:53* Test Item Value Reference Range Interpretation Comme nts POCT GLU (test code = 8144910475) 149 mg/dL 70-110 H Lab Interpretation (test cod e = 21178-9) Abnormal [facility] GLUCOSE (AUTOMATED)2022-12-11 03:04:50* Test Item Value Reference Range Interpretation Comme nts POCT GLU (test code = 1404920294) 120 mg/dL 70-110 H Lab Interpretation (test cod e = 93808-1) Abnormal [facility] GLUCOSE (AUTOMATED)2022-12-11 03:04:50* Test Item Value Reference Range Interpretation Comme nts POCT GLU (test code = 9073590228) 120 mg/dL 70-110 H Lab Interpretation (test cod e = 72363-2) Abnormal [facility] GLUCOSE (AUTOMATED)2022-12-10 23:26:44* Test Item Value Reference Range Interpretation Comme nts POCT GLU (test code = 6467194622) 202 mg/dL 70-110 H Lab Interpretation (test cod e = 36007-4) Abnormal [facility] GLUCOSE (AUTOMATED)2022-12-10 23:26:44* Test Item Value Reference Range Interpretation Comme nts POCT GLU (test code = 2543358261) 202 mg/dL 70-110 H Lab Interpretation (test cod e = 83529-9) Abnormal [facility] GLUCOSE (AUTOMATED)2022-12-10 21:54:23* Test Item Value Reference Range Interpretation Comme nts POCT GLU (test code = 8419625539) 194 mg/dL 70-110 H Lab Interpretation (test cod e = 87939-3) Abnormal [facility] GLUCOSE (AUTOMATED)2022-12-10 21:54:23* Test Item Value Reference Range Interpretation Comme nts POCT GLU (test code = 8937897513) 194 mg/dL 70-110 H Lab Interpretation (test cod e = 41245-4) Abnormal [facility] GLUCOSE (AUTOMATED)2022-12-10 19:05:27* Test Item Value Reference Range Interpretation Comme nts POCT GLU (test code = 8744952861) 187 mg/dL 70-110 H Lab Interpretation (test cod e = 43983-3) Abnormal [facility] GLUCOSE (AUTOMATED)2022-12-10 19:05:27* Test Item Value Reference Range Interpretation Comme nts POCT GLU (test code = 4331835973) 187 mg/dL 70-110 H Lab Interpretation (test cod e = 55713-3) [facility] - Draw within 30 minutes prior to dose on 12/10 @ [id number] 12:08:12* Test Item Value Reference Range Interpretation Comme nts VANCO TROUGH (test code = 0902888901) 18.5 ug/mL 10.0-20.0 SHIKHA (test code = SHIKHA) Toxic Range: ?>20 ug/mL 15-20 ug/mL is recommended for severe infection or when Vancomycin TERRANCE is greater than or equal to 2. Lab Interpretation (test code = 78575-5) Normal [facility] - Draw within 30 minutes prior to dose on 12/10 @ [id number] 12:08:12* Test Item Value Reference Range Interpretation Comme nts VANCO TROUGH (test code = 3948294939) 18.5 ug/mL 10.0-20.0 SHIKHA (test code = SHIKHA) Toxic Range: ?>20 ug/mL 15-20 ug/mL is recommended for severe infection or when Vancomycin TERRANCE is greater than or equal to 2. Lab Interpretation (test code = 59757-0) Normal [facility] CenterSED[facility] [id number] 11:12:07* Test Item Value Reference Range Interpretation Comme nts ESR (test code = 94432-2) See_Comment H [Automated Passworksa ge] The system which generated this result transmitted reference range: 0 - 15 mm/HR. The reference range was not used to interpret this result as normal/abnormal. Lab Interpretation (test code = 74573-8) [facility]normal [facility] Center[facility]ED[facility] [id number] 11:12:07* Test Item Value Reference Range Interpretation Comme nts ESR (test code = 24586-9) See_Comment H [Automated messa ge] The system which generated this result transmitted reference range: 0 - 15 mm/HR. The reference range was not used to interpret this result as normal/abnormal. Lab Interpretation (test code = 03286-0) Abnormal [facility] CenterGLYCOSYLATED HEMOGLOBIN (A1C)2022-12-10 11:01:45* Test Item Value Reference Range Interpretation Comme nts HGB A1C (test code = 4548-4) 12.1 % 4.0-5.7 H SHIKHA (test code = SHIKHA) Reference RangesNormal: <5.7%Prediabetes: 5.7 - 6.4%Diabetes: > 6.5% Lab Interpretation (test code = 36989-7) Abnormal [facility] Center[facility]YCOSYLATED HEMOGLOBIN (A1C)2022-12-10 11:01:45* Test Item Value Reference Range Interpretation Comme nts HGB A1C (test code = 4548-4) 12.1 % 4.0-5.7 H SHIKHA (test code = SHIKHA) Reference RangesNormal: <5.7%Prediabetes: 5.7 - 6.4%Diabetes: > 6.5% Lab Interpretation (test code = 52733-3) Abnormal [facility] GLUCOSE (AUTOMATED)2022-12-10 02:34:56* Test Item Value Reference Range Interpretation Comme nts POCT GLU (test code = 3137946580) 120 mg/dL 70-110 H Lab Interpretation (test cod e = 89988-1) Abnormal [facility] GLUCOSE (AUTOMATED)2022-12-10 02:34:56* Test Item Value Reference Range Interpretation Comme nts POCT GLU (test code = 8194273283) 120 mg/dL 70-110 H Lab Interpretation (test cod e = 26286-0) Abnormal [facility] GLUCOSE (AUTOMATED)2022-12-10 00:03:38* Test Item Value Reference Range Interpretation Comme nts POCT GLU (test code = 8695897995) 110 mg/dL 70-110 Lab Interpretation (test cod e = 81131-5) Normal [facility] GLUCOSE (AUTOMATED)2022-12-10 00:03:38* Test Item Value Reference Range Interpretation Comme nts POCT GLU (test code = 0809453013) 110 mg/dL 70-110 Lab Interpretation (test cod e = 65306-4) Normal [facility] GLUCOSE (AUTOMATED)2022-12-09 22:59:26* Test Item Value Reference Range Interpretation Comme nts POCT GLU (test code = 2873269257) 67 mg/dL 70-110 L Lab Interpretation (test cod e = 79236-8) Abnormal [facility] GLUCOSE (AUTOMATED)2022-12-09 22:59:26* Test Item Value Reference Range Interpretation Comme nts POCT GLU (test code = 2470172138) 67 mg/dL 70-110 L Lab Interpretation (test cod e = 83544-5) Abnormal [facility] POSITIVE BLOOD PATHOGENS DNA [id number] 22:24:58* Test Item Value Reference Range Interpretation Comme nts Streptococcus agalactiae (test code = 59578-5) Positive Negative, See Comment/Narrative A SHIKHA (test code = SHIKHA) Streptococcus agalactiae detected by DNA probe. Preferred therapy for Streptococcus agalactiae bacteremia is penicillin G or ampicillin. In accordance with CLSI M100 guidelines, susceptibility testing ofpenicillin and other beta-lactams need not be performed due tothe extremely rare nature of non-susceptible isolates. Please contact the Antimicrobial Stewardship Program with questions.ASP Pager: ?[phone] See blood culture results for additional information. Testing included eleven identification and three resistance marker targets. Lab Interpretation (test code = 46267-5) Abnormal [facility] POSITIVE BLOOD PATHOGENS DNA [id number] 22:24:58* Test Item Value Reference Range Interpretation Comme nts Streptococcus agalactiae (test code = 16675-1) Positive Negative, See Comment/Narrative A SHIKHA (test code = SHIKHA) Streptococcus agalactiae detected by DNA probe. Preferred therapy for Streptococcus agalactiae bacteremia is penicillin G or ampicillin. In accordance with CLSI M100 guidelines, susceptibility testing ofpenicillin and other beta-lactams need not be performed due tothe extremely rare nature of non-susceptible isolates. Please contact the Antimicrobial Stewardship Program with questions.ASP Pager: ?[phone] See blood culture results for additional information. Testing included eleven identification and three resistance marker targets. Lab Interpretation (test code = 60738-6) Abnormal [facility]-REACTIVE [id number] 18:24:15* Test Item Value Reference Range Interpretation Comme nts CRP (test code = 1747507912) 13.1 mg/dL <=1.0 H Lab Interpretation (test cod e = 51323-3) Abnormal [facility]-REACTIVE [id number] 18:24:15* Test Item Value Reference Range Interpretation Comme nts CRP (test code = 6763050938) 13.1 mg/dL <=1.0 H Lab Interpretation (test cod e = 42709-2) Abnormal [facility] GLUCOSE (AUTOMATED)2022-12-09 17:53:21* Test Item Value Reference Range Interpretation Comme nts POCT GLU (test code = 1301809283) 191 mg/dL 70-110 H Lab Interpretation (test cod e = 98615-8) Abnormal [facility] GLUCOSE (AUTOMATED)2022-12-09 17:53:21* Test Item Value Reference Range Interpretation Comme nts POCT GLU (test code = 9438316739) 191 mg/dL 70-110 H Lab Interpretation (test cod e = 52444-1) Abnormal [facility] GLUCOSE (AUTOMATED)2022-12-09 14:15:06* Test Item Value Reference Range Interpretation Comme nts POCT GLU (test code = 0759572098) 251 mg/dL 70-110 H Lab Interpretation (test cod e = 46167-0) Abnormal [facility]2022-12-09 14:15:06* Test Item Value Reference Range Interpretation Comme nts POCT GLU (test code = 0069932831) 251 mg/dL 70-110 H Lab Interpretation (test cod e = 79253-9) Abnormal [facility] Metabolic Panel (NA, K, CL, CO2, GLUCOSE, BUN, CREATININE, CA)2022-12-09 11:03:07* Test Item Value Reference Range Interpretation Comme [facility] NA (test code = 7857743800) 137 mmol/L 135-145 K (test code = 7064945890) 4.0 mmol/L 3.5-5.0 CL (test code = 0365158489) 104 mmol/L 98-108 CO2 TOTAL (test code = 5892480343) 27 mmol/L 23-31 AGAP (test code = 9942084978) 6 2-16 BUN (test code = 4377290721) 22 mg/dL 7-23 GLUCOSE (test code = 5461431247) 277 mg/dL 70-110 H CREATININE (test code = 2610711022) 1.48 mg/dL 0.60-1.25 H CALCIUM (test code = 6440769989) 8.3 mg/dL 8.6-10.6 L eGFR (test code = 5945414333) 48.8 mL/min/1.73m2 SHIKHA (test code = SHIKHA) [...] imaging tests). Lab Interpretation (test code = 37095-1) Abnormal [facility] Metabolic Panel (NA, K, CL, CO2, GLUCOSE, BUN, CREATININE, CA)2022-12-09 11:03:07* Test Item Value Reference Range Interpretation Comme nts NA (test code = 6607747804) 137 mmol/L 135-145 K (test code = 4515823868) 4.0 mmol/L 3.5-5.0 CL (test code = 2673310154) 104 mmol/L 98-108 CO2 TOTAL (test code = 3755125610) 27 mmol/L 23-31 AGAP (test code = 7542518899) 6 2-16 BUN (test code = 2911474725) 22 mg/dL 7-23 GLUCOSE (test code = 0892193574) 277 mg/dL 70-110 H CREATININE (test code = 4468635094) 1.48 mg/dL 0.60-1.25 H CALCIUM (test code = 8459443670) 8.3 mg/dL 8.6-10.6 L eGFR (test code = 7848673910) 48.8 mL/min/1.73m2 SHIKHA (test code = SHIKHA) [...] imaging tests). Lab Interpretation (test code = 34268-1) Abnormal [facility] with [id number] 10:47:49* Test Item Value Reference Range Interpretation Comme nts WBC (test code = 6690-2) 10.15 See_Comment [Automated nfon] The system which generated this result transmitted reference range: 4.20 - 10.70 10*3/?L. The reference range was not used to interpret this result as normal/abnormal. RBC (test code = 789-8) 3.63 See_Comment L [Automated nfon] The system which generated this result transmitted [...] 33.4 g/dL 31.2-35.0 RDW-SD (test code = 18714-3) 40.1 fL 38.5-51.6 RDW-CV (test code = 788-0) 12.8 % 12.1-15.4 PLT (test code = 777-3) 350 See_Comment H [Automated messa ge] The system which generated this result transmitted reference range: 150 - 328 10*3/?L. The reference range was not used to interpret this result as normal/abnormal. MPV (test code = 22680-4) 10.7 fL 9.8-13.0 NRBC/100 WBC (test code = 1105938152) 0.0 See_Comment [Automated Little1 ssage] The system which generated this result transmitted reference range: 0.0 - 10.0 /100 WBCs. The reference range was not used to interpret this result as normal/abnormal. NRBC x10^3 (test code = 8368047890) See_Comment [Automated Passworksa ge] The system which generated this result transmitted reference range: 10*3/?L. The reference range was not used to interpret this result as normal/abnormal. GRAN MAT (NEUT) % (test code = 770-8) 67.0 % IMM GRAN % (test code = 2552342373) 0.60 % LYMPH % (test code = 736-9) 17.5 % MONO % (test code = 5905-5) 9.4 % EOS % (test code = 713-8) 4.7 % BASO % (test code = 706-2) 0.8 % GRAN MAT x10^3(ANC) (test code = 5238244410) 6.80 10*3/uL 1.99-6.95 IMM GRAN x10^3 (test code = 5875470456) 0.06 10*3/uL 0.00-0.06 LYMPH x10^3 (test code = 731-0) 1.78 10*3/uL 1.09-3.23 MONO x10^3 (test code = 742-7) 0.95 10*3/uL 0.36-1.02 EOS x10^3 (test code = 711-2) 0.48 10*3/uL 0.06-0.53 BASO x10^3 (test code = 704-7) 0.08 10*3/uL 0.01-0.09 Lab Interpretation (test code = 37743-9) Abnormal [facility] with [id number] 10:47:49* Test Item Value Reference Range Interpretation [...] 33.4 g/dL 31.2-35.0 RDW-SD (test code = 27689-3) 40.1 fL 38.5-51.6 RDW-CV (test code = 788-0) 12.8 % 12.1-15.4 PLT (test code = 777-3) 350 See_Comment H [Automated messa ge] The system which generated this result transmitted reference range: 150 - 328 10*3/?L. The reference range was not used to interpret this result as normal/abnormal. MPV (test code = 04028-2) 10.7 fL 9.8-13.0 NRBC/100 WBC (test code = 4986360452) 0.0 See_Comment [Automated me ssage] The system which generated this result transmitted reference range: 0.0 - 10.0 /100 WBCs. The reference range was not used to interpret this result as normal/abnormal. NRBC x10^3 (test code = 3083767896) See_Comment [Automated messa ge] The system which generated this result transmitted reference range: 10*3/?L. The reference range was not used to interpret this result as normal/abnormal. GRAN MAT (NEUT) % (test code = 770-8) 67.0 % IMM GRAN % (test code = 9483390730) 0.60 % LYMPH % (test code = 736-9) 17.5 % MONO % (test code = 5905-5) 9.4 % EOS % (test code = 713-8) 4.7 % BASO % (test code = 706-2) 0.8 % GRAN MAT x10^3(ANC) (test code = 4159831932) 6.80 10*3/uL 1.99-6.95 IMM GRAN x10^3 (test code = 4738418502) 0.06 10*3/uL 0.00-0.06 LYMPH x10^3 (test code = 731-0) 1.78 10*3/uL 1.09-3.23 MONO x10^3 (test code = 742-7) 0.95 10*3/uL 0.36-1.02 EOS x10^3 (test code = 711-2) 0.48 10*3/uL 0.06-0.53 BASO x10^3 (test code = 704-7) 0.08 10*3/uL 0.01-0.09 Lab Interpretation (test code = 66524-3) Abnormal [facility] GLUCOSE (AUTOMATED)2022-12-09 02:33:01* Test Item Value Reference Range Interpretation Comme nts POCT GLU (test code = 2089755021) 138 mg/dL 70-110 H Lab Interpretation (test cod e = 49035-7) Abnormal [facility] GLUCOSE (AUTOMATED)2022-12-09 02:33:01* Test Item Value Reference Range Interpretation Comme nts POCT GLU (test code = 5972308428) 138 mg/dL 70-110 H Lab Interpretation (test cod e = 94294-4) Abnormal [facility] GLUCOSE (AUTOMATED)2022-12-08 23:15:41* Test Item Value Reference Range Interpretation Comme nts POCT GLU (test code = 7812073464) 372 mg/dL 70-110 H Lab Interpretation (test cod e = 70391-8) Abnormal [facility] GLUCOSE (AUTOMATED)2022-12-08 23:15:41* Test Item Value Reference Range Interpretation Comme [facility] POCT GLU (test code = 9278252601) 372 mg/dL 70-110 H Lab Interpretation (test cod e = 33769-1) Abnormal [facility] METABOLIC PANEL (NA, K, CL, CO2, GLUCOSE, BUN, CREATININE, CA)2022-12-08 21:46:12* Test Item Value Reference Range Interpretation Comme [facility] NA (test code = 0437403576) 132 mmol/L 135-145 L K (test code = 3219419877) 4.8 mmol/L 3.5-5.0 CL (test code = 3762787658) 94 mmol/L 98-108 L CO2 TOTAL (test code = 3004768439) 28 mmol/L 23-31 AGAP (test code = 5862235331) 10 2-16 BUN (test code = 3811178190) 20 mg/dL 7-23 GLUCOSE (test code = 3323093219) 331 mg/dL 70-110 H CREATININE (test code = 9653846290) 1.21 mg/dL 0.60-1.25 CALCIUM (test code = 0086680674) 9.0 mg/dL 8.6-10.6 eGFR (test code = 0157596454) 61.6 mL/min/1.73m2 SHIKHA (test code = SHIKHA) [...] imaging tests). Lab Interpretation (test code = 40991-3) Abnormal [facility] METABOLIC PANEL (NA, K, CL, CO2, GLUCOSE, BUN, CREATININE, CA)2022-12-08 21:46:12* Test Item Value Reference Range Interpretation Comme nts NA (test code = 6755396252) 132 mmol/L 135-145 L K (test code = 9701694112) 4.8 mmol/L 3.5-5.0 CL (test code = 0033802810) 94 mmol/L 98-108 L CO2 TOTAL (test code = 8761563971) 28 mmol/L 23-31 AGAP (test code = 9246930259) 10 2-16 BUN (test code = 4030886573) 20 mg/dL 7-23 GLUCOSE (test code = 4929985943) 331 mg/dL 70-110 H CREATININE (test code = 0682225652) 1.21 mg/dL 0.60-1.25 CALCIUM (test code = 0570738171) 9.0 mg/dL 8.6-10.6 eGFR (test code = 1550947448) 61.6 mL/min/1.73m2 SHIKHA (test code = SHIKHA) [...] imaging tests). Lab Interpretation (test code = 13901-1) Abnormal [facility] WITH [id number] 20:02:08* Test Item Value Reference Range Interpretation Comme nts WBC (test code = 6690-2) 12.86 See_Comment H [Automated nfon] The system which generated this result transmitted reference range: 4.20 - 10.70 10*3/?L. The reference range was not used to interpret this result as normal/abnormal. RBC (test code = 789-8) 4.08 See_Comment L [Automated nfon] The system which generated this result transmitted [...] 34.0 g/dL 31.2-35.0 RDW-SD (test code = 94432-7) 38.9 fL 38.5-51.6 RDW-CV (test code = 788-0) 12.8 % 12.1-15.4 PLT (test code = 777-3) 414 See_Comment H [Automated messa ge] The system which generated this result transmitted reference range: 150 - 328 10*3/?L. The reference range was not used to interpret this result as normal/abnormal. MPV (test code = 39363-2) 11.1 fL 9.8-13.0 NRBC/100 WBC (test code = 1474506145) 0.0 See_Comment [Automated me ssage] The system which generated this result transmitted reference range: 0.0 - 10.0 /100 WBCs. The reference range was not used to interpret this result as normal/abnormal. NRBC x10^3 (test code = 1323582892) See_Comment [Automated messa ge] The system which generated this result transmitted reference range: 10*3/?L. The reference range was not used to interpret this result as normal/abnormal. GRAN MAT (NEUT) % (test code = 770-8) 75.7 % IMM GRAN % (test code = 4429419928) 1.10 % LYMPH % (test code = 736-9) 13.7 % MONO % (test code = 5905-5) 6.9 % EOS % (test code = 713-8) 2.1 % BASO % (test code = 706-2) 0.5 % GRAN MAT x10^3(ANC) (test code = 5821738859) 9.73 10*3/uL 1.99-6.95 H IMM GRAN x10^3 (test code = 5431448381) 0.14 10*3/uL 0.00-0.06 H LYMPH x10^3 (test code = 731-0) 1.76 10*3/uL 1.09-3.23 MONO x10^3 (test code = 742-7) 0.89 10*3/uL 0.36-1.02 EOS x10^3 (test code = 711-2) 0.27 10*3/uL 0.06-0.53 BASO x10^3 (test code = 704-7) 0.07 10*3/uL 0.01-0.09 Lab Interpretation (test code = 30010-7) Abnormal [facility] WITH [id number] 20:02:08* Test Item Value Reference Range Interpretation [...] 34.0 g/dL 31.2-35.0 RDW-SD (test code = 60951-7) 38.9 fL 38.5-51.6 RDW-CV (test code = 788-0) 12.8 % 12.1-15.4 PLT (test code = 777-3) 414 See_Comment H [Automated messa ge] The system which generated this result transmitted reference range: 150 - 328 10*3/?L. The reference range was not used to interpret this result as normal/abnormal. MPV (test code = 70065-0) 11.1 fL 9.8-13.0 NRBC/100 WBC (test code = 4307558320) 0.0 See_Comment [Automated me ssage] The system which generated this result transmitted reference range: 0.0 - 10.0 /100 WBCs. The reference range was not used to interpret this result as normal/abnormal. NRBC x10^3 (test code = 9484704815) See_Comment [Automated messa ge] The system which generated this result transmitted reference range: 10*3/?L. The reference range was not used to interpret this result as normal/abnormal. GRAN MAT (NEUT) % (test code = 770-8) 75.7 % IMM GRAN % (test code = 7800840979) 1.10 % LYMPH % (test code = 736-9) 13.7 % MONO % (test code = 5905-5) 6.9 % EOS % (test code = 713-8) 2.1 % BASO % (test code = 706-2) 0.5 % GRAN MAT x10^3(ANC) (test code = 6854037360) 9.73 10*3/uL 1.99-6.95 H IMM GRAN x10^3 (test code = 9555722196) 0.14 10*3/uL 0.00-0.06 H LYMPH x10^3 (test code = 731-0) 1.76 10*3/uL 1.09-3.23 MONO x10^3 (test code = 742-7) 0.89 10*3/uL 0.36-1.02 EOS x10^3 (test code = 711-2) 0.27 10*3/uL 0.06-0.53 BASO x10^3 (test code = 704-7) 0.07 10*3/uL 0.01-0.09 Lab Interpretation (test code = 06121-7) Abnormal [facility] GLUCOSE (AUTOMATED)2022-12-08 19:53:43* Test Item Value Reference Range Interpretation Comme [facility] POCT GLU (test code = 9177841459) 353 mg/dL 70-110 H Lab Interpretation (test cod e = 92222-7) Abnormal [facility] GLUCOSE (AUTOMATED)2022-12-08 19:53:43* Test Item Value Reference Range Interpretation Comme [facility] POCT GLU (test code = 9196817384) 353 mg/dL 70-110 H Lab Interpretation (test cod e = 11123-5) [facility] 22:31:51 ALCOHOL<10mg/dL12/01/2022 4:31 PM [facility]10 Sdllmpjy48-003 Toxic>100 Depression of [employer]>400 Fatal[facility]UnB[facility] CenterCOMP. METABOLIC PANEL (30441)2022-12-01 22:27:29* Test Item Value Reference Range Interpretation Comme nts NA (test code = 6052680676) 129 mmol/L 135-145 L K (test code = 9852003328) 4.4 mmol/L 3.5-5.0 CL (test code = 4968637089) 94 mmol/L 98-108 L CO2 TOTAL (test code = 8720685470) 22 mmol/L 23-31 L AGAP (test code = 5072774191) 2-16 BUN (test code = 1197302504) 22 mg/dL 7-23 GLUCOSE (test code = 9397374288) 445 mg/dL 70-110 H CREATININE (test code = 5816550308) 1.08 mg/dL 0.60-1.25 TOTAL BILI (test code = 1764196662) 2.5 mg/dL 0.1-1.1 H CALCIUM (test code = 9834816626) 8.6 mg/dL 8.6-10.6 T PROTEIN (test code = 6723572629) 7.7 g/dL 6.3-8.2 ALBUMIN (test code = 7016752732) 4.1 g/dL 3.5-5.0 ALK PHOS (test code = 1328843679) 89 U/L 34-122 ALTv (test code = 1742-6) 19 U/L 5-50 AST(SGOT) (test code = 8219195671) 25 U/L 13-40 eGFR (test code = 5353273222) mL/min/1.73m2 SHIKHA (test code = SHIKHA) Association [...] imaging tests). Lab Interpretation (test code = 00920-0) Abnormal [facility] WITH [id number] 22:13:08* Test Item Value Reference Range Interpretation [...] 34.4 g/dL 31.2-35.0 RDW-SD (test code = 01533-9) 40.9 fL 38.5-51.6 RDW-CV (test code = 788-0) 12.8 % 12.1-15.4 PLT (test code = 777-3) See_Comment [Automated message] The system which generated this result transmitted reference range: 150 - 328 10*3/?L. The reference range was not used to interpret this result as normal/abnormal. MPV (test code = 95720-8) 11.4 fL 9.8-13.0 NRBC/100 WBC (test code = 6260242819) See_Comment [Automated message] The system which generated this result transmitted reference range: 0.0 - 10.0 /100 WBCs. The reference range was not used to interpret this result as normal/abnormal. NRBC x10^3 (test code = 4548462653) See_Comment [Automated message] The system which generated this result transmitted reference range: 10*3/?L. The reference range was not used to interpret this result as normal/abnormal. GRAN MAT (NEUT) % (test code = 770-8) 85.2 % IMM GRAN % (test code = 4443848722) 0.50 % LYMPH % (test code = 736-9) 6.6 % MONO % (test code = 5905-5) 7.2 % EOS % (test code = 713-8) 0.2 % BASO % (test code = 706-2) 0.3 % GRAN MAT x10^3(ANC) (test code = 3737190903) 14.65 10*3/uL 1.99-6.95 H IMM GRAN x10^3 (test code = 3544377671) 0.09 10*3/uL 0.00-0.06 H LYMPH x10^3 (test code = 731-0) 1.13 10*3/uL 1.09-3.23 MONO x10^3 (test code = 742-7) 1.24 10*3/uL 0.36-1.02 H EOS x10^3 (test code = 711-2) 0.03 10*3/uL 0.06-0.53 L BASO x10^3 (test code = 704-7) 0.05 10*3/uL 0.01-0.09 Lab Interpretation (test code = 83892-6) Abnormal [facility] GLUCOSE (AUTOMATED)2022-09-06 16:35:22* Test Item Value Reference Range Interpretation Comme nts POCT GLU (test code = 8127083284) 114 mg/dL 70-110 H Lab Interpretation (test cod e = 12625-2) Abnormal [facility] GLUCOSE (AUTOMATED)2022-09-06 12:42:35* Test Item Value Reference Range Interpretation Comme nts POCT GLU (test code = 7068416204) 113 mg/dL 70-110 H Lab Interpretation (test cod e = 54493-9) Abnormal [facility] GLUCOSE (AUTOMATED)2022-09-05 22:00:25* Test Item Value Reference Range Interpretation Comme nts POCT GLU (test code = 7353727285) 88 mg/dL 70-110 Lab Interpretation (test cod e = 36532-8) Normal [facility] GLUCOSE (AUTOMATED)2022-09-05 16:31:40* Test Item Value Reference Range Interpretation Comme nts POCT GLU (test code = 0232814688) 107 mg/dL 70-110 Lab Interpretation (test cod e = 03134-6) Normal [facility] GLUCOSE (AUTOMATED)2022-09-05 12:59:17* Test Item Value Reference Range Interpretation Comme nts POCT GLU (test code = 9753145063) 129 mg/dL 70-110 H Lab Interpretation (test cod e = 82429-5) Abnormal [facility] GLUCOSE (AUTOMATED)2022-09-05 01:23:51* Test Item Value Reference Range Interpretation Comme nts POCT GLU (test code = 4813277284) 114 mg/dL 70-110 H Lab Interpretation (test cod e = 93990-8) Abnormal [facility] GLUCOSE (AUTOMATED)2022-09-04 21:29:42* Test Item Value Reference Range Interpretation Comme nts POCT GLU (test code = 1665144362) 114 mg/dL 70-110 H Lab Interpretation (test cod e = 46458-6) Abnormal [facility] GLUCOSE (AUTOMATED)2022-09-04 17:05:19* Test Item Value Reference Range Interpretation Comme nts POCT GLU (test code = 7214178026) 120 mg/dL 70-110 H Lab Interpretation (test cod e = 20119-4) Abnormal [facility] GLUCOSE (AUTOMATED)2022-09-04 12:50:59* Test Item Value Reference Range Interpretation Comme nts POCT GLU (test code = 4876664703) 123 mg/dL 70-110 H Lab Interpretation (test cod e = 61576-0) [facility] 07:26:56* Test Item Value Reference Range Interpretation Comme nts POCT GLU (test code = 7753110980) 117 mg/dL 70-110 H Lab Interpretation (test cod e = 36594-2) Abnormal [facility] GLUCOSE (AUTOMATED)2022-09-04 01:30:15* Test Item Value Reference Range Interpretation Comme nts POCT GLU (test code = 3357045323) 113 mg/dL 70-110 H Lab Interpretation (test cod e = 04584-5) Abnormal [facility] GLUCOSE (AUTOMATED)2022-09-03 22:02:15* Test Item Value Reference Range Interpretation Comme nts POCT GLU (test code = 4481989170) 166 mg/dL 70-110 H Lab Interpretation (test cod e = 88647-9) Abnormal [facility] GLUCOSE (AUTOMATED)2022-09-03 17:25:06* Test Item Value Reference Range Interpretation Comme nts POCT GLU (test code = 6949921853) 220 mg/dL 70-110 H Lab Interpretation (test cod e = 55971-8) Abnormal [facility] GLUCOSE (AUTOMATED)2022-09-03 13:31:21* Test Item Value Reference Range Interpretation Comme nts POCT GLU (test code = 9813788055) 149 mg/dL 70-110 H Notified Provide r Lab Interpretation (test code = 13401-7) Abnormal [facility] GLUCOSE (AUTOMATED)2022-09-03 13:31:16* Test Item Value Reference Range Interpretation Comme nts POCT GLU (test code = 9796071858) 147 mg/dL 70-110 H Lab Interpretation (test cod e = 03148-0) Abnormal [facility] GLUCOSE (AUTOMATED)2022-09-03 13:26:23* Test Item Value Reference Range Interpretation Comme nts POCT GLU (test code = 9155348084) 253 mg/dL 70-110 H Lab Interpretation (test cod e = 82540-3) Abnormal [facility] CenterN-TERMINAL [id number] 08:52:29* Test Item Value Reference Range Interpretation Comme nts NT-proBNP (test code = 2939016876) 450 pg/mL See_Comment H [Automated message] The system which generated this result transmitted reference range: <=125. The reference range was not used to interpret this result as normal/abnormal. SHIKHA (test code = SHIKHA) Biotin has been reported to cause a negative bias, interpret results relative to patient's use of biotin. Lab Interpretation (test code = 46734-6) Abnormal [facility] CenterPHOSPHORUS2022-10-31 08:40:49* Test Item Value Reference Range Interpretation Comme nts PHOSPHORUS (test code = 1869172951) 3.8 mg/dL 2.5-5.0 Lab Interpretation (test cod e = 85817-5) Normal [facility] GLUCOSE (AUTOMATED)2022-09-03 01:41:52* Test Item Value Reference Range Interpretation Comme nts POCT GLU (test code = 4571870608) 204 mg/dL 70-110 H Lab Interpretation (test cod e = 23270-3) Abnormal [facility] GLUCOSE (AUTOMATED)2022-09-02 23:09:24* Test Item Value Reference Range Interpretation Comme nts POCT GLU (test code = 7434040804) 207 mg/dL 70-110 H Lab Interpretation (test cod e = 25416-5) Abnormal [facility] CenterPROCALCITONIN2022-10-30 20:46:20* Test Item Value Reference Range Interpretation Comments Procalcitonin (test code = 5002083357) 0.12 ng/mL See_Comment H [Automated message] The [...] lung abscess/empyema. For further information please refer to:[email or web address] Lab Interpretation (test code = 87633-2) Abnormal [facility] CenterC-REACTIVE [id number] 20:34:16* Test Item Value Reference Range Interpretation Comme nts CRP (test code = 5622400006) 12.7 mg/dL See_Comment H [Automated messa ge] The system which generated this result transmitted reference range: <=0.8. The reference range was not used to interpret this result as normal/abnormal. Lab Interpretation (test code = 91504-6) Abnormal [facility] GLUCOSE (AUTOMATED)2022-09-02 17:41:56* Test Item Value Reference Range Interpretation Comme nts POCT GLU (test code = 0882890318) 148 mg/dL 70-110 H Lab Interpretation (test cod e = 42100-7) Abnormal [facility] GLUCOSE (AUTOMATED)2022-09-02 16:53:05* Test Item Value Reference Range Interpretation Comme nts POCT GLU (test code = 5896075726) 49 mg/dL 70-110 LL Lab Interpretation (test cod e = 13193-9) Abnormal [facility] GLUCOSE (AUTOMATED)2022-09-02 16:53:05* Test Item Value Reference Range Interpretation Comme nts POCT GLU (test code = 6590866153) 54 mg/dL 70-110 L Lab Interpretation (test cod e = 44050-6) Abnormal [facility] GLUCOSE (AUTOMATED)2022-09-02 16:46:52* Test Item Value Reference Range Interpretation Comme nts POCT GLU (test code = 4285587922) 56 mg/dL 70-110 L Lab Interpretation (test cod e = 01084-4) Abnormal [facility] CenterSEDIMENTATION [id number] 13:27:19* Test Item Value Reference Range Interpretation Comme nts ESR (test code = 14124-4) See_Comment H [Automated messa ge] The system which generated this result transmitted reference range: 0 - 10 mm/HR. The reference range was not used to interpret this result as normal/abnormal. Lab Interpretation (test code = 86902-6) Abnormal [facility] CenterGLYCOSYLATED HEMOGLOBIN (A1C)2022-09-02 12:46:05* Test Item Value Reference Range Interpretation Comme nts HGB A1C (test code = 4548-4) 10.6 % 4.0-5.7 H SHIKHA (test code = SHIKHA) Reference RangesNormal: <5.7%Prediabetes: 5.7 - 6.4%Diabetes: > 6.5% Lab Interpretation (test code = 19131-3) Abnormal [facility] CenterFERRITIN [id number] 12:45:00* Test Item Value Reference Range Interpretation Comme nts FERRITIN (test code = 5337024135) 143.0 ng/mL 18.0-464.0 SHIKHA (test code = SHIKHA) Biotin has been reported to cause a negative bias, interpret results relative to patient's use of biotin. Lab Interpretation (test code = 03407-3) Normal [facility] CenterIRON [id number] 12:18:58* Test Item Value Reference Range Interpretation Comme nts IRON (test code = 8242758573) 23 ug/dL 50-160 L TIBC (test code = 0497672225) 250 ug/dL 250-410 % FE SAT (test code = 2693685946) 9 % 20-50 L Lab Interpretation (test cod e = 33575-5) Abnormal [facility] CenterMAGNESIUM2022-10-30 12:09:57* Test Item Value Reference Range Interpretation Comme nts MAGNESIUM (test code = 0952409416) 1.6 mg/dL 1.7-2.4 L Lab Interpretation (test cod e = 21022-9) Abnormal [facility] CenterLipid Panel (Total Cholesterol, Triglycerides, HDL) - [id number] 12:09:57* Test Item Value Reference Range Interpretation Comme nts CHOL (test code = 0034712966) 205 mg/dL 120-200 H HDL (test code = 6829298134) 42 mg/dL See_Comment [Automated [employer]] The system which generated this result transmitted reference range: >=40. The reference range was not used to interpret this result as normal/abnormal. HDLC RATIO (test code = 8933754336) See_Comment [Automated [employer]] The system which generated this result transmitted reference range: <=5.0. The reference range was not used to interpret this result as normal/abnormal. TRIG (test code = 6777624507) 127 mg/dL 30-170 LDL CHOL (test code = 98382-5) 138 mg/dL See_Comment [Automated [employer]] The system which generated this result transmitted reference range: <=160. The reference range was not used to interpret this result as normal/abnormal. VLDL (test code = 6961586567) 25 mg/dL 5-60 Lab Interpretation (test code = 55035-2) Abnormal [facility] CenterURIC [id number] 12:09:42* Test Item Value Reference Range Interpretation Comme nts URIC ACID (test code = 5516187763) 8.4 mg/dL 3.6-8.0 H Lab Interpretation (test cod e = 73322-6) Abnormal [facility] CenterCOMP. METABOLIC PANEL (22533)2022-09-02 08:21:42* Test Item Value Reference Range Interpretation Comme nts NA (test code = 2722082583) 133 mmol/L 135-145 L K (test code = 2349834309) 4.3 mmol/L 3.5-5.0 CL (test code = 2079697835) 98 mmol/L 98-108 CO2 TOTAL (test code = 8916158081) 25 mmol/L 23-31 AGAP (test code = 1523283726) 2-16 BUN (test code = 7720362897) 15 mg/dL 7-23 GLUCOSE (test code = 4617359626) 318 mg/dL 70-110 H CREATININE (test code = 4134612005) 1.20 mg/dL 0.60-1.25 TOTAL BILI (test code = 1404029583) 0.9 mg/dL 0.1-1.1 CALCIUM (test code = 0603996311) 9.2 mg/dL 8.6-10.6 T PROTEIN (test code = 8661270680) 7.4 g/dL 6.3-8.2 ALBUMIN (test code = 6561458351) 4.1 g/dL 3.5-5.0 ALK PHOS (test code = 9155024933) 96 U/L 34-122 ALTv (test code = 1742-6) 13 U/L 5-50 AST(SGOT) (test code = 5210035100) 17 U/L 13-40 eGFR (test code = 3282726560) mL/min/1.73m2 SHIKHA (test code = SHIKHA) Association [...] imaging tests). Lab Interpretation (test code = 09346-9) Abnormal [facility] WITH [id number] 08:09:40* Test Item Value Reference Range Interpretation Comme nts WBC (test code = 6690-2) See_Comment H [Automated nfon] The system which generated this result transmitted reference range: 4.20 - 10.70 10*3/?L. The reference range was not used to interpret this result as normal/abnormal. RBC (test code = 789-8) See_Comment L [Automated nfon] The system which generated this result transmitted [...] g/dL 31.2-35.0 H RDW-SD (test code = 02514-9) 37.6 fL 38.5-51.6 L RDW-CV (test code = 788-0) 12.4 % 12.1-15.4 PLT (test code = 777-3) See_Comment H [Automated messa ge] The system which generated this result transmitted reference range: 150 - 328 10*3/?L. The reference range was not used to interpret this result as normal/abnormal. MPV (test code = 40824-0) 10.8 fL 9.8-13.0 NRBC/100 WBC (test code = 8364988037) See_Comment [Automated Little1 ssage] The system which generated this result transmitted reference range: 0.0 - 10.0 /100 WBCs. The reference range was not used to interpret this result as normal/abnormal. NRBC x10^3 (test code = 2117113507) See_Comment [Automated Passworksa ge] The system which generated this result transmitted reference range: 10*3/?L. The reference range was not used to interpret this result as normal/abnormal. GRAN MAT (NEUT) % (test code = 770-8) 65.6 % IMM GRAN % (test code = 5792247017) 0.50 % LYMPH % (test code = 736-9) 21.4 % MONO % (test code = 5905-5) 9.5 % EOS % (test code = 713-8) 2.4 % BASO % (test code = 706-2) 0.6 % GRAN MAT x10^3(ANC) (test code = 4702226258) 7.56 10*3/uL 1.99-6.95 H IMM GRAN x10^3 (test code = 6844727234) 0.06 10*3/uL 0.00-0.06 LYMPH x10^3 (test code = 731-0) 2.46 10*3/uL 1.09-3.23 MONO x10^3 (test code = 742-7) 1.09 10*3/uL 0.36-1.02 H EOS x10^3 (test code = 711-2) 0.28 10*3/uL 0.06-0.53 BASO x10^3 (test code = 704-7) 0.07 10*3/uL 0.01-0.09 Lab Interpretation (test code = 25242-1) Abnormal [facility] CenterPO[facility] (AUTOMATED)2022-08-30 04:29:06* Test Item Value Reference Range Interpretation Comme [facility] POCT GLU (test code = 4891437916) 73 mg/dL 70-110 Lab Interpretation (test cod e = 41667-7) Normal [facility] CenterGLYCOSYLATED HEMOGLOBIN (A1C)2022-06-21 01:38:48* Test Item Value Reference Range Interpretation Comme [facility] HGB A1C (test code = 4548-4) 11.9 % 4-5.7 H SHIKHA (test code = SHIKHA) Reference RangesNormal: <5.7%Prediabetes: 5.7 - 6.4%Diabetes: > 6.5% Lab Interpretation (test code = 15510-0) Abnormal [facility] CenterCOMP. METABOLIC PANEL (25704)2022-06-21 01:08:38* Test Item Value Reference Range Interpretation Comme [facility] NA (test code = 3652301475) 124 mmol/L 135-145 L K (test code = 2422294251) 4.0 mmol/L 3.5-5 CL (test code = 6358580831) 90 mmol/L 98-108 L CO2 TOTAL (test code = 1862580175) 25 mmol/L 23-31 AGAP (test code = 5588410858) 2-16 BUN (test code = 3692087435) 22 mg/dL 7-23 GLUCOSE (test code = 2790456783) 327 mg/dL 70-110 H CREATININE (test code = 3397037420) 1.52 mg/dL 0.6-1.25 H TOTAL BILI (test code = 7924183806) 0.9 mg/dL 0.1-1.1 CALCIUM (test code = 1326158572) 8.2 mg/dL 8.6-10.6 L T PROTEIN (test code = 6108978097) 6.9 g/dL 6.3-8.2 ALBUMIN (test code = 2740535404) 3.9 g/dL 3.5-5 ALK PHOS (test code = 6514065138) 84 U/L 34-122 ALTv (test code = 1742-6) 17 U/L 5-50 AST(SGOT) (test code = 7404589274) 22 U/L 13-40 eGFR (test code = 9038882448) mL/min/1.73m2 SHIKHA (test code = SHIKHA) Association [...] imaging tests). Lab Interpretation (test code = 91428-8) Abnormal [facility] CenterLIPASE2022-08-18 01:08:18* Test Item Value Reference Range Interpretation Comme nts LIPASE (test code = 4286161543) 40 U/L 0-220 Lab Interpretation (test cod e = 49122-0) Normal [facility] WITH [id number] 00:59:54* Test Item Value Reference Range Interpretation [...] g/dL 31.2-35 H RDW-SD (test code = 00815-0) 36.7 fL 38.5-51.6 L RDW-CV (test code = 788-0) 12.1 % 12.1-15.4 PLT (test code = 777-3) See_Comment [Automated messa ge] The system which generated this result transmitted reference range: 150 - 328 10*3/?L. The reference range was not used to interpret this result as normal/abnormal. MPV (test code = 96977-6) 10.8 fL 9.8-13 NRBC/100 WBC (test code = 9915156009) See_Comment [Automated me ssage] The system which generated this result transmitted reference range: 0.0 - 10.0 /100 WBCs. The reference range was not used to interpret this result as normal/abnormal. NRBC x10^3 (test code = 2970161505) See_Comment [Automated messa ge] The system which generated this result transmitted reference range: 10*3/?L. The reference range was not used to interpret this result as normal/abnormal. GRAN MAT (NEUT) % (test code = 770-8) 66.0 % IMM GRAN % (test code = 0344342629) 0.30 % LYMPH % (test code = 736-9) 23.6 % MONO % (test code = 5905-5) 8.5 % EOS % (test code = 713-8) 0.9 % BASO % (test code = 706-2) 0.7 % GRAN MAT x10^3(ANC) (test code = 4226819180) 6.42 10*3/uL 1.99-6.95 IMM GRAN x10^3 (test code = 9764073064) 0.03 10*3/uL 0-0.06 LYMPH x10^3 (test code = 731-0) 2.30 10*3/uL 1.09-3.23 MONO x10^3 (test code = 742-7) 0.83 10*3/uL 0.36-1.02 EOS x10^3 (test code = 711-2) 0.09 10*3/uL 0.06-0.53 BASO x10^3 (test code = 704-7) 0.07 10*3/uL 0.01-0.09 Lab Interpretation (test code = 41893-2) Abnormal [facility] CenterCOMPREHENSIVE METABOLIC [id number] 05:04:53* Test Item Value Reference Range Interpretation Comme nts GLUCOSE (test code = 2217) 343 MG/DL 70-99 H BUN (test code = 2208) 28 MG/DL 6-20 H CREATININE (test code = 2214) 1.22 MG/DL 0.80-1.40 eGFR (2020 CKD-EPI) (test code = 26573) 69 ML/MIN/1.73 >60 CALC BUN/CREAT (test code = 2235) 23 RATIO 6-28 SODIUM (test code = 2231) 132 MEQ/L 133-146 L POTASSIUM (test code = 2228) 4.6 MEQ/L 3.5-5.4 CHLORIDE (test code = 2215) 97 MEQ/L 95-107 CARBON DIOXIDE (test code = 2206) 21 MEQ/L 19-31 CALCIUM (test code = 2209) 9.5 MG/DL 8.5-10.5 PROTEIN, TOTAL (test code = 2229) 7.6 G/DL 6.1-8.3 ALBUMIN (test code = 2201) 4.1 G/DL 3.5-5.2 CALC GLOBULIN (test code = 2240) 3.5 G/DL 1.9-3.7 CALC A/G RATIO (test code = 2234) 1.2 RATIO 1.0-2.6 BILIRUBIN, TOTAL (test code = 2207) 0.8 MG/DL See_Comment [Automated me ssage] The system which generated this result transmitted reference range: <=1.2. The reference range was not used to interpret this result as normal/abnormal. ALKALINE PHOSPHATASE (test code = 2203) 101 U/L 40-123 AST (test code = 2218) 14 U/L 9-50 ALT (test code = 2219) 12 U/L 5-50 LIPID [id number] 05:04:53* Test Item Value Reference Range Interpretation Comme nts CHOLESTEROL (test code = 2210) 205 MG/DL <200 H TRIGLYCERIDES (test code = 223) 260 MG/DL <150 H HDL CHOLESTEROL (test code = 2219) 50 MG/DL >39 CALC LDL CHOL (test code = 2236) 118 MG/DL <100 H NOTE: CALCULATED LDL IS BASED ON NEIL-HYLTON METHOD WHICHINCLUDES ADJUSTABLE TRIGLYCERIDE:VLDL CHOLESTEROL RATIO.THIS FACTOR VARIES BY MEASURED TRIGLYCERIDE AND NON-HDLCHOLESTEROL CONCENTRATIONS WITH INCREASED CALCULATED LDL SEENIN HIGHER TRIGLYCERIDE OR LOWER NON-HDL SPECIMENS. FOR MOREINFORMATION, SEE CLIENT ANNOUNCEMENT AT [email or web address] RATIO LDL/HDL (test code = 223) 2.36 RATIO <3.55 PSA, [id number] 03:59:12* Test Item Value Reference Range Interpretation Comme nts PSA, TOTAL (test code = 2606) 0.61 NG/ML See_Comment NOTE: Methodolog y is Jes Sunny Electrochemiluminescence Immunoassay traceable to WHO reference standard 96/760. UNLESS OTHERWISE INDICATED, ALL TESTING PERFORMED ATCLINImp[facility] [facility] [employer] [address] [place] [id number] HAULAGE BOSS: LUIS TEMPLETON M.D. CLIA NUMBER [id number] [place]. [id number] [Automated message] The system which generated this result transmitted reference range: <=4.00. The reference range was not used to interpret this result as normal/abnormal. HEMOGLOBIN [id number] 03:27:40* Test Item Value Reference Range Interpretation Comme nts HEMOGLOBIN A1c (test code = 97434) 11.6 % 4.2-5.6 H [employer] GUIDELINES FOR HGB A1C: [...] OR LABORATORY CONSULTATION. CBC W/AUTO DIFF WITH [id number] 03:22:30* Test Item Value Reference Range Interpretation [...] = 1065) 0.0 /100 WBC'S See_Comment [Automated [employer] ge] The system which generated this result [...] 0.00-0.10 ABS NUCLEATED RBCS (test code = 74989) 0.00 K/UL 0.00-0.11 HEMOGLOBIN [id number] 00:00:00* Test Item Value Reference Range Interpretation Comme nts HEMOGLOBIN A1c (test code = 17119) 11.6 % CBC W/AUTO [id number] 00:00:00* Test Item Value Reference Range Interpretation [...] ABS NUCLEATED RBCS (test cod e = 58999) 0.00 K/UL COMPREHENSIVE METABOLIC [id number] 00:00:00* Test Item Value Reference Range Interpretation Comme nts GLUCOSE (test code = 2217) 343 MG/DL BUN (test code = 2208) 28 MG/DL CREATININE (test code = 2214) 1.22 MG/DL eGFR (2020 CKD-EPI) (test co de = 41726) 69 ML/MIN/1.73 CALC BUN/CREAT (test code = [...] (test code = 2219) 12 U/L LIPID [id number] 00:00:00* Test Item Value Reference Range Interpretation Comme nts CHOLESTEROL (test code = 2210) 205 MG/DL TRIGLYCERIDES (test code = 2232) 260 MG/DL HDL CHOLESTEROL (test code = 2220) 50 MG/DL CALC LDL CHOL (test code = 2237) 118 MG/DL RISK RATIO LDL/HDL (test cod e = 2238) 2.36 RATIO PSA, [id number] 00:00:00* Test Item Value Reference Range Interpretation Comme nts PSA, TOTAL (test code = 2606) 0.61 NG/ML HEMOGLOBIN [id number] 00:00:00* Test Item Value Reference Range Interpretation Comme nts HEMOGLOBIN A1c (test code = 00835) 11.6 % CBC W/AUTO [id number] 00:00:00* Test Item Value Reference Range Interpretation [...] ABS NUCLEATED RBCS (test cod e = 42160) 0.00 K/UL COMPREHENSIVE METABOLIC [id number] 00:00:00* Test Item Value Reference Range Interpretation Comme nts GLUCOSE (test code = 2217) 343 MG/DL BUN (test code = 2208) 28 MG/DL CREATININE (test code = 2214) 1.22 MG/DL eGFR (2020 CKD-EPI) (test co de = 45837) 69 ML/MIN/1.73 CALC BUN/CREAT (test code = [...] (test code = 2219) 12 U/L LIPID [id number] 00:00:00* Test Item Value Reference Range Interpretation Comme nts CHOLESTEROL (test code = 2210) 205 MG/DL TRIGLYCERIDES (test code = 2232) 260 MG/DL HDL CHOLESTEROL (test code = 2220) 50 MG/DL CALC LDL CHOL (test code = 2237) 118 MG/DL RISK RATIO LDL/HDL (test cod e = 2238) 2.36 RATIO PSA, [id number] 00:00:00* Test Item Value Reference Range Interpretation Comme nts PSA, TOTAL (test code = 2606) 0.61 NG/ML POCT GLUCOSE (AUTOMATED)2022-02-22 17:01:00* Test Item Value Reference Range Interpretation Comme nts POCT GLU (test code = 2667006415) 115 mg/dL 70-110 H Lab Interpretation (test cod e = 42316-3) Abnormal [facility] GLUCOSE (AUTOMATED)2022-02-22 12:49:14* Test Item Value Reference Range Interpretation Comme nts POCT GLU (test code = 9729061256) 82 mg/dL 70-110 Lab Interpretation (test cod e = 07032-9) Normal [facility] WITH [id number] 11:36:10* Test Item Value Reference Range Interpretation [...] 33.9 g/dL 31.2-35.0 RDW-SD (test code = 98072-4) 38.8 fL 38.5-51.6 RDW-CV (test code = 788-0) 12.3 % 12.1-15.4 PLT (test code = 777-3) See_Comment [Automated messa ge] The system which generated this result transmitted reference range: 150 - 328 10*3/?L. The reference range was not used to interpret this result as normal/abnormal. MPV (test code = 68347-8) 11.7 fL 9.8-13.0 NRBC/100 WBC (test code = 2233545013) See_Comment [Automated Little[employer] ssage] The system which generated this result transmitted reference range: 0.0 - 10.0 /100 WBCs. The reference range was not used to interpret this result as normal/abnormal. NRBC x10^3 (test code = 4922121704) <0.01 See_Comment [Automated messa ge] The system which generated this result transmitted reference range: 10*3/?L. The reference range was not used to interpret this result as normal/abnormal. GRAN MAT (NEUT) % (test code = 770-8) 46.3 % IMM GRAN % (test code = 4113315000) 0.20 % LYMPH % (test code = 736-9) 37.7 % MONO % (test code = 5905-5) 9.4 % EOS % (test code = 713-8) 4.9 % BASO % (test code = 706-2) 1.5 % GRAN MAT x10^3(ANC) (test code = 7559310492) 2.71 10*3/uL 1.99-6.95 IMM GRAN x10^3 (test code = 3857218166) <0.03 0.00-0.06 LYMPH x10^3 (test code = 731-0) 2.21 10*3/uL 1.09-3.23 MONO x10^3 (test code = 742-7) 0.55 10*3/uL 0.36-1.02 EOS x10^3 (test code = 711-2) 0.29 10*3/uL 0.06-0.53 BASO x10^3 (test code = 704-7) 0.09 10*3/uL 0.01-0.09 Lab Interpretation (test code = 91911-3) Abnormal [facility] METABOLIC PANEL (NA, K, CL, CO2, GLUCOSE, BUN, CREATININE, CA)2022-02-22 11:11:25* Test Item Value Reference Range Interpretation Comme nts NA (test code = 0656388272) 138 mmol/L 135-145 K (test code = 2840826764) 3.3 mmol/L 3.5-5.0 L CL (test code = 0849675706) 103 mmol/L 98-108 CO2 TOTAL (test code = 0395235920) 28 mmol/L 23-31 AGAP (test code = 8193329548) 2-16 BUN (test code = 4774129229) 12 mg/dL 7-23 GLUCOSE (test code = 3676452065) 93 mg/dL 70-110 CREATININE (test code = 5679571059) 0.79 mg/dL 0.60-1.25 CALCIUM (test code = 5554825228) 7.9 mg/dL 8.6-10.6 L eGFR (test code = 6153211348) mL/min/1.73m2 SHIKHA (test code = SHIKHA) Association [...] imaging tests). Lab Interpretation (test code = 94452-3) Abnormal [facility] GLUCOSE (AUTOMATED)2022-02-22 02:35:32* Test Item Value Reference Range Interpretation Comme [facility] POCT GLU (test code = 9995443891) 146 mg/dL 70-110 H Lab Interpretation (test cod e = 54388-0) Abnormal [facility] GLUCOSE (AUTOMATED)2022-02-22 01:37:51* Test Item Value Reference Range Interpretation Comme [facility] POCT GLU (test code = 8545622984) 167 mg/dL 70-110 H Lab Interpretation (test cod e = 56499-6) [facility]AL[facility]2022[facility] 17:15:22* Test Item Value Reference Range Interpretation Comme [facility] Procalcitonin (test code = 4012978546) 0.04 ng/mL <0.07 SHIKHA (test code = [...] lung abscess/empyema. For further information please refer to:[email or web address] Lab Interpretation (test code = 12233-4) [facility])2022-02-21 17:08:12* Test Item Value Reference Range Interpretation Comme [facility] POCT GLU (test code = 1419570853) 135 mg/dL 70-110 H Lab Interpretation (test cod e = 96402-0) Abnormal [facility] CenterURIC [id number] 16:59:06* Test Item Value Reference Range Interpretation Comme nts URIC ACID (test code = 8410485484) 5.1 mg/dL 3.6-8.0 Lab Interpretation (test cod e = 25876-4) [facility] CenterPHOSPHORUS2022-04-20 16:59:06* Test Item Value Reference Range Interpretation Comme nts PHOSPHORUS (test code = 6638117276) 3.0 mg/dL 2.5-5.0 Lab Interpretation (test cod e = 54858-1) [facility] CenterLIPID PANEL (67472)(TOTAL CHOLESTEROL, TRIGLYCERIDES, HDL)2022-02-21 16:33:11* Test Item Value Reference Range Interpretation Comme nts CHOL (test code = 8904075341) 188 mg/dL 120-200 HDL (test code = 8553325145) 41 mg/dL >40 HDLC RATIO (test code = 0055053738) See_Comment [[employer]] The system which generated this result transmitted reference range: <=5.0. The reference range was not used to interpret this result as normal/abnormal. TRIG (test code = 5799117209) 135 mg/dL 30-170 LDL CHOL (test code = 68277-5) 120 mg/dL See_Comment [[employer]] The system which generated this result transmitted reference range: <=160. The reference range was not used to interpret this result as normal/abnormal. VLDL (test code = 9338724739) 27 mg/dL 5-60 Lab Interpretation (test code = 50029-8) [facility] CenterVITAMIN D, [id number] 15:40:21* Test Item Value Reference Range Interpretation Comme nts VIT D 25OH (test code = 03090-5) 13 ng/mL 25-80 L SHIKHA (test code = SHIKHA) Deficiency: <20 ng/mLInsufficiency: 20-24 ng/mLOptimal: 25-80 ng/mL Lab Interpretation (test code = 84715-8) Abnormal [facility] CenterC-REACTIVE [id number] 14:05:28* Test Item Value Reference Range Interpretation Comme nts CRP (test code = 3935725115) 1.7 mg/dL <0.8 H Lab Interpretation (test cod e = 54906-9) [facility]OMATED)2022-02-21 13:24:57* Test Item Value Reference Range Interpretation Comme nts POCT GLU (test code = 1031984135) 61 mg/dL 70-110 L Lab Interpretation (test cod e = 63901-6) [facility]normal [facility] CenterN-TERMINAL [id number] 10:27:39* Test Item Value Reference Range Interpretation Comme nts NT-proBNP (test code = 4589727026) 215 pg/mL See_Comment H [Automated message] The system which generated this result transmitted reference range: <=125. The reference range was not used to interpret this result as normal/abnormal. SHIKHA (test code = SHIKHA) Biotin has been reported to cause a negative bias, interpret results relative to patient's use of biotin. Lab Interpretation (test code = 85707-4) [facility] CenterMAGNESIUM2022-04-20 10:20:41* Test Item Value Reference Range Interpretation Comme nts MAGNESIUM (test code = 8482265184) 1.6 mg/dL 1.7-2.4 L Lab Interpretation (test cod e = 37256-3) Abnormal [facility] CenterCOMP. METABOLIC PANEL (81746)2022-02-21 10:20:41* Test Item Value Reference Range Interpretation Comme nts NA (test code = 5625323947) 138 mmol/L 135-145 K (test code = 4775285536) 3.5 mmol/L 3.5-5.0 CL (test code = 2965903374) 103 mmol/L 98-108 CO2 TOTAL (test code = 1938473035) 28 mmol/L 23-31 AGAP (test code = 3258261183) 2-16 BUN (test code = 9687902205) 13 mg/dL 7-23 GLUCOSE (test code = 8562851954) 190 mg/dL 70-110 H CREATININE (test code = 3178090569) 0.84 mg/dL 0.60-1.25 TOTAL BILI (test code = 1034778479) 0.9 mg/dL 0.1-1.1 CALCIUM (test code = 8003303962) 8.2 mg/dL 8.6-10.6 L T PROTEIN (test code = 1064781665) 6.3 g/dL 6.3-8.2 ALBUMIN (test code = 5801900469) 3.2 g/dL 3.5-5.0 L ALK PHOS (test code = 2425543305) 78 U/L 34-122 ALTv (test code = 1742-6) 11 U/L 5-50 AST(SGOT) (test code = 0401027972) 19 U/L 13-40 eGFR (test code = 4890053553) mL/min/1.73m2 SHIKHA (test code = SHIKHA) Association [...] imaging tests). Lab Interpretation (test code = 66785-7) Abnormal [facility] CenterPROTHROMBIN TIME / [id number] 10:09:15* Test Item Value Reference Range Interpretation Comme nts PROTIME PATIENT (test code = 5964-2) See_Comment [Automated messa ge] The system which generated this result transmitted reference range: 12.0 - 14.7 Seconds. The reference range was not used to interpret this result as normal/abnormal. INR (test code = 6301-6) Normal INR <1.1; Warfarin Therapeutic range 2.0 to 3.0 or 2.5 to 3.5, depending upon the indications. Lab Interpretation (test code = 89603-5) Normal [facility] CenterCBC WITH [id number] 09:56:36* Test Item Value Reference Range Interpretation [...] 34.3 g/dL 31.2-35.0 RDW-SD (test code = 45864-9) 38.2 fL 38.5-51.6 L RDW-CV (test code = 788-0) 12.5 % 12.1-15.4 PLT (test code = 777-3) See_Comment [Automated messa ge] The system which generated this result transmitted reference range: 150 - 328 10*3/?L. The reference range was not used to interpret this result as normal/abnormal. MPV (test code = 95116-4) 12.0 fL 9.8-13.0 NRBC/100 WBC (test code = 2724485523) See_Comment [Automated me ssage] The system which generated this result transmitted reference range: 0.0 - 10.0 /100 WBCs. The reference range was not used to interpret this result as normal/abnormal. NRBC x10^3 (test code = 2116414841) <0.01 See_Comment [Automated messa ge] The system which generated this result transmitted reference range: 10*3/?L. The reference range was not used to interpret this result as normal/abnormal. GRAN MAT (NEUT) % (test code = 770-8) 45.2 % IMM GRAN % (test code = 5416246271) 0.30 % LYMPH % (test code = 736-9) 37.5 % MONO % (test code = 5905-5) 10.2 % EOS % (test code = 713-8) 5.1 % BASO % (test code = 706-2) 1.7 % GRAN MAT x10^3(ANC) (test code = 8654082398) 2.64 10*3/uL 1.99-6.95 IMM GRAN x10^3 (test code = 1284534704) <0.03 0.00-0.06 LYMPH x10^3 (test code = 731-0) 2.20 10*3/uL 1.09-3.23 MONO x10^3 (test code = 742-7) 0.60 10*3/uL 0.36-1.02 EOS x10^3 (test code = 711-2) 0.30 10*3/uL 0.06-0.53 BASO x10^3 (test code = 704-7) 0.10 10*3/uL 0.01-0.09 H Lab Interpretation (test code = 31170-2) Abnormal [facility] GLUCOSE (AUTOMATED)2022-02-21 08:00:25* Test Item Value Reference Range Interpretation Comme nts POCT GLU (test code = 6553808063) 199 mg/dL 70-110 H Lab Interpretation (test cod e = 37241-8) Abnormal [facility] CenterVITAMIN B12, [id number] 07:16:33* Test Item Value Reference Range Interpretation Comme nts VIT B12 (test code = 5319709387) 363 pg/mL 240-930 SHIKHA (test code = SHIKHA) Biotin has been reported to cause a positive bias, interpret results relative to patient's use of biotin. Lab Interpretation (test code = 39417-9) Normal [facility] CenterGLYCOSYLATED HEMOGLOBIN (A1C)2022-02-21 04:13:30* Test Item Value Reference Range Interpretation Comme nts HGB A1C (test code = 4548-4) 13.4 % 4.0-5.7 H SHIKHA (test code = SHIKHA) Reference RangesNormal: <5.7%Prediabetes: 5.7 - 6.4%Diabetes: > 6.5% Lab Interpretation (test code = 38101-0) Abnormal [facility] GLUCOSE (AUTOMATED)2022-02-21 04:10:59* Test Item Value Reference Range Interpretation Comme nts POCT GLU (test code = 1618980875) 329 mg/dL 70-110 H Lab Interpretation (test cod e = 44306-0) Abnormal [facility] GLUCOSE (AUTOMATED)2022-02-20 22:07:15* Test Item Value Reference Range Interpretation Comme nts POCT GLU (test code = 0402100498) 159 mg/dL 70-110 H Lab Interpretation (test cod e = 58916-2) Abnormal [facility] GLUCOSE (AUTOMATED)2022-02-20 18:59:37* Test Item Value Reference Range Interpretation Comme nts POCT GLU (test code = 4168233695) 173 mg/dL 70-110 H Lab Interpretation (test cod e = 16041-0) Abnormal [facility] GLUCOSE (AUTOMATED)2022-02-20 17:35:10* Test Item Value Reference Range Interpretation Comme nts POCT GLU (test code = 6252210092) 436 mg/dL 70-110 H Lab Interpretation (test cod e = 29694-2) Abnormal [facility] GLUCOSE (AUTOMATED)2022-02-20 17:35:10* Test Item Value Reference Range Interpretation Comme nts POCT GLU (test code = 5060117783) 526 mg/dL 70-110 HH Lab Interpretation (test cod e = 72724-4) Abnormal [facility] CenterSEDIMENTATION [id number] 17:32:23* Test Item Value Reference Range Interpretation Comme [facility] ESR (test code = 9384047140) See_Comment H [Automated messa ge] The system which generated this result transmitted reference range: 0 - 10 mm/HR. The reference range was not used to interpret this result as normal/abnormal. Lab Interpretation (test code = 57193-5) Abnormal [facility]. Metabolic Panel (12585)2022-02-20 17:11:04* Test Item Value Reference Range Interpretation Comme [facility] NA (test code = 2379992565) 132 mmol/L 135-145 L K (test code = 7750000200) 4.4 mmol/L 3.5-5.0 CL (test code = 7252933069) 95 mmol/L 98-108 L CO2 TOTAL (test code = 4040749043) 21 mmol/L 23-31 L AGAP (test code = 1746778506) 2-16 BUN (test code = 4609052882) 15 mg/dL 7-23 GLUCOSE (test code = 2999873961) 601 mg/dL 70-110 HH CREATININE (test code = 2081553493) 0.86 mg/dL 0.60-1.25 TOTAL BILI (test code = 7463446989) 1.0 mg/dL 0.1-1.1 CALCIUM (test code = 1102397117) 8.8 mg/dL 8.6-10.6 T PROTEIN (test code = 7637354029) 7.4 g/dL 6.3-8.2 ALBUMIN (test code = 6787027742) 4.1 g/dL 3.5-5.0 ALK PHOS (test code = 3160115898) 129 U/L 34-122 H ALTv (test code = 1742-6) 13 U/L 5-50 AST(SGOT) (test code = 4448588728) 22 U/L 13-40 eGFR (test code = 0364729266) mL/min/1.73m2 SHIKHA (test code = SHIKHA) Association [...] imaging tests). Lab Interpretation (test code = 77307-9) Abnormal [facility] with [id number] 16:55:35* Test Item Value Reference Range Interpretation Comme nts WBC (test code = 6690-2) See_Comment [Automated nfon] The system which generated this result transmitted reference range: 4.20 - 10.70 10*3/?L. The reference range was not used to interpret this result as normal/abnormal. RBC (test code = 789-8) See_Comment [Automated nfon] The system which generated this result transmitted [...] 33.8 g/dL 31.2-35.0 RDW-SD (test code = 37470-8) 38.5 fL 38.5-51.6 RDW-CV (test code = 788-0) 12.2 % 12.1-15.4 PLT (test code = 777-3) See_Comment [Automated messa ge] The system which generated this result transmitted reference range: 150 - 328 10*3/?L. The reference range was not used to interpret this result as normal/abnormal. MPV (test code = 05187-7) 11.6 fL 9.8-13.0 NRBC/100 WBC (test code = 4170421827) See_Comment [Automated Little[employer] ssage] The system which generated this result transmitted reference range: 0.0 - 10.0 /100 WBCs. The reference range was not used to interpret this result as normal/abnormal. NRBC x10^3 (test code = 0125597587) <0.01 See_Comment [Automated messa ge] The system which generated this result transmitted reference range: 10*3/?L. The reference range was not used to interpret this result as normal/abnormal. GRAN MAT (NEUT) % (test code = 770-8) 57.9 % IMM GRAN % (test code = 0189271060) 0.10 % LYMPH % (test code = 736-9) 30.5 % MONO % (test code = 5905-5) 7.5 % EOS % (test code = 713-8) 3.0 % BASO % (test code = 706-2) 1.0 % GRAN MAT x10^3(ANC) (test code = 5626836497) 4.08 10*3/uL 1.99-6.95 IMM GRAN x10^3 (test code = 6928872696) <0.03 0.00-0.06 LYMPH x10^3 (test code = 731-0) 2.15 10*3/uL 1.09-3.23 MONO x10^3 (test code = 742-7) 0.53 10*3/uL 0.36-1.02 EOS x10^3 (test code = 711-2) 0.21 10*3/uL 0.06-0.53 BASO x10^3 (test code = 704-7) 0.07 10*3/uL 0.01-0.09 Lab Interpretation (test code = 86753-2) [facility])2022-02-20 16:01:05* Test Item Value Reference Range Interpretation Comme [facility] POCT GLU (test code = 0745029426) 492 mg/dL 70-110 HH Lab Interpretation (test cod e = 04919-9) Abnormal [facility] CenterHEMOGLOBIN [id number] 00:00:00* Test Item Value Reference Range Interpretation Comme [facility] HEMOGLOBIN A1c (test code = 15181) 12.1 % COMPREHENSIVE METABOLIC [id number] 00:00:00* Test Item Value Reference Range Interpretation Comme [facility] GLUCOSE (test code = 7) 499 MG/DL BUN (test code = 8) 16 MG/DL CREATININE (test code = 2214) 1.11 MG/DL eGFR AMER. (test cod e = 07302) 86 ML/MIN/1.73 eGFR NON- AMER. (test code = 85815) 74 ML/MIN/1.73 CALC BUN/CREAT (test code = [...] (test code = 2219) 12 U/L HEMOGLOBIN [id number] 00:00:00* Test Item Value Reference Range Interpretation Comme nts HEMOGLOBIN A1c (test code = 25466) 12.1 % COMPREHENSIVE METABOLIC [id number] 00:00:00* Test Item Value Reference Range Interpretation Comme nts GLUCOSE (test code = 2217) 499 MG/DL BUN (test code = 2208) 16 MG/DL CREATININE (test code = 2214) 1.11 MG/DL eGFR AMER. (test cod e = 96616) 86 ML/MIN/1.73 eGFR NON- AMER. (test code = 16698) 74 ML/MIN/1.73 CALC BUN/CREAT (test code = [...] (test code = 2219) 12 U/L HEMOGLOBIN [id number] 00:00:00* Test Item Value Reference Range Interpretation Comme nts HEMOGLOBIN A1c (test code = 39647) 11.0 % COMPREHENSIVE METABOLIC [id number] 00:00:00* Test Item Value Reference Range Interpretation Comme nts GLUCOSE (test code = 2217) 214 MG/DL BUN (test code = 2208) 21 MG/DL CREATININE (test code = 2214) 0.90 MG/DL eGFR AMER. (test cod e = 61773) 110 ML/MIN/1.73 eGFR NON- AMER. (test code = 02874) 95 ML/MIN/1.73 CALC BUN/CREAT (test code = [...] 2204) 81 U/L AST (test code = 221) 18 U/L ALT (test code = 2219) 20 U/L LIPID [id number] 00:00:00* Test Item Value Reference Range Interpretation Comme nts CHOLESTEROL (test code = 2210) 173 MG/DL TRIGLYCERIDES (test code = 2232) 128 MG/DL HDL CHOLESTEROL (test code = 0) 69 MG/DL CALC LDL CHOL (test code = 2236) 82 MG/DL RISK RATIO LDL/HDL (test cod e = 2238) 1.19 RATIO HEMOGLOBIN [id number] 00:00:00* Test Item Value Reference Range Interpretation Comme nts HEMOGLOBIN A1c (test code = 00499) 11.0 % COMPREHENSIVE METABOLIC [id number] 00:00:00* Test Item Value Reference Range Interpretation Comme nts GLUCOSE (test code = 7) 214 MG/DL BUN (test code = 2207) 21 MG/DL CREATININE (test code = 2214) 0.90 MG/DL eGFR AMER. (test cod e = 01065) 110 ML/MIN/1.73 eGFR NON- AMER. (test code = 82028) 95 ML/MIN/1.73 CALC BUN/CREAT (test code = [...] (test code = 2219) 20 U/L LIPID [id number] 00:00:00* Test Item Value Reference Range Interpretation [...] Comme nts POCT GLU (test code = 2817174304) 67 mg/dL 70-110 L Lab Interpretation (test cod e = 03867-8) [facility]normal [facility] CenterVancomycin Trough Level - Draw no more than 60 minutes before the 1200 dose.2020-10-14 21:36:00* Test Item Value Reference Range Interpretation Comme nts VANCO TROUGH (test code = 2932901615) 13.4 ug/mL 10-20 SHIKHA (test code = SHIKHA) Toxic Range: ?>20 ug/mL 15-20 ug/mL is recommended for severe infection or when Vancomycin TERRANCE is greater than or equal to 2. Lab Interpretation (test code = 12773-3) Normal [facility] GLUCOSE (AUTOMATED)2020-10-14 17:59:00* Test Item Value Reference Range Interpretation Comme nts POCT GLU (test code = 7209937852) 97 mg/dL 70-110 Lab Interpretation (test cod e = 95441-6) Normal [facility] GLUCOSE (AUTOMATED)2020-10-14 14:14:00* Test Item Value Reference Range Interpretation Comme nts POCT GLU (test code = 3239536590) 160 mg/dL 70-110 H Lab Interpretation (test cod e = 34237-4) Abnormal [facility] CenterN-TERMINAL [id number] 13:30:00* Test Item Value Reference Range Interpretation Comme nts NT-proBNP (test code = 1727598070) 147 pg/mL See_Comment H [Automated message] The system which generated this result transmitted reference range: <=125. The reference range was not used to interpret this result as normal/abnormal. SHIKHA (test code = SHIKHA) Biotin has been reported to cause a negative bias, interpret results relative to patient's use of biotin. Lab Interpretation (test code = 54113-7) Abnormal [facility]. METABOLIC PANEL (94267)2020-10-14 13:28:00* Test Item Value Reference Range Interpretation Comme nts NA (test code = 2110310049) 138 mmol/L 135-145 K (test code = 5648316681) 3.2 mmol/L 3.5-5 L CL (test code = 4642819192) 102 mmol/L 98-108 CO2 TOTAL (test code = 1987077505) 30 mmol/L 23-31 AGAP (test code = 4610796306) 2-16 BUN (test code = 2029804397) 17 mg/dL 7-23 GLUCOSE (test code = 6305314072) 171 mg/dL 70-110 H CREATININE (test code = 0572243267) 0.92 mg/dL 0.6-1.25 TOTAL BILI (test code = 3393794054) 0.7 mg/dL 0.1-1.1 CALCIUM (test code = 8555667345) 9.3 mg/dL 8.6-10.6 T PROTEIN (test code = 3201059986) 6.9 g/dL 6.3-8.2 ALBUMIN (test code = 9598375674) 3.3 g/dL 3.5-5 L ALK PHOS (test code = 2208350136) 78 U/L 34-122 ALTv (test code = 1742-6) 8 U/L 5-50 AST(SGOT) (test code = 6467500388) 21 U/L 13-40 eGFR Calculation (Non-) (test code = 6040076907) mL/min/1.73m2 eGFR Calculation () (test code = 4706971311) mL/min/1.73m2 SHIKHA (test code = SHIKHA) Association [...] imaging tests). Lab Interpretation (test code = 42763-0) [facility]* Test Item Value Reference Range Interpretation Comme nts MAGNESIUM (test code = 6409929106) 2.0 mg/dL 1.7-2.4 Lab Interpretation (test cod e = 98226-7) [facility] [id number] 13:03:00* Test Item Value Reference Range Interpretation Comme nts WBC (test code = 6690-2) See_Comment [Automated [employer]] The system which generated this result transmitted reference range: 4.20 - 10.70 10*3/?L. The reference range was not used to interpret this result as normal/abnormal. RBC (test code = 789-8) See_Comment L [Automated [employer]] The system which generated this result transmitted [...] 34.2 g/dL 31.2-35 RDW-SD (test code = 26219-3) 38.8 fL 38.5-51.6 RDW-CV (test code = 788-0) 12.2 % 12.1-15.4 PLT (test code = 777-3) See_Comment [Automated messa ge] The system which generated this result transmitted reference range: 150 - 328 10*3/?L. The reference range was not used to interpret this result as normal/abnormal. MPV (test code = 11505-9) 11.2 fL 9.8-13 NRBC/100 WBC (test code = 0632900282) See_Comment [Automated Little1 ssage] The system which generated this result transmitted reference range: 0.0 - 10.0 /100 WBCs. The reference range was not used to interpret this result as normal/abnormal. NRBC x10^3 (test code = 8539866771) <0.01 See_Comment [Automated messa ge] The system which generated this result transmitted reference range: 10*3/?L. The reference range was not used to interpret this result as normal/abnormal. GRAN MAT (NEUT) % (test code = 770-8) 62.4 % IMM GRAN % (test code = 9621698880) 0.30 % LYMPH % (test code = 736-9) 22.6 % MONO % (test code = 5905-5) 9.5 % EOS % (test code = 713-8) 4.0 % BASO % (test code = 706-2) 1.2 % GRAN MAT x10^3(ANC) (test code = 8353879536) 5.62 10*3/uL 1.99-6.95 IMM GRAN x10^3 (test code = 6567337817) 0.03 10*3/uL 0-0.06 LYMPH x10^3 (test code = 731-0) 2.04 10*3/uL 1.09-3.23 MONO x10^3 (test code = 742-7) 0.86 10*3/uL 0.36-1.02 EOS x10^3 (test code = 711-2) 0.36 10*3/uL 0.06-0.53 BASO x10^3 (test code = 704-7) 0.11 10*3/uL 0.01-0.09 H Lab Interpretation (test code = 05930-5) Abnormal [facility] GLUCOSE (AUTOMATED)2020-10-14 05:05:00* Test Item Value Reference Range Interpretation Comme nts POCT GLU (test code = 5153800046) 161 mg/dL 70-110 H Lab Interpretation (test cod e = 47551-9) Abnormal [facility] GLUCOSE (AUTOMATED)2020-10-13 23:12:00* Test Item Value Reference Range Interpretation Comme nts POCT GLU (test code = 7508674733) 76 mg/dL 70-110 Lab Interpretation (test cod e = 75481-3) Normal [facility] GLUCOSE (AUTOMATED)2020-10-13 22:47:00* Test Item Value Reference Range Interpretation Comme nts POCT GLU (test code = 5460186574) 53 mg/dL 70-110 L Notified Provide r Lab Interpretation (test code = 05000-8) Abnormal [facility] GLUCOSE (AUTOMATED)2020-10-13 18:07:00* Test Item Value Reference Range Interpretation Comme nts POCT GLU (test code = 6888085404) 76 mg/dL 70-110 Notified Provide r Lab Interpretation (test code = 86346-7) [facility] [id number] 17:44:00 * Test Item Value Reference Range Interpretation Comme nts TSH (test code = 5915655557) See_Comment [Automated Passworksa ge] The system which generated this result transmitted reference range: 0.45 - 4.70 mIU/L. The reference range was not used to interpret this result as normal/abnormal. Lab Interpretation (test code = 47185-3) [facility] Center[facility]IT[facility]IN D, [id number] 17:24:00* Test Item Value Reference Range Interpretation Comme nts VIT D 25OH (test code = 93387-7) <13 25-80 L SHIKHA (test code = SHIKHA) Deficiency: <20 ng/mLInsufficiency: 20-24 ng/mLOptimal: 25-80 ng/mL Lab Interpretation (test code = 25354-4) [facility]normal [facility] CenterN-TERMINAL [id number] 17:23:00* Test Item Value Reference Range Interpretation Comme nts NT-proBNP (test code = 1419045917) 172 pg/mL See_Comment H [Automated message] The system which generated this result transmitted reference range: <=125. The reference range was not used to interpret this result as normal/abnormal. SHIKHA (test code = SHIKHA) Biotin has been reported to cause a negative bias, interpret results relative to patient's use of biotin. Lab Interpretation (test code = 10295-7) [facility]normal [facility] CenterLIPID PANEL (94798)(TOTAL CHOLESTEROL, TRIGLYCERIDES, HDL)2020-10-13 17:13:00* Test Item Value Reference Range Interpretation Comme nts CHOL (test code = 2345116018) 187 mg/dL 120-200 HDL (test code = 5410064840) 36 mg/dL >40 L HDLC RATIO (test code = 5198743531) See_Comment H [Automated nfon] The system which generated this result transmitted reference range: <=5.0. The reference range was not used to interpret this result as normal/abnormal. TRIG (test code = 3029617758) 127 mg/dL 30-170 LDL CHOL (test code = 72200-3) 126 mg/dL See_Comment [Automated Passworksa ge] The system which generated this result transmitted reference range: <=160. The reference range was not used to interpret this result as normal/abnormal. VLDL (test code = 9858200259) 25 mg/dL 5-60 Lab Interpretation (test code = 68214-9) [facility]2020-10-13 14:13:00* Test Item Value Reference Range Interpretation Comme nts POCT GLU (test code = 6770209262) 207 mg/dL 70-110 H Lab Interpretation (test cod e = 47890-1) Abnormal [facility] Metabolic Panel (NA, K, CL, CO2, GLUCOSE, BUN, CREATININE, CA)2020-10-13 13:34:00* Test Item Value Reference Range Interpretation Comme nts NA (test code = 3924414569) 136 mmol/L 135-145 K (test code = 2850512858) 3.6 mmol/L 3.5-5 CL (test code = 7888861323) 99 mmol/L 98-108 CO2 TOTAL (test code = 8116415333) 26 mmol/L 23-31 AGAP (test code = 3796219675) 2-16 BUN (test code = 8071157628) 12 mg/dL 7-23 GLUCOSE (test code = 5112892252) 213 mg/dL 70-110 H CREATININE (test code = 2299254473) 0.86 mg/dL 0.6-1.25 CALCIUM (test code = 0789274119) 9.4 mg/dL 8.6-10.6 eGFR Calculation (Non-) (test code = 9521926050) mL/min/1.73m2 eGFR Calculation () (test code = 6765344994) mL/min/1.73m2 SHIKHA (test code = SHIKHA) Association [...] imaging tests). Lab Interpretation (test code = 45027-3) Abnormal [facility] with [id number] 13:00:00* Test Item Value Reference Range Interpretation Comme nts WBC (test code = 6690-2) See_Comment [Automated Passworksa ge] The system which generated this result transmitted reference range: 4.20 - 10.70 10*3/?L. The reference range was not used to interpret this result as normal/abnormal. RBC (test code = 789-8) See_Comment L [Automated Passworksa ge] The system which generated this result [...] 34.8 g/dL 31.2-35 RDW-SD (test code = 95012-8) 37.1 fL 38.5-51.6 L RDW-CV (test code = 788-0) 12.0 % 12.1-15.4 L PLT (test code = 777-3) See_Comment [Automated Passworksa ge] The system which generated this result transmitted reference range: 150 - 328 10*3/?L. The reference range was not used to interpret this result as normal/abnormal. MPV (test code = 57630-5) 11.1 fL 9.8-13 NRBC/100 WBC (test code = 5117028404) See_Comment [Automated Little1 ssage] The system which generated this result transmitted reference range: 0.0 - 10.0 /100 WBCs. The reference range was not used to interpret this result as normal/abnormal. NRBC x10^3 (test code = 0085127133) <0.01 See_Comment [Automated messa ge] The system which generated this result transmitted reference range: 10*3/?L. The reference range was not used to interpret this result as normal/abnormal. GRAN MAT (NEUT) % (test code = 770-8) 61.1 % IMM GRAN % (test code = 1428024687) 0.20 % LYMPH % (test code = 736-9) 24.6 % MONO % (test code = 5905-5) 9.5 % EOS % (test code = 713-8) 3.6 % BASO % (test code = 706-2) 1.0 % GRAN MAT x10^3(ANC) (test code = 6575211246) 5.27 10*3/uL 1.99-6.95 IMM GRAN x10^3 (test code = 5230311451) <0.03 0-0.06 LYMPH x10^3 (test code = 731-0) 2.12 10*3/uL 1.09-3.23 MONO x10^3 (test code = 742-7) 0.82 10*3/uL 0.36-1.02 EOS x10^3 (test code = 711-2) 0.31 10*3/uL 0.06-0.53 BASO x10^3 (test code = 704-7) 0.09 10*3/uL 0.01-0.09 Lab Interpretation (test code = 89148-7) Abnormal [facility] CenterCT FOOT RIGHT W [id number] 10:58:29 Diffuse soft tissue swelling, most prominent [...] contrast. Sagittal and coronal reconstructions are generated andreviewed.BONE:Screw fixation of the medial malleolus is seen without hardware fracture orparalleling lucency. Plate and screw fixation of the distal fibula is notedwithout complication. Posttraumatic remodeling is noted in the distal tibiaand fourth through fifth metatarsal bases. Moderate joint space is notedacross the midfoot and forefoot articulatio ns with marginal osteophytosis,subchondral sclerosis, and degenerative cyst [...] third toe. No discrete abscess is identified. Diabetic typevascular calcifications are present.IMPRESSIONDiffuse soft tissue swelling, most prominent about the third toe.No CT evidence of osteomyelitis.No abscess formation.Midfoot osteoarthrosis.Uncomplicated lateral and medial malleolar hardware fixation.Preliminary Report Dictated by Resident: Pretty MckeonComment: CT scan is not sensitive for the early detection of osteomyeli tisand MRI is the recommended study of choice. I, Laureano Crump MD., have reviewed this study andagree with the abovereport.[facility] CenterPO[facility]SE (AUTOMATED)2020-10-13 02:35:00* Test Item Value Reference Range Interpretation Comme nts POCT GLU (test code = 2165919114) 341 mg/dL 70-110 H Lab Interpretation (test cod e = 15374-2) Abnormal [facility] CenterGlycosylated Hemoglobin (A1C)2020-10-13 01:00:00* Test Item Value Reference Range Interpretation Comme [facility] HGB A1C (test code = 4548-4) 13.0 % 4-6 H SHIKHA (test code = SHIKHA) %A1C (NGSP) Interpretation (ADA)4.8-5.6 ? ? Normal or (Non-Diabetic Range)5.7-6.4 ? ? Increased Risk (Pre-Diabetic)>6.5 ?Diabetes Indicated Lab Interpretation (test code = 54722-8) Abnormal [facility] CenterURINALYSIS2020-12-09 22:53:00* Test Item Value Reference Range Interpretation Comme nts APPEARANCE (test code = 5163286762) Clear Clear COLOR (test code = 0805426998) Yellow Yellow PH (test code = 2594567822) 4.8-8.0 SP GRAVITY (test code = 5054479763) 1.003-1.030 H GLU U QUAL (test code = 2666104946) 500 mg/dL Normal A BLOOD (test code = 4092302213) 1+ Negative A KETONES (test code = 4252494119) Negative Negative PROTEIN (test code = 2887-8) Negative Negative UROBILIN (test code = 1306279430) Normal Normal BILIRUBIN (test code = 6545323273) Negative Negative NITRITE (test code = 7410398888) Negative Negative LEUK KEEGAN (test code = 8781644832) Negative Negative RBC/HPF (test code = 6269289534) See_Comment [Automated messa ge] The system which generated this result transmitted reference range: 0 - 3 HPF. The reference range was not used to interpret this result as normal/abnormal. WBC/HPF (test code = 3453769281) See_Comment [Automated messa ge] The system which generated this result transmitted reference range: 0 - 5 HPF. The reference range was not used to interpret this result as normal/abnormal. BACTERIA (test code = 7129433185) Few Negative A MUCOUS (test code = 8838192365) Slight Negative LPF A SQ EPITH (test code = 3664071201) <1 HPF Lab Interpretation (test code = 17122-8) Abnormal [facility] CenterCOVID-19 (ID NOW RAPID TESTING)2020-10-12 22:48:00* Test Item Value Reference Range Interpretation Comme nts SARS-CoV-2 Rapid ID NOW (test code = 98945-7) Not Detected Not Detected SHIKHA (test code = SHIKHA) ID NOW COVID-19 As say is an isothermal nucleic acid amplification test intended for the qualitative detection of nucleic acid from SARS-CoV-2 viral RNA in nasopharyngeal ([employer]) specimens. It is used under Emergency Use [...] clinically indicated. Lab Interpretation (test code = 94777-7) Normal [facility]. METABOLIC PANEL (29928)2020-10-12 22:38:00* Test Item Value Reference Range Interpretation Comme nts NA (test code = 6860012225) 134 mmol/L 135-145 L K (test code = 2741227021) 4.1 mmol/L 3.5-5 CL (test code = 2512298267) 95 mmol/L 98-108 L CO2 TOTAL (test code = 6616446557) 28 mmol/L 23-31 AGAP (test code = 7104622655) 2-16 BUN (test code = 1791403351) 11 mg/dL 7-23 GLUCOSE (test code = 4023505634) 416 mg/dL 70-110 H CREATININE (test code = 0000088307) 0.85 mg/dL 0.6-1.25 TOTAL BILI (test code = 2711323479) 1.3 mg/dL 0.1-1.1 H CALCIUM (test code = 9971516527) 9.9 mg/dL 8.6-10.6 T PROTEIN (test code = 7565536324) 8.2 g/dL 6.3-8.2 ALBUMIN (test code = 1514710621) 4.2 g/dL 3.5-5 ALK PHOS (test code = 9037606653) 105 U/L 34-122 ALTv (test code = 1742-6) 12 U/L 5-50 AST(SGOT) (test code = 8577449094) 16 U/L 13-40 eGFR Calculation (Non-) (test code = 5743176951) mL/min/1.73m2 eGFR Calculation () (test code = 5699695035) mL/min/1.73m2 SHIKHA (test code = SHIKHA) Association [...] imaging tests). Lab Interpretation (test code = 23585-5) Abnormal [facility] WITH [id number] 22:26:00* Test Item Value Reference Range Interpretation Comme nts WBC (test code = 6690-2) See_Comment [Automated Passworksa Keko] The system which generated this result transmitted reference range: 4.20 - 10.70 10*3/?L. The reference range was not used to interpret this result as normal/abnormal. RBC (test code = 789-8) See_Comment L [Automated Passworksa Keko] The system which generated this result transmitted [...] 34.3 g/dL 31.2-35 RDW-SD (test code = 92799-3) 37.1 fL 38.5-51.6 L RDW-CV (test code = 788-0) 12.0 % 12.1-15.4 L PLT (test code = 777-3) See_Comment H [Automated Passworksa Keko] The system which generated this result transmitted reference range: 150 - 328 10*3/?L. The reference range was not used to interpret this result as normal/abnormal. MPV (test code = 72632-4) 11.4 fL 9.8-13 NRBC/100 WBC (test code = 7083309908) See_Comment [Automated me ssage] The system which generated this result transmitted reference range: 0.0 - 10.0 /100 WBCs. The reference range was not used to interpret this result as normal/abnormal. NRBC x10^3 (test code = 3753701899) <0.01 See_Comment [Automated messa ge] The system which generated this result transmitted reference range: 10*3/?L. The reference range was not used to interpret this result as normal/abnormal. GRAN MAT (NEUT) % (test code = 770-8) 65.8 % IMM GRAN % (test code = 4560030281) 0.30 % LYMPH % (test code = 736-9) 23.2 % MONO % (test code = 5905-5) 8.1 % EOS % (test code = 713-8) 1.8 % BASO % (test code = 706-2) 0.8 % GRAN MAT x10^3(ANC) (test code = 7738967493) 5.98 10*3/uL 1.99-6.95 IMM GRAN x10^3 (test code = 2607195932) 0.03 10*3/uL 0-0.06 LYMPH x10^3 (test code = 731-0) 2.11 10*3/uL 1.09-3.23 MONO x10^3 (test code = 742-7) 0.74 10*3/uL 0.36-1.02 EOS x10^3 (test code = 711-2) 0.16 10*3/uL 0.06-0.53 BASO x10^3 (test code = 704-7) 0.07 10*3/uL 0.01-0.09 Lab Interpretation (test code = 45790-0) Abnormal [facility] CenterXR TOES 2 VW [id number] 22:09:30HISTORY: Cellulitis. FINDINGS: AP and lateral views [...] fracture or dislocation in right great toe. [facility], Radiant Results Inft User - 10/12/2020 4:10 [...] acute fracture or dislocation in right great toe.[facility] CenterXR ANKLE 3+ VW [id number] 22:08:12HISTORY: Cellulitis. FINDINGS: AP, lateral, oblique views [...] acute fracture or dislocation in right ankle. [facility], Radiant Results Inft User - 10/12/2020 4:09 [...] acute fracture or disloca tion in right ankle.[facility] CenterCULTURE, [id number] 00:00:00* Test Item Value Reference Range Interpretation Comme nts CULTURE, ROUTINE (test code = 47261) SPECIMEN NUMBER: [id number] COMPREHENSIVE METABOLIC [id number] 00:00:00* Test Item Value Reference Range Interpretation Comme nts GLUCOSE (test code = 2217) 316 MG/DL BUN (test code = 2208) 23 MG/DL CREATININE (test code = 2214) 1.06 MG/DL eGFR AMER. (test cod e = 64106) 92 ML/MIN/1.73 eGFR NON- AMER. (test code = 50268) 80 ML/MIN/1.73 CALC BUN/CREAT (test code = [...] code = 2219) 8 U/L CBC W/AUTO [id number] 00:00:00* Test Item Value Reference Range Interpretation [...] (test code = 1015) 319 K/UL HEMOGLOBIN [id number] 00:00:00* Test Item Value Reference Range Interpretation Comme nts HEMOGLOBIN A1c (test code = 94973) 11.1 % COMPREHENSIVE METABOLIC [id number] 00:00:00* Test Item Value Reference Range Interpretation Comme nts GLUCOSE (test code = 2217) 316 MG/DL BUN (test code = 2208) 23 MG/DL CREATININE (test code = 2214) 1.06 MG/DL eGFR AMER. (test cod e = 52757) 92 ML/MIN/1.73 eGFR NON- AMER. (test code = 68690) 80 ML/MIN/1.73 CALC BUN/CREAT (test code = [...] (test code = 2219) 8 U/L CULTURE, [id number] 00:00:00* Test Item Value Reference Range Interpretation Comme nts CULTURE, ROUTINE (test code = 23683) SPECIMEN NUMBER: [id number] CBC W/AUTO [id number] 00:00:00* Test Item Value Reference Range Interpretation [...] (test code = 1015) 319 K/UL HEMOGLOBIN [id number] 00:00:00* Test Item Value Reference Range Interpretation Comme nts HEMOGLOBIN A1c (test code = 64053) 11.1 % COMPREHENSIVE METABOLIC [id number] 00:00:00* Test Item Value Reference Range Interpretation Comme nts GLUCOSE (test code = 2217) 258 MG/DL BUN (test code = 2208) 24 MG/DL CREATININE (test code = 2214) 1.01 MG/DL eGFR AMER. (test cod e = 42937) 98 ML/MIN/1.73 eGFR NON- AMER. (test code = 84507) 85 ML/MIN/1.73 CALC BUN/CREAT (test code = [...] (test code = 2219) 15 U/L LIPID [id number] 00:00:00* Test Item Value Reference Range Interpretation Comme nts CHOLESTEROL (test code = 2210) 201 MG/DL TRIGLYCERIDES (test code = 2232) 103 MG/DL HDL CHOLESTEROL (test code = 2220) 58 MG/DL CALC LDL CHOL (test code = 2237) 122 MG/DL RISK RATIO LDL/HDL (test cod e = 2238) 2.11 RATIO HEMOGLOBIN [id number] 00:00:00* Test Item Value Reference Range Interpretation Comme nts HEMOGLOBIN A1c (test code = 06905) 10.6 % MICROALBUMIN/CREATININE, RANDOM AND [id number] 00:00:00* Test Item Value Reference Range Interpretation Comme nts CREATININE, URINE, CONC. (te st code = 2072) 378.5 MG/DL MICROALBUMIN, RANDOM (test c ode = 88746) 6.8 MG/DL CALC MICROALB/CREAT RND (gifty t code = 58053) 18 MG/G COMPREHENSIVE METABOLIC [id number] 00:00:00* Test Item Value Reference Range Interpretation Comme nts GLUCOSE (test code = 2217) 258 MG/DL BUN (test code = 2208) 24 MG/DL CREATININE (test code = 2214) 1.01 MG/DL eGFR AMER. (test cod e = 45865) 98 ML/MIN/1.73 eGFR NON- AMER. (test code = 60811) 85 ML/MIN/1.73 CALC BUN/CREAT (test code = [...] (test code = 2219) 15 U/L LIPID [id number] 00:00:00* Test Item Value Reference Range Interpretation Comme nts CHOLESTEROL (test code = 2210) 201 MG/DL TRIGLYCERIDES (test code = 2232) 103 MG/DL HDL CHOLESTEROL (test code = 2220) 58 MG/DL CALC LDL CHOL (test code = 2237) 122 MG/DL RISK RATIO LDL/HDL (test cod e = 2238) 2.11 RATIO HEMOGLOBIN [id number] 00:00:00* Test Item Value Reference Range Interpretation Comme nts HEMOGLOBIN A1c (test code = 35147) 10.6 % MICROALBUMIN/CREATININE, RANDOM AND [id number] 00:00:00* Test Item Value Reference Range Interpretation Comme nts CREATININE, URINE, CONC. (te st code = 2072) 378.5 MG/DL MICROALBUMIN, RANDOM (test c ode = 41790) 6.8 MG/DL CALC MICROALB/CREAT RND (gifty t code = 04643) 18 MG/G CULTURE, [id number] 00:00:00* Test Item Value Reference Range Interpretation Comme nts CULTURE, ROUTINE (test code = 94055) SPECIMEN NUMBER: [id number] CULTURE, [id number] 00:00:00* Test Item Value Reference Range Interpretation Comme nts CULTURE, ROUTINE (test code = 84636) SPECIMEN NUMBER: [id number] HEMOGLOBIN [id number] 00:00:00* Test Item Value Reference Range Interpretation Comme nts HEMOGLOBIN A1c (test code = 47762) 9.2 % COMPREHENSIVE METABOLIC [id number] 00:00:00* Test Item Value Reference Range Interpretation Comme nts GLUCOSE (test code = 2217) 299 MG/DL BUN (test code = 2208) 21 MG/DL CREATININE (test code = 2214) 1.21 MG/DL eGFR AMER. (test cod e = 73462) 79 ML/MIN/1.73 eGFR NON- AMER. (test code = 16181) 68 ML/MIN/1.73 CALC BUN/CREAT (test code = [...] (test code = 2219) 21 U/L LIPID [id number] 00:00:00* Test Item Value Reference Range Interpretation Comme nts CHOLESTEROL (test code = 2210) 227 MG/DL TRIGLYCERIDES (test code = 2232) 205 MG/DL HDL CHOLESTEROL (test code = 2220) 53 MG/DL CALC LDL CHOL (test code = 2237) 133 MG/DL RISK RATIO LDL/HDL (test cod e = 2238) 2.51 RATIO MICROALBUMIN/CREATININE, RANDOM AND [id number] 00:00:00* Test Item Value Reference Range Interpretation Comme nts CREATININE, URINE, CONC. (te st code = 2072) 230.9 MG/DL MICROALBUMIN, RANDOM (test c ode = 89565) 10.2 MG/DL CALC MICROALB/CREAT RND (gifty t code = 67207) 44 MG/G HEMOGLOBIN [id number] 00:00:00* Test Item Value Reference Range Interpretation Comme nts HEMOGLOBIN A1c (test code = 71049) 9.2 % COMPREHENSIVE METABOLIC [id number] 00:00:00* Test Item Value Reference Range Interpretation Comme nts GLUCOSE (test code = 2217) 299 MG/DL BUN (test code = 2208) 21 MG/DL CREATININE (test code = 2214) 1.21 MG/DL eGFR AMER. (test cod e = 93559) 79 ML/MIN/1.73 eGFR NON- AMER. (test code = 24432) 68 ML/MIN/1.73 CALC BUN/CREAT (test code = [...] (test code = 2219) 21 U/L LIPID [id number] 00:00:00* Test Item Value Reference Range Interpretation Comme nts CHOLESTEROL (test code = 2210) 227 MG/DL TRIGLYCERIDES (test code = 2232) 205 MG/DL HDL CHOLESTEROL (test code = 2220) 53 MG/DL CALC LDL CHOL (test code = 2237) 133 MG/DL RISK RATIO LDL/HDL (test cod e = 2238) 2.51 RATIO MICROALBUMIN/CREATININE, RANDOM AND [id number] 00:00:00* Test Item Value Reference Range Interpretation Comme nts CREATININE, URINE, CONC. (te st code = 2072) 230.9 MG/DL MICROALBUMIN, RANDOM (test c ode = 10665) 10.2 MG/DL CALC MICROALB/CREAT RND (gifty t code = 03475) 44 MG/G COMPREHENSIVE METABOLIC [id number] 00:00:00* Test Item Value Reference Range Interpretation Comme nts GLUCOSE (test code = 2217) 314 MG/DL BUN (test code = 2208) 14 MG/DL CREATININE (test code = 2214) 0.86 MG/DL eGFR AMER. (test cod e = 65638) 116 ML/MIN/1.73 eGFR NON- AMER. (test code = 64928) 100 ML/MIN/1.73 CALC BUN/CREAT (test code = [...] (test code = 2219) 20 U/L LIPID [id number] 00:00:00* Test Item Value Reference Range Interpretation [...] code = 2821) 1.1 UIU/ML CBC W/AUTO [id number] 00:00:00* Test Item Value Reference Range Interpretation [...] (test code = 1015) 288 K/UL HEMOGLOBIN [id number] 00:00:00* Test Item Value Reference Range Interpretation Comme nts HEMOGLOBIN A1c (test code = 71422) 12.1 % PSA, [id number] 00:00:00* Test Item Value Reference Range Interpretation Comme nts PSA, TOTAL (test code = 2606) 0.6 NG/ML COMPREHENSIVE METABOLIC [id number] 00:00:00* Test Item Value Reference Range Interpretation Comme nts GLUCOSE (test code = 2217) 314 MG/DL BUN (test code = 2208) 14 MG/DL CREATININE (test code = 2214) 0.86 MG/DL eGFR AMER. (test cod e = 18781) 116 ML/MIN/1.73 eGFR NON- AMER. (test code = 56556) 100 ML/MIN/1.73 CALC BUN/CREAT (test code = [...] (test code = 2219) 20 U/L LIPID [id number] 00:00:00* Test Item Value Reference Range Interpretation [...] code = 2821) 1.1 UIU/ML CBC W/AUTO [id number] 00:00:00* Test Item Value Reference Range Interpretation [...] (test code = 1015) 288 K/UL HEMOGLOBIN [id number] 00:00:00* Test Item Value Reference Range Interpretation [facility] HEMO[facility] A1c (test code = 95668) 12.1 % PSA, [id number] 00:00:00* Test Item Value Reference Range Interpretation [facility] PSA, TOTAL (test code = 2606) 0.6 NG/ML Notes Date/Time Note Provider Source 2024-08-02 20:39:53 Summary: Discharge Images from the original note were not included. Pt given printed and verbal discharge instructions regarding headache, encouraged hydration, Prescriptions provided cefdinir 300 mg capsule hydrOXYzine 10 mg tablet Discussed ibuprofen and to take with food to avoid GI distress. Discussed antibiotic therapy and to take until all completed unless adverse reaction occurs - if occurs, discontinue medication and follow up with pcp/seek medical attention Pt verbalized understanding of instructions, pt awake alert oriented, resp reg unlabored, skin w/d, color appropriate for race, moves all ext well,pt encouraged to follow up with pcp Advised to seek medical attention for new/prolonged/worsening of symptoms, Symptoms No adverse reaction to meds given in ER noted upon discharge Awake, alert oriented, resp reg unlabored, skin w/d, pt leaving amb with steady gait, in no apparent distress, Chandrika Hardwick RN [facility] 2024-08-02 16:51:44 Triage done via language services, [place] [id number] [facility] 2024-08-02 16:44:44 Patient states "I was at work and I fell down, I am having a lot of pain on my head on my right ear and I am not able to sleep properly because of it." Patient states that he fell today, denies LOC. Denies hitting his head. 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 Travel and Exposure Screening: Symptoms Does patient have any of these symptoms?: (not recorded) Exposure Screening Has patient had contact with someone with a communicable disease in the last month?: (not recorded) Diseases exposed to:: (not recorded) Is Patient ?: (not recorded) Exposure Date: (not recorded) Chief Complaint: Chief Complaint Patient presents with Headache History of Present Illness: 58 yo with c/o rash on his scalp that wont go away, R ear pain, and a headache that has been occurring x 3 weeks, pt sts that he has been falling more frequently too, and has a cut on his toe which he thinks is making him fall. Also would like something to help him sleep as he has insomnia and anxiety at night. 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 Past Medical History/Immunizations: Past Medical History: Diagnosis Date Diabetes Diabetic foot ulcer Essential hypertension Tetanus received in last 5 years: Unknown Allergies: Allergies Allergen Reactions Morphine Other - See comments Blurred vision Past Social History: Tobacco Use Former; Cigarettes: Quit 09/2007 Smokeless Tobacco: Never used smokeless tobacco. Vaping Use Never used Alcohol Use Not Currently. Comments: socially Drug Use No. Sexual Activity Sexually active. Past Surgical History: Past Surgical History: Procedure Laterality Date APPENDECTOMY CYST EXCISION Right 06/17/2017 Surgeon: Jai Lindsey Jr., DPM; Location: [facility] OR Location CYST EXCISION Right 06/19/2017 Surgeon: Jai Lindsey Jr., DPM; Location: [facility] OR Location FOOT DEBRIDEMENT Right 01/21/2023 Surgeon: Martha Sharp DPM; Location: [facility] OR LOCATION INCISION AND DRAINAGE LOWER EXTREMITY (SHX) Right 12/12/2022 Surgeon: Mendoza Lovett DPM; Location: [facility] OR LOCATION INCISION AND DRAINAGE OF ABSCESS Right 01/21/2023 Surgeon: Martha Sharp DPM; Location: [facility] OR [facility] OTHER ankle surgery on right due to fracture Review of Systems: Review of Systems Constitutional: Negative. Negative for chills, fatigue and fever. HENT: Positive for ear pain. Negative for congestion, ear discharge, postnasal drip, rhinorrhea and sore throat. Ear pain R Eyes: Negative. Negative for visual disturbance. Respiratory: Negative. Negative for cough and shortness of breath. Cardiovascular: Negative. Negative for chest pain and palpitations. Gastrointestinal: Negative. Negative for abdominal pain, constipation, diarrhea, nausea and vomiting. Genitourinary: Negative. Musculoskeletal: Negative for neck pain and neck stiffness. Skin: Positive for rash. Neurological: Positive for headaches. Psychiatric/Behavioral: Negative. Endocrine: Endocrine negative Physical Exam: ED Triage Vitals [08/02/24 1650] Weight 72.6 kg (160 lb) Actual or estimated Height 1.651 m (5' 5") BP 128/81 Pulse 93 Resp 18 Temp 36.8 ?C (98.2 ?F) Temp source Oral SpO2 100 % Measured on Room air Physical Exam Vitals and nursing note reviewed. Constitutional: General: He is not in acute distress. Appearance: Normal appearance. He is well-developed and normal weight. He is not ill-appearing, toxic-appearing or diaphoretic. HENT: Head: Normocephalic and atraumatic. Right Ear: External ear normal. Tenderness present. No drainage or swelling. A middle ear effusion is present. No PE tube. No hemotympanum. Tympanic membrane is erythematous and bulging. Left Ear: External ear normal. No drainage or swelling. No middle ear effusion. No PE tube. No hemotympanum. Tympanic membrane is not erythematous, retracted or bulging. Nose: Nose normal. Mouth/Throat: Mouth: Mucous membranes are moist. Pharynx: Oropharynx is clear. Eyes: Pupils: Pupils are equal, round, and reactive to light. Cardiovascular: Rate and Rhythm: Normal rate and regular rhythm. Heart sounds: Normal heart sounds. Pulmonary: Effort: Pulmonary effort is normal. No respiratory distress. Breath sounds: Normal breath sounds. No stridor. No wheezing or rales. Chest: Chest wall: No tenderness. Abdominal: General: Bowel sounds are normal. There is no distension. Palpations: Abdomen is soft. There is no mass. Tenderness: There is no abdominal tenderness. There is no guarding or rebound. Musculoskeletal: General: Normal range of motion. Cervical back: Normal range of motion and neck supple. Skin: General: Skin is warm and dry. Capillary Refill: Capillary refill takes less than 2 seconds. Neurological: General: No focal deficit present. Mental Status: He is alert and oriented to person, place, and time. Mental status is at baseline. Radiology: CT HEAD WO CONTRAST Preliminary Result CT HEAD WO CONTRAST HISTORY: Fall accident. COMPARISON: MR brain dated 01/24/2020 TECHNIQUE: A CT Head was performed without the administration of intravenous contrast. FINDINGS: Left frontal scalp contusion without underlying calvarial fracture. Prominent ventricles and cerebral sulci suggestive of mild global volume loss, unchanged. No hydrocephalus, midline shift or pathological extra-axial fluid collection is present. The basal cisterns are unremarkable. There is no acute intracranial hemorrhage or significant mass effect. Unchanged chronic lacunar infarcts of the bilateral thalami. Scattered periventricular and deep white matter hypodensities are nonspecific but likely reflect chronic ischemic microvascular changes. The luevano-white matter differentiation is preserved. The mastoid air cells and paranasal air sinuses are clear. The central skull base are unremarkable. IMPRESSION No acute intracranial abnormality. Left frontal scalp contusion without underlying calvarial fracture. Preliminary Report Dictated by Resident: Too Lockhart Lab Results: Lab Results - No data to display EKG: If EKG completed, see Procedure Note. Orders and Treatments: Orders Placed This Encounter Procedures CT HEAD WO CONTRAST Orders Placed This Encounter Medications acetaminophen (TYLENOL) tablet 650 mg First Provider Eval: ED Events Date/Time Event User Comments 08/02/24 1651 Medical Screening Begins CHAR VALDEZ -- 08/02/24 165 First Provider Evaluation CHAR VALDEZ -- ED COURSE Diagnosis/Impression as of 08/02/24 1904 Acute intractable headache, unspecified headache type Non-recurrent acute suppurative otitis media of right ear without spontaneous rupture of tympanic membrane Abrasion of toe of right foot, initial encounter Rash Anxiety Insomnia, unspecified type Procedures: Procedures MDM: Medical Decision Making 58 yo with c/o rash on his scalp that wont go away, R ear pain, and a headache that has been occurring x 3 weeks, pt sts that he has been falling more frequently too, and has a cut on his toe which he thinks is making him fall. Also would like something to help him sleep as he has insomnia and anxiety at night. Denies any dizziness, feelings of syncope, chest pain or shortness of breath prior to falling. 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 Denies any SI/HI/AH/VH at this time. Primary care with [facility] CT head - no acute intracranial abnormalities noted Will give tylenol for head pain. Will d/c with Cefdinir for otitis media, atarax for anxiety. No acute findings noted on ct head. Will need to follow up with PCP for chronic rash on scalp in 1-2 weeks. Pt non toxic appearing, well hydrated, well appearing in ER, VSS, afebrile here, able to tolerate PO well in ER. No vomiting noted. Patient was evaluated for an emergency medical condition related to Headache . Differential diagnoses considered by presenting complaints but not limited to: Headache Contact dermatitis Anxiety Insomnia Head rash Otitis media SAH Stroke Diabetic foot ulcer Findings, pathophysiology related to disease process, and differential diagnosis discussed with the patient. Pt verbalizes understanding of education provided. Patient and family members agree to treatment and plan of care. The patient appears to have appropriate medical decision making capacity. Please follow up with your PCP in 1 week for reevaluation of symptoms Problems Addressed: Abrasion of toe of right foot, initial encounter: acute illness or injury Acute intractable headache, unspecified headache type: acute illness or injury Anxiety: chronic illness or injury Insomnia, unspecified type: chronic illness or injury Non-recurrent acute suppurative otitis media of right ear without spontaneous rupture of tympanic membrane: acute illness or injury Rash: acute illness or injury Amount and/or Complexity of Data Reviewed Radiology: ordered. Decision-making details documented in ED Course. Details: IMPRESSION No acute intracranial abnormality. Left frontal scalp contusion without underlying calvarial fracture. Preliminary Report Dictated by Resident: Too Lockhart This result has not been signed. Information might be incomplete. Risk OTC drugs. Prescription drug management. Flowsheet Documentation: Scoring Tools: No data recorded Disposition/Condition: ED Disposition ED Disposition Disch - Home Condition Stable Comment -- Discharge Medications: Patient's Medications START taking these medications No medications on file CONTINUE taking these medications which have NOT CHANGED ASPIRIN 81 MG CHEWABLE TABLET Take 1 tablet by mouth daily with breakfast. ATORVASTATIN 40 MG TABLET Take 1 tablet by mouth at bedtime. BACITRACIN 500 UNIT/GRAM OINTMENT Apply to affected area(s) 4 (four) times daily. GLIPIZIDE 5 MG TABLET Take 1 tablet by mouth daily. LOPERAMIDE HCL 2 MG TAB TABLET Take 1 tablet by mouth before meals. METFORMIN 1,000 MG TABLET Take 1 tablet by mouth 2 (two) times daily with meals. MUPIROCIN 2 % OINTMENT APPLY OINTMENT TOPICALLY TWICE DAILY SODIUM HYPOCHLORITE 0.5% SOLUTION Apply to area(s) daily. START taking Modified Medications as Prescribed No medications on file STOP taking these medications No medications on file Follow-up: [facility] Relationship: PCP - General [address] [facility] [id number] Electronically signed by: Char Nino FNP 08/02/24 4478 Associated attestation - Doron Amor DO - 08/02/2024 8:34 PM CDT This patient was examined, evaluated and cared for by the advanced practice provider. I did not examine or evaluate this patient. I was present for consultation as needed. [facility] 2024-03-12 09:27:17 I discussed the lab findings [...] for his time and ended the call. -Torito Kirkland [facility] 2023-06-28 13:04:39 Formatting of this n ote [...] with steady gait, in no apparent distress, [facility] 2023-06-28 10:46:05 Formatting of this n ote might be different from the original. Patient to ED for sores all over body for 1 month. He was seen here last month and didn't get a prescription per patient. Richie Link RN [facility]
[2024-08-13] MEDS ORDERED: NA CHLORIDE 0.9% 1,000 ML ONE ×2 (09:07→10:38)
--- NOTE | 2024-08-13 09:36 | RAD REPORT ---
EXAMINATION: ONE VIEW CHEST XR CLINICAL INDICATION: Male, 58 years old.Abdominal distention;Cough TECHNIQUE: 1 View, AP supine, X-ray of the chest was performed. [id number]. COMPARISON: 06/21/2024 FINDINGS: Lungs and pleura: Clear lungs. No effusion. Heart and mediastinum: Normal heart size. Unremarkable mediastinal contours. Osseous structures: No acute abnormality. Tubes/lines: None Other: None. IMPRESSION: No acute intrathoracic abnormality.
[2024-08-13 09:40] LABS: Absolute Basophils 0.1 K/uL (0-0.5); Absolute Lymphocytes (CBC) 1.6 K/uL (0.7-4.9); Absolute Monocytes 0.3 K/uL (0.1-1.3); Absolute Neutrophil 6.6 K/uL (1.8-8.0); Basophils % 0.8 % (0-1.3); Eosinophils % 0.3 % (0-4.4); Hematocrit 42.5 % (39.6-49.0); Hemoglobin 14.2 g/dL (13.6-17.9); Lymphocytes % 18.5 % (15.3-44.8); MCH 29.4 pg (27.0-35.0); MCHC 33.4 g/dL (32.0-36.0); Monocytes % 3.2 % (3.3-12.3); Neutrophils % 77.2 % (41.7-73.7); PT Prothrombin Time 11.4 SECONDS (9.4-12.5); Platelets 368 thou/uL (152-406); Protime INR 1.02; RBC Red Blood Cell Count 4.83 M/uL (4.33-5.43); Red Cell Distribution Width 13.8 % (12.1-15.2)
[2024-08-13 09:44] LABS: Sqamous Epithelial <5 /HPF (None Seen); Urine Bacteria <20 /HPF (<20); Urine Bilirubin NEGATIVE (Negative); Urine Blood Trace (Negative); Urine Clarity Clear (Clear); Urine Color Light-Yellow (Yellow); Urine Culture Reflex Order NOT NEEDED; Urine Glucose 4+ (Over) (Negative); Urine Ketones TRACE (Negative); Urine Microscopic Reflex YN ORDER UMIC; Urine Mucus Slight /HPF (None Seen); Urine Nitrite NEGATIVE (Negative); Urine Protein TRACE (Negative); Urine RBC <5 /HPF (None Seen); Urine Urobilinogen Normal (Normal); Urine WBC <5 /HPF (<5); Urine pH 5.5 (5.0-7.0)
[2024-08-13 10:00] LABS: AST/SGOT < 10 U/L (15-37); Albumin 3.8 g/dL (3.4-5.0); Albumin/Globulin Ratio 0.7 (1.1-1.8); Alkaline Phosphatase 112 U/L (45-117); Anion Gap 13.1 mEq/L (5.0-15.0); BUN Blood Urea Nitrogen 19 mg/dL (7-18); Bicarbonate 27 mEq/L (21-32); Bilirubin Direct 0.2 mg/dL (0-0.2); Bilirubin Indirect, Calculated 0.9 mg/dL (0.2-0.8); Bilirubin Total 1.1 mg/dL (0.2-1.0); Globulin 5.2 g/dL (2.3-3.5); Glomerular Filtration Rate 46 ml/min (=/>90); Lipase 25 U/L (13-75); Magnesium 2.2 mg/dL (1.6-2.4); NT PRO-BNP 149 pg/mL (<125); Potassium 4.1 mEq/L (3.5-5.1); Sodium Level 132 mEq/L (136-145); Troponin High Sensitivity 5.1 pg/mL (<58.9)
[2024-08-13 10:01] LABS: ALT/SGPT < 14 U/L (16-61)
[2024-08-13 10:02] LABS: Glucose Level 409 mg/dL (74-106)
--- NOTE | 2024-08-13 10:19 | RAD REPORT ---
EXAMINATION: CT ABDOMEN AND PELVIS WITH CONTRAST CLINICAL INDICATION: Male, 58 years old.ABD PAIN TECHNIQUE: CT abdomen and pelvis was performed, after the administration of IV contrast, as per depar tment protocol. Axial, sagittal and coronal reconstructions were obtained. One or more of the following dose reduction techniques were used: Automated exposure control, adjustment of the mA and/o r kV according to patient size, and/or iterative reconstruction. Unless otherwise specified, incidental findings do not require dedicated imaging follow-up. [id number]. COMPARISON: No prior exam. FINDINGS: LOWER CHEST: Mild circumferential thickening distal esophagus which could reflect mild esophagitis. LIVER: Normal in size and contour. No focal lesion. GALLBLADDER/BILE DUCT: Irregular gallbladder wall thickening is present. No calcified stones. No daryl cholecystic inflammatory changes. This could reflect adenomyomatosis.?The common bile duct is dilated measuring 9 mm. No radiopaque stones identified. PANCREAS: No significant abnormality. SPLEEN: Normal size. No focal lesion. ADRENALS: 2.8 cm indeterminate left adrenal nodule. KIDNEYS AND URETERS: Normal size and contour. No hydronephrosis. GASTROINTESTINAL TRACT: Stomach is non-dilated. Small bowel has normal course and caliber. No colonic wall thickening or pericolonic inflammatory changes. PERITONEUM: No ascites. LYMPH NODES: No lymphadenopathy. ABDOMINAL AORTA AND OTHER VESSELS: Normal caliber aorta and IVC. Atherosclerosis. URINARY BLADDER: Normal contour. REPRODUCTIVE ORGANS: No pathologic process MUSCULOSKELETAL: No acute or suspicious osseous abnormality. ADDITIONAL FINDINGS: None. IMPRESSION: 1. Dilated common bile duct without obstructing mass identified. Cannot exclude choledocholithiasis. Correlate with LFTs. The gallbladder is also distended with areas of slight nodular wall thickening and enhancement that could reflect adenomyomatosis. Consider right upper quadrant ultrasound. The com mon bile duct could be better evaluated with MRCP if clinically indicated. 2. Indeterminate left adrenal nodule. Nonemergent adrenal protocol MRI or CT is recommend for further evaluation. 3.
[2024-08-13] MEDS ORDERED: NA CHLORIDE 0.9% 100 ML ONE (10:38)
[2024-08-13] MEDS ORDERED: PIPERACIL/TAZO 3.375 GM VIAL IV ONE (10:38)
--- NOTE | 2024-08-13 10:43 | ER ---
Nurse's Notes [facility] Name: Lino Ward Age: 58 yrs Sex: Male : 1965 Arrival Date: 08/13/2024 Time: 08:07 Bed 15 Private MD: Diagnosis: Chest pain, unspecified;Abdominal tenderness;Abnormal findings on diagnostic imaging of liver and biliary tract-dilated CBD 9 MM;Type 2 diabetes mellitus with hyperglycemia Presentation: 08/13 08:27 Chief complaint: Patient states: epigastric pain X 3 days with vomiting , his belly iw button is bleeding for 4 days, his legs feels weak and he has a headache. Coronavirus screen: Client presents with at least one sign or symptom that may indicate coronavirus-19. Ebola Screen: No symptoms or risks identified at this time. Initial Sepsis Screen: Does the patient meet any 2 criteria? No. Patient's initial sepsis screen is negative. Does the patient have a suspected source of infection? No. Patient's initial sepsis screen is negative. Risk Assessment: Do you want to hurt yourself or someone else? Patient reports no desire to harm self or others. Onset of symptoms was August 09, 2024. 08:27 Method Of Arrival: Ambulatory iw 08:27 Acuity: MARITZA 3 iw Historical: - Allergies: 08:29 Morphine; iw - PMHx: 08:29 Diabetes - NIDDM; Hypertension; iw - PSHx: 08:29 Appendectomy; iw - Immunization history:: Adult Immunizations not up to date. - Infectious Disease History:: Denies. - Social history:: Smoking status: Patient denies any tobacco usage or history of. Screenin:23 [facility] ED Fall Risk Assessment (Adult) History of falling in the last 3 months, ko1 including since admission No falls in past 3 months (0 pts) Confusion or Disorientation No (0 pts) Intoxicated or Sedated No (0 pts) Impaired Gait Yes (1 pt) Mobility Assist Device Used Yes (1 pt) Altered Elimination No (0 pt) Score/Fall Risk Level 0 - 2 = Low Risk Oriented to surroundings, Maintained a safe environment, Educated pt \T\ family on fall prevention, incl call for assistance when getting out of bed, Hourly rounding (assess needs \T\ fall precautionary measures) done. Abuse screen: Denies threats or abuse. Denies injuries from another. Nutritional screening: No deficits noted. Tuberculosis screening: No symptoms or risk factors identified. Assessment: 12:10 General: Appears ill, well groomed, well developed, well nourished, Behavior is calm, me1 cooperative, appropriate for age, Reports epigastric pain X 3 days with vomiting , his belly button is bleeding for 4 days, his legs feels weak and he has a headache. Pain: Complains of pain in epigastric area and chest Pain radiates to back Pain currently is 3 out of 10 on a pain scale. at worst was 10 out of 10 on a pain scale. Quality of pain is described as sharp, shooting, Pain began 2-3 days ago. Is continuous. Neuro: Level of Consciousness is awake, alert, obeys commands, Oriented to person, place, time, situation, Appropriate for age. Cardiovascular: Patient's skin is warm and dry. Respiratory: Airway is patent Respiratory effort is even, unlabored, Respiratory pattern is regular, symmetrical. GI: Reports nausea, vomiting, since 3 days ago. GI: Reports upper abdominal pain. : No signs and/or symptoms were reported regarding the genitourinary system. EENT: No signs and/or symptoms were reported regarding the EENT system. Derm: Skin is intact, is healthy with good turgor, Skin is pink, warm \T\ dry. Musculoskeletal: No signs and/or symptoms reported regarding the musculoskeletal system. Vital Signs: 08:27 BP 104 / 90; Pulse 99; Resp 16; Temp 97.6; Pulse Ox 100% on R/A; Weight 72.57 kg; iw Height 5 ft. 5 in. ; Pain 10/10; 11:30 BP 128 / 89; Pulse 91; Resp 18; Pulse Ox 100% ; me1 12:30 BP 134 / 82; Pulse 94; Resp 18; Pulse Ox 100% ; me1 13:30 BP 126 / 87; Pulse 86; Resp 17; Temp 98.1; Pulse Ox 100% ; me1 13:36 Pain 3/10; me1 08:27 Body Mass Index 26.63 (72.57 kg, 165.1 cm) iw 08:27 Pain Scale: Adult iw 13:36 Pain Scale: Adult me1 ED Course: 08:08 Patient arrived in ED. im 08:28 Triage completed. iw 08:29 Arm band placed on. iw 08:31 Dex Flores MD is Attending Physician. martinez 08:52 Lori Clayton, RN is Primary Nurse. ko1 09:13 XRAY Chest (1 view) In Process Unspecified. EDMS 09:23 Patient has correct armband on for positive identification. Allergy band placed. Bed in ko1 low position. Call light in reach. Side rails up X 1. Provided Education on: labs. Client placed on continuous cardiac and pulse oximetry monitoring. NIBP monitoring applied. manager group on. Door closed. Noise minimized. Lights dimmed. Warm blanket given. Pillow given. Assisted to bathroom. 09:23 Lipase Sent. ko1 09:23 Urinalysis w/ reflexes Sent. ko1 09:23 Basic Metabolic Panel Sent. ko1 09:23 CBC with Diff Sent. ko1 09:23 LFT's Sent. ko1 09:23 Magnesium Sent. ko1 09:23 NT PRO-BNP Sent. ko1 09:23 PT-INR Sent. ko1 09:23 Troponin HS Sent. ko1 09:23 No provider procedures requiring assistance completed. Inserted saline lock: 22 gauge ko1 in right antecubital area, using aseptic technique. Blood collected. Flushed with 10 mL NS. 10:05 CT Abd/Pelvis - IV Contrast Only In Process Unspecified. EDMS 10:59 US Abdomen Limited In Process Unspecified. EDMS 11:15 initiate transfer with [facility]. bc6 11:48 Doc to Doc done. bc6 12:10 Patient transferred, IV remains in place. me1 12:13 Report given to Flori Armijo RN. ko1 12:[address] Quoc Brasher at [facility] room 961. bc6 13:15 gigi with [facility] accepted transfer given ETA of 15 minutes. bc6 Administered Medications: 09:23 Drug: NS 0.9% IV 1000 ml IV at 1 bolus Per protocol; 1000 mL bolus Route: IV; Rate: 1 ko1 bolus; Site: right antecubital; 10:41 Follow up: Response: No adverse reaction; IV Status: Completed infusion; IV Intake: ko1 1000ml 11:14 Drug: Insulin Glargine Sub-Q 30 units Sub-Q once {Co-Signature: bp (Dani Renee RN).} Route: Sub-Q; Site: abdomen; 11:44 Follow up: Response: No adverse reaction ko1 11:15 Drug: fentaNYL (PF) IVP 25 mcg IVP once Route: IVP; Site: right antecubital; ko1 11:30 Follow up: Response: No adverse reaction ko1 11:15 Drug: Ondansetron IVP 4 mg IVP once; over 2 minutes Route: IVP; Site: right antecubital;ko1 11:30 Follow up: Response: No adverse reaction ko1 11:15 Drug: Insulin Regular Human IVP 10 units IVP once {Co-Signature: bp (Dani Renee1 RN).} Route: IVP; Site: right antecubital; 11:30 Follow up: Response: No adverse reaction ko1 11:16 Drug: Piperacillin-Tazobactam IVPB 3.375 grams IVPB once over 60 mins; (mix in NS 100 ko1 mL) Route: IVPB; Infused Over: 60 mins; Site: right antecubital; 12:16 Follow up: Response: No adverse reaction; IV Status: Completed infusion; IV Intake: me1 100ml 11:16 Drug: NS 0.9% IV 1000 ml IV at 125 ml/hr continuous Route: IV; Rate: 125 ml/hr; Site: ko1 right antecubital; 13:37 Follow up: IV Status: Infusion continued upon transfer me1 11:16 Drug: Famotidine IVP 20 mg IVP once; dilute with 10 mL 0.9% NaCl; give over 2 minutes ko1 Route: IVP; Site: right antecubital; 11:31 Follow up: Response: No adverse reaction ko1 12:01 Drug: fentaNYL (PF) IVP 25 mcg IVP once Route: IVP; Site: right antecubital; ko1 13:36 Follow up: Pain 3/10 Adult; Response: No adverse reaction; Pain is decreased me1 Medication: 09:23 VIS not applicable for this client. ko1 Point of Care Testing: Blood Glucose: 13:31 Blood Glucose: 118 mg/dL; me1 Ranges: Intake: 10:41 IV: 1000ml; Total: 1000ml. ko1 12:16 IV: 100ml; Total: 1100ml. me1 Outcome: 10:42 ER care complete, transfer ordered by MD. henriquez 13:42 Transferred by ground EMS [place] [facility] [facility] [place]. me1 X-rays sent w/ patient. 13:42 Condition: stable 13:42 Instructed on the need for transfer, 13:43 Transferred Note: Report given by NIKA Squires me1 13:44 Patient left the ED. me1 Signatures: Dispatcher [employer] Dex Whiteside MD MD cha Williams, Irene, RN RN Lori Clayton RN RN [facility] Lou Gallegos [facility] Cynthia Ferreira Michelle, RN RN me1 Dani Renee RN bp Corrections: (The following items were deleted from the chart) 11:27 11:25 initiate transfer with [place] [id number] 13:33 08:27 Chief complaint: Patient states: epigastric pain X 3 days with vomiting , his me1 belly button is bleeding for 4 days, his legs feels weak and he has a headache iw 13:37 13:37 Response: No adverse reaction; IV Status: Completed infusion; IV Intake: 100ml me1me1
--- NOTE | 2024-08-13 10:43 | EDPHYS ---
Physician Documentation [facility] Name: Lino Ward Age: 58 yrs Sex: Male : 1965 Arrival Date: 08/13/2024 Time: 08:07 Bed 15 Private MD: ED Physician Dex Flores HPI: 08/13 10:34 This 58 yrs old Male presents to ER via Ambulatory with complaints of Weakness martinez - of the feet, Epigastric Pain, Chills, Vomiting, belly button bleeding, Headache. 10:34 The patient presents to the emergency department with weakness of the entire body, martinez generalized weakness. Historical: - Allergies: 08: Morphine; iw - PMHx: 08:29 Diabetes - NIDDM; Hypertension; iw - PSHx: 08: Appendectomy; iw - Immunization history:: Adult Immunizations not up to date. - Infectious Disease History:: Denies. - Social history:: Smoking status: Patient denies any tobacco usage or history of. ROS: 10:34 Constitutional: Negative for fever, chills, and weight loss, Eyes: Negative for injury, martinez pain, redness, and discharge, ENT: Negative for injury, pain, and discharge, Neck: Negative for injury, pain, and swelling, Respiratory: Negative for shortness of breath, cough, wheezing, and pleuritic chest pain, Back: Negative for injury and pain, : Negative for injury, bleeding, discharge, and swelling, MS/Extremity: Negative for injury and deformity, Skin: Negative for injury, rash, and discoloration, Neuro: Negative for headache, weakness, numbness, tingling, and seizure, Psych: Negative for depression, anxiety, suicide ideation, homicidal ideation, and hallucinations, Allergy/Immunology: Negative for hives, rash, and allergies, Endocrine: Negative for neck swelling, polydipsia, polyuria, polyphagia, and marked weight changes, 10:34 Cardiovascular: Positive for chest pain, of the chest, 10:34 Abdomen/GI: Positive for abdominal pain, nausea, abdominal cramps, abdominal distension, of the epigastric area, Exam: 10:34 Constitutional: This is a well developed, well nourished patient who is awake, alert, martinez and in no acute distress. Head/Face: Normocephalic, atraumatic. Eyes: Pupils equal round and reactive to light, extra-ocular motions intact. Lids and lashes normal. Conjunctiva and sclera are non-icteric and not injected. Cornea within normal limits. Periorbital areas with no swelling, redness, or edema. ENT: Nares patent. No nasal discharge, no septal abnormalities noted. Tympanic membranes are normal and external auditory canals are clear. Oropharynx with no redness, swelling, or masses, exudates, or evidence of obstruction, uvula midline. Mucous membranes moist. Neck: Trachea midline, no thyromegaly or masses palpated, and no cervical lymphadenopathy. Supple, full range of motion without nuchal rigidity, or vertebral point tenderness. No Meningismus. Chest/axilla: Normal chest wall appearance and motion. Nontender with no deformity. No lesions are appreciated. Cardiovascular: Regular rate and rhythm with a normal S1 and S2. No gallops, murmurs, or rubs. Normal PMI, no JVD. No pulse deficits. Respiratory: Lungs have equal breath sounds bilaterally, clear to auscultation and percussion. No rales, rhonchi or wheezes noted. No increased work of breathing, no retractions or nasal flaring. Back: No spinal tenderness. No costovertebral tenderness. Full range of motion. Male : Normal genitalia with no discharge or lesions. Skin: Warm, dry with normal turgor. Normal color with no rashes, no lesions, and no evidence of cellulitis. MS/ Extremity: Pulses equal, no cyanosis. Neurovascular intact. Full, normal range of motion. Neuro: Awake and alert, GCS 15, oriented to person, place, time, and situation. Cranial nerves II-XII grossly intact. Motor strength 5/5 in all extremities. Sensory grossly intact. Cerebellar exam normal. Normal gait. Psych: Awake, alert, with orientation to person, place and time. Behavior, mood, and affect are within normal limits. 10:34 ECG was reviewed by the Attending Physician. Vital Signs: 08:27 BP 104 / 90; Pulse 99; Resp 16; Temp 97.6; Pulse Ox 100% on R/A; Weight 72.57 kg; iw Height 5 ft. 5 in. ; Pain 10/10; 11:30 BP 128 / 89; Pulse 91; Resp 18; Pulse Ox 100% ; me1 12:30 BP 134 / 82; Pulse 94; Resp 18; Pulse Ox 100% ; me1 13:30 BP 126 / 87; Pulse 86; Resp 17; Temp 98.1; Pulse Ox 100% ; me1 13:36 Pain 3/10; me1 08:27 Body Mass Index 26.63 (72.57 kg, 165.1 cm) iw 08:27 Pain Scale: Adult iw 13:36 Pain Scale: Adult me1 MDM: 08:31 Patient medically screened. martinez 10:36 Differential diagnosis: abnormal EKG, acute myocardial infarction, acute pericarditis, martinez anxiety, cholecystitis, Cholelithiasis costochondritis, esophagitis, herpes zoster, pancreatitis, peptic ulcer disease, pneumonia, pulmonary embolus, stable angina, unstable angina, appendicitis, bowel obstruction, gastritis, Mesenteric ischemia or infarction, non-specific abd pain, pancreatitis, Peptic Ulcer Disease, Peritonitis, Prostatitis, Ureterolithiasis, urinary tract infection. Differential Diagnosis flu. HEART Score: History: Slightly Suspicious (0), ECG: Non specific repolarization disturbance / LBTB / PM (1), Age: > 45 and < 65 years (1), Risk Factors: > or = 3 Risk factors for atherosclerotic disease (2), [Hypercholesterolemia] [Hypertension] [DM] [+ Family HX] [Obesity] Troponin: < or = 1 x Normal Limit (0). The patient was not given aspirin in the Emergency Department. Not indicated due to patient's past medical history. DEBORAH Risk Score: 1 - Three or more CAD risk factors, 1 - Recent [<24hrs] Severe Angina, TOTAL SCORE = 2. Data reviewed: vital signs, nurses notes, lab test result(s), EKG, radiologic studies, plain films. Consideration of Admission/Observation Escalation of care including admission/observation considered. I considered the following discharge prescriptions or medication management in the emergency department Medications were administered in the Emergency Department. See MAR. Independent interpretation of the following test(s) in the Emergency Department EKG: See my EKG interpretation above. Care significantly affected by the following chronic conditions: Diabetes, Hypertension, Obesity. 08/13 08:32 Order name: Basic Metabolic Panel; Complete Time: 10:31 martinez 08/13 08:32 Order name: CBC with Diff; Complete Time: 10:31 martinez 08/13 08:32 Order name: LFT's; Complete Time: 10:31 martinez 08/13 08:32 Order name: Magnesium; Complete Time: 10:31 [facility] 08/13 08:32 Order name: NT PRO-BNP; Complete Time: 10:31 [facility] 08/13 08:32 Order name: PT-INR; Complete Time: 10:31 [facility] 08/13 08:32 Order name: Troponin HS; Complete Time: 10:31 [facility] 08/13 08:32 Order name: Urinalysis w/ reflexes; Complete Time: 10:31 [facility] 08/13 08:32 Order name: Lipase; Complete Time: 10:31 [facility] 08/13 13:38 Order name: glucometer results - FOR PT WITH NO ID wa1 08/13 13:43 Order name: Glucose, Ancillary Testing EDMS 08/13 08:32 Order name: XRAY Chest (1 view); Complete Time: 10:31 [facility] 08/13 08:32 Order name: CT Abd/Pelvis - IV Contrast Only; Complete Time: 10:31 [facility] 08/13 10:40 Order name: US Abdomen Limited [facility] 08/13 08:32 Order name: EKG; Complete Time: 08:33 [facility] 08/13 08:32 Order name: Cardiac monitoring; Complete Time: 08:52 [facility] 08/13 08:32 Order name: EKG - Nurse/Tech; Complete Time: 08:52 [facility] 08/13 08:32 Order name: IV Saline Lock; Complete Time: 09:23 [facility] 08/13 08:32 Order name: Labs collected and sent; Complete Time: 09:23 [facility] 08/13 08:32 Order name: O2 Per Protocol; Complete Time: 08:52 [facility] 08/13 08:32 Order name: O2 Sat Monitoring; Complete Time: 08:52 [facility] EC:34 Rate is 95 beats/min. Rhythm is regular. QRS Hematite is Normal. DC interval is normal. QRS martinez interval is normal. QT interval is normal. No Q waves. T waves are Normal. No ST changes noted. Clinical impression: NSR w/ Non-specific ST/T Changes and No evidence of ischemia. Interpreted by me. Reviewed by me. Administered Medications: 09:23 Drug: NS 0.9% IV 1000 ml IV at 1 bolus Per protocol; 1000 mL bolus Route: IV; Rate: 1 ko1 bolus; Site: right antecubital; 10:41 Follow up: Response: No adverse reaction; IV Status: Completed infusion; IV Intake: ko1 1000ml 11:14 Drug: Insulin Glargine Sub-Q 30 units Sub-Q once {Co-Signature: bp (Dani Renee RN).} Route: Sub-Q; Site: abdomen; 11:44 Follow up: Response: No adverse reaction ko1 11:15 Drug: fentaNYL (PF) IVP 25 mcg IVP once Route: IVP; Site: right antecubital; ko1 11:30 Follow up: Response: No adverse reaction ko1 11:15 Drug: Ondansetron IVP 4 mg IVP once; over 2 minutes Route: IVP; Site: right antecubital;ko1 11:30 Follow up: Response: No adverse reaction ko1 11:15 Drug: Insulin Regular Human IVP 10 units IVP once {Co-Signature: bp (Dani Renee RN).} Route: IVP; Site: right antecubital; 11:30 Follow up: Response: No adverse reaction ko1 11:16 Drug: Piperacillin-Tazobactam IVPB 3.375 grams IVPB once over 60 mins; (mix in NS 100 ko1 mL) Route: IVPB; Infused Over: 60 mins; Site: right antecubital; 12:16 Follow up: Response: No adverse reaction; IV Status: Completed infusion; IV Intake: me1 100ml 11:16 Drug: NS 0.9% IV 1000 ml IV at 125 ml/hr continuous Route: IV; Rate: 125 ml/hr; Site: ko right antecubital; 13:37 Follow up: IV Status: Infusion continued upon transfer me1 11:16 Drug: Famotidine IVP 20 mg IVP once; dilute with 10 mL 0.9% NaCl; give over 2 minutes ko1 Route: IVP; Site: right antecubital; 11:31 Follow up: Response: No adverse reaction ko1 12:01 Drug: fentaNYL (PF) IVP 25 mcg IVP once Route: IVP; Site: right antecubital; ko1 13:36 Follow up: Pain 3/10 Adult; Response: No adverse reaction; Pain is decreased me1 Point of Care Testing: Blood Glucose: 13:31 Blood Glucose: 118 mg/dL; wa1 Ranges: Critical Glucose Levels:Adult <50 mg/dl or >400 mg/dl <40 mg/dl or >180 mg/dl Disposition Summary: 08/13/24 10:42 Transfer Ordered Notes: Transfer Location: [facility] martinez Reason: Higher level of care martinez Condition: Fair martinez Problem: new martinez Symptoms: have improved martinez Accepting Physician: to [facility](08/13/24 13:44) me1 Diagnosis - Chest pain, unspecified martinez - Abdominal tenderness martinez - Abnormal findings on diagnostic imaging of liver and biliary tract - dilated CBD 9 martinez MM - Type 2 diabetes mellitus with hyperglycemia martinez Forms: - Medication Reconciliation Form martinez - SBAR form martinez Signatures: Dispatcher [employer] EDMS Dex Flores MD MD cha Williams, Irene, RN RN iw Lori Clayton RN RN ko1 Flori Kramer RN RN me1 Dani Renee RN bp Corrections: (The following items were deleted from the chart) 08:33 08:33 BASIC METABOLIC PANEL+C.LAB.BRZ ordered. EDMS EDMS 08:33 08:33 CBC+H.LAB.BRZ ordered. EDMS EDMS 08:33 08:33 HEPATIC FUNCTION+C.LAB.BRZ ordered. EDMS EDMS 08:33 08:33 MAGNESIUM+C.LAB.BRZ ordered. EDMS EDMS 08:33 08:33 PROBNP+C.LAB.BRZ ordered. EDMS EDMS 08:33 08:33 PROTIME (+INR)+COAG.LAB.BRZ ordered. EDMS EDMS 08:33 08:33 Troponin High Sensitivity+C.LAB.BRZ ordered. EDMS EDMS 08:33 08:33 Urinalysis+U.LAB.BRZ ordered. EDMS EDMS 08:33 08:33 LIPASE+C.LAB.BRZ ordered. EDMS EDMS 10:40 10:40 Abdomen Limited+US.RAD.BRZ ordered. EDMS EDMS 10:42 10:42 to [facility] martinez martinez 13:14 10:38 Cholangiogram ordered. EDMS EDMS 13:44 10:42 to [facility] martinez me1
[2024-08-13] MEDS ORDERED: ONDANSETRON 4 MG/2 ML VIAL ONE (11:05)
[2024-08-13] MEDS ORDERED: FENTANYL CITR 100 MCG/2 ML ONE (11:05)
[2024-08-13] MEDS ORDERED: FAMOTIDINE 20 MG/2 ML VIAL IV ONE (11:06)
[2024-08-13] MEDS ORDERED: INSULIN REGULAR (HUMAN) 100 UNIT/ML ONE (11:08)
[2024-08-13] MEDS ORDERED: INSULIN GLARGINE 100 UNIT/ML SQ ONE (11:08)
--- NOTE | 2024-08-13 11:12 | RAD REPORT ---
Abdomen Exam Limited: 08/13/2024 10:57 AM CLINICAL HISTORY: ABD PAIN STUDY: Limited right upper quadrant ultrasound of abdomen. COMPARISON: Same day CT FINDINGS: Liver: No significant abnormality. Bile ducts: Dilated common bile duct measuring 10 mm. Gallbladder: Gallstones with multiple echogenic foci in the wall of the gallbladder. No gallbladder w all thickening. No pericholecystic fluid. A sonographic Angel sign was reported. IMPRESSION: Cholelithiasis. No gallbladder wall thickening or pericholecystic fluid. A sonographic Angel sign wa s reported, however. Acute cholecystitis difficult to exclude in the appropriate clinical setting. The common bile duct is dilated at 10 mm. An MRCP is pending.
[2024-08-13 14:14] VITALS: O2SAT 100
[2024-08-13 14:18] VITALS: BP 126/87; TEMP 98.1
--- NOTE | 2024-08-13 16:51 | EKG ---
Test Date: 2024-08-13 Test Time: 08:36:37 Purchase Analyst: RAOUL MEASUREMENT RESULTS: Intervals: Rate: 95 WI: 184 QRSD: 86 QT: 332 QTc: 417 [place]: P: 42 WI: 184 QRS: 43 T: 74 INTERPRETIVE STATEMENTS: Normal sinus rhythm Normal ECG Compared to ECG 06/21/2024 09:46:03 No significant changes Electronically Signed On 08-13-24 16:49:58 CDT by Ervin Gabriel
== END 2024-08-13 13:44 | disposition short-term general hospital (02) ==
LOC: ER 08:07
DX: R07.9 Chest pain, unspecified (principal); R10.816 Epigastric abdominal tenderness; K83.8 Other specified diseases of biliary tract; E11.65 Type 2 diabetes mellitus with hyperglycemia; I10 Essential (primary) hypertension
CPT/HCPCS: 36415; 71045; 74177; 76705; 80048; 80076; 81001; 82947; 83690; 83735; 83880; 84484; 85025; 85610; 93005; 96361; 96365; 96372; 96375; 99285; J2405; J2543; J3010; J7030; Q9967

== ENCOUNTER 2025-07-21 20:34 | Emergency (ER) | payer SELFPAY ==
--- NOTE | 2025-07-21 21:23 | ER ---
Nurse's Notes [facility] Name: Lino Ward Age: 59 yrs Sex: Male : 1965 Arrival Date: 07/21/2025 Time: 20:34 Bed 19 Private MD: Diagnosis: Cellulitis and acute lymphangitis of other parts of limb-left upper arm;Cutaneous abscess of left upper limb-worse;Type 2 diabetes mellitus with hyperglycemia;Fever, unspecified;UTI/ Urinary tract infection, site not specified;Hypokalemia Presentation: 07/21 20:42 Chief complaint: Patient's son or daughter states: patient left arm is swelling that rg5 started last \T\ getting worst everyday. pain scale is 10/10. 20:42 Coronavirus screen: Client denies travel out of the [place] in the last 14 days. Ebola rg5 Screen: Patient negative for fever greater than or equal to 101.5 degrees Fahrenheit, and additional compatible Ebola Virus Disease symptoms Patient denies exposure to infectious person. Patient denies travel to an Ebola-affected area in the 21 days before illness onset. Initial Sepsis Screen: Does the patient meet any 2 criteria? No. Patient's initial sepsis screen is negative. Does the patient have a suspected source of infection? No. Patient's initial sepsis screen is negative. Risk Assessment: Do you want to hurt yourself or someone else? Patient reports no desire to harm self or others. Onset of symptoms was July 21, 2025. 20:42 Method Of Arrival: Ambulatory rg5 20:42 Acuity: MARITZA 3 rg5 Triage Assessment: 20:56 General: Appears uncomfortable, Behavior is calm, cooperative, appropriate for age. rg5 Pain: Complains of pain in left bicep Pain currently is 10 out of 10 on a pain scale. Quality of pain is described as aching. EENT: No signs and/or symptoms were reported regarding the EENT system. Neuro: Level of Consciousness is awake, alert, obeys commands, Oriented to person, place, time, situation. Cardiovascular: Denies chest pain, Patient's skin is warm and dry. Respiratory: Airway is patent Trachea midline Respiratory effort is even, unlabored, Respiratory pattern is regular, symmetrical. GI: No signs and/or symptoms were reported involving the gastrointestinal system. :. Derm: Skin is fragile, Skin is dry, Skin is normal. Musculoskeletal: Circulation, motion, and sensation intact. Range of motion: intact in all extremities, Swelling present in left bicep. Historical: - Allergies: 20:56 Morphine; rg5 - PMHx: 20:56 Diabetes - NIDDM; Hypertension; rg5 - PSHx: 20:56 Appendectomy; rg5 - Immunization history:: Adult Immunizations up to date. - Infectious Disease History:: Denies. - Social history:: Smoking status: Patient denies any tobacco usage or history of. - Family history:: not pertinent. Screenin:56 [facility] ED Fall Risk Assessment (Adult) History of falling in the last 3 months, kt5 including since admission No falls in past 3 months (0 pts) Confusion or Disorientation No (0 pts) Intoxicated or Sedated No (0 pts) Impaired Gait Yes (1 pt) Mobility Assist Device Used Yes (1 pt) Altered Elimination Yes (1 pt) Score/Fall Risk Level 3 or more points = High Risk Oriented to surroundings, Maintained a safe environment, Educated pt \T\ family on fall prevention, incl call for assistance when getting out of bed. Abuse screen: Denies threats or abuse. Nutritional screening: No deficits noted. Tuberculosis screening: No symptoms or risk factors identified. Assessment: 20:56 General: Appears in no apparent distress. uncomfortable, Behavior is calm, cooperative. kt5 Pain: Complains of pain in left axilla and left tricep Pain currently is 10 out of 10 on a pain scale. Quality of pain is described as burning, sharp, Pain began gradually, Is continuous. Neuro: No deficits noted. Anguiano Agitation-Sedation Scale (RASS): 0 - Alert and Calm Level of Consciousness is awake, alert, obeys commands, Oriented to person, place, time, situation, Appropriate for age. Cardiovascular: No deficits noted. Denies chest pain, Heart tones S1 S2 present Capillary refill < 3 seconds Clubbing of nail beds is absent JVD is absent. Respiratory: No deficits noted. Airway is patent Trachea midline Respiratory effort is even, unlabored, Respiratory pattern is regular, symmetrical. GI: No deficits noted. No signs and/or symptoms were reported involving the gastrointestinal system. Abdomen is round non-distended, Bowel sounds present X 4 quads. Abd is soft and non tender X 4 quads. : Kinney in place to gravity drainage Reports urinary frequency. EENT: No deficits noted. No signs and/or symptoms were reported regarding the EENT system. Derm: redness, swelling and warm to touch on upper left arm. Musculoskeletal: Swelling present in left arm. 21:55 General: tech at bs for ultrasound . kt5 21:55 Reassessment: Patient appears in no apparent distress at this time. Patient and/or kt5 family updated on plan of care and expected duration. Pain level reassessed. Patient is alert, oriented x 3, equal unlabored respirations, skin warm/dry/pink. Patient states feeling better. Patient states symptoms have improved. 22:24 Reassessment: Patient appears in no apparent distress at this time. Patient and/or kt5 family updated on plan of care and expected duration. Pain level reassessed. Patient is alert, oriented x 3, equal unlabored respirations, skin warm/dry/pink. Patient states feeling better. Patient states symptoms have improved. 23:48 Reassessment: Patient appears in no apparent distress at this time. Patient and/or kt5 family updated on plan of care and expected duration. Pain level reassessed. Patient is alert, oriented x 3, equal unlabored respirations, skin warm/dry/pink. pt sleeping, easily arousable, nad, pt on monitors, v/s/s, call button in reach will cont to monitor, waiting dispo Patient states symptoms have improved. 07/22 00:17 General: tech at bs for pxr. kt5 00:23 General: admit md at bs for eval. kt5 01:06 Reassessment: Patient appears in no apparent distress at this time. Patient and/or kt5 family updated on plan of care and expected duration. Pain level reassessed. Patient is alert, oriented x 3, equal unlabored respirations, skin warm/dry/pink. Patient denies pain at this time. Patient states feeling better. Patient states symptoms have improved. 01:45 Reassessment: Patient appears in no apparent distress at this time. Patient and/or kt5 family updated on plan of care and expected duration. Pain level reassessed. Patient is alert, oriented x 3, equal unlabored respirations, skin warm/dry/pink. Patient denies pain at this time. Patient states feeling better. Patient states symptoms have improved. 02:38 Reassessment: Patient appears in no apparent distress at this time. Patient and/or kt5 family updated on plan of care and expected duration. Pain level reassessed. Patient is alert, oriented x 3, equal unlabored respirations, skin warm/dry/pink. Patient denies pain at this time. Patient states feeling better. Patient states symptoms have improved. 03:16 General: report given to melody matamoros, all questions answered. kt5 03:24 General: bs 226. kt5 03:30 Reassessment: Patient appears in no apparent distress at this time. Patient and/or kt5 family updated on plan of care and expected duration. Pain level reassessed. Patient is alert, oriented x 3, equal unlabored respirations, skin warm/dry/pink. Patient denies pain at this time. Patient states feeling better. Patient states symptoms have improved. Vital Signs: 07/21 20:56 Pulse 101; Resp 19; Temp 98.4; Pulse Ox 98% ; Weight 77.56 kg; Height 5 ft. 5 in. ; 5 Pain 10/10; 21:55 BP 158 / 73; Pulse 93; Resp 18; Pulse Ox 96% ; kt5 22:24 BP 152 / 70; Pulse 93; Resp 18; Pulse Ox 99% ; kt5 23:48 BP 129 / 96; Pulse 86; Resp 18; Pulse Ox 99% ; kt5 07/22 01:06 BP 136 / 68; Pulse 86; Resp 18; Pulse Ox 99% ; kt5 01:45 BP 141 / 85; Pulse 84; Resp 18; Pulse Ox 99% ; kt5 02:38 BP 118 / 68; Pulse 49; Resp 18; Pulse Ox 99% ; kt5 03:30 BP 141 / 79; Pulse 84; Resp 16; Temp 98.6; Pulse Ox 99% ; kt5 07/21 20:56 Body Mass Index 28.46 (77.56 kg, 165.1 cm) [facility] 07/21 20:56 Pain Scale: Adult 5 ED Course: 07/21 20:42 Patient arrived in ED. mr 20:43 Dex Flores MD is Attending Physician. [facility] 20:56 Triage completed. 5 20:56 Linnette Durbin RN is Primary Nurse. kt 20:56 Arm band placed on. rg 20:56 Placed in gown. Bed in low position. Call light in reach. Side rails up X 1. Adult w/ kt5 patient. Client placed on continuous cardiac and pulse oximetry monitoring. NIBP monitoring applied. lunchroom monitor on. Door closed. Noise minimized. Warm blanket given. Pillow given. 20:56 Accessed double lumen pic line to right upper arm Clean \T\ dry. Good blood return. kt5 Flushes easily. 21:50 Urine Culture Sent. kt5 21:50 Manual Differential Sent. kt5 21:51 Lactate w/ 2H reflex if indic. Sent. kt5 21:51 Blood Culture Adult (2) Sent. kt5 21:51 Basic Metabolic Panel Sent. kt5 21:51 CBC with Diff Sent. kt5 21:51 LFT's Sent. kt5 21:51 Magnesium Sent. kt5 21:51 NT PRO-BNP Sent. kt5 21:52 Troponin HS Sent. kt5 22:02 UPPER EXTREMITY VENOUS UNILATE In Process Unspecified. EDMS 22:08 XRAY Chest (1 view) In Process Unspecified. EDMS 23:49 Benny Luo MD is Hospitalizing Provider. [facility] 07/22 00:25 X-ray completed. Portable x-ray completed in exam room. [facility] 00:30 Humerus Left XRAY In Process Unspecified. EDMS 02:38 No provider procedures requiring assistance completed. kt5 Administered Medications: 07/21 21:50 Drug: fentaNYL (PF) IVP 25 mcg IVP once Route: IVP; Site: PICC; kt5 23:52 Follow up: Response: No adverse reaction; Pain is decreased kt5 21:50 Drug: Ondansetron IVP 8 mg IVP once; over 2 minutes Route: IVP; Site: PICC; kt5 23:52 Follow up: Response: No adverse reaction; Nausea is decreased kt5 21:50 Drug: Ampicillin-Sulbactam Sodium IVPB 3 grams IVPB once over 30 mins; (mix in 100 mL kt5 NS) Route: IVPB; Infused Over: 30 mins; Site: PICC; :17 Follow up: Response: No adverse reaction kt5 23:51 Follow up: Response: No adverse reaction; IV Status: Completed infusion kt5 21:51 Drug: NS 0.9% IV (30 ml/kg) 30 ml/kg IV at bolus once; Sepsis Protocol; to be given as kt5 a bolus over 90 minutes Route: IV; Rate: bolus; Site: PICC; 23:52 Follow up: Response: No adverse reaction; IV Status: Completed infusion kt5 22:20 Drug: vancoMYCIN IVPB 1 grams IVPB once over 2 hrs Route: IVPB; Infused Over: 2 hrs; kt5 Site: PICC; 07/22 00:19 Follow up: Response: No adverse reaction; IV Status: Completed infusion kt5 00:21 Drug: Potassium PO Effervescent Tablet 25 mEq PO once; dissolve in 4 ounces of water or kt5 juice Route: PO; 00:34 Follow up: Response: No adverse reaction kt5 01:47 Follow up: Response: No adverse reaction kt5 03:33 Drug: Insulin Glargine Sub-Q 30 units Sub-Q once {Co-Signature: vc1 (Rayna Garcia RN).} Route: Sub-Q; Site: left lower abdomen; 03:46 Follow up: Response: No adverse reaction kt5 Medication: 07/21 20:56 VIS not applicable for this client. kt5 Outcome: 21:22 ER care complete, transfer ordered by . [facility] 23:50 Decision to Hospitalize by Provider. [facility] 07/22 00:40 ER care complete, transfer ordered by . [facility] 03:46 Transferred by ground EMS kt5 03:46 Condition: stable 03:46 Discharge instructions given to family, EMS, Instructed on the need for transfer, 03:48 Patient left the ED. kt5 Signatures: Dispatcher [employer] Dex Whiteside MD MD cha Rivera, Mary, [facility] Dina Salomon 1 Rik Person RN RN [email or web address] Linnette Durbin RN RN kt5 Rayna Garcia RN vc1
--- NOTE | 2025-07-21 21:23 | EDPHYS ---
Physician Documentation [facility] Name: Lino Ward Age: 59 yrs Sex: Male : 1965 Arrival Date: 07/21/2025 Time: 20:34 Bed 19 Private MD: ED Physician Dex Flores HPI: 07/21 21:16 This 59 yrs old Male presents to ER via Ambulatory with complaints of Arm martinez swelling. 21:16 The patient presents with an abscess of the left arm, The patient presents with martinez cellulitis of the left arm. Description: The affected area is moderate sized, large, confluent, erythematous, fluctuant, hot, raised. Onset: The symptoms/episode began/occurred 1 week(s) ago. Possible cause(s): unknown. Associated signs and symptoms: Pertinent positives: fever, swelling. The patient or guardian complains of an abscess, pain, that is acute, swelling, tenderness. The complaints affect the left bicep, left antecubital area, left tricep and left elbow. Context: The problem was sustained at an unknown location. Historical: - Allergies: 20:56 Morphine; rg5 - PMHx: 20:56 Diabetes - NIDDM; Hypertension; rg5 - PSHx: 20:56 Appendectomy; rg5 - Immunization history:: Adult Immunizations up to date. - Infectious Disease History:: Denies. - Social history:: Smoking status: Patient denies any tobacco usage or history of. - Family history:: not pertinent. ROS: 21:16 Constitutional: Negative for fever, chills, and weight loss, Eyes: Negative for injury, martinez pain, redness, and discharge, ENT: Negative for injury, pain, and discharge, Neck: Negative for injury, pain, and swelling, Respiratory: Negative for shortness of breath, cough, wheezing, and pleuritic chest pain, Abdomen/GI: Negative for abdominal pain, nausea, vomiting, diarrhea, and constipation, Back: Negative for injury and pain, : Negative for injury, bleeding, discharge, and swelling, MS/Extremity: Negative for injury and deformity, Skin: Negative for injury, rash, and discoloration, Neuro: Negative for headache, weakness, numbness, tingling, and seizure, Psych: Negative for depression, anxiety, suicide ideation, homicidal ideation, and hallucinations, Allergy/Immunology: Negative for hives, rash, and allergies, Endocrine: Negative for neck swelling, polydipsia, polyuria, polyphagia, and marked weight changes, Hematologic/Lymphatic: Negative for swollen nodes, abnormal bleeding, and unusual bruising, 21:16 Cardiovascular: Positive for palpitations, 21:16 MS/extremity: Positive for decreased range of motion, pain, swelling, tenderness, warmth, of the left antecubital area and left arm and left bicep, 21:16 Skin: Positive for cellulitis, swelling, of the left arm, Exam: 21:16 Constitutional: This is a well developed, well nourished patient who is awake, alert, martinez and in no acute distress. Head/Face: Normocephalic, atraumatic. Eyes: Pupils equal round and reactive to light, extra-ocular motions intact. Lids and lashes normal. Conjunctiva and sclera are non-icteric and not injected. Cornea within normal limits. Periorbital areas with no swelling, redness, or edema. ENT: Nares patent. No nasal discharge, no septal abnormalities noted. Tympanic membranes are normal and external auditory canals are clear. Oropharynx with no redness, swelling, or masses, exudates, or evidence of obstruction, uvula midline. Mucous membranes moist. Neck: Trachea midline, no thyromegaly or masses palpated, and no cervical lymphadenopathy. Supple, full range of motion without nuchal rigidity, or vertebral point tenderness. No Meningismus. Chest/axilla: Normal chest wall appearance and motion. Nontender with no deformity. No lesions are appreciated. Cardiovascular: Regular rate and rhythm with a normal S1 and S2. No gallops, murmurs, or rubs. Normal PMI, no JVD. No pulse deficits. Respiratory: Lungs have equal breath sounds bilaterally, clear to auscultation and percussion. No rales, rhonchi or wheezes noted. No increased work of breathing, no retractions or nasal flaring. Abdomen/GI: Soft, non-tender, with normal bowel sounds. No distension or tympany. No guarding or rebound. No evidence of tenderness throughout. Back: No spinal tenderness. No costovertebral tenderness. Full range of motion. Male : Normal genitalia with no discharge or lesions. Neuro: Awake and alert, GCS 15, oriented to person, place, time, and situation. Cranial nerves II-XII grossly intact. Motor strength 5/5 in all extremities. Sensory grossly intact. Cerebellar exam normal. Normal gait. Psych: Awake, alert, with orientation to person, place and time. Behavior, mood, and affect are within normal limits. 21:16 Musculoskeletal/extremity: ROM: limited active range of motion due to pain, limited passive range of motion due to pain, Circulation is intact in all extremities. Sensation intact. Compartment Syndrome exam of affected extremity: is normal. 21:16 Skin: abscess, that is moderate sized, of the left arm, cellulitis, that is moderate, that is severe, confluent, induration, that is moderate is noted, 22:07 ECG was reviewed by the Attending Physician. [facility] Vital Signs: 20:56 Pulse 101; Resp 19; Temp 98.4; Pulse Ox 98% ; Weight 77.56 kg; Height 5 ft. 5 in. ; [facility] Pain 10/; 21:55 BP 158 / 73; Pulse 93; Resp 18; Pulse Ox 96% ; kt5 22:24 BP 152 / 70; Pulse 93; Resp 18; Pulse Ox 99% ; kt5 23:48 BP 129 / 96; Pulse 86; Resp 18; Pulse Ox 99% ; kt5 07/22 01:06 BP 136 / 68; Pulse 86; Resp 18; Pulse Ox 99% ; kt5 01:45 BP 141 / 85; Pulse 84; Resp 18; Pulse Ox 99% ; kt5 02:38 BP 118 / 68; Pulse 49; Resp 18; Pulse Ox 99% ; kt5 03:30 BP 141 / 79; Pulse 84; Resp 16; Temp 98.6; Pulse Ox 99% ; kt5 07/21 20:56 Body Mass Index 28.46 (77.56 kg, 165.1 cm) [facility] 07/21 20:56 Pain Scale: Adult [facility] MDM: 07/21 20:43 Medical Screening Exam initiated martinez 21:18 Differential diagnosis: abscess, allergic reaction, cellulitis, insect bite, closed martinez fracture, contusion, abrasion, tendonitis. Data reviewed: vital signs, nurses notes, lab test result(s), EKG, radiologic studies, doppler, plain films. Consideration of Admission/Observation Escalation of care including admission/observation considered. I considered the following discharge prescriptions or medication management in the emergency department Medications were administered in the Emergency Department. See MAR. Independent interpretation of the following test(s) in the Emergency Department EKG: See my EKG interpretation above. Test considered but Not performed: MRI: no mri. Historians other than the Patient: Daughter/Son: son well informed. Care significantly affected by the following chronic conditions: Diabetes, Hypertension, Obesity. 07/22 01:07 ED course: pt wants to stay in [place] [facility]. [facility] 07/21 21:03 Order name: Basic Metabolic Panel; Complete Time: 22:10 [facility] 07/21 21:03 Order name: CBC with Diff; Complete Time: 23:30 [facility] 07/21 21:03 Order name: LFT's; Complete Time: 22:10 [facility] 07/21 21:03 Order name: Magnesium; Complete Time: 22:10 [facility] 07/21 21:03 Order name: NT PRO-BNP; Complete Time: 22:10 [facility] 07/21 21:03 Order name: PT-INR; Complete Time: 21:55 [facility] 07/21 21:03 Order name: Troponin HS; Complete Time: 22:10 [facility] 07/21 21:03 Order name: Blood Culture Adult (2) [facility] 07/21 21:03 Order name: Lactate w/ 2H reflex if indic.; Complete Time: 21:55 [facility] 07/21 21:03 Order name: UA Rfx Mateo Cult if indicated; Complete Time: 21:55 [facility] 07/21 21:49 Order name: Urine Culture [facility] 07/21 21:50 Order name: Manual Differential; Complete Time: 23:30 [facility] 07/22 03:35 Order name: Glucose, Ancillary Testing; Complete Time: 03:36 [facility] 07/21 21:03 Order name: XRAY Chest (1 view); Complete Time: 23:30 [facility] 07/21 21:03 Order name: US Extremity Venous Unilateral Ltd [facility] 07/21 21:15 Order name: UPPER EXTREMITY VENOUS UNILATE; Complete Time: 23:30 [facility] 07/21 23:48 Order name: Humerus Left XRAY [facility] 07/21 21:03 Order name: EKG; Complete Time: 21:12 [facility] 07/21 21:03 Order name: Cardiac monitoring; Complete Time: 21:51 [facility] 07/21 21:03 Order name: EKG - Nurse/Tech; Complete Time: 21:51 [facility] 07/21 21:03 Order name: IV Saline Lock; Complete Time: 21:53 [facility] 07/21 21:03 Order name: Labs collected and sent; Complete Time: 21:53 [facility] 07/21 21:03 Order name: O2 Per Protocol; Complete Time: 21:49 [facility] 07/21 21:03 Order name: O2 Sat Monitoring; Complete Time: 21:49 [facility] 07/22 03:03 Order name: Blood Glucose Level; Complete Time: 03:24 [facility] EC/17 22:07 Rate is 97 beats/min. Rhythm is regular. QRS [place] is Normal. TN interval is prolonged [facility] at 210 msec. QRS interval is normal. QT interval is normal. No Q waves. T waves are Normal. No ST changes noted. Clinical impression: 1st degree heart block and No evidence of ischemia. Administered Medications: 21:50 Drug: fentaNYL (PF) IVP 25 mcg IVP once Route: IVP; Site: PICC; kt5 23:52 Follow up: Response: No adverse reaction; Pain is decreased kt5 21:50 Drug: Ondansetron IVP 8 mg IVP once; over 2 minutes Route: IVP; Site: PICC; kt5 23:52 Follow up: Response: No adverse reaction; Nausea is decreased kt5 21:50 Drug: Ampicillin-Sulbactam Sodium IVPB 3 grams IVPB once over 30 mins; (mix in 100 mL kt5 NS) Route: IVPB; Infused Over: 30 mins; Site: [facility]; 22:17 Follow up: Response: No adverse reaction kt5 23:51 Follow up: Response: No adverse reaction; IV Status: Completed infusion kt5 21:51 Drug: NS 0.9% IV (30 ml/kg) 30 ml/kg IV at bolus once; Sepsis Protocol; to be given as kt5 a bolus over 90 minutes Route: IV; Rate: bolus; Site: PICC; 23:52 Follow up: Response: No adverse reaction; IV Status: Completed infusion kt5 22:20 Drug: vancoMYCIN IVPB 1 grams IVPB once over 2 hrs Route: IVPB; Infused Over: 2 hrs; kt5 Site: [facility]; 07/22 00:19 Follow up: Response: No adverse reaction; IV Status: Completed infusion kt5 00:21 Drug: Potassium PO Effervescent Tablet 25 mEq PO once; dissolve in 4 ounces of water or kt5 juice Route: PO; 00:34 Follow up: Response: No adverse reaction kt5 01:47 Follow up: Response: No adverse reaction kt5 03:33 Drug: Insulin Glargine Sub-Q 30 units Sub-Q once {Co-Signature: vc1 (Rayna Garcia kt5 RN).} Route: Sub-Q; Site: left lower abdomen; 03:46 Follow up: Response: No adverse reaction kt5 Disposition Summary: 07/22/25 00:40 Transfer Ordered Notes: Reason: Higher level of care(07/22/25 00:40) martinez Condition: Fair(07/22/25 00:40) martinez Problem: an ongoing problem(07/22/25 00:40) martinez Symptoms: have worsened(07/22/25 00:40) martinez Transfer Location: [facility](07/22/25 03:02) martinez Accepting Physician: to [facility](07/22/25 03:48) kt5 Diagnosis - Cellulitis and acute lymphangitis of other parts of limb - left upper arm(07/22/25 martinez 00:40) - Cutaneous abscess of left upper limb - worse martinez - Type 2 diabetes mellitus with hyperglycemia(07/22/25 00:40) martinez - Fever, unspecified(07/22/25 00:40) martinez - UTI/ Urinary tract infection, site not specified(07/22/25 00:40) martinez - Hypokalemia martinez Forms: - Medication Reconciliation Form martinez - SBAR form martinez Signatures: Dispatcher [employer] EDDex Abraham MD MD cha Gallardo, Rommel RN RN rg5 Linnette Durbin RN RN kt5 Rayna Garcia RN vc1 Corrections: (The following items were deleted from the chart) 07/21 21:12 21:12 BASIC METABOLIC PANEL+C.LAB.BRZ ordered. EDMS EDMS 21:12 21:12 CBC+H.LAB.BRZ ordered. EDMS EDMS 21:12 21:12 HEPATIC FUNCTION+C.LAB.BRZ ordered. EDMS EDMS 21:12 21:12 MAGNESIUM+C.LAB.BRZ ordered. EDMS EDMS 21:12 21:12 PROBNP+C.LAB.BRZ ordered. EDMS EDMS 21:12 21:12 PROTIME (+INR)+COAG.LAB.BRZ ordered. EDMS EDMS 21:12 21:12 Troponin High Sensitivity+C.LAB.BRZ ordered. EDMS EDMS 21:12 21:12 BLOOD CULTURE*+BA.LAB.BRZ ordered. EDMS EDMS 21:12 21:12 LACTATE+C.LAB.BRZ ordered. EDMS EDMS 21:12 21:12 UA Rfx Mateo Cult if indicated+U.LAB.BRZ ordered. EDMS EDMS 21:56 21:22 to [facility] martinez martinez 22:12 21:56 to [facility] martinez martinez 23:20 21:22 [facility] martinez martinez 23:20 22:12 to [facility] martinez martinez 23:20 23:20 to [facility] martinez martinez 23:31 23:20 to [facility] martinez martinez 23:47 21:22 Higher level of care martinez martinez 23:47 21:22 Fair martinez martinez 23:47 21:22 new martinez martinez 23:47 21:22 have worsened martinez martienz 23:47 21:22 Fever, unspecified martinez martinez 23:47 21:22 Cellulitis and acute lymphangitis of other parts of limb - left upper extrmity galdino 23:47 21:22 Type 2 diabetes mellitus with hyperglycemia martinez martinez 23:47 21:56 Elevated white blood cell count martinez martinez 23:47 22:12 UTI/ Urinary tract infection, site not specified martinez martinez 23:47 23:20 [facility] martinez martinez 23:47 23:31 to [facility] martinez martinez 23:47 23:31 Bandemia martinez henriquez 07/22 00:37 07/21 23:50 Inpatient Admission martinez henriquez 07/22 00:37 07/21 23:50 Benny Luo cha, cha 07/22 00:37 07/21 23:50 Telemetry/MedSurg (Inpatient) martinez henriquez 07/22 00:37 07/21 23:50 Stable martinez henriquez 07/22 00:37 07/21 23:50 new martinez henriquez 07/22 00:37 07/21 23:50 have improved martinez henriquez 07/22 00:37 07/21 23:50 Standard martinez martinez 07/22 00:37 07/21 23:50 martinez henriquez 07/22 00:37 07/21 23:50 Pain in left upper arm martinez henriquez 07/22 00:37 07/21 23:50 Cellulitis and acute lymphangitis of other parts of limb - upper arm [facility] 07/22 00:37 07/21 23:50 Elevated white blood cell count [facility] 07/22 00:37 07/21 23:50 Bandemia [facility] 07/22 00:37 07/21 23:50 Type 2 diabetes mellitus with hyperglycemia [facility] 07/22 00:37 07/21 23:50 UTI/ Urinary tract infection, site not specified [facility] 07/22 02:43 00:40 [facility] 03:02 00:40 [facility] 03:02 02:43 to [facility] 03:48 03:[address] [facility] kt[facility]
[2025-07-21] MEDS ORDERED: ONDANSETRON 4 MG/2 ML VIAL ONE (21:30)
[2025-07-21] MEDS ORDERED: FENTANYL CITR 100 MCG/2 ML ONE (21:31)
[2025-07-21] MEDS ORDERED: AMPICILLIN/SULBACTAM 3GM/VIAL ONE (21:31)
[2025-07-21] MEDS ORDERED: VANCOMYCIN 1 GM/VIAL ONE (21:32)
[2025-07-21] MEDS ORDERED: NA CHLORIDE 0.9% 3,000 ML ONE (21:33)
[2025-07-21] MEDS ORDERED: NA CHLORIDE 0.9% 200 ML ONE (21:34)
[2025-07-21 21:42] LABS: PT Prothrombin Time 13.7 SECONDS (10-13.0); Protime INR 1.22
[2025-07-21 21:45] LABS: Sqamous Epithelial None Seen /HPF (None Seen); Urine Culture Reflex Order REFLEXED; Urine Microscopic Reflex YN ORDER UMIC
[2025-07-21 21:46] LABS: Hematocrit 30.6 % (39.6-49.0); Hemoglobin 10.2 g/dL (13.6-17.9); MCH 28.6 pg (27.0-35.0); MCHC 33.5 g/dL (32.0-36.0); MCV 85.6 fL (80-100); MPV 9.3 fL (7.6-11.3); RBC Red Blood Cell Count 3.58 M/uL (4.33-5.43); White Blood Count 12.40 thou/uL (4.3-10.9)
[2025-07-21 21:47] LABS: Absolute Lymphocytes (CBC) 0.6 K/uL (0.7-4.9); Nucleated RBC Absolute Count 0.0 (0-0); Nucleated Red Blood Cells % 0.1 % (0-0)
[2025-07-21 21:56] LABS: AST/SGOT 16 U/L (15-37); Albumin 1.6 g/dL (3.4-5.0); Albumin/Globulin Ratio 0.3 (1.1-1.8); Alkaline Phosphatase 199 U/L (45-117); Anion Gap 12.1 mEq/L (5.0-15.0); BUN Blood Urea Nitrogen 24 mg/dL (7-18); Bilirubin Indirect, Calculated 0.3 mg/dL (0.2-0.8); Globulin 5.0 g/dL (2.3-3.5); Glucose Level 314 mg/dL (74-106); Magnesium 2.3 mg/dL (1.6-2.4); NT PRO-BNP 5515 pg/mL (<125); Potassium 3.1 mEq/L (3.5-5.1); Troponin High Sensitivity 9.5 pg/mL (<58.9)
[2025-07-21 22:03] LABS: ALT/SGPT < 14 U/L (16-61)
--- NOTE | 2025-07-21 22:17 | RAD REPORT ---
EXAMINATION: UPPER EXTREMITY VENOUS UNILATE CLINICAL INDICATION: Male, 59 years old.PAIN TECHNIQUE: Multiplanar grayscale and color Doppler images were obtained in a upper extremity venous ultrasound. Spectral analysis of the Doppler waveforms were performed. FINDINGS: The internal jugular vein, subclavian vein, axillary vein, basilic vein, brachial vein, cephalic vein , radial vein, and ulnar vein were evaluated and patent. IMPRESSION: No evidence of deep venous thrombosis in the left upper extremity.
--- NOTE | 2025-07-21 22:23 | RAD REPORT ---
EXAM: Chest Single View HISTORY: 59 years Male COUGH COMPARISON: 08/13/2024 FINDINGS: LUNGS/PLEURA: The lungs are clear. No pleural effusions or pneumothorax. No pulmonary edema. Minimal linear scarring at the left lung base. CARDIAC/MEDIASTINUM: The cardiac silhouette is within normal limits. UPPER ABDOMEN: No significant abnormality. BONES: No acute abnormality. LINES/TUBES/OTHER: N/A IMPRESSION: No evidence of acute cardiopulmonary disease. No significant change from prior.
[2025-07-21 23:18] LABS: Differential Total Cells Count 100; Segmented Neutrophils 79 % (40-80)
[2025-07-21 23:19] LABS: Blood Morphology Comment NOT SEEN (NOT SEEN)
[2025-07-22] MEDS ORDERED: POTASSIUM 25 MEQ EFFERV TAB ONE (00:20)
--- NOTE | 2025-07-22 02:04 | RAD REPORT ---
EXAM: XR Left Humerus, 2 or More Views CLINICAL HISTORY: PAIN TECHNIQUE: Frontal and lateral views of the left humerus. COMPARISON: No relevant prior studies available. FINDINGS: Bones/joints: Unremarkable. No acute fracture. No dislocation. Soft tissues: Generalized soft tissue edema. IMPRESSION: Generalized soft tissue edema. No acute fracture. Electronically signed by: Salvador Choi MD 07/22/2025 01:51 AM CDT RP Due to temporary technical issues with the PACS/ADVIZE reporting system, reports are being jeff d by the in-house radiologist without review as a courtesy to ensure prompt reporting the interpreting radiologist is fully responsible for the content of the report. Transcribed Date/Time: 07/22/2025 2:03 AM
[2025-07-22] MEDS ORDERED: INSULIN GLARGINE 100 UNIT/ML SQ ONE (03:27)
[2025-07-22 04:28] VITALS: O2SAT 99
[2025-07-22 04:37] VITALS: BP 141/79; TEMP 98.6
== END 2025-07-22 03:48 | disposition short-term general hospital (02) ==
LOC: ER 20:34
DX: L03.114 Cellulitis of left upper limb (principal); L03.124 Acute lymphangitis of left upper limb; E11.65 Type 2 diabetes mellitus with hyperglycemia; N39.0 Urinary tract infection, site not specified; E87.6 Hypokalemia; R50.9 Fever, unspecified
CPT/HCPCS: 36415; 71045; 80048; 80076; 81001; 82947; 83605; 83735; 83880; 84484; 85025; 85610; 87040; 87086; 87088; 93005; 93971; 96365; 96367; 96372; 96375; 99285; J0295; J2405; J3010; J3370; J7030